=== PATIENT | male | born 1935 | race Caucasian/White ===

== ENCOUNTER 2017-06-29 20:07 | Inpatient (IN) | payer OTHER ==
[~2017-06-29] VITALS: Ht 185.4 cm; Wt 106.7 kg
[~2017-06-29 20:07] MED LIST: ATOR10TA82 PO; LISI-461 PO; MECL1TAB42 PO; METF500T PO; MULT-513 PO; OMEG10007 PO; TPRSR25 PO
[2017-06-29 20:51] LABS: BASO % 0.2 %; BASO ABS # 0.02 K/uL (0-0.2); EOS % 2.2 %; HEMATOCRIT 32.4 % (42-52); HEMOGLOBIN 9.8 g/dL (14.0-18.0); IG# 0.03 K/uL (0.00-0.02); LYMPH % 21.5 %; LYMPH ABS # 1.98 K/uL (1.2-3.4); MEAN CELL VOLUME 71.4 fL (80-100); MEAN CORPUSCULAR HEMOGLOBIN 21.6 pg (25-34); MEAN CORPUSCULAR HGB CONC 30.2 g/dl (32-36); MEAN PLATELET VOLUME 9.3 fL (7.4-10.4); MONO % 7.5 %; MONO ABS # 0.69 K/uL (0.11-0.59); NEUT % 68.3 %; NEUT ABS # 6.29 K/uL (1.4-6.5); PLATELET COUNT 317 K/uL (130-400); RED CELL DISTRIBUTION WIDTH SD 49.1 fL (36.4-46.3); WHITE BLOOD COUNT 9.21 K/uL (4.8-10.8)
[2017-06-29 21:13] LABS: ALBUMIN 3.2 gm/dl (3.4-5.0); CALCIUM 8.9 mg/dl (8.5-10.1); POTASSIUM 3.9 mmol/L (3.5-5.1)
[2017-06-29 21:16] LABS: TOTAL PROTEIN 7.2 gm/dl (6.4-8.2)
--- NOTE | 2017-06-29 21:18 | EMERGENCY ROOM VISIT NOTE ---
History Report prepared by Wally: Mauricio Crook Under the Supervision of: Dr. Guzman Tadeo M.D. First contact with patient: 20:14 Chief Complaint: BLEEDING Stated Complaint: PASSING BLOOD History of Present Illness The patient is a 82 year old male who presents to the Emergency Room with complaints of persistent rectal bleeding beginning today. He states that he has seen "bright red" bleeding, but his stool appears very dark. He also complains of generalized weakness and diarrhea. Underwear. The patient denies abdominal pain, chest pain, SOB, or dizziness. He is on baby aspirin but denies using any other blood thinning medication. He was admitted to the hospital last month for similar symptoms, and received blood transfusions. He was scheduled for outpatient EGD and colonoscopy but not till July 17. Source of History: patient Onset: Today Position: other (rectum) Quality: other (bleeding) Timing: other (persistent) Associated Symptoms: + diarrhea, + weakness (generalized), No chest pain, No SOB, No abdominal pain Note: The patient denies any dizziness. Review of Systems See HPI for pertinent positives & negatives. A total of 10 systems reviewed and were otherwise negative. Past Medical & Surgical Medical Problems: (1) DM (diabetes mellitus) (2) Hypercholesteremia Surgical Problems: (1) S/P hip replacement Family History Omitted secondary to age Social History Smoking Status: Never Smoker Alcohol Use: occasionally Marital Status: Housing Status: lives with family Occupation Status: retired Current/Historical Medications Scheduled Atorvastatin (Lipitor), 10 MG PO HS Fish Oil ([place]-3), 1,000 MG PO QAM Lisinopril (Lisinopril), 10 MG PO QAM Meclizine Hcl (Meclizine Hcl), 1 TAB PO TID Metformin Hcl (Glucophage), 500 MG PO BID Metoprolol Succinate (Metoprolol Succinate ER), 25 MG PO DAILY Multivitamins/Minerals (Mvi With Minerals), 1 TAB PO QAM Allergies Coded Allergies: Oxycodone (Verified Adverse Reaction, Intermediate, MAKES PT HALLUCINATES , 06/29/17) Hydrocodone (Verified Adverse Reaction, Unknown, MAKES PT HALLUCINATE, 06/05) Physical Exam Vital Signs Date Time Temp Pulse Resp B/P (MAP) Pulse Ox O2 Delivery O2 Flow Rate FiO2 06/29/17 20:11 36.3 110 20 144/70 100 Room Air Physical Exam Constitutional: Vital signs reviewed. Eyes: Pupils are equal round reactive to light. Conjunctiva are noninjected. ENT: Pharynx is clear without erythema or exudate. Mucous membranes are moist. Neck supple without meningeal signs. Respiratory: Clear to auscultation bilaterally. Breath sounds are equal bilaterally. Cardiovascular: Regular rate and rhythm. No rubs or gallops. GI: Soft, nondistended and nontender. Bowel sounds are present. Rectal: Guaiac positive, brown stool. No gross blood. Musculoskeletal: No peripheral edema. No lower extremity tenderness. Integumentary: No cyanosis. Neurological: The patient is awake and alert. No focal deficits. Psychiatric: Normal affect. Medical Decision & Procedures Laboratory Results 06/29/17 20:30 Red Blood Count 4.54, Mean Corpuscular Volume 71.4, Mean Corpuscular Hemoglobin 21.6, Mean Corpuscular Hemoglobin Concent 30.2, Mean Platelet Volume 9.3, Neutrophils (%) (Auto) 68.3, Lymphocytes (%) (Auto) 21.5, Monocytes (%) (Auto) 7.5, Eosinophils (%) (Auto) 2.2, Basophils (%) (Auto) 0.2, Neutrophils # (Auto) 6.29, Lymphocytes # (Auto) 1.98, Monocytes # (Auto) 0.69, Eosinophils # (Auto) 0.20, Basophils # (Auto) 0.02 06/29/17 20:30 Test 06/29/17 20:30 White Blood Count 9.21 K/uL (4.8-10.8) Red Blood Count 4.54 M/uL (4.7-6.1) Hemoglobin 9.8 g/dL (14.0-18.0) Hematocrit 32.4 % (42-52) Mean Corpuscular Volume 71.4 fL (80-100) Mean Corpuscular Hemoglobin 21.6 pg (25-34) Mean Corpuscular Hemoglobin Concent 30.2 g/dl (32-36) Platelet Count 317 K/uL (130-400) Mean Platelet Volume 9.3 fL (7.4-10.4) Neutrophils (%) (Auto) 68.3 % Lymphocytes (%) (Auto) 21.5 % Monocytes (%) (Auto) 7.5 % Eosinophils (%) (Auto) 2.2 % Basophils (%) (Auto) 0.2 % Neutrophils # (Auto) 6.29 K/uL (1.4-6.5) Lymphocytes # (Auto) 1.98 K/uL (1.2-3.4) Monocytes # (Auto) 0.69 K/uL (0.11-0.59) Eosinophils # (Auto) 0.20 K/uL (0-0.5) Basophils # (Auto) 0.02 K/uL (0-0.2) RDW Standard Deviation 49.1 fL (36.4-46.3) RDW Coefficient of Variation 19.0 % (11.5-14.5) Immature Granulocyte % (Auto) 0.3 % Immature Granulocyte # (Auto) 0.03 K/uL (0.00-0.02) Prothrombin Time 10.7 SECONDS (9.0-12.0) Prothromb Time International Ratio 1.0 (0.9-1.1) Activated Partial Thromboplast Time 25.0 SECONDS (21.0-31.0) Partial Thromboplastin Ratio 1.0 Anion Gap 8.0 mmol/L (3-11) Est Creatinine Clear Calc Drug Dose 72.6 ml/min Estimated GFR () 80.9 Estimated GFR (Non- 69.8 BUN/Creatinine Ratio 27.2 (10-20) Calcium Level 8.9 mg/dl (8.5-10.1) Direct Bilirubin 0.1 mg/dl (0-0.2) Alanine Aminotransferase (ALT/SGPT) 20 U/L (12-78) Albumin 3.2 gm/dl (3.4-5.0) Laboratory results as reviewed by me. ED Course 2018: The patient was evaluated in room B7. A complete history and physical exam was performed. 2104: I reevaluated the patient. He is resting comfortably. I recommended hospitalization due to the GI bleed and anemia. He verbalized agreement and understanding of the treatment plan. The patient will be evaluated for further management. Medical Decision This is an 82-year-old male presents with dizziness and rectal bleeding. Differential diagnosis includes GI bleed, AVM, diverticulosis, mass, anemia. I did perform a limited focused review of portions of the patient's old chart on the electronic medical record. The patient was admitted June 18 for anemia and dizziness. He had Hemoccult positive stool at this time. He received a transfusion and was sent for outpatient EGD and colonoscopy. Last hemoglobin was 9.6 on June 19. I did evaluate the patient as noted above. Rectal examination shows guaiac positive dark brown stool. No melena or gross blood. IV access was established. The patient was placed on a continuous monitoring engineer. I did order and review the patient's blood work as noted in the electronic medical record. He is anemic. I did discuss the test results with the patient. Given he is symptomatic and anemic and has a history of rectal bleeding requiring transfusion I did feel he needed to be hospitalized. I did discuss the case with the hospitalist and gearcase assembler. Medication Reconcilliation Current Medication List: was personally reviewed by me Blood Pressure Screening Patient's blood pressure: Elevated blood pressure Blood pressure disposition: Referred to PCP Consults Time Called: 2104 Consulting Physician: Dr. Christa Wright Hospitalist Returned Call: [address] Goodwin of [facility]. We discussed the patient and his results. The patient will be further evaluated by Rohit. Impression Primary Impression: GI bleed Additional Impression: Anemia Scribe Attestation The scribe's documentation has been prepared under my direct and personally reviewed by me in its entirety. I confirm that the note above accurately reflects all work, treatment, procedures, and medical decision making performed by me. Departure Information Dispostion Being Evaluated By Hospitalist Referrals Ena Lau M.D. (MEDICAL) (PCP) Patient Instructions My [facility] Problem Qualifiers Primary Impression: GI bleed GI bleed type/associated pathology: unspecified gastrointestinal hemorrhage type Qualified Codes: K92.2 - Gastrointestinal hemorrhage, unspecified Additional Impression: Anemia Anemia type: unspecified type Qualified Codes: D64.9 - Anemia, unspecified
--- NOTE | 2017-06-29 21:20 | History and Physical ---
History & Physical Date & Time of Service: Jun 29, 2017 at 21:20 Chief Complaint: Passing Blood Primary Care Physician: Ena Lau M.D. (MEDICAL) History of Present Illness Source: patient, spouse Patient is an 82 yr male with PMH of HTN, HLP, DM II, Prostate cancer s/ p radiation, mood disorder, chronic dizziness and other problems who was recently discharged from [facility] after being treated for Dizziness and PRBCs transfusion for anemia/GI bleeding presents with history of bright red per rectum which he noticed to day. Patient is a poor historian and most of the history is obtained from Patient's spouse and old records. Patient reports noticing bright red blood in his underwear today and also some dark colored stools and so came to ED for further evaluation. Also reports generalized weakness and has loose BM today. Reports his dizziness is better when compared to prior admission. He was scheduled for EGD/Colonoscopy on Jul 17 by . In ED patient had dark colored stool and is guaiac positive but no active bleeding. He is on Aspirin at home, denies any NSAIDs or Antibiotic use/Blood thinners. Also denies any chest pain, SOB, fever, chills, abdominal pain, nausea, vomiting, headache, cough, hematuria, dysuria. Past Medical/Surgical History Medical Problems: (1) DM (diabetes mellitus) Status: Chronic (2) Hypercholesteremia Status: Chronic Family History Omitted secondary to age Not significant Social History Smoking Status: Never Smoker Alcohol Use: socially Drug Use: none Marital Status: Housing status: lives alone Occupational Status: retired Immunizations History of Influenza Vaccine: No History of Tetanus Vaccine?: Unknown History of Pneumococcal: No History of Hepatitis B Vaccine: No Multi-Drug Resistant Organisms History of MDRO: No Allergies Coded Allergies: Oxycodone (Verified Adverse Reaction, Intermediate, MAKES PT HALLUCINATES , 06/29/17) Hydrocodone (Verified Adverse Reaction, Unknown, MAKES PT HALLUCINATE, 06/05) Home Medications Scheduled Aspirin (Aspirin Ec), 81 MG PO DAILY Atorvastatin (Lipitor), 10 MG PO HS Fish Oil ([place]-3), 1,000 MG PO QAM Lisinopril (Lisinopril), 10 MG PO QAM Meclizine Hcl (Meclizine Hcl), 1 TAB PO TID Metformin Hcl (Glucophage), 500 MG PO BID Metoprolol Succinate (Metoprolol Succinate ER), 25 MG PO DAILY Multivitamins/Minerals (Mvi With Minerals), 1 TAB PO QAM Review of Systems See HPI for pertinent positives & negatives. A total of 10 systems reviewed and were otherwise negative. Physical Exam Vital Signs Date Time Temp Pulse Resp B/P (MAP) Pulse Ox O2 Delivery O2 Flow Rate FiO2 06/29/17 20:11 36.3 110 20 144/70 100 Room Air General Appearance: WD/WN, no apparent distress Head: normocephalic, atraumatic Eyes: normal inspection, PERRL, EOMI, sclerae normal ENT: normal ENT inspection, + pertinent finding (hearing loss) Neck: supple, trachea midline Respiratory/Chest: chest non-tender, lungs clear, normal breath sounds, no respiratory distress, no accessory muscle use Cardiovascular: regular rate, rhythm, no murmur, + pertinent finding (1+ b/l edema) Abdomen/GI: normal bowel sounds, non tender, soft, + pertinent finding (Obese) Back: normal inspection Extremities/Musculoskelatal: normal inspection, + pedal edema Neurologic/Psych: sample color maker II-XII nml as tested, no motor/sensory deficits, alert, normal mood/affect, oriented x 3 Skin: normal color, warm/dry Diagnostics Laboratory Results Results Past 24 Hours Test 06/29/17 20:30 Range/Units White Blood Count 9.21 4.8-10.8 K/uL Red Blood Count 4.54 4.7-6.1 M/uL Hemoglobin 9.8 14.0-18.0 g/dL Hematocrit 32.4 42-52 % Mean Corpuscular Volume 71.4 80-100 fL Mean Corpuscular Hemoglobin 21.6 25-34 pg Mean Corpuscular Hemoglobin Concent 30.2 32-36 g/dl Platelet Count 317 130-400 K/uL Mean Platelet Volume 9.3 7.4-10.4 fL Neutrophils (%) (Auto) 68.3 % Lymphocytes (%) (Auto) 21.5 % Monocytes (%) (Auto) 7.5 % Eosinophils (%) (Auto) 2.2 % Basophils (%) (Auto) 0.2 % Neutrophils # (Auto) 6.29 1.4-6.5 K/uL Lymphocytes # (Auto) 1.98 1.2-3.4 K/uL Monocytes # (Auto) 0.69 0.11-0.59 K/uL Eosinophils # (Auto) 0.20 0-0.5 K/uL Basophils # (Auto) 0.02 0-0.2 K/uL RDW Standard Deviation 49.1 36.4-46.3 fL RDW Coefficient of Variation 19.0 11.5-14.5 % Immature Granulocyte % (Auto) 0.3 % Immature Granulocyte # (Auto) 0.03 0.00-0.02 K/uL Prothrombin Time 10.7 9.0-12.0 SECONDS Prothromb Time International Ratio 1.0 0.9-1.1 Activated Partial Thromboplast Time 25.0 21.0-31.0 SECONDS Partial Thromboplastin Ratio 1.0 Sodium Level 139 136-145 mmol/L Potassium Level 3.9 3.5-5.1 mmol/L Chloride Level 105 98-107 mmol/L Carbon Dioxide Level 27 21-32 mmol/L Anion Gap 8.0 3-11 mmol/L Blood Urea Nitrogen 27 7-18 mg/dl Creatinine 1.00 0.60-1.40 mg/dl Est Creatinine Clear Calc Drug Dose 72.6 ml/min Estimated GFR () 80.9 Estimated GFR (Non- 69.8 BUN/Creatinine Ratio 27.2 10-20 Random Glucose 161 70-99 mg/dl Calcium Level 8.9 8.5-10.1 mg/dl Total Bilirubin 0.3 0.2-1 mg/dl Direct Bilirubin 0.1 0-0.2 mg/dl Aspartate Amino Transf (AST/SGOT) 15 15-37 U/L Alanine Aminotransferase (ALT/SGPT) 20 12-78 U/L Alkaline Phosphatase 81 45-117 U/L Total Protein 7.2 6.4-8.2 gm/dl Albumin 3.2 3.4-5.0 gm/dl Impression Assessment and Plan Acute GI bleed: unclear source Admit in Tele Start on IV Protonix Hold Aspirin Avoid NSAIDs use Hb:9.8 (9.6 at time of discharge on last admission) Monitor H&H Transfuse PRBCs PRN GI consulted IV fluids NPO for now HTN: stable continue home meds DM II: Hold Metformin ISS, Acuu checks Last A1C:6.5 H/O Prostate cancer s/p radiation Mood disorder: stable Chronic Anemia:Likely multifactorial Monitor Hb 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
[2017-06-29] MEDS ORDERED: ONDANSETRON INJ 2 MG/ML 2 ML VIAL IV PRN (22:00)
[2017-06-29] MEDS ORDERED: ACETAMINOPHEN 325 MG TAB PO PRN (22:00)
[2017-06-29] MEDS ORDERED: ASPI81TA28 PO (22:01)
[2017-06-29] MEDS ORDERED: GLUCOSE 10 TABS/TUBE PO PRN (22:15)
[2017-06-29] MEDS ORDERED: GLUCOSE 40% GEL 15 GM TUBE PO PRN (22:15)
[2017-06-29] MEDS ORDERED: DEXTROSE 50% 50 ML SYR IV PRN (22:15)
[2017-06-29] MEDS ORDERED: GLUCAGON FOR INJ 1 MG VIAL SQ PRN (22:15)
--- NOTE | 2017-06-29 22:40 | NUR ---
A: Pt admitted for GI bleed. A+O X 4, wears glasses and hearing aides. VSS. SR on monitor, denies chest pain or SOB. 1 assist OOB, dizziness at times, fallen in past 3 months, will apply red socks, encouraged to use call bazan for assistance. SL in R wrist, WNL. Denies pain. Oriented to room and call bazan.
[2017-06-29] MEDS ORDERED: PANTOprazole INJ 40 MG in SYRINGE 0 ML IV ONE (22:45)
[2017-06-29] MEDS ORDERED: SODIUM CHLORIDE 0.9% 1000ML 1,000 ML IV SCH (22:45)
[2017-06-29 23:55] VITALS: BP 130/68; PULSE 76; TEMP 36.9; O2SAT 95
[2017-06-30] VITALS (8 sets, daily range): BP systolic 107–155; BP diastolic 69–82; PULSE 69–107; TEMP 36.3–36.9; O2SAT 94–100; Ht 185.4 cm; Wt 106.7 kg
--- NOTE | 2017-06-30 00:40 | NUR ---
A: Pt is A&OX4. VSS. SR on the monitor with periods of possible dropped beats or pauses. notified. Lung sounds are clear on R/A. Denies pain. NSS infusing at 80ml/hr. Hourly rounding maintained for safety. Will continue to monitor.
[2017-06-30] MEDS ORDERED: MAGNESIUM SULFATE 1GM / D5W 1 GM in PREMIXED IN D5W 100 ML IV STA (01:29)
--- NOTE | 2017-06-30 01:29 | NUR ---
A; EKG OBTAINED PER MD ORDER. EKG TRANSMITTED.
[2017-06-30] MEDS ORDERED: POTASSIUM CHLORIDE 10 MEQ TABCR PO STA (01:30)
[2017-06-30] MEDS ORDERED: SODIUM CHLORIDE 0.9% IV SCH ×2 (01:45)
[2017-06-30] MEDS ORDERED: POTASSIUM CHLR IV SCH ×2 (01:45)
[2017-06-30] MEDS ORDERED: WTR IV SCH ×2 (01:45)
[2017-06-30] MEDS: NSS + 20MEQ KCL 1000ML 1,000 ML IV SCH ×2 (02:07→17:08)
--- NOTE | 2017-06-30 04:00 | NUR ---
A: Pt is resting comfortably in bed. EKG done during the night. SR on the monitor. Possible pauses / dropped beats have decreased in frequency. 1g mag given and NSS + 20MEQ kcl infusing at 80ml/hr. VSS. Hourly rounding maintained for safety. Will continue to monitor.
[2017-06-30 04:51] LABS: HEMATOCRIT 27.9 % (42-52); HEMOGLOBIN 8.6 g/dL (14.0-18.0); MEAN CELL VOLUME 70.6 fL (80-100); MEAN CORPUSCULAR HEMOGLOBIN 21.8 pg (25-34); MEAN CORPUSCULAR HGB CONC 30.8 g/dl (32-36); MEAN PLATELET VOLUME 9.5 fL (7.4-10.4); PLATELET COUNT 270 K/uL (130-400); RED CELL DISTRIBUTION WIDTH CV 18.9 % (11.5-14.5); RED CELL DISTRIBUTION WIDTH SD 49.2 fL (36.4-46.3); WHITE BLOOD COUNT 7.36 K/uL (4.8-10.8)
[2017-06-30 05:17] LABS: CALCIUM 8.5 mg/dl (8.5-10.1); CREATININE 0.83 mg/dl (0.60-1.40); POTASSIUM 3.9 mmol/L (3.5-5.1)
[2017-06-30] MEDS: INSULIN ASPART 100 UNITS/ML 3 ML PEN SC SCH ×4 (06:30→21:42)
--- NOTE | 2017-06-30 08:00 | NUR ---
A/ID: Patient admitted with GI bleed. A&OX4. Denies pain, SOB, N/V. Skin intact. NSS+20Kcl at 80ml/hr infusing. No edema, positive pulses. Lungs are clear and diminished on room air. Abdomen is obese, nontender, soft. NSR with 1st degree, IVCD, PAC, SA and mobitz on the monitor. BSG 136. NPO except meds this morning for possible EGD. Minimal assist OOB. Have not visualized a bowel movement yet this morning. Pt is from home. Encouraged to ring for assistance. Hourly rounding. Will continue to monitor.
--- NOTE | 2017-06-30 08:19 | Gastrointestinal Consultation ---
Gastrointestinal Consultation Date of Consultation: Jun 30, 2017 Attending Physician: Aileen Consulting Physician: Cliff Reason for Consultation: GIB History of Present Illness Patient is a 82 year old male w/ history of HTN, dyslipidemia, prostate CA S/P radiation who presented through the ED last night for evaluation of rectal bleeding. Pt was seen and evaluated, chart reviewed. Of note, he was admitted for lightheadedness, dizziness and rectal bleeding early June, discharged w / plan for outpatient EGD/Colonoscopy in two weeks. He notes return of BRBPR about two days ago. He has had 2-3 semi-formed stools with BRB. No clots. No melena. No abdominal pain. No rectal pain. Denies fever, chills, CP, SOB, abdominal pain. In ED, VSS, afebrile without leukocytosis. Hb was 9.8, repeat this AM 8.6. BUN 27, creat 1. He is awake, alert, oriented, sitting up in bed. Past Medical/Surgical History Medical Problems: (1) Anemia Status: Acute (2) Anemia Status: Acute (3) Dizziness Status: Acute (4) GI bleed Status: Acute (5) GI bleed Status: Acute (6) Right leg DVT Status: Acute (7) Sprain of right knee Status: Acute Past Medical History: HTN, Hyperlipidemia, DM2, Prostate Cancer S/P radiation, DVT Past Surgical History: Bilat hip replacements Bilat shoulder replacements Urinary/prostate procedures. Colonoscopy Family History Omitted secondary to age Social History Smoking Status: Former Smoker Alcohol Use: occasionally Drug Use: none Marital Status: Housing Status: lives with family Occupation Status: retired Allergies Coded Allergies: Oxycodone (Verified Adverse Reaction, Intermediate, MAKES PT HALLUCINATES , 06/29/17) Hydrocodone (Verified Adverse Reaction, Unknown, MAKES PT HALLUCINATE, 06/05) Current Medications Home Meds and Scripts Medications Dose Route/Sig Max Daily Dose Days Date Category Aspirin Ec (Aspirin) 81 Mg Tab 81 Mg PO DAILY 06/29/17 Reported Meclizine Hcl Unknown Strength Tab 1 Tab PO TID 06/18/17 Reported Lipitor (Atorvastatin Calcium) 10 Mg Tab 10 Mg PO HS 06/18/17 Reported Metoprolol Succinate ER (Metoprolol Succinate) 25 Mg Tabcr 25 Mg PO DAILY 09/03/15 Reported Mvi With Minerals (Multivitamins/Minerals) Tab 1 Tab PO QAM 01/11/14 Reported [place]-3 (Fish Oil) 1 Ea Cap 1,000 Mg PO QAM 01/11/14 Reported Lisinopril 10 Mg Tab 10 Mg PO QAM 01/11/14 Reported Glucophage (Metformin Hcl) 500 Mg Tab 500 Mg PO BID 12/25/11 Reported Review of Systems Constitutional: No fever, No chills Respiratory: No cough, No shortness of breath Abdomen: + GI bleeding, No pain, No nausea, No vomiting, No diarrhea, No constipation Physical Exam Date Time Temp Pulse Resp B/P (MAP) Pulse Ox O2 Delivery O2 Flow Rate FiO2 06/30/17 07:15 36.9 69 18 107/69 (82) 96 06/30/17 04:04 36.8 83 20 122/76 (91) 94 Room Air 06/30/17 04:00 Room Air 06/30/17 00:00 36.8 88 18 154/74 100 Room Air 06/29/17 23:55 36.9 76 20 130/68 (88) 95 Room Air 06/29/17 22:21 82 20 121/67 99 Room Air 06/29/17 22:02 80 06/29/17 21:19 88 20 124/64 96 Room Air 06/29/17 20:11 36.3 110 20 144/70 100 Room Air General Appearance: no apparent distress Eyes: PERRL ENT: hearing grossly normal Neck: supple Respiratory/Chest: lungs clear, normal breath sounds Cardiovascular: regular rate, rhythm Abdomen: normal bowel sounds, non tender, soft, no organomegaly Neurologic/Psych: no motor/sensory deficits, alert, normal mood/affect, oriented x 3 Skin: normal color, no rash Laboratory Results Last 24 Hours Test 06/29/17 20:30 06/29/17 22:47 06/30/17 04:18 06/30/17 07:30 White Blood Count 9.21 K/uL 7.36 K/uL Red Blood Count 4.54 M/uL 3.95 M/uL Hemoglobin 9.8 g/dL 8.6 g/dL Hematocrit 32.4 % 27.9 % Mean Corpuscular Volume 71.4 fL 70.6 fL Mean Corpuscular Hemoglobin 21.6 pg 21.8 pg Mean Corpuscular Hemoglobin Concent 30.2 g/dl 30.8 g/dl Platelet Count 317 K/uL 270 K/uL Mean Platelet Volume 9.3 fL 9.5 fL Neutrophils (%) (Auto) 68.3 % Lymphocytes (%) (Auto) 21.5 % Monocytes (%) (Auto) 7.5 % Eosinophils (%) (Auto) 2.2 % Basophils (%) (Auto) 0.2 % Neutrophils # (Auto) 6.29 K/uL Lymphocytes # (Auto) 1.98 K/uL Monocytes # (Auto) 0.69 K/uL Eosinophils # (Auto) 0.20 K/uL Basophils # (Auto) 0.02 K/uL RDW Standard Deviation 49.1 fL 49.2 fL RDW Coefficient of Variation 19.0 % 18.9 % Immature Granulocyte % (Auto) 0.3 % Immature Granulocyte # (Auto) 0.03 K/uL Microcytosis PRESENT Tear Drop Cells 1+ Ovalocytes 1+ Acanthocytes 1+ Prothrombin Time 10.7 SECONDS Prothromb Time International Ratio 1.0 Activated Partial Thromboplast Time 25.0 SECONDS Partial Thromboplastin Ratio 1.0 Sodium Level 139 mmol/L 138 mmol/L Potassium Level 3.9 mmol/L 3.9 mmol/L Chloride Level 105 mmol/L 108 mmol/L Carbon Dioxide Level 27 mmol/L 25 mmol/L Anion Gap 8.0 mmol/L 5.0 mmol/L Blood Urea Nitrogen 27 mg/dl 27 mg/dl Creatinine 1.00 mg/dl 0.83 mg/dl Est Creatinine Clear Calc Drug Dose 72.6 ml/min 87.9 ml/min Estimated GFR () 80.9 95.0 Estimated GFR (Non- 69.8 81.9 BUN/Creatinine Ratio 27.2 32.8 Random Glucose 161 mg/dl 147 mg/dl Calcium Level 8.9 mg/dl 8.5 mg/dl Magnesium Level 1.8 mg/dl 1.9 mg/dl Total Bilirubin 0.3 mg/dl Direct Bilirubin 0.1 mg/dl Aspartate Amino Transf (AST/SGOT) 15 U/L Alanine Aminotransferase (ALT/SGPT) 20 U/L Alkaline Phosphatase 81 U/L Total Protein 7.2 gm/dl Albumin 3.2 gm/dl Bedside Glucose 185 mg/dl 136 mg/dl Impression Patient is a 82 year old male microcytic anemia, occult positive stool who was admitted 06/19/17, evaluated by GI w/ plan for outpatient EGD/Colonoscopy. Pt developed BRBPR three days ago, sought ED care and was admitted. Notes painless rectal bleeding, BRBPR, without clots. No abdominal pain. No melena. He has a history of prostate cancer w/ radiation. UGI bleed (less likely) vs LGI bleed ( hemorrhoidal, radiation proctitis). He will need an EGD, Colonoscopy. EKG this AM was abnormal, BBB. Were present on his last EKG. Plan - IV PPI - Trend H&H - Transfuse PRN - ?Cardiology for irregular EKG - Discussed with Dr. Doyle who will review EKG - NPO for EGD today - Colonoscopy tomorrow - Follow up stool studies Please call with any questions or concerns. I performed a history and physical examination of the patient, including specifically on physical exam - abdomen is soft. I have discussed the patient's management with Cheri. Please refer to the AIRCRAFT ARM[employer] MECHANIC's note for the documented findings and plan of care. Patient with anemia and reports rectal bleeding. Prior Hx of pelvic radiation for prostate Ca. 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 Will do EGD today and prep for colonoscopy tomorrow.
[2017-06-30] MEDS ORDERED: LISINOPRIL 10 MG TAB PO SCH (09:00)
[2017-06-30] MEDS ORDERED: PANTOprazole INJ 40 MG in SYRINGE 0 ML IV SCH ×2 (09:00→11:00)
[2017-06-30] MEDS ORDERED: METOPROLOL SUCC 25MG EXT REL TAB PO SCH (09:00)
--- NOTE | 2017-06-30 10:01 | Consultant Recommendations ---
Can Tester Recommendations Date of Service Jun 30, 2017. Can Tester Recommendations Full consult dictated. Addendum: spoke with , Carlene, by phone. Explained that I would place the patient at a moderate risk level for adverse ame-procedural cardiovascular event with risk of approximately <5%. She was further counseled that no further cardiac testing or intervention would further lower that risk. She states that she understands, she is accepting of that risk and wishes to proceed with EGD and colonoscopy. No need to delay from cardiac standpoint.
--- NOTE | 2017-06-30 10:19 | Clinical Documentation Query ---
CLINICAL DOCUMENTATION QUERY An 82 yr male with PMH of HTN, HLP, DM II, Prostate cancer s/ p radiation, mood disorder, chronic dizziness and other problems who was recently discharged from [facility] after being treated for Dizziness and PRBCs transfusion for anemia/GI bleeding presents with history of bright red per rectum which he noticed to day. In your clinical opinion is this patient being managed for: ( ) Acute blood-loss anemia ( ) Not Agree ( ) Other explanation of clinical findings (Please Explain) ( ) Unable to determine (Please Define) ( x) Need to Discuss The presumed diagnosis to date is anemia due to blood loss. However, today's upper endoscopy did not find upper GI bleed. Patient to get colonoscopy on 06/30/17 so will know more of the diagnosis in future The medical record reflects the following clinical findings, treatment, and risk factors. Clinical Indicators: Hgb 9.8 trending down to 8.6, rectal bleeding, dizziness Treatment: Serial H&Hs, type/cross PRBCs, Gastro consult Risk Factors: Acute GI bleed, age Please clarify and document your clinical opinion in the progress notes and discharge summary. Terms such as "probable", "suspected", "likely", "questionable", "possible", or "still to be ruled out" are acceptable. IF IN AGREEMENT, YOU MUST DOCUMENT ABOVE DIAGNOSTIC STATEMENT IN DAILY PROGRESS NOTES AND DISCHARGE SUMMARY. This document is not part of the patient's record. Thank You, Elizabeth Curiel RN [phone]
[2017-06-30] MEDS ORDERED: METOPROLOL SUCC 25MG EXT REL TAB PO ONE (10:30)
--- NOTE | 2017-06-30 10:48 | CARDIOLOGY CONSULTATION ---
DATE OF CONSULTATION: 06/30/2017 CONSULTATION REQUESTED BY: Dr. Doyle. REASON FOR CONSULTATION: Abnormal EKG. HISTORY OF PRESENT ILLNESS: Mr. Noyola is a very pleasant 82-year-old gentleman who presented to [facility] on 06/29/2017 with a complaint of dizziness and bright red blood per rectum. The patient was recently admitted to [facility] approximately 2 weeks ago for similar complaints and at that time, he was scheduled for an outpatient upper endoscopy and colonoscopy, but he presented to the Emergency Department with bright red blood per rectum. Currently, the patient states he feels well. He states that for the last several weeks, he has been having dizziness and loss of balance with orthostatic changes. He states that he leans over to wash his face and stands up, he will get dizzy or even if when he first stands up out of bed in the morning, he will get dizzy and weak and sometime, his legs will get weak under him and he will stagger, but he denies actually lose any consciousness. Otherwise, he denies any chest pain, shortness of breath, or palpitations. The patient is currently answering all questions appropriately. He does have a chart history of dementia. I attempted to call his at home number listed and phone call went to voice mail and a message was left. PAST SURGICAL HISTORY: 1. Prostate radiation. 2. Cataract surgery. 3. Hip replacement with subsequent revision. 4. Bilateral shoulder surgery. 5. Dental extractions. 6. Colonoscopy. MEDICAL ILLNESSES: 1. Diabetes. 2. History of right lower extremity DVT. 3. Chronic right bundle branch block. 4. Hypertension. 5. Dyslipidemia. 6. Prostate carcinoma. 7. Anemia. 8. Adjustment disorder with depressed mood. 9. Diastolic dysfunction with normal LV systolic function. FAMILY HISTORY: Noncontributory. SOCIAL HISTORY: Denies any cigarette use. Drinks rare alcohol. Denies any recreational drug use. He is and lives at home with his . She is the primary decision maker for him. REVIEW OF SYSTEMS: As per HPI. All other review of systems reviewed and negative at this time. ALLERGIES: 1. OXYCODONE. 2. HYDROCODONE. MEDICATIONS AN OUTPATIENT: 1. Aspirin 81 mg daily. 2. Lisinopril 5 mg daily. 3. Toprol-XL 12.5 mg daily. 4. Atorvastatin 20 mg daily. 5. Celexa daily. 6. Meclizine as needed. 7. Metformin b.i.d. PHYSICAL EXAMINATION: VITALS: Temperature 36.9, pulse 69, respiratory rate 12, and blood pressure 107/69. GENERAL: Awake, alert, and oriented x3, in no acute distress, out of bed in chair, and answering questions appropriately. HEENT: Normocephalic and atraumatic. Pupils equal, round, and reactive to light and accommodation. Extraocular muscles intact. Anicteric sclerae. Moist mucous membranes. NECK: No JVD and no bruit. CARDIOVASCULAR: Regular. Positive S4. Normal S1 and S2. No S3. No murmurs or rubs. PULMONARY: Clear to auscultation bilaterally. No rales, rhonchi, or wheezing. ABDOMEN: Bowel sounds x4. Soft. No rebound, guarding, or tenderness. No organomegaly. EXTREMITIES: No clubbing, cyanosis or edema. +2 pedal pulses bilaterally. SKIN: Warm and dry. TEST RESULTS: A 12-lead EKG performed on June 30 at 01:23 independently reviewed at this time, shows sinus rhythm at 81 beats per minute with first degree AV block and blocked premature atrial complexes, underlying right bundle branch block, and no signs of ischemia. Review of telemetry monitoring shows normal sinus rhythm with occasional blocked PACs, no significant ectopy or sustained arrhythmias. Followup EKG at 08:00 a.m. shows sinus rhythm with sinus arrhythmia. A 2D echocardiogram performed on 06/19/2017 was read as normal LV systolic function, EF 55%-60%, moderate aortic valve sclerosis without stenosis, mild basilar inferior wall hypokinesis, otherwise normal wall motion. Grade 1 diastolic dysfunction, mildly dilated right ventricle with normal systolic function by TAPSE. No significant valvular pathology. No change compared to previous study of December 2011. Stress test performed in December 2011 was read as positive exercise stress echocardiogram for ischemia. 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 IMPRESSION: 1. Periprocedural risk assessment. 2. Normal LV systolic function with grade 1 diastolic dysfunction. 3. Mildly positive stress test from 2011, apparently treated medically. 4. Hypertension. 5. Sinus arrhythmia and occasional blocked PACs. RECOMMENDATIONS: It was my pleasure to see Mr. Noyola in consultation today. Given the fact that he is asymptomatic from a cardiac standpoint, he appears to be suffered from orthostatic hypotension given his anemia and ongoing bleeding. The patient was counseled about placing him at a moderate risk for any adverse perioperative cardiovascular events. His risk would be approximately less than 5% and given the fact that he is medically stable on chronic beta ruth, he was counseled that no further cardiac testing or intervention would further lower that risk. He states he understands. He is accepting that risk and wished to proceed with GI upper endoscopy and colonoscopy. I did attempt to make contact with the patient's ; however, it went to voice mail, a message was left for her to return my phone call and I will relay this information to her as well. Otherwise, he should be continued on his metoprolol uninterrupted. It is okay to hold his aspirin at this time given the ongoing bleeding and the fact that he does not have any stents present in his coronary anatomy.
[2017-06-30] MEDS ORDERED: PROPOFOL IV EMULSION 10 MG/ML 20 ML VIAL IV ONE (11:20)
[2017-06-30] MEDS ORDERED: LIDOCAINE HCL 2% 2 ML VIAL (20MG/ML) ONE (11:20)
--- NOTE | 2017-06-30 11:28 | History & Physical Bridge Note ---
H&P Re-Evaluation Bridge Note: I have examined the patient, reviewed the History & Physical and in the interval since the performance of the History & Physical I have noted the following changes of clinical significance: No changes noted Stable for EGD
--- NOTE | 2017-06-30 11:40 | NUR ---
Discharge planning consult received. I met with the patient at bedside, he is alert and oriented. HE states that he lives in a double wide trailer with his . He currently has a walker and cane however doesn't use either. He has no history of home health services. Patient states that he is independent with adl's and drives. His assists with cleaning and cooking. No needs identified at this time, patient would benefit from pt/ot evals. Case management to follow.
[2017-06-30] MEDS ORDERED: SODIUM CHLORIDE 0.9% 500ML 500 ML IV ONE (11:45)
--- NOTE | 2017-06-30 11:54 | Gastroenterology Progress Note ---
Gastroenterology Progress Note Patient underwent EGD. Findings: Normal Esophagus, Stomach and Duodenum. Recommendations: Clear liquid diet. Prep for colonoscopy tomorrow.
--- NOTE | 2017-06-30 12:06 | Anesthesiology Progress Note ---
Anesthesia Post Op Note Date & Time Jun 30, 2017 at 12:06 Vital Signs Pain Intensity: 0 Vital Signs Past 12 Hours Date Time Temp Pulse Resp B/P (MAP) Pulse Ox O2 Delivery O2 Flow Rate FiO2 06/30/17 11:49 79 18 109/67 (81) 93 Room Air 06/30/17 11:14 36.8 84 18 132/75 (94) 94 Room Air 06/30/17 08:00 Room Air 06/30/17 07:15 36.9 69 18 107/69 (82) 96 06/30/17 04:04 36.8 83 20 122/76 (91) 94 Room Air 06/30/17 04:00 Room Air Notes Mental Status: alert / awake / arousable, participated in evaluation Pt Amnestic to Procedure: Yes Nausea / Vomiting: adequately controlled Pain: adequately controlled Airway Patency, RR, SpO2: stable & adequate BP & HR: stable & adequate Hydration State: stable & adequate Anesthetic Complications: no major complications apparent
--- NOTE | 2017-06-30 12:10 | GI REPORT ---
Procedure Date: 06/30/2017 11:34 AM Procedure: Upper GI endoscopy Indications: Acute post hemorrhagic anemia, Hematochezia Medicines: Monitored Anesthesia Care Complications: No immediate complications. Estimated Blood Loss: Estimated blood loss: none. Procedure: Pre-Anesthesia Assessment: - Prior to the procedure, a History and Physical was performed, and patient medications and allergies were reviewed. The patient is competent. The risks and benefits of the procedure and the sedation options and risks were discussed with the patient. All questions were answered and informed consent was obtained. Patient identification and proposed procedure were verified by the physician and the nurse in the procedure room. Mental Status Examination: normal. Airway Examination: normal oropharyngeal airway and neck mobility. Respiratory Examination: clear to auscultation. CV Examination: normal. ASA Grade Assessment: III - A patient with severe systemic disease. After reviewing the risks and benefits, the patient was deemed in satisfactory condition to undergo the procedure. The anesthesia plan was to use monitored anesthesia care (MAC). Immediately prior to administration of medications, the patient was re-assessed for adequacy to receive sedatives. The heart rate, respiratory rate, oxygen saturations, blood pressure, adequacy of pulmonary ventilation, and response to care were monitored throughout the procedure. The physical status of the patient was re-assessed after the procedure. After obtaining informed consent, the endoscope was passed under direct vision. Throughout the procedure, the patient's blood pressure, pulse, and oxygen saturations were monitored continuously. The scope was introduced through the mouth, and advanced to the second part of duodenum. The upper GI endoscopy was accomplished without difficulty. The patient tolerated the procedure well. Findings: The examined esophagus was normal. The entire examined stomach was normal. The duodenal bulb and 2nd part of the duodenum were normal. Impression: - Normal esophagus. - Normal stomach. - Normal duodenal bulb and 2nd part of the duodenum. - No specimens collected. Recommendation: - [facility] patient [facility]. - Clear liquid diet today. - Perform a colonoscopy tomorrow. Maddy Coronado MD 06/30/2017 12:10:23 PM This report has been signed electronically. Note Initiated On: 06/30/2017 11:34 AM I attest to the content of the Intraoperative Record and orders documented therein, exceptions below
[2017-06-30 12:49] LABS: HEMATOCRIT 29.5 % (42-52)
--- NOTE | 2017-06-30 13:30 | NUR ---
A: Resting comfortably. A&OX4. Denies pain, SOB, N/V. Patient had an EGD done this morning. Clear liquids until midnight tonight. Pt will be NPO for a colonoscopy tomorrow. Assessment complete, unchanged, see EMR. NSS+20Kcl infusing. Hourly rounding. Encouraged to ring for assistance. Will continue to monitor. is bedside.
--- NOTE | 2017-06-30 14:02 | NUR ---
Pastoral Care, consult received indicating yazdanism beliefs affecting care. Pt is Worship, belongs to the [facility]. Pt undergoing tests, hopes to go home soon, did not express any spiritual or yazdanism needs or concerns. I introduced our service, offered spiritual and emotional support, and assured him of my continuing availability and prayers on his behalf.
--- NOTE | 2017-06-30 16:15 | NUR ---
A: Patient is alert and oriented x4, lungs clear and slightly diminished on room air. Denies SOB or CP. SR with IVCD, PAC, PVC, and sinus arrhythmia on the monitor. Patient verbalizes BM today, states "I didn't see any blood in it". IV in right forearm infusin NS+20 meq KCl at 80 ml/hr. Clear liquid diet, will be NPO after midnight for colonoscopy tomorrow. Bowel prep to begin at 1700. Sitting in bed with at bedside. Encouraged to ring for assistance. Call bazan in reach, bed in lowest position, will continue to monitor.
[2017-06-30 16:36] LABS: HEMATOCRIT 27.5 % (42-52); HEMOGLOBIN 8.5 g/dL (14.0-18.0)
[2017-06-30] MEDS ORDERED: LAVAGE SOLUTION 4000ML PO SCH (17:00)
--- NOTE | 2017-06-30 17:30 | Progress Note ---
Progress Note Date of Service Jun 30, 2017. Progress Note Internal Medicine progress note 06/30/17 Subjective Patient seen and examined before and after upper endoscopy. Patient denies acute pain. No shortness of breath Possible blood loss anemia from GI bleed Workup to date with hemoglobin ranging from 9.8 to 8.5 s/p upper endoscopy on 06/30/17: Findings: Normal Esophagus, Stomach and Duodenum. GI recommends clear liquid diet and prep for colonoscopy tomorrow. HTN: stable continue home meds DM II: Hold Metformin ISS, Acuu checks Last A1C:6.5 History Prostate cancer with history of radiation treatments Mood disorder: stable Chronic dizziness: Likely orthostatic Meclizine PRN DVT Px: SCDs
--- NOTE | 2017-06-30 20:00 | NUR ---
A: Patient assessment remains unchanged. Patient denies SOB or CP. NSR with SA on monitor. Patient completed bowel prep for colonoscopy tomorrow without complications. No abdominal pain or nausea. Using bedside commode with x1 assist. IV in right forearm continuing to infuse NS+20 meq KCL @ 80 ml/hr. Clear liquid diet, to be NPO after midnight. Bed in lowest position, call bazan in reach, monitor on, will continue to monitor.
--- NOTE | 2017-07-01 | NUR ---
A NOTE: Npo mn. for upcoming Colonoscopy today. Loose, clear stools. Bowel prep given on prior shift. Iv fluids infusing. Vss. Normal sinus on monitor. 02 sat.maintained on Ra.
--- NOTE | 2017-07-01 04:00 | NUR ---
A note: Iv fluids continue. No recent bowel movements in past few hours. Previous stools have been clear with no solids evident. Vss. Normal sinus. Remains Npo. No s/s of active bleeding noted.
[2017-07-01 04:08] VITALS: BP 151/76; PULSE 68; TEMP 36.7; O2SAT 94
[2017-07-01] MEDS: NSS + 20MEQ KCL 1000ML 1,000 ML IV SCH (04:22)
[2017-07-01 05:32] LABS: BASO % 0.3 %; BASO ABS # 0.02 K/uL (0-0.2); EOS % 1.7 %; EOS ABS # 0.13 K/uL (0-0.5); HEMATOCRIT 28.3 % (42-52); HEMOGLOBIN 8.6 g/dL (14.0-18.0); IG# 0.03 K/uL (0.00-0.02); LYMPH ABS # 1.84 K/uL (1.2-3.4); MEAN CELL VOLUME 71.3 fL (80-100); MEAN CORPUSCULAR HEMOGLOBIN 21.7 pg (25-34); MEAN CORPUSCULAR HGB CONC 30.4 g/dl (32-36); MEAN PLATELET VOLUME 8.8 fL (7.4-10.4); MONO % 9.7 %; MONO ABS # 0.74 K/uL (0.11-0.59); NEUT % 63.9 %; PLATELET COUNT 272 K/uL (130-400); RED CELL DISTRIBUTION WIDTH SD 49.9 fL (36.4-46.3); WHITE BLOOD COUNT 7.66 K/uL (4.8-10.8)
[2017-07-01 06:11] LABS: ALBUMIN 2.8 gm/dl (3.4-5.0); CALCIUM 8.1 mg/dl (8.5-10.1); CREATININE 0.96 mg/dl (0.60-1.40); POTASSIUM 3.9 mmol/L (3.5-5.1); TOTAL PROTEIN 6.5 gm/dl (6.4-8.2)
[2017-07-01] MEDS: INSULIN ASPART 100 UNITS/ML 3 ML PEN SC SCH ×2 (06:30→11:00)
[2017-07-01 06:48] VITALS: BP 142/72; PULSE 69; TEMP 36.8; O2SAT 93
--- NOTE | 2017-07-01 08:00 | NUR ---
A/ID: Patient admitted with GI bleed. A&OX4. Confusion at times, reorients at times. Denies pain, SOB, N/V. Pt has diarrhea this morning, d/t colonoscopy prep for colonoscopy this afternoon. NSS+20Kcl at 80ml/hr infusing. BSG 142. Minimal assist with a walker OOB. No edema, positive pulses. NSR on the monitor. Lungs are clear on room air. Abdomen obese, soft, nontender. Pt is from home. Hourly rounding. Encouraged to ring for assistance. Will continue to monitor.
[2017-07-01] MEDS ORDERED: METOPROLOL SUCC 25MG EXT REL TAB PO SCH (09:00)
--- NOTE | 2017-07-01 09:22 | Progress Note ---
Progress Note Date of Service Jul 01, 2017. (Cheri Malhotra ., LULY) Progress Note Pt seen and evaluated, chart reviewed. No acute events overnight. Tolerated bowel prep, w/ clear liquid stools. Per pt no black/bloody stools. No abdominal pain. No fever, chills, CP, SOB. He is NPO for colonoscopy today. He is afebrile , hypertensive otherwise vitals signs WNL. No acute distress, heart RRR, lungs CTA, abd soft, non-distended, non-tender. There was some confusion by the pt as he thought his procedure was canceled. GI has plans for colonoscopy today. Please keep pt NPO for colonoscopy for evaluation of rectal bleeding and anemia. Please call with any acute changes. LULY Portillo (Cheri Malhotra ., LULY) I have seen and examined the patient prior to endoscopy today. (Chetna Valverde, DO)
--- NOTE | 2017-07-01 10:28 | Cardiology Follow-Up ---
Subjective Subjective Date of Service: Jul 01, 2017. Pt evaluation today including: conversation w/ patient, physical exam, chart review, lab review, review of studies, review of inpatient medication list Additional Details: Pt seen and examined, states that he's feeling well this morning. Somewhat more confused but denies cp, sob, palpitations, lightheadedness or dizziness. Tolerated EGD well. Tele reviewed: sinus rhythm with occasional PAC's. Problem List Medical Problems: (1) Anemia Status: Acute (2) Anemia Status: Acute (3) Dizziness Status: Acute (4) GI bleed Status: Acute (5) GI bleed Status: Acute (6) Right leg DVT Status: Acute (7) Sprain of right knee Status: Acute Review of Systems Constitutional: No fever, No chills Respiratory: No see HPI, No cough, No sputum, No wheezing, No shortness of breath, No dyspnea on exertion, No dyspnea at rest, No hemoptysis, No problem reported Cardiac: No see HPI, No chest pain, No orthopnea, No PND, No edema, No claudication, No palpitations, No problem reported Objective Vital Signs Last Vital Signs Documentation Date Time Temp Pulse Resp B/P (MAP) Pulse Ox O2 Delivery O2 Flow Rate FiO2 07/01/17 08:00 Room Air 07/01/17 06:48 36.8 69 18 142/72 (95) 93 Physical Exam: General Appearance: WD/WN, no apparent distress Eyes: bilateral eyes normal inspection, bilateral eyes PERRL, bilateral eyes EOMI ENT: normal ENT inspection, hearing grossly normal, pharynx normal Neck: supple, no adenopathy, thyroid normal, no JVD, no carotid bruits, trachea midline Respiratory/Chest: chest non-tender, lungs clear, normal breath sounds, no respiratory distress, no accessory muscle use Cardiovascular: regular rate, rhythm, no edema, no JVD, no murmur, + gallop/S4 Abdomen: normal bowel sounds, non tender, soft, no organomegaly, no pulsatile mass Extremities: normal inspection, no pedal edema, no calf tenderness 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 Preop cardiovascular risk assessment tolerated EGD well without complication for colonoscopy today, risk unchanged from original consult patient and both accepting of risk and wish to proceed as voiced on 2. CAD treated medically cont metoprolol uninterrupted restart aspirin once deemed feasible by GI
[2017-07-01] MEDS ORDERED: ENDOSCOPIC MARKER 5 ML SYR ONE (11:49)
[2017-07-01] MEDS ORDERED: OPTIRAY 320 IV PRN ×2 (12:15→12:30)
--- NOTE | 2017-07-01 12:15 | GI REPORT ---
Procedure Date: 07/01/2017 11:40 AM Procedure: Colonoscopy Indications: Hematochezia, Iron deficiency anemia Medicines: Propofol per Anesthesia Complications: No immediate complications. Estimated blood loss: Minimal. Estimated Blood Loss: Estimated blood loss was minimal. Procedure: Pre-Anesthesia Assessment: - Prior to the procedure, a History and Physical was performed, and patient medications, allergies and sensitivities were reviewed. The patient's tolerance of previous anesthesia was reviewed. - The risks and benefits of the procedure and the sedation options and risks were discussed with the patient. All questions were answered and informed consent was obtained. - Patient identification and proposed procedure were verified prior to the procedure by the physician and the nurse. The procedure was verified in the pre-procedure area in the procedure room. - Mental Status Examination: alert and oriented. Airway Examination: normal oropharyngeal airway and neck mobility. Respiratory Examination: clear to auscultation. CV Examination: normal. Abdominal Examination: bowel sounds present, abdomen soft and non-tender, no masses or organomegaly noted. - ASA Grade Assessment: III - A patient with severe systemic disease. After I obtained informed consent, the scope was passed under direct vision. Throughout the procedure, the patient's blood pressure, pulse, and oxygen saturations were monitored continuously. The scope was introduced through the anus with the intention of advancing to the cecum. The scope was advanced to the transverse colon before the procedure was aborted. Medications were given. The colonoscopy was performed without difficulty. The patient tolerated the procedure well. The quality of the bowel preparation was good. Findings: The perianal and digital rectal examinations were normal. Pertinent negatives include normal sphincter tone and no palpable rectal lesions. An area of significantly congested mucosa was found at 70 cm proximal to the anus. Biopsies were taken with a cold forceps for histology. Verification of patient identification for the specimen was done by the physician and nurse using the patient's name and date. Estimated blood loss was minimal. Area was tattooed with an injection of 3 mL of Anjelica ink. The exam was otherwise without abnormality. Impression: - A long segment of severely edematous, congested, friable mucosa starting at 70 cm proximal to the anus. Unable to advance scope beyond 75cm. Findings concerning for ischemic colitis vs malignancy. Biopsied. Tattooed. - Sigmoid diverticulosis. - The examination was otherwise normal. Recommendation: - Await pathology results. - Check CEA today. - Perform a CT scan (computed tomography) of abdomen with contrast and pelvis with contrast today. - Patient will need a repeat colonoscopy at some point to evaluate the remainder of the colon if this is ischemic colitis. If this is a malignancy, will need surgical evaluation. - Return patient to [facility] for ongoing care. - Advance diet as tolerated - advance as tolerated to resume previous diet. Chetna Valverde D.O. Chetna Valverde, 07/01/2017 12:14:46 PM This report has been signed electronically. Note Initiated On: 07/01/2017 11:40 AM I attest to the content of the Intraoperative Record and orders documented therein, exceptions below
--- NOTE | 2017-07-01 12:21 | Anesthesiology Progress Note ---
Anesthesia Post Op Note Date & Time Jul 01, 2017 at 12:21 Vital Signs Pain Intensity: 0 Vital Signs Past 12 Hours Date Time Temp Pulse Resp B/P (MAP) Pulse Ox O2 Delivery O2 Flow Rate FiO2 07/01/17 12:18 77 16 141/81 (101) 95 Room Air 07/01/17 12:02 71 12 115/70 (85) 98 Room Air 07/01/17 12:00 Room Air 07/01/17 11:24 36.4 73 18 144/87 (106) 97 Room Air 07/01/17 08:00 Room Air 07/01/17 06:48 36.8 69 18 142/72 (95) 93 Room Air 07/01/17 04:08 36.7 68 18 151/76 (101) 94 Room Air 07/01/17 04:00 Room Air Notes Mental Status: alert / awake / arousable, participated in evaluation Pt Amnestic to Procedure: Yes Nausea / Vomiting: adequately controlled Pain: adequately controlled Airway Patency, RR, SpO2: stable & adequate BP & HR: stable & adequate Hydration State: stable & adequate Anesthetic Complications: no major complications apparent
--- NOTE | 2017-07-01 13:00 | NUR ---
A: Patient returned from his colonoscopy. A&OX4 but get confused at times. Reorients easily. Assessment complete, unchanged, see EMR. Pt is drinking CT prep and will get a CT scan at 3PM. is at bedside. Hourly rounding. Encouraged to ring for assistance. Will continue to monitor.
--- NOTE | 2017-07-01 13:46 | NUR ---
Discharge planning. BOth pt/ot agree with discharge to home with family support. No additional needs identified at this time, case management to follow for changes.
[2017-07-01 15:46] VITALS: BP 155/83; PULSE 78; TEMP 36.4; O2SAT 97
--- NOTE | 2017-07-01 16:38 | DIAGNOSTIC IMAGING REPORT ---
ABDOMEN AND PELVIS CT WITH IV AND ORAL CONTRAST CT DOSE: 1102.42 mGycm HISTORY: Acute generalized abdominal pain with abnormal colonoscopy. Possible ischemic colitis. History of prostate cancer abnormal colonoscopy, ?ischemic colitis TECHNIQUE: Multiaxial CT images of the abdomen and pelvis were performed following the use of intravenous and oral contrast. A dose lowering technique was utilized adhering to the principles of ALARA. COMPARISON STUDY: CT pelvis 06/09/2014. FINDINGS: Study is mildly motion degraded. 5 mm subpleural solid nodule of the lateral basal segment right lower lobe seen on image 47 of series 3. Mild dependent bibasilar atelectasis. 2 mm nodule of the right lower lobe seen on image 104 series 3. No pneumatosis or pneumoperitoneum identified. The imaged inferior cardiac chambers are mildly enlarged with coronary arterial disease. Mitral annular calcifications. Liver, spleen, pancreas, gallbladder and adrenal glands are within normal limits. Mild nonspecific perinephric stranding is present bilaterally. No renal calculi, hydronephrosis or focal renal mass lesions identified. Ureters and urinary bladder are unremarkable. Brachytherapy seeds noted within the enlarged prostate. The pelvic structures are not well-seen secondary to streak artifact from bilateral hip arthroplasties. Moderate atherosclerosis of the aorta without aneurysm. There is prominent atherosclerosis involving the super mesenteric artery without definite thrombus identified. Mildly enlarged periportal lymph node measures 2.4 x 1.0 cm on image 148 series 3 with additional mildly enlarged periportal lymph node measuring 3.3 x 1.3. Small sliding-type hiatal hernia. No bowel obstruction. Mild collecting diverticulosis without diverticulitis. There is severe wall thickening involving a 13 cm long segment of the transverse colon and hepatic flexure with eccentric wall thickening greatest involving the mesenteric side. 5 mm lymph node is seen adjacent to the wall thickening, image 226 series 3. Mild associated surrounding inflammatory stranding. Soft tissues are unremarkable. Bones appear mildly demineralized. Multilevel degenerative changes of the spine. IMPRESSION: 1. Severe wall thickening involves a 13 cm long segment of the transverse colon and hepatic flexure with the mesenteric side of the bowel within this region demonstrating the greatest degree of wall thickening. Moderate associated inflammatory stranding with adjacent vascular congestion. Differential considerations would include an underlying mucosal mass lesion or focal colitis from infectious, inflammatory or ischemic etiology. Adjacent 5 mm lymph node may be reactive or metastatic. Correlate with colonoscopy findings. 2. Moderate atherosclerosis of the aorta and origin of the superior mesenteric artery without definite vessel occlusion identified. 3. Mild colonic diverticulosis without diverticulitis. 4. Brachytherapy seeds of the prostate. 5. Mild periportal adenopathy. 6. Additional findings as above. Electronically signed by: Bowen Donald M.D. 07/01/2017 4:36 PM Dictated Date/Time: 07/01/2017 4:23 PM
--- NOTE | 2017-07-01 17:53 | Progress Note ---
Internal Med Progress Note Date of Service: Jul 01, 2017. 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 The entire examined stomach was normal. The duodenal bulb and 2nd part of the duodenum were normal. Colonoscopy 07/01/17 - A long segment of severely edematous, congested, friable mucosa starting at 70 cm proximal to the anus. Unable to advance scope beyond 75cm. Findings concerning for ischemic colitis vs malignancy. Biopsied. Tattooed. - Sigmoid diverticulosis. - Patient will need a repeat colonoscopy at some point to evaluate the remainder of the colon if this is ischemic colitis. If this is a malignancy, will need surgical evaluation. CEA is negative CT abdomen 5 mm subpleural solid nodule of the lateral basal segment right lower lobe seen on image 47 of series 3. Mild dependent bibasilar atelectasis. 2 mm nodule of the right lower lobe seen on image 104 series 3. No pneumatosis or pneumoperitoneum identified. The imaged inferior cardiac chambers are mildly enlarged with coronary arterial disease. Mitral annular calcifications. Liver, spleen, pancreas, gallbladder and adrenal glands are within normal limits. Mild nonspecific perinephric stranding is present bilaterally. No renal calculi, hydronephrosis or focal renal mass lesions identified. Ureters and urinary bladder are unremarkable. Brachytherapy seeds noted within the enlarged prostate. The pelvic structures are not well-seen secondary to streak artifact from bilateral hip arthroplasties. Moderate atherosclerosis of the aorta without aneurysm. There is prominent atherosclerosis involving the super mesenteric artery without definite thrombus identified. Mildly enlarged periportal lymph node measures 2.4 x 1.0 cm on image 148 series 3 with additional mildly enlarged periportal lymph node measuring 3.3 x 1.3. Small sliding-type hiatal hernia. No bowel obstruction. Mild collecting diverticulosis without diverticulitis. There is severe wall thickening involving a 13 cm long segment of the transverse colon and hepatic flexure with eccentric wall thickening greatest involving the mesenteric side. 5 mm lymph node is seen adjacent to the wall thickening, image 226 series 3. Mild associated surrounding inflammatory stranding. Soft tissues are unremarkable. Bones appear mildly demineralized. Multilevel degenerative changes of the spine. IMPRESSION: 1. Severe wall thickening involves a 13 cm long segment of the transverse colon and hepatic flexure with the mesenteric side of the bowel within this region demonstrating the greatest degree of wall thickening. Moderate associated inflammatory stranding with adjacent vascular congestion. Differential considerations would include an underlying mucosal mass lesion or focal colitis from infectious, inflammatory or ischemic etiology. Adjacent 5 mm lymph node may be reactive or metastatic. Correlate with colonoscopy findings. 2. Moderate atherosclerosis of the aorta and origin of the superior mesenteric artery without definite vessel occlusion identified. 3. Mild colonic diverticulosis without diverticulitis. 4. Brachytherapy seeds of the prostate. 5. Mild periportal adenopathy. 6. Additional findings as above. Discharge to Home Follow up with 07/06/2017 1:00 PM Ena Lau MD [facility] Await Pathology results from Colonoscopy Instructions: Return to emergency room if seeing acute blood loss from rectum, severe abdominal pain, high fever, severe dizziness, loss of of consciousness Vital Signs: Date Time Temp Pulse Resp B/P (MAP) Pulse Ox O2 Delivery O2 Flow Rate FiO2 07/01/17 15:46 36.4 78 18 155/83 (107) 97 Room Air 07/01/17 12:32 66 16 143/80 (101) 97 Room Air 07/01/17 12:18 77 16 141/81 (101) 95 Room Air 07/01/17 12:02 71 12 115/70 (85) 98 Room Air 07/01/17 12:00 Room Air 07/01/17 11:24 36.4 73 18 144/87 (106) 97 Room Air 07/01/17 08:00 Room Air 07/01/17 06:48 36.8 69 18 142/72 (95) 93 Room Air 07/01/17 04:08 36.7 68 18 151/76 (101) 94 Room Air 07/01/17 04:00 Room Air 07/01/17 00:00 Room Air 06/30/17 23:23 36.5 70 18 149/79 (102) 98 Room Air 06/30/17 20:15 98 Room Air 06/30/17 19:47 36.3 107 20 155/82 (106) 98 Lab Results: Results Past 24 Hours Test 06/30/17 19:59 07/01/17 05:10 07/01/17 07:22 07/01/17 13:18 Range/Units Bedside Glucose 125 142 135 70-99 mg/dl White Blood Count 7.66 4.8-10.8 K/uL Red Blood Count 3.97 4.7-6.1 M/uL Hemoglobin 8.6 14.0-18.0 g/dL Hematocrit 28.3 42-52 % Mean Corpuscular Volume 71.3 80-100 fL Mean Corpuscular Hemoglobin 21.7 25-34 pg Mean Corpuscular Hemoglobin Concent 30.4 32-36 g/dl Platelet Count 272 130-400 K/uL Mean Platelet Volume 8.8 7.4-10.4 fL Neutrophils (%) (Auto) 63.9 % Lymphocytes (%) (Auto) 24.0 % Monocytes (%) (Auto) 9.7 % Eosinophils (%) (Auto) 1.7 % Basophils (%) (Auto) 0.3 % Neutrophils # (Auto) 4.90 1.4-6.5 K/uL Lymphocytes # (Auto) 1.84 1.2-3.4 K/uL Monocytes # (Auto) 0.74 0.11-0.59 K/uL Eosinophils # (Auto) 0.13 0-0.5 K/uL Basophils # (Auto) 0.02 0-0.2 K/uL RDW Standard Deviation 49.9 36.4-46.3 fL RDW Coefficient of Variation 19.0 11.5-14.5 % Immature Granulocyte % (Auto) 0.4 % Immature Granulocyte # (Auto) 0.03 0.00-0.02 K/uL Anisocytosis PRESENT Tear Drop Cells OCCASIONAL Ovalocytes 1+ Acanthocytes 1+ Schistocytes OCCASIONAL Sodium Level 139 136-145 mmol/L Potassium Level 3.9 3.5-5.1 mmol/L Chloride Level 109 98-107 mmol/L Carbon Dioxide Level 24 21-32 mmol/L Anion Gap 6.0 3-11 mmol/L Blood Urea Nitrogen 16 7-18 mg/dl Creatinine 0.96 0.60-1.40 mg/dl Est Creatinine Clear Calc Drug Dose 76.0 ml/min Estimated GFR () 85.0 Estimated GFR (Non- 73.3 BUN/Creatinine Ratio 16.9 10-20 Random Glucose 119 70-99 mg/dl Calcium Level 8.1 8.5-10.1 mg/dl Total Bilirubin 0.5 0.2-1 mg/dl Aspartate Amino Transf (AST/SGOT) 16 15-37 U/L Alanine Aminotransferase (ALT/SGPT) 18 12-78 U/L Alkaline Phosphatase 63 45-117 U/L Total Protein 6.5 6.4-8.2 gm/dl Albumin 2.8 3.4-5.0 gm/dl Globulin 3.7 2.5-4.0 gm/dl Albumin/Globulin Ratio 0.8 0.9-2 Test 07/01/17 13:55 07/01/17 16:50 Range/Units Carcinoembryonic Antigen 0.9 0-2.5 ng/ml Bedside Glucose 126 70-99 mg/dl
--- NOTE | 2017-07-01 18:36 | Discharge Instructions ---
Discharge Instructions Date of Service Jul 01, 2017. Admission Reason for Admission: Gi Bleed Discharge Discharge Diagnosis / Problem: GI bleed, Anemia colon thickening: colon mass vs colitis Discharge Goals Goal(s): Diagnostic testing Activity Recommendations Activity Limitations: per Instructions/Follow-up section Driving or Machine Use: no limitations . Instructions / Follow-Up Instructions / Follow-Up Anemia, Hemoglobin stable during hospital admission and no transfusions required Upper endoscopy 06/30/17 The examined esophagus was normal. The entire examined stomach was normal. The duodenal bulb and 2nd part of the duodenum were normal. Colonoscopy 07/01/17 - A long segment of severely edematous, congested, friable mucosa starting at 70 cm proximal to the anus. Unable to advance scope beyond 75cm. Findings concerning for ischemic colitis vs malignancy. Biopsied. Tattooed. - Sigmoid diverticulosis. - Patient will need a repeat colonoscopy at some point to evaluate the remainder of the colon if this is ischemic colitis. If this is a malignancy, will need surgical evaluation. CEA is negative CT abdomen 5 mm subpleural solid nodule of the lateral basal segment right lower lobe seen on image 47 of series 3. Mild dependent bibasilar atelectasis. 2 mm nodule of the right lower lobe seen on image 104 series 3. No pneumatosis or pneumoperitoneum identified. The imaged inferior cardiac chambers are mildly enlarged with coronary arterial disease. Mitral annular calcifications. Liver, spleen, pancreas, gallbladder and adrenal glands are within normal limits. Mild nonspecific perinephric stranding is present bilaterally. No renal calculi, hydronephrosis or focal renal mass lesions identified. Ureters and urinary bladder are unremarkable. Brachytherapy seeds noted within the enlarged prostate. The pelvic structures are not well-seen secondary to streak artifact from bilateral hip arthroplasties. Moderate atherosclerosis of the aorta without aneurysm. There is prominent atherosclerosis involving the super mesenteric artery without definite thrombus identified. Mildly enlarged periportal lymph node measures 2.4 x 1.0 cm on image 148 series 3 with additional mildly enlarged periportal lymph node measuring 3.3 x 1.3. Small sliding-type hiatal hernia. No bowel obstruction. Mild collecting diverticulosis without diverticulitis. There is severe wall thickening involving a 13 cm long segment of the transverse colon and hepatic flexure with eccentric wall thickening greatest involving the mesenteric side. 5 mm lymph node is seen adjacent to the wall thickening, image 226 series 3. Mild associated surrounding inflammatory stranding. Soft tissues are unremarkable. Bones appear mildly demineralized. Multilevel degenerative changes of the spine. IMPRESSION: 1. Severe wall thickening involves a 13 cm long segment of the transverse colon and hepatic flexure with the mesenteric side of the bowel within this region demonstrating the greatest degree of wall thickening. Moderate associated inflammatory stranding with adjacent vascular congestion. Differential considerations would include an underlying mucosal mass lesion or focal colitis from infectious, inflammatory or ischemic etiology. Adjacent 5 mm lymph node may be reactive or metastatic. Correlate with colonoscopy findings. 2. Moderate atherosclerosis of the aorta and origin of the superior mesenteric artery without definite vessel occlusion identified. 3. Mild colonic diverticulosis without diverticulitis. 4. Brachytherapy seeds of the prostate. 5. Mild periportal adenopathy. 6. Additional findings as above. Discharge to Home Follow up with 07/06/2017 1:00 PM Ena Lau MD [facility] Await Pathology results from Colonoscopy Instructions: Return to emergency room if seeing acute blood loss from rectum, severe abdominal pain, high fever, severe dizziness, loss of of consciousness Current Hospital Diet Patient's current hospital diet: Regular Diet Discharge Diet Recommended Diet: Regular Diet Procedures Procedures Performed: COLONOSCOPY, BX, TATOO Pending Studies Studies pending at discharge: no List of pending studies: awaiting colonoscopy results Laboratory Results 07/01/17 05:10 Red Blood Count 3.97, Mean Corpuscular Volume 71.3, Mean Corpuscular Hemoglobin 21.7, Mean Corpuscular Hemoglobin Concent 30.4, Mean Platelet Volume 8.8, Neutrophils (%) (Auto) 63.9, Lymphocytes (%) (Auto) 24.0, Monocytes (%) (Auto) 9.7, Eosinophils (%) (Auto) 1.7, Basophils (%) (Auto) 0.3, Neutrophils # (Auto) 4.90, Lymphocytes # (Auto) 1.84, Monocytes # (Auto) 0.74, Eosinophils # (Auto) 0.13, Basophils # (Auto) 0.02 07/01/17 05:10 Test 06/29/17 20:30 06/30/17 04:18 07/01/17 05:10 07/01/17 13:55 Microcytosis PRESENT Prothrombin Time 10.7 SECONDS (9.0-12.0) Prothromb Time International Ratio 1.0 (0.9-1.1) Activated Partial Thromboplast Time 25.0 SECONDS (21.0-31.0) Partial Thromboplastin Ratio 1.0 Direct Bilirubin 0.1 mg/dl (0-0.2) Magnesium Level 1.9 mg/dl (1.8-2.4) White Blood Count 7.66 K/uL (4.8-10.8) Red Blood Count 3.97 M/uL (4.7-6.1) Hemoglobin 8.6 g/dL (14.0-18.0) Hematocrit 28.3 % (42-52) Mean Corpuscular Volume 71.3 fL (80-100) Mean Corpuscular Hemoglobin 21.7 pg (25-34) Mean Corpuscular Hemoglobin Concent 30.4 g/dl (32-36) Platelet Count 272 K/uL (130-400) Mean Platelet Volume 8.8 fL (7.4-10.4) Neutrophils (%) (Auto) 63.9 % Lymphocytes (%) (Auto) 24.0 % Monocytes (%) (Auto) 9.7 % Eosinophils (%) (Auto) 1.7 % Basophils (%) (Auto) 0.3 % Neutrophils # (Auto) 4.90 K/uL (1.4-6.5) Lymphocytes # (Auto) 1.84 K/uL (1.2-3.4) Monocytes # (Auto) 0.74 K/uL (0.11-0.59) Eosinophils # (Auto) 0.13 K/uL (0-0.5) Basophils # (Auto) 0.02 K/uL (0-0.2) RDW Standard Deviation 49.9 fL (36.4-46.3) RDW Coefficient of Variation 19.0 % (11.5-14.5) Immature Granulocyte % (Auto) 0.4 % Immature Granulocyte # (Auto) 0.03 K/uL (0.00-0.02) Anisocytosis PRESENT Tear Drop Cells OCCASIONAL Ovalocytes 1+ Acanthocytes 1+ Schistocytes OCCASIONAL Anion Gap 6.0 mmol/L (3-11) Est Creatinine Clear Calc Drug Dose 76.0 ml/min Estimated GFR () 85.0 Estimated GFR (Non- 73.3 BUN/Creatinine Ratio 16.9 (10-20) Calcium Level 8.1 mg/dl (8.5-10.1) Total Bilirubin 0.5 mg/dl (0.2-1) Aspartate Amino Transf (AST/SGOT) 16 U/L (15-37) Alanine Aminotransferase (ALT/SGPT) 18 U/L (12-78) Alkaline Phosphatase 63 U/L (45-117) Total Protein 6.5 gm/dl (6.4-8.2) Albumin 2.8 gm/dl (3.4-5.0) Globulin 3.7 gm/dl (2.5-4.0) Albumin/Globulin Ratio 0.8 (0.9-2) Carcinoembryonic Antigen 0.9 ng/ml (0-2.5) Test 07/01/17 16:50 Bedside Glucose 126 mg/dl (70-99) Medical Emergencies . Who to Call and When: Medical Emergencies: If at any time you feel your situation is an emergency, please call 911 immediately. . Non-Emergent Contact Non-Emergency issues call your: Primary Care Provider . . "Provider Documentation" section prepared by Ronni Doyle. . Foreign Collection Clerk Recommendations Foreign Collection Clerk Recommendations: Full consult dictated. Addendum: spoke with , Carlene, by phone. Explained that I would place the patient at a moderate risk level for adverse ame-procedural cardiovascular event with risk of approximately <5%. She was further counseled that no further cardiac testing or intervention would further lower that risk. She states that she understands, she is accepting of that risk and wishes to proceed with EGD and colonoscopy. No need to delay from cardiac standpoint. VTE Core Measure Inpt VTE Proph given/why not?: SCD's
[2017-07-01 18:37] VITALS: BP 155/83; PULSE 78; TEMP 36.4; O2SAT 97
--- NOTE | 2017-07-01 18:38 | Discharge Summary ---
Discharge Summary Date of Service Jul 01, 2017. Discharge Summary Admission Date: Jun 29, 2017 at 22:02 Discharge Date: Jul 01, 2017 Discharge Disposition: Home Principal Diagnosis: GI bleed, anemia, colon thickening: colon mass vs colitis Pending Studies/Follow-Up: pathology results from colonoscopy Medication Reconciliation Continued Medications: Aspirin (Aspirin Ec) 81 Mg Tab 81 MG PO DAILY Atorvastatin (Lipitor) 10 Mg Tab 10 MG PO HS, TAB Fish Oil ([place]-3) 1 Ea Cap 1000 MG PO QAM, CAP Lisinopril (Lisinopril) 10 Mg Tab 10 MG PO QAM, #90 Meclizine Hcl (Meclizine Hcl) Unknown Strength Tab 1 TAB PO TID Metformin Hcl (Glucophage) 500 Mg Tab 500 MG PO BID, TAB Metoprolol Succinate (Metoprolol Succinate ER) 25 Mg Tabcr 25 MG PO DAILY Multivitamins/Minerals (Mvi With Minerals) Tab 1 TAB PO QAM, TAB Admission Information HPI (per Admitting provider): Patient is an 82 yr male with PMH of HTN, HLP, DM II, Prostate cancer s/ p radiation, mood disorder, chronic dizziness and other problems who was recently discharged from [facility] after being treated for Dizziness and PRBCs transfusion for anemia/GI bleeding presents with history of bright red per rectum which he noticed to day. Patient is a poor historian and most of the history is obtained from Patient's spouse and old records. Patient reports noticing bright red blood in his underwear today and also some dark colored stools and so came to ED for further evaluation. Also reports generalized weakness and has loose BM today. Reports his dizziness is better when compared to prior admission. He was scheduled for EGD/Colonoscopy on Jul 17 by . In ED patient had dark colored stool and is guaiac positive but no active bleeding. He is on Aspirin at home, denies any NSAIDs or Antibiotic use/Blood thinners. Also denies any chest pain, SOB, fever, chills, abdominal pain, nausea, vomiting, headache, cough, hematuria, dysuria. Physical Exam (per Admitting): General Appearance: WD/WN, no apparent distress Head: normocephalic, atraumatic Eyes: normal inspection, PERRL, EOMI, sclerae normal ENT: normal ENT inspection, + pertinent finding (hearing loss) Neck: supple, trachea midline Respiratory/Chest: chest non-tender, lungs clear, normal breath sounds, no respiratory distress, no accessory muscle use Cardiovascular: regular rate, rhythm, no murmur, + pertinent finding (1+ b/ l edema) Abdomen/GI: normal bowel sounds, non tender, soft, + pertinent finding ( Obese) Back: normal inspection Extremities/Musculoskelatal: normal inspection, + pedal edema 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 The entire examined stomach was normal. The duodenal bulb and 2nd part of the duodenum were normal. Colonoscopy 07/01/17 - A long segment of severely edematous, congested, friable mucosa starting at 70 cm proximal to the anus. Unable to advance scope beyond 75cm. Findings concerning for ischemic colitis vs malignancy. Biopsied. Tattooed. - Sigmoid diverticulosis. - Patient will need a repeat colonoscopy at some point to evaluate the remainder of the colon if this is ischemic colitis. If this is a malignancy, will need surgical evaluation. CEA is negative CT abdomen 5 mm subpleural solid nodule of the lateral basal segment right lower lobe seen on image 47 of series 3. Mild dependent bibasilar atelectasis. 2 mm nodule of the right lower lobe seen on image 104 series 3. No pneumatosis or pneumoperitoneum identified. The imaged inferior cardiac chambers are mildly enlarged with coronary arterial disease. Mitral annular calcifications. Liver, spleen, pancreas, gallbladder and adrenal glands are within normal limits. Mild nonspecific perinephric stranding is present bilaterally. No renal calculi, hydronephrosis or focal renal mass lesions identified. Ureters and urinary bladder are unremarkable. Brachytherapy seeds noted within the enlarged prostate. The pelvic structures are not well-seen secondary to streak artifact from bilateral hip arthroplasties. Moderate atherosclerosis of the aorta without aneurysm. There is prominent atherosclerosis involving the super mesenteric artery without definite thrombus identified. Mildly enlarged periportal lymph node measures 2.4 x 1.0 cm on image 148 series 3 with additional mildly enlarged periportal lymph node measuring 3.3 x 1.3. Small sliding-type hiatal hernia. No bowel obstruction. Mild collecting diverticulosis without diverticulitis. There is severe wall thickening involving a 13 cm long segment of the transverse colon and hepatic flexure with eccentric wall thickening greatest involving the mesenteric side. 5 mm lymph node is seen adjacent to the wall thickening, image 226 series 3. Mild associated surrounding inflammatory stranding. Soft tissues are unremarkable. Bones appear mildly demineralized. Multilevel degenerative changes of the spine. IMPRESSION: 1. Severe wall thickening involves a 13 cm long segment of the transverse colon and hepatic flexure with the mesenteric side of the bowel within this region demonstrating the greatest degree of wall thickening. Moderate associated inflammatory stranding with adjacent vascular congestion. Differential considerations would include an underlying mucosal mass lesion or focal colitis from infectious, inflammatory or ischemic etiology. Adjacent 5 mm lymph node may be reactive or metastatic. Correlate with colonoscopy findings. 2. Moderate atherosclerosis of the aorta and origin of the superior mesenteric artery without definite vessel occlusion identified. 3. Mild colonic diverticulosis without diverticulitis. 4. Brachytherapy seeds of the prostate. 5. Mild periportal adenopathy. 6. Additional findings as above. Discharge to Home Follow up with 07/06/2017 1:00 PM Ena Lau MD [facility] Await Pathology results from Colonoscopy Instructions: Return to emergency room if seeing acute blood loss from rectum, severe abdominal pain, high fever, severe dizziness, loss of of consciousness Total time spent on discharge = 60 minutes This includes examination of the patient, discharge planning, medication reconciliation, and communication with other providers. Discharge Instructions see above
--- NOTE | 2017-07-01 18:54 | NUR ---
A: Patient discharged. Patient refused to go over discharge instructions. Patient discharged home with .
[2017-07-08] MEDS ORDERED: MECL1TAB42 PO (14:07)
--- NOTE | 2017-07-19 12:39 | EDITING REQUIRED CODING QUERY ---
PATHOLOGY To promote full compliance with coding requirements relating to patient care, physician participation is requested in all cases of toaster element repairer uncertainty. Please assist us with the question(s) below: Please review the Pathology report and please document any relevant diagnosis(es) below: Diagnosis(es): The patient has a poorly differentiated carcinoma that appears to be an adenocarcinoma Thank you for your time, CRISTINA Alatorre, MED CARE MANAGER
[2017-08-03] MEDS ORDERED: OXYC-90 PO (13:24)
== END 2017-07-01 18:45 | disposition home or self-care (01) | DRG 374 ==
LOC: C.EDB 20:08 → C.MED 22:02 → CANRESERV 22:14 → ENRESERV 22:14
PROVIDERS: ADMIT Internal Medicine; ATTEND Hospitalist
PROC: 0DJ08ZZ Inspection of Upper Intestinal Tract, Via Natural or Artificial Opening Endoscopic (ICD-10-PCS; principal; 2017-06-30 11:11)
PROC: 0DBE8ZX Excision of Large Intestine, Via Natural or Artificial Opening Endoscopic, Diagnostic (ICD-10-PCS; 2017-07-01 11:18)
DX: C18.9 Malignant neoplasm of colon, unspecified (principal); K57.31 Diverticulosis of large intestine without perforation or abscess with bleeding; D62 Acute posthemorrhagic anemia; D50.9 Iron deficiency anemia, unspecified; I45.10 Unspecified right bundle-branch block; I49.1 Atrial premature depolarization; I11.9 Hypertensive heart disease without heart failure; I25.10 Atherosclerotic heart disease of native coronary artery without angina pectoris; E78.5 Hyperlipidemia, unspecified; E11.9 Type 2 diabetes mellitus without complications; R42 Dizziness and giddiness; F43.21 Adjustment disorder with depressed mood; F03.90 Unspecified dementia, unspecified severity, without behavioral disturbance, psychotic disturbance, mood disturbance, and anxiety; E66.9 Obesity, unspecified; Z68.31 Body mass index [BMI] 31.0-31.9, adult; Z96.643 Presence of artificial hip joint, bilateral; Z96.612 Presence of left artificial shoulder joint; Z96.611 Presence of right artificial shoulder joint; Z86.718 Personal history of other venous thrombosis and embolism; Z87.891 Personal history of nicotine dependence; Z79.82 Long term (current) use of aspirin; Z79.899 Other long term (current) drug therapy

== ENCOUNTER → 2017-07-08 | Outpatient (CLI) | payer OTHER ==
[~2017-07-08] MED LIST changes: +ASPI81TA28 PO; +CITA20TA9 PO; +ENOX40IN SQ; +LPT20 PO; +METF-384 PO; +ONDA8TAB62 SL; +OXYC-90 PO
[2017-07-08 13:52] VITALS: BP 125/75; PULSE 96; TEMP 36.5; O2SAT 99
--- NOTE | 2017-07-08 16:37 | Radiation Oncology Follow-Up ---
Radiation Oncology Follow-Up Date of Visit Jul 08, 2017. Radiation Completion Date 08/18/14 Diagnosis (1) Colon cancer Status: Acute Onset Date: 07/01/2017 Location: transverse colon Permanent Comment: Rectal bleeding and anemia Colonoscopy revealing a lesion at 70 cm biopsy positive for adenocarcinoma Colorectal surgical consultation scheduled Last Edited By: Elizabeth Cervantes on Jul 08, 2017 16:24 (2) Prostate carcinoma Status: Resolved Onset Date: 03/25/2012 Location: left lobe of the prostate Histology Subtype: adenocarcinoma Stage: ll Permanent Comment: Rising PSA Status post ultrasound-guided biopsy 03/25/2012 revealing adenocarcinoma Cris 3+3 pretreatment PSA 4.95 watchful waiting increase in PSA revealed a biopsy 04/14/2014 Wallace 3+3 increased number of biopsies status post completion of radiation therapy utilizing IMRT/IGRT completed 2014 received 7800 cGy Last Edited By: Elizabeth Cervantes on Feb 27, 2015 16:25 History of Present Illness Mr. Noyola is a 82-year-old male who has been followed with serial prostate- specific antigens. His most recent prostate-specific antigens included a 6.16 in January 2010. This prompted a biopsy ultimately performed on March 252011. A total of 20 biopsies were taken. Of these biopsies 1 was positive for an adenocarcinoma Cris grade of 3+3 involving 10% of the core length with no perineural or lymphovascular invasion seen. Case: [id number]. At that time the patient was 77 years old and clearly had a very low risk cancer. The decision was made to proceed with active surveillance. As part of that process repeat prostate-specific antigen was taken on 05/16/2013. This showed a decrease in his prostate-specific antigen to 4.95. On 11/21/2013 the prostate-specific antigen once again increased to 6.32. Because of this increase in prostatespecific antigen a second biopsy was performed on 04/14/2014. Again a total of 20 biopsies were taken this time four were positive. 3 of 3 biopsies from the left apex were positive for an adenocarcinoma Cris grade of 3+3 involving less than 5%, 5% and 10% respectively. One biopsy from the left anterior was positive for an adenocarcinoma Wallace grade of 3+3 involving 10% of the core sample. The remaining 16 biopsies were negative. There was no perineural invasion seen. Case: [id number]. The patient underwent a pelvic CT scan in 2009. We evaluated his prostate volume based on that scan at 70 g. At the time of his biopsy in 2011 his prostate volume was felt to be approximately 90 g. In 2013 his prostate volume was felt to be approximately 130 g. He underwent a bone scan on 2013 which showed degenerative changes but no changes consistent with metastatic disease. The patient presented today to discuss the role of radiation as treatment for his prostate cancer. Patient made a decision to undergo treatment with IMRT IGRT. That was completed July 2014 received 7800 cGy Interim History He has been doing well from urinary standpoint. His AUA score was 3.5. He completed expanded prostate cancer index composite for clinical practice and gave a score of one of 12 in urinary incontinence symptoms. He gave a score of 0 of 12 and urinary irritation symptoms. He gave a score of 0 of 12 and bowel symptoms. He gave a score of 12 of 12 and sexual symptoms. He gave a score of 3 of 12 and hormonal vitality symptoms. His total was 16 of 60. He had a recheck PSA July 06 that was 0.47. The PSA prior was 03/04/2016 and that was 0.386. He developed dizziness and presented to the emergency room on 06/18/2017. He had fallen on 4 separate occasions. Dizziness was made worse with movement. He was found to have a hemoglobin at 8.7. With hydration the spelled 8.0. He was transfused and felt improved. After further investigation was found that he was having rectal bleeding. He was referred to gastroenterology and had a colonoscopy. Colonoscopy was performed 07/01/2017. The mass was found at 70 cm. This was biopsied. 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 Specimen [id number]. He has steadily recuperated. He was discharged home. He has an appointment scheduled to see the colorectal surgeon at [facility]. Allergies Coded Allergies: Oxycodone (Verified Adverse Reaction, Intermediate, MAKES PT HALLUCINATES , 06/29/17) Hydrocodone (Verified Adverse Reaction, Unknown, MAKES PT HALLUCINATE, 06/05) Home Medications Scheduled Aspirin (Aspirin Ec), 81 MG PO DAILY Atorvastatin (Lipitor), 10 MG PO HS Fish Oil ([place]-3), 1,000 MG PO QAM Lisinopril (Lisinopril), 10 MG PO QAM Meclizine Hcl (Meclizine Hcl), 1 TAB PO BID Metformin Hcl (Glucophage), 500 MG PO BID Metoprolol Succinate (Metoprolol Succinate ER), 12.5 MG PO DAILY Multivitamins/Minerals (Mvi With Minerals), 1 TAB PO QAM Review of Systems Gastrointestinal: Symptoms: WNL, Rectal Bleeding GI Comments: 2 recent episodes of retacl bleeding - now better;No fiber supplements Oral: Symptoms: No Problems Respiratory: Symptoms: SOB With Exertion Other Respiratory: During hospitalization, but now is improved; Urinary: Symptoms: WNL Comments: 1-2 voids/night; Skin: Symptoms: No Problems Physical Exam Vital Signs Date Time Temp Pulse Resp B/P (MAP) Pulse Ox O2 Delivery O2 Flow Rate FiO2 07/08/17 13:52 36.5 96 16 125/75 99 Fatigue: Mild General Appearance: no apparent distress Eyes: normal inspection, EOMI ENT: normal ENT inspection, hearing grossly normal Neck: no adenopathy, thyroid normal Respiratory/Chest: lungs clear, no respiratory distress, no accessory muscle use Cardiovascular: regular rate, rhythm, no gallop, no murmur Abdomen: non tender, soft, no organomegaly Extremities: no pedal edema Neurologic/Psychiatric: no motor/sensory deficits, alert, normal mood/affect Skin: warm/dry, + pallor Pain Management Patient Reports Pain: No Pain Management Plan He denies pain therefore requires no pain management. Pathology Pathology Results: were reviewed Pathology Comments Discussed in the interim history Imaging Imaging Studies: were reviewed Imaging Comments CT of the abdomen and pelvis revealed thickening of the hepatic flexure/ transverse colon. Assessment & Plan Plan: We discussed his PSAs. There has been a slight increase. I've asked him to get a PSA again in 6 months. He has these done at his primary care physician 's office. A reminder was given to have this performed in December. In regards to the new diagnosis of colon cancer we discussed that this type of cancer usually does not require radiation therapy. It will depend on his final pathology findings. He will likely need to see a medical oncologist once again depending on the outcome of the pathology. An appointment was given for 1 year. He'll return if recommended by the surgeon or medical oncologist. He may call our office if he has any questions or concerns. Total Time In Follow-Up I spent 25 minutes speaking to the patient and performing examination. I spent 15 minutes reviewing information and completing this note. Copy To Ena Lau M.D. (MEDICAL); Orlando Schulte M.D.; Leonel De Paz MD Problem Qualifiers (1) Colon cancer: Colon location: transverse Qualified Codes: C18.4 - Malignant neoplasm of transverse colon
== END | disposition home or self-care (01) ==
LOC: C.ONC 13:35
PROVIDERS: ATTEND Physician Assistant Medical
DX: Z08 Encounter for follow-up examination after completed treatment for malignant neoplasm (principal); Z92.3 Personal history of irradiation; Z85.038 Personal history of other malignant neoplasm of large intestine; Z85.46 Personal history of malignant neoplasm of prostate

== ENCOUNTER 2017-07-31 15:20 | Emergency (ER) | payer OTHER ==
[~2017-07-31] VITALS: Ht 185.4 cm; Wt 107.0 kg
[~2017-07-31 15:20] MED LIST changes: -CITA20TA9 PO; -ENOX40IN SQ; -LPT20 PO; -METF-384 PO; -ONDA8TAB62 SL; -OXYC-90 PO
[2017-07-31 15:29] VITALS: TEMP 36.6; Ht 185.4 cm; Wt 107.0 kg
[2017-07-31] MEDS: ONDANSETRON INJ 2 MG/ML 2 ML VIAL IV STA ×2 (15:43→17:36)
[2017-07-31] MEDS ORDERED: OPTIRAY 320 IV PRN (16:00)
--- NOTE | 2017-07-31 16:03 | DIAGNOSTIC IMAGING REPORT ---
CHEST ONE VIEW PORTABLE HISTORY: Generalized abdominal pain. COMPARISON: Chest 06/18/2017. FINDINGS: No pleural effusions. No pneumothorax. No focal lung consolidations to suggest pneumonia. No evidence for pulmonary edema. The heart remains mildly enlarged. Low lung volumes. 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 IMPRESSION: No significant change compared to the prior study. No acute process. Electronically signed by: Axel Bautista M.D. 07/31/2017 4:02 PM Dictated Date/Time: 07/31/2017 4:01 PM
[2017-07-31 16:20] LABS: BASO % 0.1 %; BASO ABS # 0.01 K/uL (0-0.2); EOS % 2.3 %; EOS ABS # 0.34 K/uL (0-0.5); HEMATOCRIT 31.2 % (42-52); HEMOGLOBIN 9.2 g/dL (14.0-18.0); IG# 0.07 K/uL (0.00-0.02); LYMPH % 8.8 %; LYMPH ABS # 1.27 K/uL (1.2-3.4); MEAN CELL VOLUME 72.1 fL (80-100); MEAN CORPUSCULAR HEMOGLOBIN 21.2 pg (25-34); MEAN CORPUSCULAR HGB CONC 29.5 g/dl (32-36); MEAN PLATELET VOLUME 9.3 fL (7.4-10.4); MONO % 5.9 %; MONO ABS # 0.85 K/uL (0.11-0.59); NEUT % 82.4 %; NEUT ABS # 11.94 K/uL (1.4-6.5); PLATELET COUNT 407 K/uL (130-400); RED CELL DISTRIBUTION WIDTH CV 22.2 % (11.5-14.5); RED CELL DISTRIBUTION WIDTH SD 56.6 fL (36.4-46.3); WHITE BLOOD COUNT 14.48 K/uL (4.8-10.8)
[2017-07-31] MEDS ORDERED: CITA20TA9 PO (16:22)
[2017-07-31] MEDS ORDERED: METF-384 PO (16:23)
[2017-07-31 16:32] LABS: PTT PATIENT 24.3 SECONDS (21.0-31.0)
--- NOTE | 2017-07-31 16:40 | EMERGENCY ROOM VISIT NOTE ---
History Report prepared by Wally: Claudia Jacobo Under the Supervision of: Dr. Orlando Oconnor D.O. 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 The patient had a recent mechanical fall two days ago. Per , the patient was walking towards the porch when he tripped and fell face forward onto a brick ground. He hit his head and abdomen on the ground. He notes abdominal pain. He notes nausea and diarrhea. He denies taking any pain medication. He notes that movement worsens his pain. He currently rates his pain a 10/10 in severity. He denies any LOC, melena, or hematochezia. He has colon cancer. He recently had a colectomy July 22, 2017. He is not currently taking blood thinners. He is currently taking Lisinopril. 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 A total of 10 systems reviewed and were otherwise negative. Past Medical & Surgical Medical Problems: (1) DM (diabetes mellitus) (2) Hypercholesteremia (3) Prostate carcinoma Surgical Problems: (1) H/O colectomy (2) S/P hip replacement Family History Omitted secondary to age Social History Smoking Status: Never Smoker Smokeless Tobacco Use: No Alcohol Use: occasionally Drug Use: none Marital Status: Housing Status: lives with family Occupation Status: retired Current/Historical Medications Scheduled Aspirin (Aspirin Ec), 81 MG PO DAILY Atorvastatin (Lipitor), 10 MG PO HS Citalopram Hydrobromide (Celexa), 20 MG PO DAILY Fish Oil ([place]-3), 1,000 MG PO QAM Lisinopril (Lisinopril), 10 MG PO QAM Meclizine Hcl (Meclizine Hcl), 1 TAB PO BID Metformin Hcl (Glucophage), 1,000 MG PO BID Metoprolol Succinate (Metoprolol Succinate ER), 12.5 MG PO DAILY Multivitamins/Minerals (Mvi With Minerals), 1 TAB PO QAM Allergies Coded Allergies: Oxycodone (Verified Adverse Reaction, Intermediate, MAKES PT HALLUCINATES , 07/31/17) Hydrocodone (Verified Adverse Reaction, Unknown, MAKES PT HALLUCINATE, 07/06) Physical Exam Vital Signs Date Time Temp Pulse Resp B/P (MAP) Pulse Ox O2 Delivery O2 Flow Rate FiO2 07/31/17 18:57 92 20 145/82 95 Room Air 07/31/17 16:52 107 18 173/73 98 Room Air 07/31/17 15:29 36.6 99 16 135/73 97 Room Air Physical Exam CONSTITUTIONAL/VITAL SIGNS: Reviewed / noted above. GENERAL: Non-toxic in appearance. INTEGUMENTARY: Warm, dry, and [place]. HEAD: Normocephalic. Healing abrasion in glabella area. EYES: without scleral icterus or trauma. ENT/OROPHARYNX: clear and moist. LYMPHADENOPATHY/NECK: Is supple without lymphadenopathy or meningismus. RESPIRATORY: Lungs clear and equal. CARDIOVASCULAR: Regular rate and rhythm. GI/ABDOMEN: Soft and tenderness to palpation of RUQ. Midline surgical scar healing well without redness or tenderness. No organomegaly or pulsatile mass. No rebound or guarding. Normal bowel sounds. EXTREMITIES: Warm and well perfused. BACK: No CVA tenderness. NEUROLOGICAL: Intact without focal deficits. PSYCHIATRIC: normal affect. MUSCULOSKELETAL: Normally developed with good muscle tone. Medical Decision & Procedures ER Provider Diagnostic Interpretation: Radiology results as stated below per my review and radiologist interpretation: CHEST ONE VIEW PORTABLE HISTORY: Generalized abdominal pain. COMPARISON: Chest 06/18/2017. FINDINGS: No pleural effusions. No pneumothorax. No focal lung consolidations to suggest pneumonia. No evidence for pulmonary edema. The heart remains mildly enlarged. Low lung volumes. 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 IMPRESSION: No significant change compared to the prior study. No acute process. Electronically signed by: Axel Bautista M.D. 07/31/2017 4:02 PM Dictated Date/Time: 07/31/2017 4:01 PM GALLBLADDER-ABD LIMITED CLINICAL HISTORY: ABDOMINAL PAIN/GI pain. Nausea. TECHNIQUE: Ultrasound COMPARISON STUDY: None FINDINGS: Normal gallbladder. Colon wall 3 mm. Common bile duct 3 mm. There is uniform. Pancreas and right kidney are unremarkable. No evidence for hydronephrosis. IMPRESSION: No acute process. The above report was generated using voice recognition software. It may contain grammatical, syntax or spelling errors. Electronically signed by: Drew Davis M.D. 07/31/2017 4:51 PM Dictated Date/Time: 07/31/2017 4:49 PM ABDOMEN AND PELVIS CT WITH IV AND ORAL CONTRAST CT DOSE: 1479.47 mGy.cm HISTORY: Generalized abdominal pain. Fall. TECHNIQUE: Multiaxial CT images of the abdomen and pelvis were performed following the use of intravenous and oral contrast. A dose lowering technique was utilized adhering to the principles of ALARA. COMPARISON STUDY: Abdomen and pelvis CT 07/01/2017. FINDINGS: Bibasilar densities favor subsegmental atelectasis. 5 mm subpleural nodule within the right lower lobe is again noted. Bilateral total hip arthroplasties. No suspicious lytic or blastic osseous lesions. No hepatic or splenic masses. Mild thickening of the left adrenal gland, unchanged. The pancreas, right adrenal gland, and kidneys are unremarkable. Trace perihepatic fluid which may be postoperative. Normal gallbladder. Stable prominent periportal lymph nodes. Moderate calcified plaque within the normal caliber abdominal aorta. The deep pelvic structures including the bladder primarily obscured by the metallic artifact from the hip prostheses. Small amount of fluid within the pelvis. Prostate brachytherapy seeds are again noted. Colonic diverticulosis. Interval right hemicolectomy. There is also anastomosis within a mid small bowel loop. No dilated loops of bowel to suggest an obstruction. Nodular fat stranding and edema within the right side of the abdomen and omentum. This favors recent postoperative change. Small focus of gas within the anterior abdomen deep to the midline incision on image 198. This also favors postoperative change. No definite abscess identified at this time. Mild thickening within a short segment of a single small bowel loop seen along the right side of the abdomen on images 242 through 269. IMPRESSION: 1. Interval right hemicolectomy. Mild nodular fat stranding/edema within the right side of the abdomen, a small amount of ascites, and a small focus of intra-abdominal gas seen deep to the incision site. This which favors postoperative changes at this time. No definite abscess identified. One to [address] follow-up is recommended to ensure resolution of these findings. 2. There is a short segment of thickening involving a single small bowel loop along the right side the abdomen. This is consistent with a nonspecific enteritis and could also be due to the recent postoperative change. Electronically signed by: Axel Bautista M.D. 07/31/2017 6:56 PM Dictated Date/Time: 07/31/2017 6:[address] CT DOSE: 623.48 mGy.cm HISTORY: fall 2 days ago TECHNIQUE: Multiaxial CT images of the head were performed without the use of intravenous contrast. Automated exposure control was utilized for this study. A dose lowering technique was utilized adhering to the principles of ALARA. Comparison: Head CT 06/18/2017. Findings: The paranasal sinuses and mastoid air cells are clear. The calvarium and skull base are intact. There is no mass, hematoma, midline shift, acute infarct. White matter hypodensity is nonspecific but suggestive of microvascular ischemic change. The ventricles and sulci demonstrate mild age-related involutional changes. Impression: No significant change compared to the prior study. No acute intracranial abnormality. Electronically signed by: Axel Bautista M.D. 07/31/2017 6:58 PM Dictated Date/Time: 07/31/2017 6:56 PM Laboratory Results 07/31/17 16:08 Red Blood Count 4.33, Mean Corpuscular Volume 72.1, Mean Corpuscular Hemoglobin 21.2, Mean Corpuscular Hemoglobin Concent 29.5, Mean Platelet Volume 9.3, Neutrophils (%) (Auto) 82.4, Lymphocytes (%) (Auto) 8.8, Monocytes (%) (Auto) 5.9, Eosinophils (%) (Auto) 2.3, Basophils (%) (Auto) 0.1, Neutrophils # (Auto) 11.94, Lymphocytes # (Auto) 1.27, Monocytes # (Auto) 0.85, Eosinophils # (Auto) 0.34, Basophils # (Auto) 0.01 07/31/17 16:08 Test 07/31/17 16:08 07/31/17 16:49 White Blood Count 14.48 K/uL (4.8-10.8) Red Blood Count 4.33 M/uL (4.7-6.1) Hemoglobin 9.2 g/dL (14.0-18.0) Hematocrit 31.2 % (42-52) Mean Corpuscular Volume 72.1 fL (80-100) Mean Corpuscular Hemoglobin 21.2 pg (25-34) Mean Corpuscular Hemoglobin Concent 29.5 g/dl (32-36) Platelet Count 407 K/uL (130-400) Mean Platelet Volume 9.3 fL (7.4-10.4) Neutrophils (%) (Auto) 82.4 % Lymphocytes (%) (Auto) 8.8 % Monocytes (%) (Auto) 5.9 % Eosinophils (%) (Auto) 2.3 % Basophils (%) (Auto) 0.1 % Neutrophils # (Auto) 11.94 K/uL (1.4-6.5) Lymphocytes # (Auto) 1.27 K/uL (1.2-3.4) Monocytes # (Auto) 0.85 K/uL (0.11-0.59) Eosinophils # (Auto) 0.34 K/uL (0-0.5) Basophils # (Auto) 0.01 K/uL (0-0.2) RDW Standard Deviation 56.6 fL (36.4-46.3) RDW Coefficient of Variation 22.2 % (11.5-14.5) Immature Granulocyte % (Auto) 0.5 % Immature Granulocyte # (Auto) 0.07 K/uL (0.00-0.02) Hypochromasia PRESENT Anisocytosis PRESENT Microcytosis PRESENT Ovalocytes 1+ Acanthocytes 1+ Prothrombin Time 10.0 SECONDS (9.0-12.0) Prothromb Time International Ratio 1.0 (0.9-1.1) Activated Partial Thromboplast Time 24.3 SECONDS (21.0-31.0) Partial Thromboplastin Ratio 0.9 Anion Gap 7.0 mmol/L (3-11) Est Creatinine Clear Calc Drug Dose 79.4 ml/min Estimated GFR () 89.5 Estimated GFR (Non- 77.2 BUN/Creatinine Ratio 32.4 (10-20) Calcium Level 9.6 mg/dl (8.5-10.1) Total Bilirubin 0.5 mg/dl (0.2-1) Direct Bilirubin 0.1 mg/dl (0-0.2) Aspartate Amino Transf (AST/SGOT) 26 U/L (15-37) Alanine Aminotransferase (ALT/SGPT) 34 U/L (12-78) Alkaline Phosphatase 80 U/L (45-117) Total Protein 7.6 gm/dl (6.4-8.2) Albumin 3.5 gm/dl (3.4-5.0) Lipase 322 U/L (73-393) Urine Color DK YELLOW Urine Appearance CLEAR (CLEAR) Urine pH 6.0 (4.5-7.5) Urine Specific [place] 1.025 (1.000-1.030) Urine Protein NEG (NEG) Urine Glucose (UA) NEG (NEG) Urine Ketones TRACE (NEG) Urine Occult Blood NEG (NEG) Urine Nitrite NEG (NEG) Urine Bilirubin NEG (NEG) Urine Urobilinogen NEG (NEG) Urine Leukocyte Esterase NEG (NEG) Urine WBC (Auto) 1-5 /hpf (0-5) Urine RBC (Auto) 0-4 /hpf (0-4) Urine Hyaline Casts (Auto) 1-5 /lpf (0-5) Urine Epithelial Cells (Auto) 5-10 /lpf (0-5) Urine Bacteria (Auto) NEG (NEG) Laboratory results as stated above per my review. Medications Administered Medications (Trade) Dose Ordered Sig/Peggy Route Start Time Stop Time Status Last Admin Dose Admin Ondansetron HCl (Zofran Inj) 4 mg NOW STAT IV 07/31/17 15:43 07/31/17 15:45 DC 07/31/17 17:36 4 MG Morphine Sulfate (MoRPHine SULFATE INJ) 4 mg NOW STAT IV 07/31/17 17:04 07/31/17 17:07 DC 07/31/17 17:36 4 MG ECG Indication: abdominal pain Rate (beats per minute): 98 Rhythm: normal sinus Findings: RBBB, no acute ischemic change, no ectopy ED Course 1538: Previous medical records were reviewed. The patient was evaluated in room C4. A complete history and physical examination was performed. 1543: Ordered Zofran 4 mg IV 1704: Ordered Morphine Sulfate 4 mg IV 9: I reassessed the patient at this time. He is feeling better and resting comfortably. I discussed the results and treatment plan with the patient. I answered all pertaining questions that he had. He expressed understanding and verbalized agreement. The patient will be discharged home. Medical Decision Differential considered: pancreatitis, hepatitis, or acute cholecystitis, AAA, UTI, pyelonephritis, kidney stones, appendicitis, diverticulitis, shingles, bowel obstruction mesenteric ischemia, intussusception, hernia, testicular torsion, ovarian torsion, ruptured ovarian cyst, ectopic , . This is a 82-year-old male who presents to the ED with a chief complaint fall. The patient states that he fell 2 days ago. He was released from [place] after : Surgery earlier this week. The patient states that today he was feeling fine in the morning. This afternoon he developed some nausea and some right upper quadrant abdominal pain. His vital signs are normal. His physical exam revealed some tenderness in the right upper quadrant. Chest x-ray was negative for acute disease. Ultrasound the gallbladder was negative for abnormality. White blood cell count was 14.4. Hemoglobin is 9.2. BUN is 30 and glucose is 148. LFTs were normal. CT scan of the head was done and was negative for acute traumatic injury. Urine did not show infection. A CT scan of the abdomen and pelvis with oral and IV contrast revealed some nonspecific enteritis and otherwise expected postoperative changes. The patient was treated with IV Zofran. He was told the results of the test. He is felt to be stable for discharge and outpatient follow-up. He will return if his symptoms worsen over the next 24-[address] scan and evaluation. Medication Reconcilliation Current Medication List: was personally reviewed by me Blood Pressure Screening Patient's blood pressure: Elevated blood pressure Blood pressure disposition: Elevated BP felt to be situational Impression Primary Impression: RUQ abdominal pain Additional Impression: Nausea Scribe Attestation The scribe's documentation has been prepared under my direction and personally reviewed by me in its entirety. I confirm that the note above accurately reflects all work, treatment, procedures, and medical decision making performed by me. Departure Information Dispostion Home / Self-Care Referrals Ena Lau M.D. (MEDICAL) (PCP) Patient Instructions My [facility] Additional Instructions Return to the emergency department for reevaluation if your symptoms worsen over the next 24-48 hours. Follow-up with your doctor for recheck on Thursday or Thursday if symptoms persist. Problem Qualifiers
[2017-07-31 16:42] LABS: ALBUMIN 3.5 gm/dl (3.4-5.0); CALCIUM 9.6 mg/dl (8.5-10.1); CREATININE 0.92 mg/dl (0.60-1.40); POTASSIUM 4.3 mmol/L (3.5-5.1)
[2017-07-31 16:44] LABS: TOTAL PROTEIN 7.6 gm/dl (6.4-8.2)
--- NOTE | 2017-07-31 16:52 | DIAGNOSTIC IMAGING REPORT ---
GALLBLADDER-ABD LIMITED CLINICAL HISTORY: ABDOMINAL PAIN/GI pain. Nausea. TECHNIQUE: Ultrasound COMPARISON STUDY: None FINDINGS: Normal gallbladder. Colon wall 3 mm. Common bile duct 3 mm. There is uniform. Pancreas and right kidney are unremarkable. No evidence for hydronephrosis. IMPRESSION: No acute process. The above report was generated using voice recognition software. It may contain grammatical, syntax or spelling errors. Electronically signed by: Drew Davis M.D. 07/31/2017 4:51 PM Dictated Date/Time: 07/31/2017 4:49 PM
[2017-07-31] MEDS ORDERED: MoRPHine SULFATE 4 MG/ML 1 ML CARP\\VIAL IV STA (17:04)
--- NOTE | 2017-07-31 18:58 | DIAGNOSTIC IMAGING REPORT ---
ABDOMEN AND PELVIS CT WITH IV AND ORAL CONTRAST CT DOSE: 1479.47 mGy.cm HISTORY: Generalized abdominal pain. Fall. TECHNIQUE: Multiaxial CT images of the abdomen and pelvis were performed following the use of intravenous and oral contrast. A dose lowering technique was utilized adhering to the principles of ALARA. COMPARISON STUDY: Abdomen and pelvis CT 07/01/2017. FINDINGS: Bibasilar densities favor subsegmental atelectasis. 5 mm subpleural nodule within the right lower lobe is again noted. Bilateral total hip arthroplasties. No suspicious lytic or blastic osseous lesions. No hepatic or splenic masses. Mild thickening of the left adrenal gland, unchanged. The pancreas, right adrenal gland, and kidneys are unremarkable. Trace perihepatic fluid which may be postoperative. Normal gallbladder. Stable prominent periportal lymph nodes. Moderate calcified plaque within the normal caliber abdominal aorta. The deep pelvic structures including the bladder primarily obscured by the metallic artifact from the hip prostheses. Small amount of fluid within the pelvis. Prostate brachytherapy seeds are again noted. Colonic diverticulosis. Interval right hemicolectomy. There is also anastomosis within a mid small bowel loop. No dilated loops of bowel to suggest an obstruction. Nodular fat stranding and edema within the right side of the abdomen and omentum. This favors recent postoperative change. Small focus of gas within the anterior abdomen deep to the midline incision on image 198. This also favors postoperative change. No definite abscess identified at this time. Mild thickening within a short segment of a single small bowel loop seen along the right side of the abdomen on images 242 through 269. IMPRESSION: 1. Interval right hemicolectomy. Mild nodular fat stranding/edema within the right side of the abdomen, a small amount of ascites, and a small focus of intra-abdominal gas seen deep to the incision site. This which favors postoperative changes at this time. No definite abscess identified. One to [address] follow-up is recommended to ensure resolution of these findings. 2. There is a short segment of thickening involving a single small bowel loop along the right side the abdomen. This is consistent with a nonspecific enteritis and could also be due to the recent postoperative change. Electronically signed by: Axel Bautista M.D. 07/31/2017 6:56 PM Dictated Date/Time: 07/31/2017 6:45 PM
--- NOTE | 2017-07-31 19:00 | DIAGNOSTIC IMAGING REPORT ---
HEAD CT NONCONTRAST CT DOSE: 623.48 mGy.cm HISTORY: fall 2 days ago TECHNIQUE: Multiaxial CT images of the head were performed without the use of intravenous contrast. Automated exposure control was utilized for this study. A dose lowering technique was utilized adhering to the principles of ALARA. Comparison: Head CT 06/18/2017. Findings: The paranasal sinuses and mastoid air cells are clear. The calvarium and skull base are intact. There is no mass, hematoma, midline shift, acute infarct. White matter hypodensity is nonspecific but suggestive of microvascular ischemic change. The ventricles and sulci demonstrate mild age-related involutional changes. Impression: No significant change compared to the prior study. No acute intracranial abnormality. Electronically signed by: Axel Bautista M.D. 07/31/2017 6:58 PM Dictated Date/Time: 07/31/2017 6:56 PM
[2017-07-31 20:03] VITALS: BP 138/76; PULSE 90; O2SAT 97
== END 2017-07-31 20:05 | disposition home or self-care (01) ==
LOC: C.EDB 15:22 → C.EDC 20:05
DX: R10.11 Right upper quadrant pain (principal); R11.0 Nausea; I45.10 Unspecified right bundle-branch block; E11.9 Type 2 diabetes mellitus without complications; E78.00 Pure hypercholesterolemia, unspecified; Z85.46 Personal history of malignant neoplasm of prostate; Z90.49 Acquired absence of other specified parts of digestive tract; Z96.649 Presence of unspecified artificial hip joint; Z79.82 Long term (current) use of aspirin; Z79.84 Long term (current) use of oral hypoglycemic drugs; Z79.899 Other long term (current) drug therapy; Z88.5 Allergy status to narcotic agent

== ENCOUNTER 2017-08-03 11:45 | Emergency (ER) | payer OTHER ==
[~2017-08-03] VITALS: Ht 185.4 cm; Wt 102.8 kg
[~2017-08-03 11:45] MED LIST changes: +CITA20TA9 PO; +METF-384 PO; -METF500T PO
[2017-08-03 12:04] VITALS: TEMP 37.1; Ht 185.4 cm; Wt 102.8 kg
--- NOTE | 2017-08-03 12:27 | DIAGNOSTIC IMAGING REPORT ---
CHEST ONE VIEW PORTABLE CLINICAL HISTORY: AMS dyspnea COMPARISON STUDY: 07/31/2017 FINDINGS: Mild stable cardiomegaly. Tortuosity thoracic aorta considered stable. Lungs are considered clear. Diaphragms are smooth. Postoperative changes to the shoulders unchanged. IMPRESSION: Chronic and postoperative change. No acute process. The above report was generated using voice recognition software. It may contain grammatical, syntax or spelling errors. Electronically signed by: Drew Davis M.D. 08/03/2017 12:25 PM Dictated Date/Time: 08/03/2017 12:25 PM
--- NOTE | 2017-08-03 13:19 | DIAGNOSTIC IMAGING REPORT ---
HEAD WITHOUT CONTRAST (CT) CLINICAL HISTORY: 82 years-old Male with AMS. Acute altered mental status with confusion TECHNIQUE: Multiple axial CT images of the head were obtained without contrast. A dose lowering technique was utilized adhering to the principles of ALARA. CT DOSE: 614.27 mGy.cm COMPARISON: Head CT 07/31/2017. FINDINGS: No acute intracranial hemorrhage, midline shift, intracranial mass, hydrocephalus, territorial ischemia or abnormal extra-axial collection. Moderate atrophy with ex vacuo ventriculomegaly. Vascular calcifications are seen at the level of the skull base. Ill-defined areas of low attenuation are again seen within the subcortical, deep and periventricular white matter compatible with chronic microvascular ischemic changes. The calvarium is intact. The paranasal sinuses, mastoid air cells, and middle ear cavities are clear. IMPRESSION: No acute intracranial abnormality. The above report was generated using voice recognition software. It may contain grammatical, syntax or spelling errors. Electronically signed by: Bowen Donald M.D. 08/03/2017 1:18 PM Dictated Date/Time: 08/03/2017 1:15 PM
[2017-08-03] MEDS ORDERED: LPT20 PO (13:24)
[2017-08-03] MEDS ORDERED: ENOX40IN SQ (13:24)
[2017-08-03] MEDS ORDERED: ONDA8TAB62 SL (13:24)
[2017-08-03] MEDS ORDERED: OXYC1TAB3 PO (13:24)
[2017-08-03 13:33] LABS: BASO % 0.1 %; BASO ABS # 0.02 K/uL (0-0.2); EOS % 0.6 %; HEMATOCRIT 25.4 % (42-52); HEMOGLOBIN 7.7 g/dL (14.0-18.0); IG# 0.09 K/uL (0.00-0.02); LYMPH % 6.6 %; MEAN CORPUSCULAR HEMOGLOBIN 21.2 pg (25-34); MEAN CORPUSCULAR HGB CONC 30.3 g/dl (32-36); MEAN PLATELET VOLUME 9.6 fL (7.4-10.4); MONO % 8.1 %; MONO ABS # 1.46 K/uL (0.11-0.59); NEUT % 84.1 %; NEUT ABS # 15.26 K/uL (1.4-6.5); PLATELET COUNT 391 K/uL (130-400); RED CELL DISTRIBUTION WIDTH CV 21.7 % (11.5-14.5); WHITE BLOOD COUNT 18.13 K/uL (4.8-10.8)
[2017-08-03 13:48] LABS: PTT PATIENT 28.7 SECONDS (21.0-31.0)
[2017-08-03 13:52] LABS: ALBUMIN 2.5 gm/dl (3.4-5.0); ALT/SGPT 17 U/L (12-78); AST/SGOT 9 U/L (15-37); BLOOD UREA NITROGEN 43 mg/dl (7-18); CALCIUM 9.4 mg/dl (8.5-10.1); CARBON DIOXIDE 21 mmol/L (21-32); CREATININE 1.16 mg/dl (0.60-1.40); GLUCOSE 169 mg/dl (70-99); POTASSIUM 3.5 mmol/L (3.5-5.1); SODIUM 136 mmol/L (136-145)
[2017-08-03 13:57] LABS: ALKALINE PHOSPHATASE 99 U/L (45-117); TOTAL PROTEIN 6.8 gm/dl (6.4-8.2)
[2017-08-03] MEDS ORDERED: CEFTRIAXONE SOD INJ 1 GM ADDVIAL IV STA (14:04)
[2017-08-03] MEDS ORDERED: OPTIRAY 320 IV PRN (14:15)
--- NOTE | 2017-08-03 15:18 | DIAGNOSTIC IMAGING REPORT ---
ABDOMEN AND PELVIS CT WITH IV CONTRAST CT DOSE: 1466.20 mGy.cm HISTORY: elevated wbc, recent surg TECHNIQUE: Multiaxial CT images of the abdomen and pelvis were performed following the use of intravenous contrast. A dose lowering technique was utilized adhering to the principles of ALARA. COMPARISON STUDY: Abdomen and pelvis CT 07/31/2017. FINDINGS: Bibasilar densities favor subsegmental atelectasis. 5 mm subpleural nodule within the right lower lobe is again noted. Bilateral total hip arthroplasties. No suspicious lytic or blastic osseous lesions. No hepatic or splenic masses. Mild thickening of the left adrenal gland, unchanged. The pancreas, right adrenal gland, and kidneys are unremarkable. Stable prominent periportal lymph nodes. Moderate calcified plaque within the normal caliber abdominal aorta. The deep pelvic structures including the bladder primarily obscured by the metallic artifact from the hip prostheses. Small amount of fluid within the pelvis. Prostate brachytherapy seeds are again noted. Colonic diverticulosis. Interval right hemicolectomy. There is also anastomosis within a right lower quadrant small bowel loop. No dilated loops of bowel to suggest an obstruction. Small focus of gas within the anterior abdomen deep to the midline incision on image 198. This also favors postoperative change and remains unchanged. Interval development multiple foci of extraluminal gas seen along the right side the abdomen with multiple small fluid collections some of which demonstrate peripheral enhancement consistent with abscesses. Dominant abscess within the right side the abdomen measures 4.3 x 2.9 cm. There are multiple thickened loops of small bowel within the right side of the abdomen which may be reactive. One of the abscesses extends into the falciform ligament. An additional abscess also extends to the undersurface of the liver and partially surrounds the gallbladder. This results in mild gallbladder wall thickening. There is no extraluminal contrast to confirm an anastomotic leak. There is also asymmetric focal thickening seen within the outer wall of the gastric antrum which measures up to 1.7 cm in thickness.. There is also a new tiny linear hypodense focus seen within the right hepatic lobe inferiorly which could represent intrahepatic extension of the abscess. IMPRESSION: 1. Interval development of multiple foci of extraluminal gas within the right side the abdomen with multiple small abscesses as described above. This raises the possibility of anastomotic leak. However, there is no definite extraluminal contrast for confirmation. 2. Focal asymmetric thickening along the outer wall of the gastric antrum which could represent reactive change, an additional serosal abscess, or possibly contained microperforation. However, there is no gas at this location to confirm a microperforation. 3. Small linear hypodense focus within the right hepatic lobe inferiorly adjacent to one of the abscesses. This could represent intrahepatic extension of the abscess. 4. Surgical consultation is recommended. Electronically signed by: Axel Bautista M.D. 08/03/2017 3:17 PM Dictated Date/Time: 08/03/2017 2:51 PM
[2017-08-03] MEDS ORDERED: VANCOMYCIN INJ 2,000 MG in SODIUM CHLORIDE 0.9% 500ML 500 ML IV STA (15:24)
[2017-08-03] MEDS ORDERED: VANCOMYCIN CONSULT ACTIVE PRN (15:30)
[2017-08-03] MEDS ORDERED: SODIUM CHLORIDE 0.9% 1000ML 1,000 ML IV STA ×2 (15:38→18:19)
--- NOTE | 2017-08-03 17:42 | EMERGENCY ROOM VISIT NOTE ---
History Report prepared by Wally: Edna Rodriguez Under the Supervision of: Josy MinerO. First contact with patient: 12:10 Chief Complaint: CONFUSION Stated Complaint: AMS Nursing Triage Summary: Pt brought ALS from home, family concerned about pt having increased confusiong. Pt recently in hospital for bowel surgery, was taking pain medications until about a week ago. Pt arrives alert and oriented, follow commands, answers most questions appropriatly. Pt has no complaints. Per EMS family is coming in. History of Present Illness The patient is a 82 year old male who presents to the Emergency Room with complaints of persistent episodes of an altered mental status that began today. The patient states states that the patient has been experiencing episodes in which he is generally confused. The patient denies being confused, stating he feels fine and is unsure why he is in the hospital. He notes that he had 3 bowel movements today. The HPI is limited due to the patient's altered mental status but he declines all complaints. Pt denies headache, change in vision, fevers, chest pain, shortness of breath, nausea, vomiting, diarrhea, pain with urination, and melena. The patient was seen in the Emergency Department on 07/31 for right upper quadrant pain, noting his CT was negative. Source of History: patient History Limited By: AMS Onset: today Position: other (global) Quality: other (altered mental status) Timing: other (persistent) Associated Symptoms: No headache, No chest pain, No nausea, No vomiting, No melena, No diarrhea, No urinary symptoms Review of Systems See HPI for pertinent positives & negatives. A total of 10 systems reviewed and were otherwise negative. Past Medical & Surgical Medical Problems: (1) DM (diabetes mellitus) (2) Hypercholesteremia (3) Prostate carcinoma Surgical Problems: (1) H/O colectomy (2) S/P hip replacement Family History Omitted secondary to age Social History Smoking Status: Never Smoker Alcohol Use: occasionally Drug Use: none Marital Status: Housing Status: lives with family Occupation Status: retired Current/Historical Medications Scheduled Aspirin (Aspirin Ec), 81 MG PO DAILY Atorvastatin (Lipitor), 20 MG PO HS Citalopram Hydrobromide (Celexa), 20 MG PO DAILY Enoxaparin (Lovenox), 40 MG SQ QAM Fish Oil (Maxwell-3), 1,000 MG PO QAM Lisinopril (Lisinopril), 5 MG PO DAILY Meclizine Hcl (Meclizine Hcl), 25 MG PO BID Metformin Hcl (Glucophage), 1,000 MG PO BIDM Metoprolol Succinate (Metoprolol Succinate ER), 25 MG PO DAILY Multivitamins/Minerals (Mvi With Minerals), 1 TAB PO QAM Scheduled PRN Ondansetron Odt (Zofran Odt), 8 MG SL Q6H PRN for Nausea Oxycodone Ir (Roxicodone Ir), 5 MG PO Q6 PRN for Pain Allergies Coded Allergies: Meperidine (Unverified Allergy, Unknown, ., 08/03/17) Oxycodone (Verified Adverse Reaction, Intermediate, MAKES PT HALLUCINATES , 07/31/17) Hydrocodone (Verified Adverse Reaction, Unknown, MAKES PT HALLUCINATE, 07/06) Physical Exam Vital Signs Date Time Temp Pulse Resp B/P (MAP) Pulse Ox O2 Delivery O2 Flow Rate FiO2 08/03/17 19:50 104 22 128/74 96 Room Air 08/03/17 17:45 103 20 115/69 97 Room Air 08/03/17 15:55 88 20 106/50 96 Room Air 08/03/17 13:30 98 18 110/64 94 Room Air 08/03/17 12:21 82 08/03/17 12:04 37.1 20 118/53 96 Room Air Physical Exam GENERAL: Sitting up in bed, alert, well nourished, appeared confused, non-toxic EYE EXAM: normal conjunctiva. OROPHARYNX: no exudate, no erythema, lips, buccal mucosa, and tongue normal and mucous membranes are moist NECK: supple, no nuchal rigidity, no adenopathy, non-tender LUNGS: Clear to auscultation. Normal chest wall mechanics HEART: Tachycardic rate and irregular irregular rhythm. No murmurs, S1 normal and S2 normal ABDOMEN: Abdominal incision is clean, dry, and intact. Abdomen soft, non-tender , normo-active bowel sounds, no masses, no rebound or guarding. BACK: Back is symmetrical on inspection and there is no deformity, no midline tenderness, no CVA tenderness. SKIN: no rashes and no bruising UPPER EXTREMITIES: upper extremities are grossly normal. LOWER EXTREMITIES: No pitting edema. NEURO EXAM: Oriented to place but not year or date. Admits to seeing ants crawling on the wall and Bee's in the room. Cranial nerves II-XII grossly intact, normal speech, no gross weakness of arms, no gross weakness of legs. Medical Decision & Procedures ER Provider Diagnostic Interpretation: Radiology results as stated below per my review and the radiologist's interpretation: CHEST ONE VIEW PORTABLE CLINICAL HISTORY: AMS dyspnea COMPARISON STUDY: 07/31/2017 FINDINGS: Mild stable cardiomegaly. Tortuosity thoracic aorta considered stable. Lungs are considered clear. Diaphragms are smooth. Postoperative changes to the shoulders unchanged. IMPRESSION: Chronic and postoperative change. No acute process. The above report was generated using voice recognition software. It may contain grammatical, syntax or spelling errors. Electronically signed by: Drew Davis M.D. 08/03/2017 12:25 PM Dictated Date/Time: 08/03/2017 12:25 PM HEAD WITHOUT CONTRAST (CT) CLINICAL HISTORY: 82 years-old Male with AMS. Acute altered mental status with confusion TECHNIQUE: Multiple axial CT images of the head were obtained without contrast. A dose lowering technique was utilized adhering to the principles of ALARA. CT DOSE: 614.27 mGy.cm COMPARISON: Head CT 07/31/2017. FINDINGS: No acute intracranial hemorrhage, midline shift, intracranial mass, hydrocephalus, territorial ischemia or abnormal extra-axial collection. Moderate atrophy with ex vacuo ventriculomegaly. Vascular calcifications are seen at the level of the skull base. Ill-defined areas of low attenuation are again seen within the subcortical, deep and periventricular white matter compatible with chronic microvascular ischemic changes. The calvarium is intact. The paranasal sinuses, mastoid air cells, and middle ear cavities are clear. IMPRESSION: No acute intracranial abnormality. The above report was generated using voice recognition software. It may contain grammatical, syntax or spelling errors. Electronically signed by: Bowen Donald M.D. 08/03/2017 1:18 PM Dictated Date/Time: 08/03/2017 1:15 PM A[address]OMEN AND PELVIS CT WITH IV CONTRAST CT DOSE: 1466.20 mGy.cm HISTORY: elevated wbc, recent surg TECHNIQUE: Multiaxial CT images of the abdomen and pelvis were performed following the use of intravenous contrast. A dose lowering technique was utilized adhering to the principles of ALARA. COMPARISON STUDY: Abdomen and pelvis CT 07/31/2017. FINDINGS: Bibasilar densities favor subsegmental atelectasis. 5 mm subpleural nodule within the right lower lobe is again noted. Bilateral total hip arthroplasties. No suspicious lytic or blastic osseous lesions. No hepatic or splenic masses. Mild thickening of the left adrenal gland, unchanged. The pancreas, right adrenal gland, and kidneys are unremarkable. Stable prominent periportal lymph nodes. Moderate calcified plaque within the normal caliber abdominal aorta. The deep pelvic structures including the bladder primarily obscured by the metallic artifact from the hip prostheses. Small amount of fluid within the pelvis. Prostate brachytherapy seeds are again noted. Colonic diverticulosis. Interval right hemicolectomy. There is also anastomosis within a right lower quadrant small bowel loop. No dilated loops of bowel to suggest an obstruction. Small focus of gas within the anterior abdomen deep to the midline incision on image 198. This also favors postoperative change and remains unchanged. Interval development multiple foci of extraluminal gas seen along the right side the abdomen with multiple small fluid collections some of which demonstrate peripheral enhancement consistent with abscesses. Dominant abscess within the right side the abdomen measures 4.3 x 2.9 cm. There are multiple thickened loops of small bowel within the right side of the abdomen which may be reactive. One of the abscesses extends into the falciform ligament. An additional abscess also extends to the undersurface of the liver and partially surrounds the gallbladder. This results in mild gallbladder wall thickening. There is no extraluminal contrast to confirm an anastomotic leak. There is also asymmetric focal thickening seen within the outer wall of the gastric antrum which measures up to 1.7 cm in thickness.. There is also a new tiny linear hypodense focus seen within the right hepatic lobe inferiorly which could represent intrahepatic extension of the abscess. IMPRESSION: 1. Interval development of multiple foci of extraluminal gas within the right side the abdomen with multiple small abscesses as described above. This raises the possibility of anastomotic leak. However, there is no definite extraluminal contrast for confirmation. 2. Focal asymmetric thickening along the outer wall of the gastric antrum which could represent reactive change, an additional serosal abscess, or possibly contained microperforation. However, there is no gas at this location to confirm a microperforation. 3. Small linear hypodense focus within the right hepatic lobe inferiorly adjacent to one of the abscesses. This could represent intrahepatic extension of the abscess. 4. Surgical consultation is recommended. Electronically signed by: Axel Bautista M.D. 08/03/2017 3:17 PM Dictated Date/Time: 08/03/2017 2:51 PM Laboratory Results 08/03/17 13:00 Red Blood Count 3.63, Mean Corpuscular Volume 70.0, Mean Corpuscular Hemoglobin 21.2, Mean Corpuscular Hemoglobin Concent 30.3, Mean Platelet Volume 9.6, Neutrophils (%) (Auto) 84.1, Lymphocytes (%) (Auto) 6.6, Monocytes (%) (Auto) 8.1, Eosinophils (%) (Auto) 0.6, Basophils (%) (Auto) 0.1, Neutrophils # (Auto) 15.26, Lymphocytes # (Auto) 1.20, Monocytes # (Auto) 1.46, Eosinophils # (Auto) 0.10, Basophils # (Auto) 0.02 08/03/17 13:00 Test 08/03/17 13:00 08/03/17 14:10 White Blood Count 18.13 K/uL (4.8-10.8) Red Blood Count 3.63 M/uL (4.7-6.1) Hemoglobin 7.7 g/dL (14.0-18.0) Hematocrit 25.4 % (42-52) Mean Corpuscular Volume 70.0 fL (80-100) Mean Corpuscular Hemoglobin 21.2 pg (25-34) Mean Corpuscular Hemoglobin Concent 30.3 g/dl (32-36) Platelet Count 391 K/uL (130-400) Mean Platelet Volume 9.6 fL (7.4-10.4) Neutrophils (%) (Auto) 84.1 % Lymphocytes (%) (Auto) 6.6 % Monocytes (%) (Auto) 8.1 % Eosinophils (%) (Auto) 0.6 % Basophils (%) (Auto) 0.1 % Neutrophils # (Auto) 15.26 K/uL (1.4-6.5) Lymphocytes # (Auto) 1.20 K/uL (1.2-3.4) Monocytes # (Auto) 1.46 K/uL (0.11-0.59) Eosinophils # (Auto) 0.10 K/uL (0-0.5) Basophils # (Auto) 0.02 K/uL (0-0.2) RDW Standard Deviation 55.0 fL (36.4-46.3) RDW Coefficient of Variation 21.7 % (11.5-14.5) Immature Granulocyte % (Auto) 0.5 % Immature Granulocyte # (Auto) 0.09 K/uL (0.00-0.02) Polychromasia 1+ Hypochromasia PRESENT Poikilocytosis PRESENT Microcytosis PRESENT Ovalocytes 1+ Echinocytes 1+ Prothrombin Time 10.6 SECONDS (9.0-12.0) Prothromb Time International Ratio 1.0 (0.9-1.1) Activated Partial Thromboplast Time 28.7 SECONDS (21.0-31.0) Partial Thromboplastin Ratio 1.1 Anion Gap 12.0 mmol/L (3-11) Est Creatinine Clear Calc Drug Dose 61.8 ml/min Estimated GFR () 67.6 Estimated GFR (Non- 58.3 BUN/Creatinine Ratio 36.7 (10-20) Calcium Level 9.4 mg/dl (8.5-10.1) Total Bilirubin 0.7 mg/dl (0.2-1) Direct Bilirubin 0.2 mg/dl (0-0.2) Aspartate Amino Transf (AST/SGOT) 9 U/L (15-37) Alanine Aminotransferase (ALT/SGPT) 17 U/L (12-78) Alkaline Phosphatase 99 U/L (45-117) Troponin I < 0.015 ng/ml (0-0.045) Total Protein 6.8 gm/dl (6.4-8.2) Albumin 2.5 gm/dl (3.4-5.0) Urine Color DK YELLOW Urine Appearance CLEAR (CLEAR) Urine pH 5.0 (4.5-7.5) Urine Specific [place] 1.033 (1.000-1.030) Urine Protein 1+ (NEG) Urine Glucose (UA) NEG (NEG) Urine Ketones TRACE (NEG) Urine Occult Blood NEG (NEG) Urine Nitrite NEG (NEG) Urine Bilirubin NEG (NEG) Urine Urobilinogen NEG (NEG) Urine Leukocyte Esterase NEG (NEG) Urine WBC (Auto) 1-5 /hpf (0-5) Urine RBC (Auto) 5-10 /hpf (0-4) Urine Hyaline Casts (Auto) 10-30 /lpf (0-5) Urine Epithelial Cells (Auto) 10-20 /lpf (0-5) Urine Bacteria (Auto) NEG (NEG) Laboratory results per my review. Medications Administered Medications (Trade) Dose Ordered Sig/Peggy Route Start Time Stop Time Status Last Admin Dose Admin Ceftriaxone Sodium (Rocephin Inj) 1 gm NOW STAT IV 08/03/17 14:04 08/03/17 14:05 DC 08/03/17 15:04 1 GM Vancomycin HCl 2000 mg/Sodium Chloride 540 ml @ 200 mls/hr ONE STAT IV 08/03/17 15:24 08/03/17 18:05 DC 08/03/17 15:50 200 MLS/HR Sodium Chloride 1,000 ml @ 999 mls/hr Q1H1M STAT IV 08/03/17 15:38 08/03/17 16:38 DC 08/03/17 15:50 999 MLS/HR Sodium Chloride 1,000 ml @ 999 mls/hr Q1H1M STAT IV 08/03/17 18:19 08/03/17 19:19 DC 08/03/17 19:04 999 MLS/HR ECG Indication: altered mental status Rate (beats per minute): 100 Rhythm: atrial fibrillation (RVR) Findings: RBBB, other (non specific ST changes in lateral) ED Course ED COURSE: Vital signs were reviewed and showed he is tachycardic. The patients medical record was reviewed The above diagnostic studies were performed and reviewed. ED treatments and interventions as stated above. 1210: The patient was evaluated in room B4. A complete history and physical examination was performed. 1404: Ordered Rocephin Inj 1gm IV. 1411: I reevaluated the patient, who was resting comfortably. I updated the patient on test findings, he verbalized complete understanding. 1415: Ordered Ioversol 125ml IV. 1524: Ordered Vancomycin HCL 2000mg / Sodium Chloride 540 ml @ 200 mls/hr IV. 1525: I updated the patients family about test findings and possible treatment plans, they verbalized complete agreement and understanding. They agreed to transfer the patient to [facility]. 1538: Ordered Sodium Chloride 1000ml @ 999 mls/hr IV. 1539: I spoke and discussed the patients case with Dr.Buzas [facility], he agreed on transferring the patient to [facility]. 154: I updated the patient and his family on the treatment and transfer plan. They verbalized complete understanding and agreement. The patient will be transferred to [facility]. 1818: Ordered Sodium Chloride 1000 ml @ 999 mls/hr IV. 1909: I went to check on the patient, he is still waiting to be transferred. 1955: The patient will be leaving in an hour. 2001: Ordered Zosyn 4.5gm IV. Medical Decision Differential diagnoses includes but is not limited to toxic, metabolic, infectious, traumatic, cardiac, neurologic, hematologic, psychiatric and inflammatory etiologies. Patient is an 82-year-old male who presents to ER for altered mental status brought in by . Per report of his he has been confused since discharge but this has significantly worsened over the past 3 days. He was seen here 3 days ago and had a CT of the abdomen and pelvis which was unremarkable. CBC shows a leukocytosis of 18,000. Hemoglobin was 7.7 off of his baseline of 8. BMP all his LFTs and bilirubin was unremarkable. Troponin was normal. His does admit to some belly discomfort that he is having. CT shows possible perforation and multiple small abscesses. He was afebrile. He is not hypotensive. He was intermittently tachycardic but I believe this comes and goes with his agitation as he sees ants and bees flying around the room. Patient was given IV antibiotics which included Rocephin as I believed he likely had a UTI based on his age and recent negative CT 3 days ago but following the results of the CT he was given Zosyn and vancomycin. He was kept NPO. He was given 2L NSS. He remained stable while in the ER. He was accepted and transferred to [facility]. He is transferred via ALS for multiple abdominal abscesses status post surgery and septic. Medication Reconcilliation Current Medication List: was personally reviewed by me Blood Pressure Screening Patient's blood pressure: Normal blood pressure Consults Time Called: 1538 Consulting Physician: Dr. Aponte, [facility] Returned Call: 1538 I spoke and discussed the patients case with , [facility], he agreed on transferring the patient to [facility]. Impression Primary Impression: Sepsis Additional Impressions: Abdominal abscess Anemia Confusion Scribe Attestation The scribe's documentation has been prepared under my direction and personally reviewed by me in its entirety. I confirm that the note above accurately reflects all work, treatment, procedures, and medical decision making performed by me. Departure Information Dispostion Discharge/Transfer to [facility] Referrals Ena Lau M.D. (MEDICAL) (PCP) Forms HOME CARE DOCUMENTATION FORM, IMPORTANT VISIT INFORMATION, WORK / SCHOOL INSTRUCTIONS Patient Instructions My [facility] Problem Qualifiers Primary Impression: Sepsis Sepsis type: sepsis due to unspecified organism Qualified Codes: A41.9 - Sepsis, unspecified organism Additional Impressions: Anemia Anemia type: unspecified type Qualified Codes: D64.9 - Anemia, unspecified
[2017-08-03] MEDS ORDERED: PIPERACILLIN/TAZOBACTAM 4.5 GM/100ML D5W IV STA (20:02)
[2017-08-03 20:41] VITALS: BP 151/74; PULSE 102; O2SAT 93
== END 2017-08-03 21:12 | disposition short-term general hospital (02) ==
LOC: EDBD 11:45 → C.EDB 11:49
DX: A41.9 Sepsis, unspecified organism (principal); K65.1 Peritoneal abscess; D64.9 Anemia, unspecified; R41.0 Disorientation, unspecified; E11.9 Type 2 diabetes mellitus without complications; E78.5 Hyperlipidemia, unspecified; C61 Malignant neoplasm of prostate; I45.10 Unspecified right bundle-branch block; Z96.649 Presence of unspecified artificial hip joint; Z79.82 Long term (current) use of aspirin; Z79.84 Long term (current) use of oral hypoglycemic drugs; Z90.49 Acquired absence of other specified parts of digestive tract

== ENCOUNTER 2019-08-30 05:20 | Inpatient (IN) ==
[2019-08-30] MEDS ORDERED: ASPIRIN 81 MG CHEW PO STA (05:46)
[2019-08-30] MEDS ORDERED: LABETALOL HCL IV 5 MG/ML 20ML IV STA (05:46)
[2019-08-30 06:04] LABS: Basophils # (auto) 0.01 K/uL (0-0.2); Basophils % (auto) 0.2 %; Eosinophils # (auto) 0.14 K/uL (0-0.5); Eosinophils % (auto) 2.5 %; Hematocrit (blood only) 44.2 % (42-52); Hemoglobin 14.9 g/dL (14.0-18.0); Immature Granulocytes # (auto) 0.06 K/uL (0.00-0.02); Immature Granulocytes % (auto) 1.1 %; Lymphocytes # (auto) 1.73 K/uL (1.2-3.4); Lymphocytes % (auto) 30.5 %; Mean Corpuscular Hemoglobin 29.4 pg (25-34); Mean Corpuscular Hgb Conc 33.7 g/dL (32-36); Mean Corpuscular Volume 87.4 fL (80-100); Mean Platelet Volume 10.1 fL (7.4-10.4); Monocytes # (auto) 0.56 K/uL (0.11-0.59); Monocytes % (auto) 9.9 %; Neutrophils # (auto) 3.18 K/uL (1.4-6.5); Neutrophils % (auto) 55.8 %; Platelet Count 134 K/uL (130-400); RDW Coefficient of Variation 14.7 % (11.5-14.5); RDW Standard Deviation 46.9 fL (36.4-46.3); Red Blood Count 5.06 M/uL (4.7-6.1); White Blood Count 5.68 K/uL (4.8-10.8)
[2019-08-30 06:20] LABS: Albumin Level 3.8 gm/dl (3.4-5.0); BUN Creatinine Ratio 19.1 (10-20); Bilirubin Direct 0.1 mg/dl (0-0.2); Calcium 9.2 mg/dl (8.5-10.1); Creatinine Clr Calc Pharmacy 57.4 ml/min; Est GFR (African American) 59.2; Est GFR (Non-African American) 51.1; Potassium 3.9 mmol/L (3.5-5.1)
[2019-08-30 06:25] LABS: Bilirubin,Total 0.7 mg/dl (0.2-1); Total Protein 7.6 gm/dl (6.4-8.2); Troponin I 0.029 ng/ml (0-0.045)
--- NOTE | 2019-08-30 06:30 | XRay Report ---
XR chest 1V portable CLINICAL HISTORY: Atypical chest pain COMPARISON STUDY: August 03, 2017 FINDINGS: The heart is enlarged. There is stable aortic tortuosity/ectasia. There is no lobar consoli dation. There is no failure. There are no pleural effusions. There are linear opacities at both lung bases consistent with atelectasis. There are postsurgical changes of bilateral shoulder arthroplastie s[ IMPRESSION: No active disease in the chest. ACT 112: Negative or not required by law. Electronically signed by: Yung Roberto M.D. 08/30/2019 6:28 AM
--- NOTE | 2019-08-30 07:12 | Emergency Department Note ---
Entered by Milo Kelly acting as a scribe for ED Provider Note Name: Terrence Noyola Age: 84 Arrives Via: Walk in Informant: Patient CC: Chest pain HPI: The patient is an 84 year old male who presents to the emergency department with complaints of resolved chest pain beginning this morning. The patient states that he developed chest pain after drinking a cup of coffee. He notes that his pain lasted for under an hour and resolved on its own. He denies any SOB, LOC, vomiting, heart palpitations, abdominal pain, diarrhea, urinary symptoms, headache, and neck pain. He reports that he has a history of diabetes, colon cancer, and he had a slight heart attack in 2018. He denies any family history of heart attacks. The patient states that he took a baby aspirin at home. ROS: See above HPI for pertinent positives & negatives. A total of 10 systems reviewed and were otherwise negative. Past Medical History: Diabetes, colon cancer, ND, dementia, DVT, prostate cancer, hypertension Past Surgical History: Prostatectomy, right shoulder replacement, hip replacement Family History: None Social History: , lives with , drinks alcohol, does not smoke cigarettes or use drugs Home Medications: Please see medication list Allergies: Hydrocodone, meperidine, oxycodone Physical: Vitals: BP 168/129, Pulse 77, Resp 20, Temp 97.7 F, O2 Sat 96 Exam: GENERAL: Patient is elderly appearing and in no acute distress. Hard of hearing. EYES: No scleral icterus, unremarkable pupils. ENT: Mucous membranes moist, no nasal congestion. NECK: No masses appreciated, no meningismus, trachea is midline. RESPIRATORY: No dyspnea. Clear to auscultation and equal bilaterally. No wheeze, no rhonchi. CARDIOVASCULAR: Regular rate and rhythm. No murmurs, rubs, gallops appreciated. GASTROINTESTINAL: Abdomen soft, non-tender, no peritonitis. Bowel sounds positive. Epigastric firm mass at superior aspect of old ventral surgical scar, nontender, nonfluctuant. BACK: No midline tenderness, no CVA tenderness EXTREMITIES: Normal motion all extremities, no cyanosis, no edema. NEUROLOGIC: Alert and oriented, no acute motor or sensory deficits, no focal weakness, cranial nerves grossly intact. SKIN: No rash, no jaundice, no diaphoresis. ED Course: Prior Medical Record, Triage/Nursing Notes, Medications, Allergies reviewed by Me [id number]: The patient was evaluated in room B6. A complete history and physical exam was performed. 0700: [facility] for [facility]. Vital Signs: reviewed and remarkable for HTN Labs: Reviewed and remarkable for hyperglycemia Interventions: saline lock, asa 162mg PO, Labetalol 10mg IV Imaging: CHEST X-RAY: X ray results are stated below per my interpretation: Chest: 1 view: No infiltrate, no effusion, enlarged heart, enlarged aorta, similar to previous EKG: Per My Interpretation: Indication Chest Pain: NSR 60 bpm, qtc 478. Bifascicular Block. No Ectopy. No Ischemia. Compared to EKG 08/03/17, similar morphology though previous appears afib. [facility] Blood pressure: Elevated - Will be monitored by hospitalist. Disposition: Hospitalization Differential: Cardiac Ischemia (STEMI, NSTEMI, Unstable Angina, etc), Aortic Dissection, Arrhythmia, Pulmonary Embolism, Pneumonia, Pneumothorax, MSK, Infectious, Pericarditis/Myocarditis, Esophageal Rupture, Gastrointestinal, amongst other pathologies entertained. Medical Decision Makin yr old male with DMII, HTN, and previous diagnosis of "heart attack" though no stenting arrives with sudden onset left upper chest pain resolved within the hour. No pain on arrival and given further asa here. EKG without ischemia. Labs unremarkable other than hyperglycemia. BP quite elevated and given IV labetalol. Patient pain free throughout. Symptoms do not seem consistent with PE nor dissection. Reflux possible but seems less likely given no history of having symptoms like this before and regularly drinks coffee without issue. Given description of pain I am very much concerned for ACS and will require rule out. With risk factors and recent symptoms hospitalist consulted. Impression: Left-sided chest pain Hyperglycemia Hypertension Eduardo Caldwell MD The scribe's documentation has been prepared under my direction and personally reviewed by me in its entirety. I confirm that the note above accurately reflects all work, treatment, procedures, and medical decision making performed by me. Impression & Plan Left-sided chest pain, Hyperglycemia, Hypertension Past Med/Surg History Medical History (Updated 08/30/19 @ 13:46 by Esteban Becker DO) CAD (coronary artery disease) Dementia Depression Diabetes mellitus, type 2 Diabetic neuropathy Hearing deficit History of colon cancer 2018--sx/oral chemo History of deep vein thrombosis (DVT) of lower extremity right leg---no blood thinners History of prostate cancer 2013--sx/radiation Hyperlipidemia Hypertension Myocardial Infarction hx of NSTEMI in setting of sepsis July [address] segment elevation myocardial manage medically, occurring in the setting of acute sepsis secondary abdominal abscess following colon resection for colon cancer. Sleep apnea cpap Surgical History (Updated 08/30/19 @ 09:06 by Jonelle Palafox PA-C) H/O colectomy (Resolved) History of bilateral cataract extraction History of colon resection 2017 @ [facility] [place] d/t cancer History of left shoulder replacement History of open reduction and internal fixation (ORIF) procedure right ankle--no hardware History of prostate biopsy malignant History of prostatectomy d/t cancer History of revision of total replacement of right hip joint History of right shoulder replacement History of tooth extraction all teeth History of total left hip replacement History of total right hip replacement S/P cataract surgery (Inactive) S/P hip replacement Social History (Updated 08/30/19 @ 09:00 by Jonelle Palafox PA-C) Preferred Language: Norwegian Communication Ability: Effective [employer] Required: No Beliefs That Will Affect Care: None Current Living Situation: Spouse Other Information That Helps Us Care for You: No Feels Safe at Home: Yes Safety Concerns: Feels Safe At This Time Smoking Status: Former smoker Tobacco Type: smokeless tobacco ; Number of Years Since Quit: 3 ; Second Hand Exposure: No ; Hx Alcohol Use: Yes Alcohol type: beer Alcohol Intake Frequency: Weekly Alcohol Intake Frequency Comment: few times per week Hx Substance Use: No Results & Data Vital Signs Vital Signs - 24 hr 08/30/19 05:27 08/30/19 06:17 08/30/19 06:51 Temperature 36.5 C Temperature Source Oral Pulse Rate 77 Pulse Rate [Apical] 53 L 57 L Pulse Rate [Right Finger] Pulse Rhythm [Apical] Regular Pulse Strength [Apical] Respiratory Rate 20 20 20 Respiratory Effort / Characteristics Non-Labored Non-Labored Spontaneous Non-Labored Spontaneous Respiratory Depth Normal Normal Normal Respiratory Pattern Regular Blood Pressure 168/129 H Blood Pressure [Right Arm] 156/76 H 154/104 H Blood Pressure Mean 142 Blood Pressure Mean [Right Arm] 102 120 Blood Pressure Position [Right Arm] Lying Lying Pulse Oximetry 96 93 94 Oxygen Delivery Method Room Air Room Air Room Air Sepsis Recent Fever Within 48 Hours No Sepsis Action Taken by Nursing No Action Required 08/30/19 07:30 08/30/19 08:07 08/30/19 08:21 Temperature Temperature Source Pulse Rate 69 Pulse Rate [Apical] 52 L 53 L Pulse Rate [Right Finger] Pulse Rhythm [Apical] Regular Regular Pulse Strength [Apical] Normal Normal Respiratory Rate 16 18 18 Respiratory Effort / Characteristics Non-Labored Spontaneous Non-Labored Spontaneous Respiratory Depth Normal Normal Respiratory Pattern Regular Regular Blood Pressure 146/99 H Blood Pressure [Right Arm] 163/90 H 171/80 H Blood Pressure Mean Blood Pressure Mean [Right Arm] 114 110 Blood Pressure Position [Right Arm] Lying Lying Pulse Oximetry 96 100 98 Oxygen Delivery Method Room Air Room Air Room Air Sepsis Recent Fever Within 48 Hours Sepsis Action Taken by Nursing 08/30/19 08:56 08/30/19 10:53 08/30/19 10:54 Temperature 36.3 C L 36.3 C L Temperature Source Oral Oral Pulse Rate 59 L Pulse Rate [Apical] 56 L Pulse Rate [Right Finger] 70 Pulse Rhythm [Apical] Regular Pulse Strength [Apical] Normal Respiratory Rate 20 18 Respiratory Effort / Characteristics Non-Labored Spontaneous Respiratory Depth Normal Respiratory Pattern Regular Blood Pressure Blood Pressure [Right Arm] 154/79 H 161/80 H Blood Pressure Mean Blood Pressure Mean [Right Arm] 104 107 Blood Pressure Position [Right Arm] Sitting Lying Pulse Oximetry 93 96 Oxygen Delivery Method Room Air Room Air Sepsis Recent Fever Within 48 Hours Sepsis Action Taken by Assisted Medications Current Medication List: was personally reviewed by me Laboratory Data Attestation: I reviewed the patient's lab results. Result diagrams: 08/30/19 13:53 08/30/19 05:45 Lab Results 08/30/19 08/30/19 08/30/19 Range/Units 05:45 05:45 05:45 WBC 5.68 (4.8-10.8) K/uL RBC 5.06 (4.7-6.1) M/uL Hgb 14.9 (14.0-18.0) g/dL Hct 44.2 (42-52) % MCV 87.4 (80-100) fL MCH 29.4 (25-34) pg MCHC 33.7 (32-36) g/dL RDW Std Deviation 46.9 H (36.4-46.3) fL RDW Coeff of Mini 14.7 H (11.5-14.5) % Plt Count 134 (130-400) K/uL MPV 10.1 (7.4-10.4) fL Immature Gran % (Auto) 1.1 % Neut % (Auto) 55.8 % Lymph % (Auto) 30.5 % [place] % (Auto) 9.9 % Eos % (Auto) 2.5 % Baso % (Auto) 0.2 % Immature Gran # (Auto) 0.06 H (0.00-0.02) K/uL Neut # (Auto) 3.18 (1.4-6.5) K/uL Lymph # (Auto) 1.73 (1.2-3.4) K/uL [place] # (Auto) 0.56 (0.11-0.59) K/uL Eos # (Auto) 0.14 (0-0.5) K/uL Baso # (Auto) 0.01 (0-0.2) K/uL Sodium 141 (136-145) mmol/L Potassium 3.9 (3.5-5.1) mmol/L Chloride 107 (98-107) mmol/L Carbon Dioxide 27 (21-32) mmol/L Anion Gap 7.0 (3-11) BUN 25 H (7-18) mg/dl Creatinine 1.28 (0.6-1.4) mg/dl Est Cr Clr Drug Dosing 57.4 ml/min Est GFR ( Amer) 59.2 Est GFR (Non-Af Amer) 51.1 BUN/Creatinine Ratio 19.1 (10-20) Glucose 243 H (70-99) mg/dl POC Glucose (70-99) mg/dl Calcium 9.2 (8.5-10.1) mg/dl Total Bilirubin 0.7 (0.2-1) mg/dl Direct Bilirubin 0.1 (0-0.2) mg/dl AST 22 (15-37) U/L ALT 37 (12-78) U/L Alkaline Phosphatase 108 (45-117) U/L Troponin I 0.029 (0-0.045) ng/ml Total Protein 7.6 (6.4-8.2) gm/dl Albumin 3.8 (3.4-5.0) gm/dl Lipase 249 (73-393) U/L TSH 1.520 (0.300-4.500) uIu/ml 08/30/19 08/30/19 08/30/19 Range/Units 09:30 11:43 11:47 WBC (4.8-10.8) K/uL RBC (4.7-6.1) M/uL Hgb (14.0-18.0) g/dL Hct (42-52) % MCV (80-100) fL MCH (25-34) pg MCHC (32-36) g/dL RDW Std Deviation (36.4-46.3) fL RDW Coeff of Mini (11.5-14.5) % Plt Count (130-400) K/uL MPV (7.4-10.4) fL Immature Gran % (Auto) % Neut % (Auto) % Lymph % (Auto) % [place] % (Auto) % Eos % (Auto) % Baso % (Auto) % Immature Gran # (Auto) (0.00-0.02) K/uL Neut # (Auto) (1.4-6.5) K/uL Lymph # (Auto) (1.2-3.4) K/uL [place] # (Auto) (0.11-0.59) K/uL Eos # (Auto) (0-0.5) K/uL Baso # (Auto) (0-0.2) K/uL Sodium (136-145) mmol/L Potassium (3.5-5.1) mmol/L Chloride (98-107) mmol/L Carbon Dioxide (21-32) mmol/L Anion Gap (3-11) BUN (7-18) mg/dl Creatinine (0.6-1.4) mg/dl Est Cr Clr Drug Dosing ml/min Est GFR ( Amer) Est GFR (Non-Af Amer) BUN/Creatinine Ratio (10-20) Glucose (70-99) mg/dl POC Glucose 167 H 156 H (70-99) mg/dl Calcium (8.5-10.1) mg/dl Total Bilirubin (0.2-1) mg/dl Direct Bilirubin (0-0.2) mg/dl AST (15-37) U/L ALT (12-78) U/L Alkaline Phosphatase (45-117) U/L Troponin I 1.890 H* (0-0.045) ng/ml Total Protein (6.4-8.2) gm/dl Albumin (3.4-5.0) gm/dl Lipase (73-393) U/L TSH (0.300-4.500) uIu/ml Administered Medications Aspirin ([facility]rin Ectab) [facility] [place] Stop: 09/29/19 08:59 Last Admin: 08/30/19 10:27 Dose: 81 mg Documented by: [id number] Atorvastatin Calcium (Lipitor) 20 mg PO [facility] Stop: 09/29/19 20:59 Last Admin: 08/30/19 21:34 Dose: 20 mg Documented by: [id number] Citalopram Hydrobromide (Celexa) 20 mg PO [facility] Stop: 09/29/19 08:59 Last Admin: 08/30/19 10:28 Dose: 20 mg Documented by: [id number] Donepezil HCl (Aricept) 5 mg PO [facility] Stop: 09/29/19 20:59 Last Admin: 08/30/19 21:35 Dose: 5 mg Documented by: [id number] Fish Oil ([place]-3 (Purified Fish Oil)) 1 gm [facility] [place] Stop: 09/29/19 08:59 Last Admin: 08/30/19 10:28 Dose: 1 gm Documented by: [id number] Gabapentin (Neurontin) 100 mg PO BID [facility] Stop: 09/29/19 08:59 Last Admin: 08/30/19 21:34 Dose: 100 mg Documented by: [id number] Admin: 08/30/19 10:27 Dose: 100 mg Documented by: [id number] Heparin Sodium/Dextrose (Heparin Sodium/Dextrose) 25,000 units in 500 mls @ 34 mls/hr IV .[id number] [facility]; Protocol Stop: 09/29/19 13:14 Last Titration: 08/30/19 21:57 Dose: 1,700 units/hr, 34 mls/hr Documented by: [id number] Cosigned by: [id number] Titration: 08/30/19 14:51 Dose: 1,700 units/hr, 34 mls/hr Documented by: [id number] Cosigned by: [id number] Admin: 08/30/19 14:10 Dose: 1,700 units/hr, 34 mls/hr Documented by: [id number] Cosigned by: [id number] Insulin Aspart (Novolog Flexpen) 0 units SC Q6 [facility] Stop: 09/29/19 11:59 Last Admin: 08/30/19 17:29 Dose: 6 units Documented by: [id number] Cosigned by: [id number] Admin: 08/30/19 12:21 Dose: 1 units Documented by: [id number] Cosigned by: [id number] Insulin Glargine (Lantus Solostar Pen) 0 - 10 units SC BID [facility]; Protocol Stop: 09/29/19 08:59 Last Admin: 08/30/19 21:35 Dose: 10 units Documented by: [id number] Cosigned by: [id number] Admin: 08/30/19 10:45 Dose: 5 units Documented by: [id number] Cosigned by: [id number] Lisinopril (Zestril) 2.5 mg PO QAM [facility] Stop: 09/29/19 08:59 Last Admin: 08/30/19 10:28 Dose: 2.5 mg Documented by: [id number] Metoprolol Succinate (Toprol Xl) 25 mg PO HS [facility] Stop: 09/29/19 20:59 Last Admin: 08/30/19 21:34 Dose: 25 mg Documented by: [id number] Multivitamins/Minerals (Multivitamin W/ Minerals Tab) [facility] [place] Stop: 09/29/19 08:59 Last Admin: 08/30/19 10:28 Dose: 1 tab Documented by: [id number] Discontinued Medications Aspirin (Aspirin Chew) 162 mg PO NOW STA Stop: 08/30/19 05:47 Last Admin: 08/30/19 05:54 Dose: 162 mg Documented by: [id number] Heparin Sodium/Dextrose () 1 ea IV Q15M [facility]; Protocol Stop: 08/30/19 13:50 Last Admin: 08/30/19 14:48 Dose: Not Given Documented by: [id number] Admin: 08/30/19 14:05 Dose: Not Given Documented by: [id number] Sodium Chloride (Nss 1000ml) 1,000 mls @ 80 mls/hr IV .[id number] [facility] Stop: 08/30/19 21:15 Last Infusion: 08/30/19 22:00 Dose: 0 mls/hr Documented by: [id number] Admin: 08/30/19 09:39 Dose: 80 mls/hr Documented by: [id number] Heparin Sodium (Porcine) 8,000 (units/ Syringe) 8 mls @ 10 mls/min IV NOW ONE Stop: 08/30/19 13:41 Last Admin: 08/30/19 14:10 Dose: 10 mls/min Documented by: [id number] Cosigned by: [id number] Labetalol HCl (Normodyne) 10 mg IV NOW STA Stop: 08/30/19 05:47 Last Admin: 08/30/19 05:54 Dose: 10 mg Documented by: [id number] Cosigned by: [id number] Discharge Plan Visit Data *Final* Discharge Date/Time: 08/30/19 08:21 Chief Complaint: Chest Pain Stated Complaint: CHEST PAIN ED Provider: Eduardo Caldwell Discharge Problem: Left-sided chest pain, Hyperglycemia, Hypertension Patient Disposition: Admitted As Inpatient Discharge Instructions Interventions: ED Discharge Assessment Last Done: 08/30/19 08:21 Discharge Problem: Hypertension Qualifiers: Hypertension type: unspecified Qualified Code(s): I10 - Essential (primary) hypertension The scribe's documentation has been prepared under my direction and personally reviewed by me in its entirety. I confirm that the note above accurately reflects all work, treatment, procedures, and medical decision making performed by me.
[2019-08-30] MEDS ORDERED: SODIUM CHLORIDE 0.9% 1000ML 1,000 ML IV SCH (08:46)
--- NOTE | 2019-08-30 08:51 | History & Physical Report ---
Date of Service August 30, 2019 Assessment & Plan (1) Left-sided chest pain: This is an 84-year-old male who has significant PMH of CAD, HTN, HLD, T2DM, diabetic neuropathy, chronic RBBB, diastolic CHF, history of PAF, history of RLE DVT, MARKO on CPAP, history of prostate cancer status post radiation, history of invasive adenocarcinoma colon cancer status post partial colectomy, dementia who presents to [facility] secondary to chest pain that started at 4 AM. Given hx of T2DM, HTN, HLD, CAD and age pt at risk for cardiac event. Hx sounds more convincing of GI related esophageal spasms vs reflux; however must rule out ACS, trop WNL but detectable. admit to telemetry consult cardiology keep NPO for now in event stress test warranted vs other cardiac intervention cycle troponin and repeat ECG IVF 80cc/hr NS x 1 L (baseline cr 1.1, cr today 1.28) obtain echocardiogram lipid panel in a.m. (2) Hypertension: pt with HTN urgency on arrival received 10mg IV labetolol, BP now 146/99 prior BP readings in [facility] appear well controlled on metoprolol and low dose lisinopril HTN possibly in setting of pain and setting vs acs monitor closely (3) CAD (coronary artery disease): hx of NSTEMI managed medically 07/2017 2/2 to acute sepsis abn stress echo 12/26/11 with baseline small inferior infarct with ame infarct ischemia last echo 03/19/2018 revealed preserved EF 55 to 59%, mild aortic valvular s clerosis, grade 1 diastolic dysfunction, aortic root enlargement, mild basal inferior wall hypokinesis Continue ASA, statin, metoprolol, lisinopril cardiology consulted (4) DM (diabetes mellitus): A1C 7.7 on 08/16/2019 On metformin and Jardiance as outpatient Hyperglycemic on arrival likely secondary to ingestion of cake SIDE LASTER STAPLE Hold outpatient regimen Place on Lantus/NovoLog per protocol (5) Hyperlipidemia: continue statin (6) Sleep apnea: CPAP at HS (7) Diabetic neuropathy: continue gabapentin (8) DVT prophylaxis: SCD/TEDS Disposition: admit to tele, if work up negative possible discharge later today Follow up: PCP Dr. Saldana upon discharge along with appropriate cardiology follow up Pt was seen and examined in collaboration with Dr. Pat, please see addendum History of Present Illness Chief Complaint: Chest pain starting at 4 AM. Primary Care Provider: Victoria Saldana DO This is an 84-year-old male who has significant PMH of CAD, HTN, HLD, T2DM, diabetic neuropathy, chronic RBBB, diastolic CHF, history of PAF, history of RLE DVT, MARKO on CPAP, history of prostate cancer status post radiation, history of invasive adenocarcinoma colon cancer status post partial colectomy, dementia who presents to [facility] secondary to chest pain that started at 4 AM. is at bedside. Patient was sitting up drinking coffee and eating a piece of cake at approximately 3 AM. Approximately 30 minutes to 1 hour later he developed left- sided chest discomfort, 6/10, described as dull ache, nonradiating, never had in past, nothing made worse, improved with ASA, had associated belching but denies diaphoresis, shortness breath, palpitations, nausea or vomiting. + associated belching per . He denies any recent illness, fever, chills, sweats, lightheadedness, dizziness, shortness breath at rest, cough, hemoptysis, nausea, vomiting, abdominal pain, change in bowel or urinary habits. He reports having, "mild heart attack," in past when in hospital for colon cancer surgery. At that time he denied having any chest pain. He denies any prior history of indigestion or heartburn. He states he does not check his blood pressure regularly at home but does check his blood sugars. Blood sugars mostly in the 170s. He does elicit that yesterday when he went to [place] for a meeting he had a transient 5-minute episode of blurred vision which resolved without any other associated symptoms. He did not take any of his morning medications. Per his he is fairly inactive especially given winter months. He denies any associated chest pain or shortness of breath with exertion; however his exertion is minimal. He lives in double wide trailer and will get up from recliner to walk about house but otherwise no physical activity. In ED patient was significantly hypertensive upon arrival. Initial BP was 168/129. He was otherwise hemodynamically stable. Initial troponin was detectable at 0.029 but WNL. EKG revealed chronic right BBB and bifascicular block. No acute ischemic changes noted. CBC was relatively unremarkable. He did have mild elevation BUN 25 creatinine 1.28 and glucose 243. He was asymptomatic on arrival and did not receive nitro. Did receive 162mg ASA and 10mg IV labetalol. Allergies Allergy/AdvReac Type Severity Reaction Status Date / Time hydrocodone Allergy Intermediate MAKES PT Verified 08/30/19 05:39 HALLUCINATE meperidine Allergy Intermediate psych Verified 08/30/19 05:39 complications oxycodone Allergy Intermediate MAKES PT Verified 08/30/19 05:39 HALLUCINATES Home Medications Home Medications Medication Instructions Recorded Confirmed Type Jardiance 25 mg PO QAM 07/25/19 08/30/19 History aspirin 81 mg PO QAM 07/25/19 08/30/19 History atorvastatin 20 mg PO HS 07/25/19 08/30/19 History citalopram 20 mg PO QAM 07/25/19 08/30/19 History clotrimazole 1 applic TOPICAL BID PRN 07/25/19 08/30/19 History donepezil 5 mg PO HS 07/25/19 08/30/19 History gabapentin 100 mg PO BID 07/25/19 08/30/19 History lisinopril 2.5 mg PO QAM 07/25/19 08/30/19 History meclizine 25 mg PO DAILY PRN 07/25/19 08/30/19 History metformin 500 mg PO BIDM 07/25/19 08/30/19 History metoprolol succinate 25 mg PO HS 07/25/19 08/30/19 History multivitamin with minerals 1 tab PO QAM 07/25/19 08/30/19 History omega 9-hdx-alm-fish oil [Fish Oil] 1 cap PO QAM 07/25/19 08/30/19 History ondansetron HCl [Zofran] 8 mg PO BID PRN 07/25/19 08/30/19 History Past Med/Surg History Medical History (Updated 08/30/19 @ 09:06 by Jonelle Palafox PA-C) CAD (coronary artery disease) Dementia Depression Diabetes mellitus, type 2 Diabetic neuropathy Hearing deficit History of colon cancer 2017--sx/oral chemo History of deep vein thrombosis (DVT) of lower extremity right leg---no blood thinners History of prostate cancer 2013--sx/radiation Hyperlipidemia Hypertension Myocardial Infarction hx of NSTEMI in setting of sepsis July [address] segment elevation myocardial manage medically, occurring in the setting of acute sepsis secondary abdominal abscess following colon resection for colon cancer. Sleep apnea cpap Surgical History (Updated 08/30/19 @ 09:06 by Jonelle Palafox PA-C) H/O colectomy (Resolved) History of bilateral cataract extraction [place] [facility] [place] History of left shoulder replacement History of open reduction and internal fixation (ORIF) procedure right ankle--no hardware History of prostate biopsy malignant History of prostatectomy d/t cancer History of revision of total replacement of right hip joint History of right shoulder replacement History of tooth extraction all teeth History of total left hip replacement History of total right hip replacement S/P cataract surgery (Inactive) S/P hip replacement Social History (Updated 08/30/19 @ 09:00 by Jonelle Palafox PA-C) Preferred Language: Yakut Communication Ability: Effective 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 Beliefs That Will Affect Care: None Current Living Situation: Spouse Other Information That Helps Us Care for You: No Feels Safe at Home: Yes Safety Concerns: Feels Safe At This Time Smoking Status: Former smoker Tobacco Type: smokeless tobacco ; Number of Years Since Quit: 3 ; Second Hand Exposure: No ; Hx Alcohol Use: Yes Alcohol type: beer Alcohol Intake Frequency: Weekly Alcohol Intake Frequency Comment: few times per week Hx Substance Use: No Review of Systems Review of Systems: All systems reviewed & are unremarkable except as noted in HPI & below Physical Exam Physical Exam: Constitutional: WD/WN, elderly, M, vitals as above, NAD, sitting up in bed, pleasant, conversing easily Head: Normocephalic, Atraumatic Eyes: PERRL, conjunctivae normal, anicteric sclerae ENMT: external ear and nose normal, oropharynx normal Neck: trachea midline, no thyromegaly normal visual inspection Respiratory: normal respiratory effort, lungs clear to auscultation, no wheeze, rales, rhonchi. Normal insp/exp effort, no accessory muscle use Cardiovascular: RRR, no murmur,b/l venous stasis changes R> L, trace b/l pre tibial edema Vessels: no JVD or carotid bruit Chest: normal inspection of chest Abdomen: normal bowel sounds, soft, nontender, no hepatosplenomegaly Musculoskeletal: no cyanosis or clubbing, extremities motor strength 5/5 Skin: no rashes, warm and dry normal turgor Neurologic: PERRL, EOMI, accommodation nl, no face palsy, no dysarthria CN's II-XI intact bilaterally and moves all extremities Psychiatric: A+Ox3, euthymic affect Lymphatic: no cervical or axillary lymphadenopathy : deferred Results & Data Vital Signs (Past 12 Hours) Vital Signs Temp Pulse Pulse Resp BP BP Pulse Ox 08/30/19 08:21 69 18 146/99 H 98 08/30/19 08:07 53 L 18 171/80 H 100 08/30/19 07:30 52 L 16 163/90 H 96 08/30/19 06:51 57 L 20 154/104 H 94 08/30/19 06:17 53 L 20 156/76 H 93 08/30/19 05:27 36.5 C 77 20 168/129 H 96 Laboratory Results Short CBC 08/30/19 08/30/19 Range/Units 05:45 05:45 WBC 5.68 (4.8-10.8) K/uL Hgb 14.9 (14.0-18.0) g/dL Hct 44.2 (42-52) % Plt Count 134 (130-400) K/uL Creatinine 1.28 (0.6-1.4) mg/dl Est Cr Clr Drug Dosing 57.4 ml/min Troponin I 0.029 (0-0.045) ng/ml BMP 08/30/19 05:45 Sodium 141 Potassium 3.9 Chloride 107 Carbon Dioxide 27 BUN 25 H Creatinine 1.28 Glucose 243 H Calcium 9.2 Cardiac Enzymes 08/30/19 Range/Units 05:45 Troponin I 0.029 (0-0.045) ng/ml Liver Function 08/30/19 Range/Units 05:45 Total Bilirubin 0.7 (0.2-1) mg/dl Direct Bilirubin 0.1 (0-0.2) mg/dl AST 22 (15-37) U/L ALT 37 (12-78) U/L Alkaline Phosphatase 108 (45-117) U/L Albumin 3.8 (3.4-5.0) gm/dl Diagnostic Findings CXR: FINDINGS: The heart is enlarged. There is stable aortic tortuosity/ectasia. There is no lobar consolidation. There is no failure. There are no pleural effusions. There are linear opacities at both lung bases consistent with atelectasis. There are postsurgical changes of bilateral shoulder arthroplasties[ IMPRESSION: No active disease in the chest. Medications Administered Discontinued Medications Aspirin (Aspirin Chew) 162 mg PO NOW STA Stop: 08/30/19 05:47 Last Admin: 08/30/19 05:54 Dose: 162 mg Documented by: [id number] Labetalol HCl (Normodyne) 10 mg IV NOW STA Stop: 08/30/19 05:47 Last Admin: 08/30/19 05:54 Dose: 10 mg Documented by: [id number] Cosigned by: [id number] ECG Rate (beats per minute): 60 Rhythm: sinus with SA Findings: + LAFB, + RBBB and + prolonged QT (QTC 478ms) Code Status & VTE Plan Code Status Full Code VTE Prophylaxis Plan VTE Prophylaxis will be ordered: Yes Supervising Physician Co-Signing Physician Notes I saw this patient with the physician school health assistant, I participated in the history, physical, review of systems, and physical exam. I reviewed the medications with the patient and the physician school health assistant and helped reconcile the medications. I helped take a detailed family and social history as well. I formulated the a ssessment and plan personally with the physician school health assistant and went over it with the patient. ROS-No Headache, No Visual Changes, No Nausea, No Vomiting, No Fever, No Chills, No Neck Pain or Stiffness, No Chest Pain, No Palpitations, No SOB, No V[place]SQUE[place], No Cough, No Sputum, No Wheezing, No Abdominal Pain, No Diarrhea, No Hematemesis, No Hemoptysis, No Unexpected Weight Loss, No Flank pain, No Melena, No Hematochezia, No Frequency, No Urgency, No Burning, No Hematuria, No Rashes, No Diaphoresis. Appetite is Normal, Feels gret now Physical Exam Gen-AAO x 3, NAD, Afebrile, Obese Head-NCAT, EOMI, PERRLA, Anicteric Sclera, No Posterior Pharyngeal Erythema Neck-Supple, No JVD, No Thyromegaly, No Masses, No LAD, No Bruits Lungs-Clear to Auscultation Bilaterally, No Rales, No Rhonchi, No Wheezing, No Crepitus Chest-No S4, +S1, +S2, No S3, No Murmurs, No Rubs, No Gallops, No Ectopy Abdomen-Soft, Bowel Sounds Present, Non Tender, Non Distended, No Hepatomegaly, No Splenomegaly, No Palpable Masses, No Rebound, No Rigidity, No Guarding Musculoskeletal-Full Range of Motion Bilaterally, No CVAT Extremities-No Cyanosis, No Clubbing, No Edema Nuero-Cranial Nerves II-XII grossly intact, Motor WNL, DTRs WNL, Strength WNL, Non Focal Psych-Normal Mood (1) Hypertension Hypertension type: unspecified Qualified Code(s): I10 - Essential (primary) hypertension
[2019-08-30] MEDS ORDERED: GLUCOSE 10 TABS/TUBE PO PRN (08:52)
[2019-08-30] MEDS ORDERED: MAGNESIUM HYDROXIDE SUSP 30 ML UDC PO PRN (08:52)
[2019-08-30] MEDS ORDERED: ACETAMINOPHEN 325 MG TAB PO PRN (08:52)
[2019-08-30] MEDS ORDERED: ALUMINUM/MAGNESIUM SUSP 30 ML UDC PO PRN (08:52)
[2019-08-30] MEDS ORDERED: GLUCAGON FOR INJ 1 MG VIAL SQ PRN (08:52)
[2019-08-30] MEDS ORDERED: DEXTROSE 50% 50 ML SYRINGE IV PRN (08:52)
[2019-08-30] MEDS ORDERED: ONDANSETRON INJ 2 MG/ML 2 ML VIAL IV PRN (08:52)
[2019-08-30] MEDS ORDERED: POLYETHYLENE (MIRALAX) 17 GM PACK PO PRN (08:52)
[2019-08-30] MEDS ORDERED: NITROGLYCERIN SL 0.4 MG/TAB TAB SL PRN (08:52)
[2019-08-30] MEDS ORDERED: CARBOHYDRATES FOR HYPOGLYCEMIA PO PRN (08:52)
[2019-08-30] MEDS ORDERED: GLUCOSE 40% GEL 15 GM TUBE PO PRN (08:52)
[2019-08-30 10:07] LABS: Thyroid Stimulating Hormone 1.52 uIu/ml (0.300-4.500)
[2019-08-30] MEDS: GABAPENTIN 100 MG CAP PO SCH ×2 (10:27→21:34)
[2019-08-30] MEDS: ASPIRIN 81 MG ECTAB PO SCH (10:27)
[2019-08-30] MEDS: CEROVITE ADV FORMULA TAB PO SCH (10:28)
[2019-08-30] MEDS: OMEGA-3 (PURIFIED FISH OIL) 1 GM CAP PO SCH (10:28)
[2019-08-30] MEDS: CITALOPRAM 20 MG TAB PO SCH (10:28)
[2019-08-30] MEDS: INSULIN GLARGINE SOLOSTAR 100 UNITS/ML 3 ML PEN SC SCH ×2 (10:45→21:35)
[2019-08-30] MEDS: INSULIN ASPART 100 UNITS/ML 3 ML PEN SC SCH ×2 (12:21→17:29)
--- NOTE | 2019-08-30 13:22 | Cardiology Consultation ---
Date of Consultation August 30, 2019 Assessment & Plan (1) NSTEMI (non-ST elevated myocardial infarction): Patient with findings of non-ST segment elevation myocardial infarction with having had transient chest discomfort early this morning, and his second troponin is not elevated at 1.89 NG per mL. He is currently pain-free, and hemodynamics are stable. Echocardiogram revealed chronic basal inferior wall motion abnormality with preserved LVEF. Borderline to mild aortic valve steno sis is suggested on echo however he does not have a significant murmur. At present I recommend medication therapy with continued aspirin, atorvastatin, lisinopril. Unfractioned heparin to be initiated. Continue cautious treatment with home dose of metoprolol succinate 25 mg at bedtime given baseline bradycardia bifascicular block. My initial impression is that the patient has done well with medication management for years with a mildly abnormal stress test in February,. He does have a history of dementia and sundowning, but his mental status is intact present. Make him n.p.o. after midnight, will determine best strategy in regards to medication therapy for his ischemic heart disease cardiac catheterization as his hospitalization develops. History of Present Illness Attending Physician: Ronni Pat DO History of Present Illness Terrence Noyola is an 84 year old male seen in cardiology consultation per the request of Lisette Palafox PA-C and Dr Pat of the [facility] service for the evaluation of chest pain, and elevated troponin I. The patient's primary chip bin operator is Dr Lyons of our practice. He had most recently been seen by Yfn Vicente PA-C in 02/2019 at which time stable cardiac signs and symptoms were reported. Patient states that at 3 AM he woke up and had some hot coffee. He then noted intermittent left-sided chest discomfort that waxed and waned for about the next hour until his spouse convinced him to come to the emergency department. Initial troponin was detectable, but not out of the range of normal at 0.029 NG per mL at 5:45 AM. His second level at 11:47 AM however trended up to 1.89 NG per mL. During my assessment of the patient, he was completely free of any anginal symptoms. He was enjoying his lunchtime meal. Heparin had just been ordered by the admitting team, but is yet to be started as his repeat blood work is currently pending. Telemetry reveals stable sinus bradycardia in the 50 bpm range with occasional PVCs. Outpatient Cardiology Problem List: 1.Presumed coronary artery disease, ischemic cardiomyopathy. Ejection fraction 45%, interval improvement to 55% per echo 02/2018. 2.Abnormal exercise stress testing on December 26, 2011 at [facility]. 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 -Nuclear stress testing February,, inferior wall infarct with moderate superimposed ischemia. 3.July [address] segment elevation myocardial manage medically, occurring in the setting of acute sepsis secondary abdominal abscess following colon resection for colon cancer. 4.History of asymptomatic paroxysmal atrial fibrillation and supraventricular tachycardia with anticoagulation not recommended due to anemia, past GI bleeding/colon cancer, and recurrent falls. 5.Type 2 diabetes mellitus 6.Hypertension 7.Dyslipidemia 8.Chronic right bundle branch block 9.Diastolic dysfunction 10.Prostate cancer 11.Colon cancer 12.History of DVT treated with a course of anticoagulation in July 2015 13.Iron deficiency anemia 14.Chart history of depression 15.Chart history of [place] syndrome Allergies Allergy/AdvReac Type Severity Reaction Status Date / Time hydrocodone Allergy Intermediate MAKES PT Verified 08/30/19 05:39 HALLUCINATE meperidine Allergy Intermediate psych Verified 08/30/19 05:39 complications oxycodone Allergy Intermediate MAKES PT Verified 08/30/19 05:39 HALLUCINATES Home Medications Home Medications Medication Instructions Recorded Confirmed Type Jardiance 25 mg PO QAM 07/25/19 08/30/19 History aspirin 81 mg PO QAM 07/25/19 08/30/19 History atorvastatin 20 mg PO HS 07/25/19 08/30/19 History citalopram 20 mg PO QAM 07/25/19 08/30/19 History clotrimazole 1 applic TOPICAL BID PRN 07/25/19 08/30/19 History donepezil 5 mg PO HS 07/25/19 08/30/19 History gabapentin 100 mg PO BID 07/25/19 08/30/19 History lisinopril 2.5 mg PO QAM 07/25/19 08/30/19 History meclizine 25 mg PO DAILY PRN 07/25/19 08/30/19 History metformin 500 mg PO BIDM 07/25/19 08/30/19 History metoprolol succinate 25 mg PO HS 07/25/19 08/30/19 History multivitamin with minerals 1 tab PO QAM 07/25/19 08/30/19 History omega 7-kuu-gku-fish oil [Fish Oil] 1 cap PO QAM 07/25/19 08/30/19 History ondansetron HCl [Zofran] 8 mg PO BID PRN 07/25/19 08/30/19 History Patient History Medical History (Updated 08/30/19 @ 13:46 by Esteban Becker DO) CAD (coronary artery disease) Dementia Depression Diabetes mellitus, type 2 Diabetic neuropathy Hearing deficit History of colon cancer 2017--sx/oral chemo History of deep vein thrombosis (DVT) of lower extremity right leg---no blood thinners History of prostate cancer 2013--sx/radiation Hyperlipidemia Hypertension Myocardial Infarction hx of NSTEMI in setting of sepsis July [address] segment elevation myocardial manage medically, occurring in the setting of acute sepsis secondary abdominal abscess following colon resection for colon cancer. Sleep apnea cpap Surgical History (Updated 08/30/19 @ 09:06 by Jonelle Palafox PA-C) H/O colectomy (Resolved) History of bilateral cataract extraction History of colon resection 2017 @ [facility] [place] d/t cancer History of left shoulder replacement History of open reduction and internal fixation (ORIF) procedure right ankle--no hardware History of prostate biopsy malignant History of prostatectomy d/t cancer History of revision of total replacement of right hip joint History of right shoulder replacement History of tooth extraction all teeth History of total left hip replacement History of total right hip replacement S/P cataract surgery (Inactive) S/P hip replacement Social History (Updated 08/30/19 @ 09:00 by Jonelle Palafox PA-C) Preferred Language: German Communication Ability: Effective Assembler Dry Cell And Battery Required: No Beliefs That Will Affect Care: None Current Living Situation: Spouse Other Information That Helps Us Care for You: No Feels Safe at Home: Yes Safety Concerns: Feels Safe At This Time Smoking Status: Former smoker Tobacco Type: smokeless tobacco ; Number of Years Since Quit: 3 ; Second Hand Exposure: No ; Hx Alcohol Use: Yes Alcohol type: beer Alcohol Intake Frequency: Weekly Alcohol Intake Frequency Comment: few times per week Hx Substance Use: No Results & Data ([facility]) Vital Signs (Past 12 Hours) Vital Signs Temp Pulse Pulse Pulse Resp BP BP 08/30/19 10:54 36.3 C L 70 18 161/80 H 08/30/19 10:53 59 L 08/30/19 08:56 36.3 C L 56 L 20 154/79 H 08/30/19 08:21 69 18 146/99 H 08/30/19 08:07 53 L 18 171/80 H 08/30/19 07:30 52 L 16 163/90 H 08/30/19 06:51 57 L 20 154/104 H 08/30/19 06:17 53 L 20 156/76 H 08/30/19 05:27 36.5 C 77 20 168/129 H Pulse Ox 08/30/19 10:54 96 08/30/19 10:53 08/30/19 08:56 93 08/30/19 08:21 98 08/30/19 08:07 100 08/30/19 07:30 96 08/30/19 06:51 94 08/30/19 06:17 93 08/30/19 05:27 96 Diagnostic Findings EKG performed 08/30/2019 at 5:36 AM revealed sinus rhythm with sinus arrhythmia at 60 bpm, right bundle branch block, left anterior fascicular block (bifascicular block pattern) with resultant repolarization changes. QRS duration 144 ms. Compared to the prior tracing dated 08/03/2017 sinus rhythm has replaced atrial fibrillation and the rate had decreased by 41 bpm. Prior EKG performed as outpatient at [facility] on 03/14/2019: Sinus bradycardia 50 bpm with first-degree AV block, right bundle branch block. The most recent EKG now reveals bifascicular block. Preoperative pharmacologic nuclear stress test performed 03/19/2018: Pharmacologic nuclear stress test reveals inferior infarction limited to the basal and mid segments of the inferior wall with a moderate degree of superimposed ischemia. Gated SPECT imaging reveals mild inferior wall hypokinesis. The left ventricular ejection fraction was calculated to be 68%.
[2019-08-30] MEDS ORDERED: HEPARIN IV BOLUS 8,000 UNITS in SYRINGE 0 ML IV ONE (13:40)
[2019-08-30] MEDS: HEPARIN SODIUM/DEXTROSE 25,000 UNITS/500 ML BAG IV SCH (14:10)
[2019-08-30 14:20] LABS: Basophils # (auto) 0.02 K/uL (0-0.2); Basophils % (auto) 0.4 %; Eosinophils # (auto) 0.09 K/uL (0-0.5); Eosinophils % (auto) 1.7 %; Hematocrit (blood only) 44.7 % (42-52); Hemoglobin 14.8 g/dL (14.0-18.0); Immature Granulocytes # (auto) 0.04 K/uL (0.00-0.02); Immature Granulocytes % (auto) 0.7 %; Lymphocytes # (auto) 1.85 K/uL (1.2-3.4); Lymphocytes % (auto) 34.1 %; Mean Corpuscular Hemoglobin 29.3 pg (25-34); Mean Corpuscular Volume 88.5 fL (80-100); Mean Platelet Volume 10.4 fL (7.4-10.4); Monocytes # (auto) 0.45 K/uL (0.11-0.59); Monocytes % (auto) 8.3 %; Neutrophils # (auto) 2.97 K/uL (1.4-6.5); Neutrophils % (auto) 54.8 %; Platelet Count 126 K/uL (130-400); RDW Coefficient of Variation 14.6 % (11.5-14.5); RDW Standard Deviation 46.8 fL (36.4-46.3); Red Blood Count 5.05 M/uL (4.7-6.1); White Blood Count 5.42 K/uL (4.8-10.8)
[2019-08-30 14:21] LABS: Prothrombin Time 10.3 Seconds (9.0-12.0)
[2019-08-30 14:28] LABS: Mean Corpuscular Hgb Conc 33.1 g/dL (32-36)
--- NOTE | 2019-08-30 14:54 | Electrocardiogram Report ---
Test Reason : Blood Pressure : / mmHG Vent. Rate : 060 BPM Atrial Rate : 060 BPM P-R Int : 152 ms QRS Dur : 144 ms QT Int : 478 ms P-R-T Axes : 012 -54 053 degrees QTc Int : 478 ms Sinus rhythm with marked sinus arrhythmia Right bundle branch block Left anterior fascicular block Bifascicular block Abnormal ECG When compared with ECG of 03-AUG-2017 11:53, Sinus rhythm has replaced Atrial fibrillation Vent. rate has decreased BY 41 BPM Confirmed by Ty Flores ([id number]) on 08/30/2019 2:53:47 PM Referred By: REFERRED SELF Confirmed By:Ty Flores
[2019-08-30 21:17] LABS: Partial Thromboplastin Ratio 2.2
[2019-08-30] MEDS: METOPROLOL SUCC 25MG EXT REL TAB PO SCH (21:34)
[2019-08-30] MEDS: ATORVASTATIN 20 MG TAB PO SCH (21:34)
[2019-08-30] MEDS: DONEPEZIL HCL 5 MG TAB PO SCH (21:35)
[2019-08-30 21:41] LABS: Partial Thromboplastin Time 59.7 Seconds (21.0-31.0)
[2019-08-31] MEDS: INSULIN ASPART 100 UNITS/ML 3 ML PEN SC SCH ×5 (00:21→20:16)
[2019-08-31] MEDS: HEPARIN SODIUM/DEXTROSE 25,000 UNITS/500 ML BAG IV SCH ×2 (04:48→19:17)
[2019-08-31 06:26] LABS: Partial Thromboplastin Ratio 2.3
[2019-08-31 06:42] LABS: Partial Thromboplastin Time 63.2 Seconds (21.0-31.0)
[2019-08-31 06:49] LABS: BUN Creatinine Ratio 21.4 (10-20); Calcium 8.7 mg/dl (8.5-10.1); Creatinine Clr Calc Pharmacy 72.1 ml/min; Est GFR (African American) 77.9; Est GFR (Non-African American) 67.2; Potassium 3.7 mmol/L (3.5-5.1)
[2019-08-31] MEDS: OMEGA-3 (PURIFIED FISH OIL) 1 GM CAP PO SCH (08:06)
[2019-08-31] MEDS: GABAPENTIN 100 MG CAP PO SCH ×2 (08:06→20:16)
[2019-08-31] MEDS: CITALOPRAM 20 MG TAB PO SCH (08:06)
[2019-08-31] MEDS: ASPIRIN 81 MG ECTAB PO SCH (08:06)
[2019-08-31] MEDS: CEROVITE ADV FORMULA TAB PO SCH (08:07)
[2019-08-31] MEDS: INSULIN GLARGINE SOLOSTAR 100 UNITS/ML 3 ML PEN SC SCH ×2 (08:08→20:14)
--- NOTE | 2019-08-31 08:21 | Hospitalist Progress Note ---
Date of Service August 31, 2019 Assessment & Plan (1) NSTEMI (non-ST elevated myocardial infarction): This is an 84-year-old male who has significant PMH of CAD, HTN, HLD, T2DM, diabetic neuropathy, chronic RBBB, diastolic CHF, history of PAF, history of RLE DVT, MARKO on CPAP, history of prostate cancer status post radiation, history of invasive adenocarcinoma colon cancer status post partial colectomy, dementia who presents to [facility] ED secondary to chest pain that started at 4 AM on day of admission. Risk factors: T2DM, HTN, HLD, CAD Initial troponin 0.029 peaked at 1.89, now 1.160 continue IV Heparin cardiology on board - appreciate their input await decision for medical managem ent vs. cardiac cath Chol panel 131, LDL 68, HDL 33, Trig 151 A1C 7.7 on 08/16/19 continue ASA, atorvastatin, metoprolol, lisinopril (2) Hypertension: pt with HTN urgency on arrival BP currently elevated 162/91 prior BP readings in [facility] appear well controlled continue metoprolol and lisinopril (3) CAD (coronary artery disease): hx of NSTEMI managed medically 07/2017 2/2 to acute sepsis abn stress echo 12/26/11 with baseline small inferior infarct with ame infarct ischemia last echo 03/19/2018 revealed preserved EF 55 to 59%, mild aortic valvular sclerosis, grade 1 diastolic dysfunction, aortic root enlargement, mild basal inferior wall hypokinesis Continue ASA, statin, metoprolol, lisinopril cardiology on board (4) DM (diabetes mellitus): A1C 7.7 on 08/16/2019 On metformin and Jardiance as outpatient hold outpt regimen continue lantus/novolog per protocol (5) Hyperlipidemia: continue statin (6) Sleep apnea: CPAP at encouraged pt to have bring in his own CPAP (7) Diabetic neuropathy: continue gabapentin (8) DVT prophylaxis: IV heparin Dis[facility]: [facility] currently NPO, awaiting cardiology recommendations for further management Follow up: PCP Dr. Saldana upon discharge along with appropriate cardiology follow up Pt was seen and examined in collaboration with , please see addendum Admission and Anticipated Discharge Date Admission Date: August 30, 2019 Supervising Physician Co-Signing Physician Notes Pt was seen and examined. agreed with Jonelle BERNARD exam, assessment and Plan. 84-year-old male who has significant PMH of CAD, HTN, HLD, T2DM, diabetic neuropathy, chronic RBBB, diastolic CHF, history of PAF, history of RLE DVT, MARKO on CPAP, history of prostate cancer status post radiation, history of invasive adenocarcinoma colon cancer status post partial colectomy, dementia who presents to the ED with chest pain. Troponin peaked to 1.89. EKG showed no ischemic ch anges. Continue heparin drip for now. Cardiology on board and discussed with patient about medical management vs cardiac cath. Continue ASA, Statin and Metoprolol for now. Will monitor closely in Telemetry. MD Jarocho Subjective Patient seen and examined in room 239-2. Follow up NSTEMI. He is currently lying in bed. States he did not sleep well last night. Did not tolerate CPAP, "I should have brought my own." Denies any further incidents of chest pain since admission. Denies fever, chills, sweats lightheadedness, dizziness, chest pain, shortness breath, palpitations nausea, vomiting, diarrhea. He had bowel movement yesterday. Currently n.p.o. Review of Systems Review of Systems: All systems reviewed & are unremarkable except as noted in HPI & below Physical Exam Physical Exam: Gen: WD/WN, M, lying in bed, NAD, A&O x3 HEENT: Normocephalic, atraumatic, conjunctivae moist, sclerae anicteric, mucous membranes moist. Lung: Clear to Auscultation bilaterally, no wheezes/rales/rhonchi Heart: Regular rate, regular rhythm, no murmurs, rubs, or gallops Abdomen: Soft, NT, ND +BS x 4 Extremities: trace lower extremity edema Skin: Warm, no rash, negative turgor. Results & Data ([facility]) Vital Signs (Past 12 Hours) Vital Signs Temp Pulse Pulse Resp BP Pulse Ox 08/31/19 07:22 45 L 08/31/19 03:54 36.3 C L 53 L 19 159/80 H 93 08/31/19 00:14 36.4 C L 59 L 19 153/81 H 94 08/30/19 22:15 56 L 18 95 Laboratory Results Short CBC 08/30/19 Range/Units 13:53 WBC 5.42 (4.8-10.8) K/uL Hgb 14.8 (14.0-18.0) g/dL Hct 44.7 (42-52) % Plt Count 126 L (130-400) K/uL BMP 08/31/19 05:42 Sodium 141 Potassium 3.7 Chloride 109 H Carbon Dioxide 24 BUN 22 H Creatinine 1.02 Glucose 142 H Calcium 8.7 Cardiac Enzymes 08/30/19 08/30/19 08/31/19 Range/Units 11:47 13:53 05:42 Troponin I 1.890 H* 1.780 H* 1.160 H* (0-0.045) ng/ml Medications Administered Aspirin (Ecotrin Ectab) 81 mg PO [facility] Stop: 09/29/19 08:59 Last Admin: 08/30/19 10:27 Dose: 81 mg Documented by: [id number] Atorvastatin Calcium (Lipitor) 20 mg PO [facility] Stop: 09/29/19 20:59 Last Admin: 08/30/19 21:34 Dose: 20 mg Documented by: [id number] Citalopram Hydrobromide (Celexa) 20 mg PO [facility] Stop: 09/29/19 08:59 Last Admin: 08/30/19 10:28 Dose: 20 mg Documented by: [id number] Donepezil HCl (Aricept) 5 mg PO [facility] Stop: 09/29/19 20:59 Last Admin: 08/30/19 21:35 Dose: 5 mg Documented by: [id number] Fish Oil (Boaz-3 (Purified Fish Oil)) 1 gm PO [facility] Stop: 09/29/19 08:59 Last Admin: 08/30/19 10:28 Dose: 1 gm Documented by: [id number] Gabapentin (Neurontin) 100 mg PO BID [facility] Stop: 09/29/19 08:59 Last Admin: 08/30/19 21:34 Dose: 100 mg Documented by: [id number] Admin: 08/30/19 10:27 Dose: 100 mg Documented by: [id number] Heparin Sodium/Dextrose (Heparin Sodium/Dextrose) 25,000 units in 500 mls @ 34 mls/hr IV .[id number] [facility]; Protocol Stop: 09/29/19 13:14 Last Titration: 08/31/19 07:15 Dose: 1,700 units/hr, 34 mls/hr Documented by: [id number] Cosigned by: [id number] Titration: 08/31/19 06:44 Dose: 1,700 units/hr, 34 mls/hr Documented by: [id number] Cosigned by: [id number] Admin: 08/31/19 04:48 Dose: 1,700 units/hr, 34 mls/hr Documented by: [id number] Cosigned by: [id number] Titration: 08/31/19 04:48 Dose: 1,700 units/hr, 34 mls/hr Documented by: [id number] Cosigned by: [id number] Titration: 08/30/19 23:22 Dose: 1,700 units/hr, 34 mls/hr Documented by: [id number] Cosigned by: [id number] Titration: 08/30/19 21:57 Dose: 1,700 units/hr, 34 mls/hr Documented by: [id number] Cosigned by: [id number] Titration: 08/30/19 14:51 Dose: 1,700 units/hr, 34 mls/hr Documented by: [id number] Cosigned by: [id number] Admin: 08/30/19 14:10 Dose: 1,700 units/hr, 34 mls/hr Documented by: [id number] Cosigned by: [id number] Insulin Aspart (Novolog Flexpen) 0 units SC Q6 [facility] Stop: 09/29/19 11:59 Last Admin: 08/31/19 05:58 Dose: 1 units Documented by: [id number] Cosigned by: [id number] Admin: 08/31/19 00:21 Dose: Not Given Documented by: [id number] Cosigned by: [id number] Admin: 08/30/19 17:29 Dose: 6 units Documented by: [id number] Cosigned by: [id number] Admin: 08/30/19 12:21 Dose: 1 units Documented by: [id number] Cosigned by: [id number] Insulin Glargine (Lantus Solostar Pen) 0 - 10 units SC BID [facility]; Protocol Stop: 09/29/19 08:59 Last Admin: 08/30/19 21:35 Dose: 10 units Documented by: [id number] Cosigned by: [id number] Admin: 08/30/19 10:45 Dose: 5 units Documented by: [id number] Cosigned by: [id number] Lisinopril (Zestril) 2.5 mg PO QAM [facility] Stop: 09/29/19 08:59 Last Admin: 08/30/19 10:28 Dose: 2.5 mg Documented by: [id number] Metoprolol Succinate (Toprol Xl) 25 mg PO HS [facility] Stop: 09/29/19 20:59 Last Admin: 08/30/19 21:34 Dose: 25 mg Documented by: [id number] Multivitamins/Minerals (Multivitamin W/ Minerals Tab) 1 tab PO QAM [facility] Stop: 09/29/19 08:59 Last Admin: 08/30/19 10:28 Dose: 1 tab Documented by: [id number] Discontinued Medications Aspirin (Aspirin Chew) 162 mg PO NOW STA Stop: 08/30/19 05:47 Last Admin: 08/30/19 05:54 Dose: 162 mg Documented by: [id number] Heparin Sodium/Dextrose () 1 ea IV Q15M [facility]; Protocol Stop: 08/30/19 13:50 Last Admin: 08/30/19 14:48 Dose: Not Given Documented by: [id number] Admin: 08/30/19 14:05 Dose: Not Given Documented by: [id number] Sodium Chloride (Nss 1000ml) 1,000 mls @ 80 mls/hr IV .[id number] [facility] Stop: 08/30/19 21:15 Last Infusion: 08/30/19 22:00 Dose: 0 mls/hr Documented by: [id number] Admin: 08/30/19 09:39 Dose: 80 mls/hr Documented by: [id number] Heparin Sodium (Porcine) 8,000 (units/ Syringe) 8 mls @ 10 mls/min IV NOW ONE Stop: 08/30/19 13:41 Last Admin: 08/30/19 14:10 Dose: 10 mls/min Documented by: [id number] Cosigned by: [id number] Labetalol HCl (Normodyne) 10 mg IV NOW STA Stop: 08/30/19 05:47 Last Admin: 08/30/19 05:54 Dose: 10 mg Documented by: [id number] Cosigned by: [id number] ECG Rate (beats per minute): 58 Rhythm: sinus bradycardia and sinus with SA Findings: + RBBB and + T-wave inversion (V3) Comparison ECG Date: from (08/30/19) Change: the following changes noted (1) Hypertension Hypertension type: unspecified Qualified Code(s): I10 - Essential (primary) hypertension
[2019-08-31] MEDS ORDERED: POTASSIUM CHLORIDE 20 MEQ TABCR PO STA (08:22)
--- NOTE | 2019-08-31 11:06 | Cardiology Progress Note ---
Date of Service August 31, 2019 Assessment & Plan (1) NSTEMI (non-ST elevated myocardial infarction): EKG this a.m. reveals sinus rhythm at 58 bpm with right bundle branch block, T wave inversion noted in lead III T wave flattening in II and aVF. Troponin I levels 0.029, 1.89, 1.78, 1.16 NG per mL most recently this morning at 5:42 AM. Patient has history of RCA territory disease as noted on nuclear stress test in 2018 at which time he had a basal inferior scar with moderate ame-infarct ischemia. Suggest that he may have a complete total occlusion in this territory and this could very well be his culprit based on EKG and echocardiogram this admission. I discussed cardiac catheterization versus medication therapy with the patient. We agreed to proceed with medication therapy to include 48 hours of heparin, I would reserve cardiac catheterization for breakthrough symptoms. Continue aspirin, low-dose metoprolol (with caution given history of bifascicular block) lisinopril, atorvastatin. Blood pressures above goal, will add isosorbide mononitrate, will also consider up titrating lisinopril if necessary for blood pressure. Patient's spouse is due for elective foot surgery tomorrow, . He has a history of dementia, also his mental status seems to be remaining intact at present. Subjective Patient seen and examined. No chest discomfort. Telemetry reveals sinus rhythm in the upper 40 to 50 bpm range. Review of Systems Review of Systems: All systems reviewed & are unremarkable except as noted in HPI & below Physical Exam Physical Exam: Temp Pulse Resp BP Pulse Ox 36.2 C L 45 L 18 162/91 H 95 08/31/19 07:14 08/31/19 07:22 08/31/19 07:14 08/31/19 07:14 08/31/19 07:14 Constitutional: WD/WN, vitals as above Respiratory: normal respiratory effort, lungs clear to auscultation Cardiovascular: RRR, no murmur, no edema Neurologic: PERRL, EOMI, accommodation nl, no face palsy, no dysarthria Results & Data Vital Signs (Past 12 Hours) Vital Signs Temp Pulse Pulse Resp BP BP Pulse Ox 08/31/19 07:22 45 L 08/31/19 07:14 36.2 C L 53 L 18 162/91 H 95 08/31/19 03:54 36.3 C L 53 L 19 159/80 H 93 08/31/19 00:14 36.4 C L 59 L 19 153/81 H 94
[2019-08-31] MEDS ORDERED: Nursing to Pharmacy Communication ONE (11:21)
[2019-08-31] MEDS: CLOPIDOGREL BISULFATE 75 MG TAB PO SCH (12:00)
[2019-08-31] MEDS: ISOSORBIDE MONO EXTENDED REL 30 MG TABCR PO SCH (12:00)
--- NOTE | 2019-08-31 12:02 | Electrocardiogram Report ---
Test Reason : Blood Pressure : / mmHG Vent. Rate : 058 BPM Atrial Rate : 058 BPM P-R Int : 172 ms QRS Dur : 148 ms QT Int : 516 ms P-R-T Axes : 073 -48 -17 degrees QTc Int : 506 ms Poor data quality, interpretation may be adversely affected Sinus bradycardia with sinus arrhythmia Left axis deviation Right bundle branch block Abnormal ECG When compared with ECG of 30-AUG-2019 05:36, T wave inversion now evident in Inferior leads Nonspecific T wave abnormality no longer evident in Anterior leads Confirmed by Ty Flores ([id number]) on 08/31/2019 12:01:34 PM Referred By: REFERRED SELF Confirmed By:Ty Flores
--- NOTE | 2019-08-31 16:11 | Electrocardiogram Report ---
Test Reason : Blood Pressure : / mmHG Vent. Rate : 056 BPM Atrial Rate : 058 BPM P-R Int : 206 ms QRS Dur : 138 ms QT Int : 498 ms P-R-T Axes : 069 -62 -18 degrees QTc Int : 480 ms Poor data quality, interpretation may be adversely affected Sinus bradycardia with sinus arrhythmia Left axis deviation Right bundle branch block Abnormal ECG When compared with ECG of 31-AUG-2019 06:33, No significant change was found Confirmed by Ty Flores ([id number]) on 08/31/2019 4:11:03 PM Referred By: REFERRED SELF Confirmed By:Ty Flores
[2019-08-31] MEDS: ATORVASTATIN 20 MG TAB PO SCH (20:14)
[2019-08-31] MEDS: METOPROLOL SUCC 25MG EXT REL TAB PO SCH (20:15)
[2019-08-31] MEDS: DONEPEZIL HCL 5 MG TAB PO SCH (20:15)
[2019-09-01] MEDS ORDERED: METOPROLOL TARTRATE 25 MG TAB PO ONE (06:00)
[2019-09-01 06:08] LABS: Basophils # (auto) 0.02 K/uL (0-0.2); Basophils % (auto) 0.3 %; Eosinophils # (auto) 0.16 K/uL (0-0.5); Eosinophils % (auto) 2.4 %; Hematocrit (blood only) 40.5 % (42-52); Hemoglobin 13.8 g/dL (14.0-18.0); Immature Granulocytes # (auto) 0.05 K/uL (0.00-0.02); Immature Granulocytes % (auto) 0.8 %; Lymphocytes # (auto) 2.37 K/uL (1.2-3.4); Lymphocytes % (auto) 36.1 %; Mean Corpuscular Hemoglobin 29.5 pg (25-34); Mean Corpuscular Hgb Conc 34.1 g/dL (32-36); Mean Corpuscular Volume 86.5 fL (80-100); Mean Platelet Volume 10.3 fL (7.4-10.4); Monocytes # (auto) 0.74 K/uL (0.11-0.59); Monocytes % (auto) 11.3 %; Neutrophils # (auto) 3.22 K/uL (1.4-6.5); Neutrophils % (auto) 49.1 %; Platelet Count 120 K/uL (130-400); RDW Coefficient of Variation 14.6 % (11.5-14.5); RDW Standard Deviation 46.3 fL (36.4-46.3); Red Blood Count 4.68 M/uL (4.7-6.1); White Blood Count 6.56 K/uL (4.8-10.8)
[2019-09-01 06:35] LABS: Partial Thromboplastin Ratio 2.5
[2019-09-01 06:38] LABS: BUN Creatinine Ratio 21.1 (10-20); Calcium 9.1 mg/dl (8.5-10.1); Creatinine Clr Calc Pharmacy 69.4 ml/min; Est GFR (African American) 74.3; Est GFR (Non-African American) 64.1; Magnesium 2.1 mg/dl (1.8-2.4); Potassium 4.2 mmol/L (3.5-5.1)
[2019-09-01] MEDS: INSULIN ASPART 100 UNITS/ML 3 ML PEN SC SCH ×4 (07:50→21:07)
[2019-09-01] MEDS: ASPIRIN 81 MG ECTAB PO SCH (07:53)
[2019-09-01] MEDS: CITALOPRAM 20 MG TAB PO SCH (07:53)
[2019-09-01] MEDS: CEROVITE ADV FORMULA TAB PO SCH (07:54)
[2019-09-01] MEDS: ISOSORBIDE MONO EXTENDED REL 30 MG TABCR PO SCH (07:54)
[2019-09-01] MEDS: GABAPENTIN 100 MG CAP PO SCH ×2 (07:55→21:06)
[2019-09-01] MEDS: OMEGA-3 (PURIFIED FISH OIL) 1 GM CAP PO SCH (07:55)
[2019-09-01] MEDS: CLOPIDOGREL BISULFATE 75 MG TAB PO SCH (07:55)
[2019-09-01] MEDS: INSULIN GLARGINE SOLOSTAR 100 UNITS/ML 3 ML PEN SC SCH ×2 (07:56→21:08)
--- NOTE | 2019-09-01 09:17 | Hospitalist Progress Note ---
Date of Service September 01, 2019 Assessment & Plan (1) NSTEMI (non-ST elevated myocardial infarction): This is an 84-year-old male who has significant PMH of CAD, HTN, HLD, T2DM, diabetic neuropathy, chronic RBBB, diastolic CHF, history of PAF, history of RLE DVT, MARKO on CPAP, history of prostate cancer status post radiation, history of invasive adenocarcinoma colon cancer status post partial colectomy, dementia who presents to [facility] secondary to chest pain that started at 4 AM on day of admission. Risk factors: T2DM, HTN, HLD, CAD Initial troponin 0.029 peaked at 1.89, now 1.160 cardiology on board - appreciate their input Chol panel 131, LDL 68, HDL 33, Trig 151 A1C 7.7 on 08/16/19 continue IV Heparin continue ASA, atorvastatin, metoprolol, lisinopril Plavix 75 mg and Imdur 30 mg daily were added to regimen. Patient's BP improving 135/66 Echo 08/30/2019: EF 35 to 60%, mild aortic valve stenosis, mild basal inferior wall hypokinesis, otherwise normal wall motion. Compared to prior echo 06/19/2017 LV wall motion unchanged Patient opted for medical management of NSTEMI and echocardiogram suggest he may have a complete total occlusion in his basal inferior area which could be culprit based on EKG and echocardiogram findings - per cardiology Pt to undergo cardiac cath tomorrow a.m 08/21 to concern for RCA disease territory concern for conduction abnormality (2) Paroxysmal atrial fibrillation: @ 0500 pt converted to rate controlled atrial flutter, asymptomatic hx of atrial tachycardia in past per [facility] Continue IV heparin [id number] (age, HTN, CAD, T2DM) cardiology on board - appreciate their input K & Mag WNL, TSH 1.5 on admission (3) Hypertension: pt with HTN urgency on arrival BP currently elevated 135/66 prior BP readings in [facility] appear well controlled continue metoprolol, lisinopril, and Imdur 30 mg added 08/31/2019 (4) CAD (coronary artery disease): hx of NSTEMI managed medically 07/2017 2/2 to acute sepsis abn stress echo 12/26/11 with baseline small inferior infarct with ame infarct ischemia last echo 03/19/2018 revealed preserved EF 55 to 59%, mild aortic valvular sclerosis, grade 1 diastolic dysfunction, aortic root enlargement, mild basal inferior wall hypokinesis Continue ASA, statin, metoprolol, lisinopril, Plavix & Imdur added cardiology on board (5) DM (diabetes mellitus): A1C 7.7 on 08/16/2019 On metformin and Jardiance as outpatient hold outpt regimen continue lantus/novolog per protocol BSG 139, 120, 121 (6) Hyperlipidemia: continue statin (7) Sleep apnea: CPAP at HS encouraged pt to have bring in his own CPAP (8) Diabetic neuropathy: continue gabapentin (9) DVT prophylaxis: IV heparin Disposition: pt admitted to [facility], now with new onset atrial flutter, discharge date unknown Follow up: PCP Dr. Saldana upon discharge along with appropriate cardiology follow up Pt was seen and examined in collaboration with , please see addendum Admission and Anticipated Discharge Date Admission Date: August 30, 2019 Supervising Physician Co-Signing Physician Notes Pt was seen and examined. agreed with Jonelle BERNARD exam, assessment and Plan. 84-year-old male who has significant PMH of CAD, HTN, HLD, T2DM, diabetic neuropathy, chronic RBBB, diastolic CHF, history of PAF, history of RLE DVT, MARKO on CPAP, history of prostate cancer status post radiation, history of invasive adenocarcinoma colon cancer status post partial colectomy, dementia who presents to the ED with chest pain. Troponin peaked to 1.89. EKG showed no ischemic changes. Continue heparin drip for now. He went to atrial flutter last night with rate control. Cardiology on board and plan for cardiac cath tomorrow. Continue ASA, Statin and Metoprolol for now. Will make NPO after midnight. Will monitor closely in Telemetry. MD Jarocho Subjective Patient seen and examined in room 239-2. Follow up NSTEMI and now conversion into atrial flutter. He is currently sitting up at bedside eating breakfast. "I feel great, I will feel even better when I could go home." He denies any fever, chills, sweats, lightheadedness, dizziness, chest pain, shortness breath, palpitations, nausea, vomiting, abdominal pain. He is ambulating to and from the bathroom with assistance. "Why can't I go on my own." States is having surgery today. Patient converted to rate controlled atrial flutter at approximately 0500. Upon my evaluation he continues to maintain atrial flutter with rates 60s and 70s. He is currently asymptomatic and denies prior history of atrial fibrillation or atrial flutter. He remains on IV heparin. Review of Systems Review of Systems: All systems reviewed & are unremarkable except as noted in HPI & below Physical Exam Physical Exam: Gen: WD/WN, M, lying in bed, NAD, A&O x3 HEENT: Normocephalic, atraumatic, conjunctivae moist, sclerae anicteric, mucous membranes moist. Lung: Clear to Auscultation bilaterally, no wheezes/rales/rhonchi Heart: Rate controlled irregular rhythm, regular rhythm, no murmurs, rubs, or gallops Abdomen: Soft, NT, ND +BS x 4 Extremities: No lower extremity edema, +1 pedal pulse b/l equal Skin: Warm, no rash, negative turgor. Results & Data ([facility]) Vital Signs (Past 12 Hours) Vital Signs Temp Pulse Resp BP BP Pulse Ox 09/01/19 07:03 36.3 C L 61 19 168/88 H 95 09/01/19 05:23 75 151/81 H 95 09/01/19 04:13 36.3 C L 54 L 20 168/77 H 95 08/31/19 23:57 36.7 C 54 L 22 137/63 94 Laboratory Results Short CBC 08/30/19 08/30/19 08/30/19 Range/Units 05:45 09:30 11:43 WBC (4.8-10.8) K/uL Hgb (14.0-18.0) g/dL Hct (42-52) % Plt Count (130-400) K/uL Potassium 3.9 (3.5-5.1) mmol/L Glucose 243 H (70-99) mg/dl POC Glucose 167 H 156 H (70-99) mg/dl 08/30/19 08/30/19 08/31/19 Range/Units 16:17 20:15 00:17 WBC (4.8-10.8) K/uL Hgb (14.0-18.0) g/dL Hct (42-52) % Plt Count (130-400) K/uL Potassium (3.5-5.1) mmol/L Glucose (70-99) mg/dl POC Glucose 188 H 183 H 128 H (70-99) mg/dl 08/31/19 08/31/19 08/31/19 Range/Units 05:42 05:55 11:27 WBC (4.8-10.8) K/uL Hgb (14.0-18.0) g/dL Hct (42-52) % Plt Count (130-400) K/uL Potassium 3.7 (3.5-5.1) mmol/L Glucose 142 H (70-99) mg/dl POC Glucose 167 H 208 H (70-99) mg/dl 08/31/19 08/31/19 09/01/19 Range/Units 16:51 20:08 05:33 WBC 6.56 (4.8-10.8) K/uL Hgb 13.8 L (14.0-18.0) g/dL Hct 40.5 L (42-52) % Plt Count 120 L (130-400) K/uL Potassium (3.5-5.1) mmol/L Glucose (70-99) mg/dl POC Glucose 121 H 120 H (70-99) mg/dl 09/01/19 09/01/19 Range/Units 05:33 07:25 WBC (4.8-10.8) K/uL Hgb (14.0-18.0) g/dL Hct (42-52) % Plt Count (130-400) K/uL Potassium 4.2 (3.5-5.1) mmol/L Glucose 139 H (70-99) mg/dl POC Glucose 139 H (70-99) mg/dl BMP 09/01/19 05:33 Sodium 140 Potassium 4.2 Chloride 108 H Carbon Dioxide 27 BUN 22 H Creatinine 1.06 Glucose 139 H Calcium 9.1 Medications Administered Aspirin (Ecotrin Ectab) 81 mg PO [facility] Stop: 09/29/19 08:59 Last Admin: 09/01/19 07:53 Dose: 81 mg Documented by: [id number] Admin: 08/31/19 08:06 Dose: 81 mg Documented by: [id number] Admin: 08/30/19 10:27 Dose: 81 mg Documented by: [id number] Atorvastatin Calcium (Lipitor) 20 mg PO [facility] Stop: 09/29/19 20:59 Last Admin: 08/31/19 20:14 Dose: 20 mg Documented by: [id number] Admin: 08/30/19 21:34 Dose: 20 mg Documented by: [id number] [facility]) [facility] Stop: 09/29/19 08:59 Last Admin: 09/01/19 07:53 Dose: 20 mg Documented by: [id number] Admin: 08/31/19 08:06 Dose: 20 mg Documented by: [id number] Admin: 08/30/19 10:28 Dose: 20 mg Documented by: [id number] Clopidogrel Bisulfate (Plavix) 75 mg PO [facility] Stop: 09/30/19 11:14 Last Admin: 09/01/19 07:55 Dose: 75 mg Documented by: [id number] Admin: 08/31/19 12:00 Dose: 75 mg Documented by: [id number] Donepezil HCl (Aricept) 5 mg PO [facility] Stop: 09/29/19 20:59 Last Admin: 08/31/19 20:15 Dose: 5 mg Documented by: [id number] Admin: 08/30/19 21:35 Dose: 5 mg Documented by: [id number] Fish Oil ([place]-3 (Purified Fish Oil)) 1 gm PO [facility] Stop: 09/29/19 08:59 Last Admin: 09/01/19 07:55 Dose: 1 gm Documented by: [id number] Admin: 08/31/19 08:06 Dose: 1 gm Documented by: [id number] Admin: 08/30/19 10:28 Dose: 1 gm Documented by: [id number] Gabapentin (Neurontin) 100 mg PO BID [facility] Stop: 09/29/19 08:59 Last Admin: 09/01/19 07:55 Dose: 100 mg Documented by: [id number] Admin: 08/31/19 20:16 Dose: 100 mg Documented by: [id number] Admin: 08/31/19 08:06 Dose: 100 mg Documented by: [id number] Admin: 08/30/19 21:34 Dose: 100 mg Documented by: [id number] Admin: 08/30/19 10:27 Dose: 100 mg Documented by: [id number] Heparin Sodium/Dextrose (Heparin Sodium/Dextrose) 25,000 units in 500 mls @ 32 mls/hr IV .[id number] [facility]; Protocol Stop: 09/29/19 13:14 Last Titration: 09/01/19 07:11 Dose: 1,600 units/hr, 32 mls/hr Documented by: [id number] Cosigned by: [id number] Titration: 09/01/19 01:13 Dose: 1,700 units/hr, 34 mls/hr Documented by: [id number] Cosigned by: [id number] Admin: 08/31/19 19:17 Dose: 1,700 units/hr, 34 mls/hr Documented by: [id number] Cosigned by: [id number] Titration: 08/31/19 19:17 Dose: 1,700 units/hr, 34 mls/hr Documented by: [id number] Cosigned by: [id number] Titration: 08/31/19 07:15 Dose: 1,700 units/hr, 34 mls/hr Documented by: [id number] Cosigned by: [id number] Titration: 08/31/19 06:44 Dose: 1,700 units/hr, 34 mls/hr Documented by: [id number] Cosigned by: [id number] Admin: 08/31/19 04:48 Dose: 1,700 units/hr, 34 mls/hr Documented by: [id number] Cosigned by: [id number] Titration: 08/31/19 04:48 Dose: 1,700 units/hr, 34 mls/hr Documented by: [id number] Cosigned by: [id number] Titration: 08/30/19 23:22 Dose: 1,700 units/hr, 34 mls/hr Documented by: [id number] Cosigned by: [id number] Titration: 08/30/19 21:57 Dose: 1,700 units/hr, 34 mls/hr Documented by: [id number] Cosigned by: [id number] Titration: 08/30/19 14:51 Dose: 1,700 units/hr, 34 mls/hr Documented by: [id number] Cosigned by: [id number] Admin: 08/30/19 14:10 Dose: 1,700 units/hr, 34 mls/hr Documented by: [id number] Cosigned by: [id number] Insulin Aspart (Novolog Flexpen) 0 units SC ACHS [facility] Stop: 09/30/19 11:29 Last Admin: 09/01/19 07:50 Dose: 2 units Documented by: [id number] Cosigned by: [id number] Admin: 08/31/19 20:16 Dose: Not Given Documented by: [id number] Cosigned by: [id number] Admin: 08/31/19 16:59 Dose: 5 units Documented by: [id number] Cosigned by: [id number] Admin: 08/31/19 12:01 Dose: 4 units Documented by: [id number] Cosigned by: [id number] Insulin Glargine (Lantus Solostar Pen) 0 - 10 units SC BID [facility]; Protocol Stop: 09/29/19 08:59 Last Admin: 09/01/19 07:56 Dose: 5 units Documented by: [id number] Cosigned by: [id number] Admin: 08/31/19 20:14 Dose: 5 units Documented by: [id number] Cosigned by: [id number] Admin: 08/31/19 08:08 Dose: 5 units Documented by: [id number] Cosigned by: [id number] Admin: 08/30/19 21:35 Dose: 10 units Documented by: [id number] Cosigned by: [id number] Admin: 08/30/19 10:45 Dose: 5 units Documented by: [id number] Cosigned by: [id number] Isosorbide Mononitrate (Imdur Extended Rel) [facility] Stop: 09/30/19 10:59 Last Admin: 09/01/19 07:54 Dose: 30 mg Documented by: [id number] Admin: 08/31/19 12:00 Dose: 30 mg Documented by: [id number] Lisinopril (Zestril) [facility] Stop: 09/29/19 08:59 Last Admin: 09/01/19 07:56 Dose: 2.5 mg Documented by: [id number] Admin: 08/31/19 08:06 Dose: 2.5 mg Documented by: [id number] Admin: 08/30/19 10:28 Dose: 2.5 mg Documented by: [id number] Metoprolol Succinate (Toprol Xl) 25 mg PO HS [facility] Stop: 09/29/19 20:59 Last Admin: 08/31/19 20:15 Dose: Not Given Documented by: [id number] Admin: 08/30/19 21:34 Dose: 25 mg Documented by: [id number] Multivitamins/Minerals (Multivitamin W/ Minerals Tab) [facility] Stop: 09/29/19 08:59 Last Admin: 09/01/19 07:54 Dose: 1 tab Documented by: [id number] Admin: 08/31/19 08:07 Dose: 1 tab Documented by: [id number] Admin: 08/30/19 10:28 Dose: 1 tab Documented by: [id number] Discontinued Medications Aspirin (Aspirin Chew) 162 mg PO NOW STA Stop: 08/30/19 05:47 Last Admin: 08/30/19 05:54 Dose: 162 mg Documented by: [id number] Heparin Sodium/Dextrose () 1 ea IV Q15M [facility]; Protocol Stop: 08/30/19 13:50 Last Admin: 08/30/19 14:48 Dose: Not Given Documented by: [id number] Admin: 08/30/19 14:05 Dose: Not Given Documented by: [id number] Sodium Chloride (Nss 1000ml) 1,000 mls @ 80 mls/hr IV [id number] [facility] Stop: 08/30/19 21:15 Last Infusion: 08/30/19 22:00 Dose: 0 mls/hr Documented by: [id number] Admin: 08/30/19 09:39 Dose: 80 mls/hr Documented by: [id number] Heparin Sodium (Porcine) 8,000 (units/ Syringe) 8 mls @ 10 mls/min IV NOW ONE Stop: 08/30/19 13:41 Last Admin: 08/30/19 14:10 Dose: 10 mls/min Documented by: [id number] Cosigned by: [id number] Insulin Aspart (Novolog Flexpen) 0 units SC Q6 [facility] Stop: 09/29/19 11:59 Last Admin: 08/31/19 05:58 Dose: 1 units Documented by: [id number] Cosigned by: [id number] Admin: 08/31/19 00:21 Dose: Not Given Documented by: [id number] Cosigned by: [id number] Admin: 08/30/19 17:29 Dose: 6 units Documented by: [id number] Cosigned by: [id number] Admin: 08/30/19 12:21 Dose: 1 units Documented by: [id number] Cosigned by: [id number] Labetalol HCl (Normodyne) 10 mg IV NOW STA Stop: 08/30/19 05:47 Last Admin: 08/30/19 05:54 Dose: 10 mg Documented by: [id number] Cosigned by: [id number] Metoprolol Tartrate (Lopressor) 12.5 mg PO ONE ONE Stop: 09/01/19 06:01 Last Admin: 09/01/19 05:45 Dose: Not Given Documented by: [id number] Potassium Chloride (Klor-Con M20) 40 meq PO NOW STA Stop: 08/31/19 08:23 Last Admin: 08/31/19 08:53 Dose: 40 meq Documented by: [id number] ECG Rate (beats per minute): 56 Rhythm: atrial flutter Findings: + RBBB (1) Hypertension Hypertension type: unspecified Qualified Code(s): I10 - Essential (primary) hypertension
[2019-09-01] MEDS: HEPARIN SODIUM/DEXTROSE 25,000 UNITS/500 ML BAG IV SCH (11:08)
--- NOTE | 2019-09-01 11:38 | Cardiology Progress Note ---
Date of Service September 01, 2019 Assessment & Plan (1) NSTEMI (non-ST elevated myocardial infarction): (2) Paroxysmal atrial fibrillation: (3) Sinus node dysfunction: (4) RBBB: (5) LAFB (left anterior fascicular block): (6) Mobitz type 1 second degree AV block: I had a long discussion with the patient regarding the pathophysiology of coronary artery disease and presentation with NSTEMI. Telemetry findings of paroxysmal atrial fibrillation, atrial tachycardia, sinus node dysfunction, and second-degree AV block Mobitz type I reviewed. Outpatient records document prior episodes of atrial fibrillation. Long-term anticoagulation avoided in the past due to significant fall risk and prior history of anemia. Patient currently tolerating aspirin, Plavix, and heparin. Baseline echocardiographic wall motion analysis suggests RCA territory infarction. Prior nuclear stress testing performed in 2018 suggestive of moderate ame-infarct ischemia involving the RCA territory. I have concerns that acute infarction/chronic RCA disease may be contributing to conduction abnormality/paroxysmal dysrhythmia. Risk versus benefit of further evaluation with cardiac catheterization discussed with patient at length. He is agreeable. We will proceed with cardiac catheterization with coronary angiography in a.m. 09/02/2019. I attempted to contact patient's to discuss plan of care. She is undergoing medical procedure today and was unavailable. I left a message with my contact information. Subjective Patient seen and examined at the bedside. Resting comfortably in chair. Denies recurrent chest discomfort since admission. Telemetry demonstrates episode of paroxysmal atrial fibrillation in the early a.m. without associated symptoms. Brief salvos of atrial tachycardia noted. Occasional second-degree AV block Mobitz type I (Wenckebach) in addition to sinus node dysfunction recorded. Patient adamantly denies any lightheadedness, dizziness, syncope, or near syncope. Per review of outpatient records, metoprolol reduced in the past to 12.5 mg daily due to marked sinus bradycardia and underlying conduction disease. No signs/symptoms of GI/ blood loss. Review of Systems Review of Systems: All systems reviewed & are unremarkable except as noted in HPI & below Physical Exam Constitutional: well developed and well nourished; no acute distress Respiratory: normal respiratory effort; no respiratory distress, no labored breathing, no retractions and does not use accessory muscles Auscultation: no crackles, no rales, no rhonchi and no wheezes Cardiovascular: Rate/Rhythm: + abnormal rhythm Heart Sounds: normal S1, normal S2 and + murmur (1/6 low pitched mid peaking systolic ejection murmur heard best at the right second intercostal space.) Vessels: femoral pulses present and radial pulses present; no JVD Extremities: + edema (Trace to mild bilateral pedal and ankle edema.) Gastrointestinal (Abdomen): Inspection/Auscultation: abdomen normal to inspection and normal bowel sounds; abdomen not distended Percussion/Palpation: abdomen soft; abdomen nontender, no guarding and abdomen not rigid Musculoskeletal: no cyanosis or clubbing, extremities motor strength 5/5 Skin: no rashes, warm and dry Neurologic: moves all extremities; no focal motor deficits Psychiatric: A+Ox3, euthymic affect Results & Data Vital Signs (Past 12 Hours) Vital Signs Temp Pulse Resp BP BP Pulse Ox 09/01/19 11:10 36.6 C 74 18 128/76 92 09/01/19 10:08 135/66 09/01/19 07:03 36.3 C L 61 19 168/88 H 95 09/01/19 05:23 75 151/81 H 95 09/01/19 04:13 36.3 C L 54 L 20 168/77 H 95 08/31/19 23:57 36.7 C 54 L 22 137/63 94
[2019-09-01 13:41] LABS: Partial Thromboplastin Time 54.4 Seconds (21.0-31.0)
--- NOTE | 2019-09-01 14:22 | Electrocardiogram Report ---
Test Reason : Blood Pressure : / mmHG Vent. Rate : 056 BPM Atrial Rate : 300 BPM P-R Int : 000 ms QRS Dur : 154 ms QT Int : 496 ms P-R-T Axes : 000 -58 000 degrees QTc Int : 478 ms Atrial fibrillation with slow ventricular response Left axis deviation Right bundle branch block Abnormal ECG When compared with ECG of 31-AUG-2019 12:33, Atrial fibrillation has replaced Sinus rhythm Confirmed by Ty Flores ([id number]) on 09/01/2019 2:22:10 PM Referred By: REFERRED SELF Confirmed By:Ty Flores
--- NOTE | 2019-09-01 14:24 | Electrocardiogram Report ---
Test Reason : Blood Pressure : / mmHG Vent. Rate : 066 BPM Atrial Rate : 000 BPM P-R Int : 000 ms QRS Dur : 144 ms QT Int : 494 ms P-R-T Axes : 000 -61 011 degrees QTc Int : 517 ms Atrial fibrillation Left axis deviation Right bundle branch block Abnormal ECG When compared with ECG of 01-SEP-2019 05:12, (unconfirmed) T wave inversion now evident in Anterior leads Confirmed by Ty Flores ([id number]) on 09/01/2019 2:23:28 PM Referred By: REFERRED SELF Confirmed By:Ty Flores
--- NOTE | 2019-09-01 15:59 | Communication Note ---
Date of Service: September 01, 2019 Dr Linder had attempted to reach pt's spouse by phone to update her this am. She called back and I updated her regarding changes in patient's heart rhythm and tentative plan to proceed with cardiac catheterization tomorrow. She had foot surgery today, but she states that she was counseled that she would be able to drive tomorrow, and she plans to be at the hospital in time for the procedure in am.
[2019-09-01] MEDS: DONEPEZIL HCL 5 MG TAB PO SCH (21:05)
[2019-09-01] MEDS: ATORVASTATIN 20 MG TAB PO SCH (21:06)
[2019-09-01] MEDS: METOPROLOL SUCC 25MG EXT REL TAB PO SCH (21:06)
[2019-09-02] MEDS: HEPARIN SODIUM/DEXTROSE 25,000 UNITS/500 ML BAG IV SCH (02:52)
[2019-09-02 04:43] LABS: Partial Thromboplastin Time 53.6 Seconds (21.0-31.0)
[2019-09-02] MEDS: CLOPIDOGREL BISULFATE 75 MG TAB PO SCH (08:24)
[2019-09-02] MEDS: CITALOPRAM 20 MG TAB PO SCH (08:24)
[2019-09-02] MEDS: ASPIRIN 81 MG ECTAB PO SCH (08:24)
[2019-09-02] MEDS: GABAPENTIN 100 MG CAP PO SCH ×2 (08:24→21:12)
[2019-09-02] MEDS: OMEGA-3 (PURIFIED FISH OIL) 1 GM CAP PO SCH (08:24)
[2019-09-02] MEDS: ISOSORBIDE MONO EXTENDED REL 30 MG TABCR PO SCH (08:24)
[2019-09-02] MEDS: CEROVITE ADV FORMULA TAB PO SCH (08:24)
[2019-09-02] MEDS: INSULIN ASPART 100 UNITS/ML 3 ML PEN SC SCH ×4 (08:25→21:11)
[2019-09-02] MEDS: INSULIN GLARGINE SOLOSTAR 100 UNITS/ML 3 ML PEN SC SCH ×2 (08:27→21:10)
--- NOTE | 2019-09-02 09:11 | Cardiology Progress Note ---
Date of Service September 02, 2019 Assessment & Plan (1) NSTEMI (non-ST elevated myocardial infarction): (2) Paroxysmal atrial fibrillation: (3) Sinus node dysfunction: (4) RBBB: (5) LAFB (left anterior fascicular block): (6) Mobitz type 1 second degree AV block: Intravenous heparin placed on hold. Risk, benefits, alternatives to cardiac catheterization discussed with both the patient and his . They are agreeable to proceed with diagnostic procedure and potential percutaneous intervention if indicated. Further recommendations pending result of coronary angiography and left heart catheterization. Subjective Patient seen and examined at the bedside. No significant pauses or bradycardia overnight. Toprol-XL reduced to 12.5 mg daily (outpatient dose). is present at bedside. Patient denies chest pain or shortness of breath. No signs/symptoms of GI/ blood loss. No recurrent atrial fibrillation. Review of Systems Review of Systems: All systems reviewed & are unremarkable except as noted in HPI & below Physical Exam Constitutional: well developed and well nourished; no acute distress Respiratory: normal respiratory effort; no respiratory distress, no labored breathing, no retractions and does not use accessory muscles Auscultation: no crackles, no rales, no rhonchi and no wheezes Cardiovascular: Rate/Rhythm: + abnormal rhythm Heart Sounds: normal S1, normal S2 and + murmur (1/6 low pitched mid peaking systolic ejection murmur heard best at the right second intercostal space.) Vessels: femoral pulses present and radial pulses present; no JVD Extremities: + edema (Trace bilateral pedal and ankle edema. +RLE statis changes) Gastrointestinal (Abdomen): Inspection/Auscultation: abdomen normal to inspection and normal bowel sounds; abdomen not distended Percussion/Palpation: abdomen soft; abdomen nontender, no guarding and abdomen not rigid Musculoskeletal: no cyanosis or clubbing, extremities motor strength 5/5 Skin: no rashes, warm and dry Neurologic: moves all extremities; no focal motor deficits Psychiatric: A+Ox3, euthymic affect Results & Data Vital Signs (Past 12 Hours) Vital Signs Temp Pulse Pulse Resp BP BP Pulse Ox 09/02/19 07:09 36.8 C 57 L 20 163/91 H 95 09/02/19 03:55 36.4 C L 50 L 18 139/75 96 09/01/19 23:53 36.7 C 58 L 18 150/65 H 92 09/01/19 23:14 73
[2019-09-02] MEDS ORDERED: NiCARDipine HCL INJ 2.5 MG/ML 10 ML AMP ONE (12:22)
[2019-09-02] MEDS ORDERED: fentaNYL citrate 100 MCG/2 ML VIAL ONE (12:22)
[2019-09-02] MEDS ORDERED: HEPARIN (PORCINE) 1000 UNIT/ML 10 ML (CATH LAB USE ONLY) ONE ×2 (12:22→14:12)
[2019-09-02] MEDS ORDERED: MIDAZOLAM HCL 1 MG/ML 2ML VIAL ONE (12:22)
[2019-09-02] MEDS ORDERED: NITROGLYCERIN/D5W 100MCG/ML 20ML SYR ONE (12:23)
[2019-09-02] MEDS ORDERED: CLOPIDOGREL BISULFATE 300 MG TAB ONE (14:46)
--- NOTE | 2019-09-02 14:49 | Post Anesthesia Assessment ---
Date of Service September 02, 2019 Post Sedation Assessment Vital Signs Temp Pulse Pulse Resp BP BP Pulse Ox 09/02/19 11:09 97.7 F 57 L 19 173/83 H 94 09/02/19 08:00 48 L 09/02/19 07:09 98.2 F 57 L 20 163/91 H 95 09/02/19 03:55 97.5 F L 50 L 18 139/75 96 09/01/19 23:53 98.1 F 58 L 18 150/65 H 92 09/01/19 23:14 73 09/01/19 19:46 97.7 F 66 19 125/77 91 09/01/19 15:12 97.5 F L 61 20 134/72 94 Recovery Score Activity: Moves 4 extremities Respiration: Deep Breath/Cough Circulation: +/-20% PreAnes Value Consciousness: Fully Awake Oxygen Saturation: O2 needed for >90% Discharge Sedation Level of Care: Fast Track Phase II Post Sedation Plan On clinical assessment, the patient appears to have tolerated the sedation without complications. Patient is recovering as anticipated. Patient will continue to be monitored by nursing and may be discharged when sedation discharge criteria are met per below protocol. Upon Completions of procedure up to 15 minutes continue every 5 minute vital signs and the P.A.R. score; then discharge to a Phase I or Fast Track to Phase II per the following guidelines: * Discharge Patient to appropriate Phase II area if PAR is 8 or greater or return to pre- procedure baseline. The post - procedure orders will be as directed. * If PAR score is less than 8 or not return to pre-procedure baseline then patient will follow Phase I monitoring till PAR is reached for Phase II. The Phase I may be done in procedure room or may call to secure a Phase I area. * If naloxone or flumazenil are used for reversal, hold in Phase I for continued monitoring from when last reversal dose was given for a minimum of 60 minutes or longer pending the nurse and/or physician discretion of patient condition before discharge to Phase II. Please call the Sedation Physician to re-evaluate and complete post-note for discharge to Phase II area. Do NOT discharge from procedure sedation or Phase 1 until post- sedation eval uation note is complete by procedure /sedation MD Sedation Discharge Instructions to be given to the patient at discharge to home.
--- NOTE | 2019-09-02 14:49 | Pre Anesthesia Assessment ---
Date of Service September 02, 2019 Pre Sedation Assessment Vital Signs Temp Pulse Pulse Resp BP BP Pulse Ox 09/02/19 11:09 97.7 F 57 L 19 173/83 H 94 09/02/19 08:00 48 L 09/02/19 07:09 98.2 F 57 L 20 163/91 H 95 09/02/19 03:55 97.5 F L 50 L 18 139/75 96 09/01/19 23:53 98.1 F 58 L 18 150/65 H 92 09/01/19 23:14 73 09/01/19 19:46 97.7 F 66 19 125/77 91 09/01/19 15:12 97.5 F L 61 20 134/72 94 Cardiovascular RRR, no murmur, no edema Respiratory normal respiratory effort, lungs clear to auscultation Pre-Sedation Airway Assessment Smoking Status: Former smoker Hx Sleep Apnea: Yes Hx Difficult Intubation: No Short, Thick Neck: No Oral Cavity: + Dentures Mallampati Class: III ASA: ASA3 NPO Status Date of Last Intake of Fluids: 09/02/19 Time of Last Intake of Fluids: 08:00 Last Oral Intake of Fluids Comment: sips with pills Date of Last Intake of Solid Food: 09/01/19 Time of Last Intake of Solid Foods: 20:00 Procedure Planning Contraindications for Sedation: none Current Medications Reviewed: Yes Notes The planned sedation has been discussed with the patient. Informed Consent was obtained. I have identified the patient, determined the appropriateness of sedation and have assessed the patient immediately prior to the procedure. All medicine(s) and interventions are by my order.
--- NOTE | 2019-09-02 14:57 | Cardiac Catheterization ---
ACC Data: Deburring Technician Cardiac Status Clinical evaluation leading to the procedure CAD Presenation: Non STEMI Anginal Classification: CCS IV Heart Failure: No Cardiogenic Shock within 24 Hours: No Cardiac Arrest within 24 Hours: No Imaging Studies Past 6 Months: Yes Stress Studies Past 6 Months: No Diagnostic Physicians Name: Sukhdev De La O MD Status: Elective Closure Device Percutaneous Entry Location: Radial Closure Device: Radial Band Recommendations: PCI without planned CABG PCI Indication: PCI for high risk Non-KAL Lesion Segment Name: proximal OM2 Culprit Artery: Yes Stenosis Prior to Rx (%): 95 Chronic Total Occlusion: No IVUS: No FFR: No Pre-Procedure ADONIS Flow: 2 Previously Treated Lesion: No Lesion Complexity: Non-High/Non-C Lesion Length (mm): 15 Thrombus Present: Yes Bifurcation Lesion: Yes Guidewire Across Lesion: Stenosis Post-Procedure (%): 0 Post-Procedure ADONIS Flow: 3 Devices(s) Deployed: Yes Yes Lesion #2 Segment Name: mid RCA Culprit Artery: No Stenosis Prior to Rx (%): 99 Chronic Total Occlusion: Yes IVUS: No FFR: No Pre-Procedure ADONIS Flow: 1 Previously Treated Lesion: No Lesion Complexity: High/C Lesion Length (mm): 33 Thrombus Present: No Bifurcation Lesion: No Guidewire Across Lesion: Yes Stenosis Post-Procedure (%): 0 Post-Procedure ADONIS Flow: 3 Devices(s) Deployed: Yes Intraprocedure Events Significant Disection: No Perforation: No Cardiac Cath Procedure Full Procedure Date September 02, 2019 Pre-Procedure Diagnosis Pre-Procedure Diagnosis: Non STEMI AUC Score AUC Score: 8 Post-Procedure Diagnosis Post-Procedure Diagnosis: Severe CAD, Successful PCI and Normal Intracardiac Pressures Procedure(s) Performed Procedure(s) Performed: Coronary Angiography, Left Heart Cath and Drug Eluting Stent Grain Merchandiser Sukhdev De La O MD Lunch Truck Driver(s) Alla Estimated Blood Loss Estimated Blood Loss: 15 Medication(s) Medication(s): Clopidogrel, Fentanyl, Heparin, Lidocaine 1%, Nicardipine, Nitroglycerin and Versed Summary of Findings Indication: High risk NSTEMI, AV block Access: 6 Fr slender right radial artery Catheters: [place], JL4, EBU 3.75 guide, AR-1 guide Findings: LM -large-caliber vessel, luminal irregularities LAD -moderate caliber vessel, 60% proximal to mid stenosis. 40 to 50% distal stenosis prior to wrapping around apex. Large caliber first diagonal with 40% ostial stenosis. Circumflex -large caliber vessel, acute 95% mid segment stenosis extending into proximal OM 2. Small distal circumflex provides collaterals to right PLB. RCA -dominant, large caliber vessel, subtotal mid RCA occlusion with ADONIS I distal flow. LVEDP - 15 -- PCI of OM2 -- Antithrombotic therapy: Heparin, Clopidogrel Procedure: Left main cannulated with EBU 3.75 guide Core Java Engineer 50 wire passed across lesion into distal OM 2 Mid circumflex/proximal OM 2 lesion predilated with 2.5 compliant balloon With the aid of a telescope support catheter dilated lesion stented with 3.0 x 18 mm gasper drug-eluting Stent post-dilated with stent balloon Post procedure ADONIS 3 flow, stent well expanded with minimal residual stenosis and no apparent cardiac complications. PCI of subtotal RCA occlusion RCA cannulated with AR-1 guide Telescope support catheter placed to mid RCA Mid RCA subtotal occlusion crossed with Long whisper wire with support of 2.0 [id number] balloon Distal intraluminal position confirmed via injection through OTW balloon Whisper wire exchanged for mailman wire Mid RCA dilated with 2.0 compliant balloon and 3.0 NC balloon Mid RCA stented with 3.5 x 38 mm Gasper drug-eluting stent Stent postdilated with 3.5 NC balloon Post procedure ADONIS 3 flow, stent well expanded with minimal residual stenosis and no apparent cardiac complications. Arterial Closure: TR band Summary: 1. Severe multivessel coronary artery disease -95+% proximal OM 2 Mid RCA subtotal occlusion with ADONIS I distal flow and [id number] collaterals 60% proximal LAD stenosis at bifurcation with large first diagonal with 40% ostial stenosis 2. Normal intracardiac filling pressure 3. Successful PCI of mid circumflex into proximal OM 2 with single drug-eluting stent (3.0 x 18 mm [place]). 4. Successful PCI of mid RCA subtotal occlusion with single drug-eluting stent (3.5 x 38 mm [place]). Recommendations: To PCU for continued monitoring Reloaded with clopidogrel 300 mg in slabber light Continue dual-antiplatelet therapy for at least 1 year Continue statin, and ASCVD risk factor modification Consult cardiac Rehab Can consider FFR +/- PCI of proximal LAD/diagonal bifurcation if additional symptoms. Hemodynamics Rest Ao:: 130/67/93 Final Ao: 188/100/135 LV: 155/15 Recommendations Recommendations: PCI without planned CABG Specimens Specimens: None Radiation Exposure (mGy) 7034 Contrast (mls) 175 Fluids (cc crystalloids) Fluids (cc crystalloids): 200 Drains Drains: none Anesthesia moderate Procedural Complication(s) None Disposition PCU I attest to the content of the Intraoperative Record and any orders documented therein. Any exceptions are noted below. [facility] Card Cath Procedure Codes Cardiac Catheterization Procedure 1: Cardiovascular Cath Procedures: 14960 Coronaries and LHC (+/-LV) Moderate Sedation Procedure 1: Sedation/Anesthesia: 23505 Mod Sedation by the same physician;Init15 Min Child Age 5 & Up Procedure 2: Sedation/Anesthesia: 91773 Mod Sedation by the same physician; Ea [id number] Minutes Stenting Procedure 1: Cardiovascular Stent Procedures: 95705 Perc transluminal revascularization of chronic total occlusion, Procedure 2: Cardiovascular Stent Procedures: 63100 Ea addl branch of a major coronary artery PG Care Time/CCT Total # of Minutes Spent Total Time Spent with Patient: Total time spent is greater than 50% in coordination of care (as documented) at patient's floor/unit and/or counseling patient:
--- NOTE | 2019-09-02 15:41 | Post Operative Brief Note ---
Cardiology Brief Post Op Date of Surgery September 02, 2019 Pre & Post Diagnosis Operation Date: 09/02/19 08:00 <No data on this case meets the specified criteria> Procedure -- Pharmacy Sales Representative Sukhdev De La O MD Data Reporting Analyst Alla Estimated Blood Loss 15 Findings See Below LAD, 1st diagonal bifurcation - 70-80% Large OM2 95+% (likely acute culprit) Subtotal mid RCA occlusion with ADONIS 1 flow and left to right collaterals. Successful PCI of OM2 with single JACOB (3.0 x 18 [place]). Successful PCI of mid RCA with single JACOB (3.5 x 38 Tone). Anesthesia Type RN Sedation Complications none Disposition Disposition: PCU
[2019-09-02] MEDS ORDERED: SODIUM CHLORIDE 0.9% 1000ML 1,000 ML IV SCH (15:45)
--- NOTE | 2019-09-02 16:55 | Hospitalist Progress Note ---
Date of Service September 02, 2019 Assessment & Plan (1) NSTEMI (non-ST elevated myocardial infarction): Present on admission with chest pain Initial troponin 0.029 peaked at 1.89, then trending down to 1.160 EKG on admssion showed no ischemic changes Chol panel 131, LDL 68, HDL 33, Trig 151 Was starting on heparin drip S/P cardiac cath done today with successful stent placement of OM2 with single JACOB and mid RCA with single JACOB Continue dual-antiplatelet therapy for at least with ASA and plavix Continue atorvastatin, metoprolol, lisinopril Echo on 08/30/2019 showed EF 35 to 60%, mild aortic valve stenosis, mild basal inferior wall hypokinesis, otherwise normal wall motion. (2) Paroxysmal atrial fibrillation: Rate controlled with metoprolol hx of atrial tachycardia in past per EPIC IV heparin discontinued [id number] 5 (age, HTN, CAD, T2DM) cardiology on board Continue monitor in tele (3) Hypertension: BP has been fluctuated Will increase lisinopril to 5 mg continue metoprolol and Imdur 30 mg Continue monitor BP (4) CAD (coronary artery disease): Hx of NSTEMI managed medically 07/2017 22 to acute sepsis S/P cardiac cath with successful stents placement Continue ASA, statin, metoprolol, lisinopril, Plavix & Imdur Continue monitor (5) DM (diabetes mellitus): A1C 7.7 on 08/16/2019 On metformin and Jardiance as outpatient hold outpt regimen continue lantus/novolog per protocol Continue monitor BS (6) Hyperlipidemia: continue statin (7) Sleep apnea: CPAP at HS (8) Diabetic neuropathy: continue gabapentin (9) DVT prophylaxis: IV heparin D/C today after cardiac cath Consider to add on subq anticoagulant if stays in the hospital for another 24hrs Disposition Continue monitor in tele Plan to discharge home tomorrow Admission and Anticipated Discharge Date Admission Date: August 30, 2019 Subjective Pt was seen and examined Lying in bed with no distress with at bedside Pt had cardiac cath done today with successful stent placement he said that he feels fine Denies any chest pain, palpitation, dizziness and SOB Physical Exam Physical Exam: General- No acute distress Head- atraumatic Eyes- PERRL, EOMI, ENT- oropharynx clear Neck- supple, no JVD Lungs- clear to auscultation Heart- regular rhythm Abdomen- normal bowel sounds, soft, nontender Extremities- no calf tenderness, No hematoma in right wrist area, +edema Neuro- alert, oriented x 3; PERRL, EOMI; no facial palsy; no dysarthria Skin- warm & dry Results & Data ([facility]) Vital Signs (Past 12 Hours) Vital Signs Temp Pulse Pulse Pulse Resp BP Pulse Ox 09/02/19 15:05 64 18 172/97 H 100 09/02/19 14:50 53 L 16 180/95 H 100 09/02/19 11:09 36.5 C 57 L 19 173/83 H 94 09/02/19 08:00 48 L 09/02/19 07:09 36.8 C 57 L 20 163/91 H 95 (1) Hypertension Hypertension type: unspecified Qualified Code(s): I10 - Essential (primary) hypertension
[2019-09-02] MEDS: DONEPEZIL HCL 5 MG TAB PO SCH (21:11)
[2019-09-02] MEDS: METOPROLOL SUCC 25MG EXT REL TAB PO SCH (21:13)
[2019-09-02] MEDS: ATORVASTATIN 20 MG TAB PO SCH (21:13)
[2019-09-03 07:36] LABS: Basophils # (auto) 0.01 K/uL (0-0.2); Basophils % (auto) 0.2 %; Eosinophils # (auto) 0.14 K/uL (0-0.5); Eosinophils % (auto) 2.6 %; Hematocrit (blood only) 41.2 % (42-52); Hemoglobin 13.7 g/dL (14.0-18.0); Immature Granulocytes # (auto) 0.03 K/uL (0.00-0.02); Immature Granulocytes % (auto) 0.6 %; Lymphocytes # (auto) 1.37 K/uL (1.2-3.4); Lymphocytes % (auto) 25.8 %; Mean Corpuscular Hemoglobin 29.5 pg (25-34); Mean Corpuscular Hgb Conc 33.3 g/dL (32-36); Mean Corpuscular Volume 88.8 fL (80-100); Mean Platelet Volume 10.3 fL (7.4-10.4); Monocytes # (auto) 0.63 K/uL (0.11-0.59); Monocytes % (auto) 11.9 %; Neutrophils # (auto) 3.13 K/uL (1.4-6.5); Neutrophils % (auto) 58.9 %; Platelet Count 114 K/uL (130-400); RDW Coefficient of Variation 14.8 % (11.5-14.5); RDW Standard Deviation 47.6 fL (36.4-46.3); Red Blood Count 4.64 M/uL (4.7-6.1); White Blood Count 5.31 K/uL (4.8-10.8)
[2019-09-03 08:05] LABS: BUN Creatinine Ratio 21.5 (10-20); Calcium 8.5 mg/dl (8.5-10.1); Creatinine Clr Calc Pharmacy 72.6 ml/min; Est GFR (African American) 79.7; Est GFR (Non-African American) 68.8
[2019-09-03] MEDS: CLOPIDOGREL BISULFATE 75 MG TAB PO SCH (08:39)
[2019-09-03] MEDS: OMEGA-3 (PURIFIED FISH OIL) 1 GM CAP PO SCH (08:40)
[2019-09-03] MEDS: GABAPENTIN 100 MG CAP PO SCH (08:40)
[2019-09-03] MEDS: CEROVITE ADV FORMULA TAB PO SCH (08:40)
[2019-09-03] MEDS: ISOSORBIDE MONO EXTENDED REL 30 MG TABCR PO SCH (08:41)
[2019-09-03] MEDS: CITALOPRAM 20 MG TAB PO SCH (08:41)
[2019-09-03] MEDS: ASPIRIN 81 MG ECTAB PO SCH (08:41)
[2019-09-03] MEDS: INSULIN GLARGINE SOLOSTAR 100 UNITS/ML 3 ML PEN SC SCH (08:43)
[2019-09-03] MEDS: INSULIN ASPART 100 UNITS/ML 3 ML PEN SC SCH ×2 (08:45→12:21)
[2019-09-03] MEDS ORDERED: lisinopriL 5 MG TAB PO SCH (09:00)
--- NOTE | 2019-09-03 09:48 | Cardiology Progress Note ---
Date of Service September 03, 2019 Assessment & Plan (1) NSTEMI (non-ST elevated myocardial infarction): (2) Paroxysmal atrial fibrillation: (3) Sinus node dysfunction: (4) RBBB: (5) LAFB (left anterior fascicular block): (6) Mobitz type 1 second degree AV block: Complex 84-year-old patient admitted with NSTEMI status post cardiac catheterization 09/02/2019 demonstrating severe multivessel coronary disease. Successful drug-eluting stent implantation to the right coronary artery and o btuse marginal branch vessel performed without complication. Residual 60% proximal LAD stenosis noted. Patient has recovered well without recurrent angina. Recommend continuing dual antiplatelet therapy uninterrupted for minimum of 6 months post drug-eluting stent implantation. Patient is not a candidate for long-term anticoagulation due to fall risk as previously documented. Increase atorvastatin to 40 mg daily. Agree with titration of lisinopril to 5 mg daily. Continue isosorbide monohydrate 30 mg daily. Discontinue Toprol-XL secondary to intermittent bradycardia and underlying conduction disease including first-degree AV block, right bundle branch block, left anterior fascicular block and occasional second-degree AV block Mobitz type I. Electrophysiology consultation recommended to consider pacemaker implantation. Patient is anxious for discharge. Will arrange consultation in the outpatient setting as patient remains asymptomatic. Recommend outpatient cardiology follow-up in 2 weeks. No further inpatient cardiology testing or intervention at this time. Subjective Patient seen and examined the bedside. Left heart catheterization with coronary angiography performed yesterday demonstrating multivessel coronary disease. Report summary listed below. Cardiac catheterization report summary: 1. Severe multivessel coronary artery disease -95+% proximal OM 2 Mid RCA subtotal occlusion with ADONIS I distal flow and [id number] collaterals 60% proximal LAD stenosis at bifurcation with large first diagonal with 40% ostial stenosis 2. Normal intracardiac filling pressure 3. Successful PCI of mid circumflex into proximal OM 2 with single drug-eluting stent (3.0 x 18 mm Tone). 4. Successful PCI of mid RCA subtotal occlusion with single drug-eluting stent (3.5 x 38 mm Tone). Patient offers no complaints today. Telemetry demonstrates sinus rhythm with first-degree AV block, occasional Mobitz type I second-degree AV block. No evidence of recurrent atrial fibrillation. No significant pauses or symptomatic bradycardia recorded. Patient denies lightheadedness, dizziness, syncope, or near syncope. Tolerating current medications. No signs/symptoms of GI/ blood loss. Offers no other concerns/complaints at this time. Review of Systems Review of Systems: All systems reviewed & are unremarkable except as noted in HPI & below Physical Exam Constitutional: well developed and well nourished; no acute distress Respiratory: normal respiratory effort; no respiratory distress, no labored breathing, no retractions and does not use accessory muscles Auscultation: no crackles, no rales, no rhonchi and no wheezes Cardiovascular: Rate/Rhythm: + abnormal rhythm Heart Sounds: normal S1, normal S2 and + murmur (1/6 low pitched mid peaking systolic ejection murmur he tushar best at the right second intercostal space.) Vessels: femoral pulses present and radial pulses present (Right anterior wrist without significant ecchymosis. Right radial pulse 3/4.); no JVD Extremities: + edema (Trace bilateral pedal and ankle edema. +RLE statis changes) Gastrointestinal (Abdomen): Inspection/Auscultation: abdomen normal to inspection and normal bowel sounds; abdomen not distended Percussion/Palpation: abdomen soft; abdomen nontender, no guarding and abdomen not rigid Musculoskeletal: no cyanosis or clubbing, extremities motor strength 5/5 Skin: no rashes, warm and dry Neurologic: moves all extremities; no focal motor deficits Psychiatric: A+Ox3, euthymic affect Results & Data Vital Signs (Past 12 Hours) Vital Signs Temp Pulse Pulse Pulse Resp BP Pulse Ox 09/03/19 07:56 36.9 C 63 18 168/89 H 99 09/03/19 04:07 36.6 C 58 L 20 156/84 H 96 09/03/19 03:05 46 L 16 95 09/03/19 00:08 36.6 C 59 L 19 145/88 H 96 09/03/19 00:00 56 L 09/02/19 21:45 57 L 18 96
--- NOTE | 2019-09-03 12:09 | Hospitalist Progress Note ---
Date of Service September 03, 2019 Assessment & Plan (1) NSTEMI (non-ST elevated myocardial infarction): Present on admission with chest pain Initial troponin 0.029 peaked at 1.89, then trending down to 1.160 EKG on admssion showed no ischemic changes Chol panel 131, LDL 68, HDL 33, Trig 151 Was starting on heparin drip S/P cardiac cath done on 09/02/19 with successful stent placement of OM2 with single JACOB and mid RCA with single JACOB Continue dual-antiplatelet therapy for at least with ASA and plavix Continue atorvastatin, Lisinopril increased to 5mg Echo on 08/30/2019 showed EF 35 to 60%, mild aortic valve stenosis, mild basal inferior wall hypokinesis, otherwise normal wall motion. Case discussed with cardiology Dr. Hartman recommended to discontinue Toprol-XL secondary to intermittent bradycardia and underlying conduction disease including first-degree AV block, right bundle branch block, left anterior fascicular block and occasional second-degree AV block Mobitz type I. Pt will need outpatient Electrophysiology consultation to eval for pacemaker implantation. Ok from cardiology standpoint to discharge home today Follow up with cardiology in 2 weeks (2) Paroxysmal atrial fibrillation: Rate controlled with metoprolol hx of atrial tachycardia in past per EPIC IV heparin discontinued Not a candidate for long-term anticoagulation due to fall risk as previously documented. [id number] 5 (age, HTN, CAD, T2DM) cardiology on board Metoprolol discontinued due to bradycardia and second degree AV block Mobitz type 1 Stable from cardiology standpoint (3) Hypertension: BP improved Continue lisinopril to 5 mg continue Imdur 30 mg Metoprolol discontinued Continue monitor BP (4) CAD (coronary artery disease): Hx of NSTEMI managed medically 07/2017 2/2 to acute sepsis S/P cardiac cath with successful stents placement Continue ASA, statin, lisinopril, Plavix & Imdur Continue monitor (5) DM (diabetes mellitus): A1C 7.7 on 08/16/2019 On metformin and Jardiance as outpatient hold outpt regimen continue lantus/novolog per protocol Continue monitor BS (6) Hyperlipidemia: continue statin (7) Sleep apnea: CPAP at HS (8) Diabetic neuropathy: continue gabapentin (9) DVT prophylaxis: IV heparin D/C today after cardiac cath Consider to add on subq anticoagulant if stays in the hospital for another 24hrs Disposition Plan to discharge home today Follow up with cardiology in 2 weeks Follow up with Dr. Saldana on 09/09@ 12:45 PM Admission and Anticipated Discharge Date Admission Date: August 30, 2019 Subjective Pt was seen and examined Sitting in chair with no distress Pt said that he feels fine Denies any chest pain, palpitation, dizziness and SOB Physical Exam Physical Exam: General- No acute distress Head- atraumatic Eyes- PERRL, EOMI, ENT- oropharynx clear Neck- supple, no JVD Lungs- clear to auscultation Heart- regular rhythm Abdomen- normal bowel sounds, soft, nontender Extremities- no calf tenderness, No hematoma in right wrist area, +edema Neuro- alert, oriented x 3; PERRL, EOMI; no facial palsy; no dysarthria Skin- warm & dry Results & Data ([facility]) Vital Signs (Past 12 Hours) Vital Signs Temp Pulse Pulse Pulse Pulse Resp BP 09/03/19 11:33 36.4 C L 84 19 139/74 09/03/19 07:56 36.9 C 63 18 168/89 H 09/03/19 04:07 36.6 C 58 L 20 156/84 H 09/03/19 03:05 46 L 16 09/03/19 00:08 36.6 C 59 L 19 145/88 H Pulse Ox 09/03/19 11:33 96 09/03/19 07:56 99 09/03/19 04:07 96 09/03/19 03:05 95 09/03/19 00:08 96 (1) Hypertension Hypertension type: unspecified Qualified Code(s): I10 - Essential (primary) hypertension
--- NOTE | 2019-09-03 19:42 | Electrocardiogram Report ---
Test Reason : Blood Pressure : / mmHG Vent. Rate : 050 BPM Atrial Rate : 050 BPM P-R Int : 234 ms QRS Dur : 146 ms QT Int : 520 ms P-R-T Axes : 074 -52 005 degrees QTc Int : 474 ms Sinus bradycardia with 1st degree A-V block Left anterior fascicular block Right bundle branch block Trifascicular block Abnormal ECG When compared with ECG of 01-SEP-2019 06:30, Sinus rhythm has replaced Atrial fibrillation T wave inversion no longer evident in Anterior leads Confirmed by Jay Barron ([id number]) on 09/03/2019 7:41:59 PM Referred By: REFERRED SELF Confirmed By:Jay Barron
[2019-09-03] MEDS ORDERED: ATORVASTATIN 40 MG TAB PO SCH (21:00)
--- NOTE | 2019-09-04 17:13 | Discharge Summary ---
Date of Service September 03, 2019 Admission HPI Per Admitting Provider This is an 84-year-old male who has significant PMH of CAD, HTN, HLD, T2DM, diabetic neuropathy, chronic RBBB, diastolic CHF, history of PAF, history of RLE DVT, MARKO on CPAP, history of prostate cancer status post radiation, history of invasive adenocarcinoma colon cancer status post partial colectomy, dementia who presents to [facility] ED secondary to chest pain that started at 4 AM. is at bedside. Patient was sitting up drinking coffee and eating a piece of cake at approximately 3 AM. Approximately 30 minutes to 1 hour later he developed left- sided chest discomfort, 6/10, described as dull ache, nonradiating, never had in past, nothing made worse, improved with ASA, had associated belching but denies diaphoresis, shortness breath, palpitations, nausea or vomiting. + associated belching per . He denies any recent illness, fever, chills, sweats, lightheadedness, dizziness, shortness breath at rest, cough, hemoptysis, nausea, vomiting, abdominal pain, change in bowel or urinary habits. He reports having, "mild heart attack," in past when in hospital for colon cancer surgery. At that time he denied having any chest pain. He denies any prior history of indigestion or heartburn. He states he does not check his blood pressure regularly at home but does check his blood sugars. Blood sugars mostly in the 170s. He does elicit that yesterday when he went to [place] for a meeting he had a transient 5-minute episode of blurred vision which resolved without any other associated symptoms. He did not take any of his morning medications. Per his he is fairly inactive especially given winter months. He denies any associated chest pain or shortness of breath with exertion; however his exertion is minimal. He lives in double wide trailer and will get up from recliner to walk about house but otherwise no physical activity. In ED patient was significantly hypertensive upon arrival. Initial BP was 168/129. He was otherwise hemodynamically stable. Initial troponin was detectable at 0.029 but WNL. EKG revealed chronic right BBB and bifascicular block. No acute ischemic changes noted. CBC was relatively unremarkable. He did have mild elevation BUN 25 creatinine 1.28 and glucose 243. He was asymptomatic on arrival and did not receive nitro. Did receive 162mg ASA and 10mg IV labetalol. Admission Exam Per Admitting Provider Constitutional: WD/WN, elderly, M, vitals as above, NAD, sitting up in bed, pleasant, conversing easily Head: Normocephalic, Atraumatic Eyes: PERRL, conjunctivae normal, anicteric sclerae ENMT: external ear and nose normal, oropharynx normal Neck: trachea midline, no thyromegaly normal visual inspection Respiratory: normal respiratory effort, lungs clear to auscultation, no wheeze, rales, rhonchi. Normal insp/exp effort, no accessory muscle use Cardiovascular: RRR, no murmur,b/l venous stasis changes R> L, trace b/l pre tibial edema Vessels: no JVD or carotid bruit Chest: normal inspection of chest Abdomen: normal bowel sounds, soft, nontender, no hepatosplenomegaly Musculoskeletal: no cyanosis or clubbing, extremities motor strength 5/5 Skin: no rashes, warm and dry normal turgor Neurologic: PERRL, EOMI, accommodation nl, no face palsy, no dysarthria CN's II-XI intact bilaterally and moves all extremities Psychiatric: A+Ox3, euthymic affect Lymphatic: no cervical or axillary lymphadenopathy : deferred Principal Diagnosis NSTEMI (non-ST elevated myocardial infarction) Paroxysmal atrial fibrillation Hypertension CAD (coronary artery disease) DM (diabetes mellitus) Hyperlipidemia Sleep apnea Diabetic neuropathy Discharge Exam General- No acute distress Head- atraumatic Eyes- PERRL, EOMI, ENT- oropharynx clear Neck- supple, no JVD Lungs- clear to auscultation Heart- regular rhythm Abdomen- normal bowel sounds, soft, nontender Extremities- no calf tenderness, No hematoma in right wrist area, +edema Neuro- alert, oriented x 3; PERRL, EOMI; no facial palsy; no dysarthria Skin- warm & dry Discharge Data Allergies Allergy/AdvReac Type Severity Reaction Status Date / Time hydrocodone Allergy Intermediate MAKES PT Verified 08/30/19 05:39 HALLUCINATE meperidine Allergy Intermediate psych Verified 08/30/19 05:39 complications oxycodone Allergy Intermediate MAKES PT Verified 08/30/19 05:39 HALLUCINATES Consultations 08/30/19 07:35 ED Decision to Admit Stat 08/30/19 08:33 Consult Cardiology Routine 09/02/19 11:17 Consult Cardiac Catheterization Routine XR chest 1V portable CLINICAL HISTORY: Atypical chest pain COMPARISON STUDY: August 03, 2017 FINDINGS: The heart is enlarged. There is stable aortic tortuosity/ectasia. There is no lobar consolidation. There is no failure. There are no pleural effusions. There are linear opacities at both lung bases consistent with atelectasis. There are postsurgical changes of bilateral shoulder arthroplasties[ IMPRESSION: No active disease in the chest. ACT 112: Negative or not required by law. Electronically signed by: Yung Roberto M.D. 08/30/2019 6:28 AM Dictated: 08/30/19626 Transcribed: 08/30/19626 ACC Data: Box Turner Cardiac Status Clinical evaluation leading to the procedure CAD Presenation: Non STEMI Anginal Classification: CCS IV Heart Failure: No Cardiogenic Shock within 24 Hours: No Cardiac Arrest within 24 Hours: No Imaging Studies Past 6 Months: Yes Stress Studies Past 6 Months: No Diagnostic Physicians Name: Sukhdev De La O MD Status: Elective Closure Device Percutaneous Entry Location: Radial Closure Device: Radial Band Recommendations: PCI without planned CABG PCI Indication: PCI for high risk Non-KAL Lesion Segment Name: proximal OM2 Culprit Artery: Yes Stenosis Prior to Rx (%): 95 Chronic Total Occlusion: No IVUS: No FFR: No Pre-Procedure ADONIS Flow: 2 Previously Treated Lesion: No Lesion Complexity: Non-High/Non-C Lesion Length (mm): 15 Thrombus Present: Yes Bifurcation Lesion: Yes Guidewire Across Lesion: Stenosis Post-Procedure (%): 0 Post-Procedure ADONIS Flow: 3 Devices(s) Deployed: Yes Yes Lesion #2 Segment Name: mid RCA Culprit Artery: No Stenosis Prior to Rx (%): 99 Chronic Total Occlusion: Yes IVUS: No FFR: No Pre-Procedure ADONIS Flow: 1 Previously Treated Lesion: No Lesion Complexity: High/C Lesion Length (mm): 33 Thrombus Present: No Bifurcation Lesion: No Guidewire Across Lesion: Yes Stenosis Post-Procedure (%): 0 Post-Procedure ADONIS Flow: 3 Devices(s) Deployed: Yes Intraprocedure Events Significant Disection: No Perforation: No Cardiac Cath Procedure Full Procedure Date September 02, 2019 Pre-Procedure Diagnosis Pre-Procedure Diagnosis: Non STEMI AUC Score AUC Score: 8 Post-Procedure Diagnosis Post-Procedure Diagnosis: Severe CAD, Successful PCI and Normal Intracardiac Pressures Procedure(s) Performed Procedure(s) Performed: Coronary Angiography, Left Heart Cath and Drug Eluting Stent Shoe Laster Sukhdev De La O MD Capital Markets Specialist(s) Alla Estimated Blood Loss Estimated Blood Loss: 15 Medication(s) Medication(s): Clopidogrel, Fentanyl, Heparin, Lidocaine 1%, Nicardipine, Nitroglycerin and Versed Summary of Findings Indication: High risk NSTEMI, AV block Access: 6 Fr slender right radial artery Catheters: [place], JL4, EBU 3.75 guide, AR-1 guide Findings: LM -large-caliber vessel, luminal irregularities LAD -moderate caliber vessel, 60% proximal to mid stenosis. 40 to 50% distal stenosis prior to wrapping around apex. Large caliber first diagonal with 40% ostial stenosis. Circumflex -large caliber vessel, acute 95% mid segment stenosis extending into proximal OM 2. Small distal circumflex provides collaterals to right PLB. RCA -dominant, large caliber vessel, subtotal mid RCA occlusion with ADONIS I distal flow. LVEDP - 15 -- PCI of OM2 -- Antithrombotic therapy: Heparin, Clopidogrel Procedure: Left main cannulated with EBU 3.75 guide Package Liner 50 wire passed across lesion into distal OM 2 Mid circumflex/proximal OM 2 lesion predilated with 2.5 compliant balloon With the aid of a telescope support catheter dilated lesion stented with 3.0 x 18 mm gasper drug-eluting Stent post-dilated with stent balloon Post procedure ADONIS 3 flow, stent well expanded with minimal residual stenosis and no apparent cardiac complications. PCI of subtotal RCA occlusion RCA cannulated with AR-1 guide Telescope support catheter placed to mid RCA Mid RCA subtotal occlusion crossed with Long whisper wire with support of 2.0 [id number] balloon Distal intraluminal position confirmed via injection through OTW balloon Whisper wire exchanged for mailman wire Mid RCA dilated with 2.0 compliant balloon and 3.0 NC balloon Mid RCA stented with 3.5 x 38 mm [place] drug-eluting stent Stent postdilated with 3.5 NC balloon Post procedure ADONIS 3 flow, stent well expanded with minimal residual stenosis and no apparent cardiac complications. Arterial Closure: TR band Summary: 1. Severe multivessel coronary artery disease -95+% proximal OM 2 Mid RCA subtotal occlusion with ADONIS I distal flow and [id number] collaterals 60% proximal LAD stenosis at bifurcation with large first diagonal with 40% ostial stenosis 2. Normal intracardiac filling pressure 3. Successful PCI of mid circumflex into proximal OM 2 with single drug-eluting stent (3.0 x 18 mm Gasper). 4. Successful PCI of mid RCA subtotal occlusion with single drug-eluting stent (3.5 x 38 mm Gasper). 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 Hemodynamics Rest Ao:: 130/67/93 Final Ao: 188/100/135 LV: 155/15 Recommendations Recommendations: PCI without planned CABG Specimens Specimens: None Radiation Exposure (mGy) 7034 Contrast (mls) 175 Fluids (cc crystalloids) Fluids (cc crystalloids): 200 Drains Drains: none Anesthesia moderate Procedural Complication(s) None Disposition PCU I attest to the content of the Intraoperative Record and any orders documented therein. Any exceptions are noted below. Procedures Performed Operation Date: 09/02/19 08:00 Actual Procedures s Cineradiography w/Routine Exam - Berto De La O MD p Drug Eluting Stent SGl Vessel - Berto De La O MD s Drug Eluting Stent each ADDTL Vessel - Berto De La O MD s Cath, Left with Cors and Vent - Berto De La O MD Ordered Studies 09/02/19 11:57 CL Cath Imgs for PACS use only Routine Hospital Course (1) NSTEMI (non-ST elevated myocardial infarction): Present on admission with chest pain Initial troponin 0.029 peaked at 1.89, then trending down to 1.160 EKG on admssion showed no ischemic changes Chol panel 131, LDL 68, HDL 33, Trig 151 Was starting on heparin drip S/P cardiac cath done on 09/02/19 with successful stent placement of OM2 with s jonatan JACOB and mid RCA with single JACOB Continue dual-antiplatelet therapy for at least with ASA and plavix Continue atorvastatin, Lisinopril increased to 5mg Echo on 08/30/2019 showed EF 35 to 60%, mild aortic valve stenosis, mild basal inferior wall hypokinesis, otherwise normal wall motion. Case discussed with cardiology Dr. Hartman recommended to discontinue Toprol-XL secondary to intermittent bradycardia and underlying conduction disease including first-degree AV block, right bundle branch block, left anterior fascicular block and occasional second-degree AV block Mobitz type I. Pt will need outpatient Electrophysiology consultation to eval for pacemaker implantation. Ok from cardiology standpoint to discharge home today Follow up with cardiology in 2 weeks (2) Paroxysmal atrial fibrillation: Rate controlled with metoprolol hx of atrial tachycardia in past per EPIC IV heparin discontinued Not a candidate for long-term anticoagulation due to fall risk as previously documented. [id number] 5 (age, HTN, CAD, T2DM) cardiology on board Metoprolol discontinued due to bradycardia and second degree AV block Mobitz type 1 Stable from cardiology standpoint (3) Hypertension: BP improved Continue lisinopril to 5 mg continue Imdur 30 mg Metoprolol discontinued Continue monitor BP (4) CAD (coronary artery disease): Hx of NSTEMI managed medically 07/2017 to acute sepsis S/P cardiac cath with successful stents placement Continue ASA, statin, lisinopril, Plavix & Imdur Continue monitor (5) DM (diabetes mellitus): A1C 7.7 on 08/16/2019 On metformin and Jardiance as outpatient hold outpt regimen continue lantus/novolog per protocol Continue monitor BS (6) Hyperlipidemia: continue statin (7) Sleep apnea: CPAP at HS (8) Diabetic neuropathy: continue gabapentin (9) DVT prophylaxis: IV heparin D/C today after cardiac cath Consider to add on subq anticoagulant if stays in the hospital for another 24hrs Disposition Plan to discharge home today Follow up with cardiology in 2 weeks Follow up with Dr. Saldana on 09/09@ 12:45 PM Total Time Total Time Spent Total Time Spent (In Minutes): 35 minutes Total Time Includes: Examination of the Patient, Discharge Planning, Medication Reconciliation, Communication With Other Providers and Other Discharge Plan Discharge Items Patient Disposition: Home - Self-Care Reason For Visit: NSTEMI Discharge Diagnosis: NSTEMI (non-ST elevated myocardial infarction) Paroxysmal atrial fibrillation Hypertension CAD (coronary artery disease) DM (diabetes mellitus) Hyperlipidemia Sleep apnea Diabetic neuropathy Activity: Resume your previous activity Non-emergency contact: Primary Care Provider and Shoe Laster Call non-emergency contact if: you have any medication questions and your temp erature is above 101 Follow-up/Referrals: Victoria Saldana DO [Primary Care Provider] - 09/09/19 12:45 pm Drew Bhandari [Physician Capital Markets Specialist] - 09/08/19 11:00 am Diet: Heart Healthy Addtl Attending Provider Instructions: Follow up with your primary care provider Dr. Saldana on 09/09 @ 12:45 PM Follow up with your cardiology in 2 weeks ( Please call to schedule for the appointment) Outpatient Electrophysiology consultation to evaluate for pacemaker implantation (cardiology will arrange it for you) Monitor your blood pressure Fall precaution Continue dual antiplatelet therapy (Aspirin and plavix) uninterrupted for minimum of 6 months post drug-eluting stent implantation. Ok to resume metformin tomorrow night (due to contrast from the cardiac cath) Continue to use your Cpap at night Medications: Metoprolol discontinued Lisinopril increased to 5 mg daily Atorvastatin increased to 40mg daily New medication: Plavix 75mg daily Isosorbide mononitrate 30mg daily Keep the area for the cardiac cath clean and dry to avoid any infection Do not use creams, lotions or ointment on the wound site Do not take a bath, tub soak, go in a Jacuzzi, or swim in a pool or cabrera for one week after the procedure. Do not participate in strenuous activities for 3 days after the procedure. Gradually increase your activities until you reach your normal activity level within two days after the procedure. Avoid heavy lifting (more than 10 pounds) and pushing or pulling heavy objects for the first 5 days after the procedure. Pending Studies at Discharge: No Stand-Alone Forms: [employer], Smoking Cessation Medications and DC Order Prescriptions: New atorvastatin 40 mg Tablet 40 mg PO HS 30 Days Qty: 30 RF: 0 isosorbide mononitrate 30 mg Tablet Extended Release 24 Hr 30 mg PO QAM 30 Days Qty: 30 RF: 0 clopidogrel 75 mg Tablet 75 mg PO QAM 30 Days Qty: 30 RF: 0 lisinopril [Zestril] 5 mg Tablet 5 mg PO QAM 30 Days Qty: 30 RF: 0 Continued metformin 500 mg Tablet 500 mg PO BIDM RF: 0 donepezil 5 mg Tablet 5 mg PO HS RF: 0 ondansetron HCl [Zofran] 8 mg Tablet 8 mg PO BID PRN (Reason: Nausea) RF: 0 aspirin 81 mg Tablet,Delayed Release (Dr/Ec) 81 mg PO QAM RF: 0 citalopram 20 mg Tablet 20 mg PO QAM RF: 0 meclizine 25 mg Tablet 25 mg PO DAILY PRN (Reason: Dizziness) RF: 0 gabapentin 100 mg Capsule 100 mg PO BID RF: 0 multivitamin with minerals Tablet 1 tab PO QAM RF: 0 clotrimazole 1 % Cream 1 applic TOPICAL BID PRN (Reason: Rash) RF: 0 omega [id number] oil [Fish Oil] 1,000 mg (120 mg-180 mg) Capsule 1 cap PO QAM RF: 0 Jardiance 25 mg Tablet 25 mg PO QAM RF: 0 Discontinued atorvastatin 20 mg Tablet 20 mg PO HS RF: 0 metoprolol succinate 25 mg Tablet Extended Release 24 Hr 25 mg PO HS RF: 0 lisinopril 2.5 mg Tablet 2.5 mg PO QAM RF: 0 Discharge Orders: Discharge Order (Routine); Ordered 09/03/19 Ordered By: García Avendaño Admission Data Admit Date/Time: 08/30/19 12:59 Attending Provider: García Avendaño Admit Provider: Ronni Pat Primary Care Provider: Victoria Saldana Other Providers: Ronni Pat ; Esteban Becker ; Guzman Linder Other Interventions: Discharge Summary Assessment (RN) Last Done: 09/03/19 13:07 DC Date/Time DO NOT enter until pt leaves facility: 09/03/19 14:00
== END 2019-09-03 14:00 | disposition home or self-care (01) | DRG 247 ==
LOC: ED 05:20 → 2S 05:20 → SUATTDRO 12:59

== ENCOUNTER 2019-09-13 06:41 | Observation (INO) ==
[2019-09-13] MEDS ORDERED: BUPIVACAINE 0.5 % 5 MG/1 ML PF 10ML VIAL ONE (07:01)
[2019-09-13] MEDS ORDERED: BACITRACIN INJ 50,000 UNIT VIAL ONE (07:01)
[2019-09-13] MEDS ORDERED: LIDOCAINE HCL 1% 20 ML VIAL ONE (07:01)
[2019-09-13] MEDS ORDERED: MIDAZOLAM HCL 5 MG/ML 1 ML VIAL ONE (07:17)
[2019-09-13] MEDS ORDERED: CEFAZOLIN 250 MG/ML 1 GM VIAL ONE (07:17)
[2019-09-13] MEDS ORDERED: fentaNYL citrate 100 MCG/2 ML VIAL ONE (07:17)
--- NOTE | 2019-09-13 07:56 | History & Physical Bridge Note ---
Date of Service September 13, 2019 History & Physical Bridge Note I have examined the patient, reviewed the History & Physical and in the interval since the performance of the History & Physical I have noted the following changes of clinical significance: no changes noted
--- NOTE | 2019-09-13 07:56 | Pre Anesthesia Assessment ---
Date of Service September 13, 2019 Pre Sedation Assessment Vital Signs Temp Pulse Resp BP Pulse Ox 09/13/19 06:58 37 C 62 22 166/90 H 97 Cardiovascular + bradycardic Respiratory normal respiratory effort, lungs clear to auscultation Pre-Sedation Airway Assessment Smoking Status: Former smoker Hx Sleep Apnea: No Hx Difficult Intubation: No Short, Thick Neck: Yes Thyromental Distance: < 3.5 Finger Breadths Oral Cavity: + Dentures Mallampati Class: II ASA: ASA3 NPO Status Date of Last Intake of Fluids: 09/12/19 Time of Last Intake of Fluids: 19:00 Date of Last Intake of Solid Food: 09/12/19 Time of Last Intake of Solid Foods: 19:00 Procedure Planning Contraindications for Sedation: none Current Medications Reviewed: Yes Notes The planned sedation has been discussed with the patient. Informed Consent was obtained. I have identified the patient, determined the appropriateness of sedation and have assessed the patient immediately prior to the procedure. All medicine(s) and interventions are by my order.
[2019-09-13] MEDS ORDERED: ACETAMINOPHEN 325 MG TAB PO PRN (09:38)
[2019-09-13] MEDS ORDERED: OXYCODONE/ACETAMINOPHEN 5mg/325mg TAB PO PRN (09:38)
--- NOTE | 2019-09-13 09:40 | Post Anesthesia Assessment ---
Date of Service September 13, 2019 Post Sedation Assessment Vital Signs Temp Pulse Resp BP Pulse Ox 09/13/19 06:58 37 C 62 22 166/90 H 97 Recovery Score Activity: Moves 4 extremities Respiration: Deep Breath/Cough Circulation: +/-20% PreAnes Value Consciousness: Fully Awake Oxygen Saturation: > 92% On Room Air Discharge Sedation Level of Care: Fast Track Phase II Post Sedation Plan On clinical assessment, the patient appears to have tolerated the sedation without complications. Patient is recovering as anticipated. Patient will continue to be monitored by nursing and may be discharged when sedation discharge criteria are met per below protocol. Upon Completions of procedure up to 15 minutes continue every 5 minute vital signs and the P.A.R. score; then discharge to a Phase I or Fast Track to Phase II per the following guidelines: * Discharge Patient to appropriate Phase II area if PAR is 8 or greater or return to pre- procedure baseline. The post - procedure orders will be as directed. * If PAR score is less than 8 or not return to pre-procedure baseline then patient will follow Phase I monitoring till PAR is reached for Phase II. The Phase I may be done in procedure room or may call to secure a Phase I area. * If naloxone or flumazenil are used for reversal, hold in Phase I for continued monitoring from when last reversal dose was given for a minimum of 60 minutes or longer pending the nurse and/or physician discretion of patient condition before discharge to Phase II. Please call the Sedation Physician to re-evaluate and complete post-note for discharge to Phase II area. Do NOT discharge from procedure sedation or Phase 1 until post- sedation evaluation note is complete by procedure /sedation MD Sedation Discharge Instructions to be given to the patient at discharge to home.
--- NOTE | 2019-09-13 09:40 | Operative Report ---
Post Operative Report Pre & Post Diagnosis sss Operation Date: 09/13/19 08:00 <No data on this case meets the specified criteria> I identified the patient and participated in the time-out.: Yes Procedure Operation Date: 09/13/19 08:00 Actual Procedures p Pacer with A/V Leads (Dual)(Left) - Vivienne Villalobos DO s Venogram, Unilateral - Vivienne Villalobos DO Surgeon Vivienne Villalobos, Pediatric Assistant none Estimated Blood Loss 20 Findings Consistent with Post-Op Diagnosis Specimens none Description of Procedure see official report I attest to the content of the Intraoperative Record and any orders documented therein. Any exceptions are noted below.
--- NOTE | 2019-09-13 10:30 | Operative Report ---
DATE OF OPERATION: 09/13/2019 PREOPERATIVE DIAGNOSIS: Sick sinus syndrome. POSTOPERATIVE DIAGNOSIS: Sick sinus syndrome. PROCEDURE: Dual chamber rate responsive permanent pacemaker under fluoroscopic guidance along with peripheral venogram. SURGEON: Vivienne Villalobos DO. GRINDING ROOM SUPERVISOR: None. ANESTHESIA: Monitored conscious sedation administered under my supervision by Vi Ruiz. Start time 8:24, end time 9:31. Total of 3 mg of Versed and 75 mcg of fentanyl. INTRAVENOUS FLUIDS: 34 mL. IV CONTRAST: 10 mL BLOOD LOSS: 20 mL URINE OUTPUT: Not applicable. SPECIMENS: None. FINDINGS: See below. DRAINS: None. INDICATIONS: This is an 84-year-old gentleman with past medical history for sick sinus syndrome, sinus bradycardia, right bundle branch block, first degree AV block, coronary artery disease status post PCI to the mid circumflex and mid RCA in 08/2019, paroxysmal atrial tachycardia, hypertension, hyperlipidemia, diabetes, history of colon cancer, status post partial colectomy and iron deficiency anemia. Due to his sick sinus syndrome and his CAD and they were holding his beta ruth, he was recommended a dual chamber pacemaker. CONSENT: Consent was obtained prior to the patient going into the electrophysiology lab. The patient was informed of the risks, benefits and alternative procedure. Risks include but not limited to sudden cardiac , cardiac arrhythmias, cerebrovascular accident, myocardial infarction, injury to the blood vessels, chamber of the heart, lung, bleeding, and infection. The patient understood these risks and agreed to the procedure as planned. Informed consent was obtained. DESCRIPTION OF THE PROCEDURE: The patient was brought into the electrophysiology lab in a fasting state. He was connected to continuous bus driver/monitor. Timeout was performed to ensure patient identity and procedure correctly. The patient received prophylactic antibiotics prior to incision. He was prepped and draped over the left infraclavicular space in normal surgical standard fashion. Monitored conscious sedation was given throughout the procedure for patient's comfort level. Mcbee precautions were maintained throughout the procedure. 20 mL of lidocaine, bupivacaine mixture were given within the left pectoral groove. Incision was made in left deltopectoral groove. Blunt dissection was performed down to identify the cephalic vein, but none could be identified, so peripheral venogram using 10 mL of contrast diluted in 10 mL of saline followed by 20 mL flush was performed. Axillary venous access was obtained through a needlestick without any problems. Guidewire was inserted without any resistance. An 8-Israeli sheath was inserted with guidewire without any resistance. Dilator was removed and a second guidewire was inserted through the 8-Israeli sheath to allow for retained venous access. Sheath was removed, flushed reinserted over the dilator, then reinserted over the guidewire. Guidewire and dilator removed. The right ventricular lead was then advanced into right ventricle and positioned into right ventricular apex under fluoroscopic guidance. There was adequate pacing and sensing thresholds and no diaphragmatic stimulation with high output pacing. The 8-Israeli sheath was peeled away and lead was fixated to pectoralis muscle using 0 silk suture. A second 8-Israeli sheath was inserted over the retained guidewire without any resistance. Guidewire and dilator removed. The right atrial lead was advanced into right atrium and positioned interatrial appendage initially with a preformed J blue curve but this dislodged, so then I used the larger gnuyen J form curve, this did dislodge a second time. Finally, at the third time it stayed and there was adequate pacing and sensing thresholds and no diaphragmatic stimulation with high output pacing. The 8-Israeli sheath was peeled away and lead was fixated to pectoralis muscle using 0 silk suture. A pacemaker pocket was created using blunt dissection over the pectoralis muscle within the pectoral fascia. Pocket was flushed with copious amounts of bacitracin saline wash and inspected for hemostasis. Pulse generator was then attached to the leads, making sure that the pins were in appropriate position, passed set screw and set screws were all tightened. Pulse generator was then placed in the pocket, making sure that the leads were lying flat beneath the device and an stay stitch was used to secure the device to pectoralis muscle using 0 silk suture. The incision was then closed in 3-layer fashion with 2-0 Vicryl interrupted suture followed by a 3-0 Vicryl interrupted suture followed by a 4-0 Monocryl running stitch and Dermabond was applied followed by a Brandon and micropore dressing. EQUIPMENT: 1. Pulse generator is a Medtronic Rasta XT DR WILLIAM Terry [id number], serial number [id number]. 2. Right atrial lead Medtronic 5076-52 cm, serial number [id number]. 3. Right ventricular lead, Medtronic 5076-58 cm, serial number [id number]. INTRAOPERATIVE TESTIN. Right atrial lead: P waves 1.5 millivolts, impedance 67 ohms, threshold 1.1 volt at 0.5 milliseconds. 2. Right ventricular lead: R-wave 6.9 millivolts, impedance 1115 ohms, threshold 0.6 volts at 0.5 milliseconds. FINAL MEASUREMENTS THROUGH THE DEVICE: 1. Right atrial lead: P waves 1.9 millivolts, impedance 570 ohms, threshold 0.75 volts at 0.5 milliseconds. 2. Right ventricular lead: R-wave 6.1 millivolts, impedance 798 ohms, threshold 0.5 volts at 0.5 milliseconds. FINAL PARAMETERS: MVP-R 60/120. Right atrial amplitude 3.5 volts, pulse width 0.4 milliseconds, sensitivity 0.3 millivolts. Right ventricular amplitude 3.5 volts, pulse width 0.4 milliseconds, sensitivity 0.9 millivolts. IMPRESSION: Successful implantation of a dual chamber rate responsive permanent pacemaker under fluoroscopic guidance along with peripheral venogram secondary to sick sinus syndrome. PLAN: Monitor patient overnight, 12-lead ECG, chest x-ray. He is not allowed to lift left elbow or left shoulder for 1 month. He cannot lift more than 10 pounds with the left arm for 2 weeks. He is to keep the dressing on and dry until his wound check next week. We will restart him back on his beta ruth, Toprol 25 mg daily, and he will continue to follow with general cardiology and our device clinic at [facility]. I attest to the content of the Intraoperative Record and any orders documented therein. Any exception s are noted below.
[2019-09-13] MEDS: METOPROLOL SUCC 25MG EXT REL TAB PO SCH (12:03)
--- NOTE | 2019-09-13 15:02 | Electrocardiogram Report ---
Test Reason : Blood Pressure : / mmHG Vent. Rate : 060 BPM Atrial Rate : 060 BPM P-R Int : 278 ms QRS Dur : 146 ms QT Int : 488 ms P-R-T Axes : -87 -55 -10 degrees QTc Int : 488 ms Atrial-paced rhythm with prolonged AV conduction Left axis deviation Right bundle branch block Abnormal ECG When compared with ECG of 03-SEP-2019 06:49, Electronic atrial pacemaker has replaced Sinus rhythm Inverted T waves have replaced nonspecific T wave abnormality in Inferior leads T wave inversion now evident in Anterior leads Confirmed by Sukhdev Armenta ([id number]) on 09/13/2019 3:02:37 PM Referred By: Vivienne Villalobos Confirmed By:Nnamdi Armenta
--- NOTE | 2019-09-14 06:28 | XRay Report ---
XR chest 2V PA/lateral HISTORY: 84 years-old Male post ppm status post placement of a left subclavian pacer COMPARISON: Chest radiograph 08/30/2019 TECHNIQUE: PA and lateral views of the chest FINDINGS: Limited lateral view secondary to left upper extremity positioning. Status post placement of a left s ubclavian pacer with leads overlying the expected locations of the left atrium and left ventricle. No postprocedural pneumothorax identified. Cardiac silhouette is enlarged. Calcified plaque of the thor acic aortic arch. Mild eventration of the right hemidiaphragm. Mild hyperinflation. No overt pulmonar y edema, airspace consolidation or pleural effusion. Degenerative changes of the spine. Bilateral mikki ulder arthroplasties. IMPRESSION: Status post placement of a left subclavian pacer. No postprocedural pneumothorax. ACT 112: Negative or not required by law. The above report was generated using voice recognition software. It may contain grammatical, syntax o r spelling errors. Electronically signed by: Bowen Donald M.D. 09/14/2019 6:27 AM
[2019-09-14] MEDS: METOPROLOL SUCC 25MG EXT REL TAB PO SCH (10:23)
--- NOTE | 2019-09-14 16:20 | Discharge Summary ---
Date of Service September 14, 2019 Admission HPI Per Admitting Provider +fatigue and SOB Pt admitted for elective ppm due to SSS Admission Exam Per Admitting Provider aaox3, NAD NC/AT, EOMI Supple No JVD Nrl S1/S2, No murmur CTA b/l no w/r/r soft nt/nd no LE edema b/l skin intact no focal deficits Principal Diagnosis sss s/p ppm Discharge Exam aaox3, NAD NC/AT, EOMI Supple No JVD Nrl S1/S2, No murmur CTA b/l no w/r/r soft nt/nd no LE edema b/l skin intact no focal deficits left pectoral incision intact, no hematoma mild ecchymosis Discharge Data Allergies Allergy/AdvReac Type Severity Reaction Status Date / Time hydrocodone Allergy Intermediate MAKES PT Verified 08/30/19 05:39 HALLUCINATE meperidine Allergy Intermediate psych Verified 08/30/19 05:39 complications oxycodone Allergy Intermediate MAKES PT Verified 08/30/19 05:39 HALLUCINATES Procedures Performed Operation Date: 09/13/19 08:00 Actual Procedures p Pacer with A/V Leads (Dual)(Left) - Vivienne Villalobos DO s Venogram, Unilateral - Vivienne Villalobos DO Ordered Studies Pacemaker Interrogation: Normal function and testing ECG: SR CXR: no PTX leads in position 09/13/19 06:42 CL Cath Imgs for PACS use only Routine Hospital Course (1) SSS (sick sinus syndrome): Total Time Total Time Spent Total Time Spent (In Minutes): 35 Total Time Includes: Examination of the Patient, Discharge Planning, Medication Reconciliation and Other Discharge Plan Discharge Items Patient Disposition: Home - Self-Care Reason For Visit: SSS Discharge Diagnosis: SSS s/p dual chamber ppm Condition on Discharge: Good Activity: As commented below Activity Comment: do not raise your left elbow over your left shoulder for 1 month Lifting: No more than 10 pounds Lifting Comment: do not lift more than 10 pounds with the left arm for 2 weeks Bathing: Keep incision dry Bathing Comment: keep dressing on & dry until wound check next week Sexual Activity: After two weeks Driving/Machine Use: Resume 1 day after discharge Non-emergency contact: [place] Machine Operator Call non-emergency contact if: you have any medication questions Follow-up/Referrals: Victoria Saldana DO [Primary Care Provider] - 09/16/19 1:00 pm Diet: Heart Healthy Addtl Attending Provider Instructions: Device and wound check at [facility] on 09/22/2019 at 10:15am Please look at your device area every day for the next month-if you notice any concerns especially swelling or redness call Dr. Villalobos's office immediately Pending Studies at Discharge: No Stand-Alone Forms: My [facility], Smoking Cessation Medications and DC Order Prescriptions: New metoprolol succinate 25 mg Tablet Extended Release 24 Hr 25 mg PO QAM 30 Days Qty: 30 RF: 0 Continued metformin 500 mg Tablet 500 mg PO BIDM RF: 0 donepezil 5 mg Tablet 5 mg PO HS RF: 0 aspirin 81 mg Tablet,Delayed Release (Dr/Ec) 81 mg PO QAM RF: 0 citalopram 20 mg Tablet 20 mg PO QAM RF: 0 meclizine 25 mg Tablet 25 mg PO DAILY PRN (Reason: Dizziness) RF: 0 gabapentin 100 mg Capsule 100 mg PO BID RF: 0 multivitamin with minerals Tablet 1 tab PO QAM RF: 0 clotrimazole 1 % Cream 1 applic TOPICAL BID PRN (Reason: Rash) RF: 0 omega 2-bxm-chz-fish oil [Fish Oil] 1,000 mg (120 mg-180 mg) Capsule 1 cap PO QAM RF: 0 Jardiance 25 mg Tablet 25 mg PO QAM RF: 0 atorvastatin 40 mg Tablet 40 mg PO HS 30 Days Qty: 30 RF: 0 isosorbide mononitrate 30 mg Tablet Extended Release 24 Hr 30 mg PO QAM 30 Days Qty: 30 RF: 0 clopidogrel 75 mg Tablet 75 mg PO QAM 30 Days Qty: 30 RF: 0 lisinopril [Zestril] 5 mg Tablet 5 mg PO QAM 30 Days Qty: 30 RF: 0 Discharge Orders: Discharge Order (Routine); Ordered 09/14/19 Ordered By: Vivienne Villalobos Admission Data Admit Date/Time: 09/13/19 08:12 Attending Provider: Vivienne Villalobos Admit Provider: Vivienne Villalobos Primary Care Provider: Victoria Saldana Other Interventions: Discharge Summary Assessment (RN) Last Done: 09/14/19 10:15 DC Date/Time DO NOT enter until pt leaves facility: 09/14/19 11:31
== END 2019-09-14 11:31 | disposition home or self-care (01) ==
LOC: EP 06:41 → 1E 06:41

== ENCOUNTER 2022-01-16 11:37 | Inpatient (IN) ==
--- NOTE | 2022-01-16 11:45 | Emergency Department Note ---
Impression & Plan Fall, Acute knee pain, Ambulatory dysfunction, Dementia, Acute dehydration ED Provider Note NAME: JOAQUIN MARISCAL AGE: 86 SEX: M : 1935 ARRIVES VIA: Ambulance INFORMANT: Patient, ED PROVIDER(S): Franki Palacios MD Chief Complaint: HPI: Patient presents from home due to concern for fall. The patient states that he did not fall but that he was on a riding tractor. The history per nursing is at the patient may have had a fall but unsure clear as to the true etiology. The patient denies any head neck chest back abdominal or upper extremity pain. The patient does have some right knee pain and had noticed some swelling which he stated began last night. The patient does take aspirin and Plavix but no blood thinning anticoagulant medications. Patient Nuys any fevers or chills. The patient does have a known history of dementia but reportedly per EMS when they spoke with the she related that he was more confused than normal. Patient Nuys any head or neck pain. Patient denies any numbness or tingling. History may be somewhat limited given the patient's history of dementia. When the did arrive to the end of the work-up she did relate that he had a ground-level fall that was unwitnessed and the patient was having difficulty with walking since last evening and that she thought that maybe he had twisted his knee. ROS: See HPI for pertinent positives and negatives. A total of 10 systems were reviewed and otherwise negative. Past medical history: See below Surgical history: See below Social history: See below Physical Exam: GENERAL: NAD, wearing glasses, wearing a mask, non-toxic. EYE EXAM: Normal conjunctiva. PERRL, no anisocoria and EOM's grossly intact w/o pain. OROPHARYNX: Moist mucus membranes. Grossly normal dentition. NECK: Supple, no nuchal rigidity, no adenopathy, non-tender. No signs of meningismus. Chest: No reproducible chest wall pain LUNGS: Clear to auscultation. Normal chest wall mechanics. HEART: NSR, no MRG. ABDOMEN: Abdomen soft, non-tender, normo-active bowel sounds, no masses, no rebound or guarding. BACK: No CVA TTP. SKIN: No rashes and no bruising. UPPER EXTREMITIES: Upper extremities are grossly normal. No TTP or obvious deformity. Healed incisional scar left shoulder LOWER EXTREMITIES: Moderate swelling to the right knee, normal sensation per patient. No distal TTP and the patient is sensate moves the ankles and toes without issue. NEURO EXAM: A&O x3, cranial nerves II-XII grossly intact, normal speech, moves all 4 extremities on command w/o issue. Good finger to nose, no drift, no sensory deficits. Differential diagnoses: Infection, dehydration, metabolic abnormality, hypo/hyperglycemia, electrolyte disturbance, anemia, hypoxia, cardiac sources, intracerebral event, toxicologic, neurologic, as well as other pathologies. Course: Patient was seen and evaluated the bedside. Full history physical exam was performed. EKG interpreted by V paced rhythm, rate of 65, normal QRS, left axis deviation. Imaging Studies: See Below Cardiac monitoring: An order was placed for continuous cardiac monitoring. The monitor shows a rate of 67 with paced rhythm. Procedures: Joint Aspiration performed by Dr. Palacios Joint Asp./Inject. 1: Time Out Performed: Yes Side of body: Right Joint Aspirated: Knee Ultrasound was utilized preprocedure Skin Prep: Chlorhexidine Local Anesthetic: lidocaine 1% Amount of anesthesia used (mL): 7 Needle Size Used: 18G Total fluid obtained (mL): 1 Patient Tolerated Procedure: well Complications: none MDM: Patient presents due to concern for weakness and fall. The patient did have right knee swelling. Blood work is obtained along with CT of the head urinalysis and right knee x-ray. No obvious fracture seen on the x-ray. CT that is negative. Blood work is fairly unremarkable. Patient had a white count of 11.9 with normal H&H and platelet count. Kidney function with some prerenal azotemia and does have ketones in the urine. Bilirubin 1.5 the patient has no right upper quadrant pain. Urinalysis does not show evidence of blood or infection. I did attempt an arthrocentesis of the right knee which only got a small amount of fluid. On reassessment the patient the patient was unable to stand up very well or walk on his own even with assistance. Given this concern I did speak with case management. The patient reportedly does have hospice. Further discussion between case management and hospice service and . I did order a CT angiography of the right lower extremity as the patient did have a slightly colder right lower extremity compared to his left but the patient was otherwise sensate did not have significant pain. Was also obtained given the concern for possibly traumatic fall although the patient did not have obvious evidence of dislocation. Patient CT angiography did show that he had some high- grade stenoses but had flow in the distal extremity. I did speak with Ruthie Shen PA-C and the patient was admitted to the medicine service by Dr. Orozco. Past Med/Surg History Medical History CAD (coronary artery disease) Dementia Depression Diabetes mellitus, type 2 Diabetic neuropathy Hearing deficit History of colon cancer 2017--sx/oral chemo History of deep vein thrombosis (DVT) of lower extremity right leg---no blood thinners History of prostate cancer 2013--sx/radiation Hyperlipidemia Hypertension Myocardial Infarction hx of NSTEMI in setting of sepsis July [address] segment elevation myocardial manage medically, occurring in the setting of acute sepsis secondary abdominal abscess following colon resection for colon cancer. Sleep apnea cpap Surgical History H/O colectomy History of bilateral cataract extraction [place] of [place] [facility] [place] History of left shoulder replacement History of open reduction and internal fixation (ORIF) procedure right ankle--no hardware History of prostate biopsy malignant History of prostatectomy d/t cancer History of revision of total replacement of right hip joint History of right shoulder replacement History of tooth extraction all teeth History of total left hip replacement History of total right hip replacement S/P cataract surgery S/P hip replacement Family History Denies family history of Heart disease Social History Smoking Status: Never smoker Number of Years Since Quit: 3; Second Hand Exposure: No; Hx Alcohol Use: Yes Alcohol type: beer Alcohol Intake Frequency Comment: few times per week Hx Substance Use: No Preferred Language: Croatian Communication Ability: Effective Grocery Clerk Required: No Beliefs That Will Affect Care: None Current Living Situation: Spouse Feels Safe at Home: Yes Assistive Devices: Cane, Denture - Upper, Denture - Lower, Glasses and Hearing Aid - Bilateral Allergies Allergies Allergy/AdvReac Type Severity Reaction Status Date / Time hydrocodone AdvReac Intermediate MAKES PT Verified 01/16/22 14:58 HALLUCINATE meperidine AdvReac Intermediate psych Verified 01/16/22 14:58 complications oxycodone AdvReac Intermediate MAKES PT Verified 01/16/22 14:58 HALLUCINATES Home Meds Home Medications Medication Instructions Recorded Confirmed aspirin 81 mg tablet,delayed 81 mg PO QAM 07/25/19 01/16/22 release citalopram 20 mg tablet 20 mg PO QAM 07/25/19 01/16/22 empagliflozin 25 mg tablet 25 mg PO QAM 07/25/19 01/16/22 (Jardiance) gabapentin 100 mg capsule 100 mg PO BID 07/25/19 01/16/22 meclizine 25 mg tablet 25 mg PO DAILY PRN 07/25/19 01/16/22 metformin 500 mg tablet 500 mg PO BIDM 07/25/19 01/16/22 multivitamin with minerals 1 tab PO QAM 07/25/19 01/16/22 omega 3-tiy-ufa-fish oil 1,000 mg 1 cap PO QAM 07/25/19 01/16/22 (120 mg-180 mg) capsule (Fish Oil) atorvastatin 40 mg tablet 40 mg PO QPM 07/23/21 01/16/22 clopidogrel 75 mg tablet 75 mg PO DAILY 07/23/21 01/16/22 donepezil 10 mg tablet 10 mg PO HS 07/23/21 01/16/22 isosorbide mononitrate 30 mg 30 mg PO DAILY 07/23/21 01/16/22 tablet,extended release 24 hr metoprolol succinate 50 mg 50 mg PO DAILY 07/23/21 01/16/22 tablet,extended release 24 hr biotin 10 mg tablet 10 mg PO DAILY 01/16/22 01/16/22 Results & Data (ED) Vital Signs Vital Signs - 24 hr 01/16/22 11:41 01/16/22 11:54 01/16/22 13:10 Temperature 36.8 C Temperature Source Oral Pulse Rate 63 Pulse Rate [Apical] 62 Pulse Rhythm [Apical] Pulse Strength Normal Respiratory Rate 18 18 Respiratory Effort / Characteristics Non-Labored Spontaneous Non-Labored Spontaneous Respiratory Depth Normal Normal Respiratory Pattern Regular Regular Blood Pressure 156/104 H Blood Pressure [Right Arm] 142/89 H Blood Pressure Mean 121 Blood Pressure Mean [Right Arm] 106 Blood Pressure Position Sitting Blood Pressure Position [Right Arm] Lying Pulse Oximetry 96 93 94 Oxygen Delivery Method Room Air Room Air Room Air Sepsis Recent Fever Within 48 Hours No Sepsis New/Unexplained Change in Mental Status N/A Sepsis Action Taken by Nursing No Action Required 01/16/22 15:00 Temperature Temperature Source Pulse Rate Pulse Rate [Apical] 67 Pulse Rhythm [Apical] Regular Pulse Strength Respiratory Rate 18 Respiratory Effort / Characteristics Non-Labored Spontaneous Respiratory Depth Normal Respiratory Pattern Regular Blood Pressure Blood Pressure [Right Arm] 163/77 H Blood Pressure Mean Blood Pressure Mean [Right Arm] 105 Blood Pressure Position Blood Pressure Position [Right Arm] Sitting Pulse Oximetry 93 Oxygen Delivery Method Room Air Sepsis Recent Fever Within 48 Hours Sepsis New/Unexplained Change in Mental Status Sepsis Action Taken by Assisted Medications Current Medication List: was personally reviewed by me Laboratory Data Attestation: I reviewed the patient's lab results. Result diagrams: 01/16/22 11:11 01/16/22 11:11 Lab Results 01/16/22 01/16/22 01/16/22 Range/Units 11:11 11:11 11:11 WBC 11.97 H (4.8-10.8) K/uL RBC 5.25 (4.7-6.1) M/uL Hgb 15.7 (14.0-18.0) g/dL Hct 47.2 (42-52) % MCV 89.9 (80-100) fL MCH 29.9 (25-34) pg MCHC 33.3 (32-36) g/dL RDW Std Deviation 50.4 H (36.4-46.3) fL RDW Coeff of Mini 15.3 H (11.5-14.5) % Plt Count 200 (130-400) K/uL MPV 11.2 H (7.4-10.4) fL Immature Gran % (Auto) 0.4 % Neut % (Auto) 69.4 % Lymph % (Auto) 18.3 % [place] % (Auto) 11.5 % Eos % (Auto) 0.3 % Baso % (Auto) 0.1 % Neut # (Auto) 8.30 H (1.4-6.5) K/uL Lymph # (Auto) 2.19 (1.2-3.4) K/uL [place] # (Auto) 1.38 H (0.11-0.59) K/uL Eos # (Auto) 0.04 (0-0.5) K/uL Baso # (Auto) 0.01 (0-0.2) K/uL Immature Gran # (Auto) 0.05 H (0.00-0.02) K/uL Sodium 141 (136-145) mmol/L Potassium 4.2 (3.5-5.1) mmol/L Chloride 104 (98-107) mmol/L Carbon Dioxide 24 (21-32) mmol/L Anion Gap 13 H (3-11) BUN 27 H (6-23) mg/dl Creatinine 1.07 (0.6-1.4) mg/dl Est Cr Clr Drug Dosing 64.6 ml/min Est GFR ( Amer) 72.5 ml/min Est GFR (Non-Af Amer) 62.5 ml/min BUN/Creatinine Ratio 25.2 H (10-20) Glucose 184 H (70-99(Fasting)) mg/dl Calcium 9.9 (8.5-10.1) mg/dl Magnesium 2.1 (1.7-2.4) mg/dl Total Bilirubin 1.5 H (0.2-1.0) mg/dl AST 19 (13-39) U/L ALT 22 (7-52) U/L Alkaline Phosphatase 86 (34-104) U/L Troponin I High Sens 11.2 (0-20) pg/ml Total Protein 7.9 (6.0-8.3) gm/dl Albumin 4.6 (3.4-5.0) gm/dl Globulin 3.3 (2.5-4.0) gm/dl Albumin/Globulin Ratio 1.4 (0.9-2) TSH 1.773 (0.300-4.500) uIu/ml Urine Color Urine Appearance (Clear) Urine pH (4.5-7.5) Ur Specific [place] (1.000-1.030) Urine Protein (Negative) Urine Glucose (UA) (Negative) Urine Ketones (Negative) Urine Blood (Negative) Urine Nitrite (Negative) Urine Bilirubin (Negative) Urine Urobilinogen (Negative) Ur Leukocyte Esterase (Negative) Urine WBC (Auto) (0-5) /hpf Urine RBC (Auto) (0-4) /hpf U Hyaline Cast (Auto) (0-5) /lpf U Epithel Cells (Auto) (0-5) /lpf Urine Bacteria (Auto) (Negative) 01/16/22 Range/Units 11:55 WBC (4.8-10.8) K/uL RBC (4.7-6.1) M/uL Hgb (14.0-18.0) g/dL Hct (42-52) % MCV (80-100) fL MCH (25-34) pg MCHC (32-36) g/dL RDW Std Deviation (36.4-46.3) fL RDW Coeff of Mini (11.5-14.5) % Plt Count (130-400) K/uL MPV (7.4-10.4) fL Immature Gran % (Auto) % Neut % (Auto) % Lymph % (Auto) % [place] % (Auto) % Eos % (Auto) % Baso % (Auto) % Neut # (Auto) (1.4-6.5) K/uL Lymph # (Auto) (1.2-3.4) K/uL [place] # (Auto) (0.11-0.59) K/uL Eos # (Auto) (0-0.5) K/uL Baso # (Auto) (0-0.2) K/uL Immature Gran # (Auto) (0.00-0.02) K/uL Sodium (136-145) mmol/L Potassium (3.5-5.1) mmol/L Chloride (98-107) mmol/L Carbon Dioxide (21-32) mmol/L Anion Gap (3-11) BUN (6-23) mg/dl Creatinine (0.6-1.4) mg/dl Est Cr Clr Drug Dosing ml/min Est GFR ( Amer) ml/min Est GFR (Non-Af Amer) ml/min BUN/Creatinine Ratio (10-20) Glucose (70-99(Fasting)) mg/dl Calcium (8.5-10.1) mg/dl Magnesium (1.7-2.4) mg/dl Total Bilirubin (0.2-1.0) mg/dl AST (13-39) U/L ALT (7-52) U/L Alkaline Phosphatase (34-104) U/L Troponin I High Sens (0-20) pg/ml Total Protein (6.0-8.3) gm/dl Albumin (3.4-5.0) gm/dl Globulin (2.5-4.0) gm/dl Albumin/Globulin Ratio (0.9-2) TSH (0.300-4.500) uIu/ml Urine Color Yellow Urine Appearance Clear (Clear) Urine pH 5.5 (4.5-7.5) Ur Specific [place] 1.044 H (1.000-1.030) Urine Protein 1+ H (Negative) Urine Glucose (UA) 3+ H (Negative) Urine Ketones 1+ H (Negative) Urine Blood Negative (Negative) Urine Nitrite Negative (Negative) Urine Bilirubin Negative (Negative) Urine Urobilinogen Negative (Negative) Ur Leukocyte Esterase Negative (Negative) Urine WBC (Auto) 0 (0-5) /hpf Urine RBC (Auto) 0-4 (0-4) /hpf U Hyaline Cast (Auto) 0 (0-5) /lpf U Epithel Cells (Auto) 0-5 (0-5) /lpf Urine Bacteria (Auto) Negative (Negative) Administered Medications Discontinued Medications Acetaminophen (Acetaminophen 500 Mg Tab) 1,000 mg PO NOW STA Stop: 01/16/22 11:55 Last Admin: 01/16/22 12:20 Dose: 1,000 mg Documented by: [id number] Ioversol (Optiray 320 125ml) 119 ml IV ONCE ONE Stop: 01/16/22 16:11 Last Admin: 01/16/22 16:10 Dose: 119 ml Documented by: [id number] Lidocaine/Epinephrine (Lidocaine 1%/Epinephrine 1:100,000 50 Ml Vial) 50 ml INFIL NOW ONE Stop: 01/16/22 12:51 Last Admin: 01/16/22 13:16 Dose: 50 ml Documented by: [id number] Imaging Data Radiologist's Impression: Chest X-Ray 01/16/22 11:54 XR chest 1V portable CLINICAL HISTORY: weakness COMPARISON STUDY: Chest radiograph July 23, 2021. FINDINGS: Bilateral shoulder arthroplasties and a dual lead left subclavian pacemaker are incidentally noted. Cardiomegaly is unchanged. No evidence for pulmonary edema. No pneumothorax or pleural effusion. Appearance of the chest is unchanged. IMPRESSION: No acute cardiopulmonary findings. No change in appearance of the chest. ACT 112: Negative or not required by law. Electronically signed by: David Rivera M.D. 01/16/2022 12:[address] 01/16/22 11:54 CT head/brain wo con CLINICAL HISTORY: confusion Technique: Contiguous axial CT images of the head were acquired from the base of the skull to the vertex without intravenous contrast administration. Images were viewed in brain, subdural and bone windows. Automated dose lowering techniques and/or adjustment according to patient size were utilized for this exam. Comparison: Comparison is made to CT scan 07/23/2021 Findings: Areas of decreased attenuation are present in the periventricular and subcortical white matter bilaterally consistent with small vessel ischemic disease. Generalized cerebral atrophy with commensurate enlargement of the ventricles, sulci, and cisterns is also present. There is no acute intracranial hemorrhage or evidence of acute territorial infarction. No shift of the midline structures, mass effect, or extra-axial abnormalities are shown. Atherosclerotic calcifications are present in the intracranial segments of the internal carotid arteries. Encephalomalacia is noted most prominently in the b ilateral temporal lobes. Imaged portions of the paranasal sinuses and mastoid air cells are clear. The orbits appear normal. There are no acute fractures of the calvaria or scalp swelling. Impression: No acute intracranial hemorrhage, no evidence of acute territorial infarction or other acute intracranial disease process. ACT 112: Negative or not required by law. Electronically signed by: J Carlos Sutton M.D. 01/16/2022 1:10 PM Knee X-Ray 01/16/22 11:54 XR knee RT 3V HISTORY: 86 years-old Male swelling, ?fall acute pain and swelling of the right knee status post fall COMPARISON: Knee radiographs 01/11/2018 TECHNIQUE: 3 views of the right knee FINDINGS: Small to moderate joint effusion. Chondrocalcinosis. Mild lateral with moderate medial and patellofemoral compartment osteoarthritis. Arterial calcifications. No acute fracture, dislocation or opaque foreign body. IMPRESSION: 1. Small to moderate joint effusion without acute fracture or dislocation. 2. Chondrocalcinosis with tricompartmental osteoarthritis. ACT 112: Negative or not required by law. The above report was generated using voice recognition software. It may contain grammatical, syntax or spelling errors. Electronically signed by: Brenden Donald M.D. 01/16/2022 12:24 PM Lower Extremity CTA 01/16/22 14:46 CT angio LE RT w inc wo if don HISTORY: 86 years-old Male knee swelling acute pain and swelling of the right lower extremity COMPARISON: Right knee radiographs of same day TECHNIQUE: CTA of the right lower extremity was obtained following the intravenous ministration of 119 mL Optiray 320. 3-D coronal and sagittal MIPS were obtained from the axial data set and were submitted for review. All measurements were obtained according to NASCET criteria. A dose lowering technique was used consistent with the principals of BRODY. FINDINGS: There is a moderate sized joint fusion of the knee. Likely degenerative related synovial calcifications are noted in addition to tricompartmental osteoarthritis which is mild within the lateral compartment and moderate within the medial and patellofemoral compartments. No acute fracture, dislocation, osseous erosion or destructive bone lesion. There is additional osteoarthritis noted within the right foot and ankle. Complex 1.7 x 2.2 x 7.1 cm Navas's cyst. Moderate atrophy of the lower extremity musculature. Tendons and ligaments are not well evaluated by CT technique. No soft tissue mass lesions or discrete fluid collections are identified. No significant inflammatory changes. Atherosclerotic plaque is noted throughout the bilateral lower legs. No high- grade stenosis of the distal superficial femoral or popliteal arteries. Multifocal high-grade stenoses are noted within the anterior and posterior tibial arteries with three-vessel flow noted at the level of the ankle. The peroneal artery is patent. Incidental note is made of multifocal stenoses of the left lower extremity arterial structures. No aneurysm or dissection identified. IMPRESSION: 1. Atherosclerotic vascular disease with multifocal high-grade stenoses of the anterior and posterior tibial arteries. 2. Tricompartmental osteoarthritis of the right knee with moderate sized joint effusion. 3. No acute fracture identified. 4. Complex Navas's cyst containing internal debris versus hemorrhage. ACT 112: Negative or not required by law. The above report was generated using voice recognition software. It may contain grammatical, syntax or spelling errors. Electronically signed by: Brenden Donald M.D. 01/16/2022 4:29 PM Discharge Plan Visit Data Chief Complaint: Weakness Stated Complaint: WEAKNESS, CONFUSION, R KNEE PAIN ED Provider: Franki Palacios Discharge Problem: Fall, Acute knee pain, Ambulatory dysfunction, Dementia, Acute dehydration Forms Stand Alone Forms: [facility] [employer] Prescriptions Prescriptions: No Action metformin 500 mg Tablet 500 mg PO BIDM RF: 0 aspirin 81 mg Tablet,Delayed Release (Dr/Ec) 81 mg PO QAM RF: 0 citalopram 20 mg Tablet 20 mg PO QAM RF: 0 meclizine 25 mg Tablet 25 mg PO DAILY PRN (Reason: Dizziness) RF: 0 gabapentin 100 mg Capsule 100 mg PO BID RF: 0 multivitamin with minerals Tablet 1 tab PO QAM RF: 0 omega 2-tyh-pfc-fish oil [Fish Oil] 1,000 mg (120 mg-180 mg) Capsule 1 cap PO QAM RF: 0 Jardiance 25 mg Tablet 25 mg PO QAM RF: 0 metoprolol succinate 50 mg tablet extended release 24 hr 50 mg PO DAILY RF: 0 donepezil 10 mg tablet 10 mg PO HS RF: 0 atorvastatin 40 mg tablet 40 mg PO QPM RF: 0 isosorbide mononitrate 30 mg tablet extended release 24 hr 30 mg PO DAILY RF: 0 clopidogrel 75 mg tablet 75 mg PO DAILY RF: 0 biotin 10 mg Tablet 10 mg PO DAILY RF: 0 Referrals Referrals: Victoria Saldana DO [Primary Care Provider] - Discharge Problem: Fall Qualifiers: Encounter type: initial encounter Qualified Code(s): W19.XXXA - Unspecified fall, initial encounter Acute knee pain Qualifiers: Laterality: right Qualified Code(s): M25.561 - Pain in right knee Dementia Qualifiers: Dementia type: unspecified type Dementia behavioral disturbance: without behavioral disturbance Qualified Code(s): F03.90 - Unspecified dementia without behavioral disturbance
[2022-01-16] MEDS ORDERED: ACETAMINOPHEN 500 MG TAB PO STA (11:54)
[2022-01-16 12:12] LABS: Basophils # (auto) 0.01 K/uL (0-0.2); Basophils % (auto) 0.1 %; Eosinophils # (auto) 0.04 K/uL (0-0.5); Eosinophils % (auto) 0.3 %; Hematocrit (blood only) 47.2 % (42-52); Hemoglobin 15.7 g/dL (14.0-18.0); Immature Granulocytes # (auto) 0.05 K/uL (0.00-0.02); Immature Granulocytes % (auto) 0.4 %; Lymphocytes # (auto) 2.19 K/uL (1.2-3.4); Lymphocytes % (auto) 18.3 %; Mean Corpuscular Hemoglobin 29.9 pg (25-34); Mean Corpuscular Hgb Conc 33.3 g/dL (32-36); Mean Corpuscular Volume 89.9 fL (80-100); Mean Platelet Volume 11.2 fL (7.4-10.4); Monocytes # (auto) 1.38 K/uL (0.11-0.59); Monocytes % (auto) 11.5 %; Neutrophils % (auto) 69.4 %; Platelet Count 200 K/uL (130-400); RDW Coefficient of Variation 15.3 % (11.5-14.5); RDW Standard Deviation 50.4 fL (36.4-46.3); Red Blood Count 5.25 M/uL (4.7-6.1); White Blood Count 11.97 K/uL (4.8-10.8)
--- NOTE | 2022-01-16 12:26 | XRay Report ---
XR knee RT 3V HISTORY: 86 years-old Male swelling, ?fall acute pain and swelling of the right knee status post fal l COMPARISON: Knee radiographs 01/11/2018 TECHNIQUE: 3 views of the right knee FINDINGS: Small to moderate joint effusion. Chondrocalcinosis. Mild lateral with moderate medial and patellofem oral compartment osteoarthritis. Arterial calcifications. No acute fracture, dislocation or opaque fo reign body. IMPRESSION: 1. Small to moderate joint effusion without acute fracture or dislocation. 2. Chondrocalcinosis with tricompartmental osteoarthritis. ACT 112: Negative or not required by law. The above report was generated using voice recognition software. It may contain grammatical, syntax o r spelling errors. Electronically signed by: Brenden Donald M.D. 01/16/2022 12:24 PM
[2022-01-16 12:28] LABS: Albumin Globulin Ratio 1.4 (0.9-2); Albumin Level 4.6 gm/dl (3.4-5.0); BUN Creatinine Ratio 25.2 (10-20); Bilirubin,Total 1.5 mg/dl (0.2-1.0); Calcium 9.9 mg/dl (8.5-10.1); Creatinine Clr Calc Pharmacy 64.6 ml/min; Est GFR (African American) 72.5 ml/min; Est GFR (Non-African American) 62.5 ml/min; Globulin 3.3 gm/dl (2.5-4.0); Magnesium 2.1 mg/dl (1.7-2.4); Potassium 4.2 mmol/L (3.5-5.1); Total Protein 7.9 gm/dl (6.0-8.3)
--- NOTE | 2022-01-16 12:28 | XRay Report ---
XR chest 1V portable CLINICAL HISTORY: weakness COMPARISON STUDY: Chest radiograph July 23, 2021. FINDINGS: Bilateral shoulder arthroplasties and a dual lead left subclavian pacemaker are incidentall y noted. Cardiomegaly is unchanged. No evidence for pulmonary edema. No pneumothorax or pleural effus ion. Appearance of the chest is unchanged. IMPRESSION: No acute cardiopulmonary findings. No change in appearance of the chest. ACT 112: Negative or not required by law. Electronically signed by: David Rivera M.D. 01/16/2022 12:27 PM
[2022-01-16 12:29] LABS: Appearance Urine Clear (Clear); Bacteria Urine Automated Negative (Negative); Bilirubin Urine Negative (Negative); Blood Urine Negative (Negative); Cast Urine Automated 0 /lpf (0-5); Color Urine Yellow; Epithelial Cell Urine Auto 0-5 /lpf (0-5); Glucose Urine UA 3+ (Negative); Ketones Urine 1+ (Negative); Leukocyte Esterase Urine Negative (Negative); Nitrite Urine Negative (Negative); Protein Urine 1+ (Negative); RBC Urine Automated 0-4 /hpf (0-4); Specific Gravity Urine 1.044 (1.000-1.030); Urobilinogen Urine Negative (Negative); WBC Urine Automated 0 /hpf (0-5); pH Urine 5.5 (4.5-7.5)
[2022-01-16 12:33] LABS: Troponin I High Sensitivity 11.2 pg/ml (0-20)
[2022-01-16] MEDS ORDERED: LIDOCAINE 1%/EPINEPHRINE 1:100,000 50 ML VIAL INFIL ONE (12:50)
--- NOTE | 2022-01-16 13:01 | Electrocardiogram Report ---
Test Reason : Blood Pressure : / mmHG Vent. Rate : 065 BPM Atrial Rate : 066 BPM P-R Int : 000 ms QRS Dur : 094 ms QT Int : 414 ms P-R-T Axes : 000 -69 084 degrees QTc Int : 430 ms Poor data quality, interpretation may be adversely affected Ventricular-paced rhythm with occasional AV dual-paced complexes and with frequent Premature ventricu lar complexes Abnormal ECG When compared with ECG of 13-SEP-2019 11:27, Electronic ventricular pacemaker has replaced Electronic atrial pacemaker Confirmed by Sukh Villegas ([id number]) on 01/16/2022 1:01:18 PM Referred By: REFERRED SELF Confirmed By:Sukh Villegas
--- NOTE | 2022-01-16 13:12 | CT Scan Report ---
CT head/brain wo con CLINICAL HISTORY: confusion Technique: Contiguous axial CT images of the head were acquired from the base of the skull to the cameron hemal without intravenous contrast administration. Images were viewed in brain, subdural and [facility] . Automated dose lowering techniques and/or adjustment according to patient size were utilized for this exam. Comparison: Comparison is made to CT scan 07/23/2021 Findings: Areas of decreased attenuation are present in the periventricular and subcortical white matter bilate rally consistent with small vessel ischemic disease. Generalized cerebral atrophy with commensurate e nlargement of the ventricles, sulci, and cisterns is also present. There is no acute intracranial hem orrhage or evidence of acute territorial infarction. No shift of the midline structures, mass effect, or extra-axial abnormalities are shown. Atherosclerotic calcifications are present in the intracran ial segments of the internal carotid arteries. Encephalomalacia is noted most prominently in the bila teral temporal lobes. Imaged portions of the paranasal sinuses and mastoid air cells are clear. The orbits appear normal. There are no acute fractures of the calvaria or scalp swelling. Impression: No acute intracranial hemorrhage, no evidence of acute territorial infarction or other acute intracra nial disease process. ACT 112: Negative or not required by law. Electronically signed by: J Carlos Sutton M.D. 01/16/2022 1:10 PM
[2022-01-16] MEDS ORDERED: OPTIRAY 320 125ml IV ONE (16:10)
--- NOTE | 2022-01-16 16:28 | History & Physical Report ---
Date of Service January 16, 2022 Assessment & Plan (1) Frequent falls: Plan: -Admit to [facility] for observation -PT/OT consults for rehab vs possible placement -Disorientation and increased weakness does not appear to be infectious at this point, WBC 11.97, electrolytes are within normal ranges, afebrile, negative CT of the head, chest x-ray and UA. Right knee was swollen status post fall so ER proceeded to perform percutaneous tap and a small amount of fluid was sent to the lab for culture. -The patient was last seen by Rohit at home on 01/03/2022 where he had been doing well, mentioned in the note that he is on hospice care due to worsening dementia? But otherwise seems stable. At that point there was no further [facility] provider visits scheduled. - Fall precautions - Hx of alzheimers and vascular dementia on asa and plavix daily - denies LOC or hitting head with falls prior to this admission (2) CAD (coronary artery disease): (3) Hypertension: (4) Hyperlipidemia: (5) RBBB: (6) Paroxysmal atrial fibrillation: Plan: -Has previously followed with Dr. 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 -Continue on home asa 81 mg daily, plavix, Imdur 30 mg daily, metoprolol succinate 50 mg (7) DM (diabetes mellitus): Plan: - ISS with accuchecks earlines, holding metformin (8) Colon cancer: (9) Prostate carcinoma: Plan: - Hx of cancers as above, stable, in remission DVT ppx: cont asa, plavix Code: Full code Dispo: from home, likely to remain in the hospital x 1-2 days History of Present Illness Chief Complaint: Weakness Primary Care Provider: Victoria Saldana, DO This is an 86-year-old male with PMHx of HTN, HLD, RBBB, diastolic dysfunction, paroxysmal atrial fibrillation, history of prostate cancer, history of colon adenocarcinoma status post partial colectomy, adjustment disorder with depressed mood, mixed Alzheimers and vascular dementia, DM type II, diabetic neuropathy who presents to the hospital with acute onset of weakness and falls at home yesterday. His is present with him at baseline and states she is unable to care for him at home. He has previously been on hospice for his heart, however at this time she would like to revoke hospice to be able to participate in rehab and placement into a facility of her as she feels that she cannot care for him alone at home. Allergies Allergy/AdvReac Type Severity Reaction Status Date / Time hydrocodone AdvReac Intermediate MAKES PT Verified 01/16/22 14:58 HALLUCINATE meperidine AdvReac Intermediate psych Verified 01/16/22 14:58 complications oxycodone AdvReac Intermediate MAKES PT Verified 01/16/22 14:58 HALLUCINATES Home Medications Medication Instructions Recorded Confirmed Type aspirin 81 mg tablet,delayed 81 mg PO QAM 07/25/19 01/16/22 History release citalopram 20 mg tablet 20 mg PO QAM 07/25/19 01/16/22 History empagliflozin 25 mg tablet 25 mg PO QAM 07/25/19 01/16/22 History (Jardiance) gabapentin 100 mg capsule 100 mg PO BID 07/25/19 01/16/22 History meclizine 25 mg tablet 25 mg PO DAILY PRN 07/25/19 01/16/22 History metformin 500 mg tablet 500 mg PO BIDM 07/25/19 01/16/22 History multivitamin with minerals 1 tab PO QAM 07/25/19 01/16/22 History omega 4-gha-khh-fish oil 1,000 mg 1 cap PO QAM 07/25/19 01/16/22 History (120 mg-180 mg) capsule (Fish Oil) atorvastatin 40 mg tablet 40 mg PO QPM 07/23/21 01/16/22 History clopidogrel 75 mg tablet 75 mg PO DAILY 07/23/21 01/16/22 History donepezil 10 mg tablet 10 mg PO HS 07/23/21 01/16/22 History isosorbide mononitrate 30 mg 30 mg PO DAILY 07/23/21 01/16/22 History tablet,extended release 24 hr metoprolol succinate 50 mg 50 mg PO DAILY 07/23/21 01/16/22 History tablet,extended release 24 hr biotin 10 mg tablet 10 mg PO DAILY 01/16/22 01/16/22 History Past Med/Surg History Medical History CAD (coronary artery disease) Dementia Depression Diabetes mellitus, type 2 Diabetic neuropathy Hearing deficit History of colon cancer 2018--sx/oral chemo History of deep vein thrombosis (DVT) of lower extremity right leg---no blood thinners History of prostate cancer 2013--sx/radiation Hyperlipidemia Hypertension Myocardial Infarction hx of NSTEMI in setting of sepsis July [address] segment elevation myocardial manage medically, occurring in the setting of acute sepsis secondary abdominal abscess following colon resection for colon cancer. Sleep apnea cpap Surgical History H/O colectomy History of bilateral cataract extraction History [place] [facility] [place] History of left shoulder replacement History of open reduction and internal fixation (ORIF) procedure right ankle--no hardware History of prostate biopsy malignant History of prostatectomy d/t cancer History of revision of total replacement of right hip joint History of right shoulder replacement History of tooth extraction all teeth History of total left hip replacement History of total right hip replacement S/P cataract surgery S/P hip replacement Family History Denies family history of Heart disease Social History Smoking Status: Never smoker Number of Years Since Quit: 3; Second Hand Exposure: No; Hx Alcohol Use: Yes Alcohol type: beer Alcohol Intake Frequency Comment: few times per week Hx Substance Use: No Preferred Language: Wolof Communication Ability: Effective Ivory Carver Required: No Beliefs That Will Affect Care: None Current Living Situation: Spouse Feels Safe at Home: Yes Assistive Devices: Cane, Denture - Upper, Denture - Lower, Glasses and Hearing Aid - Bilateral Results & Data [facility] Vital Signs (Past 12 Hours) Vital Signs Temp Pulse Pulse Resp BP BP Pulse Ox 01/16/22 15:00 67 18 163/77 H 93 01/16/22 13:10 62 18 142/89 H 94 01/16/22 11:54 93 01/16/22 11:41 36.8 C 63 18 156/104 H 96 Supervising Physician Co-Signing Physician Notes Date of Service: January 16, 2022 History and physical exam performed by me. History provided by was at bedside. Patient had fallen at home and hit his right knee associated with right knee pain and swelling. not able to take care of him at home anymore due to that and would like placement for rehab. Physical exam notable for elderly man alert and oriented to person only, confused, follows simple commands. Right knee swelling and tenderness with limited range of movement due to tenderness. Labs only notable for WBC of 11,000. AGAP 13 CT head did not show any acute abnormalities Left knee x-ray noted small to moderate joint effusion without acute fracture or dislocation. Fall Ambulatory dysfunction Inability to care at home will like to revoke hospice for now so that patient can be placed as she c annot take care of him now with his fall and ambulatory dysfunction. Will like to maintain DNR Pain control PT/OT eval CM c/s Continue home meds Agree with other plans as detailed by Karis Shen PA-C (1) Hypertension Hypertension type: unspecified Qualified Code(s): I10 - Essential (primary) hypertension
--- NOTE | 2022-01-16 16:30 | CT Scan Report ---
CT angio LE RT w inc wo if don HISTORY: 86 years-old Male knee swelling acute pain and swelling of the right lower extremity COMPARISON: Right knee radiographs of same day TECHNIQUE: CTA of the right lower extremity was obtained following the intravenous ministration of 11 9 mL Optiray 320. 3-D coronal and sagittal MIPS were obtained from the axial data set and were submit mike for review. All measurements were obtained according to NASCET criteria. A dose lowering techniqu e was used consistent with the principals of BRODY. FINDINGS: There is a moderate sized joint fusion of the knee. Likely degenerative related synovial calcificatio ns are noted in addition to tricompartmental osteoarthritis which is mild within the lateral compartm ent and moderate within the medial and patellofemoral compartments. No acute fracture, dislocation, o sseous erosion or destructive bone lesion. There is additional osteoarthritis noted within the right foot and ankle. Complex 1.7 x 2.2 x 7.1 cm Navas's cyst. Moderate atrophy of the lower extremity musc ulature. Tendons and ligaments are not well evaluated by CT technique. No soft tissue mass lesions or discrete fluid collections are identified. No significant inflammatory changes. Atherosclerotic plaque is noted throughout the bilateral lower legs. No high-grade stenosis of the di stal superficial femoral or popliteal arteries. Multifocal high-grade stenoses are noted within the a nterior and posterior tibial arteries with three-vessel flow noted at the level of the ankle. The per cano artery is patent. Incidental note is made of multifocal stenoses of the left lower extremity ar terial structures. No aneurysm or dissection identified. IMPRESSION: 1. Atherosclerotic vascular disease with multifocal high-grade stenoses of the anterior and posterior tibial arteries. 2. Tricompartmental osteoarthritis of the right knee with moderate sized joint effusion. 3. No acute fracture identified. 4. Complex Navas's cyst containing internal debris versus hemorrhage. ACT 112: Negative or not required by law. The above report was generated using voice recognition software. It may contain grammatical, syntax o r spelling errors. Electronically signed by: Brenden Donald M.D. 01/16/2022 4:29 PM
--- NOTE | 2022-01-16 16:59 | Communication Note ---
Date of Service: January 16, 2022 History and physical exam performed by me. History provided by was at bedside. Patient had fallen at home and hit his right knee associated with right knee pain and swelling. not able to take care of him at home anymore due to that and would like placement for rehab. Physical exam notable for elderly man alert and oriented to person only, co nfused, follows simple commands. Right knee swelling and tenderness with limited range of movement due to tenderness. Labs only notable for WBC of 11,000. AGAP 13 CT head did not show any acute abnormalities Left knee x-ray noted small to moderate joint effusion without acute fracture or dislocation. Fall Ambulatory dysfunction Inability to care at home will like to revoke hospice for now so that patient can be placed as she cannot take care of him now with his fall and ambulatory dysfunction. Will like to maintain DNR Pain control PT/OT eval CM c/s Continue home meds Agree with other plans as detailed by Karis Shen PA-C
[2022-01-16] MEDS ORDERED: hydrALAZINE HCL 20 MG/ML VIAL IV PRN (18:13)
[2022-01-16] MEDS ORDERED: ACETAMINOPHEN 325 MG TAB PO PRN (21:09)
[2022-01-16] MEDS ORDERED: ONDANSETRON INJ 2 MG/ML 2 ML VIAL IV PRN (21:09)
[2022-01-16] MEDS ORDERED: GLUCOSE 40% GEL 15 GM TUBE PO PRN (21:09)
[2022-01-16] MEDS ORDERED: GLUCAGON FOR INJ 1 MG VIAL SQ PRN (21:09)
[2022-01-16] MEDS ORDERED: DEXTROSE 50% 50 ML SYRINGE IV PRN (21:09)
[2022-01-16] MEDS ORDERED: CARBOHYDRATES FOR HYPOGLYCEMIA PO PRN (21:09)
[2022-01-16] MEDS ORDERED: GLUCOSE 10 TAB/TUBE PO PRN (21:09)
[2022-01-16] MEDS: DONEPEZIL HCL 10 MG TAB PO SCH (22:12)
[2022-01-16] MEDS: ATORVASTATIN 40 MG TAB PO SCH (22:12)
[2022-01-16] MEDS: INSULIN ASPART PER UNIT SC SCH (22:13)
[2022-01-16] MEDS: GABAPENTIN 100 MG CAP PO SCH (22:13)
[2022-01-17] MEDS: ASPIRIN 81 MG ECTAB PO SCH (07:58)
[2022-01-17] MEDS: CLOPIDOGREL BISULFATE 75 MG TAB PO SCH (07:58)
[2022-01-17] MEDS: ISOSORBIDE MONO EXTENDED REL 30 MG TABCR PO SCH (07:58)
[2022-01-17] MEDS: GABAPENTIN 100 MG CAP PO SCH ×2 (07:58→20:32)
[2022-01-17] MEDS: CITALOPRAM 20 MG TAB PO SCH (07:58)
[2022-01-17] MEDS: METOPROLOL SUCC 50MG EXT REL TAB PO SCH (07:58)
[2022-01-17 08:28] LABS: Hematocrit (blood only) 44.5 % (42-52); Hemoglobin 14.9 g/dL (14.0-18.0); Mean Corpuscular Hemoglobin 29.6 pg (25-34); Mean Corpuscular Hgb Conc 33.5 g/dL (32-36); Mean Corpuscular Volume 88.3 fL (80-100); Mean Platelet Volume 11.1 fL (7.4-10.4); Platelet Count 165 K/uL (130-400); RDW Coefficient of Variation 15.5 % (11.5-14.5); RDW Standard Deviation 49.6 fL (36.4-46.3); Red Blood Count 5.04 M/uL (4.7-6.1); White Blood Count 10.54 K/uL (4.8-10.8)
[2022-01-17 08:32] LABS: Albumin Globulin Ratio 1.3 (0.9-2); Albumin Level 3.9 gm/dl (3.4-5.0); Calcium 9.3 mg/dl (8.5-10.1); Creatinine Clr Calc Pharmacy 79.5 ml/min; Est GFR (African American) 90.6 ml/min; Est GFR (Non-African American) 78.1 ml/min; Globulin 3.1 gm/dl (2.5-4.0); Potassium 3.9 mmol/L (3.5-5.1)
[2022-01-17] MEDS: INSULIN ASPART PER UNIT SC SCH ×4 (09:27→20:33)
--- NOTE | 2022-01-17 16:43 | Hospitalist Progress Note ---
Date of Service January 17, 2022 Assessment & Plan (1) Frequent falls: Plan: Recurrent falls at home including recent event which has damaged right knee. There is underlying right knee osteoarthritis. Joint aspiration of synovial fluid yesterday reveals negative gram stain with evidence of inflammation. 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 Continue with rest ice and scheduled Tylenol. NSAIDs cannot be given as he is on aspirin and Plavix. PT/OT ordered. Placement indicated as cannot take care of him at home anymore. (2) CAD (coronary artery disease): Plan: Chronic stable, continue medical management per home regimen. (3) Hypertension: Plan: Chronic, controlled. Heart healthy diet. Continue home medications. (4) Paroxysmal atrial fibrillation: Plan: -Has previously followed with Dr. 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 ISS with accuchmontrell hilton, holding metformin (6) Colon cancer: Plan: In remission, per oncology. (7) Prostate carcinoma: Plan: In remission, per oncology. (8) Obesity: (9) Dementia: Plan: Chronic, questionable vascular dementia versus Alzheimer's disease per records. Continues on Plavix and aspirin. Unable to stay at home with current resources. Looking for placement with this hospital stay. (10) DVT prophylaxis: Plan: Lovenox DNR/DNI Disposition-pending placement options Sonali Kaiser DO [facility] Hospitalist Admission and Anticipated Discharge Date Admission Date: January 16, 2022 Subjective 86-year-old man admitted after a fall and traumatic knee injury on the right. Synovial fluid was tapped and appears negative for infection. Right knee still warm and swollen with limited flexion patient reports minimal pain. Afebrile. Otherwise no issues today including no chest pain shortness of breath. Patient is disoriented to place and time Review of Systems Review of Systems: All systems reviewed and negative except as indicated above. Physical Exam Physical Exam: CONSTITUTIONAL: obese, vitals as above, generally well-appear ing, NAD EYES: normal conjunctivae, no scleral icterus ENT: external ear and nose normal, MMM NECK: trachea midline, RESPIRATORY: clear to auscultation bilaterally, no crackles, rales or wheezes, normal respiratory effort CARDIOVASCULAR: regular rate and rhythm, S1 and 2 heard without murmurs, gallops or rubs, no JVD, no peripheral edema, CHEST: inspection of chest was normal GASTROINTESTINAL: soft, nontender, ND, no guarding MUSCULOSKELETAL: 5/5 throughout, limited ROM of right leg at knee, R knee is swollen and warm to touch when compared to left. Head is normocephalic and atra umatic, neck supple, normal palpation of chest wall without tenderness SKIN: warm and dry, NEUROLOGIC: CN 2-12 grossly intact, no sensory deficit, normal cognition, normal speech, no tremor PSYCHIATRIC: alert cooperative and oriented to person only. Results & Data Results & Data ([facility]) Vital Signs (Past 12 Hours) Vital Signs Temp Pulse Resp BP BP Pulse Ox 01/17/22 15:28 36.9 C 71 18 125/69 91 01/17/22 07:30 36.5 C 68 16 118/77 96 Laboratory Results Short CBC 01/17/22 Range/Units 07:43 WBC 10.54 (4.8-10.8) K/uL Hgb 14.9 (14.0-18.0) g/dL Hct 44.5 (42-52) % Plt Count 165 (130-400) K/uL BMP 01/17/22 07:43 Sodium 142 Potassium 3.9 Chloride 108 H Carbon Dioxide 20 L BUN 27 H Creatinine 0.87 Glucose 137 H Calcium 9.3 Liver Function 01/17/22 Range/Units 07:43 Total Bilirubin 2.0 H (0.2-1.0) mg/dl AST 13 (13-39) U/L ALT 16 (7-52) U/L Alkaline Phosphatase 68 (34-104) U/L Albumin 3.9 (3.4-5.0) gm/dl Medications Administered Current Inpatient Medications Acetaminophen (Acetaminophen 500 Mg Tab) 1,000 mg PO Q8H LELO Stop: 02/16/22 16:29 Aspirin (Aspirin 81 Mg Ectab) 81 mg PO QAM LELO Stop: 02/16/22 08:59 Last Admin: 01/17/22 07:58 Dose: 81 mg Documented by: Atorvastatin Calcium (Atorvastatin 40 Mg Tab) 40 mg PO QPM LELO Stop: 02/15/22 21:08 Last Admin: 01/16/22 22:12 Dose: 40 mg Documented by: Citalopram Hydrobromide (Citalopram 20 Mg Tab) 20 mg PO QAM [facility] Stop: 02/16/22 08:59 Last Admin: 01/17/22 07:58 Dose: 20 mg Documented by: Clopidogrel Bisulfate (Clopidogrel Bisulfate 75 Mg Tab) 75 mg PO DAILY LELO Stop: 02/16/22 08:59 Last Admin: 01/17/22 07:58 Dose: 75 mg Documented by: Dextrose (Dextrose 50% 50 Ml Syringe) 25 - 50 ml IV UD PRN; Protocol PRN Reason: Hypoglycemia Protocol Stop: 02/15/22 21:08 Donepezil HCl (Donepezil Hcl 10 Mg Tab) 10 mg PO HS [facility] Stop: 02/15/22 21:08 Last Admin: 01/16/22 22:12 Dose: 10 mg Documented by: Gabapentin (Gabapentin 100 Mg Cap) 100 mg PO BID LELO Stop: 02/15/22 21:08 Last Admin: 01/17/22 07:58 Dose: 100 mg Documented by: Glucagon (Glucagon For Inj 1 Mg Vial) 1 mg SQ UD PRN; Protocol PRN Reason: Hypoglycemia Protocol Stop: 02/15/22 21:08 Glucose (Glucose 10 Tabs/Tube) 4 - 8 tabs PO UD PRN; Protocol PRN Reason: Hypoglycemia Protocol Stop: 02/15/22 21:08 Glucose (Glucose 40% Gel 15 Gm Tube) 15 - 30 gm PO UD PRN; Protocol PRN Reason: Hypoglycemia Protocol Stop: 02/15/22 21:08 Hydralazine HCl (Hydralazine Hcl 20 Mg/Ml Vial) 5 mg IV Q6H PRN PRN Reason: hypertension Stop: 02/15/22 18:14 Insulin Aspart (Insulin Aspart Per Unit) 0 units SC ACHS [facility] Stop: 02/15/22 21:08 Last Admin: 01/17/22 13:00 Dose: 4 units Documented by: Isosorbide Mononitrate (Isosorbide Martin Extended Rel 30 Mg Tabcr) 30 mg PO DAILY [facility] Stop: 02/16/22 08:59 Last Admin: 01/17/22 07:58 Dose: 30 mg Documented by: Metoprolol Succinate (Metoprolol Succ 50mg Ext Rel Tab) 50 mg PO DAILY [facility] Stop: 02/16/22 08:59 Last Admin: 01/17/22 07:58 Dose: 50 mg Documented by: Miscellaneous (Carbohydrates For Hypoglycemia ) 15 - 30 gm PO UD PRN PRN Reason: Hypoglycemia Protocol Stop: 02/15/22 21:08 Ondansetron HCl (Ondansetron Inj 2 Mg/Ml 2 Ml Vial) 4 mg IV Q4H PRN PRN Reason: Nausea And Vomiting Stop: 02/15/22 21:08 (1) Hypertension Hypertension type: unspecified Qualified Code(s): I10 - Essential (primary) hypertension (2) Dementia Dementia behavioral disturbance: without behavioral disturbance Dementia type: unspecified type Qualified Code(s): F03.90 - Unspecified dementia without behavioral disturbance
[2022-01-17] MEDS: ACETAMINOPHEN 500 MG TAB PO SCH (17:14)
[2022-01-17] MEDS: DONEPEZIL HCL 10 MG TAB PO SCH (20:32)
[2022-01-17] MEDS: ATORVASTATIN 40 MG TAB PO SCH (20:32)
[2022-01-18] MEDS: ACETAMINOPHEN 500 MG TAB PO SCH ×4 (01:55→23:48)
[2022-01-18] MEDS: ENOXAPARIN INJ 40 MG/0.4 ML SYR SQ SCH (08:33)
[2022-01-18] MEDS: METOPROLOL SUCC 50MG EXT REL TAB PO SCH (08:33)
[2022-01-18] MEDS: CITALOPRAM 20 MG TAB PO SCH (08:33)
[2022-01-18] MEDS: GABAPENTIN 100 MG CAP PO SCH ×2 (08:33→20:53)
[2022-01-18] MEDS: ISOSORBIDE MONO EXTENDED REL 30 MG TABCR PO SCH (08:33)
[2022-01-18] MEDS: CLOPIDOGREL BISULFATE 75 MG TAB PO SCH (08:33)
[2022-01-18] MEDS: ASPIRIN 81 MG ECTAB PO SCH (08:33)
[2022-01-18] MEDS: INSULIN ASPART PER UNIT SC SCH ×4 (08:34→20:54)
--- NOTE | 2022-01-18 13:25 | Hospitalist Progress Note ---
Date of Service January 18, 2022 Assessment & Plan (1) Frequent falls: Plan: Recurrent falls at home including recent event which has damaged right knee. There is underlying right knee osteoarthritis. Joint aspiration of synovial fluid yesterday reveals negative gram stain with evidence of inflammation. 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 Continue with rest ice and scheduled Tylenol. NSAIDs cannot be given as he is on aspirin and Plavix. PT/OT ordered. Placement indicated as cannot take care of him at home anymore. (2) Traumatic arthritis of left knee: Plan: plan as above. (3) CAD (coronary artery disease): Plan: Chronic stable, continue medical management per home regimen. (4) Hypertension: Plan: Chronic, controlled. Heart healthy diet. Continue home medications. (5) Paroxysmal atrial fibrillation: Plan: -Has previously followed with Dr. 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 ISS with ujwan hilton, holding metformin (7) Colon cancer: Plan: In remission, per oncology. (8) Prostate carcinoma: Plan: In remission, per oncology. (9) Obesity: (10) Dementia: Plan: Chronic, questionable vascular dementia versus Alzheimer's disease per records. Continues on Plavix and aspirin. Unable to stay at home with current resources. Looking for placement with this hospital stay. (11) DVT prophylaxis: Plan: Lovenox DNR/DNI Disposition-pending placement options [facility] and Anticipated Discharge Date Admission Date: January 17, 2022 Subjective 86-year-old man admitted after a fall and traumatic knee injury on the right. Synovial fluid was tapped and appears negative for infection. Afebrile. Otherwise no issues today including no chest pain shortness of breath. Denies L knee pain which looks improved. Reports getting OOB to chair on his own volition. Review of Systems Review of Systems: All systems reviewed and negative except as indicated above. Physical Exam Physical Exam: CONSTITUTIONAL: obese, vitals as above, generally well- appearing, NAD EYES: normal conjunctivae, no scleral icterus ENT: external ear and nose normal, MMM NECK: trachea midline, RESPIRATORY: clear to auscultation bilaterally, no crackles, rales or wheezes, normal respiratory effort CARDIOVASCULAR: regular rate and rhythm, S1 and 2 heard without murmurs, ga llops or rubs, no JVD, no peripheral edema, CHEST: inspection of chest was normal GASTROINTESTINAL: soft, nontender, ND, no guarding MUSCULOSKELETAL: 5/5 throughout, limited ROM of right leg at knee, R knee is less swollen and less warm to touch when compared to yesterday. Head is normocephalic and atraumatic, neck supple, normal palpation of chest wall without tenderness SKIN: warm and dry, NEUROLOGIC: CN 2-12 grossly intact, no sensory deficit, normal cognition, normal speech, no tremor PSYCHIATRIC: alert cooperative and oriented to person only. Results & Data Results & Data ([facility]) Vital Signs (Past 12 Hours) Vital Signs Temp Pulse Resp BP Pulse Ox 01/18/22 07:30 36.4 C L 73 18 131/70 94 Medications Administered Current Inpatient Medications Acetaminophen (Acetaminophen 500 Mg Tab) 1,000 mg PO Q8H [facility]O Stop: 02/16/22 16:29 Last Admin: 01/18/22 08:38 Dose: 1,000 mg Documented by: Aspirin (Aspirin 81 Mg Ectab) 81 mg PO QAM [facility] Stop: 02/16/22 08:59 Last Admin: 01/18/22 08:33 Dose: 81 mg Documented by: Atorvastatin Calcium (Atorvastatin 40 Mg Tab) 40 mg PO QPM [facility] Stop: 02/15/22 21:08 Last Admin: 01/17/22 20:32 Dose: 40 mg Documented by: Citalopram Hydrobromide (Citalopram 20 Mg Tab) 20 mg PO QAM [facility] Stop: 02/16/22 08:59 Last Admin: 01/18/22 08:33 Dose: 20 mg Documented by: Clopidogrel Bisulfate (Clopidogrel Bisulfate 75 Mg Tab) 75 mg PO DAILY LELO Stop: 02/16/22 08:59 Last Admin: 01/18/22 08:33 Dose: 75 mg Documented by: Dextrose (Dextrose 50% 50 Ml Syringe) 25 - 50 ml IV UD PRN; Protocol PRN Reason: Hypoglycemia Protocol Stop: 02/15/22 21:08 Donepezil HCl (Donepezil Hcl 10 Mg Tab) 10 mg PO HS [facility]O Stop: 02/15/22 21:08 Last Admin: 01/17/22 20:32 Dose: 10 mg Documented by: Enoxaparin Sodium (Enoxaparin Inj 40 Mg/0.4 Ml Syr) 40 mg SQ QAM [facility] Stop: 02/17/22 08:59 Last Admin: 01/18/22 08:33 Dose: 40 mg Documented by: Gabapentin (Gabapentin 100 Mg Cap) 100 mg PO BID LELO Stop: 02/15/22 21:08 Last Admin: 01/18/22 08:33 Dose: 100 mg Documented by: Glucagon (Glucagon For Inj 1 Mg Vial) 1 mg SQ UD PRN; Protocol PRN Reason: Hypoglycemia Protocol Stop: 02/15/22 21:08 Glucose (Glucose 10 Tabs/Tube) 4 - 8 tabs PO UD PRN; Protocol PRN Reason: Hypoglycemia Protocol Stop: 02/15/22 21:08 Glucose (Glucose 40% Gel 15 Gm Tube) 15 - 30 gm PO UD PRN; Protocol PRN Reason: Hypoglycemia Protocol Stop: 02/15/22 21:08 Hydralazine HCl (Hydralazine Hcl 20 Mg/Ml Vial) 5 mg IV Q6H PRN PRN Reason: hypertension Stop: 02/15/22 18:14 Insulin Aspart (Insulin Aspart Per Unit) 0 units SC ACHS [facility] Stop: 02/15/22 21:08 Last Admin: 01/18/22 12:59 Dose: 4 units Documented by: Isosorbide Mononitrate (Isosorbide [place] Extended Rel 30 Mg Tabcr) 30 mg PO DAILY LELO Stop: 02/16/22 08:59 Last Admin: 01/18/22 08:33 Dose: 30 mg Documented by: Metoprolol Succinate (Metoprolol Succ 50mg Ext Rel Tab) 50 mg PO DAILY LELO Stop: 02/16/22 08:59 Last Admin: 01/18/22 08:33 Dose: 50 mg Documented by: Miscellaneous (Carbohydrates For Hypoglycemia ) 15 - 30 gm PO UD PRN PRN Reason: Hypoglycemia Protocol Stop: 02/15/22 21:08 Ondansetron HCl (Ondansetron Inj 2 Mg/Ml 2 Ml Vial) 4 mg IV Q4H PRN PRN Reason: Nausea And Vomiting Stop: 02/15/22 21:08 (1) Dementia Dementia behavioral disturbance: without behavioral disturbance Dementia type: unspecified type Qualified Code(s): F03.90 - Unspecified dementia without behavioral disturbance (2) Hypertension Hypertension type: unspecified Qualified Code(s): I10 - Essential (primary) hypertension
[2022-01-18] MEDS: DONEPEZIL HCL 10 MG TAB PO SCH (20:53)
[2022-01-18] MEDS: ATORVASTATIN 40 MG TAB PO SCH (20:53)
[2022-01-19] MEDS: CITALOPRAM 20 MG TAB PO SCH (08:24)
[2022-01-19] MEDS: GABAPENTIN 100 MG CAP PO SCH ×2 (08:24→21:12)
[2022-01-19] MEDS: METOPROLOL SUCC 50MG EXT REL TAB PO SCH (08:24)
[2022-01-19] MEDS: ISOSORBIDE MONO EXTENDED REL 30 MG TABCR PO SCH (08:25)
[2022-01-19] MEDS: ENOXAPARIN INJ 40 MG/0.4 ML SYR SQ SCH (08:25)
[2022-01-19] MEDS: ASPIRIN 81 MG ECTAB PO SCH (08:25)
[2022-01-19] MEDS: CLOPIDOGREL BISULFATE 75 MG TAB PO SCH (08:25)
[2022-01-19] MEDS: INSULIN ASPART PER UNIT SC SCH ×4 (08:29→21:40)
[2022-01-19] MEDS: ACETAMINOPHEN 500 MG TAB PO SCH ×3 (08:33→23:41)
--- NOTE | 2022-01-19 13:25 | Hospitalist Progress Note ---
Date of Service January 19, 2022 Assessment & Plan (1) Frequent falls: Plan: Recurrent falls at home including recent event which has damaged right knee. There is underlying right knee osteoarthritis. Joint aspiration of synovial fluid yesterday reveals negative gram stain with evidence of inflammation. 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 Continue with rest ice and scheduled Tylenol. NSAIDs cannot be given as he is on aspirin and Plavix. PT/OT ordered. Placement indicated as cannot take care of him at home anymore. (2) Traumatic arthritis of left knee: Plan: plan as above. (3) CAD (coronary artery disease): Plan: Chronic stable, continue medical management per home regimen. (4) Hypertension: Plan: Chronic, controlled. Heart healthy diet. Continue home medications. (5) Paroxysmal atrial fibrillation: Plan: -Has previously followed with Dr. 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 ISS with juwan hilton, holding metformin (7) Colon cancer: Plan: In remission, per oncology. (8) Prostate carcinoma: Plan: In remission, per oncology. (9) Obesity: (10) Dementia: Plan: Chronic, questionable vascular dementia versus Alzheimer's disease per records. Continues on Plavix and aspirin. Unable to stay at home with current resources. Looking for placement with this hospital stay. (11) DVT prophylaxis: Plan: Lovenox DNR/DNI Disposition-pending placement options Sonali Kaiser DO [facility]ist Admission and Anticipated Discharge Date Admission Date: January 17, 2022 Subjective 86-year-old man admitted after a fall and traumatic knee injury on the right. Synovial fluid was tapped and appears negative for infection. Afebrile. Otherwise no issues today including no chest pain shortness of breath. Some pain with flexing the knee but otherwise he is doing well. Frustrated because he feels trapped in bed. Review of Systems Review of Systems: All systems reviewed and negative except as indicated above. Physical Exam Physical Exam: CONSTITUTIONAL: obese, vitals as above, generally well- appearing, NAD EYES: normal conjunctivae, no scleral icterus ENT: external ear and nose normal, MMM NECK: trachea midline, RESPIRATORY: clear to auscultation bilaterally, no crackles, rales or wheezes, normal respiratory effort CARDIOVASCULAR: regular rate and rhythm, S1 and 2 heard without murmurs, gallops or rubs, no JVD, no peripheral edema, CHEST: inspection of chest was normal GASTROINTESTINAL: soft, nontender, ND, no guarding MUSCULOSKELETAL: 5/5 throughout, increased ROM WRT flexion of the right knee, R knee is less swollen and less warm to touch when compared to yesterday. Head is normocephalic and atraumatic, neck supple, normal palpation of chest wall without tenderness SKIN: warm and dry, NEUROLOGIC: CN 2-12 grossly intact, no sensory deficit, normal cognition, normal speech, no tremor PSYCHIATRIC: alert cooperative and oriented to person only. Results & Data Results & Data ([facility]) Vital Signs (Past 12 Hours) Vital Signs Temp Pulse Resp BP Pulse Ox 01/19/22 07:08 36.4 C L 70 20 124/79 95 Medications Administered Current Inpatient Medications Acetaminophen (Acetaminophen 500 Mg Tab) 1,000 mg PO Q8H L[facility]O Stop: 02/16/22 16:29 Last Admin: 01/19/22 08:33 Dose: 1,000 mg Documented by: Aspirin (Aspirin 81 Mg Ectab) 81 mg PO QAM [facility] Stop: 02/16/22 08:59 Last Admin: 01/19/22 08:25 Dose: 81 mg Documented by: Atorvastatin Calcium (Atorvastatin 40 Mg Tab) 40 mg PO QPM [facility]O Stop: 02/15/22 21:08 Last Admin: 01/18/22 20:53 Dose: 40 mg Documented by: Citalopram Hydrobromide (Citalopram 20 Mg Tab) 20 mg PO QAM [facility]O Stop: 02/16/22 08:59 Last Admin: 01/19/22 08:24 Dose: 20 mg Documented by: Clopidogrel Bisulfate (Clopidogrel Bisulfate 75 Mg Tab) 75 mg PO DAILY L[facility]O Stop: 02/16/22 08:59 Last Admin: 01/19/22 08:25 Dose: 75 mg Documented by: Dextrose (Dextrose 50% 50 Ml Syringe) 25 - 50 ml IV UD PRN; Protocol PRN Reason: Hypoglycemia Protocol Stop: 02/15/22 21:08 Donepezil HCl (Donepezil Hcl 10 Mg Tab) 10 mg PO HS [facility] Stop: 02/15/22 21:08 Last Admin: 01/18/22 20:53 Dose: 10 mg Documented by: Enoxaparin Sodium (Enoxaparin Inj 40 Mg/0.4 Ml Syr) 40 mg SQ QAM [facility] Stop: 02/17/22 08:59 Last Admin: 01/19/22 08:25 Dose: 40 mg Documented by: Gabapentin (Gabapentin 100 Mg Cap) 100 mg PO BID [facility]O Stop: 02/15/22 21:08 Last Admin: 01/19/22 08:24 Dose: 100 mg Documented by: Glucagon (Glucagon For Inj 1 Mg Vial) 1 mg SQ UD PRN; Protocol PRN Reason: Hypoglycemia Protocol Stop: 02/15/22 21:08 Glucose (Glucose 10 Tabs/Tube) 4 - 8 tabs PO UD PRN; Protocol PRN Reason: Hypoglycemia Protocol Stop: 02/15/22 21:08 Glucose (Glucose 40% Gel 15 Gm Tube) 15 - 30 gm PO UD PRN; Protocol PRN Reason: Hypoglycemia Protocol Stop: 02/15/22 21:08 Hydralazine HCl (Hydralazine Hcl 20 Mg/Ml Vial) 5 mg IV Q6H PRN PRN Reason: hypertension Stop: 02/15/22 18:14 Insulin Aspart (Insulin Aspart Per Unit) 0 units SC ACHS [facility] Stop: 02/15/22 21:08 Last Admin: 01/19/22 13:10 Dose: 5 units Documented by: Isosorbide Mononitrate (Isosorbide [place] Extended Rel 30 Mg Tabcr) 30 mg PO DAILY [facility] Stop: 02/16/22 08:59 Last Admin: 01/19/22 08:25 Dose: 30 mg Documented by: Metoprolol Succinate (Metoprolol Succ 50mg Ext Rel Tab) 50 mg PO DAILY [facility]O Stop: 02/16/22 08:59 Last Admin: 01/19/22 08:24 Dose: 50 mg Documented by: Miscellaneous (Carbohydrates For Hypoglycemia ) 15 - 30 gm PO UD PRN PRN Reason: Hypoglycemia Protocol Stop: 02/15/22 21:08 Ondansetron HCl (Ondansetron Inj 2 Mg/Ml 2 Ml Vial) 4 mg IV Q4H PRN PRN Reason: Nausea And Vomiting Stop: 02/15/22 21:08 (1) Dementia Dementia behavioral disturbance: without behavioral disturbance Dementia type: unspecified type Qualified Code(s): F03.90 - Unspecified dementia without behavioral disturbance (2) Hypertension Hypertension type: unspecified Qualified Code(s): I10 - Essential (primary) hypertension
[2022-01-19] MEDS: DONEPEZIL HCL 10 MG TAB PO SCH (21:12)
[2022-01-19] MEDS: ATORVASTATIN 40 MG TAB PO SCH (21:12)
[2022-01-20] MEDS: METOPROLOL SUCC 50MG EXT REL TAB PO SCH (08:44)
[2022-01-20] MEDS: CLOPIDOGREL BISULFATE 75 MG TAB PO SCH (08:44)
[2022-01-20] MEDS: GABAPENTIN 100 MG CAP PO SCH ×2 (08:44→20:50)
[2022-01-20] MEDS: ASPIRIN 81 MG ECTAB PO SCH (08:45)
[2022-01-20] MEDS: CITALOPRAM 20 MG TAB PO SCH (08:45)
[2022-01-20] MEDS: ISOSORBIDE MONO EXTENDED REL 30 MG TABCR PO SCH (08:45)
[2022-01-20] MEDS: INSULIN ASPART PER UNIT SC SCH ×4 (08:45→21:00)
[2022-01-20] MEDS: ENOXAPARIN INJ 40 MG/0.4 ML SYR SQ SCH (08:54)
[2022-01-20] MEDS: ACETAMINOPHEN 500 MG TAB PO SCH ×2 (08:58→18:06)
[2022-01-20] MEDS ORDERED: MAGNESIUM HYDROXIDE SUSP 30 ML UDC PO ONE (12:43)
--- NOTE | 2022-01-20 14:21 | Hospitalist Progress Note ---
Date of Service January 20, 2022 Assessment & Plan (1) Frequent falls: Plan: Recurrent falls at home including recent event which has damaged right knee. There is underlying right knee osteoarthritis. Joint aspiration of synovial fluid yesterday 01/18 revealed negative gram stain with evidence of inflammation. 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 Continue with rest ice and scheduled Tylenol. NSAIDs cannot be given as he is on aspirin and Plavix. PT/OT ordered. Placement indicated as cannot take care of him at home anymore. Will try local Diclofenac Constipation Will try milk of magnesia today Advised more ambulation (2) Traumatic arthritis of left knee: Plan: plan as above. (3) CAD (coronary artery disease): Plan: Chronic stable, continue medical management per home regimen. (4) Hypertension: Plan: Chronic, controlled. Heart healthy diet. Continue home medications. (5) Paroxysmal atrial fibrillation: Plan: -Has previously followed with Dr. 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 ISS with accuchecks achs, holding metformin (7) Colon cancer: Plan: In remission, per oncology. (8) Prostate carcinoma: Plan: In remission, per oncology. (9) Obesity: (10) Dementia: Plan: Chronic, questionable vascular dementia versus Alzheimer's disease per records. Continues on Plavix and aspirin. Unable to stay at home with current resources. Looking for placement with this hospital stay. (11) DVT prophylaxis: Plan: Lovenox DNR/DNI Disposition-pending placement options Admission and Anticipated Discharge Date Admission Date: January 17, 2022 Subjective 01/20/2022 Patient was seen and examined in medical floor He complains to have constipation without any abdominal distention, nausea and or vomiting His right knee pain is much improved Review of Systems Review of Systems: All systems reviewed and are unremarkable except as noted below Gastrointestinal: Constipation Musculoskeletal: Mild to moderate right knee pain with swelling Physical Exam Physical Exam: Lying in bed comfortably Constitutional: well developed, well nourished and + obese; not ill appearing Eyes: PERRL, conjunctivae normal, anicteric sclerae ENMT: external ear and nose normal, oropharynx normal Neck: trachea midline, no thyromegaly Respiratory: no respiratory distress Auscultation: lungs clear to auscultation bilaterally Cardiovascular: Rate/Rhythm: regular rate and regular rhythm; not tachycardic Heart Sounds: normal S1 and normal S2; no murmur Extremities: + edema (Trace edema bilaterally) Gastrointestinal (Abdomen): Inspection/Auscultation: normal bowel sounds; abdomen not distended Percussion/Palpation: abdomen soft; abdomen nontender Musculoskeletal: Knee: + knee abnormal to inspection (Right knee is swollen with minimal amount of joint fluid on clinical examin) and + limited ROM of knee (But no significant pain) Neurologic: normal touch/pain/proprioception and moves all extremities Psychiatric: A+Ox3, euthymic affect Lymphatic: no cervical or axillary lymphadenopathy Results & Data Results & Data ([facility]) Vital Signs (Past 12 Hours) Vital Signs Temp Pulse Resp BP Pulse Ox 01/20/22 07:37 36.5 C 62 16 158/82 H 95 Medications Administered Current Inpatient Medications Acetaminophen (Acetaminophen 500 Mg Tab) 1,000 mg PO Q8H [facility] Stop: 02/16/22 16:29 Last Admin: 01/20/22 08:58 Dose: 1,000 mg Documented by: Aspirin (Aspirin 81 Mg Ectab) 81 mg PO QAM [facility] Stop: 02/16/22 08:59 Last Admin: 01/20/22 08:45 Dose: 81 mg Documented by: Atorvastatin Calcium (Atorvastatin 40 Mg Tab) 40 mg PO QPM [facility]O Stop: 02/15/22 21:08 Last Admin: 01/19/22 21:12 Dose: 40 mg Documented by: Citalopram Hydrobromide (Citalopram 20 Mg Tab) 20 mg PO QAM [facility] Stop: 02/16/22 08:59 Last Admin: 01/20/22 08:45 Dose: 20 mg Documented by: Clopidogrel Bisulfate (Clopidogrel Bisulfate 75 Mg Tab) 75 mg PO DAILY [facility]O Stop: 02/16/22 08:59 Last Admin: 01/20/22 08:44 Dose: 75 mg Documented by: Dextrose (Dextrose 50% 50 Ml Syringe) 25 - 50 ml IV UD PRN; Protocol PRN Reason: Hypoglycemia Protocol Stop: 02/15/22 21:08 Donepezil HCl (Donepezil Hcl 10 Mg Tab) 10 mg PO HS [facility]O Stop: 02/15/22 21:08 Last Admin: 01/19/22 21:12 Dose: 10 mg Documented by: Enoxaparin Sodium (Enoxaparin Inj 40 Mg/0.4 Ml Syr) 40 mg SQ QAM [facility] Stop: 02/17/22 08:59 Last Admin: 01/20/22 08:54 Dose: 40 mg Documented by: Gabapentin (Gabapentin 100 Mg Cap) 100 mg PO BID [facility]O Stop: 02/15/22 21:08 Last Admin: 01/20/22 08:44 Dose: 100 mg Documented by: Glucagon (Glucagon For Inj 1 Mg Vial) 1 mg SQ UD PRN; Protocol PRN Reason: Hypoglycemia Protocol Stop: 02/15/22 21:08 Glucose (Glucose 10 Tabs/Tube) 4 - 8 tabs PO UD PRN; Protocol PRN Reason: Hypoglycemia Protocol Stop: 02/15/22 21:08 Glucose (Glucose 40% Gel 15 Gm Tube) 15 - 30 gm PO UD PRN; Protocol PRN Reason: Hypoglycemia Protocol Stop: 02/15/22 21:08 Hydralazine HCl (Hydralazine Hcl 20 Mg/Ml Vial) 5 mg IV Q6H PRN PRN Reason: hypertension Stop: 02/15/22 18:14 Insulin Aspart (Insulin Aspart Per Unit) 0 units SC ACHS [facility] Stop: 02/15/22 21:08 Last Admin: 01/20/22 12:35 Dose: 5 units Documented by: Isosorbide Mononitrate (Isosorbide [place] Extended Rel 30 Mg Tabcr) 30 mg PO DAILY [facility]O Stop: 02/16/22 08:59 Last Admin: 01/20/22 08:45 Dose: 30 mg Documented by: Metoprolol Succinate (Metoprolol Succ 50mg Ext Rel Tab) 50 mg PO DAILY [facility]O Stop: 02/16/22 08:59 Last Admin: 01/20/22 08:44 Dose: 50 mg Documented by: Miscellaneous (Carbohydrates For Hypoglycemia ) 15 - 30 gm PO UD PRN PRN Reason: Hypoglycemia Protocol Stop: 02/15/22 21:08 Ondansetron HCl (Ondansetron Inj 2 Mg/Ml 2 Ml Vial) 4 mg IV Q4H PRN PRN Reason: Nausea And Vomiting Stop: 02/15/22 21:08 (1) Hypertension Hypertension type: unspecified Qualified Code(s): I10 - Essential (primary) hypertension (2) Dementia Dementia behavioral disturbance: without behavioral disturbance Dementia type: unspecified type Qualified Code(s): F03.90 - Unspecified dementia without behavioral disturbance
[2022-01-20] MEDS: DONEPEZIL HCL 10 MG TAB PO SCH (20:50)
[2022-01-20] MEDS: ATORVASTATIN 40 MG TAB PO SCH (20:50)
[2022-01-21] MEDS: ACETAMINOPHEN 500 MG TAB PO SCH ×3 (01:13→17:17)
[2022-01-21] MEDS: INSULIN ASPART PER UNIT SC SCH ×4 (08:46→20:52)
[2022-01-21] MEDS: ISOSORBIDE MONO EXTENDED REL 30 MG TABCR PO SCH (08:47)
[2022-01-21] MEDS: METOPROLOL SUCC 50MG EXT REL TAB PO SCH (08:47)
[2022-01-21] MEDS: CLOPIDOGREL BISULFATE 75 MG TAB PO SCH (08:47)
[2022-01-21] MEDS: GABAPENTIN 100 MG CAP PO SCH ×2 (08:47→20:03)
[2022-01-21] MEDS: ASPIRIN 81 MG ECTAB PO SCH (08:47)
[2022-01-21] MEDS: ENOXAPARIN INJ 40 MG/0.4 ML SYR SQ SCH (08:47)
[2022-01-21] MEDS: CITALOPRAM 20 MG TAB PO SCH (08:47)
--- NOTE | 2022-01-21 17:01 | Hospitalist Progress Note ---
Date of Service January 21, 2022 Assessment & Plan (1) Frequent falls: Plan: Recurrent falls at home including recent event which has damaged right knee. There is underlying right knee osteoarthritis. Joint aspiration of synovial fluid yesterday 01/18 revealed negative gram stain with evidence of inflammation. 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 Continue with rest ice and scheduled Tylenol. NSAIDs cannot be given as he is on aspirin and Plavix. PT/OT ordered. Placement indicated as cannot take care of him at home anymore. Will try local Diclofenac Has been getting PT and OT-recommended rehab He was accepted in [facility] but cannot be transferred due to COVID outbreak at the facility We will continue with PT and OT and see if he can go home Constipation Will try milk of magnesia today Advised more ambulation (2) Traumatic arthritis of left knee: Plan: plan as above. Left knee has improved a lot and no pain with movement (3) CAD (coronary artery disease): Plan: Chronic stable, continue medical management per home regimen. (4) Hypertension: Plan: Chronic, controlled. Heart healthy diet. Continue home medications. (5) Paroxysmal atrial fibrillation: Plan: -Has previously followed with Dr. 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 ISS with accuchecks achs, holding metformin (7) Colon cancer: Plan: In remission, per oncology. (8) Prostate carcinoma: Plan: In remission, per oncology. (9) Obesity: (10) Dementia: Plan: Chronic, questionable vascular dementia versus Alzheimer's disease per records. Continues on Plavix and aspirin. Unable to stay at home with current resources. Looking for placement with this hospital stay. (11) DVT prophylaxis: Plan: Lovenox DNR/DNI Disposition-pending placement options Admission and Anticipated Discharge Date Admission Date: January 17, 2022 Subjective 01/20/2022 Patient was seen and examined in medical floor He complains to have constipation without any abdominal distention, nausea and or vomiting His right knee pain is much improved 01/21/2022 The patient was seen and examined in medical floor He has been feeling much better but he still has pain in the right knee Has been waiting to go to rehab for short-term Cannot be transferred due to COVID outbreak at the facility Review of Systems Review of Systems: All systems reviewed and are unremarkable except as noted below Gastrointestinal: Constipation Musculoskeletal: Mild to moderate right knee pain with swelling Physical Exam Physical Exam: Lying in bed comfortably Constitutional: well developed, well nourished and + obese; not ill appearing Eyes: PERRL, conjunctivae normal, anicteric sclerae ENMT: external ear and nose normal, oropharynx normal Neck: trachea midline, no thyromegaly Respiratory: no respiratory distress Auscultation: lungs clear to auscultation bilaterally Cardiovascular: Rate/Rhythm: regular rate and regular rhythm; not tachycardic Heart Sounds: normal S1 and normal S2; no murmur Extremities: + edema (Trace edema bilaterally) Gastrointestinal (Abdomen): Inspection/Auscultation: normal bowel sounds; abdomen not distended Percussion/Palpation: abdomen soft; abdomen nontender Musculoskeletal: Knee: + knee abnormal to inspection (Right knee is swollen with minimal amount of joint fluid on clinical examin) and + limited ROM of knee (But no significant pain) Neurologic: normal touch/pain/proprioception and moves all extremities Psychiatric: A+Ox3, euthymic affect Lymphatic: no cervical or axillary lymphadenopathy Results & Data Results & Data ([facility]) Vital Signs (Past 12 Hours) Vital Signs Temp Pulse Resp BP Pulse Ox 01/21/22 14:32 36.5 C 80 16 158/67 H 98 01/21/22 07:43 36.6 C 67 16 167/91 H 95 Medications Administered Current Inpatient Medications Acetaminophen (Acetaminophen 500 Mg Tab) 1,000 mg PO Q8H [facility] Stop: 02/16/22 16:29 Last Admin: 01/21/22 08:47 Dose: 1,000 mg Documented by: Aspirin (Aspirin 81 Mg Ectab) 81 mg PO QAM [facility] Stop: 02/16/22 08:59 Last Admin: 01/21/22 08:47 Dose: 81 mg Documented by: Atorvastatin Calcium (Atorvastatin 40 Mg Tab) 40 mg PO QPM [facility] Stop: 02/15/22 21:08 Last Admin: 01/20/22 20:50 Dose: 40 mg Documented by: Citalopram Hydrobromide (Citalopram 20 Mg Tab) 20 mg PO QAM [facility] Stop: 02/16/22 08:59 Last Admin: 01/21/22 08:47 Dose: 20 mg Documented by: Clopidogrel Bisulfate (Clopidogrel Bisulfate 75 Mg Tab) 75 mg PO DAILY [facility] Stop: 02/16/22 08:59 Last Admin: 01/21/22 08:47 Dose: 75 mg Documented by: Dextrose (Dextrose 50% 50 Ml Syringe) 25 - 50 ml IV UD PRN; Protocol PRN Reason: Hypoglycemia Protocol Stop: 02/15/22 21:08 Donepezil HCl (Donepezil Hcl 10 Mg Tab) 10 mg PO HS [facility] Stop: 02/15/22 21:08 Last Admin: 01/20/22 20:50 Dose: 10 mg Documented by: Enoxaparin Sodium (Enoxaparin Inj 40 Mg/0.4 Ml Syr) 40 mg SQ QAM [facility] Stop: 02/17/22 08:59 Last Admin: 01/21/22 08:47 Dose: 40 mg Documented by: Gabapentin (Gabapentin 100 Mg Cap) 100 mg PO BID [facility] Stop: 02/15/22 21:08 Last Admin: 01/21/22 08:47 Dose: 100 mg Documented by: Glucagon (Glucagon For Inj 1 Mg Vial) 1 mg SQ UD PRN; Protocol PRN Reason: Hypoglycemia Protocol Stop: 02/15/22 21:08 Glucose (Glucose 10 Tabs/Tube) 4 - 8 tabs PO UD PRN; Protocol PRN Reason: Hypoglycemia Protocol Stop: 02/15/22 21:08 Glucose (Glucose 40% Gel 15 Gm Tube) 15 - 30 gm PO UD PRN; Protocol PRN Reason: Hypoglycemia Protocol Stop: 02/15/22 21:08 Hydralazine HCl (Hydralazine Hcl 20 Mg/Ml Vial) 5 mg IV Q6H PRN PRN Reason: hypertension Stop: 02/15/22 18:14 Insulin Aspart (Insulin Aspart Per Unit) 0 units SC ACHS [facility] Stop: 02/15/22 21:08 Last Admin: 01/21/22 12:52 Dose: 5 units Documented by: Isosorbide Mononitrate (Isosorbide Beadle Extended Rel 30 Mg Tabcr) 30 mg PO DAILY [facility] Stop: 02/16/22 08:59 Last Admin: 01/21/22 08:47 Dose: 30 mg Documented by: Metoprolol Succinate (Metoprolol Succ 50mg Ext Rel Tab) 50 mg PO DAILY [facility] Stop: 02/16/22 08:59 Last Admin: 01/21/22 08:47 Dose: 50 mg Documented by: Miscellaneous (Carbohydrates For Hypoglycemia ) 15 - 30 gm PO UD PRN PRN Reason: Hypoglycemia Protocol Stop: 02/15/22 21:08 Ondansetron HCl (Ondansetron Inj 2 Mg/Ml 2 Ml Vial) 4 mg IV Q4H PRN PRN Reason: Nausea And Vomiting Stop: 02/15/22 21:08 (1) Hypertension Hypertension type: unspecified Qualified Code(s): I10 - Essential (primary) hypertension (2) Dementia Dementia behavioral disturbance: without behavioral disturbance Dementia type: unspecified type Qualified Code(s): F03.90 - Unspecified dementia without behavioral disturbance
[2022-01-21] MEDS: ATORVASTATIN 40 MG TAB PO SCH (20:03)
[2022-01-21] MEDS: DONEPEZIL HCL 10 MG TAB PO SCH (20:03)
[2022-01-22] MEDS: ACETAMINOPHEN 500 MG TAB PO SCH ×4 (01:25→23:49)
[2022-01-22] MEDS: ENOXAPARIN INJ 40 MG/0.4 ML SYR SQ SCH (08:09)
[2022-01-22] MEDS: GABAPENTIN 100 MG CAP PO SCH ×2 (08:09→20:01)
[2022-01-22] MEDS: ASPIRIN 81 MG ECTAB PO SCH (08:09)
[2022-01-22] MEDS: CLOPIDOGREL BISULFATE 75 MG TAB PO SCH (08:09)
[2022-01-22] MEDS: CITALOPRAM 20 MG TAB PO SCH (08:09)
[2022-01-22] MEDS: ISOSORBIDE MONO EXTENDED REL 30 MG TABCR PO SCH (08:10)
[2022-01-22] MEDS: METOPROLOL SUCC 50MG EXT REL TAB PO SCH (08:10)
[2022-01-22] MEDS: INSULIN ASPART PER UNIT SC SCH ×4 (08:48→21:09)
--- NOTE | 2022-01-22 16:51 | Hospitalist Progress Note ---
Date of Service January 22, 2022 Assessment & Plan (1) Frequent falls: Plan: Recurrent falls at home including recent event which has damaged right knee. There is underlying right knee osteoarthritis. Joint aspiration of synovial fluid yesterday 01/18 revealed negative gram stain with evidence of inflammation. 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 Continue with rest ice and scheduled Tylenol. NSAIDs cannot be given as he is on aspirin and Plavix. PT/OT ordered. Placement indicated as cannot take care of him at home anymore. Will try local Diclofenac Has been getting PT and OT-recommended rehab He was accepted in [facility] but cannot be transferred due to COVID outbreak at the facility Awaiting placement Constipation Will try milk of magnesia today Advised more ambulation (2) Traumatic arthritis of right knee: Plan: Right knee has improved a lot and minimal pain and restricted movement of the right knee The patient wants to have an Ortho evaluation (3) CAD (coronary artery disease): Plan: Chronic stable, continue medical management per home regimen. (4) Hypertension: Plan: Chronic, controlled. Heart healthy diet. Continue home medications. (5) Paroxysmal atrial fibrillation: Plan: -Has previously followed with Dr. 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 ISS with accuchecks achs, holding metformin (7) Colon cancer: Plan: In remission, per oncology. (8) Prostate carcinoma: Plan: In remission, per oncology. (9) Obesity: (10) Dementia: Plan: Chronic, questionable vascular dementia versus Alzheimer's disease per records. Continues on Plavix and aspirin. Unable to stay at home with current resources. Looking for placement with this hospital stay. (11) DVT prophylaxis: Plan: Lovenox DNR/DNI Disposition-pending placement options Admission and Anticipated Discharge Date Admission Date: January 17, 2022 Subjective 01/20/2022 Patient was seen and examined in medical floor He complains to have constipation without any abdominal distention, nausea and or vomiting His right knee pain is much improved 01/21/2022 The patient was seen and examined in medical floor He has been feeling much better but he still has pain in the right knee Has been waiting to go to rehab for short-term Cannot be transferred due to COVID outbreak at the facility 01/22/2022 The patient was seen and examined in medical floor His right knee pain is a little better but he still has swelling He wants to have an Ortho evaluation for ongoing knee pain Denies any other significant symptoms Review of Systems Review of Systems: All systems reviewed and are unremarkable except as noted below Gastrointestinal: Constipation Musculoskeletal: Mild to moderate right knee pain with swelling Physical Exam Physical Exam: Sitting on a chair without any acute distress Constitutional: well developed, well nourished and + obese; not ill appearing Eyes: PERRL, conjunctivae normal, anicteric sclerae ENMT: external ear and nose normal, oropharynx normal Neck: trachea midline, no thyromegaly Respiratory: no respiratory distress Auscultation: lungs clear to auscultation bilaterally Cardiovascular: Rate/Rhythm: regular rate and regular rhythm; not tachycardic Heart Sounds: normal S1 and normal S2; no murmur Extremities: + edema (Trace edema bilaterally) Gastrointestinal (Abdomen): Inspection/Auscultation: normal bowel sounds; abdomen not distended Percussion/Palpation: abdomen soft; abdomen nontender Musculoskeletal: Knee: + knee abnormal to inspection (Right knee is swollen with minimal amount of joint fluid on clinical examin) and + limited ROM of knee (But no significant pain) Neurologic: normal touch/pain/proprioception and moves all extremities Psychiatric: A+Ox3, euthymic affect Lymphatic: no cervical or axillary lymphadenopathy Results & Data Results & Data ([facility]) Vital Signs (Past 12 Hours) Vital Signs Temp Pulse Resp BP Pulse Ox 01/22/22 15:59 36.6 C 78 16 133/80 96 01/22/22 08:00 36.6 C 60 16 183/87 H 96 Medications Administered Current Inpatient Medications Acetaminophen (Acetaminophen 500 Mg Tab) 1,000 mg PO Q8H [facility] Stop: 02/16/22 16:29 Last Admin: 01/22/22 08:09 Dose: 1,000 mg Documented by: Aspirin (Aspirin 81 Mg Ectab) 81 mg PO QAM [facility] Stop: 02/16/22 08:59 Last Admin: 01/22/22 08:09 Dose: 81 mg Documented by: Atorvastatin Calcium (Atorvastatin 40 Mg Tab) 40 mg PO QPM [facility] Stop: 02/15/22 21:08 Last Admin: 01/21/22 20:03 Dose: 40 mg Documented by: Citalopram Hydrobromide (Citalopram 20 Mg Tab) 20 mg PO QAM [facility] Stop: 02/16/22 08:59 Last Admin: 01/22/22 08:09 Dose: 20 mg Documented by: Clopidogrel Bisulfate (Clopidogrel Bisulfate 75 Mg Tab) 75 mg PO DAILY [facility] Stop: 02/16/22 08:59 Last Admin: 01/22/22 08:09 Dose: 75 mg Documented by: Dextrose (Dextrose 50% 50 Ml Syringe) 25 - 50 ml IV UD PRN; Protocol PRN Reason: Hypoglycemia Protocol Stop: 02/15/22 21:08 Donepezil HCl (Donepezil Hcl 10 Mg Tab) 10 mg PO HS [facility] Stop: 02/15/22 21:08 Last Admin: 01/21/22 20:03 Dose: 10 mg Documented by: Enoxaparin Sodium (Enoxaparin Inj 40 Mg/0.4 Ml Syr) 40 mg SQ QAM [facility] Stop: 02/17/22 08:59 Last Admin: 01/22/22 08:09 Dose: 40 mg Documented by: Gabapentin (Gabapentin 100 Mg Cap) 100 mg PO BID [facility] Stop: 02/15/22 21:08 Last Admin: 01/22/22 08:09 Dose: 100 mg Documented by: Glucagon (Glucagon For Inj 1 Mg Vial) 1 mg SQ UD PRN; Protocol PRN Reason: Hypoglycemia Protocol Stop: 02/15/22 21:08 Glucose (Glucose 10 Tabs/Tube) 4 - 8 tabs PO UD PRN; Protocol PRN Reason: Hypoglycemia Protocol Stop: 02/15/22 21:08 Glucose (Glucose 40% Gel 15 Gm Tube) 15 - 30 gm PO UD PRN; Protocol PRN Reason: Hypoglycemia Protocol Stop: 02/15/22 21:08 Hydralazine HCl (Hydralazine Hcl 20 Mg/Ml Vial) 5 mg IV Q6H PRN PRN Reason: hypertension Stop: 02/15/22 18:14 Insulin Aspart (Insulin Aspart Per Unit) 0 units SC ACHS [facility] Stop: 02/15/22 21:08 Last Admin: 01/22/22 12:53 Dose: 4 units Documented by: Isosorbide Mononitrate (Isosorbide Morrow Extended Rel 30 Mg Tabcr) 30 mg PO DAILY [facility] Stop: 02/16/22 08:59 Last Admin: 01/22/22 08:10 Dose: 30 mg Documented by: Metoprolol Succinate (Metoprolol Succ 50mg Ext Rel Tab) 50 mg PO DAILY [facility] Stop: 02/16/22 08:59 Last Admin: 01/22/22 08:10 Dose: 50 mg Documented by: Miscellaneous (Carbohydrates For Hypoglycemia ) 15 - 30 gm PO UD PRN PRN Reason: Hypoglycemia Protocol Stop: 02/15/22 21:08 Ondansetron HCl (Ondansetron Inj 2 Mg/Ml 2 Ml Vial) 4 mg IV Q4H PRN PRN Reason: Nausea And Vomiting Stop: 02/15/22 21:08 (1) Hypertension Hypertension type: unspecified Qualified Code(s): I10 - Essential (primary) hypertension (2) Dementia Dementia behavioral disturbance: without behavioral disturbance Dementia type: unspecified type Qualified Code(s): F03.90 - Unspecified dementia without behavioral disturbance
--- NOTE | 2022-01-22 17:58 | Orthopedic Consultation ---
Date of Consultation January 22, 2022 Assessment & Plan (1) Traumatic arthritis of right knee: Moderate to severe osteoarthritis of his right knee. X-rays reviewed. Patient with a small to moderate effusion on x-ray. No fractures noted. No obvious signs of infection at this time. Patient would benefit from a total knee replacement however he states that his primary care physician has stated that he should not have that big of a surgery secondary to his heart. He does not appear to have limited range of motion at this time even with his mild effusion. With the minimal amount of pain he is having, I am hard pressed to recommend a steroid injection at this time. Patient currently on Plavix and aspirin regularly and is currently on enoxaparin. NSAIDs have been not recommended due to these medications. Consider use of diclofenac gel. PT/OT protocols weightbearing as tolerated. Patient can switch between heat and ice to the right knee. Patient can follow-up in our office the future if he has worsening pain and possibly undergo steroid injection if needed. Patient on questioning said that he believes he is getting a gel shot or viscosupplementation type shot at the [facility]. These will have to be given in an outpatient setting and at at least 6-month interval between injections. History of Present Illness Reason for Consultation: Right knee pain Attending Physician: Adrian Ordoñez MD History of Present Illness Patient is an 86-year-old male with PMHx of HTN, HLD, RBBB, diastolic dysfunction, paroxysmal atrial fibrillation, history of prostate cancer, history of colon adenocarcinoma status post partial colectomy, adjustment disorder with depressed mood, mixed Alzheimers and vascular dementia, DM type II, diabetic neuropathy who presents to the hospital with acute onset of weakness and falls at home. Patient was admitted on 01/16/2022 and has been overall getting better during his stay. He had continued to complain of some knee pain and was having difficulty ambulating. Patient did fall onto his right knee prior to being admitted. There was an attempted aspiration by the ER physician of which she had gotten 1 mL of fluid which appeared to be arthritic in nature. No gross purulence. No evidence of infection. Patient has been afebrile during his stay. Currently he is sitting in his chair at the bedside. He is awake and alert. His thought processes are sometimes jumbled and he does go back and forth on different subjects. Currently he states his knee is feeling much better today. Does state that he feels somewhat weak and trying to move around and feels that it is difficult for the nurses to help him secondary to his size. He states he is able to bear weight on the knee but he is unable to ambulate long distances secondary to tiring out quickly. We have been asked to see him for his right knee pain. Allergies Allergy/AdvReac Type Severity Reaction Status Date / Time hydrocodone AdvReac Intermediate MAKES PT Verified 01/16/22 14:58 HALLUCINATE meperidine AdvReac Intermediate psych Verified 01/16/22 14:58 complications oxycodone AdvReac Intermediate MAKES PT Verified 01/16/22 14:58 HALLUCINATES Home Medications Medication Instructions Recorded Confirmed Type aspirin 81 mg tablet,delayed 81 mg PO QAM 07/25/19 01/16/22 History release citalopram 20 mg tablet 20 mg PO QAM 07/25/19 01/16/22 History empagliflozin 25 mg tablet 25 mg PO QAM 07/25/19 01/16/22 History (Jardiance) gabapentin 100 mg capsule 100 mg PO BID 07/25/19 01/16/22 History meclizine 25 mg tablet 25 mg PO DAILY PRN 07/25/19 01/16/22 History metformin 500 mg tablet 500 mg PO BIDM 07/25/19 01/16/22 History multivitamin with minerals 1 tab PO QAM 07/25/19 01/16/22 History omega 0-vqb-gsy-fish oil 1,000 mg 1 cap PO QAM 07/25/19 01/16/22 History (120 mg-180 mg) capsule (Fish Oil) atorvastatin 40 mg tablet 40 mg PO QPM 07/23/21 01/16/22 History clopidogrel 75 mg tablet 75 mg PO DAILY 07/23/21 01/16/22 History donepezil 10 mg tablet 10 mg PO HS 07/23/21 01/16/22 History isosorbide mononitrate 30 mg 30 mg PO DAILY 07/23/21 01/16/22 History tablet,extended release 24 hr metoprolol succinate 50 mg 50 mg PO DAILY 07/23/21 01/16/22 History tablet,extended release 24 hr biotin 10 mg tablet 10 mg PO DAILY 01/16/22 01/16/22 History Patient History Medical History CAD (coronary artery disease) Dementia Depression Diabetes mellitus, type 2 Diabetic neuropathy Hearing deficit History of colon cancer 2017--sx/oral chemo History of deep vein thrombosis (DVT) of lower extremity right leg---no blood thinners History of prostate cancer 2013--sx/radiation Hyperlipidemia Hypertension Myocardial Infarction hx of NSTEMI in setting of sepsis July [address] segment elevation myocardial manage medically, occurring in the setting of acute sepsis secondary abdominal abscess following colon resection for colon cancer. Sleep apnea cpap Surgical History H/O colectomy History of bilateral cataract extraction History of colon resection 2017 @ [facility] [place] d/t cancer History of left shoulder replacement History of open reduction and internal fixation (ORIF) procedure right ankle--no hardware History of prostate biopsy malignant History of prostatectomy d/t cancer History of revision of total replacement of right hip joint History of right shoulder replacement History of tooth extraction all teeth History of total left hip replacement History of total right hip replacement S/P cataract surgery S/P hip replacement Family History Denies family history of Heart disease Social History Smoking Status: Never smoker Number of Years Since Quit: 3; Second Hand Exposure: No; Hx Alcohol Use: No Hx Substance Use: No Preferred Language: Israeli Communication Ability: Impaired City Auditor Required: No Beliefs That Will Affect Care: None Current Living Situation: Spouse Feels Safe at Home: Yes Assistive Devices: Cane and Walker Physical Exam Physical Exam: Patient is an 86-year-old white male who is in no acute distress. Pleasant cooperative. He is alert and oriented to person and place. On examination of his right knee, he has noted swelling of the right knee compared to the left. The effusion is not tense. He has no pain on palpation over the knee at this time. He states that at times during range of motion he does have pain on either the medial and/or lateral sides. He is able to take the knee through active range of motion. He can almost fully extend the knee at this time and has flexion to approximately 100 degrees while sitting in his chair. He has no overt crepitus during this time. The knee feels essentially stable. There is no overt erythema or heat to the right knee compared to the left. Again he has minimal pain in the right knee with range of motion at this time. Results & Data ([facility]) Vital Signs (Past 12 Hours) Vital Signs Temp Pulse Resp BP Pulse Ox 01/22/22 15:59 36.6 C 78 16 133/80 96 01/22/22 08:00 36.6 C 60 16 183/87 H 96 Diagnostic Findings Patient:JOAQUIN MARISCAL Admit Date:01/16/22 MR#:[id number] Address1:[address] [place] [address] Acct ID:[id number] Address2: Date:1935 [facility] Zip:[place] [address] Age:86 Location:ED Sex:M Room/Bed: Att Phy: Diagnosis:WEAKNESS, CONFUSION, R KNEE PAIN Janeen Phy:Victroia Saldana DO Service Date:01/16/22 Fam Phy: Interpreting Phy:Brenden DonaldAdmit Phy: Ordering Phy:Franki Paalcios MD cc: ~ XR knee RT 3V HISTORY: 86 years-old Male swelling, ?fall acute pain and swelling of the right knee status post fall COMPARISON: Knee radiographs 01/11/2018 TECHNIQUE: 3 views of the right knee FINDINGS: Small to moderate joint effusion. Chondrocalcinosis. Mild lateral with moderate medial and patellofemoral compartment osteoarthritis. Arterial calcifications. No acute fracture, dislocation or opaque foreign body. IMPRESSION: 1. Small to moderate joint effusion without acute fracture or dislocation. 2. Chondrocalcinosis with tricompartmental osteoarthritis.
[2022-01-22] MEDS: ATORVASTATIN 40 MG TAB PO SCH (20:00)
[2022-01-22] MEDS: DONEPEZIL HCL 10 MG TAB PO SCH (20:00)
[2022-01-23] MEDS: INSULIN ASPART PER UNIT SC SCH ×2 (09:32→13:02)
[2022-01-23] MEDS: ACETAMINOPHEN 500 MG TAB PO SCH (09:40)
[2022-01-23] MEDS: ASPIRIN 81 MG ECTAB PO SCH (09:41)
[2022-01-23] MEDS: CITALOPRAM 20 MG TAB PO SCH (09:41)
[2022-01-23] MEDS: METOPROLOL SUCC 50MG EXT REL TAB PO SCH (09:42)
[2022-01-23] MEDS: GABAPENTIN 100 MG CAP PO SCH (09:42)
[2022-01-23] MEDS: ISOSORBIDE MONO EXTENDED REL 30 MG TABCR PO SCH (09:43)
[2022-01-23] MEDS: CLOPIDOGREL BISULFATE 75 MG TAB PO SCH (09:43)
[2022-01-23] MEDS: ENOXAPARIN INJ 40 MG/0.4 ML SYR SQ SCH (09:44)
[2022-01-23] MEDS ORDERED: COVID-19 VACC, TRIS(PFIZER)/PF 30 MCG/0.3 ML VIAL IM ONE (14:39)
--- NOTE | 2022-01-23 14:39 | Hospitalist Progress Note ---
Date of Service January 23, 2022 Assessment & Plan (1) Frequent falls: Plan: Recurrent falls at home including recent event which has damaged right knee. There is underlying right knee osteoarthritis. Joint aspiration of synovial fluid yesterday 01/18 revealed negative gram stain with evidence of inflammation. 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 Continue with rest ice and scheduled Tylenol. NSAIDs cannot be given as he is on aspirin and Plavix. PT/OT ordered. Placement indicated as cannot take care of him at home anymore. Will try local D[place] Has been getting PT and OT-recommended rehab [facility] be transferred due to COVID outbreak at the facility Has been accepted to [facility] and he will be discharged at around 4 PM today Constipation Will try milk of magnesia today Advised more ambulation (2) Traumatic arthritis of right knee: Plan: Right knee has improved a lot and minimal pain and restricted movement of the right knee The patient wants to have an Ortho evaluation Appreciate Ortho input and recommendation No further intervention at this time-we will have outpatient evaluation for possible injection down the line (3) CAD (coronary artery disease): Plan: Chronic stable, continue medical management per home regimen. (4) Hypertension: Plan: Chronic, controlled. Heart healthy diet. Continue home medications. (5) Paroxysmal atrial fibrillation: Plan: -Has previously followed with Dr. 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 ISS with accuchecks achs, holding metformin (7) Colon cancer: Plan: In remission, per oncology. (8) Prostate carcinoma: Plan: In remission, per oncology. (9) Obesity: (10) Dementia: Plan: Chronic, questionable vascular dementia versus Alzheimer's disease per records. Continues on Plavix and aspirin. Unable to stay at home with current resources. Looking for placement with this hospital stay. (11) DVT prophylaxis: Plan: Lovenox DNR/DNI Disposition-pending placement options Plan: Will be discharged to [facility] this afternoon Admission and Anticipated Discharge Date Admission Date: January 17, 2022 Subjective 01/20/2022 Patient was seen and examined in medical floor He complains to have constipation without any abdominal distention, nausea and or vomiting His right knee pain is much improved 01/21/2022 The patient was seen and examined in medical floor He has been feeling much better but he still has pain in the right knee Has been waiting to go to rehab for short-term Cannot be transferred due to COVID outbreak at the facility 01/22/2022 The patient was seen and examined in medical floor His right knee pain is a little better but he still has swelling He wants to have an Ortho evaluation for ongoing knee pain Denies any other significant symptoms 01/23/2022 The patient was seen and examined in medical floor His right knee pain is much better Was seen by orthopedic surgeon Denies any other symptoms Review of Systems Review of Systems: All systems reviewed and are unremarkable except as noted below Gastrointestinal: Constipation Musculoskeletal: Mild to moderate right knee pain with swelling Physical Exam Physical Exam: Sitting on a chair without any acute distress Constitutional: well developed, well nourished and + obese; not ill appearing Eyes: PERRL, conjunctivae normal, anicteric sclerae ENMT: external ear and nose normal, oropharynx normal Neck: trachea midline, no thyromegaly Respiratory: no respiratory distress Auscultation: lungs clear to auscultation bilaterally Cardiovascular: Rate/Rhythm: regular rate and regular rhythm; not tachycardic Heart Sounds: normal S1 and normal S2; no murmur Extremities: + edema (Trace edema bilaterally) Gastrointestinal (Abdomen): Inspection/Auscultation: normal bowel sounds; abdomen not distended Percussion/Palpation: abdomen soft; abdomen nontender Musculoskeletal: Knee: + knee abnormal to inspection (Right knee is swollen with minimal amount of joint fluid on clinical examin) and + limited ROM of knee (But no significant pain) Neurologic: normal touch/pain/proprioception and moves all extremities Psychiatric: A+Ox3, euthymic affect Lymphatic: no cervical or axillary lymphadenopathy Results & Data Results & Data ([facility]) Vital Signs (Past 12 Hours) Vital Signs Temp Pulse Resp BP Pulse Ox 01/23/22 06:03 36.6 C 70 20 159/90 H 95 Medications Administered Current Inpatient Medications Acetaminophen (Acetaminophen 500 Mg Tab) 1,000 mg PO Q8H LELO Stop: 02/16/22 16:29 Last Admin: 01/23/22 09:40 Dose: 1,000 mg Documented by: Aspirin (Aspirin 81 Mg Ectab) 81 mg PO QAM LELO Stop: 02/16/22 08:59 Last Admin: 01/23/22 09:41 Dose: 81 mg Documented by: Atorvastatin Calcium (Atorvastatin 40 Mg Tab) 40 mg PO QPM LELO Stop: 02/15/22 21:08 Last Admin: 01/22/22 20:00 Dose: 40 mg Documented by: COVID-19 Vaccine mRNA LNP-S (PFR) (PF) (Covid-19 Vacc, Ilan(Pfizer)/Pf 30 Mcg/0.3 Ml Vial) 0.3 ml IM .ONCE ONE Stop: 01/23/22 14:40 Citalopram Hydrobromide (Citalopram 20 Mg Tab) 20 mg PO QAM [facility] Stop: 02/16/22 08:59 Last Admin: 01/23/22 09:41 Dose: 20 mg Documented by: Clopidogrel Bisulfate (Clopidogrel Bisulfate 75 Mg Tab) 75 mg PO DAILY LELO Stop: 02/16/22 08:59 Last Admin: 01/23/22 09:43 Dose: 75 mg Documented by: Dextrose (Dextrose 50% 50 Ml Syringe) 25 - 50 ml IV UD PRN; Protocol PRN Reason: Hypoglycemia Protocol Stop: 02/15/22 21:08 Donepezil HCl (Donepezil Hcl 10 Mg Tab) 10 mg PO HS LELO Stop: 02/15/22 21:08 Last Admin: 01/22/22 20:00 Dose: 10 mg Documented by: Enoxaparin Sodium (Enoxaparin Inj 40 Mg/0.4 Ml Syr) 40 mg SQ QAM LELO Stop: 02/17/22 08:59 Last Admin: 01/23/22 09:44 Dose: 40 mg Documented by: Gabapentin (Gabapentin 100 Mg Cap) 100 mg PO BID LELO Stop: 02/15/22 21:08 Last Admin: 01/23/22 09:42 Dose: 100 mg Documented by: Glucagon (Glucagon For Inj 1 Mg Vial) 1 mg SQ UD PRN; Protocol PRN Reason: Hypoglycemia Protocol Stop: 02/15/22 21:08 Glucose (Glucose 10 Tabs/Tube) 4 - 8 tabs PO UD PRN; Protocol PRN Reason: Hypoglycemia Protocol Stop: 02/15/22 21:08 Glucose (Glucose 40% Gel 15 Gm Tube) 15 - 30 gm PO UD PRN; Protocol PRN Reason: Hypoglycemia Protocol Stop: 02/15/22 21:08 Hydralazine HCl (Hydralazine Hcl 20 Mg/Ml Vial) 5 mg IV Q6H PRN PRN Reason: hypertension Stop: 02/15/22 18:14 Insulin Aspart (Insulin Aspart Per Unit) 0 units SC ACHS [facility] Stop: 02/15/22 21:08 Last Admin: 01/23/22 13:02 Dose: 5 units Documented by: Isosorbide Mononitrate (Isosorbide [place] Extended Rel 30 Mg Tabcr) 30 mg PO DAILY [facility] Stop: 02/16/22 08:59 Last Admin: 01/23/22 09:43 Dose: 30 mg Documented by: Metoprolol Succinate (Metoprolol Succ 50mg Ext Rel Tab) 50 mg PO DAILY [facility] Stop: 02/16/22 08:59 Last Admin: 01/23/22 09:42 Dose: 50 mg Documented by: Miscellaneous (Carbohydrates For Hypoglycemia ) 15 - 30 gm PO UD PRN PRN Reason: Hypoglycemia Protocol Stop: 02/15/22 21:08 Ondansetron HCl (Ondansetron Inj 2 Mg/Ml 2 Ml Vial) 4 mg IV Q4H PRN PRN Reason: Nausea And Vomiting Stop: 02/15/22 21:08 (1) Hypertension Hypertension type: unspecified Qualified Code(s): I10 - Essential (primary) hypertension (2) Dementia Dementia behavioral disturbance: without behavioral disturbance Dementia type: unspecified type Qualified Code(s): F03.90 - Unspecified dementia without behavioral disturbance
--- NOTE | 2022-01-24 07:42 | Discharge Summary ---
Date of Service January 23, 2022 Admission HPI Per Admitting Provider This is an 86-year-old male with PMHx of HTN, HLD, RBBB, diastolic dysfunction, paroxysmal atrial fibrillation, history of prostate cancer, history of colon adenocarcinoma status post partial colectomy, adjustment disorder with depressed mood, mixed Alzheimers and vascular dementia, DM type II, diabetic neuropathy who presents to the hospital with acute onset of weakness and falls at home yesterday. His is present with him at baseline and states she is unable to care for him at home. He has previously been on hospice for his heart, however at this time she would like to revoke hospice to be able to participate in rehab and placement into a facility of her as she feels that she cannot care for him alone at home. Admission Exam Per Admitting Provider Physical exam notable for elderly man alert and oriented to person only, confused, follows simple commands. Right knee swelling and tenderness with limited range of movement due to tenderness. Principal Diagnosis Frequent falls, ambulatory dysfunction, traumatic right knee arthritis, paroxysmal atrial fibrillation, hypertension, type 2 diabetes Discharge Exam Sitting on a chair without any acute distress Constitutional well developed, well nourished and + obese; not ill appearing Eyes PERRL, conjunctivae normal, anicteric sclerae ENMT external ear and nose normal, oropharynx normal Neck trachea midline, no thyromegaly Respiratory no respiratory distress Auscultation: lungs clear to auscultation bilaterally Cardiovascular Rate/Rhythm: regular rate and regular rhythm; not tachycardic Heart Sounds: normal S1 and normal S2; no murmur Extremities: + edema (Trace edema bilaterally) Gastrointestinal (Abdomen) Inspection/Auscultation: normal bowel sounds; abdomen not distended Percussion/Palpation: abdomen soft; abdomen nontender Musculoskeletal Knee: + knee abnormal to inspection (Right knee is swollen with minimal amount of joint fluid on clinical examin) and + limited ROM of knee (But no significant pain) Neurologic normal touch/pain/proprioception and moves all extremities Psychiatric A+Ox3, euthymic affect Lymphatic no cervical or axillary lymphadenopathy Discharge Data Allergies Allergy/AdvReac Type Severity Reaction Status Date / Time hydrocodone AdvReac Intermediate MAKES PT Verified 01/16/22 14:58 HALLUCINATE meperidine AdvReac Intermediate psych Verified 01/16/22 14:58 complications oxycodone AdvReac Intermediate MAKES PT Verified 01/16/22 14:58 HALLUCINATES Consultations 01/16/22 16:39 ED Decision to Admit Stat 01/22/22 15:51 Consult Orthopedic Surgery Routine Ordered Studies 01/16/22 11:54 CT head/brain wo con Stat 01/16/22 12:54 US point of care ultrasound Urgent 01/16/22 14:46 CT angio LE RT w inc wo if don Stat Hospital Course (1) Frequent falls: Recurrent falls at home including recent event which has damaged right knee. There is underlying right knee osteoarthritis. Joint aspiration of synovial fluid yesterday 01/18 revealed negative gram stain with evidence of inflammation. 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 Continue with rest ice and scheduled Tylenol. NSAIDs cannot be given as he is on aspirin and Plavix. PT/OT ordered. Placement indicated as cannot take care of him at home anymore. Will try local [facility] Has been getting PT and OT-recommended rehab He was accepted in [facility] but cannot be transferred due to COVID outbreak at the facility Has been accepted [facility] and he will be discharged at around 4 PM today Constipation Will try milk of magnesia today Advised more ambulation (2) Traumatic arthritis of right knee: Right knee has improved a lot and minimal pain and restricted movement of the right knee The patient wants to have an Ortho evaluation Appreciate Ortho input and recommendation No further intervention at this time-we will have outpatient evaluation for possible injection down the line (3) CAD (coronary artery disease): Chronic stable, continue medical management per home regimen. (4) Hypertension: Chronic, controlled. Heart healthy diet. Continue home medications. (5) Paroxysmal atrial fibrillation: -Has previously followed with Dr. 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 ISS with accuchecks achs, holding metformin (7) Colon cancer: In remission, per oncology. (8) Prostate carcinoma: In remission, per oncology. (9) Obesity: (10) Dementia: Chronic, questionable vascular dementia versus Alzheimer's disease per records. Continues on Plavix and aspirin. Unable to stay at home with current resources. Looking for placement with this hospital stay. (11) DVT prophylaxis: Lovenox DNR/DNI Disposition-pending placement options Will be discharged to [facility] this afternoon Total Time Total Time Spent Total Time Spent (In Minutes): 35 minutes Discharge Plan Discharge Items Patient Disposition: Transfer Custodial Fac Reason For Visit: AMBULATORY DYSFUNCTION Discharge Diagnosis: Frequent falls, ambulatory dysfunction, traumatic right knee arthritis, paroxysmal atrial fibrillation, hypertension, type 2 diabetes Condition on Discharge: Good Activity: Resume your previous activity Non-emergency contact: Primary Care Provider Call non-emergency contact if: you have any medication questions and your symptoms worsen Follow-up/Referrals: Victoria Saldana, [Primary Care Provider] - (Please make an appointment within 7 days following discharge from the facility) Diet: Heart Healthy Addtl Attending Provider Instructions: Please take precautions to avoid fall Try Tylenol for control of pain and avoid ibuprofen, Advil and other NSAID's Please keep appointments with your healthcare providers Pending Studies at Discharge: No Stand-Alone Forms: My [facility] Skilled Items Patient informed of condition?: Yes DNR: Yes Discharge Level of Care: Skilled Communicable Disease: No Discharge Prognosis: Stable Lines: None Urinary Catheter: No Medications and DC Order Prescriptions: New diclofenac sodium 1 % gel 4 g topical TID Qty: 100 RF: 0 Continued metformin 500 mg Tablet 500 mg PO BIDM RF: 0 aspirin 81 mg Tablet,Delayed Release (Dr/Ec) 81 mg PO QAM RF: 0 citalopram 20 mg Tablet 20 mg PO QAM RF: 0 meclizine 25 mg Tablet 25 mg PO DAILY PRN (Reason: Dizziness) RF: 0 gabapentin 100 mg Capsule 100 mg PO BID RF: 0 multivitamin with minerals Tablet 1 tab PO QAM RF: 0 omega 1-nly-nrz-fish oil [Fish Oil] 1,000 mg (120 mg-180 mg) Capsule 1 cap PO QAM RF: 0 Jardiance 25 mg Tablet 25 mg PO QAM RF: 0 metoprolol succinate 50 mg tablet extended release 24 hr 50 mg PO DAILY RF: 0 donepezil 10 mg tablet 10 mg PO HS RF: 0 atorvastatin 40 mg tablet 40 mg PO QPM RF: 0 isosorbide mononitrate 30 mg tablet extended release 24 hr 30 mg PO DAILY RF: 0 clopidogrel 75 mg tablet 75 mg PO DAILY RF: 0 biotin 10 mg Tablet 10 mg PO DAILY RF: 0 Discharge Orders: Discharge Order (Routine); Ordered 01/23/22 Ordered By: Adrian Ordoñez Admission Data Admit Date/Time: 01/17/22 15:47 Attending Provider: Adrian Ordoñez Admit Provider: Belinda Orozco I. Primary Care Provider: Victoria Saldana Other Providers: Belinda Orozco I. ; [facility] ; Sonali Kaiser ; [facility] Barlow [facility] [place] ; Casey Flynn ; Errol Hill ; Nino Viramontes ; Eliana Daniel ; Guzman Deleon ; Keyana Taylor ; Theo Lane ; Sukhdev Costello ; Drew Bernard ; Julio Crowe ; Berto Mars ; Jair Hill ; Anil Ware ; Lars Dalton ; Keyana Estrada ; Prabhu Pham ; Zeenat Campos ; Jayy Singh ; Skyla Andujar ; Brenden Robb Other Interventions: Discharge Summary Assessment (RN) Last Done: 01/23/22 15:47
== END 2022-01-23 16:03 | DRG 554 ==
LOC: ED 11:37 → 3N 11:37 → SUATTDRO 17:01 → 3N 21:02 → SUATTDRO 01-17 15:47

== ENCOUNTER 2022-04-25 19:41 | Inpatient (IN) ==
[2022-04-25] MEDS ORDERED: SODIUM CHLORIDE 0.9% 1000ML 1,000 ML IV SCH (20:30)
--- NOTE | 2022-04-25 21:05 | CT Scan Report ---
CT OF THE HEAD WITHOUT CONTRAST CLINICAL HISTORY: ams COMPARISON STUDY: No previous studies for comparison. CT DOSE: 614.27 mGy.cm TECHNIQUE: Helical axial images of the head were obtained without IV contrast. Automated exposure con trol was utilized for the study. A dose lowering technique was utilized adhering to the principles o f ALARA. FINDINGS: No acute intracranial hemorrhage, midline shift or mass effect is present. The ventricular system is unremarkable. The basal cisterns are patent. No extra-axial collections are present. There are no findings to suggest acute dural sinus thrombosis or acute territorial infarct. No significant calvarial abnormalities are present. Visualized portions of the sinuses and mastoid air cells are shaun ar. IMPRESSION: No acute intracranial findings. ACT 112: Negative or not required by law. Electronically signed by: David Rivera M.D. 04/25/2022 9:04 PM
[2022-04-25 21:18] LABS: Troponin I High Sensitivity 11.7 pg/ml (0-20)
[2022-04-25 21:19] LABS: Albumin Globulin Ratio 2.1 (0.9-2); Albumin Level 4.2 gm/dl (3.4-5.0); BUN Creatinine Ratio 18.5 (10-20); Bilirubin,Total 0.6 mg/dl (0.2-1.0); Calcium 8.7 mg/dl (8.5-10.1); Creatinine Clr Calc Pharmacy 61.5 ml/min; Est GFR (African American) 71.1 ml/min; Est GFR (Non-African American) 61.4 ml/min; Total Protein 6.2 gm/dl (6.0-8.3)
--- NOTE | 2022-04-25 21:20 | Emergency Department Note ---
History of Present Illness General Chief complaint: Confusion Stated complaint: confusion Time Seen by Provider: 04/25/22 20:12 Source: patient and family Mode of arrival: ambulatory Limitations: altered mental status History of Present Illness Provider complaint: Increased confusion, cough Onset (ago): day(s) 1 This is an 87-year-old male presents with at bedside due to concern for co ugh and increasing confusion. states she first noticed that he had a slight cough yesterday evening. She states today he slept and which is unusual for him and when he woke he did not want to eat or drink. She states she then noticed into this evening that he was saying things that did not make sense. She states he has not had any fevers and chills. They deny any known sick contacts. He denies any current chest pain, headaches, or abdominal pain. Home Medications Medication Instructions Recorded Confirmed Type aspirin 81 mg tablet,delayed 81 mg PO QAM 07/25/19 04/26/22 History release citalopram 20 mg tablet 20 mg PO QAM 07/25/19 04/26/22 History empagliflozin 25 mg tablet 25 mg PO QAM 07/25/19 04/26/22 History (Jardiance) gabapentin 100 mg capsule 100 mg PO BID 07/25/19 04/26/22 History meclizine 25 mg tablet 25 mg PO DAILY PRN Dizziness 07/25/19 04/26/22 History metformin 500 mg tablet 500 mg PO BIDM 07/25/19 04/26/22 History multivitamin with minerals 1 tab PO QA 07/25/19 04/26/22 History omega [id number]-fish oil 1,000 mg 1 cap PO M 07/25/19 04/26/22 History (120 mg-180 mg) capsule (Fish Oil) atorvastatin 40 mg tablet 40 mg PO QPM 07/23/21 04/26/22 History clopidogrel 75 mg tablet 75 mg PO DAILY 07/23/21 04/26/22 History donepezil 10 mg tablet 10 mg PO HS 07/23/21 04/26/22 History isosorbide mononitrate 30 mg 30 mg PO DAILY 07/23/21 04/26/22 History tablet,extended release 24 hr metoprolol succinate 50 mg 50 mg PO DAILY 07/23/21 04/26/22 History tablet,extended release 24 hr loperamide 2 mg tablet 2 mg PO DAILY 04/26/22 04/26/22 History melatonin 1 mg tablet 3 mg PO HS 04/26/22 04/26/22 History Allergies Allergy/AdvReac Type Severity Reaction Status Date / Time hydrocodone AdvReac Intermediate MAKES PT Verified 04/26/22 01:38 HALLUCINATE meperidine AdvReac Intermediate psych Verified 04/26/22 01:38 complications oxycodone AdvReac Intermediate MAKES PT Verified 04/26/22 01:38 HALLUCINATES Past Med/Surg History Medical History CAD (coronary artery disease) Dementia Depression Diabetes mellitus, type 2 Diabetic neuropathy Hearing deficit History of colon cancer 2017--sx/oral chemo History of deep vein thrombosis (DVT) of lower extremity right leg---no blood thinners History of prostate cancer 2013--sx/radiation Hyperlipidemia Hypertension Myocardial Infarction hx of NSTEMI in setting of sepsis July [address] segment elevation myocardial manage medically, occurring in the setting of acute sepsis secondary abdominal abscess following colon resection for colon cancer. Sleep apnea cpap Surgical History H/O colectomy History of bilateral cataract extraction History [place] [facility] [place] History of left shoulder replacement History of open reduction and internal fixation (ORIF) procedure right ankle--no hardware History of prostate biopsy malignant History of prostatectomy d/t cancer History of revision of total replacement of right hip joint History of right shoulder replacement History of tooth extraction all teeth History of total left hip replacement History of total right hip replacement S/P cataract surgery S/P hip replacement Family History Denies family history of Heart disease Social History Smoking Status: Never smoker Number of Years Since Quit: 3; Second Hand Exposure: No; Do You Dip or Chew Tobacco: No; Tobacco Cessation Education Requested by Patient: No Hx Alcohol Use: No Hx Substance Use: No Preferred Language: Irish Communication Ability: Effective [employer] Vice President Required: No Beliefs That Will Affect Care: None Current Living Situation: Spouse Other Information That Helps Us Care for You: No Feels Safe at Home: Yes Safety Concerns: Feels Safe At This Time Assistive Devices: Cane and Walker Review of Systems A total of 10 systems reviewed and were otherwise negative All systems reviewed & are unremarkable except as noted in HPI & below Physical Exam Vital Signs Vital Signs - 24 hr 04/25/22 19:32 04/25/22 19:43 Temperature 37.6 C H Temperature Source Oral Pulse Rate 86 Respiratory Rate 20 Respiratory Effort / Characteristics Non-Labored Respiratory Depth Normal Blood Pressure 135/80 Blood Pressure Mean 98 Pulse Oximetry 94 94 Oxygen Delivery Method Room Air Room Air Sepsis Recent Fever Within 48 Hours Yes Sepsis New/Unexplained Change in Mental Status Yes Sepsis Action Taken by Nursing No Action Required GENERAL: alert, well appearing, well nourished, no distress, non-toxic EYE EXAM: normal conjunctiva, PERRL and EOM's grossly intact OROPHARYNX: no exudate, no erythema, lips, buccal mucosa, and tongue normal and mucous membranes are moist NECK: supple, no nuchal rigidity, no adenopathy, non-tender LUNGS: Clear to auscultation. Normal chest wall mechanics, no w/r/r HEART: no murmurs, S1 normal and S2 normal ABDOMEN: abdomen soft, non-tender, normo-active bowel sounds, no masses, no rebound or guarding. BACK: Back is symmetrical on inspection and there is no deformity, no midline tenderness, no CVA tenderness. SKIN: no rashes and no bruising UPPER EXTREMITIES: upper extremities are grossly normal. FROM, nml pulses b/l. LOWER EXTREMITIES: No pitting edema. FROM, nml pulses b/l. NEURO EXAM: Normal sensorium, cranial nerves II-XII grossly intact, normal speech, no gross weakness of arms, no gross weakness of legs. Gross sensation intact. Course Administered Medications Aspirin (Aspirin 81 Mg Ectab) 81 mg PO QAM [facility] Stop: 05/26/22 08:59 Last Admin: 04/28/22 09:14 Dose: 81 mg Documented By: [id number] Admin: 04/27/22 09:50 Dose: 81 mg Documented By: Admin: 04/26/22 10:04 Dose: 81 mg Documented By: RRR Atorvastatin Calcium (Atorvastatin 40 Mg Tab) 40 mg PO QPM [facility] Stop: 05/26/22 20:59 Last Admin: 04/27/22 22:14 Dose: 40 mg Documented By: Admin: 04/26/22 23:17 Dose: 40 mg Documented By: KRYSTLE Citalopram Hydrobromide (Citalopram 20 Mg Tab) 20 mg PO QAM [facility] Stop: 05/26/22 08:59 Last Admin: 04/28/22 09:13 Dose: 20 mg Documented By: [id number] Admin: 04/27/22 09:50 Dose: 20 mg Documented By: Admin: 04/26/22 10:04 Dose: 20 mg Documented By: RRR Clopidogrel Bisulfate (Clopidogrel Bisulfate 75 Mg Tab) 75 mg PO DAILY [facility] Stop: 05/26/22 08:59 Last Admin: 04/28/22 09:13 Dose: 75 mg Documented By: [id number] Admin: 04/27/22 09:50 Dose: 75 mg Documented By: Admin: 04/26/22 10:04 Dose: 75 mg Documented By: KANDACE Donepezil HCl (Donepezil Hcl 10 Mg Tab) 10 mg PO HS LELO Stop: 05/26/22 20:59 Last Admin: 04/27/22 22:14 Dose: 10 mg Documented By: [email or web address] Admin: 04/26/22 23:17 Dose: 10 mg Documented By: KRYSTLE Doxycycline Hyclate (Doxycycline Hyclate 100 Mg Cap) 100 mg PO BID [facility] Stop: 05/03/22 20:59 Last Admin: 04/28/22 09:12 Dose: 100 mg Documented By: [id number] Admin: 04/27/22 22:15 Dose: 100 mg Documented By: Admin: 04/27/22 09:50 Dose: 100 mg Documented By: Admin: 04/26/22 23:17 Dose: 100 mg Documented By: KRYSTLE Enoxaparin Sodium (Enoxaparin Inj 40 Mg/0.4 Ml Syr) 40 mg SQ QAM L[facility] Stop: 05/27/22 08:59 Last Admin: 04/28/22 09:14 Dose: 40 mg Documented By: [id number] Admin: 04/27/22 12:36 Dose: 40 mg Documented By: KANDACE Gabapentin (Gabapentin 100 Mg Cap) 100 mg PO BID L[facility] Stop: 05/26/22 08:59 Last Admin: 04/28/22 09:12 Dose: 100 mg Documented By: [id number] Admin: 04/27/22 22:14 Dose: 100 mg Documented By: Admin: 04/27/22 09:50 Dose: 100 mg Documented By: Admin: 04/26/22 23:17 Dose: 100 mg Documented By: Admin: 04/26/22 10:04 Dose: 100 mg Documented By: KANDACE Insulin Aspart (Insulin Aspart Per Unit) 0 units SC ACHS [facility] Stop: 05/26/22 04:53 Last Admin: 04/28/22 09:16 Dose: 4 units Documented By: [id number] Co-signed By: ZELDA Admin: 04/27/22 22:15 Dose: Not Given Documented By: Admin: 04/27/22 18:14 Dose: 3 units Documented By: KANDACE Co-signed By: [id number] Admin: 04/27/22 12:35 Dose: 3 units Documented By: KANDACE Co-signed By: [id number] Admin: 04/27/22 10:49 Dose: Not Given Documented By: Admin: 04/26/22 23:27 Dose: 3 units Documented By: KRYSTLE Co-signed By: [email or web address] Admin: 04/26/22 18:19 Dose: 4 units Documented By: KANDACE Co-signed By: [id number] Admin: 04/26/22 13:08 Dose: 1 units Documented By: KANDACE Co-signed By: [id number] Admin: 04/26/22 05:13 Dose: 2 units Documented By: GENOVEVA Co-signed By: YUE Insulin Glargine (Lantus Per Unit Charge) 5 units SQ DAILY [facility] Stop: 05/26/22 04:53 Last Admin: 04/28/22 09:17 Dose: 5 units Documented By: [id number] Co-signed By: ZELDA Admin: 04/27/22 11:23 Dose: 5 units Documented By: KANDACE Co-signed By: ZELDA Admin: 04/26/22 05:13 Dose: 5 units Documented By: DM Co-signed By: YUE Isosorbide Mononitrate (Isosorbide [place] Extended Rel 30 Mg Tabcr) 30 mg PO DAILY LELO Stop: 05/26/22 08:59 Last Admin: 04/28/22 09:13 Dose: 30 mg Documented By: [id number] Admin: 04/27/22 09:50 Dose: 30 mg Documented By: Admin: 04/26/22 10:04 Dose: 30 mg Documented By: KANDACE Melatonin (Melatonin 3 Mg Tab) 3 mg PO HS LELO Stop: 05/26/22 20:59 Last Admin: 04/27/22 22:14 Dose: 3 mg Documented By: Admin: 04/26/22 23:16 Dose: 3 mg Documented By: KRYSTLE Metoprolol Succinate (Metoprolol Succ 50mg Ext Rel Tab) 50 mg PO DAILY LELO Stop: 05/26/22 08:59 Last Admin: 04/28/22 09:13 Dose: 50 mg Documented By: [id number] Admin: 04/27/22 09:50 Dose: 50 mg Documented By: Admin: 04/26/22 10:04 Dose: 50 mg Documented By: KANDACE Multivitamins/Minerals (Cerovite Adv Formula Tab) 1 tab PO QAM LELO Stop: 05/26/22 08:59 Last Admin: 04/28/22 09:14 Dose: 1 tab Documented By: [id number] Admin: 04/27/22 09:50 Dose: 1 tab Documented By: Admin: 04/26/22 10:04 Dose: 1 tab Documented By: KANDACE Discontinued Medications Acetaminophen (Acetaminophen 325 Mg Tab) 650 mg PO NOW STA Stop: 04/26/22 00:35 Last Admin: 04/26/22 01:35 Dose: Not Given Documented By: DANIELLE Albuterol (Albut/Ipratrop 3mg/0.5mg Neb 3 Ml Vial) 3 ml NEB NOW STA; Protocol Stop: 04/26/22 02:46 Last Admin: 04/26/22 03:03 Dose: 3 ml Documented By: SONIA Furosemide (Furosemide Inj 20 Mg/2 Ml Vial) 20 mg IV ONE ONE Stop: 04/26/22 00:37 Last Admin: 04/26/22 01:30 Dose: 20 mg Documented By: DANIELLE Sodium Chloride (Nss 1000ml) 1,000 mls @ 250 mls/hr IV .Q4H LELO Stop: 05/25/22 20:29 Last Infusion: 04/26/22 00:50 Dose: 0 mls/hr Documented By: Admin: 04/25/22 20:27 Dose: 250 mls/hr Documented By: DANIELLE Albumin Human (Albumin 25% 100 Ml) 25 gm in 100 mls @ 50 mls/hr IV ONE ONE Stop: 04/26/22 02:35 Last Infusion: 04/26/22 03:43 Dose: 0 mls/hr Documented By: Admin: 04/26/22 01:30 Dose: 50 mls/hr Documented By: DANIELLE Doxycycline Hyclate 100 mg/ (Dextrose) 110 mls @ 50 mls/hr IV NOW STA Stop: 04/26/22 03:37 Last Infusion: 04/26/22 03:51 Dose: 0 mls/hr Documented By: Admin: 04/26/22 01:41 Dose: 50 mls/hr Documented By: DANIELLE Ipratropium [place] (Ipratropium [place] Neb Soln 0.02% 2.5 Ml Vial) 0.5 mg INH QIDR [facility] Stop: 05/26/22 06:59 Last Admin: 04/26/22 19:29 Dose: 0.5 mg Documented By: Admin: 04/26/22 14:53 Dose: Not Given Documented By: Admin: 04/26/22 11:01 Dose: 0.5 mg Documented By: Admin: 04/26/22 07:19 Dose: 0.5 mg Documented By: ADAMS Levalbuterol HCl (Levalbuterol 1.25mg/0.5ml Neb) 1.25 mg INH QIDR LELO Stop: 05/26/22 06:59 Last Admin: 04/26/22 19:29 Dose: 1.25 mg Documented By: Admin: 04/26/22 14:53 Dose: Not Given Documented By: Admin: 04/26/22 11:01 Dose: 1.25 mg Documented By: Admin: 04/26/22 07:19 Dose: 1.25 mg Documented By: ADAMS Medical Decision Making Differential Diagnosis Differential diagnoses includes but is not limited to toxic, metabolic, infectious, traumatic, cardiac, neurologic, hematologic, psychiatric and inflammatory etiologies. Medical Records Attestation: I reviewed the patient's medical records. Home Medications Current Medication List: was personally reviewed by me Laboratory Data Attestation: I reviewed the patient's lab results. Result diagrams: 04/27/22 07:16 04/28/22 07:35 Lab Results 04/25/22 04/25/22 04/25/22 Range/Units 19:54 19:54 19:54 WBC Cancelled RBC Cancelled Hgb Cancelled Hct Cancelled MCV Cancelled MCH Cancelled MCHC Cancelled RDW Std Deviation Cancelled RDW Coeff of Mini Cancelled Plt Count Cancelled MPV Cancelled Immature Gran % (Auto) Cancelled Neut % (Auto) Cancelled Lymph % (Auto) Cancelled [place] % (Auto) Cancelled Eos % (Auto) Cancelled Baso % (Auto) Cancelled Neut # (Auto) Cancelled Lymph # (Auto) Cancelled [place] # (Auto) Cancelled Eos # (Auto) Cancelled Baso # (Auto) Cancelled Immature Gran # (Auto) Cancelled Absolute Nucleated RBC Cancelled Nucleated RBC % (auto) Cancelled Neutrophils % (Manual) Cancelled Band Neutrophils % Cancelled Lymphocytes % (Manual) Cancelled Prolymphocyte % Cancelled Reactive Lymphs % (Man) Cancelled Monocytes % (Manual) Cancelled Eosinophils % (Manual) Cancelled Basophils % (Manual) Cancelled Metamyelocytes % (Man) Cancelled Myelocytes % (Man) Cancelled Promyelocytes % (Man) Cancelled Blast Cells % (Manual) Cancelled Plasma Cell % (Manual) Cancelled Other Cells % Cancelled Nucleated RBC % Cancelled Neutrophils # (Manual) Cancelled Band Neutrophils # Cancelled Total Absolute Neuts Cancelled Lymphocytes # (Manual) Cancelled Prolymphocyte # Cancelled Reactive Lymphs # Cancelled Total Abs Lymphocytes Cancelled Monocytes # (Manual) Cancelled Eosinophils # (Manual) Cancelled Basophils # (Manual) Cancelled Metamyelocytes # (Man) Cancelled Myelocytes # (Manual) Cancelled Promyelocytes # (Man) Cancelled Blast Cells # (Man) Cancelled Plasma Cell # (Manual) Cancelled Other Cells # Cancelled Nucleated RBCs # (Man) Cancelled Hypersegmented Neuts Cancelled Hyposegmented Neuts Cancelled Hypogranular Neuts Cancelled Large Granular Lymphs Cancelled # Lrg Granular Lymphs Cancelled Hairy Cells Cancelled Smudge Cells Cancelled Toxic Granulation Cancelled Toxic Vacuolation Cancelled Dohle Bodies Cancelled Nazanin Rods Cancelled Platelet Estimate Cancelled Hypogranular Platelets Cancelled Clumped Platelets Cancelled Giant Platelets Cancelled Platelet Satelliting Cancelled RBC Morphology Cancelled Polychromasia Cancelled Hypochromasia Cancelled Poikilocytosis Cancelled Basophilic Stippling Cancelled Anisocytosis Cancelled Microcytosis Cancelled Macrocytosis Cancelled Spherocytes Cancelled Pappenheimer Bodies Cancelled Sickle Cells Cancelled Target Cells Cancelled Tear Drop Cells Cancelled Ovalocytes Cancelled Stomatocytes Cancelled Bills-[place] Bodies Cancelled Echinocytes Cancelled Acanthocytes (Spur) Cancelled Rouleaux Cancelled RBC Agglutinates Cancelled Schistocytes Cancelled Sezary Cell Cancelled ABG pH (7.35-7.45) ABG pCO2 (35-46) mmHg ABG pO2 (80-95) mmHg ABG HCO3 (19-24) mmol/L ABG O2 Saturation (90-95) % ABG Base Excess (-9-1.8) mEq/L Harish Test (Pos) Oxygen Given Sodium 141 (136-145) mmol/L Potassium 4.0 (3.5-5.1) mmol/L Chloride 108 H (98-107) mmol/L Carbon Dioxide 22 (21-32) mmol/L Anion Gap 11 (3-11) BUN 20 (6-23) mg/dl Creatinine 1.08 (0.6-1.4) mg/dl Est Cr Clr Drug Dosing 61.5 ml/min Est GFR ( Amer) 71.1 ml/min Est GFR (Non-Af Amer) 61.4 ml/min BUN/Creatinine Ratio 18.5 (10-20) Glucose 235 H (70-99(Fasting)) mg/dl Lactate (0.4-2.0) mmol/L Calcium 8.7 (8.5-10.1) mg/dl Magnesium 2.0 (1.7-2.4) mg/dl Total Bilirubin 0.6 (0.2-1.0) mg/dl AST 19 (13-39) U/L ALT 18 (7-52) U/L Alkaline Phosphatase 75 (34-104) U/L Troponin I High Sens 11.7 (0-20) pg/ml B-Natriuretic Peptide (0-100) pg/ml Total Protein 6.2 (6.0-8.3) gm/dl Albumin 4.2 (3.4-5.0) gm/dl Globulin 2.0 L (2.5-4.0) gm/dl Albumin/Globulin Ratio 2.1 H (0.9-2) Lipase 29 (11-82) U/L Procalcitonin (0-0.5) ng/ml TSH 1.618 (0.300-4.500) uIu/ml Urine Color Urine Appearance (Clear) Urine pH (4.5-7.5) Ur Specific [place] (1.000-1.030) Urine Protein (Negative) Urine Glucose (UA) (Negative) Urine Ketones (Negative) Urine Blood (Negative) Urine Nitrite (Negative) Urine Bilirubin (Negative) Urine Urobilinogen (Negative) Ur Leukocyte Esterase (Negative) SARS-CoV-2 (PCR) (Negative) Influenza Type A (PCR) (Neg) Influenza Type B (PCR) (Neg) RSV (RT-PCR) (Neg) Blood Parasites ID Cancelled 04/25/22 04/25/22 04/25/22 Range/Units 19:54 21:15 21:18 WBC 8.13 RBC 5.18 Hgb 15.1 Hct 45.6 MCV 88.0 MCH 29.2 MCHC 33.1 RDW Std Deviation 47.8 H RDW Coeff of Mini 14.9 H Plt Count 165 MPV 11.3 Immature Gran % (Auto) 0.7 Neut % (Auto) 69.2 Lymph % (Auto) 18.3 [place] % (Auto) 10.8 Eos % (Auto) 0.5 Baso % (Auto) 0.5 Neut # (Auto) 5.62 Lymph # (Auto) 1.49 [place] # (Auto) 0.88 H Eos # (Auto) 0.04 Baso # (Auto) 0.04 Immature Gran # (Auto) 0.06 H Absolute Nucleated RBC Nucleated RBC % (auto) Neutrophils % (Manual) Band Neutrophils % Lymphocytes % (Manual) Prolymphocyte % Reactive Lymphs % (Man) Monocytes % (Manual) Eosinophils % (Manual) Basophils % (Manual) Metamyelocytes % (Man) Myelocytes % (Man) Promyelocytes % (Man) Blast Cells % (Manual) Plasma Cell % (Manual) Other Cells % Nucleated RBC % Neutrophils # (Manual) Band Neutrophils # Total Absolute Neuts Lymphocytes # (Manual) Prolymphocyte # Reactive Lymphs # Total Abs Lymphocytes Monocytes # (Manual) Eosinophils # (Manual) Basophils # (Manual) Metamyelocytes # (Man) Myelocytes # (Manual) Promyelocytes # (Man) Blast Cells # (Man) Plasma Cell # (Manual) Other Cells # Nucleated RBCs # (Man) Hypersegmented Neuts Hyposegmented Neuts Hypogranular Neuts Large Granular Lymphs # Lrg Granular Lymphs Hairy Cells Smudge Cells Toxic Granulation Toxic Vacuolation Dohle Bodies Nazanin Rods Platelet Estimate Hypogranular Platelets Clumped Platelets Giant Platelets Platelet Satelliting RBC Morphology Polychromasia Hypochromasia Poikilocytosis Basophilic Stippling Anisocytosis Microcytosis Macrocytosis Spherocytes Pappenheimer Bodies Sickle Cells Target Cells Tear Drop Cells Ovalocytes Stomatocytes Bills-[place] Bodies Echinocytes Acanthocytes (Spur) Rouleaux RBC Agglutinates Schistocytes Sezary Cell ABG pH (7.35-7.45) ABG pCO2 (35-46) mmHg ABG pO2 (80-95) mmHg ABG HCO3 (19-24) mmol/L ABG O2 Saturation (90-95) % ABG Base Excess (-9-1.8) mEq/L Harish Test (Pos) Oxygen Given Sodium (136-145) mmol/L Potassium (3.5-5.1) mmol/L Chloride (98-107) mmol/L Carbon Dioxide (21-32) mmol/L Anion Gap (3-11) BUN (6-23) mg/dl Creatinine (0.6-1.4) mg/dl Est Cr Clr Drug Dosing ml/min Est GFR ( Amer) ml/min Est GFR (Non-Af Amer) ml/min BUN/Creatinine Ratio (10-20) Glucose (70-99(Fasting)) mg/dl Lactate (0.4-2.0) mmol/L Calcium (8.5-10.1) mg/dl Magnesium (1.7-2.4) mg/dl Total Bilirubin (0.2-1.0) mg/dl AST (13-39) U/L ALT (7-52) U/L Alkaline Phosphatase (34-104) U/L Troponin I High Sens (0-20) pg/ml B-Natriuretic Peptide (0-100) pg/ml Total Protein (6.0-8.3) gm/dl Albumin (3.4-5.0) gm/dl Globulin (2.5-4.0) gm/dl Albumin/Globulin Ratio (0.9-2) Lipase (11-82) U/L Procalcitonin (0-0.5) ng/ml TSH (0.300-4.500) uIu/ml Urine Color Yellow Urine Appearance Clear (Clear) Urine pH 5.5 (4.5-7.5) Ur Specific [place] 1.044 H (1.000-1.030) Urine Protein Negative (Negative) Urine Glucose (UA) 3+ H (Negative) Urine Ketones Negative (Negative) Urine Blood Negative (Negative) Urine Nitrite Negative (Negative) Urine Bilirubin Negative (Negative) Urine Urobilinogen Negative (Negative) Ur Leukocyte Esterase Negative (Negative) SARS-CoV-2 (PCR) NEGATIVE (Negative) Influenza Type A (PCR) Negative (Neg) Influenza Type B (PCR) Negative (Neg) RSV (RT-PCR) Negative (Neg) Blood Parasites ID 04/25/22 04/26/22 04/26/22 Range/Units 23:11 00:58 00:58 WBC RBC Hgb Hct MCV MCH MCHC RDW Std Deviation RDW Coeff of Mini Plt Count MPV Immature Gran % (Auto) Neut % (Auto) Lymph % (Auto) [place] % (Auto) Eos % (Auto) Baso % (Auto) Neut # (Auto) Lymph # (Auto) [place] # (Auto) Eos # (Auto) Baso # (Auto) Immature Gran # (Auto) Absolute Nucleated RBC Nucleated RBC % (auto) Neutrophils % (Manual) Band Neutrophils % Lymphocytes % (Manual) Prolymphocyte % Reactive Lymphs % (Man) Monocytes % (Manual) Eosinophils % (Manual) Basophils % (Manual) Metamyelocytes % (Man) Myelocytes % (Man) Promyelocytes % (Man) Blast Cells % (Manual) Plasma Cell % (Manual) Other Cells % Nucleated RBC % Neutrophils # (Manual) Band Neutrophils # Total Absolute Neuts Lymphocytes # (Manual) Prolymphocyte # Reactive Lymphs # Total Abs Lymphocytes Monocytes # (Manual) Eosinophils # (Manual) Basophils # (Manual) Metamyelocytes # (Man) Myelocytes # (Manual) Promyelocytes # (Man) Blast Cells # (Man) Plasma Cell # (Manual) Other Cells # Nucleated RBCs # (Man) Hypersegmented Neuts Hyposegmented Neuts Hypogranular Neuts Large Granular Lymphs # Lrg Granular Lymphs Hairy Cells Smudge Cells Toxic Granulation Toxic Vacuolation Dohle Bodies Nazanin Rods Platelet Estimate Hypogranular Platelets Clumped Platelets Giant Platelets Platelet Satelliting RBC Morphology Polychromasia Hypochromasia Poikilocytosis Basophilic Stippling Anisocytosis Microcytosis Macrocytosis Spherocytes Pappenheimer Bodies Sickle Cells Target Cells Tear Drop Cells Ovalocytes Stomatocytes Bills-[place] Bodies Echinocytes Acanthocytes (Spur) Rouleaux RBC Agglutinates Schistocytes Sezary Cell ABG pH (7.35-7.45) ABG pCO2 (35-46) mmHg ABG pO2 (80-95) mmHg ABG HCO3 (19-24) mmol/L ABG O2 Saturation (90-95) % ABG Base Excess (-9-1.8) mEq/L Harish Test (Pos) Oxygen Given Sodium (136-145) mmol/L Potassium (3.5-5.1) mmol/L Chloride (98-107) mmol/L Carbon Dioxide (21-32) mmol/L Anion Gap (3-11) BUN (6-23) mg/dl Creatinine (0.6-1.4) mg/dl Est Cr Clr Drug Dosing ml/min Est GFR ( Amer) ml/min Est GFR (Non-Af Amer) ml/min BUN/Creatinine Ratio (10-20) Glucose (70-99(Fasting)) mg/dl Lactate 1.2 (0.4-2.0) mmol/L Calcium (8.5-10.1) mg/dl Magnesium (1.7-2.4) mg/dl Total Bilirubin (0.2-1.0) mg/dl AST (13-39) U/L ALT (7-52) U/L Alkaline Phosphatase (34-104) U/L Troponin I High Sens (0-20) pg/ml B-Natriuretic Peptide 357 H (0-100) pg/ml Total Protein (6.0-8.3) gm/dl Albumin (3.4-5.0) gm/dl Globulin (2.5-4.0) gm/dl Albumin/Globulin Ratio (0.9-2) Lipase (11-82) U/L Procalcitonin < 0.05 (0-0.5) ng/ml TSH (0.300-4.500) uIu/ml Urine Color Urine Appearance (Clear) Urine pH (4.5-7.5) Ur Specific [place] (1.000-1.030) Urine Protein (Negative) Urine Glucose (UA) (Negative) Urine Ketones (Negative) Urine Blood (Negative) Urine Nitrite (Negative) Urine Bilirubin (Negative) Urine Urobilinogen (Negative) Ur Leukocyte Esterase (Negative) SARS-CoV-2 (PCR) (Negative) Influenza Type A (PCR) (Neg) Influenza Type B (PCR) (Neg) RSV (RT-PCR) (Neg) Blood Parasites ID 04/26/22 Range/Units 00:58 WBC RBC Hgb Hct MCV MCH MCHC RDW Std Deviation RDW Coeff of Mini Plt Count MPV Immature Gran % (Auto) Neut % (Auto) Lymph % (Auto) [place] % (Auto) Eos % (Auto) Baso % (Auto) Neut # (Auto) Lymph # (Auto) [place] # (Auto) Eos # (Auto) Baso # (Auto) Immature Gran # (Auto) Absolute Nucleated RBC Nucleated RBC % (auto) Neutrophils % (Manual) Band Neutrophils % Lymphocytes % (Manual) Prolymphocyte % Reactive Lymphs % (Man) Monocytes % (Manual) Eosinophils % (Manual) Basophils % (Manual) Metamyelocytes % (Man) Myelocytes % (Man) Promyelocytes % (Man) Blast Cells % (Manual) Plasma Cell % (Manual) Other Cells % Nucleated RBC % Neutrophils # (Manual) Band Neutrophils # Total Absolute Neuts Lymphocytes # (Manual) Prolymphocyte # Reactive Lymphs # Total Abs Lymphocytes Monocytes # (Manual) Eosinophils # (Manual) Basophils # (Manual) Metamyelocytes # (Man) Myelocytes # (Manual) Promyelocytes # (Man) Blast Cells # (Man) Plasma Cell # (Manual) Other Cells # Nucleated RBCs # (Man) Hypersegmented Neuts Hyposegmented Neuts Hypogranular Neuts Large Granular Lymphs # Lrg Granular Lymphs Hairy Cells Smudge Cells Toxic Granulation Toxic Vacuolation Dohle Bodies Nazanin Rods Platelet Estimate Hypogranular Platelets Clumped Platelets Giant Platelets Platelet Satelliting RBC Morphology Polychromasia Hypochromasia Poikilocytosis Basophilic Stippling Anisocytosis Microcytosis Macrocytosis Spherocytes Pappenheimer Bodies Sickle Cells Target Cells Tear Drop Cells Ovalocytes Stomatocytes Bills-[place] Bodies Echinocytes Acanthocytes (Spur) Rouleaux RBC Agglutinates [facility] Cell ABG pH 7.48 H (7.35-7.45) ABG pCO2 31 L (35-46) mmHg ABG pO2 74 L (80-95) mmHg ABG HCO3 23 (19-24) mmol/L ABG O2 Saturation 95.7 H (90-95) % ABG Base Excess 0.4 (-9-1.8) mEq/L Harish Test POS (Pos) Oxygen Given ROOM AIR Sodium (136-145) mmol/L Potassium (3.5-5.1) mmol/L Chloride (98-107) mmol/L Carbon Dioxide (21-32) mmol/L Anion Gap (3-11) BUN (6-23) mg/dl Creatinine (0.6-1.4) mg/dl Est Cr Clr Drug Dosing ml/min Est GFR ( Amer) ml/min Est GFR (Non-Af Amer) ml/min BUN/Creatinine Ratio (10-20) Glucose (70-99(Fasting)) mg/dl Lactate (0.4-2.0) mmol/L Calcium (8.5-10.1) mg/dl Magnesium (1.7-2.4) mg/dl Total Bilirubin (0.2-1.0) mg/dl AST (13-39) U/L ALT (7-52) U/L Alkaline Phosphatase (34-104) U/L Troponin I High Sens (0-20) pg/ml B-Natriuretic Peptide (0-100) pg/ml Total Protein (6.0-8.3) gm/dl Albumin (3.4-5.0) gm/dl Globulin (2.5-4.0) gm/dl Albumin/Globulin Ratio (0.9-2) Lipase (11-82) U/L Procalcitonin (0-0.5) ng/ml TSH (0.300-4.500) uIu/ml Urine Color Urine Appearance (Clear) Urine pH (4.5-7.5) Ur Specific [place] (1.000-1.030) Urine Protein (Negative) Urine Glucose (UA) (Negative) Urine Ketones (Negative) Urine Blood (Negative) Urine Nitrite (Negative) Urine Bilirubin (Negative) Urine Urobilinogen (Negative) Ur Leukocyte Esterase (Negative) SARS-CoV-2 (PCR) (Negative) Influenza Type A (PCR) (Neg) Influenza Type B (PCR) (Neg) RSV (RT-PCR) (Neg) Blood Parasites ID Imaging Data Radiologist's Impression: Head CT 04/25/22 20:22 CT OF THE HEAD WITHOUT CONTRAST CLINICAL HISTORY: ams COMPARISON STUDY: No previous studies for comparison. CT DOSE: 614.27 mGy.cm TECHNIQUE: Helical axial images of the head were obtained without IV contrast. Automated exposure control was utilized for the study. A dose lowering techni que was utilized adhering to the principles of ALARA. FINDINGS: No acute intracranial hemorrhage, midline shift or mass effect is present. The ventricular system is unremarkable. The basal cisterns are patent. No extra-axial collections are present. There are no findings to suggest acute dural sinus thrombosis or acute territorial infarct. No significant calvarial abnormalities are present. Visualized portions of the sinuses and mastoid air cells are clear. IMPRESSION: No acute intracranial findings. ACT 112: Negative or not required by law. Electronically signed by: David Rivera M.D. 04/25/2022 9:04 PM MDM Narrative An order was placed for continuous cardiac monitoring. The monitor shows a rate of _70_ with _normal sinus_ rhythm. THis is an 87 yo male who presents with his due to concern for confusion. VS stable. Patient with mild cough but no complaints on pain or SOB. Labs sent and reassuring. CT head reassuring. BNP elevated and CXR suggestive of evolving failure. While patient does have a hx of sundowning per his , she states his level of confusion is markedly worse even accounting for time of day. UA negative and nasal swab negative. Other labs reassuring. We discussed all results and given confusion, discussed the case with hospitalist team for additional evaluation. Impression & Plan AMS (altered mental status), Cough, Elevated brain natriuretic peptide (BNP) level Discharge Plan Visit Data Chief Complaint: Confusion Stated Complaint: confusion ED Provider: Vanessa Mustafa Discharge Problem: AMS (altered mental status), Cough, Elevated brain natriuretic peptide (BNP) level Patient Disposition: Admitted As Inpatient Discharge Instructions Interventions: ED Discharge Assessment Last Done: 04/26/22 04:09
[2022-04-25 21:37] LABS: Basophils # (auto) 0.04 K/uL (0-0.2); Basophils % (auto) 0.5 %; Eosinophils # (auto) 0.04 K/uL (0-0.50); Eosinophils % (auto) 0.5 %; Hematocrit (blood only) 45.6 % (40.1-51.0); Hemoglobin 15.1 g/dl (14.0-18.0); Immature Granulocytes # (auto) 0.06 K/uL (0.00-0.02); Immature Granulocytes % (auto) 0.7 %; Lymphocytes # (auto) 1.49 K/uL (1.2-3.4); Lymphocytes % (auto) 18.3 %; Mean Corpuscular Hemoglobin 29.2 pg (25.0-34.0); Mean Corpuscular Hgb Conc 33.1 g/dL (32.0-36.0); Mean Platelet Volume 11.3 fL (9.4-12.4); Monocytes # (auto) 0.88 K/uL (0.24-0.82); Monocytes % (auto) 10.8 %; Neutrophils # (auto) 5.62 K/uL (1.4-6.5); Neutrophils % (auto) 69.2 %; Platelet Count 165 K/uL (130-400); RDW Coefficient of Variation 14.9 % (11.5-14.5); RDW Standard Deviation 47.8 fL (36.4-46.3); Red Blood Count 5.18 M/uL (4.63-6.08); White Blood Count 8.13 K/ul (4.8-10.8)
[2022-04-25 22:14] LABS: Influenza A virus by PCR Negative (Neg); Influenza B virus by PCR Negative (Neg); RSV by PCR Negative (Neg); SARS CoV2 RNA(COVID-19) InHosp NEGATIVE (Negative)
--- NOTE | 2022-04-25 22:37 | XRay Report ---
XR chest 1V portable HISTORY: 87 years-old Male cough acute cough COMPARISON: Chest radiograph 01/17/2000 TECHNIQUE: AP view of the chest FINDINGS: Cardiac silhouette is enlarged. Left subclavian pacer. Pulmonary vascular congestion. No pneumothorax , large pleural effusion or lobar airspace consolidation. Mild bibasilar atelectasis/scarring. Bilate ral shoulder arthroplasties. IMPRESSION: 1. Cardiomegaly with pulmonary vascular congestion. 2. Mild bibasilar atelectasis. ACT 112: Negative or not required by law. The above report was generated using voice recognition software. It may contain grammatical, syntax o r spelling errors. Electronically signed by: Brenden Donald M.D. 04/25/2022 10:35 PM
[2022-04-25 23:09] LABS: Appearance Urine Clear (Clear); Bilirubin Urine Negative (Negative); Blood Urine Negative (Negative); Color Urine Yellow; Glucose Urine UA 3+ (Negative); Ketones Urine Negative (Negative); Leukocyte Esterase Urine Negative (Negative); Nitrite Urine Negative (Negative); Protein Urine Negative (Negative); Specific Gravity Urine 1.044 (1.000-1.030); Urobilinogen Urine Negative (Negative); pH Urine 5.5 (4.5-7.5)
[2022-04-26] MEDS ORDERED: ACETAMINOPHEN 325 MG TAB PO STA (00:34)
[2022-04-26] MEDS ORDERED: ALBUMIN 25% 100 mL 25 GM/100 ML VIAL IV ONE (00:36)
[2022-04-26] MEDS ORDERED: FUROSEMIDE INJ 20 MG/2 ML VIAL IV ONE (00:36)
[2022-04-26 01:10] LABS: Base Excess ABG 0.4 mEq/L (-9-1.8); HCO3 ABG 23 mmol/L (19-24); Oxygen Saturation ABG 95.7 % (90-95); PCO2 ABG 31 mmHg (35-46); PO2 ABG 74 mmHg (80-95); pH ABG 7.48 (7.35-7.45)
[2022-04-26] MEDS ORDERED: DOXYCYCLINE HYCLATE 100 MG in DEXTROSE 5% 100 ML IV STA (01:26)
[2022-04-26 02:03] LABS: Allen Test POS (Pos)
[2022-04-26] MEDS ORDERED: ALBUT/IPRATROP 3MG/0.5MG NEB 3 ML VIAL NEB STA (02:45)
--- NOTE | 2022-04-26 02:45 | History & Physical Report ---
Date of Service April 26, 2022 Assessment & Plan (1) Encephalopathy: Plan: History dementia secondary to complicated bronchitis No overt sepsis for now chronic diastolic heart failure (EF 64%, TTE 2020), equivocal volume status given congestion on CXR mild aortic stenosis CAD status post CABG SSS status post PPM/hx PAF as per records hypertension, BP stable hyperlipidemia, on statin Rx colon cancer status post surgery/incomplete chemotherapy, in remission prostate cancer status post radiation, currently in remission DM2 on oral medications, suboptimal control as of recent hemoglobin A1c of 8.3 last March 2022 past history DVT Medical telemetry Doxycycline, nebs RTC Basal bolus insulin, ISS BG goal 1 10-1 40, carb count coverage PT OT eval DVT prophylaxis. Lovenox subcu Full code as per , Ms. Carlene Noyola. She requests updates from providers through [phone]. Text document was generated using [employer] voice recognition software. It may contain grammatical or spelling errors. Kindly contact undersigned for clarification of any documentation item in question. History of Present Illness Chief Complaint: Cough as per patient Confusion as per Primary Care Provider: Victoria Saldana, History obtained from patient, family, and records. Patient is a fair historian. Medical history significant for chronic diastolic heart failure (EF 64%, TTE 2020), mild aortic stenosis, CAD sp CABG, SSS status post PPM, PAF, hypertension, hyperlipidemia, colon cancer status post surgery/incomplete chemotherapy, prostate cancer status post radiation, DM2 on oral medications, past history DVT, dementia. Last confinement January 2022 for recurrent falls. Patient noted to have junky cough symptoms the last 2 days. Not sure about sick contacts. Patient completed COVID-19 vaccination. Poor appetite. Patient more confused than usual as per . Patient denies chest pain, shortness of breath, abdominal pain. Patient brought to the ER for evaluation. Medical History as above Surgical History : Partial colectomy, cataract surgeries, hip surgeries, right shoulder surgery Family History : Hypertension Personal/Social history : Non-smoker, occasional EtOH intake, retired [employer] employee Allergies Allergy/AdvReac Type Severity Reaction Status Date / Time hydrocodone AdvReac Intermediate MAKES PT Verified 04/26/22 01:38 HALLUCINATE meperidine AdvReac Intermediate psych Verified 04/26/22 01:38 complications oxycodone AdvReac Intermediate MAKES PT Verified 04/26/22 01:38 HALLUCINATES Home Medications Medication Instructions Recorded Confirmed Type aspirin 81 mg tablet,delayed 81 mg PO QAM 07/25/19 04/26/22 History release citalopram 20 mg tablet 20 mg PO QAM 07/25/19 04/26/22 History empagliflozin 25 mg tablet 25 mg PO QAM 07/25/19 04/26/22 History (Jardiance) gabapentin 100 mg capsule 100 mg PO BID 07/25/19 04/26/22 History meclizine 25 mg tablet 25 mg PO DAILY PRN Dizziness 07/25/19 04/26/22 History metformin 500 mg tablet 500 mg PO BIDM 07/25/19 04/26/22 History multivitamin with minerals 1 tab PO QAM 07/25/19 04/26/22 History omega 3-tim-srb-fish oil 1,000 mg 1 cap PO QAM 07/25/19 04/26/22 History (120 mg-180 mg) capsule (Fish Oil) atorvastatin 40 mg tablet 40 mg PO QPM 07/23/21 04/26/22 History clopidogrel 75 mg tablet 75 mg PO DAILY 07/23/21 04/26/22 History donepezil 10 mg tablet 10 mg PO HS 07/23/21 04/26/22 History isosorbide mononitrate 30 mg 30 mg PO DAILY 07/23/21 04/26/22 History tablet,extended release 24 hr metoprolol succinate 50 mg 50 mg PO DAILY 07/23/21 04/26/22 History tablet,extended release 24 hr loperamide 2 mg tablet 2 mg PO DAILY 04/26/22 04/26/22 History melatonin 1 mg tablet 3 mg PO HS 04/26/22 04/26/22 History Past Med/Surg History Medical History CAD (coronary artery disease) Dementia Depression Diabetes mellitus, type 2 Diabetic neuropathy Hearing deficit History of colon cancer 2017--sx/oral chemo History of deep vein thrombosis (DVT) of lower extremity right leg---no blood thinners History of prostate cancer 2013--sx/radiation Hyperlipidemia Hypertension Myocardial Infarction hx of NSTEMI in setting of sepsis July [address] segment elevation myocardial manage medically, occurring in the setting of acute sepsis secondary abdominal abscess following colon resection for colon cancer. Sleep apnea cpap Surgical History H/O colectomy History of bilateral cataract extraction History of colon resection 2018 @ [facility] [place] d/t cancer History of left shoulder replacement History of open reduction and internal fixation (ORIF) procedure right ankle--no hardware History of prostate biopsy malignant History of prostatectomy d/t cancer History of revision of total replacement of right hip joint History of right shoulder replacement History of tooth extraction all teeth History of total left hip replacement History of total right hip replacement S/P cataract surgery S/P hip replacement Family History Denies family history of Heart disease Social History Smoking Status: Never smoker Number of Years Since Quit: 3; Second Hand Exposure: No; Do You Dip or Chew Tobacco: No; Tobacco Cessation Education Requested by Patient: No Hx Alcohol Use: No Hx Substance Use: No Preferred Language: Moldovan Communication Ability: Effective Art Conservator Required: No Beliefs That Will Affect Care: None Current Living Situation: Spouse Other Information That Helps Us Care for You: No Feels Safe at Home: Yes Safety Concerns: Feels Safe At This Time Assistive Devices: Cane and Walker Review of Systems Review of Systems: Could not be reliably obtained secondary to disorientation Physical Exam Physical Exam: GENERAL: Slightly uncomfortable, pleasant, oriented to place no respiratory distress SKIN: Normal color, warm HEENT: Alopecia, [place] palpebral conjunctivae, no ptosis, dry buccal mucosa NECK : Supple, no tenderness CHEST : Decreased breath sounds, expiratory wheezes, no tenderness HEART : RRR, no obvious murmurs ABDOMEN: Some distention, nontender EXTREMITIES : Minimal LE swelling, no LE tenderness, no other conspicuous deformities noted NEUROLOGIC : Coherent, oriented to place, no facial asymmetry, gait and stance not assessed Results & Data Results & Data ([facility]) Vital Signs (Past 12 Hours) Vital Signs Temp Pulse Resp BP Pulse Ox O2 Del Method 04/26/22 00:00 36.8 C 04/25/22 23:30 91 04/25/22 23:00 96 04/25/22 22:30 96 04/25/22 22:20 132/84 04/25/22 22:18 80 L 04/25/22 22:00 94 04/25/22 21:30 98 04/25/22 21:00 96 04/25/22 20:30 60 20 94 04/25/22 20:04 64 16 95 04/25/22 19:43 94 Room Air 04/25/22 19:32 37.6 C H 86 20 135/80 94 Room Air Laboratory Results Laboratory Results WBC 8.13 K/ul (4.8-10.8) 04/25/22 21:15 RBC 5.18 M/uL (4.63-6.08) 04/25/22 21:15 Hgb 15.1 g/dl (14.0-18.0) 04/25/22 21:15 Hct 45.6 % (40.1-51.0) 04/25/22 21:15 MCV 88.0 fL (80.0-100.0) 04/25/22 21:15 MCH 29.2 pg (25.0-34.0) 04/25/22 21:15 MCHC 33.1 g/dL (32.0-36.0) 04/25/22 21:15 RDW Std Deviation 47.8 fL (36.4-46.3) H 04/25/22 21:15 RDW Coeff of Mini 14.9 % (11.5-14.5) H 04/25/22 21:15 Plt Count 165 K/uL (130-400) 04/25/22 21:15 MPV 11.3 fL (9.4-12.4) 04/25/22 21:15 Immature Gran % (Auto) 0.7 % 04/25/22 21:15 Neut % (Auto) 69.2 % 04/25/22 21:15 Lymph % (Auto) 18.3 % 04/25/22 21:15 [place] % (Auto) 10.8 % 04/25/22 21:15 Eos % (Auto) 0.5 % 04/25/22 21:15 Baso % (Auto) 0.5 % 04/25/22 21:15 Neut # (Auto) 5.62 K/uL (1.4-6.5) 04/25/22 21:15 Lymph # (Auto) 1.49 K/uL (1.2-3.4) 04/25/22 21:15 [place] # (Auto) 0.88 K/uL (0.24-0.82) H 04/25/22 21:15 Eos # (Auto) 0.04 K/uL (0-0.50) 04/25/22 21:15 Baso # (Auto) 0.04 K/uL (0-0.2) 04/25/22 21:15 Immature Gran # (Auto) 0.06 K/uL (0.00-0.02) H 04/25/22 21:15 Absolute Nucleated RBC Cancelled 04/25/22 19:54 Nucleated RBC % (auto) Cancelled 04/25/22 19:54 Neutrophils % (Manual) Cancelled 04/25/22 19:54 Band Neutrophils % Cancelled 04/25/22 19:54 Lymphocytes % (Manual) Cancelled 04/25/22 19:54 Prolymphocyte % Cancelled 04/25/22 19:54 Reactive Lymphs % (Man) Cancelled 04/25/22 19:54 Monocytes % (Manual) Cancelled 04/25/22 19:54 Eosinophils % (Manual) Cancelled 04/25/22 19:54 Basophils % (Manual) Cancelled 04/25/22 19:54 Metamyelocytes % (Man) Cancelled 04/25/22 19:54 Myelocytes % (Man) Cancelled 04/25/22 19:54 Promyelocytes % (Man) Cancelled 04/25/22 19:54 Blast Cells % (Manual) Cancelled 04/25/22 19:54 Plasma Cell % (Manual) Cancelled 04/25/22 19:54 Other Cells % Cancelled 04/25/22 19:54 Nucleated RBC % Cancelled 04/25/22 19:54 Neutrophils # (Manual) Cancelled 04/25/22 19:54 Band Neutrophils # Cancelled 04/25/22 19:54 Total Absolute Neuts Cancelled 04/25/22 19:54 Lymphocytes # (Manual) Cancelled 04/25/22 19:54 Prolymphocyte # Cancelled 04/25/22 19:54 Reactive Lymphs # Cancelled 04/25/22 19:54 Total Abs Lymphocytes Cancelled 04/25/22 19:54 Monocytes # (Manual) Cancelled 04/25/22 19:54 Eosinophils # (Manual) Cancelled 04/25/22 19:54 Basophils # (Manual) Cancelled 04/25/22 19:54 Metamyelocytes # (Man) Cancelled 04/25/22 19:54 Myelocytes # (Manual) Cancelled 04/25/22 19:54 Promyelocytes # (Man) Cancelled 04/25/22 19:54 Blast Cells # (Man) Cancelled 04/25/22 19:54 Plasma Cell # (Manual) Cancelled 04/25/22 19:54 Other Cells # Cancelled 04/25/22 19:54 Nucleated RBCs # (Man) Cancelled 04/25/22 19:54 Hypersegmented Neuts Cancelled 04/25/22 19:54 Hyposegmented Neuts Cancelled 04/25/22 19:54 Hypogranular Neuts Cancelled 04/25/22 19:54 Large Granular Lymphs Cancelled 04/25/22 19:54 # Lrg Granular Lymphs Cancelled 04/25/22 19:54 Hairy Cells Cancelled 04/25/22 19:54 Smudge Cells Cancelled 04/25/22 19:54 Toxic Granulation Cancelled 04/25/22 19:54 Toxic Vacuolation Cancelled 04/25/22 19:54 Dohle Bodies Cancelled 04/25/22 19:54 Nazanin Rods Cancelled 04/25/22 19:54 Platelet Estimate Cancelled 04/25/22 19:54 Hypogranular Platelets Cancelled 04/25/22 19:54 Clumped Platelets Cancelled 04/25/22 19:54 Giant Platelets Cancelled 04/25/22 19:54 Platelet Satelliting Cancelled 04/25/22 19:54 RBC Morphology Cancelled 04/25/22 19:54 Polychromasia Cancelled 04/25/22 19:54 Hypochromasia Cancelled 04/25/22 19:54 Poikilocytosis Cancelled 04/25/22 19:54 Basophilic Stippling Cancelled 04/25/22 19:54 Anisocytosis Cancelled 04/25/22 19:54 Microcytosis Cancelled 04/25/22 19:54 Macrocytosis Cancelled 04/25/22 19:54 Spherocytes Cancelled 04/25/22 19:54 Pappenheimer Bodies Cancelled 04/25/22 19:54 Sickle Cells Cancelled 04/25/22 19:54 Target Cells Cancelled 04/25/22 19:54 Tear Drop Cells Cancelled 04/25/22 19:54 Ovalocytes Cancelled 04/25/22 19:54 Stomatocytes Cancelled 04/25/22 19:54 [place] Bodies Cancelled 04/25/22 19:54 Echinocytes Cancelled 04/25/22 19:54 Acanthocytes (Spur) Cancelled 04/25/22 19:54 Rouleaux Cancelled 04/25/22 19:54 RBC Agglutinates Cancelled 04/25/22 19:54 Schistocytes Cancelled 04/25/22 19:54 Sezary Cell Cancelled 04/25/22 19:54 ABG pH 7.48 (7.35-7.45) H 04/26/22 00:58 ABG pCO2 31 mmHg (35-46) L 04/26/22 00:58 ABG pO2 74 mmHg (80-95) L 04/26/22 00:58 ABG HCO3 23 mmol/L (19-24) 04/26/22 00:58 ABG O2 Saturation 95.7 % (90-95) H 04/26/22 00:58 ABG Base Excess 0.4 mEq/L (-9-1.8) 04/26/22 00:58 Harish Test POS (Pos) 04/26/22 00:58 Oxygen Given ROOM AIR 04/26/22 00:58 Sodium 141 mmol/L (136-145) 04/25/22 19:54 Potassium 4.0 mmol/L (3.5-5.1) 04/25/22 19:54 Chloride 108 mmol/L (98-107) H 04/25/22 19:54 Carbon Dioxide 22 mmol/L (21-32) 04/25/22 19:54 Anion Gap 11 (3-11) 04/25/22 19:54 BUN 20 mg/dl (6-23) 04/25/22 19:54 Creatinine 1.08 mg/dl (0.6-1.4) 04/25/22 19:54 Est Cr Clr Drug Dosing 61.5 ml/min 04/25/22 19:54 Est GFR ( Amer) 71.1 ml/min 04/25/22 19:54 Est GFR (Non-Af Amer) 61.4 ml/min 04/25/22 19:54 BUN/Creatinine Ratio 18.5 (10-20) 04/25/22 19:54 Glucose 235 mg/dl (70-99(Fasting)) H 04/25/22 19:54 Lactate 1.2 mmol/L (0.4-2.0) 04/26/22 00:58 Calcium 8.7 mg/dl (8.5-10.1) 04/25/22 19:54 Magnesium 2.0 mg/dl (1.7-2.4) 04/25/22 19:54 Total Bilirubin 0.6 mg/dl (0.2-1.0) 04/25/22 19:54 AST 19 U/L (13-39) 04/25/22 19:54 ALT 18 U/L (7-52) 04/25/22 19:54 Alkaline Phosphatase 75 U/L (34-104) 04/25/22 19:54 Troponin I High Sens 11.7 pg/ml (0-20) 04/25/22 19:54 B-Natriuretic Peptide 357 pg/ml (0-100) H 04/25/22 23:11 Total Protein 6.2 gm/dl (6.0-8.3) 04/25/22 19:54 Albumin 4.2 gm/dl (3.4-5.0) 04/25/22 19:54 Globulin 2.0 gm/dl (2.5-4.0) L 04/25/22 19:54 Albumin/Globulin Ratio 2.1 (0.9-2) H 04/25/22 19:54 Lipase 29 U/L (11-82) 04/25/22 19:54 Procalcitonin < 0.05 ng/ml (0-0.5) 04/26/22 00:58 TSH 1.618 uIu/ml (0.300-4.500) 04/25/22 19:54 Urine Color Yellow 04/25/22 19:54 Urine Appearance Clear (Clear) 04/25/22 19:54 Urine pH 5.5 (4.5-7.5) 04/25/22 19:54 Ur Specific [place] 1.044 (1.000-1.030) H 04/25/22 19:54 Urine Protein Negative (Negative) 04/25/22 19:54 Urine Glucose (UA) 3+ (Negative) H 04/25/22 19:54 Urine Ketones Negative (Negative) 04/25/22 19:54 Urine Blood Negative (Negative) 04/25/22 19:54 Urine Nitrite Negative (Negative) 04/25/22 19:54 Urine Bilirubin Negative (Negative) 04/25/22 19:54 Urine Urobilinogen Negative (Negative) 04/25/22 19:54 Ur Leukocyte Esterase Negative (Negative) 04/25/22 19:54 SARS-CoV-2 (PCR) NEGATIVE (Negative) 04/25/22 21:18 Influenza Type A (PCR) Negative (Neg) 04/25/22 21:18 Influenza Type B (PCR) Negative (Neg) 04/25/22 21:18 RSV (RT-PCR) Negative (Neg) 04/25/22 21:18 Blood Parasites ID Cancelled 04/25/22 19:54 Impressions Chest X-Ray 04/25/22 20:22 XR chest 1V portable HISTORY: 87 years-old Male cough acute cough COMPARISON: Chest radiograph 01/17/2000 TECHNIQUE: AP view of the chest FINDINGS: Cardiac silhouette is enlarged. Left subclavian pacer. Pulmonary vascular congestion. No pneumothorax, large pleural effusion or lobar airspace consolidation. Mild bibasilar atelectasis/scarring. Bilateral shoulder arthroplasties. IMPRESSION: 1. Cardiomegaly with pulmonary vascular congestion. 2. Mild bibasilar atelectasis. ACT 112: Negative or not required by law. The above report was generated using voice recognition software. It may contain grammatical, syntax or spelling errors. Electronically signed by: Brenden Donald M.D. 04/25/2022 10:[address] 04/25/22 20:22 CT OF THE HEAD WITHOUT CONTRAST CLINICAL HISTORY: ams COMPARISON STUDY: No previous studies for comparison. CT DOSE: 614.27 mGy.cm TECHNIQUE: Helical axial images of the head were obtained without IV contrast. Automated exposure control was utilized for the study. A dose lowering technique was utilized adhering to the principles of ALARA. FINDINGS: No acute intracranial hemorrhage, midline shift or mass effect is present. The ventricular system is unremarkable. The basal cisterns are patent. No extra-axial collections are present. There are no findings to suggest acute dural sinus thrombosis or acute territorial infarct. No significant calvarial abnormalities are present. Visualized portions of the sinuses and mastoid air cells are clear. IMPRESSION: No acute intracranial findings. ACT 112: Negative or not required by law. Electronically signed by: David Rivera M.D. 04/25/2022 9:04 PM Diagnostic Findings EKG as per my interpretation : Rate 70, NSR, LAD, LAFB, RBBB, T wave abnormalities inferior leads
[2022-04-26] MEDS ORDERED: GLUCOSE 40% GEL 15 GM TUBE PO PRN (04:54)
[2022-04-26] MEDS ORDERED: PROMETHAZINE HCL 12.5 MG in SODIUM CHLORIDE 0.9% 50 ML IV PRN (04:54)
[2022-04-26] MEDS ORDERED: GLUCAGON FOR INJ 1 MG VIAL SQ PRN (04:54)
[2022-04-26] MEDS ORDERED: DEXTROSE 50% 50 ML SYRINGE IV PRN (04:54)
[2022-04-26] MEDS ORDERED: CARBOHYDRATES FOR HYPOGLYCEMIA PO PRN (04:54)
[2022-04-26] MEDS ORDERED: ACETAMINOPHEN 325 MG TAB PO PRN (04:54)
[2022-04-26] MEDS ORDERED: GLUCOSE 10 TAB/TUBE PO PRN (04:54)
[2022-04-26] MEDS ORDERED: INFLUENZA VACCINE HIGH DOSE PF 65+ 0.7 ML SYR IM ONE (05:05)
[2022-04-26] MEDS: INSULIN ASPART PER UNIT SC SCH ×4 (05:13→23:27)
[2022-04-26] MEDS: LANTUS PER UNIT CHARGE SQ SCH (05:13)
[2022-04-26 06:02] LABS: Basophils # (auto) 0.02 K/uL (0-0.2); Basophils % (auto) 0.3 %; Eosinophils # (auto) 0.05 K/uL (0-0.50); Eosinophils % (auto) 0.7 %; Hematocrit (blood only) 40.5 % (40.1-51.0); Hemoglobin 13.6 g/dl (14.0-18.0); Immature Granulocytes # (auto) 0.05 K/uL (0.00-0.02); Immature Granulocytes % (auto) 0.7 %; Lymphocytes # (auto) 1.54 K/uL (1.2-3.4); Lymphocytes % (auto) 20.5 %; Mean Corpuscular Hemoglobin 29.6 pg (25.0-34.0); Mean Corpuscular Hgb Conc 33.6 g/dL (32.0-36.0); Mean Platelet Volume 10.7 fL (9.4-12.4); Monocytes # (auto) 0.86 K/uL (0.24-0.82); Monocytes % (auto) 11.4 %; Neutrophils # (auto) 5.01 K/uL (1.4-6.5); Neutrophils % (auto) 66.4 %; Platelet Count 148 K/uL (130-400); RDW Coefficient of Variation 14.7 % (11.5-14.5); RDW Standard Deviation 47.3 fL (36.4-46.3); White Blood Count 7.53 K/ul (4.8-10.8)
[2022-04-26 06:33] LABS: BUN Creatinine Ratio 17.8 (10-20); Calcium 9.1 mg/dl (8.5-10.1); Creatinine Clr Calc Pharmacy 63.4 ml/min; Est GFR (African American) 77.2 ml/min; Est GFR (Non-African American) 66.6 ml/min; Potassium 3.8 mmol/L (3.5-5.1)
[2022-04-26] MEDS: LEVALBUTEROL 1.25MG/0.5ML NEB INH SCH ×4 (07:19→19:29)
[2022-04-26] MEDS: IPRATROPIUM BROMIDE NEB SOLN 0.02% 2.5 ML VIAL INH SCH ×4 (07:19→19:29)
[2022-04-26] MEDS ORDERED: XOPENEX/ATROVENT 1.25mg/0.5MG NEB COMBO NEB SCH (09:00)
[2022-04-26] MEDS: CITALOPRAM 20 MG TAB PO SCH (10:04)
[2022-04-26] MEDS: GABAPENTIN 100 MG CAP PO SCH ×2 (10:04→23:17)
[2022-04-26] MEDS: CLOPIDOGREL BISULFATE 75 MG TAB PO SCH (10:04)
[2022-04-26] MEDS: CEROVITE ADV FORMULA TAB PO SCH (10:04)
[2022-04-26] MEDS: METOPROLOL SUCC 50MG EXT REL TAB PO SCH (10:04)
[2022-04-26] MEDS: ASPIRIN 81 MG ECTAB PO SCH (10:04)
[2022-04-26] MEDS: ISOSORBIDE MONO EXTENDED REL 30 MG TABCR PO SCH (10:04)
--- NOTE | 2022-04-26 15:42 | Hospitalist Progress Note ---
Date of Service April 26, 2022 Assessment & Plan (1) Encephalopathy: Plan: Suspected acute metabolic encephalopathy H/O Dementia --CT head:No acute intracranial findings --UA: Not suggestive of UTI Blood cultures pending Ammonia level pending Reorient frequently to minimize delirium Acute Bronchitis No overt sepsis COVID, influenza, RSV screen negative CXR:Cardiomegaly with pulmonary vascular congestion. Mild bibasilar atelectasis. Normal procalcitonin Continue doxycycline Chronic diastolic heart failure EF 64%, TTE 2020 Monitor volume status Diuretics if needed CAD S/P CABG Mild aortic stenosis SSS S/P PPM H/O P.Afib Continue aspirin, Plavix, Lipitor, metoprolol Also on Isosorbide Hypertension Hyperlipidemia Continue home medications Colon cancer S/P Surgery, chemotherapy In remission H/O Prostate cancer S/P Radiation In remission DM II HbA1C:8.3 Mar 2022 Hold p.o. medications Continue insulin per protocol Monitor BGs Dementia Vascular Vs Alzheimer's dementia as per records Continue Aricept DVT Px: Lovenox SQ Code Status Full code Disposition PT OT prior to discharge Admission and Anticipated Discharge Date Admission Date: April 26, 2022 Subjective Patient is seen and examined at bedside Oriented x3 during my encounter States having mild cough but no expectoration Intermittently confused per RN Denies any chest pain, dyspnea, dizziness, nausea, abdominal pain Saturating well on room air Review of Systems Review of Systems: All systems reviewed & are unremarkable except as noted in Subjective Physical Exam Physical Exam: Physical Exam: Vitals signs as noted above General Appearance:Moderately built and nourished, no apparent distress Head: normocephalic, Atraumatic Eyes: normal inspection, EOMI Neck: supple, Trachea midline Respiratory/Chest: Decreased breath sounds, CTA, No accessory muscle use Cardiovascular: S1, S2, No murmur Abdomen/GI:Soft, Non tender, Bowel sounds present Extremities/Musculoskeletal:normal inspection, Trace edema Neurologic/Psych:AAO, grossly no focal neurological deficits Skin: normal color, warm Results & Data Results & Data ([facility]) Vital Signs (Past 12 Hours) Vital Signs Temp Pulse Pulse Pulse Resp BP BP 04/26/22 15:02 60 04/26/22 13:26 36.7 C 76 20 153/79 H 04/26/22 11:01 62 18 04/26/22 08:41 36.6 C 89 20 136/74 04/26/22 07:21 60 18 04/26/22 06:56 60 04/26/22 04:54 60 04/26/22 05:00 04/26/22 04:54 36.7 C 68 18 147/72 H 04/26/22 04:09 37 C 65 20 116/74 Pulse Ox O2 Del Method 04/26/22 15:02 04/26/22 13:26 96 Room Air 04/26/22 11:01 95 Room Air 04/26/22 08:41 97 Room Air 04/26/22 07:21 94 Room Air 04/26/22 06:56 04/26/22 04:54 04/26/22 05:00 Room Air 04/26/22 04:54 92 Room Air 04/26/22 04:09 94 Room Air Laboratory Results Short CBC 04/25/22 04/25/22 04/26/22 Range/Units 19:54 21:15 05:34 WBC Cancelled 8.13 7.53 Hgb Cancelled 15.1 13.6 L Hct Cancelled 45.6 40.5 Plt Count Cancelled 165 148 BMP 04/25/22 04/26/22 19:54 05:34 Sodium 141 141 Potassium 4.0 3.8 Chloride 108 H 107 Carbon Dioxide 22 24 BUN 20 18 Creatinine 1.08 1.01 Glucose 235 H 176 H Calcium 8.7 9.1 Liver Function 04/25/22 Range/Units 19:54 Total Bilirubin 0.6 (0.2-1.0) mg/dl AST 19 (13-39) U/L ALT 18 (7-52) U/L Alkaline Phosphatase 75 (34-104) U/L Albumin 4.2 (3.4-5.0) gm/dl Urine 04/25/22 Range/Units 19:54 Urine Color Yellow Urine Appearance Clear (Clear) Urine pH 5.5 (4.5-7.5) Ur Specific [place] 1.044 H (1.000-1.030) Urine Protein Negative (Negative) Urine Glucose (UA) 3+ H (Negative)
--- NOTE | 2022-04-26 16:25 | Electrocardiogram Report ---
Test Reason : Blood Pressure : / mmHG Vent. Rate : 072 BPM Atrial Rate : 072 BPM P-R Int : 156 ms QRS Dur : 130 ms QT Int : 470 ms P-R-T Axes : 000 -63 014 degrees QTc Int : 514 ms Atrial flutter with variable A-V block Left axis deviation Right bundle branch block Abnormal ECG When compared with ECG of 16-JAN-2022 11:45, Atrial flutter has replaced Electronic ventricular pacemaker Confirmed by Ty Flores ([id number]) on 04/26/2022 4:24:35 PM Referred By: REFERRED SELF Confirmed By:Ty Flores
[2022-04-26] MEDS ORDERED: XOPENEX/ATROVENT 1.25mg/0.5MG NEB COMBO NEB PRN (21:01)
[2022-04-26] MEDS ORDERED: IPRATROPIUM BROMIDE NEB SOLN 0.02% 2.5 ML VIAL INH SCH (21:15)
[2022-04-26] MEDS ORDERED: LEVALBUTEROL 1.25MG/0.5ML NEB INH PRN (21:15)
[2022-04-26] MEDS ORDERED: IPRATROPIUM BROMIDE NEB SOLN 0.02% 2.5 ML VIAL INH PRN (21:30)
[2022-04-26] MEDS: MELATONIN 3 MG TAB PO SCH (23:16)
[2022-04-26] MEDS: ATORVASTATIN 40 MG TAB PO SCH (23:17)
[2022-04-26] MEDS: DOXYCYCLINE HYCLATE 100 MG CAP PO SCH (23:17)
[2022-04-26] MEDS: DONEPEZIL HCL 10 MG TAB PO SCH (23:17)
[2022-04-27 07:52] LABS: Hematocrit (blood only) 42.6 % (40.1-51.0); Mean Corpuscular Hemoglobin 29.4 pg (25.0-34.0); Mean Corpuscular Hgb Conc 32.9 g/dL (32.0-36.0); Mean Corpuscular Volume 89.3 fL (80.0-100.0); Mean Platelet Volume 10.5 fL (9.4-12.4); Platelet Count 140 K/uL (130-400); RDW Coefficient of Variation 14.9 % (11.5-14.5); RDW Standard Deviation 49.4 fL (36.4-46.3); Red Blood Count 4.77 M/uL (4.63-6.08); White Blood Count 5.61 K/ul (4.8-10.8)
[2022-04-27 08:06] LABS: BUN Creatinine Ratio 23.3 (10-20); Calcium 9.5 mg/dl (8.5-10.1); Creatinine Clr Calc Pharmacy 62.1 ml/min; Est GFR (African American) 75.3 ml/min; Potassium 3.7 mmol/L (3.5-5.1)
[2022-04-27] MEDS: DOXYCYCLINE HYCLATE 100 MG CAP PO SCH ×2 (09:50→22:15)
[2022-04-27] MEDS: CITALOPRAM 20 MG TAB PO SCH (09:50)
[2022-04-27] MEDS: METOPROLOL SUCC 50MG EXT REL TAB PO SCH (09:50)
[2022-04-27] MEDS: ASPIRIN 81 MG ECTAB PO SCH (09:50)
[2022-04-27] MEDS: CEROVITE ADV FORMULA TAB PO SCH (09:50)
[2022-04-27] MEDS: GABAPENTIN 100 MG CAP PO SCH ×2 (09:50→22:14)
[2022-04-27] MEDS: CLOPIDOGREL BISULFATE 75 MG TAB PO SCH (09:50)
[2022-04-27] MEDS: ISOSORBIDE MONO EXTENDED REL 30 MG TABCR PO SCH (09:50)
[2022-04-27] MEDS: INSULIN ASPART PER UNIT SC SCH ×4 (10:49→22:15)
[2022-04-27] MEDS: LANTUS PER UNIT CHARGE SQ SCH (11:23)
[2022-04-27] MEDS: ENOXAPARIN INJ 40 MG/0.4 ML SYR SQ SCH (12:36)
--- NOTE | 2022-04-27 15:24 | Hospitalist Progress Note ---
Date of Service April 27, 2022 Assessment & Plan (1) Encephalopathy: Plan: Suspected acute metabolic encephalopathy H/O Dementia --CT head:No acute intracranial findings --UA: Not suggestive of UTI Blood cultures no growth to date Ammonia level Normal Reorient frequently to minimize delirium PT OT plan to discharge Acute Bronchitis No overt sepsis COVID, influenza, RSV screen negative CXR:Cardiomegaly with pulmonary vascular congestion. Mild bibasilar atelectasis. Normal procalcitonin Continue doxycycline Chronic diastolic heart failure EF 64%, TTE 2020 Monitor volume status Diuretics if needed CAD S/P CABG Mild aortic stenosis SSS S/P PPM H/O P.Afib Continue aspirin, Plavix, Lipitor, metoprolol Also on Isosorbide Hypertension Hyperlipidemia Continue home medications Colon cancer S/P Surgery, chemotherapy In remission H/O Prostate cancer S/P Radiation In remission DM II HbA1C:8.3 Mar 2022 Hold p.o. medications Continue insulin per protocol Monitor BGs Dementia Vascular Vs Alzheimer's dementia as per records Continue Aricept DVT Px: Lovenox SQ Code Status Full code Disposition PT OT prior to discharge Admission and Anticipated Discharge Date Admission Date: April 26, 2022 Subjective Patient is seen and examined at bedside Less cough today Discussed with patient's at bedside Ongoing confusion since past couple of years Denies any chest pain, dyspnea, dizziness, nausea, abdominal pain Review of Systems Review of Systems: All systems reviewed & are unremarkable except as noted in Subjective Physical Exam Physical Exam: Physical Exam: Vitals signs as noted above General Appearance:Moderately built and nourished, no apparent distress Head: normocephalic, Atraumatic Eyes: normal inspection, EOMI Neck: supple, Trachea midline Respiratory/Chest: Decreased breath sounds, CTA, No accessory muscle use Cardiovascular: S1, S2, No murmur Abdomen/GI:Soft, Non tender, Bowel sounds present Extremities/Musculoskeletal:normal inspection, Trace edema Neurologic/Psych:AAO, grossly no focal neurological deficits Skin: normal color, warm Results & Data Results & Data ([facility]) Vital Signs (Past 12 Hours) Vital Signs Temp Pulse Pulse Resp BP BP Pulse Ox 04/27/22 08:00 04/27/22 12:04 36.7 C 61 20 105/66 94 04/27/22 07:58 36.3 C L 67 20 160/82 H 95 04/27/22 07:54 71 O2 Del Method 04/27/22 08:00 Room Air 04/27/22 12:04 Room Air 04/27/22 07:58 Room Air 04/27/22 07:54 Laboratory Results Short CBC 04/27/22 Range/Units 07:16 WBC 5.61 (4.8-10.8) K/ul Hgb 14.0 (14.0-18.0) g/dl Hct 42.6 (40.1-51.0) % Plt Count 140 (130-400) K/uL BMP 04/27/22 07:16 Sodium 136 Potassium 3.7 Chloride 104 Carbon Dioxide 25 BUN 24 H Creatinine 1.03 Glucose 147 H Calcium 9.5
[2022-04-27 17:18] LABS: Anion Gap 10.2 (3-11)
[2022-04-27] MEDS: ATORVASTATIN 40 MG TAB PO SCH (22:14)
[2022-04-27] MEDS: DONEPEZIL HCL 10 MG TAB PO SCH (22:14)
[2022-04-27] MEDS: MELATONIN 3 MG TAB PO SCH (22:14)
[2022-04-28 08:32] LABS: BUN Creatinine Ratio 33.7 (10-20); Creatinine Clr Calc Pharmacy 67.4 ml/min; Est GFR (African American) 83.1 ml/min; Est GFR (Non-African American) 71.7 ml/min; Potassium 3.8 mmol/L (3.5-5.1)
[2022-04-28] MEDS: DOXYCYCLINE HYCLATE 100 MG CAP PO SCH ×2 (09:12→20:10)
[2022-04-28] MEDS: GABAPENTIN 100 MG CAP PO SCH ×2 (09:12→20:10)
[2022-04-28] MEDS: ISOSORBIDE MONO EXTENDED REL 30 MG TABCR PO SCH (09:13)
[2022-04-28] MEDS: CLOPIDOGREL BISULFATE 75 MG TAB PO SCH (09:13)
[2022-04-28] MEDS: CITALOPRAM 20 MG TAB PO SCH (09:13)
[2022-04-28] MEDS: METOPROLOL SUCC 50MG EXT REL TAB PO SCH (09:13)
[2022-04-28] MEDS: CEROVITE ADV FORMULA TAB PO SCH (09:14)
[2022-04-28] MEDS: ASPIRIN 81 MG ECTAB PO SCH (09:14)
[2022-04-28] MEDS: ENOXAPARIN INJ 40 MG/0.4 ML SYR SQ SCH (09:14)
[2022-04-28] MEDS: INSULIN ASPART PER UNIT SC SCH ×4 (09:16→20:10)
[2022-04-28] MEDS: LANTUS PER UNIT CHARGE SQ SCH (09:17)
--- NOTE | 2022-04-28 17:03 | Hospitalist Progress Note ---
Date of Service April 28, 2022 Assessment & Plan (1) Encephalopathy: Plan: Suspected acute metabolic encephalopathy H/O Dementia --CT head:No acute intracranial findings --UA: Not suggestive of UTI Blood cultures no growth to date Ammonia level Normal Reorient frequently to minimize delirium Continue PT OT SNF placement as able Acute Bronchitis No overt sepsis COVID, influenza, RSV screen negative CXR:Cardiomegaly with pulmonary vascular congestion. Mild bibasilar atelectasis. Normal procalcitonin Continue doxycycline Chronic diastolic heart failure EF 64%, TTE 2020 Monitor volume status Diuretics if needed CAD S/P CABG Mild aortic stenosis SSS S/P PPM H/O P.Afib Continue aspirin, Plavix, Lipitor, metoprolol Also on Isosorbide Hypertension Hyperlipidemia Continue home medications Colon cancer S/P Surgery, chemotherapy In remission H/O Prostate cancer S/P Radiation In remission DM II HbA1C:8.3 Mar 2022 Hold p.o. medications Continue insulin per protocol Monitor BGs Dementia Vascular Vs Alzheimer's dementia as per records Continue Aricept DVT Px: Lovenox SQ Code Status Full code Disposition SNF when accepted Admission and Anticipated Discharge Date Admission Date: April 26, 2022 Subjective Patient is seen and examined at bedside States feeling well No new complaints cough improved Denies any chest pain, dyspnea, dizziness, nausea, abdominal pain Review of Systems Review of Systems: All systems reviewed & are unremarkable except as noted in Subjective Physical Exam Physical Exam: Physical Exam: Vitals signs as noted above General Appearance:Moderately built and nourished, no apparent distress Head: normocephalic, Atraumatic Eyes: normal inspection, EOMI Neck: supple, Trachea midline Respiratory/Chest: Decreased breath sounds, CTA, No accessory muscle use Cardiovascular: S1, S2, No murmur Abdomen/GI:Soft, Non tender, Bowel sounds present Extremities/Musculoskeletal:normal inspection, Trace edema Neurologic/Psych:AAO, grossly no focal neurological deficits Skin: normal color, warm Results & Data Results & Data ([facility]) Vital Signs (Past 12 Hours) Vital Signs Temp Pulse Pulse Resp BP Pulse Ox O2 Del Method 04/28/22 15:34 36.9 C 65 20 118/70 94 Room Air 04/28/22 08:00 63 04/28/22 15:00 66 04/28/22 11:28 36.6 C 72 18 147/76 H 93 Room Air 04/28/22 09:48 Room Air 04/28/22 07:28 36.5 C 67 18 174/96 H 100 Room Air Laboratory Results [facility] 04/27/22 04/28/22 07:16 07:35 Sodium 144 143 Potassium 3.8 Chloride 107 Carbon Dioxide 26 BUN 32 H Creatinine 0.95 Glucose 116 H Calcium 9.0
[2022-04-28] MEDS: MELATONIN 3 MG TAB PO SCH (20:10)
[2022-04-28] MEDS: ATORVASTATIN 40 MG TAB PO SCH (20:10)
[2022-04-28] MEDS: DONEPEZIL HCL 10 MG TAB PO SCH (20:10)
[2022-04-29] MEDS: CLOPIDOGREL BISULFATE 75 MG TAB PO SCH (08:09)
[2022-04-29] MEDS: CEROVITE ADV FORMULA TAB PO SCH (08:09)
[2022-04-29] MEDS: ISOSORBIDE MONO EXTENDED REL 30 MG TABCR PO SCH (08:09)
[2022-04-29] MEDS: DOXYCYCLINE HYCLATE 100 MG CAP PO SCH ×2 (08:10→20:59)
[2022-04-29] MEDS: CITALOPRAM 20 MG TAB PO SCH (08:10)
[2022-04-29] MEDS: GABAPENTIN 100 MG CAP PO SCH ×2 (08:10→21:04)
[2022-04-29] MEDS: ASPIRIN 81 MG ECTAB PO SCH (08:10)
[2022-04-29] MEDS: METOPROLOL SUCC 50MG EXT REL TAB PO SCH (08:10)
[2022-04-29] MEDS: ENOXAPARIN INJ 40 MG/0.4 ML SYR SQ SCH (08:11)
[2022-04-29] MEDS: LANTUS PER UNIT CHARGE SQ SCH (08:28)
[2022-04-29] MEDS: INSULIN ASPART PER UNIT SC SCH ×4 (08:28→21:00)
[2022-04-29] MEDS: LOSARTAN POTASSIUM 25 MG TAB PO SCH (09:47)
--- NOTE | 2022-04-29 17:32 | Hospitalist Progress Note ---
Date of Service April 29, 2022 Assessment & Plan (1) Encephalopathy: Plan: Suspected acute metabolic encephalopathy H/O Dementia --CT head:No acute intracranial findings --UA: Not suggestive of UTI Blood cultures no growth to date Ammonia level Normal Reorient frequently to minimize delirium Continue PT OT Waiting for rehab placement Acute Bronchitis No overt sepsis COVID, influenza, RSV screen negative CXR:Cardiomegaly with pulmonary vascular congestion. Mild bibasilar atelectasis. Normal procalcitonin Continue doxycycline to complete the course Chronic diastolic heart failure EF 64%, TTE 2020 Monitor volume status Diuretics if needed CAD S/P CABG Mild aortic stenosis SSS S/P PPM H/O P.Afib Continue aspirin, Plavix, Lipitor, metoprolol Also on Isosorbide Hypertension Hyperlipidemia Continue home medications Colon cancer S/P Surgery, chemotherapy In remission H/O Prostate cancer S/P Radiation In remission DM II HbA1C:8.3 Mar 2022 Hold p.o. medications Continue insulin per protocol Monitor BGs Dementia Vascular Vs Alzheimer's dementia as per records Continue Aricept DVT Px: Lovenox SQ Code Status Full code Disposition SNF when accepted Admission and Anticipated Discharge Date Admission Date: April 26, 2022 Subjective Patient is seen and examined at bedside Doing well Sitting in chair during my encounter Waiting for rehab placement Denies any chest pain, dyspnea, dizziness, nausea, abdominal pain Minimal intermittent cough Offers no other complaints Review of Systems Review of Systems: All systems reviewed & are unremarkable except as noted in Subjective Physical Exam Physical Exam: Physical Exam: Vitals signs as noted above General Appearance:Moderately built and nourished, no apparent distress Head: normocephalic, Atraumatic Eyes: normal inspection, EOMI Neck: supple, Trachea midline Respiratory/Chest: Decreased breath sounds, CTA, No accessory muscle use Cardiovascular: S1, S2, No murmur Abdomen/GI:Soft, Non tender, Bowel sounds present Extremities/Musculoskeletal:normal inspection, Trace edema Neurologic/Psych:AAO, grossly no focal neurological deficits Skin: normal color, warm Results & Data Results & Data ([facility]) Vital Signs (Past 12 Hours) Vital Signs Temp Pulse Pulse Resp BP Pulse Ox O2 Del Method 04/29/22 15:16 36.4 C L 70 18 132/75 97 Room Air 04/29/22 11:30 36.3 C L 62 18 117/77 97 Room Air 04/29/22 09:30 Room Air 04/29/22 08:04 36.3 C L 60 19 179/96 H 96 Room Air 04/29/22 06:57 62 04/29/22 06:34 60
[2022-04-29] MEDS: ATORVASTATIN 40 MG TAB PO SCH (20:59)
[2022-04-29] MEDS: DONEPEZIL HCL 10 MG TAB PO SCH (20:59)
[2022-04-29] MEDS: MELATONIN 3 MG TAB PO SCH (21:03)
[2022-04-30 06:54] LABS: BUN Creatinine Ratio 31.4 (10-20); Calcium 9.2 mg/dl (8.5-10.1); Creatinine Clr Calc Pharmacy 62.7 ml/min; Est GFR (African American) 73.6 ml/min; Est GFR (Non-African American) 63.5 ml/min; Potassium 3.9 mmol/L (3.5-5.1)
[2022-04-30] MEDS: DOXYCYCLINE HYCLATE 100 MG CAP PO SCH (08:23)
[2022-04-30] MEDS: METOPROLOL SUCC 50MG EXT REL TAB PO SCH (08:23)
[2022-04-30] MEDS: ASPIRIN 81 MG ECTAB PO SCH (08:24)
[2022-04-30] MEDS: CLOPIDOGREL BISULFATE 75 MG TAB PO SCH (08:24)
[2022-04-30] MEDS: CITALOPRAM 20 MG TAB PO SCH (08:24)
[2022-04-30] MEDS: LOSARTAN POTASSIUM 25 MG TAB PO SCH (08:24)
[2022-04-30] MEDS: CEROVITE ADV FORMULA TAB PO SCH (08:24)
[2022-04-30] MEDS: ISOSORBIDE MONO EXTENDED REL 30 MG TABCR PO SCH (08:24)
[2022-04-30] MEDS: GABAPENTIN 100 MG CAP PO SCH (08:25)
[2022-04-30] MEDS: ENOXAPARIN INJ 40 MG/0.4 ML SYR SQ SCH (08:25)
[2022-04-30] MEDS: INSULIN ASPART PER UNIT SC SCH ×2 (08:27→12:15)
[2022-04-30] MEDS: LANTUS PER UNIT CHARGE SQ SCH (08:28)
--- NOTE | 2022-04-30 12:32 | Hospitalist Progress Note ---
Date of Service April 30, 2022 Assessment & Plan (1) Encephalopathy: Plan: Suspected acute metabolic encephalopathy H/O Dementia --CT head:No acute intracranial findings --UA: Not suggestive of UTI Blood cultures no growth to date Ammonia level Normal Reorient frequently to minimize delirium Continue PT OT:Recommends Rehab Patient/Family prefers to be discharged home with Home Health Acute Bronchitis No overt sepsis COVID, influenza, RSV screen negative CXR:Cardiomegaly with pulmonary vascular congestion. Mild bibasilar atelectasis. Normal procalcitonin Continue doxycycline to complete the course Chronic diastolic heart failure EF 64%, TTE 2020 Monitor volume status Diuretics if needed CAD S/P CABG Mild aortic stenosis SSS S/P PPM H/O P.Afib Continue aspirin, Plavix, Lipitor, metoprolol Also on Isosorbide Hypertension Hyperlipidemia Continue home medications Colon cancer S/P Surgery, chemotherapy In remission H/O Prostate cancer S/P Radiation In remission DM II HbA1C:8.3 Mar 2022 Hold p.o. medications Continue insulin per protocol Monitor BGs Dementia Vascular Vs Alzheimer's dementia as per records Continue Aricept DVT Px: Lovenox SQ Code Status Full code Disposition Home with Home Health Admission and Anticipated Discharge Date Admission Date: April 26, 2022 Subjective Patient is seen and examined at bedside No new complaints Discussed with patient's family over the phone Had PT earlier today Denies any chest pain, dyspnea, dizziness, nausea, abdominal pain Less cough today Review of Systems Review of Systems: All systems reviewed & are unremarkable except as noted in Subjective Physical Exam Physical Exam: Physical Exam: Vitals signs as noted above General Appearance:Moderately built and nourished, no apparent distress Head: normocephalic, Atraumatic Eyes: normal inspection, EOMI Neck: supple, Trachea midline Respiratory/Chest: Decreased breath sounds, CTA, No accessory muscle use Cardiovascular: S1, S2, No murmur Abdomen/GI:Soft, Non tender, Bowel sounds present Extremities/Musculoskeletal:normal inspection, Trace edema Neurologic/Psych:AAO, grossly no focal neurological deficits Skin: normal color, warm Results & Data Results & Data ([facility]) Vital Signs (Past 12 Hours) Vital Signs Temp Pulse Pulse Resp BP BP Pulse Ox 04/30/22 11:17 36.7 C 64 20 123/74 96 04/30/22 06:09 60 04/30/22 08:07 36.4 C L 62 20 153/89 H 97 04/30/22 03:23 36.4 C L 61 18 127/79 96 O2 Del Method 04/30/22 11:17 Room Air 04/30/22 06:09 04/30/22 08:07 Room Air 04/30/22 03:23 Room Air Laboratory Results [facility] 04/30/22 06:00 Sodium 141 Potassium 3.9 Chloride 107 Carbon Dioxide 25 BUN 33 H Creatinine 1.05 Glucose 136 H Calcium 9.2
--- NOTE | 2022-04-30 12:56 | Discharge Summary ---
Date of Service April 30, 2022 Admission HPI Per Admitting Provider History obtained from patient, family, and records. Patient is a fair historian. Medical history significant for chronic diastolic heart failure (EF 64%, TTE 2020), mild aortic stenosis, CAD sp CABG, SSS status post PPM, PAF, hypertension, hyperlipidemia, colon cancer status post surgery/incomplete chemotherapy, prostate cancer status post radiation, DM2 on oral medications, past history DVT, dementia. Last confinement January 2022 for recurrent falls. Patient noted to have junky cough symptoms the last 2 days. Not sure about sick contacts. Patient completed COVID-19 vaccination. Poor appetite. Patient more confused than usual as per . Patient denies chest pain, shortness of breath, abdominal pain. Patient brought to the ER for evaluation. Medical History as above Surgical History : Partial colectomy, cataract surgeries, hip surgeries, right shoulder surgery Family History : Hypertension Personal/Social history : Non-smoker, occasional EtOH intake, retired [employer] employee Admission Exam Per Admitting Provider Physical Exam Physical Exam: GENERAL: Slightly uncomfortable, pleasant, oriented to place no respiratory distress SKIN: Normal color, warm HEENT: Alopecia, [place] palpebral conjunctivae, no ptosis, dry buccal mucosa NECK : Supple, no tenderness CHEST : Decreased breath sounds, expiratory wheezes, no tenderness HEART : RRR, no obvious murmurs ABDOMEN: Some distention, nontender EXTREMITIES : Minimal LE swelling, no LE tenderness, no other conspicuous deformities noted NEUROLOGIC : Coherent, oriented to place, no facial asymmetry, gait and stance not assessed Principal Diagnosis Acute metabolic encephalopathy Acute Bronchitis Hypertension Discharge Data Allergies Allergy/AdvReac Type Severity Reaction Status Date / Time hydrocodone AdvReac Intermediate MAKES PT Verified 04/26/22 01:38 HALLUCINATE meperidine AdvReac Intermediate psych Verified 04/26/22 01:38 complications oxycodone AdvReac Intermediate MAKES PT Verified 04/26/22 01:38 HALLUCINATES Consultations 04/26/22 00:33 ED Decision to Admit Stat Ordered Studies 04/25/22 20:22 CT head/brain wo con Stat Laboratory Results WBC 5.61 K/ul (4.8-10.8) 04/27/22 07:16 RBC 4.77 M/uL (4.63-6.08) 04/27/22 07:16 Hgb 14.0 g/dl (14.0-18.0) 04/27/22 07:16 Hct 42.6 % (40.1-51.0) 04/27/22 07:16 MCV 89.3 fL (80.0-100.0) 04/27/22 07:16 MCH 29.4 pg (25.0-34.0) 04/27/22 07:16 MCHC 32.9 g/dL (32.0-36.0) 04/27/22 07:16 RDW Std Deviation 49.4 fL (36.4-46.3) H 04/27/22 07:16 RDW Coeff of Mini 14.9 % (11.5-14.5) H 04/27/22 07:16 Plt Count 140 K/uL (130-400) 04/27/22 07:16 MPV 10.5 fL (9.4-12.4) 04/27/22 07:16 Immature Gran % (Auto) 0.7 % 04/26/22 05:34 Neut % (Auto) 66.4 % 04/26/22 05:34 Lymph % (Auto) 20.5 % 04/26/22 05:34 [place] % (Auto) 11.4 % 04/26/22 05:34 Eos % (Auto) 0.7 % 04/26/22 05:34 Baso % (Auto) 0.3 % 04/26/22 05:34 Neut # (Auto) 5.01 K/uL (1.4-6.5) 04/26/22 05:34 Lymph # (Auto) 1.54 K/uL (1.2-3.4) 04/26/22 05:34 Adair # (Auto) 0.86 K/uL (0.24-0.82) H 04/26/22 05:34 Eos # (Auto) 0.05 K/uL (0-0.50) 04/26/22 05:34 Baso # (Auto) 0.02 K/uL (0-0.2) 04/26/22 05:34 Immature Gran # (Auto) 0.05 K/uL (0.00-0.02) H 04/26/22 05:34 Absolute Nucleated RBC Cancelled 04/25/22 19:54 Nucleated RBC % (auto) Cancelled 04/25/22 19:54 Neutrophils % (Manual) Cancelled 04/25/22 19:54 Band Neutrophils % Cancelled 04/25/22 19:54 Lymphocytes % (Manual) Cancelled 04/25/22 19:54 Prolymphocyte % Cancelled 04/25/22 19:54 Reactive Lymphs % (Man) Cancelled 04/25/22 19:54 Monocytes % (Manual) Cancelled 04/25/22 19:54 Eosinophils % (Manual) Cancelled 04/25/22 19:54 Basophils % (Manual) Cancelled 04/25/22 19:54 Metamyelocytes % (Man) Cancelled 04/25/22 19:54 Myelocytes % (Man) Cancelled 04/25/22 19:54 Promyelocytes % (Man) Cancelled 04/25/22 19:54 Blast Cells % (Manual) Cancelled 04/25/22 19:54 Plasma Cell % (Manual) Cancelled 04/25/22 19:54 Other Cells % Cancelled 04/25/22 19:54 Nucleated RBC % Cancelled 04/25/22 19:54 Neutrophils # (Manual) Cancelled 04/25/22 19:54 Band Neutrophils # Cancelled 04/25/22 19:54 Total Absolute Neuts Cancelled 04/25/22 19:54 Lymphocytes # (Manual) Cancelled 04/25/22 19:54 Prolymphocyte # Cancelled 04/25/22 19:54 Reactive Lymphs # Cancelled 04/25/22 19:54 Total Abs Lymphocytes Cancelled 04/25/22 19:54 Monocytes # (Manual) Cancelled 04/25/22 19:54 Eosinophils # (Manual) Cancelled 04/25/22 19:54 Basophils # (Manual) Cancelled 04/25/22 19:54 Metamyelocytes # (Man) Cancelled 04/25/22 19:54 Myelocytes # (Manual) Cancelled 04/25/22 19:54 Promyelocytes # (Man) Cancelled 04/25/22 19:54 Blast Cells # (Man) Cancelled 04/25/22 19:54 Plasma Cell # (Manual) Cancelled 04/25/22 19:54 Other Cells # Cancelled 04/25/22 19:54 Nucleated RBCs # (Man) Cancelled 04/25/22 19:54 Hypersegmented Neuts Cancelled 04/25/22 19:54 Hyposegmented Neuts Cancelled 04/25/22 19:54 Hypogranular Neuts Cancelled 04/25/22 19:54 Large Granular Lymphs Cancelled 04/25/22 19:54 # Lrg Granular Lymphs Cancelled 04/25/22 19:54 Hairy Cells Cancelled 04/25/22 19:54 Smudge Cells Cancelled 04/25/22 19:54 Toxic Granulation Cancelled 04/25/22 19:54 Toxic Vacuolation Cancelled 04/25/22 19:54 Dohle Bodies Cancelled 04/25/22 19:54 Nazanin Rods Cancelled 04/25/22 19:54 Platelet Estimate Cancelled 04/25/22 19:54 Hypogranular Platelets Cancelled 04/25/22 19:54 Clumped Platelets Cancelled 04/25/22 19:54 Giant Platelets Cancelled 04/25/22 19:54 Platelet Satelliting Cancelled 04/25/22 19:54 RBC Morphology Cancelled 04/25/22 19:54 Polychromasia Cancelled 04/25/22 19:54 Hypochromasia Cancelled 04/25/22 19:54 Poikilocytosis Cancelled 04/25/22 19:54 Basophilic Stippling Cancelled 04/25/22 19:54 Anisocytosis Cancelled 04/25/22 19:54 Microcytosis Cancelled 04/25/22 19:54 Macrocytosis Cancelled 04/25/22 19:54 Spherocytes Cancelled 04/25/22 19:54 Pappenheimer Bodies Cancelled 04/25/22 19:54 Sickle Cells Cancelled 04/25/22 19:54 Target Cells Cancelled 04/25/22 19:54 Tear Drop Cells Cancelled 04/25/22 19:54 Ovalocytes Cancelled 04/25/22 19:54 Stomatocytes Cancelled 04/25/22 19:54 Bills-Reform Bodies Cancelled 04/25/22 19:54 Echinocytes Cancelled 04/25/22 19:54 Acanthocytes (Spur) Cancelled 04/25/22 19:54 Rouleaux Cancelled 04/25/22 19:54 RBC Agglutinates Cancelled 04/25/22 19:54 Schistocytes Cancelled 04/25/22 19:54 Sezary Cell Cancelled 04/25/22 19:54 ABG pH 7.48 (7.35-7.45) H 04/26/22 00:58 ABG pCO2 31 mmHg (35-46) L 04/26/22 00:58 ABG pO2 74 mmHg (80-95) L 04/26/22 00:58 ABG HCO3 23 mmol/L (19-24) 04/26/22 00:58 ABG O2 Saturation 95.7 % (90-95) H 04/26/22 00:58 ABG Base Excess 0.4 mEq/L (-9-1.8) 04/26/22 00:58 Harish Test POS (Pos) 04/26/22 00:58 Oxygen Given ROOM AIR 04/26/22 00:58 Sodium 141 mmol/L (136-145) 04/30/22 06:00 Potassium 3.9 mmol/L (3.5-5.1) 04/30/22 06:00 Chloride 107 mmol/L (98-107) 04/30/22 06:00 Carbon Dioxide 25 mmol/L (21-32) 04/30/22 06:00 Anion Gap 9 (3-11) 04/30/22 06:00 BUN 33 mg/dl (6-23) H 04/30/22 06:00 Creatinine 1.05 mg/dl (0.6-1.4) 04/30/22 06:00 Est Cr Clr Drug Dosing 62.7 ml/min 04/30/22 06:00 Est GFR ( Amer) 73.6 ml/min 04/30/22 06:00 Est GFR (Non-Af Amer) 63.5 ml/min 04/30/22 06:00 BUN/Creatinine Ratio 31.4 (10-20) H 04/30/22 06:00 Glucose 136 mg/dl (70-99(Fasting)) H 04/30/22 06:00 POC Glucose 158 mg/dl (70-99) H 04/30/22 11:27 Lactate 1.2 mmol/L (0.4-2.0) 04/26/22 00:58 Calcium 9.2 mg/dl (8.5-10.1) 04/30/22 06:00 Magnesium 2.0 mg/dl (1.7-2.4) 04/25/22 19:54 Total Bilirubin 0.6 mg/dl (0.2-1.0) 04/25/22 19:54 AST 19 U/L (13-39) 04/25/22 19:54 ALT 18 U/L (7-52) 04/25/22 19:54 Alkaline Phosphatase 75 U/L (34-104) 04/25/22 19:54 Ammonia 22.0 umol/L (18-72) 04/27/22 07:16 Troponin I High Sens 11.7 pg/ml (0-20) 04/25/22 19:54 B-Natriuretic Peptide 357 pg/ml (0-100) H 04/25/22 23:11 Total Protein 6.2 gm/dl (6.0-8.3) 04/25/22 19:54 Albumin 4.2 gm/dl (3.4-5.0) 04/25/22 19:54 Globulin 2.0 gm/dl (2.5-4.0) L 04/25/22 19:54 Albumin/Globulin Ratio 2.1 (0.9-2) H 04/25/22 19:54 Lipase 29 U/L (11-82) 04/25/22 19:54 Procalcitonin < 0.05 ng/ml (0-0.5) 04/26/22 00:58 TSH 1.618 uIu/ml (0.300-4.500) 04/25/22 19:54 Urine Color Yellow 04/25/22 19:54 Urine Appearance Clear (Clear) 04/25/22 19:54 Urine pH 5.5 (4.5-7.5) 04/25/22 19:54 Ur Specific Leroy 1.044 (1.000-1.030) H 04/25/22 19:54 Urine Protein Negative (Negative) 04/25/22 19:54 Urine Glucose (UA) 3+ (Negative) H 04/25/22 19:54 Urine Ketones Negative (Negative) 04/25/22 19:54 Urine Blood Negative (Negative) 04/25/22 19:54 Urine Nitrite Negative (Negative) 04/25/22 19:54 Urine Bilirubin Negative (Negative) 04/25/22 19:54 Urine Urobilinogen Negative (Negative) 04/25/22 19:54 Ur Leukocyte Esterase Negative (Negative) 04/25/22 19:54 SARS-CoV-2 (PCR) NEGATIVE (Negative) 04/25/22 21:18 Influenza Type A (PCR) Negative (Neg) 04/25/22 21:18 Influenza Type B (PCR) Negative (Neg) 04/25/22 21:18 RSV (RT-PCR) Negative (Neg) 04/25/22 21:18 Blood Parasites ID Cancelled 04/25/22 19:54 Impressions Chest X-Ray 04/25/22 20:22 XR chest 1V portable HISTORY: 87 years-old Male cough acute cough COMPARISON: Chest radiograph 01/17/2000 TECHNIQUE: AP view of the chest FINDINGS: Cardiac silhouette is enlarged. Left subclavian pacer. Pulmonary vascular congestion. No pneumothorax, large pleural effusion or lobar airspace consolidation. Mild bibasilar atelectasis/scarring. Bilateral shoulder arthroplasties. IMPRESSION: 1. Cardiomegaly with pulmonary vascular congestion. 2. Mild bibasilar atelectasis. ACT 112: Negative or not required by law. The above report was generated using voice recognition software. It may contain grammatical, syntax or spelling errors. Electronically signed by: Brenden Donald M.D. 04/25/2022 10:[address] 04/25/22 20:22 CT OF THE HEAD WITHOUT CONTRAST CLINICAL HISTORY: ams COMPARISON STUDY: No previous studies for comparison. CT DOSE: 614.27 mGy.cm TECHNIQUE: Helical axial images of the head were obtained without IV contrast. Automated exposure control was utilized for the study. A dose lowering technique was utilized adhering to the principles of ALARA. FINDINGS: No acute intracranial hemorrhage, midline shift or mass effect is present. The ventricular system is unremarkable. The basal cisterns are patent. No extra-axial collections are present. There are no findings to suggest acute dural sinus thrombosis or acute territorial infarct. No significant calvarial abnormalities are present. Visualized portions of the sinuses and mastoid air cells are clear. IMPRESSION: No acute intracranial findings. ACT 112: Negative or not required by law. Electronically signed by: David Rivera M.D. 04/25/2022 9:04 PM Hospital Course (1) Encephalopathy: Suspected acute metabolic encephalopathy H/O Dementia --CT head:No acute intracranial findings --UA: Not suggestive of UTI Blood cultures no growth to date Ammonia level Normal Reorient frequently to minimize delirium Continue PT OT:Recommends Rehab Patient/Family prefers to be discharged home with Home Health Acute Bronchitis No overt sepsis COVID, influenza, RSV screen negative CXR:Cardiomegaly with pulmonary vascular congestion. Mild bibasilar atelectasis. Normal procalcitonin Continue doxycycline to complete the course Chronic diastolic heart failure EF 64%, TTE 2020 Monitor volume status Diuretics if needed CAD S/P CABG Mild aortic stenosis SSS S/P PPM H/O P.Afib Continue aspirin, Plavix, Lipitor, metoprolol Also on Isosorbide Hypertension Hyperlipidemia Continue home medications BP elevated Started on losartan 12.5 mg daily Colon cancer S/P Surgery, chemotherapy In remission H/O Prostate cancer S/P Radiation In remission DM II HbA1C:8.3 Mar 2022 Hold p.o. medications Continue insulin per protocol Monitor BGs Dementia Vascular Vs Alzheimer's dementia as per records Continue Aricept DVT Px: Lovenox SQ Code Status Full code Disposition Home with Home Health Total Time Total Time Spent Total Time Spent (In Minutes): 46 minutes Discharge Plan Discharge Items Patient Disposition: Home - Home Health Services Reason For Visit: ENCEPHALOPATHY Discharge Diagnosis: Acute metabolic encephalopathy Acute Bronchitis Hypertension Activity: Per Instructions section Exercise/Sports: Gradually increase as tolerated Non-emergency contact: Primary Care Provider Call non-emergency contact if: you have any medication questions, your symptoms worsen and your pain is concerning for you Follow-up/Referrals: Victoria Saldana, [Primary Care Provider] - Diet: Carb Consistent or DM2 Addtl Attending Provider Instructions: Follow-up with your primary care physician Dr. Saldana on 05/05/22 at 11:00 AM as scheduled -- Final blood cultures are pending at the time of discharge. Follow-up with your physician for results --Complete antibiotic course Doxycycline as prescribed. -- Starting losartan 12.5 mg daily for better blood pressure control. Discussed with the physician for further adjustment of medications as needed. Seek immediate medical attention if your symptoms reoccur or worsen Please take all medications as instructed on discharge list below. Please call if you have any questions or problems. You can reach a [facility] hospitalist on duty at [facility] 24 hours a day by calling [phone] Pending Studies at Discharge: No Studies:: Final blood Cultures Stand-Alone Forms: My [facility], Smoking Cessation Medications and DC Order Prescriptions: New doxycycline hyclate 100 mg Capsule 100 mg PO BID Qty: 6 0RF losartan 25 mg Tablet 12.5 mg PO QAM Qty: 30 0RF Continued metformin 500 mg Tablet 500 mg PO BIDM aspirin 81 mg Tablet,Delayed Release (Dr/Ec) 81 mg PO QAM citalopram 20 mg Tablet 20 mg PO QAM meclizine 25 mg Tablet 25 mg PO DAILY PRN (Reason: Dizziness) gabapentin 100 mg Capsule 100 mg PO BID multivitamin with minerals Tablet 1 tab PO QAM omega 8-yog-sec-fish oil [Fish Oil] 1,000 mg (120 mg-180 mg) Capsule 1 cap PO QAM Jardiance 25 mg Tablet 25 mg PO QAM metoprolol succinate 50 mg tablet extended release 24 hr 50 mg PO DAILY donepezil 10 mg tablet 10 mg PO HS atorvastatin 40 mg tablet 40 mg PO QPM isosorbide mononitrate 30 mg tablet extended release 24 hr 30 mg PO DAILY clopidogrel 75 mg tablet 75 mg PO DAILY loperamide 2 mg Tablet 2 mg PO DAILY melatonin 1 mg Tablet 3 mg PO HS Discharge Orders: Discharge Order (Routine); Ordered 04/30/22 Ordered By: Rick Doss Admission Data Admit Date/Time: 04/26/22 02:50 Attending Provider: Rick Doss Admit Provider: Desmond Cool Primary Care Provider: Victoria Saldana Other Providers: Desmond Cool ; [place],[facility] ; [facility] ; [facility] ; [facility]
== END 2022-04-30 13:37 | disposition home health service (06) | DRG 71 ==
LOC: ED 19:41 → 2N 04-26 02:50
DX: Z91.81 History of falling; E78.5 Hyperlipidemia, unspecified; Z95.1 Presence of aortocoronary bypass graft; Z95.0 Presence of cardiac pacemaker; I48.0 Paroxysmal atrial fibrillation; Z79.02 Long term (current) use of antithrombotics/antiplatelets; G30.9 Alzheimer's disease, unspecified; Z86.718 Personal history of other venous thrombosis and embolism; Z88.5 Allergy status to narcotic agent; Z85.038 Personal history of other malignant neoplasm of large intestine; Z85.46 Personal history of malignant neoplasm of prostate; F02.80 Dementia in other diseases classified elsewhere, unspecified severity, without behavioral disturbance, psychotic disturbance, mood disturbance, and anxiety; I11.0 Hypertensive heart disease with heart failure; I35.0 Nonrheumatic aortic (valve) stenosis; I50.32 Chronic diastolic (congestive) heart failure; I25.10 Atherosclerotic heart disease of native coronary artery without angina pectoris; Z86.79 Personal history of other diseases of the circulatory system; Z20.822 Contact with and (suspected) exposure to COVID-19; Z79.84 Long term (current) use of oral hypoglycemic drugs; J20.9 Acute bronchitis, unspecified; Z90.79 Acquired absence of other genital organ(s); I25.2 Old myocardial infarction; Z92.3 Personal history of irradiation; E11.9 Type 2 diabetes mellitus without complications; F01.50 Vascular dementia, unspecified severity, without behavioral disturbance, psychotic disturbance, mood disturbance, and anxiety; G93.41 Metabolic encephalopathy; Z79.899 Other long term (current) drug therapy; Z92.21 Personal history of antineoplastic chemotherapy; Z79.82 Long term (current) use of aspirin

== ENCOUNTER 2023-05-15 20:01 | Inpatient (IN) ==
[2023-05-15] MEDS ORDERED: cefTRIAXone SODIUM 2,000 MG/50 ML BAG IV STA (20:35)
--- NOTE | 2023-05-15 20:40 | Emergency Department Note ---
Impression & Plan Weakness, Fall ED Provider Note NAME: JOAQUIN MARISCAL AGE: 88 SEX: M : 1935 ARRIVES VIA: Ambulance INFORMANT: Patient ED PROVIDER(S): Stevenson Casiano DO CHIEF COMPLAINT: AMS HPI: Patient is an 88-year-old male who presents to the ER following a fall earlier today. Patient was evaluated and taken home by . Patient since going home has been unable to get up and move around. He has been significantly more confused and consequently called for EMS and brought him back in. Per EMS there was no falls. He denies any headache or change in vision. No chest pain but admits to cough and congestion. No runny nose or sore throat. No fevers. Majority of history is obtained from EMS as patient is confused. ADDITIONAL HISTORY OBTAINED: Per HPI Chronic Medical/Social Conditions Affecting Care: Per HPI PAST MEDICAL HISTORY:See Below PAST SURGICAL HISTORY:See Below FAMILY HISTORY:See Below SOCIAL HISTORY:See Below HOME MEDICATIONS:See Below ALLERGIES:See Below VITALS:See Below PHYSICAL EXAMINATION: GENERAL: Sitting up in bed, alert, well appearing, well nourished, no distress, non-toxic HEAD: NC/AT EYE EXAM: normal conjunctiva. PERRL and EOM's grossly intact. OROPHARYNX: no exudate, no erythema, lips, buccal mucosa, and tongue normal and mucous membranes are moist NECK: supple, no nuchal rigidity, no adenopathy, non-tender LUNGS: Clear to auscultation. Normal chest wall mechanics HEART: no murmurs, S1 normal and S2 normal ABDOMEN: abdomen soft, non-tender, normo-active bowel sounds, no masses, no rebound or guarding. BACK: Back is symmetrical on inspection and there is no deformity, no midline tenderness, no CVA tenderness. SKIN: Abrasion on the right lateral woodadr UPPER EXTREMITIES: upper extremities are grossly normal. LOWER EXTREMITIES: No pitting edema. NEURO EXAM: Awake not oriented to year, cranial nerves II-XII intact, normal speech, no weakness of arms, no weakness of legs. No drift. Finger to nose intact. Gross sensation intact. MEDICAL DECISION MAKING: Patient is 88-year-old male brought back in by EMS as he was just discharged following a fall. He is too weak to get up and get around. IV was established blood work was obtained. Labs show no significant leukocytosis or anemia. BMP with chloride of 108. LFTs bilirubin was unremarkable. Pro-Ray was negative. UA was clean. He was covered with Rocephin as he initially was thought to have a possible infection. Chest x-ray was clean. Patient was updated bedside discussed case with the hospitalist for further evaluation. External Records Reviewed: None Consults/Care Managements Discussions: Per MDM Triage Nursing notes reviewed. Limited review of prior medical records performed Vital Signs: reviewed and remarkable for HTN Differential diagnosis: Differential diagnoses includes but is not limited to toxic, metabolic, infectious, traumatic, cardiac, neurologic, hematologic, psychiatric and inflam matory etiologies. ER treatment provided: See below Diagnostics interpreted by me include EKG and cardiac monitoring as listed below: -Cardiac Monitoring: An order was placed for continuous cardiac monitoring. The monitor shows a rate of 70 with sinus rhythm. -ECG: Afib rate of 69 LAD RBBB QTc 462 -Laboratory studies:Interpreted by me as stated above in MDM and shown below. Imaging studies: Xrays: As interpreted by me: Portable AP upright 1 view of the chest shows no focal infiltrate CTs show: none Procedures:none Critical Care: None Past Med/Surg History Medical History CAD (coronary artery disease) Dementia Depression Diabetes mellitus, type 2 Diabetic neuropathy Hearing deficit History of colon cancer 2017--sx/oral chemo History of deep vein thrombosis (DVT) of lower extremity right leg---no blood thinners History of prostate cancer 2013--sx/radiation Hyperlipidemia Hypertension Myocardial Infarction hx of NSTEMI in setting of sepsis July [address] segment elevation myocardial manage medically, occurring in the setting of acute sepsis secondary abdominal abscess following colon resection for colon cancer. Sleep apnea cpap Surgical History H/O colectomy History of bilateral cataract extraction History of colon resection 2017 @ [facility] [place] d/t cancer History of left shoulder replacement History of open reduction and internal fixation (ORIF) procedure right ankle--no hardware History of prostate biopsy malignant History of prostatectomy d/t cancer History of revision of total replacement of right hip joint History of right shoulder replacement History of tooth extraction all teeth History of total left hip replacement History of total right hip replacement S/P cataract surgery S/P hip replacement Family History Denies family history of Heart disease Social History Smoking Status: Unknown if ever smoked Second Hand Exposure: No; Do You Dip or Chew Tobacco: No; Hx Alcohol Use: No Hx Substance Use: No Preferred Language: Indonesian Communication Ability: Effective Control Panel Builder Required: No Beliefs That Will Affect Care: None marital status: Current Living Situation: Spouse Feels Safe at Home: Yes Assistive Devices: Walker Allergies Allergies Allergy/AdvReac Type Severity Reaction Status Date / Time hydrocodone AdvReac Intermediate MAKES PT Verified 05/15/23 22:52 HALLUCINATE meperidine AdvReac Intermediate psych Verified 05/15/23 22:52 complications oxycodone AdvReac Intermediate MAKES PT Verified 05/15/23 22:52 HALLUCINATES Home Meds Home Medications Medication Instructions Recorded Confirmed aspirin 81 mg tablet,delayed 81 mg PO DAILY 05/15/23 05/15/23 release atorvastatin 40 mg tablet 40 mg PO HS 05/15/23 05/15/23 biotin 5 mg tablet 5 mg PO QAM 05/15/23 05/15/23 citalopram 20 mg tablet 20 mg PO QAM 05/15/23 05/15/23 clopidogrel 75 mg tablet 75 mg PO DAILY 05/15/23 05/15/23 diclofenac sodium 1 % topical gel 1 ea topical BID 05/15/23 05/15/23 donepezil 10 mg tablet 10 mg PO DAILY 05/15/23 05/15/23 empagliflozin 25 mg tablet 25 mg PO DAILY 05/15/23 05/15/23 gabapentin 100 mg capsule 100 mg PO BID 05/15/23 05/15/23 isosorbide mononitrate 30 mg 30 mg PO DAILY 05/15/23 05/15/23 tablet,extended release 24 hr loperamide 2 mg capsule 2 mg PO DIRECTED 05/15/23 05/15/23 meclizine 25 mg tablet 25 mg PO DAILY PRN dizzyness 05/15/23 05/15/23 melatonin 10 mg tablet 10 mg PO HS 05/15/23 05/15/23 metformin 500 mg tablet,extended 500 mg PO BID 05/15/23 05/15/23 release 24 hr metoprolol succinate 50 mg 50 mg PO QAM 05/15/23 05/15/23 tablet,extended release 24 hr multivitamin 1 tab PO DAILY 05/15/23 05/15/23 omega-3 fatty acids 1,000 mg 1,000 mg PO DAILY 05/15/23 05/15/23 capsule semaglutide 7 mg tablet (Rybelsus) 7 mg PO QAM 05/15/23 05/15/23 Results & Data (ED) Vital Signs Vital Signs - 24 hr 05/15/23 20:11 05/15/23 20:31 05/15/23 23:00 Temperature 37.3 C Temperature Source Oral Pulse Rate 70 65 Pulse Rate [Finger] 65 Respiratory Rate 22 22 Blood Pressure 157/69 H Blood Pressure [Right Arm] 174/91 H Blood Pressure Mean 98 Blood Pressure Mean [Right Arm] 118 Pulse Oximetry 99 96 Oxygen Delivery Method Room Air Room Air Sepsis Recent Fever Within 48 Hours Yes Sepsis New/Unexplained Change in Mental Status Yes Sepsis Action Taken by Nursing MD Previously Notified 05/16/23 01:00 Temperature Temperature Source Pulse Rate Pulse Rate [Finger] 88 Respiratory Rate 18 Blood Pressure Blood Pressure [Right Arm] 149/83 H Blood Pressure Mean Blood Pressure Mean [Right Arm] 105 Pulse Oximetry 92 Oxygen Delivery Method Room Air Sepsis Recent Fever Within 48 Hours Sepsis New/Unexplained Change in Mental Status Sepsis Action Taken by Nursing Laboratory Data 05/15/23 20:44 05/15/23 20:44 Lab Results 05/15/23 05/15/23 05/15/23 Range/Units 20:26 20:44 20:44 WBC 8.68 (4.8-10.8) K/ul RBC 4.96 (4.70-6.10) M/uL Hgb 14.6 (14.0-18.0) g/dl Hct 44.7 (42.0-52.0) % MCV 90.1 (80.0-100.0) fL MCH 29.4 (25.0-34.0) pg MCHC 32.7 (32.0-36.0) g/dL RDW Std Deviation 48.9 H (36.4-46.3) fL RDW Coeff of Mini 15.1 H (11.5-14.5) % Plt Count 151 (130-400) K/uL MPV 10.5 (9.4-12.4) fL Immature Gran % (Auto) 1.0 % Neut % (Auto) 78.1 % Lymph % (Auto) 10.0 % Durham % (Auto) 10.3 % Eos % (Auto) 0.3 % Baso % (Auto) 0.3 % Neut # (Auto) 6.77 H (1.40-6.50) K/uL Lymph # (Auto) 0.87 L (1.20-3.40) K/uL Durham # (Auto) 0.89 H (0.11-0.59) K/uL Eos # (Auto) 0.03 (0.00-0.50) K/uL Baso # (Auto) 0.03 (0.00-0.20) K/uL Immature Gran # (Auto) 0.09 (0.01-0.20) K/uL Sodium 141 (136-145) mmol/L Potassium 4.1 (3.5-5.1) mmol/L Chloride 108 H (98-107) mmol/L Carbon Dioxide 24 (21-32) mmol/L Anion Gap 9 (3-11) BUN 19 (6-23) mg/dl Creatinine 0.97 (0.6-1.4) mg/dl Est Cr Clr Drug Dosing 65.1 ml/min Est GFR ( Amer) 80.5 ml/min Est GFR (Non-Af Amer) 69.4 ml/min BUN/Creatinine Ratio 19.6 (10-20) Glucose 173 H (70-99(Fasting)) mg/dl POC Glucose 163 H (70-99) mg/dl Lactate (0.4-2.0) mmol/L Calcium 9.5 (8.6-10.3) mg/dl Magnesium 2.1 (1.7-2.4) mg/dl Total Bilirubin 0.6 (0.2-1.0) mg/dl Direct Bilirubin 0.1 (0-0.2) mg/dl AST 18 (13-39) U/L ALT 21 (7-52) U/L Alkaline Phosphatase 98 (34-104) U/L Total Protein 7.1 (6.0-8.3) gm/dl Albumin 4.2 (3.4-5.0) gm/dl Procalcitonin (0-0.5) ng/ml Urine Color Urine Appearance (Clear) Urine pH (4.5-7.5) Ur Specific Calder (1.000-1.030) Urine Protein (Negative) Urine Glucose (UA) (Negative) Urine Ketones (Negative) Urine Blood (Negative) Urine Nitrite (Negative) Urine Bilirubin (Negative) Urine Urobilinogen (Negative) Ur Leukocyte Esterase (Negative) Urine WBC (Auto) (0-5) /hpf Urine RBC (Auto) (0-4) /hpf U Hyaline Cast (Auto) (0-5) /lpf U Epithel Cells (Auto) (0-5) /lpf Urine Bacteria (Auto) (Negative) 05/15/23 05/15/23 05/15/23 Range/Units 20:44 20:44 21:20 WBC (4.8-10.8) K/ul RBC (4.70-6.10) M/uL Hgb (14.0-18.0) g/dl Hct (42.0-52.0) % MCV (80.0-100.0) fL MCH (25.0-34.0) pg MCHC (32.0-36.0) g/dL RDW Std Deviation (36.4-46.3) fL RDW Coeff of Mini (11.5-14.5) % Plt Count (130-400) K/uL MPV (9.4-12.4) fL Immature Gran % (Auto) % Neut % (Auto) % Lymph % (Auto) % Durham % (Auto) % Eos % (Auto) % Baso % (Auto) % Neut # (Auto) (1.40-6.50) K/uL Lymph # (Auto) (1.20-3.40) K/uL Durham # (Auto) (0.11-0.59) K/uL Eos # (Auto) (0.00-0.50) K/uL Baso # (Auto) (0.00-0.20) K/uL Immature Gran # (Auto) (0.01-0.20) K/uL Sodium (136-145) mmol/L Potassium (3.5-5.1) mmol/L Chloride (98-107) mmol/L Carbon Dioxide (21-32) mmol/L Anion Gap (3-11) BUN (6-23) mg/dl Creatinine (0.6-1.4) mg/dl Est Cr Clr Drug Dosing ml/min Est GFR ( Amer) ml/min Est GFR (Non-Af Amer) ml/min BUN/Creatinine Ratio (10-20) Glucose (70-99(Fasting)) mg/dl POC Glucose (70-99) mg/dl Lactate 2.4 H* (0.4-2.0) mmol/L Calcium (8.6-10.3) mg/dl Magnesium (1.7-2.4) mg/dl Total Bilirubin (0.2-1.0) mg/dl Direct Bilirubin (0-0.2) mg/dl AST (13-39) U/L ALT (7-52) U/L Alkaline Phosphatase (34-104) U/L Total Protein (6.0-8.3) gm/dl Albumin (3.4-5.0) gm/dl Procalcitonin < 0.05 (0-0.5) ng/ml Urine Color Yellow Urine Appearance Clear (Clear) Urine pH 7.5 (4.5-7.5) Ur Specific Calder 1.036 H (1.000-1.030) Urine Protein 1+ H (Negative) Urine Glucose (UA) 3+ H (Negative) Urine Ketones Trace H (Negative) Urine Blood Negative (Negative) Urine Nitrite Negative (Negative) Urine Bilirubin Negative (Negative) Urine Urobilinogen Negative (Negative) Ur Leukocyte Esterase Negative (Negative) Urine WBC (Auto) 0 (0-5) /hpf Urine RBC (Auto) 0-4 (0-4) /hpf U Hyaline Cast (Auto) 0 (0-5) /lpf U Epithel Cells (Auto) 0-5 (0-5) /lpf Urine Bacteria (Auto) Negative (Negative) 05/15/23 Range/Units 22:47 WBC (4.8-10.8) K/ul RBC (4.70-6.10) M/uL Hgb (14.0-18.0) g/dl Hct (42.0-52.0) % MCV (80.0-100.0) fL MCH (25.0-34.0) pg MCHC (32.0-36.0) g/dL RDW Std Deviation (36.4-46.3) fL RDW Coeff of Mini (11.5-14.5) % Plt Count (130-400) K/uL MPV (9.4-12.4) fL Immature Gran % (Auto) % Neut % (Auto) % Lymph % (Auto) % Durham % (Auto) % Eos % (Auto) % Baso % (Auto) % Neut # (Auto) (1.40-6.50) K/uL Lymph # (Auto) (1.20-3.40) K/uL Durham # (Auto) (0.11-0.59) K/uL Eos # (Auto) (0.00-0.50) K/uL Baso # (Auto) (0.00-0.20) K/uL Immature Gran # (Auto) (0.01-0.20) K/uL Sodium (136-145) mmol/L Potassium (3.5-5.1) mmol/L Chloride (98-107) mmol/L Carbon Dioxide (21-32) mmol/L Anion Gap (3-11) BUN (6-23) mg/dl Creatinine (0.6-1.4) mg/dl Est Cr Clr Drug Dosing ml/min Est GFR ( Amer) ml/min Est GFR (Non-Af Amer) ml/min BUN/Creatinine Ratio (10-20) Glucose (70-99(Fasting)) mg/dl POC Glucose (70-99) mg/dl Lactate 2.0 (0.4-2.0) mmol/L Calcium (8.6-10.3) mg/dl Magnesium (1.7-2.4) mg/dl Total Bilirubin (0.2-1.0) mg/dl Direct Bilirubin (0-0.2) mg/dl AST (13-39) U/L ALT (7-52) U/L Alkaline Phosphatase (34-104) U/L Total Protein (6.0-8.3) gm/dl Albumin (3.4-5.0) gm/dl Procalcitonin (0-0.5) ng/ml Urine Color Urine Appearance (Clear) Urine pH (4.5-7.5) Ur Specific Calder (1.000-1.030) Urine Protein (Negative) Urine Glucose (UA) (Negative) Urine Ketones (Negative) Urine Blood (Negative) Urine Nitrite (Negative) Urine Bilirubin (Negative) Urine Urobilinogen (Negative) Ur Leukocyte Esterase (Negative) Urine WBC (Auto) (0-5) /hpf Urine RBC (Auto) (0-4) /hpf U Hyaline Cast (Auto) (0-5) /lpf U Epithel Cells (Auto) (0-5) /lpf Urine Bacteria (Auto) (Negative) Administered Medications Discontinued Medications Ceftriaxone Sodium (Rocephin) 2,000 mg in 50 mls @ 100 mls/hr IV NOW STA Stop: 05/15/23 21:04 Last Infusion: 05/15/23 22:06 Dose: 0 mls/hr Documented By: Admin: 05/15/23 21:19 Dose: 100 mls/hr Documented By: BASIM Imaging Data Radiologist's Impression: Chest X-Ray 05/15/23 20:35 XR chest 1V portable HISTORY: 88 years-old Male Sepsis acute sepsis COMPARISON: 04/25/2022 TECHNIQUE: AP view of the chest FINDINGS: Cardiac silhouette is enlarged. Left subclavian pacer. Pulmonary vascular congestion. No pneumothorax, large pleural effusion or lobar airspace consolidation. Mild bibasilar atelectasis/scarring. Bilateral shoulder arthroplasties. IMPRESSION: 1. Cardiomegaly with pulmonary vascular congestion. 2. Mild bibasilar atelectasis. ACT 112: Negative or not required by law. The above report was generated using voice recognition software. It may contain grammatical, syntax or spelling errors. Electronically signed by: Brenden Donald M.D. 05/15/2023 9:29 PM Discharge Plan Visit Data Chief Complaint: Weakness ED Provider: Stevenson Casiano Discharge Problem: Weakness, Fall Forms Stand Alone Forms: My [facility] Prescriptions Prescriptions: No Action multivitamin Tablet 1 tab PO DAILY atorvastatin 40 mg tablet 40 mg PO HS omega-3 fatty acids [Fish Oil Concentrate] 1,000 mg Capsule 1,000 mg PO DAILY loperamide 2 mg Capsule 2 mg PO DIRECTED metoprolol succinate 50 mg tablet extended release 24 hr 50 mg PO QAM donepezil 10 mg tablet 10 mg PO DAILY Rx Instructions: Take with largest meal of day isosorbide mononitrate 30 mg tablet extended release 24 hr 30 mg PO DAILY clopidogrel 75 mg tablet 75 mg PO DAILY aspirin [Aspir-Low] 81 mg Tablet,Delayed Release (Dr/Ec) 81 mg PO DAILY citalopram 20 mg tablet 20 mg PO QAM meclizine 25 mg Tablet 25 mg PO DAILY PRN (Reason: dizzyness) gabapentin 100 mg capsule 100 mg PO BID metformin 500 mg tablet extended release 24 hr 500 mg PO BID biotin 5 mg Tablet 5 mg PO QAM diclofenac sodium 1 % gel 1 ea TOPICAL BID Rx Instructions: Apply to right knee melatonin 10 mg Tablet 10 mg PO HS empagliflozin 25 mg Tablet 25 mg PO DAILY Rybelsus 7 mg tablet 7 mg PO QAM Referrals Referrals: Victoria Saldana DO [Primary Care Provider] -
[2023-05-15 21:09] LABS: Basophils # (auto) 0.03 K/uL (0.00-0.20); Basophils % (auto) 0.3 %; Eosinophils # (auto) 0.03 K/uL (0.00-0.50); Eosinophils % (auto) 0.3 %; Hematocrit (blood only) 44.7 % (42.0-52.0); Hemoglobin 14.6 g/dl (14.0-18.0); Immature Granulocytes # (auto) 0.09 K/uL (0.01-0.20); Lymphocytes # (auto) 0.87 K/uL (1.20-3.40); Mean Corpuscular Hemoglobin 29.4 pg (25.0-34.0); Mean Corpuscular Hgb Conc 32.7 g/dL (32.0-36.0); Mean Corpuscular Volume 90.1 fL (80.0-100.0); Mean Platelet Volume 10.5 fL (9.4-12.4); Monocytes # (auto) 0.89 K/uL (0.11-0.59); Monocytes % (auto) 10.3 %; Neutrophils # (auto) 6.77 K/uL (1.40-6.50); Neutrophils % (auto) 78.1 %; Platelet Count 151 K/uL (130-400); RDW Coefficient of Variation 15.1 % (11.5-14.5); RDW Standard Deviation 48.9 fL (36.4-46.3); Red Blood Count 4.96 M/uL (4.70-6.10); White Blood Count 8.68 K/ul (4.8-10.8)
--- NOTE | 2023-05-15 21:30 | XRay Report ---
XR chest 1V portable HISTORY: 88 years-old Male Sepsis acute sepsis COMPARISON: 04/25/2022 TECHNIQUE: AP view of the chest FINDINGS: Cardiac silhouette is enlarged. Left subclavian pacer. Pulmonary vascular congestion. No pneumothorax , large pleural effusion or lobar airspace consolidation. Mild bibasilar atelectasis/scarring. Bilate ral shoulder arthroplasties. IMPRESSION: 1. Cardiomegaly with pulmonary vascular congestion. 2. Mild bibasilar atelectasis. ACT 112: Negative or not required by law. The above report was generated using voice recognition software. It may contain grammatical, syntax o r spelling errors. Electronically signed by: Brenden Donald M.D. 05/15/2023 9:29 PM
[2023-05-15 21:43] LABS: Albumin Level 4.2 gm/dl (3.4-5.0); BUN Creatinine Ratio 19.6 (10-20); Bilirubin Direct 0.1 mg/dl (0-0.2); Bilirubin,Total 0.6 mg/dl (0.2-1.0); Calcium 9.5 mg/dl (8.6-10.3); Creatinine Clr Calc Pharmacy 65.1 ml/min; Est GFR (African American) 80.5 ml/min; Est GFR (Non-African American) 69.4 ml/min; Magnesium 2.1 mg/dl (1.7-2.4); Potassium 4.1 mmol/L (3.5-5.1); Total Protein 7.1 gm/dl (6.0-8.3)
[2023-05-15 23:15] LABS: Appearance Urine Clear (Clear); Bacteria Urine Automated Negative (Negative); Bilirubin Urine Negative (Negative); Blood Urine Negative (Negative); Cast Urine Automated 0 /lpf (0-5); Color Urine Yellow; Epithelial Cell Urine Auto 0-5 /lpf (0-5); Glucose Urine UA 3+ (Negative); Ketones Urine Trace (Negative); Leukocyte Esterase Urine Negative (Negative); Nitrite Urine Negative (Negative); RBC Urine Automated 0-4 /hpf (0-4); Specific Gravity Urine 1.036 (1.000-1.030); Urobilinogen Urine Negative (Negative); WBC Urine Automated 0 /hpf (0-5); pH Urine 7.5 (4.5-7.5)
[2023-05-15 23:23] LABS: Protein Urine 1+ (Negative)
--- NOTE | 2023-05-16 02:12 | History & Physical Report ---
Date of Service May 16, 2023 Assessment & Plan (1) Fall: Plan: 88-year-old male with past med significant for type 2 diabetes, hyperlipidemia, nontoxic multinodular goiter, paroxysmal atrial tachycardia, history of CAD, history of paroxysmal atrial fibrillation, sinus node dysfunction, hypertension, right bundle branch block, diastolic dysfunction, dilatation of aorta, mixed Alzheimer's and vascular dementia, chronic kidney disease stage III, osteoarthritis, iron deficiency anemia due to chronic blood loss, depression, history of prostate cancer, history of colon cancer s/p partial colectomy, history of sundown syndrome, history of frequent falls who lives at home with his ambulates with a walker was brought in the morning with a fall at home with a cut in the back of his head and imaging studies were okay and was discharged back home but as per after going home he could not get out from the car and was not able to climbs steps into the home when she called back EMS and was brought in here. Fall Weakness Ambulatory dysfunction PT OT Monitor in the hospital Type 2 diabetes Hold home p.o. medications Insulin sliding scale Follow the blood sugars and HbA1c levels Mixed Alzheimer's and vascular dementia Monitor for delirium History of CAD On aspirin and Plavix and statin and Imdur and beta-ruth History of hypertension On Imdur, beta-ruth We will monitor History of paroxysmal atrial fibrillation On beta-ruth and aspirin Anticoagulation not recommended due to anemia and, possible GI bleeding and colon cancer and recurrent falls History of sinus node dysfunction s/p dual-chamber Medtronic pacemaker History of colon cancer S/p partial colectomy History of prostate cancer. History of iron deficiency anemia We will follow labs History of depression On citalopram DVT prophylaxis SCDs for now Heparin subcu if prolonged stay Disposition MedSurg CODE STATUS full code if there is chance of recovery as per my discussion with the History of Present Illness Chief Complaint: Fall, weakness and ambulatory dysfunction Primary Care Provider: Victoria Saldana DO 88-year-old male with past med significant for type 2 diabetes, hyperlipidemia, nontoxic multinodular goiter, paroxysmal atrial tachycardia, history of CAD, history of paroxysmal atrial fibrillation, sinus node dysfunction, hypertension, right bundle branch block, diastolic dysfunction, dilatation of aorta, mixed Alzheimer's and vascular dementia, chronic kidney disease stage III, osteoa rthritis, iron deficiency anemia due to chronic blood loss, depression, history of prostate cancer, history of colon cancer s/p partial colectomy, history of sundown syndrome, history of frequent falls who lives at home with his ambulates with a walker was brought in the morning with a fall at home with a cut in the back of his head and imaging studies were okay and was discharged back home but as per after going home he could not get out from the car and was not able to climbs steps into the home when she called back EMS and was brought in here. As per no recent fevers. No nausea vomiting. No diarrhea or constipation. No complaints of chest pain or abdominal pain. He is regular diet. As per his he gets confused on and off. Currently patient is totally confused and could not get any history from the patient. Past medical history. As mentioned above Past surgical history. Colonoscopy. Dental surgery. EGD. Laparoscopic partial right colectomy. Radiation treatment. Cataract surgery. Right total hip revision surgery. Right shoulder surgery. Bilateral total hip replacements. Social history. . No smoking. Alcohol once in a while. No drug use. Family history. No significant family history in records. Allergies Allergy/AdvReac Type Severity Reaction Status Date / Time hydrocodone AdvReac Intermediate MAKES PT Verified 05/15/23 22:52 HALLUCINATE meperidine AdvReac Intermediate psych Verified 05/15/23 22:52 complications oxycodone AdvReac Intermediate MAKES PT Verified 05/15/23 22:52 HALLUCINATES Home Medications Medication Instructions Recorded Confirmed Type aspirin 81 mg tablet,delayed 81 mg PO DAILY 05/15/23 05/15/23 History release atorvastatin 40 mg tablet 40 mg PO HS 05/15/23 05/15/23 History biotin 5 mg tablet 5 mg PO QAM 05/15/23 05/15/23 History citalopram 20 mg tablet 20 mg PO QAM 05/15/23 05/15/23 History clopidogrel 75 mg tablet 75 mg PO DAILY 05/15/23 05/15/23 History diclofenac sodium 1 % topical gel 1 ea topical BID 05/15/23 05/15/23 History donepezil 10 mg tablet 10 mg PO DAILY 05/15/23 05/15/23 History empagliflozin 25 mg tablet 25 mg PO DAILY 05/15/23 05/15/23 History gabapentin 100 mg capsule 100 mg PO BID 05/15/23 05/15/23 History isosorbide mononitrate 30 mg 30 mg PO DAILY 05/15/23 05/15/23 History tablet,extended release 24 hr loperamide 2 mg capsule 2 mg PO DIRECTED 05/15/23 05/15/23 History meclizine 25 mg tablet 25 mg PO DAILY PRN dizzyness 05/15/23 05/15/23 History melatonin 10 mg tablet 10 mg PO HS 05/15/23 05/15/23 History metformin 500 mg tablet,extended 500 mg PO BID 05/15/23 05/15/23 History release 24 hr metoprolol succinate 50 mg 50 mg PO QAM 05/15/23 05/15/23 History tablet,extended release 24 hr multivitamin 1 tab PO DAILY 05/15/23 05/15/23 History omega-3 fatty acids 1,000 mg 1,000 mg PO DAILY 05/15/23 05/15/23 History capsule semaglutide 7 mg tablet (Rybelsus) 7 mg PO QAM 05/15/23 05/15/23 History Past Med/Surg History Medical History CAD (coronary artery disease) Dementia Depression Diabetes mellitus, type 2 Diabetic neuropathy Hearing deficit History of colon cancer 2017--sx/oral chemo History of deep vein thrombosis (DVT) of lower extremity right leg---no blood thinners History of prostate cancer 2013--sx/radiation Hyperlipidemia Hypertension Myocardial Infarction hx of NSTEMI in setting of sepsis July [address] segment elevation myocardial manage medically, occurring in the setting of acute sepsis secondary abdominal abscess following colon resection for colon cancer. Sleep apnea cpap Surgical History H/O colectomy History of bilateral cataract extraction [place] [facility] [place] History of left shoulder replacement History of open reduction and internal fixation (ORIF) procedure right ankle--no hardware History of prostate biopsy malignant History of prostatectomy d/t cancer History of revision of total replacement of right hip joint History of right shoulder replacement History of tooth extraction all teeth History of total left hip replacement History of total right hip replacement S/P cataract surgery S/P hip replacement Family History Denies family history of Heart disease Social History Smoking Status: Unknown if ever smoked Second Hand Exposure: No; Do You Dip or Chew Tobacco: No; Hx Alcohol Use: No Hx Substance Use: No Preferred Language: Bulgarian Communication Ability: Effective Environmental Journalist Required: No Beliefs That Will Affect Care: None marital status: Current Living Situation: Spouse Feels Safe at Home: Yes Assistive Devices: Walker Review of Systems Review of Systems: Unobtainable due to cognitive status Physical Exam Physical Exam: General- confused. Not in distress Head- atraumatic Eyes- PERRL. ENT- oropharynx clear Neck- supple, no JVD. Lungs- clear to auscultation . No wheezing or crackles. Heart- regular rhythm; no murmur, no gallop. Abdomen- normal bowel sounds, soft, nontender, no distension. Extremities- no pretibial edema, no erythema seen. Neuro- alert, awake, confused. ; PERRL, no facial palsy; no dysarthria; moves extremities. not obeying commands. Skin- warm & dry Results & Data Results & Data Vital Signs (Past 12 Hours) Vital Signs Temp Pulse Pulse Resp BP BP Pulse Ox 05/16/23 01:00 88 18 149/83 H 92 05/15/23 23:00 65 22 174/91 H 96 05/15/23 20:31 65 05/15/23 20:11 37.3 C 70 22 157/69 H 99 O2 Del Method 05/16/23 01:00 Room Air 05/15/23 23:00 Room Air 05/15/23 20:31 05/15/23 20:11 Room Air Diagnostic Findings Laboratory Results WBC 8.68 K/ul (4.8-10.8) 05/15/23 20:44 RBC 4.96 M/uL (4.70-6.10) 05/15/23 20:44 Hgb 14.6 g/dl (14.0-18.0) 05/15/23 20:44 Hct 44.7 % (42.0-52.0) 05/15/23 20:44 MCV 90.1 fL (80.0-100.0) 05/15/23 20:44 MCH 29.4 pg (25.0-34.0) 05/15/23 20:44 MCHC 32.7 g/dL (32.0-36.0) 05/15/23 20:44 RDW Std Deviation 48.9 fL (36.4-46.3) H 05/15/23 20:44 RDW Coeff of Mini 15.1 % (11.5-14.5) H 05/15/23 20:44 Plt Count 151 K/uL (130-400) 05/15/23 20:44 MPV 10.5 fL (9.4-12.4) 05/15/23 20:44 Immature Gran % (Auto) 1.0 % 05/15/23 20:44 Neut % (Auto) 78.1 % 05/15/23 20:44 Lymph % (Auto) 10.0 % 05/15/23 20:44 [place] % (Auto) 10.3 % 05/15/23 20:44 Eos % (Auto) 0.3 % 05/15/23 20:44 Baso % (Auto) 0.3 % 05/15/23 20:44 Neut # (Auto) 6.77 K/uL (1.40-6.50) H 05/15/23 20:44 Lymph # (Auto) 0.87 K/uL (1.20-3.40) L 05/15/23 20:44 Garland # (Auto) 0.89 K/uL (0.11-0.59) H 05/15/23 20:44 Eos # (Auto) 0.03 K/uL (0.00-0.50) 05/15/23 20:44 Baso # (Auto) 0.03 K/uL (0.00-0.20) 05/15/23 20:44 Immature Gran # (Auto) 0.09 K/uL (0.01-0.20) 05/15/23 20:44 Sodium 141 mmol/L (136-145) 05/15/23 20:44 Potassium 4.1 mmol/L (3.5-5.1) 05/15/23 20:44 Chloride 108 mmol/L (98-107) H 05/15/23 20:44 Carbon Dioxide 24 mmol/L (21-32) 05/15/23 20:44 Anion Gap 9 (3-11) 05/15/23 20:44 BUN 19 mg/dl (6-23) 05/15/23 20:44 Creatinine 0.97 mg/dl (0.6-1.4) 05/15/23 20:44 Est Cr Clr Drug Dosing 65.1 ml/min 05/15/23 20:44 Est GFR ( Amer) 80.5 ml/min 05/15/23 20:44 Est GFR (Non-Af Amer) 69.4 ml/min 05/15/23 20:44 BUN/Creatinine Ratio 19.6 (10-20) 05/15/23 20:44 Glucose 173 mg/dl (70-99(Fasting)) H 05/15/23 20:44 POC Glucose 163 mg/dl (70-99) H 05/15/23 20:26 Lactate 2.0 mmol/L (0.4-2.0) 05/15/23 22:47 Calcium 9.5 mg/dl (8.6-10.3) 05/15/23 20:44 Magnesium 2.1 mg/dl (1.7-2.4) 05/15/23 20:44 Total Bilirubin 0.6 mg/dl (0.2-1.0) 05/15/23 20:44 Direct Bilirubin 0.1 mg/dl (0-0.2) 05/15/23 20:44 AST 18 U/L (13-39) 05/15/23 20:44 ALT 21 U/L (7-52) 05/15/23 20:44 Alkaline Phosphatase 98 U/L (34-104) 05/15/23 20:44 Total Protein 7.1 gm/dl (6.0-8.3) 05/15/23 20:44 Albumin 4.2 gm/dl (3.4-5.0) 05/15/23 20:44 Procalcitonin < 0.05 ng/ml (0-0.5) 05/15/23 20:44 Urine Color Yellow 05/15/23 21:20 Urine Appearance Clear (Clear) 05/15/23 21:20 Urine pH 7.5 (4.5-7.5) 05/15/23 21:20 Ur Specific Dexter 1.036 (1.000-1.030) H 05/15/23 21:20 Urine Protein 1+ (Negative) H 05/15/23 21:20 Urine Glucose (UA) 3+ (Negative) H 05/15/23 21:20 Urine Ketones Trace (Negative) H 05/15/23 21:20 Urine Blood Negative (Negative) 05/15/23 21:20 Urine Nitrite Negative (Negative) 05/15/23 21:20 Urine Bilirubin Negative (Negative) 05/15/23 21:20 Urine Urobilinogen Negative (Negative) 05/15/23 21:20 Ur Leukocyte Esterase Negative (Negative) 05/15/23 21:20 Urine WBC (Auto) 0 /hpf (0-5) 05/15/23 21:20 Urine RBC (Auto) 0-4 /hpf (0-4) 05/15/23 21:20 U Hyaline Cast (Auto) 0 /lpf (0-5) 05/15/23 21:20 U Epithel Cells (Auto) 0-5 /lpf (0-5) 05/15/23 21:20 Urine Bacteria (Auto) Negative (Negative) 05/15/23 21:20 Impressions Chest X-Ray 05/15/23 20:35 XR chest 1V portable HISTORY: 88 years-old Male Sepsis acute sepsis COMPARISON: 04/25/2022 TECHNIQUE: AP view of the chest FINDINGS: Cardiac silhouette is enlarged. Left subclavian pacer. Pulmonary vascular congestion. No pneumothorax, large pleural effusion or lobar airspace consolidation. Mild bibasilar atelectasis/scarring. Bilateral shoulder ar throplasties. IMPRESSION: 1. Cardiomegaly with pulmonary vascular congestion. 2. Mild bibasilar atelectasis. ACT 112: Negative or not required by law. The above report was generated using voice recognition software. It may contain grammatical, syntax or spelling errors. Electronically signed by: Brenden Donald M.D. 05/15/2023 9:29 PM ECG Additional Comments: A-fib with occasional ventricular paced complexes rate of 69. Left axis deviation. Right bundle branch block. Code Status & VTE Plan VTE Prophylaxis Plan VTE Prophylaxis will be ordered: Yes
[2023-05-16] MEDS ORDERED: GLUCOSE 10 TAB/TUBE PO PRN (05:01)
[2023-05-16] MEDS ORDERED: ACETAMINOPHEN 325 MG TAB PO PRN (05:01)
[2023-05-16] MEDS ORDERED: DEXTROSE 50% 50 ML SYRINGE IV PRN (05:01)
[2023-05-16] MEDS ORDERED: SODIUM CHLORIDE 0.9% 1,000 ML IV SCH (05:01)
[2023-05-16] MEDS ORDERED: POLYETHYLENE (MIRALAX) 17 GM PACK PO PRN (05:01)
[2023-05-16] MEDS ORDERED: MECLIZINE HCL 25 MG TAB PO PRN (05:01)
[2023-05-16] MEDS ORDERED: GLUCAGON FOR INJ 1 MG VIAL SQ PRN (05:01)
[2023-05-16] MEDS ORDERED: CARBOHYDRATES FOR HYPOGLYCEMIA PO PRN (05:01)
[2023-05-16] MEDS ORDERED: GLUCOSE 40% GEL 15 GM TUBE PO PRN (05:01)
[2023-05-16 07:30] LABS: Basophils # (auto) 0.02 K/uL (0.00-0.20); Basophils % (auto) 0.2 %; Eosinophils # (auto) 0.01 K/uL (0.00-0.50); Eosinophils % (auto) 0.1 %; Hematocrit (blood only) 44.8 % (42.0-52.0); Hemoglobin 14.6 g/dl (14.0-18.0); Immature Granulocytes # (auto) 0.11 K/uL (0.01-0.20); Immature Granulocytes % (auto) 1.3 %; Lymphocytes # (auto) 1.23 K/uL (1.20-3.40); Lymphocytes % (auto) 14.9 %; Mean Corpuscular Hemoglobin 29.4 pg (25.0-34.0); Mean Corpuscular Hgb Conc 32.6 g/dL (32.0-36.0); Mean Corpuscular Volume 90.1 fL (80.0-100.0); Mean Platelet Volume 10.4 fL (9.4-12.4); Monocytes # (auto) 1.15 K/uL (0.11-0.59); Monocytes % (auto) 13.9 %; Neutrophils # (auto) 5.73 K/uL (1.40-6.50); Neutrophils % (auto) 69.6 %; Platelet Count 142 K/uL (130-400); RDW Coefficient of Variation 15.2 % (11.5-14.5); Red Blood Count 4.97 M/uL (4.70-6.10); White Blood Count 8.25 K/ul (4.8-10.8)
[2023-05-16 07:35] LABS: Calcium 9.1 mg/dl (8.6-10.3); Creatinine Clr Calc Pharmacy 63.1 ml/min; Est GFR (African American) 77.5 ml/min; Est GFR (Non-African American) 66.9 ml/min; Magnesium 2.1 mg/dl (1.7-2.4); Potassium 4.2 mmol/L (3.5-5.1)
--- NOTE | 2023-05-16 07:46 | Electrocardiogram Report ---
Test Reason : Blood Pressure : / mmHG Vent. Rate : 069 BPM Atrial Rate : 000 BPM P-R Int : 000 ms QRS Dur : 138 ms QT Int : 432 ms P-R-T Axes : 000 -63 -38 degrees QTc Int : 462 ms Atrial fibrillation with occasional ventricular-paced complexes Left axis deviation Right bundle branch block T wave abnormality, consider inferolateral ischemia Abnormal ECG When compared with ECG of 25-APR-2022 19:47, Electronic ventricular pacemaker has replaced Atrial flutter Confirmed by Skuhdev Armenta ([id number]) on 05/16/2023 7:45:58 AM Referred By: REFERRED SELF Confirmed By:Nnamdi Armenta
[2023-05-16 07:57] LABS: Estimated Average Glucose 200 mg/dl; Hemoglobin A1C 8.6 % (4.5-5.6)
[2023-05-16] MEDS ORDERED: NON-FORMULARY MEDICATION (Biotin 5 mg Tablet) PO SCH (09:00)
[2023-05-16] MEDS: ASPIRIN 81 MG ECTAB PO SCH (09:23)
[2023-05-16] MEDS: DICLOFENAC SOD 1% GEL 100 GM TUBE EXT SCH ×2 (09:24→19:49)
[2023-05-16] MEDS: CLOPIDOGREL BISULFATE 75 MG TAB PO SCH (09:24)
[2023-05-16] MEDS: CITALOPRAM 20 MG TAB PO SCH (09:24)
[2023-05-16] MEDS: METOPROLOL SUCC 50MG EXT REL TAB PO SCH (09:25)
[2023-05-16] MEDS: DONEPEZIL HCL 10 MG TAB PO SCH (09:25)
[2023-05-16] MEDS: ISOSORBIDE MONO EXTENDED REL 30 MG TABCR PO SCH (09:25)
[2023-05-16] MEDS: MULTIVITAMIN TAB PO SCH (09:25)
[2023-05-16] MEDS: GABAPENTIN 100 MG CAP PO SCH ×2 (09:25→19:48)
[2023-05-16] MEDS: INSULIN ASPART PER UNIT CHARGE SC SCH ×4 (10:14→20:58)
--- NOTE | 2023-05-16 12:40 | Communication Note ---
Date of Service: May 16, 2023 Patient seen and examined at bedside. He is lying on the bed comfortably; not in distress. Admitted for fall and ambulatory dysfunction Infectious work-up negative so far PT OT assessment pending
[2023-05-16 13:12] LABS: A calco-baum cmplx NotReported Not Detected (NotDetected); Bact fragilis Not Reported Not Detected (NotDetected); C auris Not Reported Not Detected (NotDetected); Calbicans Not Reported Not Detected (NotDetected); Candida glabrata Not Reported Not Detected (NotDetected); Candida krusei Not Reported Not Detected (NotDetected); Cneoformans/gatti Not Reported Not Detected (NotDetected); Cparapsilosis Not Reported Not Detected (NotDetected); E cloacae compx Not Reported Not Detected (NotDetected); Efaecalis Not Reported Not Detected (NotDetected); Efaecium Not Reported Not Detected (NotDetected); Enterobacterales Not Reported Not Detected (NotDetected); Escherichia coli Not Reported Not Detected (NotDetected); H influenzae Not Reported Not Detected (NotDetected); K aerogenes Not Reported Not Detected (NotDetected); Koxytoca Not Reported Not Detected (NotDetected); Kpneumoniae grp Not Reported Not Detected (NotDetected); Lmonocyt Not Reported Not Detected (NotDetected); N meningitidis Not Reported Not Detected (NotDetected); P aeruginosa Not Reported Not Detected (NotDetected); Proteus spp Not Reported Not Detected (NotDetected); Salmonella spp Not Reported Not Detected (NotDetected); Smarcescens Not Reported Not Detected (NotDetected); Staph lugdunensis Not Reported Not Detected (NotDetected); Staph spp. Not Reported DETECTED (NotDetected); Staphaureus Not Reported DETECTED (NotDetected); Staphepi Not Reported Not Detected (NotDetected); Staphylococcus spp. DETECTED (NotDetected); Stenmaltophilia Not Reported Not Detected (NotDetected); Strep agal(GrpB) Not Reported Not Detected (NotDetected); Strep pneum Not Reported Not Detected (NotDetected); Strep pyog (GrpA) Not Reported Not Detected (NotDetected); Strep spp Not Reported Not Detected (NotDetected)
[2023-05-16 13:17] LABS: mecAC+MREJ Resistant Gene MRSA DETECTED (NotDetected)
[2023-05-16] MEDS ORDERED: VANCOMYCIN CONSULT ACTIVE PRN (13:19)
[2023-05-16] MEDS ORDERED: VANCOMYCIN HCL 2,500 MG in SODIUM CHLORIDE 0.9% 500 ML IV ONE (13:30)
--- NOTE | 2023-05-16 13:38 | Communication Note ---
Date of Service: May 16, 2023 BioFire positive for MRSA Patient reevaluated again; his spouse at bedside. She reports that he sustained a fall a week ago as well. Appears to have bruise over the dorsal aspect of right hand. Ordered vancomycin. Transthoracic echocardiogram ordered; patient has history of pacemaker. Transfer to telemetry Updated at bedside. Answered questions/ queries. I also offered to update any other family members; she declined at this time.
--- NOTE | 2023-05-16 14:57 | Pharmacy Report ---
Pharmacy PK ABX Note - Date of Service May 16, 2023 - Assessment and Plan Assessment * 88 year old M receiving vancomycin for treatment of MRSA bacteremia. * Pertinent microbiologic data includes: 1 of 2 blood cultures from 05/15 growing GPC (BCID2 = MRSA) * PMH: diabetes, CKD III, b/l hip and shoulder replacements, pacemaker * SCr at/near baseline Plan Vancomycin * Loading dose: 2500 mg IV x 1 * Maintenance dose: 1750 mg IV every 24 hours * Picked slightly more aggressive regimen 2nd indication * Regimen is predicted to achieve target AUC/HARISH of 400-600 mg/L.hr * Random level ordered for: 10 AM Pharmacy will continue to follow and will adjust dose/frequency as necessary. Thank you. Pharmacy has transitioned to AUC monitoring for vancomycin. AUC/HARISH is the preferred PK/PD target and is associated with decreased risk of nephrotoxicity compared to traditional trough targets.
[2023-05-16] MEDS: ATORVASTATIN 40 MG TAB PO SCH (19:48)
[2023-05-16] MEDS: MELATONIN 3 MG TAB PO SCH (20:58)
[2023-05-17] MEDS ORDERED: VANCOMYCIN HCL 1,750 MG in SODIUM CHLORIDE 0.9% 500 ML IV ONE
[2023-05-17 06:31] LABS: BUN Creatinine Ratio 29.7 (10-20); Calcium 8.3 mg/dl (8.6-10.3); Creatinine Clr Calc Pharmacy 68.8 ml/min; Est GFR (African American) 86.9 ml/min; Potassium 4.2 mmol/L (3.5-5.1)
[2023-05-17 06:52] LABS: Acanthocytes 1+; Basophils # (auto) 0.04 K/uL (0.00-0.20); Basophils % (auto) 0.5 %; Eosinophils # (auto) 0.02 K/uL (0.00-0.50); Eosinophils % (auto) 0.3 %; Hematocrit (blood only) 42.5 % (42.0-52.0); Hemoglobin 13.5 g/dl (14.0-18.0); Immature Granulocytes # (auto) 0.06 K/uL (0.01-0.20); Immature Granulocytes % (auto) 0.8 %; Lymphocytes # (auto) 1.68 K/uL (1.20-3.40); Lymphocytes % (auto) 21.5 %; Mean Corpuscular Hemoglobin 29.4 pg (25.0-34.0); Mean Corpuscular Hgb Conc 31.8 g/dL (32.0-36.0); Mean Corpuscular Volume 92.6 fL (80.0-100.0); Mean Platelet Volume 10.9 fL (9.4-12.4); Monocytes # (auto) 1.23 K/uL (0.11-0.59); Monocytes % (auto) 15.7 %; Neutrophils # (auto) 4.78 K/uL (1.40-6.50); Neutrophils % (auto) 61.2 %; Ovalocytes 1+; Platelet Count 121 K/uL (130-400); Polychromasia 1+; RDW Coefficient of Variation 15.4 % (11.5-14.5); RDW Standard Deviation 52.2 fL (36.4-46.3); Red Blood Count 4.59 M/uL (4.70-6.10); White Blood Count 7.81 K/ul (4.8-10.8)
[2023-05-17] MEDS: INSULIN ASPART PER UNIT CHARGE SC SCH ×4 (08:33→21:05)
[2023-05-17] MEDS: DICLOFENAC SOD 1% GEL 100 GM TUBE EXT SCH ×2 (08:34→20:52)
[2023-05-17] MEDS: ISOSORBIDE MONO EXTENDED REL 30 MG TABCR PO SCH (08:35)
[2023-05-17] MEDS: ASPIRIN 81 MG ECTAB PO SCH (08:35)
[2023-05-17] MEDS: DONEPEZIL HCL 10 MG TAB PO SCH (08:35)
[2023-05-17] MEDS: MULTIVITAMIN TAB PO SCH (08:35)
[2023-05-17] MEDS: CLOPIDOGREL BISULFATE 75 MG TAB PO SCH (08:35)
[2023-05-17] MEDS: GABAPENTIN 100 MG CAP PO SCH ×2 (08:35→20:51)
[2023-05-17] MEDS: METOPROLOL SUCC 50MG EXT REL TAB PO SCH (08:35)
[2023-05-17] MEDS: CITALOPRAM 20 MG TAB PO SCH (08:36)
--- NOTE | 2023-05-17 13:12 | Hospitalist Progress Note ---
Date of Service May 17, 2023 Assessment & Plan (1) Fall: Plan: 88-year-old male with past med significant for type 2 diabetes, hyperlipidemia, nontoxic multinodular goiter, paroxysmal atrial tachycardia, history of CAD, history of paroxysmal atrial fibrillation, sinus node dysfunction, hypertension, right bundle branch block, diastolic dysfunction, dilatation of aorta, mixed Alzheimer's and vascular dementia, chronic kidney disease stage III, osteoarthritis, iron deficiency anemia due to chronic blood loss, depression, history of prostate cancer, history of colon cancer s/p partial colectomy, history of sundown syndrome, history of frequent falls who lives at home with his ambulates with a walker was brought in the morning with a fall at home with a cut in the back of his head and imaging studies were okay and was discharged back home but as per after going home he could not get out from the car and was not able to climbs steps into the home when she called back EMS and was brought in here. MRSA bacteremia Fall Weakness Ambulatory dysfunction Patient with multiple falls prior to admission. Had a fall a week prior to admission where he injured his right hand. Blood culture 1 of 4 growing Staphylococcus; PCR positive for MRSA Has history of pacemaker. Transthoracic echocardiogram done; no evidence of vegetation. Started on vancomycin. Trough goal of 15-20. Suspect that his bacteremia started from bruises that he suffered from the falls. More specifically from the wound on his right hand Repeat blood culture tomorrow a.m. Infectious disease consulted Wound care consult PT OT alicia Type 2 diabetes Hold home p.o. medications Insulin sliding scale Mixed Alzheimer's and vascular dementia Monitor for delirium History of CAD On aspirin and Plavix and statin and Imdur and beta-ruth History of hypertension On Imdur, beta-ruth We will monitor History of paroxysmal atrial fibrillation On beta-ruth and aspirin Anticoagulation not recommended due to anemia and, possible GI bleeding and colon cancer and recurrent falls History of sinus node dysfunction s/p dual-chamber Medtronic pacemaker History of colon cancer S/p partial colectomy History of prostate cancer. History of depression On citalopram DVT prophylaxis Heparin Disposition telemetry CODE STATUS full code if there is chance of recovery Time spent evaluating patient, direct bedside care, chart review, placing orders, interpretation of diagnostic studies, discussion with consultants, patient, and family members, as well as other required patient management activities is 60 minutes Please note the above document was generated using voice recognition software. It may contain grammatical, syntax or spelling errors. Any formal questions or concerns about the content, text or information contained within the body of this dictation should be directly addressed to the provider for clarification Admission and Anticipated Discharge Date Admission Date: May 16, 2023 Subjective Seen and examined at bedside. He reports that he is feeling better compared to yesterday. Worked with OT; not able to get out of bed Review of Systems Review of Systems: All systems reviewed & are unremarkable except as noted in Subjective Physical Exam Physical Exam: Constitutional: Alert, oriented to self and person Respiratory: Bilateral vesicular breath sound. Cardiovascular: RRR, no murmur, no edema Vessels: no JVD or carotid bruit Chest: normal inspection of chest Abdomen: normal bowel sounds, soft, nontender, no hepatosplenomegaly Musculoskeletal: Bruise present over dorsal aspect of right hand along with multiple bruises in bilateral lower extremity. Skin: no rashes, warm and dry normal turgor Neurologic: PERRL, EOMI, accommodation nl, no face palsy, no dysarthria CN's II- XI intact bilaterally and moves all extremities Psychiatric: Alert, oriented to self and person Results & Data Results & Data Vital Signs (Past 12 Hours) Vital Signs Temp Pulse Pulse Resp BP Pulse Ox O2 Del Method 05/17/23 12:15 36.5 C 60 18 117/74 94 Room Air 05/17/23 07:45 36.5 C 60 19 129/75 93 Room Air 05/17/23 03:25 36.4 C L 67 18 125/73 97 BiPAP 05/17/23 02:34 60 23 95 FiO2 05/17/23 12:15 05/17/23 07:45 05/17/23 03:25 05/17/23 02:34 30 Laboratory Results Laboratory Results WBC 7.81 K/ul (4.8-10.8) 05/17/23 05:32 RBC 4.59 M/uL (4.70-6.10) L 05/17/23 05:32 Hgb 13.5 g/dl (14.0-18.0) L 05/17/23 05:32 Hct 42.5 % (42.0-52.0) 05/17/23 05:32 MCV 92.6 fL (80.0-100.0) 05/17/23 05:32 MCH 29.4 pg (25.0-34.0) 05/17/23 05:32 MCHC 31.8 g/dL (32.0-36.0) L 05/17/23 05:32 RDW Std Deviation 52.2 fL (36.4-46.3) H 05/17/23 05:32 RDW Coeff of Mini 15.4 % (11.5-14.5) H 05/17/23 05:32 Plt Count 121 K/uL (130-400) L 05/17/23 05:32 MPV 10.9 fL (9.4-12.4) 05/17/23 05:32 Immature Gran % (Auto) 0.8 % 05/17/23 05:32 Neut % (Auto) 61.2 % 05/17/23 05:32 Lymph % (Auto) 21.5 % 05/17/23 05:32 [place]ulloch % (Auto) 15.7 % 05/17/23 05:32 Eos % (Auto) 0.3 % 05/17/23 05:32 Baso % (Auto) 0.5 % 05/17/23 05:32 Neut # (Auto) 4.78 K/uL (1.40-6.50) 05/17/23 05:32 Lymph # (Auto) 1.68 K/uL (1.20-3.40) 05/17/23 05:32 [place]ulloch # (Auto) 1.23 K/uL (0.11-0.59) H 05/17/23 05:32 Eos # (Auto) 0.02 K/uL (0.00-0.50) 05/17/23 05:32 Baso # (Auto) 0.04 K/uL (0.00-0.20) 05/17/23 05:32 Immature Gran # (Auto) 0.06 K/uL (0.01-0.20) 05/17/23 05:32 Polychromasia 1+ 05/17/23 05:32 Ovalocytes 1+ 05/17/23 05:32 Acanthocytes (Spur) 1+ 05/17/23 05:32 Sodium 141 mmol/L (136-145) 05/17/23 05:32 Potassium 4.2 mmol/L (3.5-5.1) 05/17/23 05:32 Chloride 110 mmol/L (98-107) H 05/17/23 05:32 Carbon Dioxide 20 mmol/L (21-32) L 05/17/23 05:32 Anion Gap 11 (3-11) 05/17/23 05:32 BUN 27 mg/dl (6-23) H 05/17/23 05:32 Creatinine 0.91 mg/dl (0.6-1.4) 05/17/23 05:32 Est Cr Clr Drug Dosing 68.8 ml/min 05/17/23 05:32 Est GFR ( Amer) 86.9 ml/min 05/17/23 05:32 Est GFR (Non-Af Amer) 75.0 ml/min 05/17/23 05:32 BUN/Creatinine Ratio 29.7 (10-20) H 05/17/23 05:32 Glucose 99 mg/dl (70-99(Fasting)) 05/17/23 05:32 POC Glucose 173 mg/dl (70-99) H 05/17/23 11:28 Estimat Average Glucose 200 mg/dl 05/16/23 06:53 Hemoglobin A1c 8.6 % (4.5-5.6) H 05/16/23 06:53 Lactate 2.0 mmol/L (0.4-2.0) 05/15/23 22:47 Calcium 8.3 mg/dl (8.6-10.3) L 05/17/23 05:32 Magnesium 2.1 mg/dl (1.7-2.4) 05/16/23 06:53 Total Bilirubin 0.6 mg/dl (0.2-1.0) 05/15/23 20:44 Direct Bilirubin 0.1 mg/dl (0-0.2) 05/15/23 20:44 AST 18 U/L (13-39) 05/15/23 20:44 ALT 21 U/L (7-52) 05/15/23 20:44 Alkaline Phosphatase 98 U/L (34-104) 05/15/23 20:44 Total Protein 7.1 gm/dl (6.0-8.3) 05/15/23 20:44 Albumin 4.2 gm/dl (3.4-5.0) 05/15/23 20:44 Procalcitonin < 0.05 ng/ml (0-0.5) 05/15/23 20:44 Urine Color Yellow 05/15/23 21:20 Urine Appearance Clear (Clear) 05/15/23 21:20 Urine pH 7.5 (4.5-7.5) 05/15/23 21:20 Ur Specific Treichlers 1.036 (1.000-1.030) H 05/15/23 21:20 Urine Protein 1+ (Negative) H 05/15/23 21:20 Urine Glucose (UA) 3+ (Negative) H 05/15/23 21:20 Urine Ketones Trace (Negative) H 05/15/23 21:20 Urine Blood Negative (Negative) 05/15/23 21:20 Urine Nitrite Negative (Negative) 05/15/23 21:20 Urine Bilirubin Negative (Negative) 05/15/23 21:20 Urine Urobilinogen Negative (Negative) 05/15/23 21:20 Ur Leukocyte Esterase Negative (Negative) 05/15/23 21:20 Urine WBC (Auto) 0 /hpf (0-5) 05/15/23 21:20 Urine RBC (Auto) 0-4 /hpf (0-4) 05/15/23 21:20 U Hyaline Cast (Auto) 0 /lpf (0-5) 05/15/23 21:20 U Epithel Cells (Auto) 0-5 /lpf (0-5) 05/15/23 21:20 Urine Bacteria (Auto) Negative (Negative) 05/15/23 21:20 Staphylococcus sp PCR DETECTED (NotDetected) A 05/15/23 20:29 Staph aureus (PCR) DETECTED (NotDetected) A 05/15/23 20:29 mecA/C & MREJ Resist Gene MRSA DETECTED (NotDetected) A* 05/15/23 20:29 Bld Cult ID Panel PCR See PCR Comment (NotDetected) 05/15/23 20:29 Impressions Chest X-Ray 05/15/23 20:35 XR chest 1V portable HISTORY: 88 years-old Male Sepsis acute sepsis COMPARISON: 04/25/2022 TECHNIQUE: AP view of the chest FINDINGS: Cardiac silhouette is enlarged. Left subclavian pacer. Pulmonary vascular congestion. No pneumothorax, large pleural effusion or lobar airspace consolidation. Mild bibasilar atelectasis/scarring. Bilateral shoulder arthroplasties. IMPRESSION: 1. Cardiomegaly with pulmonary vascular congestion. 2. Mild bibasilar atelectasis. ACT 112: Negative or not required by law. The above report was generated using voice recognition software. It may contain grammatical, syntax or spelling errors. Electronically signed by: Brenden Donald M.D. 05/15/2023 9:29 PM
[2023-05-17] MEDS: HEPARIN SOD 5,000 UNIT/0.5 ML VIAL SQ SCH ×2 (13:34→21:06)
[2023-05-17] MEDS: MELATONIN 3 MG TAB PO SCH (20:51)
[2023-05-17] MEDS: ATORVASTATIN 40 MG TAB PO SCH (20:52)
[2023-05-17] MEDS: VANCOMYCIN HCL 1,750 MG in SODIUM CHLORIDE 0.9% 500 ML IV SCH (21:11)
[2023-05-17] MEDS ORDERED: VANCOMYCIN HCL 1,750 MG in SODIUM CHLORIDE 0.9% 500 ML IV SCH (22:00)
[2023-05-18] MEDS: HEPARIN SOD 5,000 UNIT/0.5 ML VIAL SQ SCH ×3 (05:08→21:26)
[2023-05-18 07:38] LABS: Basophils # (auto) 0.01 K/uL (0.00-0.20); Basophils % (auto) 0.2 %; Eosinophils # (auto) 0.06 K/uL (0.00-0.50); Eosinophils % (auto) 1.2 %; Hematocrit (blood only) 41.7 % (42.0-52.0); Hemoglobin 13.4 g/dl (14.0-18.0); Immature Granulocytes # (auto) 0.04 K/uL (0.01-0.20); Immature Granulocytes % (auto) 0.8 %; Lymphocytes # (auto) 1.54 K/uL (1.20-3.40); Mean Corpuscular Hemoglobin 29.3 pg (25.0-34.0); Mean Corpuscular Hgb Conc 32.1 g/dL (32.0-36.0); Mean Corpuscular Volume 91.2 fL (80.0-100.0); Mean Platelet Volume 10.3 fL (9.4-12.4); Monocytes # (auto) 0.63 K/uL (0.11-0.59); Monocytes % (auto) 12.3 %; Neutrophils # (auto) 2.86 K/uL (1.40-6.50); Neutrophils % (auto) 55.5 %; Platelet Count 128 K/uL (130-400); RDW Coefficient of Variation 15.3 % (11.5-14.5); RDW Standard Deviation 50.8 fL (36.4-46.3); Red Blood Count 4.57 M/uL (4.70-6.10); White Blood Count 5.14 K/ul (4.8-10.8)
[2023-05-18 07:53] LABS: Albumin Globulin Ratio 1.4 (0.9-2); Albumin Level 3.7 gm/dl (3.4-5.0); BUN Creatinine Ratio 36.3 (10-20); Bilirubin,Total 0.7 mg/dl (0.2-1.0); Calcium 8.4 mg/dl (8.6-10.3); Creatinine Clr Calc Pharmacy 61.3 ml/min; Est GFR (African American) 75.7 ml/min; Est GFR (Non-African American) 65.3 ml/min; Globulin 2.7 gm/dl (2.5-4.0); Potassium 3.7 mmol/L (3.5-5.1); Total Protein 6.4 gm/dl (6.0-8.3)
[2023-05-18] MEDS ORDERED: PHARMACY GLYCEMIC MGMT CONSULT PRN (08:02)
[2023-05-18] MEDS: INSULIN ASPART PER UNIT CHARGE SC SCH ×4 (08:25→21:06)
[2023-05-18] MEDS: DICLOFENAC SOD 1% GEL 100 GM TUBE EXT SCH ×2 (08:37→20:22)
[2023-05-18] MEDS: MULTIVITAMIN TAB PO SCH (08:39)
[2023-05-18] MEDS: CLOPIDOGREL BISULFATE 75 MG TAB PO SCH (08:39)
[2023-05-18] MEDS: GABAPENTIN 100 MG CAP PO SCH ×2 (08:39→20:22)
[2023-05-18] MEDS: DONEPEZIL HCL 10 MG TAB PO SCH (08:39)
[2023-05-18] MEDS: CITALOPRAM 20 MG TAB PO SCH (08:39)
[2023-05-18] MEDS: ISOSORBIDE MONO EXTENDED REL 30 MG TABCR PO SCH (08:39)
[2023-05-18] MEDS: ASPIRIN 81 MG ECTAB PO SCH (08:39)
[2023-05-18] MEDS: METOPROLOL SUCC 50MG EXT REL TAB PO SCH (08:39)
--- NOTE | 2023-05-18 09:58 | Pharmacy Report ---
Pharmacy PK ABX Note - Date of Service May 18, 2023 - Assessment and Plan Assessment * 88 year old M receiving vancomycin for treatment of MRSA bacteremia. * Pertinent microbiologic data includes: 1 of 2 blood cultures from 05/15 growing MRSA (BCID2 = MRSA), repeat BCs 05/18 * PMH: diabetes, CKD III, b/l hip and shoulder replacements, pacemaker * SCr at baseline Plan Vancomycin * Current regimen: 1750 mg IV every 24 hours * Random level obtained 05/18/23 resulted as 15.3 mcg/mL. This is predicted to achieve target AUC/HARISH of 400-600 mg/L.hr * Predicted AUC at steady state: 462 mg/L.hr * Continue 1750 mg IV every 24 hours * Will repeat level in the next 48-72 hours if therapy is continued and/or change in patient clinical status Pharmacy will continue to follow and will adjust dose/frequency as necessary. Thank you. Pharmacy has transitioned to AUC monitoring for vancomycin. AUC/HARISH is the preferred PK/PD target and is associated with decreased risk of nephrotoxicity compared to traditional trough targets.
--- NOTE | 2023-05-18 10:04 | Pharmacy Report ---
Pharmacy Glycemic Short Note 2 - Date of Service May 18, 2023 - Glycemic Short BSG Results (Last 24 hours): 05/17/23 05/17/23 05/17/23 11:28 15:27 20:54 Glucose POC Glucose 173 H 160 H 162 H 05/18/23 05/18/23 05/18/23 07:12 07:34 07:35 Glucose 100 H POC Glucose 420 H* 248 H 05/18/23 07:36 Glucose POC Glucose 349 H* 05/18/23 11:13 POC Glucose 157 H OUTPATIENT ANTIDIABETIC REGIMEN: * Semaglutide 7 mg PO QAM * Metformin 500mg PO BID * Empagloflozin 25mg PO QAM * A1c 8.6% 05/16/23 ASSESSMENT: * 88 year old male receiving IV Vancomycin for MRSA Bacteremia, was euglycemic yesterday and this morning had multiple high blood sugars on POC, yet venipuncture was 100mg/dl 30 min prior without eating in between. * Patient is fighting infection and A1c 8.6% on oral medications only at home. * Patient received a total of 9 units NovoLog insulin yesterday, blood sugars [phone]/dl. * I am hesitant to start basal insulin at this time, nursing to treat AM blood sugar based on lowest result, 248mg/dl to prevent error/hypoglycemia. * Will tighten CR at this time as blood sugars seem to rise with meals. * Add basal if BSGs continue to be elevated today/tomorrow fasting. * Blood sugar prior to lunch at goal down to 157mg/dl. PLAN FOR INPATIENT GLYCEMIC CONTROL: * Hold outpatient oral diabetes medications * Basal insulin * None at this time, consider adding tomorrow morning if fasting BSG still elevated * Bolus insulin * NovoLog per scale ACHS or Q6hrs while NPO * Goal Range: Low 120 mg/dL - High 150 mg/dL * Correction Factor: 30 mg/dL/unit * tighten: Nutritional / Prandial insulin per carb ratio of 1 unit per 8 grams CHO consumed
--- NOTE | 2023-05-18 12:55 | Hospitalist Progress Note ---
Date of Service May 18, 2023 Assessment & Plan (1) Fall: Plan: 88-year-old male with past med significant for type 2 diabetes, hyperlipidemia, nontoxic multinodular goiter, paroxysmal atrial tachycardia, history of CAD, history of paroxysmal atrial fibrillation, sinus node dysfunction, hypertension, right bundle branch block, diastolic dysfunction, dilatation of aorta, mixed Alzheimer's and vascular dementia, chronic kidney disease stage III, osteoarthritis, iron deficiency anemia due to chronic blood loss, depression, history of prostate cancer, history of colon cancer s/p partial colectomy, history of sundown syndrome, history of frequent falls who lives at home with his ambulates with a walker was brought in the morning with a fall at home with a cut in the back of his head and imaging studies were okay and was discharged back home but as per after going home he could not get out from the car and was not able to climbs steps into the home when she called back EMS and was brought in here. MRSA bacteremia Fall Weakness Ambulatory dysfunction Patient with multiple falls prior to admission. Had a fall a week prior to admission where he injured his right hand. Blood culture 1 of 4 grew MRSA Has history of pacemaker. Transthoracic echocardiogram done; no evidence of vegetation. Started on vancomycin. Continue for now. MICU noted to be 2; patient will likely benefit from daptomycin. Baseline CK obtained; not elevated. We will follow-up on infectious disease recommendation regarding the dosing of daptomycin. Suspect that his bacteremia started from bruises that he suffered from the falls. More specifically from the wound on his right hand Follow-up blood culture pending Continue wound care Type 2 diabetes Hold home p.o. medications Insulin sliding scale Mixed Alzheimer's and vascular dementia Monitor for delirium History of CAD On aspirin and Plavix and statin and Imdur and beta-ruth. Statin needs to be on hold if patient is placed on daptomycin. History of hypertension On Imdur, beta-ruth We will monitor History of paroxysmal atrial fibrillation On beta-ruth and aspirin Anticoagulation not recommended due to anemia and, possible GI bleeding and colon cancer and recurrent falls History of sinus node dysfunction s/p dual-chamber [employer] pacemaker History of colon cancer S/p partial colectomy History of prostate cancer. History of depression On citalopram DVT prophylaxis Heparin Disposition telemetry CODE STATUS full code if there is chance of recovery Time spent evaluating patient, direct bedside care, chart review, placing orders, interpretation of diagnostic studies, discussion with consultants, patient, and family members, as well as other required patient management activities is 60 minutes Please note the above document was generated using voice recognition software. It may contain grammatical, syntax or spelling errors. Any formal questions or concerns about the content, text or information contained within the body of this dictation should be directly addressed to the provider for clarification Admission and Anticipated Discharge Date Admission Date: May 16, 2023 Subjective Patient seen and examined at bedside. He reports that he is feeling much better compared to yesterday. He has been afebrile; hemodynamically stable Review of Systems Review of Systems: All systems reviewed & are unremarkable except as noted in Subjective Physical Exam Physical Exam: Constitutional: Alert, oriented to self and person Respiratory: Bilateral vesicular breath sound. Cardiovascular: RRR, no murmur, no edema Vessels: no JVD or carotid bruit Chest: normal inspection of chest Abdomen: normal bowel sounds, soft, nontender, no hepatosplenomegaly Musculoskeletal: Bruise present over dorsal aspect of right hand along with multiple bruises in bilateral lower extremity. Skin: no rashes, warm and dry normal turgor Neurologic: PERRL, EOMI, accommodation nl, no face palsy, no dysarthria CN's II- XI intact bilaterally and moves all extremities Psychiatric: Alert, oriented to self and person Results & Data Results & Data Vital Signs (Past 12 Hours) Vital Signs Temp Pulse Pulse Resp BP Pulse Ox O2 Del Method 05/18/23 07:35 66 22 97 05/18/23 06:53 36.4 C L 66 18 167/95 H 95 BiPAP 05/18/23 01:27 60 20 98 FiO2 05/18/23 07:35 25 05/18/23 06:53 05/18/23 01:27 25 Laboratory Results Laboratory Results WBC 5.14 K/ul (4.8-10.8) 05/18/23 07:12 RBC 4.57 M/uL (4.70-6.10) L 05/18/23 07:12 Hgb 13.4 g/dl (14.0-18.0) L 05/18/23 07:12 Hct 41.7 % (42.0-52.0) L 05/18/23 07:12 MCV 91.2 fL (80.0-100.0) 05/18/23 07:12 MCH 29.3 pg (25.0-34.0) 05/18/23 07:12 MCHC 32.1 g/dL (32.0-36.0) 05/18/23 07:12 RDW Std Deviation 50.8 fL (36.4-46.3) H 05/18/23 07:12 RDW Coeff of Mini 15.3 % (11.5-14.5) H 05/18/23 07:12 Plt Count 128 K/uL (130-400) L 05/18/23 07:12 MPV 10.3 fL (9.4-12.4) 05/18/23 07:12 Immature Gran % (Auto) 0.8 % 05/18/23 07:12 Neut % (Auto) 55.5 % 05/18/23 07:12 Lymph % (Auto) 30.0 % 05/18/23 07:12 Bonner % (Auto) 12.3 % 05/18/23 07:12 Eos % (Auto) 1.2 % 05/18/23 07:12 Baso % (Auto) 0.2 % 05/18/23 07:12 Neut # (Auto) 2.86 K/uL (1.40-6.50) 05/18/23 07:12 Lymph # (Auto) 1.54 K/uL (1.20-3.40) 05/18/23 07:12 Bonner # (Auto) 0.63 K/uL (0.11-0.59) H 05/18/23 07:12 Eos # (Auto) 0.06 K/uL (0.00-0.50) 05/18/23 07:12 Baso # (Auto) 0.01 K/uL (0.00-0.20) 05/18/23 07:12 Immature Gran # (Auto) 0.04 K/uL (0.01-0.20) 05/18/23 07:12 Polychromasia 1+ 05/17/23 05:32 Ovalocytes 1+ 05/17/23 05:32 Acanthocytes (Spur) 1+ 05/17/23 05:32 Sodium 139 mmol/L (136-145) 05/18/23 07:12 Potassium 3.7 mmol/L (3.5-5.1) 05/18/23 07:12 Chloride 109 mmol/L (98-107) H 05/18/23 07:12 Carbon Dioxide 22 mmol/L (21-32) 05/18/23 07:12 Anion Gap 8 (3-11) 05/18/23 07:12 BUN 37 mg/dl (6-23) H 05/18/23 07:12 Creatinine 1.02 mg/dl (0.6-1.4) 05/18/23 07:12 Est Cr Clr Drug Dosing 61.3 ml/min 05/18/23 07:12 Est GFR ( Amer) 75.7 ml/min 05/18/23 07:12 Est GFR (Non-Af Amer) 65.3 ml/min 05/18/23 07:12 BUN/Creatinine Ratio 36.3 (10-20) H 05/18/23 07:12 Glucose 100 mg/dl (70-99(Fasting)) H 05/18/23 07:12 POC Glucose 157 mg/dl (70-99) H 05/18/23 11:13 Estimat Average Glucose 200 mg/dl 05/16/23 06:53 Hemoglobin A1c 8.6 % (4.5-5.6) H 05/16/23 06:53 Lactate 2.0 mmol/L (0.4-2.0) 05/15/23 22:47 Calcium 8.4 mg/dl (8.6-10.3) L 05/18/23 07:12 Magnesium 2.1 mg/dl (1.7-2.4) 05/16/23 06:53 Total Bilirubin 0.7 mg/dl (0.2-1.0) 05/18/23 07:12 Direct Bilirubin 0.1 mg/dl (0-0.2) 05/15/23 20:44 AST 24 U/L (13-39) 05/18/23 07:12 ALT 20 U/L (7-52) 05/18/23 07:12 Alkaline Phosphatase 65 U/L (34-104) 05/18/23 07:12 Total Creatine Kinase 71 U/L (30-223) 05/18/23 07:12 Total Protein 6.4 gm/dl (6.0-8.3) 05/18/23 07:12 Albumin 3.7 gm/dl (3.4-5.0) 05/18/23 07:12 Globulin 2.7 gm/dl (2.5-4.0) 05/18/23 07:12 Albumin/Globulin Ratio 1.4 (0.9-2) 05/18/23 07:12 Procalcitonin < 0.05 ng/ml (0-0.5) 05/15/23 20:44 Urine Color Yellow 05/15/23 21:20 Urine Appearance Clear (Clear) 05/15/23 21:20 Urine pH 7.5 (4.5-7.5) 05/15/23 21:20 Ur Specific [place] 1.036 (1.000-1.030) H 05/15/23 21:20 Urine Protein 1+ (Negative) H 05/15/23 21:20 Urine Glucose (UA) 3+ (Negative) H 05/15/23 21:20 Urine Ketones Trace (Negative) H 05/15/23 21:20 Urine Blood Negative (Negative) 05/15/23 21:20 Urine Nitrite Negative (Negative) 05/15/23 21:20 Urine Bilirubin Negative (Negative) 05/15/23 21:20 Urine Urobilinogen Negative (Negative) 05/15/23 21:20 Ur Leukocyte Esterase Negative (Negative) 05/15/23 21:20 Urine WBC (Auto) 0 /hpf (0-5) 05/15/23 21:20 Urine RBC (Auto) 0-4 /hpf (0-4) 05/15/23 21:20 U Hyaline Cast (Auto) 0 /lpf (0-5) 05/15/23 21:20 U Epithel Cells (Auto) 0-5 /lpf (0-5) 05/15/23 21:20 Urine Bacteria (Auto) Negative (Negative) 05/15/23 21:20 Random Vancomycin 15.3 mcg/ml (10-20) 05/18/23 07:12 Staphylococcus sp PCR DETECTED (NotDetected) A 05/15/23 20:29 Staph aureus (PCR) DETECTED (NotDetected) A 05/15/23 20:29 mecA/C & MREJ Resist Gene MRSA DETECTED (NotDetected) A* 05/15/23 20:29 Bld Cult ID Panel PCR See PCR Comment (NotDetected) 05/15/23 20:29 Impressions Chest X-Ray 05/15/23 20:35 XR chest 1V portable HISTORY: 88 years-old Male Sepsis acute sepsis COMPARISON: 04/25/2022 TECHNIQUE: AP view of the chest FINDINGS: Cardiac silhouette is enlarged. Left subclavian pacer. Pulmonary vascular congestion. No pneumothorax, large pleural effusion or lobar airspace consolidation. Mild bibasilar atelectasis/scarring. Bilateral shoulder arthroplasties. IMPRESSION: 1. Cardiomegaly with pulmonary vascular congestion. 2. Mild bibasilar atelectasis. ACT 112: Negative or not required by law. The above report was generated using voice recognition software. It may contain grammatical, syntax or spelling errors. Electronically signed by: Brenden Donald M.D. 05/15/2023 9:29 PM
--- NOTE | 2023-05-18 17:45 | Infectious Disease Consult ---
Date of Service May 18, 2023 Telehealth Information I performed this visit using a real-time telehealth connection between my location and the patients location ([facility]). After connecting through interactive tele-video, patient was identified by name and date of and/or wristband check.Patient (or authorized healthcare sales representative consultant) was informed that this was a telemedicine visit and it was being conducted confidentially over secure lines. My office door was closed and no one else was present in the room with me.Patient (or authorized healthcare sales representative consultant) provided consent to proceed with the visit, expressed an understanding of privacy and security of the telemedicine visit, and gave permission to have a hospital sales representative consultant in the room in order to assist with the visit and to conduct portions of the visit, as needed. I informed the patient (or authorized healthcare sales representative consultant) that I reviewed their record and presented the opportunity for them to ask any questions regarding the visit today. The patient agreed to participate. Assessment & Plan (1) Bacteremia due to methicillin resistant Staphylococcus aureus: Plan: Low grade bacteremia likely from wound on right hand from trauma after fall. No signs of sepsis. Underlying PPM is a concern in this setting. A TTE cannot see the leads. If they are infected, device removal would be recommended to prevent recurrence of infection. If patient is not a candidate for device removal, then a BILLY may not be worth pursuing. If repeat cultures from today are still positive however, I would suggest pushing forward with this evaluation. If not, then we can assume underlying infection and treat accordingly with 6 weeks of IV vancomycin (HARISH 2 noted, but this may not be fully accurate). Daptomycin would be an alternative at 800-1000mg IV daily. Await further information in order to finalize abx plans. History of Present Illness History of Present Illness Mr. Noyola is an 88yo male with a h/o dementia, DM, CAD and prior PPM placement. He was admitted to [facility] on 05/16/23 after suffering a fall at home. EMS was called and brought him to the ED. He has had some increasing instability at home and had fallen a week prior with an injury to his right hand. Upon admission to [facility] he was confused and had cultures drawn. Blood cultures did subsequently turn positive for MRSA. He was started on IV vancomycin. Today he reports feeling better, but cannot clearly articualte how or why he was hospitalized. His is at the bedside and helps provide further history. No fevers, chills or sweats. No diarrhea or N/V. No rash. Allergies Allergy/AdvReac Type Severity Reaction Status Date / Time hydrocodone AdvReac Intermediate MAKES PT Verified 05/15/23 22:52 HALLUCINATE meperidine AdvReac Intermediate psych Verified 05/15/23 22:52 complications oxycodone AdvReac Intermediate MAKES PT Verified 05/15/23 22:52 HALLUCINATES Home Medications Medication Instructions Recorded Confirmed Type aspirin 81 mg tablet,delayed 81 mg PO DAILY 05/15/23 05/15/23 History release atorvastatin 40 mg tablet 40 mg PO HS 05/15/23 05/15/23 History biotin 5 mg tablet 5 mg PO QAM 05/15/23 05/15/23 History citalopram 20 mg tablet 20 mg PO QAM 05/15/23 05/15/23 History clopidogrel 75 mg tablet 75 mg PO DAILY 05/15/23 05/15/23 History diclofenac sodium 1 % topical gel 1 ea topical BID 05/15/23 05/15/23 History donepezil 10 mg tablet 10 mg PO DAILY 05/15/23 05/15/23 History empagliflozin 25 mg tablet 25 mg PO DAILY 05/15/23 05/15/23 History gabapentin 100 mg capsule 100 mg PO BID 05/15/23 05/15/23 History isosorbide mononitrate 30 mg 30 mg PO DAILY 05/15/23 05/15/23 History tablet,extended release 24 hr loperamide 2 mg capsule 2 mg PO DIRECTED 05/15/23 05/15/23 History meclizine 25 mg tablet 25 mg PO DAILY PRN dizzyness 05/15/23 05/15/23 History melatonin 10 mg tablet 10 mg PO HS 05/15/23 05/15/23 History metformin 500 mg tablet,extended 500 mg PO BID 05/15/23 05/15/23 History release 24 hr metoprolol succinate 50 mg 50 mg PO QAM 05/15/23 05/15/23 History tablet,extended release 24 hr multivitamin 1 tab PO DAILY 05/15/23 05/15/23 History omega-3 fatty acids 1,000 mg 1,000 mg PO DAILY 05/15/23 05/15/23 History capsule semaglutide 7 mg tablet (Rybelsus) 7 mg PO QAM 05/15/23 05/15/23 History Patient History Medical History CAD (coronary artery disease) Dementia Depression Diabetes mellitus, type 2 Diabetic neuropathy Hearing deficit History of colon cancer 2017--sx/oral chemo History of deep vein thrombosis (DVT) of lower extremity right leg---no blood thinners History of prostate cancer 2013--sx/radiation Hyperlipidemia Hypertension Myocardial Infarction hx of NSTEMI in setting of sepsis July [address] segment elevation myocardial manage medically, occurring in the setting of acute sepsis secondary abdominal abscess following colon resection for colon cancer. Sleep apnea cpap Surgical History H/O colectomy History of bilateral cataract extraction History of colon resection 2017 @ [facility] [place] d/t cancer History of left shoulder replacement History of open reduction and internal fixation (ORIF) procedure right ankle--no hardware History of prostate biopsy malignant History of prostatectomy d/t cancer History of revision of total replacement of right hip joint History of right shoulder replacement History of tooth extraction all teeth History of total left hip replacement History of total right hip replacement S/P cataract surgery S/P hip replacement Family History Denies family history of Heart disease Social History Smoking Status: Unknown if ever smoked Second Hand Exposure: No; Do You Dip or Chew Tobacco: No; Hx Alcohol Use: No Hx Substance Use: No Preferred Language: Upper Sorbian Communication Ability: Effective Watch Mechanic Required: No Beliefs That Will Affect Care: None marital status: Current Living Situation: Spouse Feels Safe at Home: Yes Assistive Devices: Walker Review of Systems Gen - No fevers, chills or night sweats HEENT- No RAY, sore throat Lungs- No SOB CB -No chest pain GI- No abdominal pain, N/V or diarrhea - No dysuria MSK-- injury to right hand as per HPI Skin- No rash Physical Exam Gen- NAD, cooperative with exam HEENT- NC AT Neck- ROM intact Lungs- Respiratory rate WNL MSK- Ecchymosis and skin tearing right dorsum of hand Skin- No rash Ext- No LE edema Results & Data Vital Signs (Past 12 Hours) Vital Signs Temp Pulse Pulse Resp BP Pulse Ox O2 Del Method 05/18/23 15:01 37.4 C 72 18 150/67 H 99 BiPAP 05/18/23 07:35 66 22 97 05/18/23 06:53 36.4 C L 66 18 167/95 H 95 BiPAP FiO2 05/18/23 15:01 05/18/23 07:35 25 05/18/23 06:53 Laboratory Results WBC 8.68 ->5.14 Hgb 13.4 Platelets 128 Na 139 Creatinine 1.02 BUN 37 LFTs WNL Diagnostic Findings TTE from 05/16/23 reviewed by me: no obviosu vegetation Blood cultures 05/15/23 with 1 of 4 blood cultures MRSA (vanco HARISH 2, dapto HARISH 1) Blood cultures 05/18/23 pending CXR from 05/15/23 reviewed by me: cardiomegaly, some pulmonary edema
[2023-05-18] MEDS: ATORVASTATIN 40 MG TAB PO SCH (20:22)
[2023-05-18] MEDS: MELATONIN 3 MG TAB PO SCH (20:40)
[2023-05-18] MEDS: VANCOMYCIN HCL 1,750 MG in SODIUM CHLORIDE 0.9% 500 ML IV SCH (21:26)
[2023-05-19] MEDS: HEPARIN SOD 5,000 UNIT/0.5 ML VIAL SQ SCH ×3 (05:07→20:36)
[2023-05-19 07:08] LABS: Basophils # (auto) 0.01 K/uL (0.00-0.20); Basophils % (auto) 0.2 %; Eosinophils # (auto) 0.11 K/uL (0.00-0.50); Eosinophils % (auto) 2.3 %; Hematocrit (blood only) 39.4 % (42.0-52.0); Hemoglobin 12.9 g/dl (14.0-18.0); Immature Granulocytes # (auto) 0.04 K/uL (0.01-0.20); Immature Granulocytes % (auto) 0.8 %; Lymphocytes % (auto) 29.5 %; Mean Corpuscular Hemoglobin 29.6 pg (25.0-34.0); Mean Corpuscular Hgb Conc 32.7 g/dL (32.0-36.0); Mean Corpuscular Volume 90.4 fL (80.0-100.0); Mean Platelet Volume 10.9 fL (9.4-12.4); Monocytes # (auto) 0.49 K/uL (0.11-0.59); Monocytes % (auto) 10.3 %; Neutrophils % (auto) 56.9 %; Platelet Count 129 K/uL (130-400); RDW Standard Deviation 49.7 fL (36.4-46.3); Red Blood Count 4.36 M/uL (4.70-6.10); White Blood Count 4.75 K/ul (4.8-10.8)
[2023-05-19 07:32] LABS: Albumin Globulin Ratio 1.3 (0.9-2); Albumin Level 3.6 gm/dl (3.4-5.0); BUN Creatinine Ratio 35.8 (10-20); Bilirubin,Total 0.8 mg/dl (0.2-1.0); Calcium 8.4 mg/dl (8.6-10.3); Creatinine Clr Calc Pharmacy 65.8 ml/min; Est GFR (African American) 82.5 ml/min; Est GFR (Non-African American) 71.2 ml/min; Globulin 2.7 gm/dl (2.5-4.0); Potassium 3.9 mmol/L (3.5-5.1); Total Protein 6.3 gm/dl (6.0-8.3)
[2023-05-19] MEDS: INSULIN ASPART PER UNIT CHARGE SC SCH ×4 (08:36→20:29)
[2023-05-19] MEDS: VANCOMYCIN HCL 1,250 MG in SODIUM CHLORIDE 0.9% 250 ML IV SCH ×2 (09:52→20:41)
[2023-05-19] MEDS: CITALOPRAM 20 MG TAB PO SCH (09:54)
[2023-05-19] MEDS: ASPIRIN 81 MG ECTAB PO SCH (09:54)
[2023-05-19] MEDS: CLOPIDOGREL BISULFATE 75 MG TAB PO SCH (09:54)
[2023-05-19] MEDS: DICLOFENAC SOD 1% GEL 100 GM TUBE EXT SCH ×2 (09:54→20:34)
[2023-05-19] MEDS: DONEPEZIL HCL 10 MG TAB PO SCH (09:55)
[2023-05-19] MEDS: GABAPENTIN 100 MG CAP PO SCH ×2 (09:55→20:33)
[2023-05-19] MEDS: METOPROLOL SUCC 50MG EXT REL TAB PO SCH (09:55)
[2023-05-19] MEDS: ISOSORBIDE MONO EXTENDED REL 30 MG TABCR PO SCH (09:55)
[2023-05-19] MEDS: MULTIVITAMIN TAB PO SCH (09:56)
--- NOTE | 2023-05-19 11:42 | Pharmacy Report ---
Pharmacy Glycemic Short Note 2 - Date of Service May 19, 2023 - Glycemic Short BSG Results (Last 24 hours): 05/18/23 05/18/23 05/18/23 16:27 16:28 16:59 Glucose 145 H POC Glucose 377 H* 528 H* 05/18/23 05/19/23 05/19/23 20:04 06:17 07:24 Glucose 126 H POC Glucose 140 H 112 H 05/19/23 11:22 Glucose POC Glucose 158 H OUTPATIENT ANTIDIABETIC REGIMEN: * Semaglutide 7 mg PO QAM * Metformin 500mg PO BID * Empagloflozin 25mg PO QAM * A1c 8.6% 05/16/23 ASSESSMENT: 05/19/23 * BSG at dinnertime yesterday was 377-528 mg/dL but serum glucose was 145 mg/dL. RN did not cover elevated BSG, only carbohydrates. The meter being used was removed from service for inspection. * BSG at bedtime was 140 mg/dL. * Today's BSGs are 112-158 mg/dL. * Continue Novolog. Hold Lantus as fasting within goal range. BACKGROUND * 88 year old male receiving IV Vancomycin for MRSA Bacteremia, was euglycemic yesterday and this morning had multiple high blood sugars on POC, yet venipuncture was 100mg/dl 30 min prior without eating in between. * Patient is fighting infection and A1c 8.6% on oral medications only at home. * Patient received a total of 9 units NovoLog insulin yesterday, blood sugars 73-874-548-162mg/dl. * I am hesitant to start basal insulin at this time, nursing to treat AM blood sugar based on lowest result, 248mg/dl to prevent error/hypoglycemia. * Will tighten CR at this time as blood sugars seem to rise with meals. * Add basal if BSGs continue to be elevated today/tomorrow fasting. * Blood sugar prior to lunch at goal down to 157mg/dl. PLAN FOR INPATIENT GLYCEMIC CONTROL: * Hold outpatient oral diabetes medications * Basal insulin * None * Bolus insulin * NovoLog per scale ACHS or Q6hrs while NPO * Goal Range: Low 120 mg/dL - High 150 mg/dL * Correction Factor: 30 mg/dL/unit * tighten: Nutritional / Prandial insulin per carb ratio of 1 unit per 8 grams CHO consumed
--- NOTE | 2023-05-19 12:50 | Hospitalist Progress Note ---
Date of Service May 19, 2023 Assessment & Plan (1) Fall: Plan: 88-year-old male with past med significant for type 2 diabetes, hyperlipidemia, nontoxic multinodular goiter, paroxysmal atrial tachycardia, history of CAD, history of paroxysmal atrial fibrillation, sinus node dysfunction, hypertension, right bundle branch block, diastolic dysfunction, dilatation of aorta, mixed Alzheimer's and vascular dementia, chronic kidney disease stage III, osteoarthritis, iron deficiency anemia due to chronic blood loss, depression, history of prostate cancer, history of colon cancer s/p partial colectomy, history of sundown syndrome, history of frequent falls who lives at home with his ambulates with a walker was brought in the morning with a fall at home with a cut in the back of his head and imaging studies were okay and was discharged back home but as per after going home he could not get out from the car and was not able to climbs steps into the home when she called back EMS and was brought in here. MRSA bacteremia Fall Weakness Ambulatory dysfunction Patient with multiple falls prior to admission. Had a fall a week prior to admission where he injured his right hand. Blood culture 1 of 4 grew MRSA Has history of pacemaker. Repeat blood cultureno growth in 24 hours Transthoracic echocardiogram done; no evidence of vegetation. Appreciate infectious disease recommendation. As per recommendation, will continue vancomycin for now. Await 48 hours of negative blood culture before placing a PICC line. Currently, patient's blood culture is negative for 24 hours. If patient's repeat blood culture turns out positive; will need further discussion with cardiology regarding BILLY. It will also require considering daptomycin as an alternative since HARISH for vancomycin is 2. Type 2 diabetes Hold home p.o. medications Insulin sliding scale Mixed Alzheimer's and vascular dementia Monitor for delirium History of CAD On aspirin and Plavix and statin and Imdur and beta-ruth. Statin needs to be on hold if patient is placed on daptomycin. History of hypertension On Imdur, beta-ruth We will monitor History of paroxysmal atrial fibrillation On beta-ruth and aspirin Anticoagulation not recommended due to anemia and, possible GI bleeding and colon cancer and recurrent falls History of sinus node dysfunction s/p dual-chamber Medtronic pacemaker History of colon cancer S/p partial colectomy History of prostate cancer. History of depression On citalopram DVT prophylaxis Heparin Disposition telemetry CODE STATUS full code if there is chance of recovery Dispopatient will need rehab due to ambulatory dysfunction and need for IV antibiotics. Awaiting blood cultures to be negative for at least 48 hours before placing the PICC line. Time spent evaluating patient, direct bedside care, chart review, placing orders, interpretation of diagnostic studies, discussion with consultants, patient, and family members, as well as other required patient management activities is 60 minutes Please note the above document was generated using voice recognition software. It may contain grammatical, syntax or spelling errors. Any formal questions or concerns about the content, text or information contained within the body of this dictation should be directly addressed to the provider for clarification Admission and Anticipated Discharge Date Admission Date: May 16, 2023 Subjective Patient seen and examined at bedside. He is lying on the bed comfortably; not in distress. He denies fever, chills, chest pain or shortness of breath. Afebrile and hemodynamically stable Review of Systems Review of Systems: All systems reviewed & are unremarkable except as noted in Subjective Physical Exam Physical Exam: Constitutional: Alert, oriented to self and person Respiratory: Bilateral vesicular breath sound. Cardiovascular: RRR, no murmur, no edema Vessels: no JVD or carotid bruit Chest: normal inspection of chest Abdomen: normal bowel sounds, soft, nontender, no hepatosplenomegaly Musculoskeletal: Bruise present over dorsal aspect of right hand along with multiple bruises in bilateral lower extremity. Skin: no rashes, warm and dry normal turgor Neurologic: PERRL, EOMI, accommodation nl, no face palsy, no dysarthria CN's II- XI intact bilaterally and moves all extremities Psychiatric: Alert, oriented to self and person Results & Data Results & Data Vital Signs (Past 12 Hours) Vital Signs Temp Pulse Pulse Resp BP Pulse Ox O2 Del Method 05/19/23 11:39 36.6 C 59 L 18 163/84 H 96 Room Air 05/19/23 09:59 69 139/74 05/19/23 07:48 36.5 C 58 L 20 148/88 H 96 Room Air 05/19/23 07:15 60 05/19/23 02:43 36.7 C 63 18 159/86 H 97 CPAP 05/19/23 02:19 61 18 96 05/19/23 01:55 61 05/19/23 01:16 CPAP FiO2 05/19/23 11:39 05/19/23 09:59 05/19/23 07:48 05/19/23 07:15 05/19/23 02:43 05/19/23 02:19 21 05/19/23 01:55 05/19/23 01:16 Laboratory Results Laboratory Results WBC 4.75 K/ul (4.8-10.8) L 05/19/23 06:17 RBC 4.36 M/uL (4.70-6.10) L 05/19/23 06:17 Hgb 12.9 g/dl (14.0-18.0) L 05/19/23 06:17 Hct 39.4 % (42.0-52.0) L 05/19/23 06:17 MCV 90.4 fL (80.0-100.0) 05/19/23 06:17 MCH 29.6 pg (25.0-34.0) 05/19/23 06:17 MCHC 32.7 g/dL (32.0-36.0) 05/19/23 06:17 RDW Std Deviation 49.7 fL (36.4-46.3) H 05/19/23 06:17 RDW Coeff of Mini 15.0 % (11.5-14.5) H 05/19/23 06:17 Plt Count 129 K/uL (130-400) L 05/19/23 06:17 MPV 10.9 fL (9.4-12.4) 05/19/23 06:17 Immature Gran % (Auto) 0.8 % 05/19/23 06:17 Neut % (Auto) 56.9 % 05/19/23 06:17 Lymph % (Auto) 29.5 % 05/19/23 06:17 [place] % (Auto) 10.3 % 05/19/23 06:17 Eos % (Auto) 2.3 % 05/19/23 06:17 Baso % (Auto) 0.2 % 05/19/23 06:17 Neut # (Auto) 2.70 K/uL (1.40-6.50) 05/19/23 06:17 Lymph # (Auto) 1.40 K/uL (1.20-3.40) 05/19/23 06:17 [place] # (Auto) 0.49 K/uL (0.11-0.59) 05/19/23 06:17 Eos # (Auto) 0.11 K/uL (0.00-0.50) 05/19/23 06:17 Baso # (Auto) 0.01 K/uL (0.00-0.20) 05/19/23 06:17 Immature Gran # (Auto) 0.04 K/uL (0.01-0.20) 05/19/23 06:17 Polychromasia 1+ 05/17/23 05:32 Ovalocytes 1+ 05/17/23 05:32 Acanthocytes (Spur) 1+ 05/17/23 05:32 Sodium 139 mmol/L (136-145) 05/19/23 06:17 Potassium 3.9 mmol/L (3.5-5.1) 05/19/23 06:17 Chloride 110 mmol/L (98-107) H 05/19/23 06:17 Carbon Dioxide 24 mmol/L (21-32) 05/19/23 06:17 Anion Gap 5 (3-11) 05/19/23 06:17 BUN 34 mg/dl (6-23) H 05/19/23 06:17 Creatinine 0.95 mg/dl (0.6-1.4) 05/19/23 06:17 Est Cr Clr Drug Dosing 65.8 ml/min 05/19/23 06:17 Est GFR ( Amer) 82.5 ml/min 05/19/23 06:17 Est GFR (Non-Af Amer) 71.2 ml/min 05/19/23 06:17 BUN/Creatinine Ratio 35.8 (10-20) H 05/19/23 06:17 Glucose 126 mg/dl (70-99(Fasting)) H 05/19/23 06:17 POC Glucose 158 mg/dl (70-99) H 05/19/23 11:22 Estimat Average Glucose 200 mg/dl 05/16/23 06:53 Hemoglobin A1c 8.6 % (4.5-5.6) H 05/16/23 06:53 Lactate 2.0 mmol/L (0.4-2.0) 05/15/23 22:47 Calcium 8.4 mg/dl (8.6-10.3) L 05/19/23 06:17 Magnesium 2.1 mg/dl (1.7-2.4) 05/16/23 06:53 Total Bilirubin 0.8 mg/dl (0.2-1.0) 05/19/23 06:17 Direct Bilirubin 0.1 mg/dl (0-0.2) 05/15/23 20:44 AST 37 U/L (13-39) 05/19/23 06:17 ALT 28 U/L (7-52) 05/19/23 06:17 Alkaline Phosphatase 70 U/L (34-104) 05/19/23 06:17 Total Creatine Kinase 71 U/L (30-223) 05/18/23 07:12 Total Protein 6.3 gm/dl (6.0-8.3) 05/19/23 06:17 Albumin 3.6 gm/dl (3.4-5.0) 05/19/23 06:17 Globulin 2.7 gm/dl (2.5-4.0) 05/19/23 06:17 Albumin/Globulin Ratio 1.3 (0.9-2) 05/19/23 06:17 Procalcitonin < 0.05 ng/ml (0-0.5) 05/15/23 20:44 Urine Color Yellow 05/15/23 21:20 Urine Appearance Clear (Clear) 05/15/23 21:20 Urine pH 7.5 (4.5-7.5) 05/15/23 21:20 Ur Specific [place] 1.036 (1.000-1.030) H 05/15/23 21:20 Urine Protein 1+ (Negative) H 05/15/23 21:20 Urine Glucose (UA) 3+ (Negative) H 05/15/23 21:20 Urine Ketones Trace (Negative) H 05/15/23 21:20 Urine Blood Negative (Negative) 05/15/23 21:20 Urine Nitrite Negative (Negative) 05/15/23 21:20 Urine Bilirubin Negative (Negative) 05/15/23 21:20 Urine Urobilinogen Negative (Negative) 05/15/23 21:20 Ur Leukocyte Esterase Negative (Negative) 05/15/23 21:20 Urine WBC (Auto) 0 /hpf (0-5) 05/15/23 21:20 Urine RBC (Auto) 0-4 /hpf (0-4) 05/15/23 21:20 U Hyaline Cast (Auto) 0 /lpf (0-5) 05/15/23 21:20 U Epithel Cells (Auto) 0-5 /lpf (0-5) 05/15/23 21:20 Urine Bacteria (Auto) Negative (Negative) 05/15/23 21:20 Random Vancomycin 15.3 mcg/ml (10-20) 05/18/23 07:12 Staphylococcus sp PCR DETECTED (NotDetected) A 05/15/23 20:29 Staph aureus (PCR) DETECTED (NotDetected) A 05/15/23 20:29 mecA/C & MREJ Resist Gene MRSA DETECTED (NotDetected) A* 05/15/23 20:29 Bld Cult ID Panel PCR See PCR Comment (NotDetected) 05/15/23 20:29 Impressions Chest X-Ray 05/15/23 20:35 XR chest 1V portable HISTORY: 88 years-old Male Sepsis acute sepsis COMPARISON: 04/25/2022 TECHNIQUE: AP view of the chest FINDINGS: Cardiac silhouette is enlarged. Left subclavian pacer. Pulmonary vascular co ngestion. No pneumothorax, large pleural effusion or lobar airspace consolidation. Mild bibasilar atelectasis/scarring. Bilateral shoulder arthroplasties. IMPRESSION: 1. Cardiomegaly with pulmonary vascular congestion. 2. Mild bibasilar atelectasis. ACT 112: Negative or not required by law. The above report was generated using voice recognition software. It may contain grammatical, syntax or spelling errors. Electronically signed by: Brenden Donald M.D. 05/15/2023 9:29 PM
[2023-05-19] MEDS: MELATONIN 3 MG TAB PO SCH (20:31)
[2023-05-19] MEDS: ATORVASTATIN 40 MG TAB PO SCH (20:33)
[2023-05-20] MEDS: HEPARIN SOD 5,000 UNIT/0.5 ML VIAL SQ SCH ×3 (05:05→20:46)
[2023-05-20 06:23] LABS: Basophils # (auto) 0.02 K/uL (0.00-0.20); Basophils % (auto) 0.4 %; Eosinophils # (auto) 0.12 K/uL (0.00-0.50); Eosinophils % (auto) 2.4 %; Hematocrit (blood only) 42.1 % (42.0-52.0); Hemoglobin 13.7 g/dl (14.0-18.0); Immature Granulocytes # (auto) 0.05 K/uL (0.01-0.20); Lymphocytes % (auto) 36.3 %; Mean Corpuscular Hemoglobin 29.1 pg (25.0-34.0); Mean Corpuscular Hgb Conc 32.5 g/dL (32.0-36.0); Mean Corpuscular Volume 89.4 fL (80.0-100.0); Monocytes # (auto) 0.58 K/uL (0.11-0.59); Monocytes % (auto) 11.7 %; Neutrophils # (auto) 2.39 K/uL (1.40-6.50); Neutrophils % (auto) 48.2 %; Platelet Count 149 K/uL (130-400); RDW Coefficient of Variation 14.9 % (11.5-14.5); RDW Standard Deviation 48.4 fL (36.4-46.3); Red Blood Count 4.71 M/uL (4.70-6.10); White Blood Count 4.96 K/ul (4.8-10.8)
[2023-05-20 06:45] LABS: Albumin Globulin Ratio 1.3 (0.9-2); Albumin Level 3.7 gm/dl (3.4-5.0); Bilirubin,Total 0.9 mg/dl (0.2-1.0); Calcium 8.9 mg/dl (8.6-10.3); Creatinine Clr Calc Pharmacy 71.1 ml/min; Est GFR (African American) 88.9 ml/min; Est GFR (Non-African American) 76.7 ml/min; Globulin 2.9 gm/dl (2.5-4.0); Potassium 3.7 mmol/L (3.5-5.1); Total Protein 6.6 gm/dl (6.0-8.3)
--- NOTE | 2023-05-20 07:43 | Pharmacy Report ---
Pharmacy PK ABX Note - Date of Service May 20, 2023 - Assessment and Plan Assessment * 88 year old M receiving vancomycin for treatment of MRSA bacteremia. * Pertinent microbiologic data includes: 1 of 2 blood cultures from 05/15 growing MRSA with vanc HARISH of 2 (turbidity test pending), repeat BCs 05/18 currently NGTD * PMH: diabetes, CKD III, b/l hip and shoulder replacements, pacemaker * SCr at baseline Plan Vancomycin * Current regimen: 1250 mg IV every 12 hours * Random level obtained 05/20/23 resulted as 16.9 mcg/mL. This is predicted to achieve target AUC/HARISH of 478 mg/L.hr * Due to nature of bacteremia (MRSA), will target higher AUC of 550-600 * Increase to 1500 mg IV every 12 hours * Will repeat level in the next 48-72 hours if therapy is continued and/or change in patient clinical status Pharmacy will continue to follow and will adjust dose/frequency as necessary. Thank you. Pharmacy has transitioned to AUC monitoring for vancomycin. AUC/HARISH is the preferred PK/PD target and is associated with decreased risk of nephrotoxicity compared to traditional trough targets.
[2023-05-20] MEDS: ASPIRIN 81 MG ECTAB PO SCH (07:56)
[2023-05-20] MEDS: METOPROLOL SUCC 50MG EXT REL TAB PO SCH (07:56)
[2023-05-20] MEDS: ISOSORBIDE MONO EXTENDED REL 30 MG TABCR PO SCH (07:56)
[2023-05-20] MEDS: GABAPENTIN 100 MG CAP PO SCH ×2 (07:56→20:43)
[2023-05-20] MEDS: CLOPIDOGREL BISULFATE 75 MG TAB PO SCH (07:56)
[2023-05-20] MEDS: DONEPEZIL HCL 10 MG TAB PO SCH (07:56)
[2023-05-20] MEDS: CITALOPRAM 20 MG TAB PO SCH (07:56)
[2023-05-20] MEDS: MULTIVITAMIN TAB PO SCH (07:56)
[2023-05-20] MEDS: DICLOFENAC SOD 1% GEL 100 GM TUBE EXT SCH ×2 (07:57→20:45)
[2023-05-20] MEDS: INSULIN ASPART PER UNIT CHARGE SC SCH ×4 (08:03→20:38)
[2023-05-20] MEDS: VANCOMYCIN HCL 1,500 MG in SODIUM CHLORIDE 0.9% 500 ML IV SCH ×2 (08:58→20:50)
--- NOTE | 2023-05-20 09:22 | Hospitalist Progress Note ---
Date of Service May 20, 2023 Assessment & Plan (1) Fall: Plan: 88-year-old male with past medical history significant for type 2 diabetes, hyperlipidemia, nontoxic multinodular goiter, paroxysmal atrial tachycardia, history of CAD, history of paroxysmal atrial fibrillation, sinus node dysfunction, hypertension, right bundle branch block, diastolic dysfunction, dilatation of aorta, mixed Alzheimer's and vascular dementia, chronic kidney disease stage III, osteoarthritis, iron deficiency anemia due to chronic blood loss, depression, history of prostate cancer, history of colon cancer s/p partial colectomy who was admitted with MRSA bacteremia. MRSA bacteremia Fall Weakness Ambulatory dysfunction Patient with multiple falls prior to admission. Had a fall a week prior to admission where he injured his right hand. Blood culture 1 of 4 grew MRSA Has a history of pacemaker placement. Repeat blood culture 05/18no growth after 48 hours Transthoracic echocardiogram done; no evidence of vegetation. ID consult, appreciate recs -At this time, continue with IV Vancomycin until 06/28 for 6 weeks of treatment -Check CBC w/ diff, BMP, and vanco trough weekly while on abx therapy -F/u w/ ID outpatient clinic w/in 3-5 weeks PICC line ordered- pt consent not yet obtained as follow up call to to obtain consent goes unanswered. Type 2 diabetes Hold home p.o. medications Insulin sliding scale Mixed Alzheimer's and vascular dementia Monitor for delirium History of CAD On aspirin and Plavix and statin and Imdur and beta-ruth. Statin needs to be on hold if patient is placed on daptomycin. History of hypertension On Imdur, beta-ruth We will monitor History of paroxysmal atrial fibrillation On beta-ruth and aspirin Anticoagulation not recommended due to anemia and, possible GI bleeding and colon cancer and recurrent falls History of sinus node dysfunction s/p dual-chamber Medtronic pacemaker Stable History of colon cancer S/p partial colectomy History of depression On citalopram DVT prophylaxis: Heparin CODE STATUS full code if there is chance of recovery Dispopatient will need rehab due to ambulatory dysfunction and need for IV antibiotics. Admission and Anticipated Discharge Date Admission Date: May 16, 2023 Subjective Pt seen in the AM, family at bedside. states that she is not able to care for him at home and will likely need placed. Pt denied any acute concerns, was able to introduce provider to everyone present in the room. Review of Systems Review of Systems: All systems reviewed & are unremarkable except as noted in Subjective Physical Exam Physical Exam: General: Alert. No acute distress Skin: No noted rashes or bruises Psych: Appropriate mood and affect Neuro: difficulty with movements HEENT: NC/AT CV: RRR, Normal s1, s2. Resp: Breath sounds clear bilaterally, no increased effort of breathing. Abdomen: Soft, nontender, nondistended. Extremities: Some edema in lower extremities bilaterally. Results & Data Results & Data Vital Signs (Past 12 Hours) Vital Signs Temp Pulse Pulse Resp BP Pulse Ox O2 Del Method 05/20/23 04:00 36.6 C 60 22 168/95 H 96 Room Air 05/20/23 02:31 61 05/19/23 23:10 37.1 C 65 19 141/80 H 95 CPAP 05/19/23 23:17 CPAP 05/19/23 21:55 60 21 96 FiO2 05/20/23 04:00 05/20/23 02:31 05/19/23 23:10 05/19/23 23:17 05/19/23 21:55 21
--- NOTE | 2023-05-20 10:41 | Infectious Disease Progress Nt ---
Date of Service May 20, 2023 Telehealth Information Done via chart review only Assessment & Plan (1) Bacteremia due to methicillin resistant Staphylococcus aureus: Plan: Blood cx (05/15): MRSA (1 of 4: S to clinda, dapto, rif, tetra, bact, vanco) Assessment: MRSA bacteremia (TTE negative, BILLY not pursued given low burden bacteremia) Recent fall w/ wound on dorsum of R hand PPM in place Hx of CAD and DM Recommendations: - Continune vancomycin iv to maintain AUC 400-600 or vanco trough 15-20 - Complete total 6 weeks from negative blood cultures (05/18/23), ending on 06/28/23. - Check CBC w/ diff, BMP, and vanco trough weekly while on abx therapy - F/u w/ ID outpatient clinic w/in 3-5 weeks - ID signing off Results & Data Vital Signs (Past 12 Hours) Vital Signs Temp Pulse Pulse Resp BP Pulse Ox O2 Del Method 05/20/23 04:00 36.6 C 60 22 168/95 H 96 Room Air 05/20/23 02:31 61 05/19/23 23:10 37.1 C 65 19 141/80 H 95 CPAP 05/19/23 23:17 CPAP
--- NOTE | 2023-05-20 12:12 | Pharmacy Report ---
Pharmacy Glycemic Short Note 2 - Date of Service May 20, 2023 - Glycemic Short BSG Results (Last 24 hours): 05/19/23 05/19/23 05/20/23 16:08 20:14 05:54 Glucose 149 H POC Glucose 178 H 223 H 05/20/23 05/20/23 07:34 11:32 Glucose POC Glucose 154 H 237 H OUTPATIENT ANTIDIABETIC REGIMEN: * Semaglutide 7 mg PO QAM * Metformin 500mg PO BID * Empagloflozin 25mg PO QAM * A1c 8.6% 05/16/23 ASSESSMENT: 05/20/23 * Patient's BSGs yesterday were [phone] mg/dL. * Today's BSGs are 154-237 mg/dL. * Since fasting is rising, will start Lantus today. * Tighten CR since BSGs trended upwards. 05/19/23 * BSG at dinnertime yesterday was 377-528 mg/dL but serum glucose was 145 mg/dL. RN did not cover elevated BSG, only carbohydrates. The meter being used was removed from service for inspection. * BSG at bedtime was 140 mg/dL. * Today's BSGs are 112-158 mg/dL. * Continue Novolog. Hold Lantus as fasting within goal range. BACKGROUND * 88 year old male receiving IV Vancomycin for MRSA Bacteremia, was euglycemic yesterday and this morning had multiple high blood sugars on POC, yet venipuncture was 100mg/dl 30 min prior without eating in between. * Patient is fighting infection and A1c 8.6% on oral medications only at home. * Patient received a total of 9 units NovoLog insulin yesterday, blood sugars [phone]/dl. * I am hesitant to start basal insulin at this time, nursing to treat AM blood sugar based on lowest result, 248mg/dl to prevent error/hypoglycemia. * Will tighten CR at this time as blood sugars seem to rise with meals. * Add basal if BSGs continue to be elevated today/tomorrow fasting. * Blood sugar prior to lunch at goal down to 157mg/dl. PLAN FOR INPATIENT GLYCEMIC CONTROL: * Hold outpatient oral diabetes medications * Basal insulin * Lantus 20 units SQ x1 * Bolus insulin * NovoLog per scale ACHS or Q6hrs while NPO * Goal Range: Low 120 mg/dL - High 150 mg/dL * Correction Factor: 25 mg/dL/unit * tighten: Nutritional / Prandial insulin per carb ratio of 1 unit per 6 grams CHO consumed
[2023-05-20] MEDS ORDERED: LANTUS PER UNIT CHARGE SC ONE (12:30)
[2023-05-20] MEDS: MELATONIN 3 MG TAB PO SCH (20:42)
[2023-05-20] MEDS: ATORVASTATIN 40 MG TAB PO SCH (20:44)
[2023-05-21 06:10] LABS: Basophils # (auto) 0.03 K/uL (0.00-0.20); Basophils % (auto) 0.6 %; Eosinophils # (auto) 0.13 K/uL (0.00-0.50); Eosinophils % (auto) 2.5 %; Hematocrit (blood only) 42.5 % (42.0-52.0); Hemoglobin 13.9 g/dl (14.0-18.0); Immature Granulocytes # (auto) 0.09 K/uL (0.01-0.20); Immature Granulocytes % (auto) 1.7 %; Lymphocytes % (auto) 32.6 %; Mean Corpuscular Hemoglobin 29.4 pg (25.0-34.0); Mean Corpuscular Hgb Conc 32.7 g/dL (32.0-36.0); Mean Corpuscular Volume 89.9 fL (80.0-100.0); Mean Platelet Volume 9.9 fL (9.4-12.4); Monocytes # (auto) 0.51 K/uL (0.11-0.59); Monocytes % (auto) 9.8 %; Neutrophils # (auto) 2.75 K/uL (1.40-6.50); Neutrophils % (auto) 52.8 %; Platelet Count 144 K/uL (130-400); RDW Coefficient of Variation 14.8 % (11.5-14.5); RDW Standard Deviation 48.6 fL (36.4-46.3); Red Blood Count 4.73 M/uL (4.70-6.10); White Blood Count 5.21 K/ul (4.8-10.8)
[2023-05-21] MEDS: HEPARIN SOD 5,000 UNIT/0.5 ML VIAL SQ SCH ×3 (06:16→20:37)
[2023-05-21 06:32] LABS: Albumin Globulin Ratio 1.2 (0.9-2); Albumin Level 3.6 gm/dl (3.4-5.0); BUN Creatinine Ratio 25.6 (10-20); Bilirubin,Total 0.7 mg/dl (0.2-1.0); Calcium 8.8 mg/dl (8.6-10.3); Creatinine Clr Calc Pharmacy 76.8 ml/min; Est GFR (African American) 91.5 ml/min; Globulin 2.9 gm/dl (2.5-4.0); Phosphorus 2.9 mg/dl (2.5-4.9); Potassium 3.6 mmol/L (3.5-5.1); Total Protein 6.5 gm/dl (6.0-8.3)
[2023-05-21] MEDS: MULTIVITAMIN TAB PO SCH (09:18)
[2023-05-21] MEDS: VANCOMYCIN HCL 1,250 MG in SODIUM CHLORIDE 0.9% 250 ML IV SCH ×2 (09:18→20:47)
[2023-05-21] MEDS: ISOSORBIDE MONO EXTENDED REL 30 MG TABCR PO SCH (09:19)
[2023-05-21] MEDS: CLOPIDOGREL BISULFATE 75 MG TAB PO SCH (09:19)
[2023-05-21] MEDS: ASPIRIN 81 MG ECTAB PO SCH (09:19)
[2023-05-21] MEDS: METOPROLOL SUCC 50MG EXT REL TAB PO SCH (09:19)
[2023-05-21] MEDS: GABAPENTIN 100 MG CAP PO SCH ×2 (09:19→20:40)
[2023-05-21] MEDS: CITALOPRAM 20 MG TAB PO SCH (09:19)
[2023-05-21] MEDS: DICLOFENAC SOD 1% GEL 100 GM TUBE EXT SCH ×2 (09:20→20:37)
[2023-05-21] MEDS: DONEPEZIL HCL 10 MG TAB PO SCH (09:20)
[2023-05-21] MEDS: INSULIN ASPART PER UNIT CHARGE SC SCH ×4 (09:26→20:27)
[2023-05-21] MEDS: LANTUS PER UNIT CHARGE SC SCH (09:27)
--- NOTE | 2023-05-21 15:45 | Hospitalist Progress Note ---
Date of Service May 21, 2023 Assessment & Plan (1) Fall: Plan: 88-year-old male with past medical history significant for type 2 diabetes, hyperlipidemia, nontoxic multinodular goiter, paroxysmal atrial tachycardia, history of CAD, history of paroxysmal atrial fibrillation, sinus node dysfunction, hypertension, right bundle branch block, diastolic dysfunction, dilatation of aorta, mixed Alzheimer's and vascular dementia, chronic kidney disease stage III, osteoarthritis, iron deficiency anemia due to chronic blood loss, depression, history of prostate cancer, history of colon cancer s/p partial colectomy who was admitted with MRSA bacteremia. MRSA bacteremia Fall Weakness Ambulatory dysfunction Patient with multiple falls prior to admission. Had a fall a week prior to admission where he injured his right hand. Blood culture 1 of 4 grew MRSA Has a history of pacemaker placement. Repeat blood culture 05/18no growth after 48 hours Transthoracic echocardiogram done; no evidence of vegetation. ID consult, appreciate recs -At this time, continue with IV Vancomycin until 06/28 for 6 weeks of treatment -Check CBC w/ diff, BMP, and vanco trough weekly while on abx therapy -F/u w/ ID outpatient clinic w/in 3-5 weeks PICC line - pt consent not yet obtained as follow up call to to obtain consent goes unanswered. Per on 05/21, will be by on 05/22 to sign consent. Pt awaiting placement at rehab, [facility] auth pending. Type 2 diabetes Hold home p.o. medications Insulin sliding scale Mixed Alzheimer's and vascular dementia Monitor for delirium History of CAD On aspirin and Plavix and statin and Imdur and beta-ruth. Statin needs to be on hold if patient is placed on daptomycin. History of hypertension On Imdur, beta-ruth We will monitor History of paroxysmal atrial fibrillation On beta-ruth and aspirin Anticoagulation not recommended due to anemia and, possible GI bleeding and colon cancer and recurrent falls History of sinus node dysfunction s/p dual-chamber Medtronic pacemaker Stable History of colon cancer S/p partial colectomy History of depression On citalopram DVT prophylaxis: Heparin CODE STATUS full code if there is chance of recovery Dispopatient will need rehab due to ambulatory dysfunction and need for IV antibiotics, [facility] auth pending. Admission and Anticipated Discharge Date Admission Date: May 16, 2023 Subjective Pt seen in the AM, family not at bedside. Laying in bed, denied acute concerns. AAOx1, states he is retired so lost track of everything else once that happened. Spoke to on phone later in the day, states that she will be by the next day in the AM and can sign any required consent then. Per CM, would like pt to be OOB every day and would like him to get rehab. Review of Systems Review of Systems: All systems reviewed & are unremarkable except as noted in Subjective Physical Exam Physical Exam: General: Alert. No acute distress Skin: No noted rashes or bruises Psych: Appropriate mood and affect Neuro: difficulty with movements HEENT: NC/AT CV: RRR, Normal s1, s2. Resp: Breath sounds clear bilaterally, no increased effort of breathing. Abdomen: Soft, nontender, nondistended. Extremities: Some edema in lower extremities bilaterally. Results & Data Results & Data Vital Signs (Past 12 Hours) Vital Signs Temp Pulse Resp BP Pulse Ox O2 Del Method 05/21/23 11:00 36.5 C 74 19 159/88 H 98 Room Air 05/21/23 07:35 36.5 C 88 20 169/74 H 97 Room Air 05/21/23 04:17 182/111 H
[2023-05-21] MEDS: MELATONIN 3 MG TAB PO SCH (20:38)
[2023-05-21] MEDS: ATORVASTATIN 40 MG TAB PO SCH (20:39)
[2023-05-22] MEDS: HEPARIN SOD 5,000 UNIT/0.5 ML VIAL SQ SCH ×3 (06:02→21:31)
[2023-05-22 06:19] LABS: Basophils # (auto) 0.05 K/uL (0.00-0.20); Basophils % (auto) 0.7 %; Eosinophils # (auto) 0.17 K/uL (0.00-0.50); Eosinophils % (auto) 2.5 %; Hematocrit (blood only) 40.9 % (42.0-52.0); Hemoglobin 13.6 g/dl (14.0-18.0); Immature Granulocytes # (auto) 0.16 K/uL (0.01-0.20); Immature Granulocytes % (auto) 2.4 %; Lymphocytes % (auto) 29.7 %; Mean Corpuscular Hemoglobin 29.5 pg (25.0-34.0); Mean Corpuscular Hgb Conc 33.3 g/dL (32.0-36.0); Mean Corpuscular Volume 88.7 fL (80.0-100.0); Mean Platelet Volume 10.4 fL (9.4-12.4); Monocytes # (auto) 0.57 K/uL (0.11-0.59); Monocytes % (auto) 8.5 %; Neutrophils # (auto) 3.78 K/uL (1.40-6.50); Neutrophils % (auto) 56.2 %; Platelet Count 156 K/uL (130-400); RDW Standard Deviation 48.1 fL (36.4-46.3); Red Blood Count 4.61 M/uL (4.70-6.10); White Blood Count 6.73 K/ul (4.8-10.8)
[2023-05-22 06:35] LABS: Albumin Globulin Ratio 1.3 (0.9-2); Albumin Level 3.8 gm/dl (3.4-5.0); Bilirubin,Total 0.8 mg/dl (0.2-1.0); Calcium 9.1 mg/dl (8.6-10.3); Creatinine Clr Calc Pharmacy 69.6 ml/min; Est GFR (African American) 88.5 ml/min; Est GFR (Non-African American) 76.3 ml/min; Phosphorus 3.2 mg/dl (2.5-4.9); Potassium 3.8 mmol/L (3.5-5.1); Total Protein 6.8 gm/dl (6.0-8.3)
[2023-05-22] MEDS: LANTUS PER UNIT CHARGE SC SCH (08:14)
[2023-05-22] MEDS: INSULIN ASPART PER UNIT CHARGE SC SCH ×4 (08:14→21:29)
[2023-05-22] MEDS: GABAPENTIN 100 MG CAP PO SCH ×2 (08:16→19:42)
[2023-05-22] MEDS: MULTIVITAMIN TAB PO SCH (08:16)
[2023-05-22] MEDS: METOPROLOL SUCC 50MG EXT REL TAB PO SCH (08:16)
[2023-05-22] MEDS: CITALOPRAM 20 MG TAB PO SCH (08:16)
[2023-05-22] MEDS: DICLOFENAC SOD 1% GEL 100 GM TUBE EXT SCH ×2 (08:16→19:41)
[2023-05-22] MEDS: DONEPEZIL HCL 10 MG TAB PO SCH (08:16)
[2023-05-22] MEDS: ISOSORBIDE MONO EXTENDED REL 30 MG TABCR PO SCH (08:16)
[2023-05-22] MEDS: CLOPIDOGREL BISULFATE 75 MG TAB PO SCH (08:16)
[2023-05-22] MEDS: ASPIRIN 81 MG ECTAB PO SCH (08:16)
--- NOTE | 2023-05-22 08:22 | Pharmacy Report ---
Pharmacy PK ABX Note - Date of Service May 22, 2023 - Assessment and Plan Assessment * 88 year old M receiving vancomycin for treatment of MRSA bacteremia. * Pertinent microbiologic data includes: 1 of 2 blood cultures from 05/15 growing MRSA with vanc HARISH of 1 via turbidity test, repeat BCs 05/18 currently NGTD * PMH: diabetes, CKD III, b/l hip and shoulder replacements, pacemaker * SCr at baseline Plan Vancomycin * Current regimen: 1250 mg IV every 12 hours * Random level obtained 05/22/23 resulted as 17.4 mcg/mL. This is predicted to achieve target AUC/HARISH of 574 mg/L.hr * Due to nature of bacteremia (MRSA), will target higher AUC of 550-600 * Continue regimen * Will repeat level in the next 48-72 hours if therapy is continued and/or change in patient clinical status Pharmacy will continue to follow and will adjust dose/frequency as necessary. Thank you. Pharmacy has transitioned to AUC monitoring for vancomycin. AUC/HARISH is the preferred PK/PD target and is associated with decreased risk of nephrotoxicity compared to traditional trough targets.
[2023-05-22] MEDS: VANCOMYCIN HCL 1,250 MG in SODIUM CHLORIDE 0.9% 250 ML IV SCH ×2 (08:51→19:56)
--- NOTE | 2023-05-22 12:37 | Pharmacy Report ---
Pharmacy Glycemic Short Note 2 - Date of Service May 22, 2023 - Glycemic Short BSG Results (Last 24 hours): 05/21/23 05/21/23 05/22/23 16:57 19:57 05:58 Glucose 129 H POC Glucose 90 131 H 05/22/23 05/22/23 07:35 11:24 Glucose POC Glucose 112 H 222 H OUTPATIENT ANTIDIABETIC REGIMEN: * Semaglutide 7 mg PO QAM * Metformin 500mg PO BID * Empagloflozin 25mg PO QAM * A1c 8.6% 05/16/23 ASSESSMENT: 05/22/23 * BSGs yesterday were [phone] mg/dL. Patient received 49 units of insulin (20 units of basal and 29 units of bolus). * Fasting today is 112 mg/dL- continue 20 units daily. * Tightened CR yesterday will continue today as lunch BSG trended upwards. 05/20/23 * Patient's BSGs yesterday were [phone] mg/dL. * Today's BSGs are 154-237 mg/dL. * Since fasting is rising, will start Lantus today. * Tighten CR since BSGs trended upwards. 05/19/23 * BSG at dinnertime yesterday was 377-528 mg/dL but serum glucose was 145 mg/dL. RN did not cover elevated BSG, only carbohydrates. The meter being used was removed from service for inspection. * BSG at bedtime was 140 mg/dL. * Today's BSGs are 112-158 mg/dL. * Continue Novolog. Hold Lantus as fasting within goal range. BACKGROUND * 88 year old male receiving IV Vancomycin for MRSA Bacteremia, was euglycemic yesterday and this morning had multiple high blood sugars on POC, yet venipuncture was 100mg/dl 30 min prior without eating in between. * Patient is fighting infection and A1c 8.6% on oral medications only at home. * Patient received a total of 9 units NovoLog insulin yesterday, blood sugars [phone]/dl. * I am hesitant to start basal insulin at this time, nursing to treat AM blood sugar based on lowest result, 248mg/dl to prevent error/hypoglycemia. * Will tighten CR at this time as blood sugars seem to rise with meals. * Add basal if BSGs continue to be elevated today/tomorrow fasting. * Blood sugar prior to lunch at goal down to 157mg/dl. PLAN FOR INPATIENT GLYCEMIC CONTROL: * Hold outpatient oral diabetes medications * Basal insulin * Lantus 20 units SQ daily * Bolus insulin * NovoLog per scale ACHS or Q6hrs while NPO * Goal Range: Low 110 mg/dL - High 140 mg/dL * Correction Factor: 25 mg/dL/unit * tighten: Nutritional / Prandial insulin per carb ratio of 1 unit per 5 grams CHO consumed
--- NOTE | 2023-05-22 14:41 | XRay Report ---
XR chest 1V portable HISTORY: 88 years-old Male Right PICC line placement status post placement of a right-sided PICC COMPARISON: 05/15/2023 TECHNIQUE: AP view of the chest FINDINGS: Cardiac silhouette is enlarged. A right-sided PICC is present with distal tip in the expected locatio n of the upper to mid SVC. No pneumothorax, or large pleural effusion. Pulmonary vascular congestion with interstitial coarsening again noted. Mild bibasilar densities favor atelectasis. Bilateral shoul mirna arthroplasties. IMPRESSION: 1. Status post placement of a right-sided PICC with distal tip expected location of the upper to mid SVC. 2. No postprocedural pneumothorax identified. ACT 112: Negative or not required by law. The above report was generated using voice recognition software. It may contain grammatical, syntax o r spelling errors. Electronically signed by: Brenden Donald M.D. 05/22/2023 2:39 PM
--- NOTE | 2023-05-22 18:36 | Hospitalist Progress Note ---
Date of Service May 22, 2023 Assessment & Plan (1) Fall: Plan: 88-year-old male with past medical history significant for type 2 diabetes, hyperlipidemia, nontoxic multinodular goiter, paroxysmal atrial tachycardia, history of CAD, history of paroxysmal atrial fibrillation, sinus node dysfunction, hypertension, right bundle branch block, diastolic dysfunction, dilatation of aorta, mixed Alzheimer's and vascular dementia, chronic kidney disease stage III, osteoarthritis, iron deficiency anemia due to chronic blood loss, depression, history of prostate cancer, history of colon cancer s/p partial colectomy who was admitted with MRSA bacteremia. MRSA bacteremia Fall Weakness Ambulatory dysfunction Patient with multiple falls prior to admission. Had a fall a week prior to admission where he injured his right hand. Blood culture 1 of 4 grew MRSA Has a history of pacemaker placement. Repeat blood culture 05/18no growth after 48 hours Transthoracic echocardiogram done; no evidence of vegetation. ID consult, appreciate recs -At this time, continue with IV Vancomycin until 06/28 for 6 weeks of treatment -Check CBC w/ diff, BMP, and vanco trough weekly while on abx therapy -F/u w/ ID outpatient clinic w/in 3-5 weeks PICC line - pt consent obtained from on 05/22 Type 2 diabetes Hold home p.o. medications Insulin sliding scale Mixed Alzheimer's and vascular dementia Monitor for delirium History of CAD On aspirin and Plavix and statin and Imdur and beta-ruth. Statin needs to be on hold if patient is placed on daptomycin. History of hypertension On Imdur, beta-ruth We will monitor History of paroxysmal atrial fibrillation On beta-ruth and aspirin Anticoagulation not recommended due to anemia and, possible GI bleeding and colon cancer and recurrent falls History of sinus node dysfunction s/p dual-chamber Medtronic pacemaker Stable History of colon cancer S/p partial colectomy History of depression On citalopram DVT prophylaxis: Heparin CODE STATUS full code if there is chance of recovery Dispopatient will need rehab due to ambulatory dysfunction and need for IV antibiotics, [facility] auth pending. Admission and Anticipated Discharge Date Admission Date: May 16, 2023 Subjective Pt seen in the AM, sitting in chair at bedside, sleeping in his hospital bed. AAOx2. PICC line consent completed with . Pt denies acute concerns at this time Review of Systems Review of Systems: All systems reviewed & are unremarkable except as noted in Subjective Physical Exam Physical Exam: General: Alert. No acute distress Skin: No noted rashes or bruises Psych: Appropriate mood and affect Neuro: difficulty with movements HEENT: NC/AT CV: RRR, Normal s1, s2. Resp: Breath sounds clear bilaterally, no increased effort of breathing. Abdomen: Soft, nontender, nondistended. Extremities: Some edema in lower extremities bilaterally. Results & Data Results & Data Vital Signs (Past 12 Hours) Vital Signs Temp Pulse Pulse Resp BP Pulse Ox O2 Del Method 05/22/23 16:06 60 05/22/23 15:35 36.6 C 60 18 133/70 96 Room Air 05/22/23 11:30 36.5 C 60 18 145/67 H 95 Room Air 05/22/23 09:21 173/87 H 05/22/23 08:04 36.5 C 66 16 188/99 H 95 Room Air 05/22/23 07:45 Room Air 05/22/23 07:45 59 L
[2023-05-22] MEDS: ATORVASTATIN 40 MG TAB PO SCH (19:40)
[2023-05-22] MEDS: MELATONIN 3 MG TAB PO SCH (19:43)
[2023-05-23] MEDS: HEPARIN SOD 5,000 UNIT/0.5 ML VIAL SQ SCH ×3 (06:35→21:39)
[2023-05-23 07:49] LABS: Basophils # (auto) 0.04 K/uL (0.00-0.20); Basophils % (auto) 0.7 %; Eosinophils # (auto) 0.14 K/uL (0.00-0.50); Eosinophils % (auto) 2.3 %; Hematocrit (blood only) 41.5 % (42.0-52.0); Hemoglobin 13.6 g/dl (14.0-18.0); Immature Granulocytes # (auto) 0.26 K/uL (0.01-0.20); Immature Granulocytes % (auto) 4.3 %; Lymphocytes # (auto) 1.55 K/uL (1.20-3.40); Lymphocytes % (auto) 25.5 %; Mean Corpuscular Hemoglobin 29.3 pg (25.0-34.0); Mean Corpuscular Hgb Conc 32.8 g/dL (32.0-36.0); Mean Corpuscular Volume 89.4 fL (80.0-100.0); Mean Platelet Volume 10.1 fL (9.4-12.4); Monocytes % (auto) 8.2 %; Neutrophils # (auto) 3.59 K/uL (1.40-6.50); Platelet Count 167 K/uL (130-400); RDW Coefficient of Variation 14.9 % (11.5-14.5); RDW Standard Deviation 48.3 fL (36.4-46.3); Red Blood Count 4.64 M/uL (4.70-6.10); White Blood Count 6.08 K/ul (4.8-10.8)
[2023-05-23] MEDS: CLOPIDOGREL BISULFATE 75 MG TAB PO SCH (07:49)
[2023-05-23] MEDS: ASPIRIN 81 MG ECTAB PO SCH (07:49)
[2023-05-23] MEDS: CITALOPRAM 20 MG TAB PO SCH (07:49)
[2023-05-23] MEDS: DONEPEZIL HCL 10 MG TAB PO SCH (07:50)
[2023-05-23] MEDS: GABAPENTIN 100 MG CAP PO SCH ×2 (07:50→19:49)
[2023-05-23] MEDS: DICLOFENAC SOD 1% GEL 100 GM TUBE EXT SCH ×2 (07:50→19:50)
[2023-05-23] MEDS: METOPROLOL SUCC 50MG EXT REL TAB PO SCH (07:51)
[2023-05-23] MEDS: ISOSORBIDE MONO EXTENDED REL 30 MG TABCR PO SCH (07:51)
[2023-05-23] MEDS: MULTIVITAMIN TAB PO SCH (07:51)
[2023-05-23] MEDS: LANTUS PER UNIT CHARGE SC SCH (08:30)
[2023-05-23] MEDS: INSULIN ASPART PER UNIT CHARGE SC SCH ×4 (08:30→21:31)
[2023-05-23 08:33] LABS: Albumin Globulin Ratio 1.3 (0.9-2); Albumin Level 3.5 gm/dl (3.4-5.0); Bilirubin,Total 0.7 mg/dl (0.2-1.0); Calcium 8.9 mg/dl (8.6-10.3); Creatinine Clr Calc Pharmacy 69.2 ml/min; Est GFR (African American) 86.9 ml/min; Globulin 2.7 gm/dl (2.5-4.0); Magnesium 1.9 mg/dl (1.7-2.4); Phosphorus 2.8 mg/dl (2.5-4.9); Potassium 3.8 mmol/L (3.5-5.1); Total Protein 6.2 gm/dl (6.0-8.3)
--- NOTE | 2023-05-23 09:01 | Hospitalist Progress Note ---
Date of Service May 23, 2023 Assessment & Plan (1) Fall: Plan: 88-year-old male with past medical history significant for type 2 diabetes, hyperlipidemia, nontoxic multinodular goiter, paroxysmal atrial tachycardia, history of CAD, history of paroxysmal atrial fibrillation, sinus node dysfunction, hypertension, right bundle branch block, diastolic dysfunction, dilatation of aorta, mixed Alzheimer's and vascular dementia, chronic kidney disease stage III, osteoarthritis, iron deficiency anemia due to chronic blood loss, depression, history of prostate cancer, history of colon cancer s/p partial colectomy who was admitted with MRSA bacteremia. MRSA bacteremia Fall Weakness Ambulatory dysfunction Patient with multiple falls prior to admission. Had a fall a week prior to admission where he injured his right hand. Blood culture 1 of 4 grew MRSA Has a history of pacemaker placement. Repeat blood culture 05/18no growth after 48 hours Transthoracic echocardiogram done; no evidence of vegetation. ID consult, appreciate recs -At this time, continue with IV Vancomycin until 06/28 for 6 weeks of treatment -Check CBC w/ diff, BMP, and vanco trough weekly while on abx therapy -F/u w/ ID outpatient clinic w/in 3-5 weeks PICC line - pt consent obtained from on 05/22 Type 2 diabetes Hold home p.o. medications Insulin sliding scale Mixed Alzheimer's and vascular dementia Monitor for delirium History of CAD On aspirin and Plavix and statin and Imdur and beta-ruth. Statin needs to be on hold if patient is placed on daptomycin. History of hypertension On Imdur, beta-ruth We will monitor History of paroxysmal atrial fibrillation On beta-ruth and aspirin Anticoagulation not recommended due to anemia and, possible GI bleeding and colon cancer and recurrent falls History of sinus node dysfunction s/p dual-chamber Medtronic pacemaker Stable History of colon cancer S/p partial colectomy History of depression On citalopram Diet: HH/DMII DVT prophylaxis: Heparin CODE STATUS full code if there is chance of recovery [facility]Currently [facility] Admission and Anticipated Discharge Date Admission Date: May 16, 2023 Subjective Pt seen in the AM, laying in the bed. AAOx2. Pt denies acute concerns at this time Review of Systems Review of Systems: All systems reviewed & are unremarkable except as noted in Subjective Physical Exam Physical Exam: General: Alert. No acute distress Skin: No noted rashes or bruises Psych: Appropriate mood and affect Neuro: difficulty with movements HEENT: NC/AT CV: RRR, Normal s1, s2. Resp: Breath sounds clear bilaterally, no increased effort of breathing. Abdomen: Soft, nontender, nondistended. Extremities: Some edema in lower extremities bilaterally. Results & Data Results & Data Vital Signs (Past 12 Hours) Vital Signs Temp Pulse Pulse Resp BP Pulse Ox O2 Del Method 05/23/23 07:39 Room Air, BiPAP 05/23/23 07:27 36.6 C 66 16 150/84 H 96 Room Air 05/23/23 07:16 60 05/23/23 03:50 36.3 C L 60 20 128/80 95 Room Air 05/23/23 03:03 62 18 97 05/23/23 00:02 60 05/22/23 23:49 36.4 C L 60 22 136/75 97 BiPAP 05/22/23 23:00 61 22 95 FiO2 05/23/23 07:39 05/23/23 07:27 05/23/23 07:16 05/23/23 03:50 05/23/23 03:03 21 05/23/23 00:02 05/22/23 23:49 21 05/22/23 23:00 21
[2023-05-23] MEDS: VANCOMYCIN HCL 1,250 MG in SODIUM CHLORIDE 0.9% 250 ML IV SCH ×2 (09:18→20:05)
[2023-05-23] MEDS ORDERED: LANTUS PER UNIT CHARGE SC ONE (13:00)
[2023-05-23] MEDS ORDERED: OLANZapine 10 MG/2.1 ML SDV IM STA (19:44)
[2023-05-23] MEDS ORDERED: OLANZapine 10 MG/2.1 ML SDV IM PRN (19:44)
[2023-05-23] MEDS: MELATONIN 3 MG TAB PO SCH (19:49)
[2023-05-23] MEDS: ATORVASTATIN 40 MG TAB PO SCH (19:50)
[2023-05-23 20:16] LABS: Appearance Urine Clear (Clear); Bilirubin Urine Negative (Negative); Blood Urine Negative (Negative); Color Urine Yellow; Glucose Urine UA Negative (Negative); Ketones Urine Negative (Negative); Leukocyte Esterase Urine Negative (Negative); Nitrite Urine Negative (Negative); Protein Urine Negative (Negative); Specific Gravity Urine 1.011 (1.000-1.030); Urobilinogen Urine Negative (Negative)
[2023-05-24] MEDS: HEPARIN SOD 5,000 UNIT/0.5 ML VIAL SQ SCH ×3 (05:02→21:04)
[2023-05-24 07:08] LABS: Basophils # (auto) 0.04 K/uL (0.00-0.20); Basophils % (auto) 0.7 %; Eosinophils # (auto) 0.12 K/uL (0.00-0.50); Hematocrit (blood only) 41.8 % (42.0-52.0); Hemoglobin 13.8 g/dl (14.0-18.0); Immature Granulocytes # (auto) 0.23 K/uL (0.01-0.20); Immature Granulocytes % (auto) 3.9 %; Lymphocytes # (auto) 1.61 K/uL (1.20-3.40); Lymphocytes % (auto) 27.1 %; Mean Corpuscular Hemoglobin 29.4 pg (25.0-34.0); Mean Corpuscular Volume 89.1 fL (80.0-100.0); Mean Platelet Volume 10.2 fL (9.4-12.4); Monocytes # (auto) 0.53 K/uL (0.11-0.59); Monocytes % (auto) 8.9 %; Neutrophils # (auto) 3.41 K/uL (1.40-6.50); Neutrophils % (auto) 57.4 %; Platelet Count 190 K/uL (130-400); RDW Coefficient of Variation 15.4 % (11.5-14.5); RDW Standard Deviation 49.9 fL (36.4-46.3); Red Blood Count 4.69 M/uL (4.70-6.10); White Blood Count 5.94 K/ul (4.8-10.8)
[2023-05-24 07:30] LABS: BUN Creatinine Ratio 24.7 (10-20); Creatinine Clr Calc Pharmacy 71.9 ml/min; Est GFR (African American) 88.5 ml/min; Est GFR (Non-African American) 76.3 ml/min; Phosphorus 3.8 mg/dl (2.5-4.9); Potassium 3.8 mmol/L (3.5-5.1)
[2023-05-24] MEDS: CLOPIDOGREL BISULFATE 75 MG TAB PO SCH (08:35)
[2023-05-24] MEDS: DONEPEZIL HCL 10 MG TAB PO SCH (08:35)
[2023-05-24] MEDS: CITALOPRAM 20 MG TAB PO SCH (08:35)
[2023-05-24] MEDS: GABAPENTIN 100 MG CAP PO SCH ×2 (08:35→20:04)
[2023-05-24] MEDS: MULTIVITAMIN TAB PO SCH (08:35)
[2023-05-24] MEDS: DICLOFENAC SOD 1% GEL 100 GM TUBE EXT SCH ×2 (08:35→20:04)
[2023-05-24] MEDS: ASPIRIN 81 MG ECTAB PO SCH (08:35)
[2023-05-24] MEDS: ISOSORBIDE MONO EXTENDED REL 30 MG TABCR PO SCH (08:35)
[2023-05-24] MEDS: METOPROLOL SUCC 50MG EXT REL TAB PO SCH (08:35)
[2023-05-24] MEDS: INSULIN ASPART PER UNIT CHARGE SC SCH ×4 (08:42→20:36)
[2023-05-24] MEDS: VANCOMYCIN HCL 1,250 MG in SODIUM CHLORIDE 0.9% 250 ML IV SCH ×2 (08:47→20:03)
[2023-05-24] MEDS ORDERED: LANTUS PER UNIT CHARGE SC SCH (09:00)
--- NOTE | 2023-05-24 11:54 | Hospitalist Progress Note ---
Date of Service May 24, 2023 Assessment & Plan (1) Fall: Plan: 88-year-old male with past medical history significant for type 2 diabetes, hyperlipidemia, nontoxic multinodular goiter, paroxysmal atrial tachycardia, history of CAD, history of paroxysmal atrial fibrillation, sinus node dysfunction, hypertension, right bundle branch block, diastolic dysfunction, dilatation of aorta, mixed Alzheimer's and vascular dementia, chronic kidney disease stage III, osteoarthritis, iron deficiency anemia due to chronic blood loss, depression, history of prostate cancer, history of colon cancer s/p partial colectomy who was admitted with MRSA bacteremia. MRSA bacteremia Fall Weakness Ambulatory dysfunction Patient with multiple falls prior to admission. Had a fall a week prior to admission where he injured his right hand. Blood culture 1 of 4 grew MRSA Has a history of pacemaker placement. Repeat blood culture 05/18no growth after 48 hours Transthoracic echocardiogram done; no evidence of vegetation. ID consult, appreciate recs -At this time, continue with IV Vancomycin until 06/28 for 6 weeks of treatment -Check CBC w/ diff, BMP, and vanco trough weekly while on abx therapy -F/u w/ ID outpatient clinic w/in 3-5 weeks PICC line - pt consent obtained from on 05/22 Type 2 diabetes Hold home p.o. medications Insulin sliding scale Mixed Alzheimer's and vascular dementia Monitor for delirium History of CAD On aspirin and Plavix and statin and Imdur and beta-ruth. Statin needs to be on hold if patient is placed on daptomycin. History of hypertension On Imdur, beta-ruth We will monitor History of paroxysmal atrial fibrillation On beta-ruth and aspirin Anticoagulation not recommended due to anemia and, possible GI bleeding and colon cancer and recurrent falls History of sinus node dysfunction s/p dual-chamber Medtronic pacemaker Stable History of colon cancer S/p partial colectomy History of depression On citalopram Diet: HH/DMII DVT prophylaxis: Heparin CODE STATUS full code if there is chance of recovery [facility]poCurrently [facility]. Admission and Anticipated Discharge Date Admission Date: May 16, 2023 Subjective Pt seen in the AM, sitting in chair beside bed AAOx2. Pt denies acute concerns at this time Review of Systems Review of Systems: All systems reviewed & are unremarkable except as noted in Subjective Physical Exam Physical Exam: General: Alert. No acute distress Skin: No noted rashes or bruises Psych: Appropriate mood and affect Neuro: difficulty with movements HEENT: NC/AT CV: RRR, Normal s1, s2. Resp: Breath sounds decreased bilaterally, no increased effort of breathing. Abdomen: Soft, nontender, nondistended. Extremities: Some edema in lower extremities bilaterally. Results & Data Results & Data Vital Signs (Past 12 Hours) Vital Signs Temp Pulse Pulse Resp BP Pulse Ox O2 Del Method 05/24/23 08:00 BiPAP 05/24/23 07:28 36.8 C 60 17 146/90 H 93 BiPAP 05/24/23 07:07 60 05/24/23 03:30 36.5 C 62 18 136/87 94 Room Air 05/24/23 01:14 EST 67 18 96 FiO2 05/24/23 08:00 05/24/23 07:28 05/24/23 07:07 05/24/23 03:30 05/24/23 01:14 EST 21
[2023-05-24] MEDS: ATORVASTATIN 40 MG TAB PO SCH (20:04)
[2023-05-24] MEDS: MELATONIN 3 MG TAB PO SCH (20:04)
[2023-05-25] MEDS: HEPARIN SOD 5,000 UNIT/0.5 ML VIAL SQ SCH (05:00)
[2023-05-25] MEDS ORDERED: VANCOMYCIN LEVEL ONE (08:00)
[2023-05-25 08:05] LABS: Basophils # (auto) 0.03 K/uL (0.00-0.20); Basophils % (auto) 0.5 %; Eosinophils # (auto) 0.12 K/uL (0.00-0.50); Eosinophils % (auto) 2.1 %; Hemoglobin 12.9 g/dl (14.0-18.0); Immature Granulocytes # (auto) 0.18 K/uL (0.01-0.20); Immature Granulocytes % (auto) 3.1 %; Lymphocytes # (auto) 1.45 K/uL (1.20-3.40); Mean Corpuscular Hemoglobin 29.1 pg (25.0-34.0); Mean Corpuscular Hgb Conc 32.3 g/dL (32.0-36.0); Mean Corpuscular Volume 90.3 fL (80.0-100.0); Mean Platelet Volume 9.9 fL (9.4-12.4); Monocytes # (auto) 0.55 K/uL (0.11-0.59); Monocytes % (auto) 9.5 %; Neutrophils # (auto) 3.47 K/uL (1.40-6.50); Neutrophils % (auto) 59.8 %; Platelet Count 167 K/uL (130-400); RDW Coefficient of Variation 15.2 % (11.5-14.5); RDW Standard Deviation 50.2 fL (36.4-46.3); Red Blood Count 4.43 M/uL (4.70-6.10)
[2023-05-25] MEDS: ISOSORBIDE MONO EXTENDED REL 30 MG TABCR PO SCH (08:18)
[2023-05-25] MEDS: GABAPENTIN 100 MG CAP PO SCH (08:18)
[2023-05-25] MEDS: CITALOPRAM 20 MG TAB PO SCH (08:18)
[2023-05-25] MEDS: DONEPEZIL HCL 10 MG TAB PO SCH (08:18)
[2023-05-25] MEDS: ASPIRIN 81 MG ECTAB PO SCH (08:18)
[2023-05-25] MEDS: DICLOFENAC SOD 1% GEL 100 GM TUBE EXT SCH (08:18)
[2023-05-25] MEDS: MULTIVITAMIN TAB PO SCH (08:18)
[2023-05-25] MEDS: METOPROLOL SUCC 50MG EXT REL TAB PO SCH (08:18)
[2023-05-25] MEDS: CLOPIDOGREL BISULFATE 75 MG TAB PO SCH (08:18)
[2023-05-25] MEDS: INSULIN ASPART PER UNIT CHARGE SC SCH ×2 (08:25→12:16)
[2023-05-25] MEDS: VANCOMYCIN HCL 1,250 MG in SODIUM CHLORIDE 0.9% 250 ML IV SCH (08:26)
[2023-05-25 08:39] LABS: BUN Creatinine Ratio 30.3 (10-20); Calcium 8.9 mg/dl (8.6-10.3); Creatinine Clr Calc Pharmacy 71.9 ml/min; Est GFR (African American) 88.5 ml/min; Est GFR (Non-African American) 76.3 ml/min; Magnesium 1.9 mg/dl (1.7-2.4); Phosphorus 3.5 mg/dl (2.5-4.9); Potassium 3.9 mmol/L (3.5-5.1)
[2023-05-25] MEDS ORDERED: LANTUS PER UNIT CHARGE SC SCH (09:00)
--- NOTE | 2023-05-25 12:27 | Pharmacy Report ---
Pharmacy PK ABX Note - Date of Service May 25, 2023 - Assessment and Plan Assessment 05/25: * Reviewed vancomycin level, predicting level slightly above goal AUC/HARISH. Repeat blood cultures 05/18 NG x5 days. ID consulted, recommends continue IV vancomycin x 6weeks with a goal for AUC/HARIHS 400-600 05/22: * 88 year old M receiving vancomycin for treatment of MRSA bacteremia. * Pertinent microbiologic data includes: 1 of 2 blood cultures from 05/15 growing MRSA with vanc HARISH of 1 via turbidity test, repeat BCs 05/18 currently NGTD * PMH: diabetes, CKD III, b/l hip and shoulder replacements, pacemaker * SCr at baseline Plan Vancomycin * Current regimen: 1250 mg IV every 12 hours * Random level obtained 05/22/23 resulted as 19. mcg/mL. This is predicted to achieve target AUC/HARISH of 612 mg/L.hr, slightly above goal range with an estimated nephrotoxicity of 16% * Due to nature of bacteremia (MRSA), will target higher AUC of 500-600 * Decrease vancomycin to 1000 mg IV every 12 hours. This is predicted to achieve target AUC/HARISH of 515 mg/L.hr with a 12% risk of nephrotoxicity. * Next trough 05/27/23 @0800 Pharmacy will continue to follow and will adjust dose/frequency as necessary. Thank you. Pharmacy has transitioned to AUC monitoring for vancomycin. AUC/HARISH is the preferred PK/PD target and is associated with decreased risk of nephrotoxicity compared to traditional trough targets.
--- NOTE | 2023-05-25 13:35 | Hospitalist Progress Note ---
Date of Service May 25, 2023 Assessment & Plan (1) Fall: Plan: 88-year-old male with past medical history significant for type 2 diabetes, hyperlipidemia, nontoxic multinodular goiter, paroxysmal atrial tachycardia, history of CAD, history of paroxysmal atrial fibrillation, sinus node dysfunction, hypertension, right bundle branch block, diastolic dysfunction, dilatation of aorta, mixed Alzheimer's and vascular dementia, chronic kidney disease stage III, osteoarthritis, iron deficiency anemia due to chronic blood loss, depression, history of prostate cancer, history of colon cancer s/p partial colectomy who was admitted with MRSA bacteremia. MRSA bacteremia Fall Weakness Ambulatory dysfunction Patient with multiple falls prior to admission. Had a fall a week prior to admission where he injured his right hand. Blood culture 1 of 4 grew MRSA Has a history of pacemaker placement. Repeat blood culture 05/18no growth after 48 hours Transthoracic echocardiogram done; no evidence of vegetation. ID consult, appreciate recs -At this time, continue with IV Vancomycin until 06/28 for 6 weeks of treatment -Check CBC w/ diff, BMP, and vanco trough weekly while on abx therapy -F/u w/ ID outpatient clinic w/in 3-5 weeks PICC line - pt consent obtained from on 05/22 Remains stable without any fever and or chills and no other signs of ongoing infection Will be discharged this afternoon with the recommendation as above Type 2 diabetes Hold home p.o. medications Insulin sliding scale Blood sugar remains controlled Mixed Alzheimer's and vascular dementia Monitor for delirium No acute confusion History of CAD On aspirin and Plavix and statin and Imdur and beta-ruth. Statin needs to be on hold if patient is placed on daptomycin. Denies any cardiac symptoms History of hypertension On Imdur, beta-ruth We will monitor History of paroxysmal atrial fibrillation On beta-ruth and aspirin Anticoagulation not recommended due to anemia and, possible GI bleeding and colon cancer and recurrent falls History of sinus node dysfunction s/p dual-chamber Medtronic pacemaker Stable History of colon cancer S/p partial colectomy History of depression On citalopram Diet: HH/DMII DVT prophylaxis: Heparin CODE STATUS full code if there is chance of recovery DispoCurrently awaiting [facility] at [facility]. Can be discharged to [facility] today Admission and Anticipated Discharge Date Admission Date: May 16, 2023 Subjective 05/25/2023 The patient was seen and examined in telemetry unit He has been feeling much better and denies any significant symptoms He is medically stable to be transferred Review of Systems Constitutional: All systems reviewed and are unremarkable except as noted below Physical Exam Physical Exam: Sitting on a chair without any acute distress Constitutional: well developed, well nourished and + obese; not ill appearing Eyes: PERRL, conjunctivae normal, anicteric sclerae ENMT: external ear and nose normal, oropharynx normal Neck: trachea midline, no thyromegaly Respiratory: no respiratory distress Auscultation: lungs clear to auscultation bilaterally Cardiovascular: Rate/Rhythm: regular rate and regular rhythm; not tachycardic Heart Sounds: normal S1, normal S2 and + murmur Extremities: + edema (Trace to 1+ edema bilaterally) Gastrointestinal (Abdomen): Inspection/Auscultation: normal bowel sounds; abdomen not distended Percussion/Palpation: abdomen soft; abdomen nontender Musculoskeletal: Has osteoarthritic changes in the joints but no acute arthritis in any Neurologic: normal touch/pain/proprioception and moves all extremities; no focal motor deficits Psychiatric: A+Ox3, euthymic affect Lymphatic: no cervical or axillary lymphadenopathy Results & Data Results & Data Vital Signs (Past 12 Hours) Vital Signs Temp Pulse Pulse Resp BP Pulse Ox O2 Del Method 05/25/23 11:12 36.5 C 64 20 155/87 H 94 Room Air 05/25/23 07:40 36.6 C 64 19 175/92 H 94 Room Air 05/25/23 06:47 60 05/25/23 03:02 36.6 C 60 16 166/84 H 93 Room Air Laboratory Results Short CBC 05/25/23 Range/Units 07:44 WBC 5.80 (4.8-10.8) K/ul Hgb 12.9 L (14.0-18.0) g/dl Hct 40.0 L (42.0-52.0) % Plt Count 167 (130-400) K/uL BMP 05/25/23 07:44 Sodium 142 Potassium 3.9 Chloride 110 H Carbon Dioxide 28 BUN 27 H Creatinine 0.89 Glucose 120 H Calcium 8.9 Medications Administered Current Inpatient Medications Acetaminophen (Acetaminophen 325 Mg Tab) 650 mg PO Q4H PRN PRN Reason: pain/fever Stop: 06/15/23 05:00 Last Admin: 05/19/23 20:30 Dose: 650 mg Aspirin (Aspirin 81 Mg Ectab) 81 mg PO DAILY [facility] Stop: 06/15/23 08:59 Last Admin: 05/25/23 08:18 Dose: 81 mg Atorvastatin Calcium (Atorvastatin 40 Mg Tab) 40 mg PO HS [facility] Stop: 06/15/23 20:59 Last Admin: 05/24/23 20:04 Dose: 40 mg Citalopram Hydrobromide (Citalopram 20 Mg Tab) 20 mg PO QAM [facility] Stop: 06/15/23 08:59 Last Admin: 05/25/23 08:18 Dose: 20 mg Clopidogrel Bisulfate (Clopidogrel Bisulfate 75 Mg Tab) 75 mg PO DAILY [facility] Stop: 06/15/23 08:59 Last Admin: 05/25/23 08:18 Dose: 75 mg Dextrose (Dextrose 50% 50 Ml Syringe) 25 - 50 ml IV UD PRN; Protocol PRN Reason: Hypoglycemia Protocol Stop: 06/15/23 05:00 Diclofenac Sodium (Diclofenac Sod 1% Gel 100 Gm Tube) 1 gm EXT BID [facility]O; Protocol Stop: 06/15/23 08:59 Last Admin: 05/25/23 08:18 Dose: 1 gm Donepezil HCl (Donepezil Hcl 10 Mg Tab) 10 mg PO DAILY [facility] Stop: 06/15/23 08:59 Last Admin: 05/25/23 08:18 Dose: 10 mg Gabapentin (Gabapentin 100 Mg Cap) 100 mg PO BID [facility] Stop: 06/15/23 08:59 Last Admin: 05/25/23 08:18 Dose: 100 mg Glucagon (Glucagon For Inj 1 Mg Vial) 1 mg SQ UD PRN; Protocol PRN Reason: Hypoglycemia Protocol Stop: 06/15/23 05:00 Glucose (Glucose 10 Tab/Tube) 4 - 8 tab PO UD PRN; Protocol PRN Reason: Hypoglycemia Treatment Stop: 06/15/23 05:00 Glucose (Glucose 40% Gel 15 Gm Tube) 15 - 30 gm PO UD PRN; Protocol PRN Reason: Hypoglycemia Protocol Stop: 06/15/23 05:00 Heparin Sodium (Beef Lung) (Heparin 10 Unit/Ml 5 Ml Flush) 5 ml FLUSH PRN PRN PRN Reason: Flush Stop: 06/22/23 09:07 Heparin Sodium (Porcine) (Heparin Sod 5,000 Unit/0.5 Ml Vial) 5,000 units SQ Q8 [facility] Stop: 06/16/23 13:59 Last Admin: 05/25/23 05:00 Dose: 5,000 units Vancomycin HCl 1,000 mg/ (Sodium Chloride) 270 mls @ 200 mls/hr IV Q12H [facility] Stop: 06/28/23 20:59 Insulin Aspart (Insulin Aspart Per Unit Charge) 0 units SC ACHS [facility] Stop: 06/15/23 07:29 Last Admin: 05/25/23 12:16 Dose: 15 units Insulin Glargine (Lantus Per Unit Charge) 22 units SC QAM [facility] Stop: 06/24/23 08:59 Last Admin: 05/25/23 08:25 Dose: 22 units Isosorbide Mononitrate (Isosorbide [facility] Extended Rel 30 Mg Tabcr) 30 mg PO DAILY [facility] Stop: 06/15/23 08:59 Last Admin: 05/25/23 08:18 Dose: 30 mg Melatonin (Melatonin 3 Mg Tab) 9 mg PO HS [facility] Stop: 06/15/23 20:59 Last Admin: 05/24/23 20:04 Dose: 9 mg Metoprolol Succinate (Metoprolol Succ 50mg Ext Rel Tab) 50 mg PO QAM [facility] Stop: 06/15/23 08:59 Last Admin: 05/25/23 08:18 Dose: 50 mg Miscellaneous (Carbohydrates For Hypoglycemia ) 15 - 30 gm PO UD PRN PRN Reason: Hypoglycemia Protocol Stop: 06/15/23 05:00 Miscellaneous Information (Vancomycin Consult Active) 1 each N/A UD PRN PRN Reason: Consult Stop: 06/15/23 13:18 Miscellaneous Information (Pharmacy Glycemic Mgmt Consult) 1 each N/A UD PRN; Protocol PRN Reason: Consult Stop: 06/17/23 08:01 Multivitamins (Multivitamin Tab) 1 tab PO DAILY [facility] Stop: 06/15/23 08:59 Last Admin: 05/25/23 08:18 Dose: 1 tab Olanzapine (Olanzapine 10 Mg/2.1 Ml Sdv) 2.5 mg IM Q4H PRN PRN Reason: Agitation Stop: 06/22/23 19:43 Polyethylene Glycol (Polyethylene (Miralax) 17 Gm Pack) 17 gm PO DAILY PRN PRN Reason: Constipation Stop: 06/15/23 05:00
--- NOTE | 2023-05-25 13:58 | Pharmacy Report ---
Pharmacy Glycemic Short Note 2 - Date of Service May 25, 2023 - Glycemic Short BSG Results (Last 24 hours): 05/24/23 05/24/23 05/25/23 16:31 20:24 07:44 Glucose 120 H POC Glucose 232 H 183 H 05/25/23 05/25/23 07:45 11:11 Glucose POC Glucose 95 177 H OUTPATIENT ANTIDIABETIC REGIMEN: * Semaglutide 7 mg PO QAM * Metformin 500mg PO BID * Empagloflozin 25mg PO QAM * A1c 8.6% 05/16/23 ASSESSMENT: 05/25/23 * Terrence received 62 units of insulin yesterday of which 25 units were basal * Fasting BSG this AM slightly below goal, decrease basal insulin by 10% * Mealtime BSGs tend to increase throughout the day, will tighten carbohydrate coverage slightly 05/22/23 * BSGs yesterday were [phone] mg/dL. Patient received 49 units of insulin (20 units of basal and 29 units of bolus). * Fasting today is 112 mg/dL- continue 20 units daily. * Tightened CR yesterday will continue today as lunch BSG trended upwards. 05/20/23 * Patient's BSGs yesterday were [phone] mg/dL. * Today's BSGs are 154-237 mg/dL. * Since fasting is rising, will start Lantus today. * Tighten CR since BSGs trended upwards. 05/19/23 * BSG at dinnertime yesterday was 377-528 mg/dL but serum glucose was 145 mg/dL. RN did not cover elevated BSG, only carbohydrates. The meter being used was removed from service for inspection. * BSG at bedtime was 140 mg/dL. * Today's BSGs are 112-158 mg/dL. * Continue Novolog. Hold Lantus as fasting within goal range. BACKGROUND * 88 year old male receiving IV Vancomycin for MRSA Bacteremia, was euglycemic yesterday and this morning had multiple high blood sugars on POC, yet venipuncture was 100mg/dl 30 min prior without eating in between. * Patient is fighting infection and A1c 8.6% on oral medications only at home. * Patient received a total of 9 units NovoLog insulin yesterday, blood sugars [phone]/dl. * I am hesitant to start basal insulin at this time, nursing to treat AM blood sugar based on lowest result, 248mg/dl to prevent error/hypoglycemia. * Will tighten CR at this time as blood sugars seem to rise with meals. * Add basal if BSGs continue to be elevated today/tomorrow fasting. * Blood sugar prior to lunch at goal down to 157mg/dl. PLAN FOR INPATIENT GLYCEMIC CONTROL: * Hold outpatient oral diabetes medications * Basal insulin * Lantus 22 units SQ daily * Bolus insulin * NovoLog per scale ACHS or Q6hrs while NPO * Goal Range: Low 110 mg/dL - High 140 mg/dL * Correction Factor: 20 mg/dL/unit * tighten: Nutritional / Prandial insulin per carb ratio of 1 unit per 4 grams CHO consumed
[2023-05-25] MEDS ORDERED: VANCOMYCIN HCL 1,000 MG in SODIUM CHLORIDE 0.9% 250 ML IV SCH (21:00)
--- NOTE | 2023-05-26 08:14 | Discharge Summary ---
Date of Service May 25, 2023 Admission HPI Per Admitting Provider 88-year-old male with past med significant for type 2 diabetes, hyperlipidemia, nontoxic multinodular goiter, paroxysmal atrial tachycardia, history of CAD, history of paroxysmal atrial fibrillation, sinus node dysfunction, hypertension, right bundle branch block, diastolic dysfunction, dilatation of aorta, mixed Alzheimer's and vascular dementia, chronic kidney disease stage III, osteoarthritis, iron deficiency anemia due to chronic blood loss, depression, history of prostate cancer, history of colon cancer s/p partial colectomy, history of sundown syndrome, history of frequent falls who lives at home with hi s ambulates with a walker was brought in the morning with a fall at home with a cut in the back of his head and imaging studies were okay and was discharged back home but as per after going home he could not get out from the car and was not able to climbs steps into the home when she called back EMS and was brought in here. As per no recent fevers. No nausea vomiting. No diarrhea or constipation. No complaints of chest pain or abdominal pain. He is regular diet. As per his he gets confused on and off. Currently patient is totally confused and could not get any history from the patient. Past medical history. As mentioned above Past surgical history. Colonoscopy. Dental surgery. EGD. Laparoscopic partial right colectomy. Radiation treatment. Cataract surgery. Right total hip revision surgery. Right shoulder surgery. Bilateral total hip replacements. Social history. . No smoking. Alcohol once in a while. No drug use. Family history. No significant family history in records. Admission Exam Per Admitting Provider Physical Exam: General- confused. Not in distress Head- atraumatic Eyes- PERRL. ENT- oropharynx clear Neck- supple, no JVD. Lungs- clear to auscultation . No wheezing or crackles. Heart- regular rhythm; no murmur, no gallop. Abdomen- normal bowel sounds, soft, nontender, no distension. Extremities- no pretibial edema, no erythema seen. Neuro- alert, awake, confused. ; PERRL, no facial palsy; no dysarthria; moves extremities. not obeying commands. Skin- warm & dry Principal Diagnosis Ambulatory dysfunction with fall, MRSA bacteremia, type 2 diabetes, mixed Alzheimer's dementia, hypertension, paroxysmal atrial fibrillation on no anticoagulation Discharge Exam Sitting on a chair without any acute distress Constitutional well developed, well nourished and + obese; not ill appearing Eyes PERRL, conjunctivae normal, anicteric sclerae ENMT external ear and nose normal, oropharynx normal Neck trachea midline, no thyromegaly Respiratory no respiratory distress Auscultation: lungs clear to auscultation bilaterally Cardiovascular Rate/Rhythm: regular rate and regular rhythm; not tachycardic Heart Sounds: normal S1, normal S2 and + murmur Extremities: + edema (Trace to 1+ edema bilaterally) Gastrointestinal (Abdomen) Inspection/Auscultation: normal bowel sounds; abdomen not distended Percussion/Palpation: abdomen soft; abdomen nontender Neurologic normal touch/pain/proprioception and moves all extremities; no focal motor deficits Psychiatric A+Ox3, euthymic affect Lymphatic no cervical or axillary lymphadenopathy Discharge Data Allergies Allergy/AdvReac Type Severity Reaction Status Date / Time hydrocodone AdvReac Intermediate MAKES PT Verified 05/15/23 22:52 HALLUCINATE meperidine AdvReac Intermediate psych Verified 05/15/23 22:52 complications oxycodone AdvReac Intermediate MAKES PT Verified 05/15/23 22:52 HALLUCINATES Consultations 05/15/23 22:14 ED Decision to Admit Stat 05/16/23 13:22 Consult Infectious Diseases Routine Hospital Course (1) Fall: 88-year-old male with past medical history significant for type 2 diabetes, hyperlipidemia, nontoxic multinodular goiter, paroxysmal atrial tachycardia, history of CAD, history of paroxysmal atrial fibrillation, sinus node dysfunction, hypertension, right bundle branch block, diastolic dysfunction, dilatation of aorta, mixed Alzheimer's and vascular dementia, chronic kidney disease stage III, osteoarthritis, iron deficiency anemia due to chronic blood loss, depression, history of prostate cancer, history of colon cancer s/p partial colectomy who was admitted with MRSA bacteremia. MRSA bacteremia Fall Weakness Ambulatory dysfunction Patient with multiple falls prior to admission. Had a fall a week prior to admission where he injured his right hand. Blood culture 1 of 4 grew MRSA Has a history of pacemaker placement. Repeat blood culture 05/18no growth after 48 hours Transthoracic echocardiogram done; no evidence of vegetation. ID consult, appreciate recs -At this time, continue with IV Vancomycin until 06/28 for 6 weeks of treatment -Check CBC w/ diff, BMP, and vanco trough weekly while on abx therapy -F/u w/ ID outpatient clinic w/in 3-5 weeks PICC line - pt consent obtained from on 05/22 Remains stable without any fever and or chills and no other signs of ongoing infection Will be discharged this afternoon with the recommendation as above Type 2 diabetes Hold home p.o. medications Insulin sliding scale Blood sugar remains controlled Mixed Alzheimer's and vascular dementia Monitor for delirium No acute confusion History of CAD On aspirin and Plavix and statin and Imdur and beta-ruth. Statin needs to be on hold if patient is placed on daptomycin. Denies any cardiac symptoms History of hypertension On Imdur, beta-ruth We will monitor History of paroxysmal atrial fibrillation On beta-ruth and aspirin Anticoagulation not recommended due to anemia and, possible GI bleeding and colon cancer and recurrent falls History of sinus node dysfunction s/p dual-chamber [employer] pacemaker Stable History of colon cancer S/p partial colectomy History of depression On citalopram Diet: HH/DMII DVT prophylaxis: Heparin CODE STATUS full code if there is chance of recovery [facility] be [facility] today Total Time Total Time Spent Total Time Spent (In Minutes): 40 minutes Discharge Plan Discharge Items Patient Disposition: Transfer Jail Fac Reason For Visit: FALL, AMBULATORY DYSFUNCTION, WEAKNESS Discharge Diagnosis: Ambulatory dysfunction with fall, MRSA bacteremia, type 2 diabetes, mixed Alzheimer's dementia, hypertension, paroxysmal atrial fibrillation on no anticoagulation Condition on Discharge: Fair Activity: As commented below Activity Comment: Needs help with ADLs Non-emergency contact: Primary Care Provider Call non-emergency contact if: you have any medication questions and your symptoms worsen Follow-up/Referrals: Victoria Saldana DO [Primary Care Provider] - Suha Khoury MD [Physician] - (Date & Time 06/30/2023 11:00 AM Provider Suha Khoury MD Department Infectious Disease [facility] ) Diet: Carb Consistent or DM2 Addtl Attending Provider Instructions: Please take precautions to avoid falls Use the course of antibiotic as advised: -At this time, continue with IV Vancomycin until 06/28 for 6 weeks of treatment -Check CBC w/ diff, BMP, and vanco trough weekly while on abx therapy -F/u w/ ID outpatient clinic w/in 3-5 weeks Please take your medications and keep appointments with your healthcare provider Pending Studies at Discharge: No Stand-Alone Forms: [facility] Skilled Items Patient informed of condition?: Yes DNR: No Discharge Level of Care: Skilled Communicable Disease: No Discharge Prognosis: Stable Lines: PICC Urinary Catheter: Yes Medications and DC Order Prescriptions: New vancomycin in 0.9 % sodium chl 1 gram/200 mL piggyback 1 g IV Q12H Rx Instructions: Continue until 06/28/2023 vancomycin 1,000 mg recon soln 1,000 mg IV Q12H Qty: 10 0RF Rx Instructions: Continue until 06/28/2023 Continued multivitamin Tablet 1 tab PO DAILY atorvastatin 40 mg tablet 40 mg PO HS omega-3 fatty acids 1,000 mg Capsule 1,000 mg PO DAILY loperamide 2 mg Capsule 2 mg PO DIRECTED metoprolol succinate 50 mg tablet extended release 24 hr 50 mg PO QAM donepezil 10 mg tablet 10 mg PO DAILY Rx Instructions: Take with largest meal of day isosorbide mononitrate 30 mg tablet extended release 24 hr 30 mg PO DAILY clopidogrel 75 mg tablet 75 mg PO DAILY aspirin 81 mg Tablet,Delayed Release (Dr/Ec) 81 mg PO DAILY citalopram 20 mg tablet 20 mg PO QAM meclizine 25 mg Tablet 25 mg PO DAILY PRN (Reason: dizzyness) gabapentin 100 mg capsule 100 mg PO BID metformin 500 mg tablet extended release 24 hr 500 mg PO BID biotin 5 mg Tablet 5 mg PO QAM diclofenac sodium 1 % gel 1 ea TOPICAL BID Rx Instructions: Apply to right knee melatonin 10 mg Tablet 10 mg PO HS empagliflozin 25 mg Tablet 25 mg PO DAILY Rybelsus 7 mg tablet 7 mg PO QAM Discharge Orders: Discharge Order (Routine); Ordered 05/25/23 Ordered By: Adrian Ordoñez Admission Data Admit Date/Time: 05/16/23 01:54 Attending Provider: Adrian Ordoñez Admit Provider: Maco Mathias Primary Care Provider: Victoria Saldana Other Providers: Cindi Lazo; Polo Thompson; Maco Mathias; Nicola Lucero; French Tripp; Tamir Mccray I.; James Bautista II; Sierra Carlos; Drew Zhu; Jay Bob; Suha Khoury Other Interventions: Discharge Summary Assessment (RN) Last Done: 05/25/23 13:46
[2023-05-27] MEDS ORDERED: VANCOMYCIN LEVEL ONE (08:00)
== END 2023-05-25 14:17 | DRG 872 ==
LOC: ED 20:01 → EDINP 05-16 01:54 → SUATTDRO 05-16 01:54 → 3E 05-16 09:36 → 2S 05-16 13:21

== ENCOUNTER 2023-07-31 01:27 | Inpatient (IN) ==
[2023-07-31 02:32] LABS: Basophils # (auto) 0.04 K/uL (0.00-0.20); Basophils % (auto) 0.3 %; Eosinophils # (auto) 0.02 K/uL (0.00-0.50); Eosinophils % (auto) 0.2 %; Hemoglobin 15.8 g/dl (14.0-18.0); Immature Granulocytes # (auto) 0.12 K/uL (0.01-0.20); Lymphocytes # (auto) 1.06 K/uL (1.20-3.40); Lymphocytes % (auto) 8.8 %; Mean Corpuscular Hemoglobin 29.6 pg (25.0-34.0); Mean Corpuscular Hgb Conc 32.2 g/dL (32.0-36.0); Mean Corpuscular Volume 91.8 fL (80.0-100.0); Mean Platelet Volume 10.5 fL (9.4-12.4); Monocytes # (auto) 0.75 K/uL (0.11-0.59); Monocytes % (auto) 6.2 %; Neutrophils # (auto) 10.12 K/uL (1.40-6.50); Neutrophils % (auto) 83.5 %; Platelet Count 176 K/uL (130-400); RDW Coefficient of Variation 14.5 % (11.5-14.5); RDW Standard Deviation 48.4 fL (36.4-46.3); Red Blood Count 5.34 M/uL (4.70-6.10); White Blood Count 12.11 K/ul (4.8-10.8)
[2023-07-31] MEDS ORDERED: OPTIRAY 320 500ml IV ONE (02:34)
[2023-07-31 02:49] LABS: Albumin Globulin Ratio 1.5 (0.9-2); Albumin Level 4.7 gm/dl (3.4-5.0); BUN Creatinine Ratio 28.8 (10-20); Bilirubin,Total 0.7 mg/dl (0.2-1.0); Calcium 9.7 mg/dl (8.6-10.3); Est GFR (African American) 59.2 ml/min; Est GFR (Non-African American) 51.1 ml/min; Globulin 3.1 gm/dl (2.5-4.0); Magnesium 2.2 mg/dl (1.7-2.4); Potassium 4.1 mmol/L (3.5-5.1); Total Protein 7.8 gm/dl (6.0-8.3)
--- NOTE | 2023-07-31 02:53 | Emergency Department Note ---
Impression & Plan Contusion of multiple sites, Fall, Dementia, Abrasions of multiple sites ED Provider Note ED Provider Note NAME: JOAQUIN MARISCAL AGE:88 SEX: Male : 1935 ARRIVES VIA: EMS INFORMANT: EMS, minimal from patient due to dementia ED PROVIDER(s): Vanessa Mustafa DO CHIEF COMPLAINT: Fall HPI: This is an 88-year-old male brought in by EMS after found him outside at the bottom of 6 steps. Patient states he fell but does not know how. Patient does have a history of dementia. He states he has no pain. Unknown if patient uses any antiplatelet or anticoagulation medication. PAST MEDICAL HISTORY:See Below PAST SURGICAL HISTORY:See Below FAMILY HISTORY:See Below SOCIAL HISTORY:See Below HOME MEDICATIONS:See Below ALLERGIES:See Below VITALS:See Below PHYSICAL EXAMINATION: GENERAL: alert, well appearing, well nourished, no distress, non-toxic HEAD: nc/at, no evidence of facial trauma EYE EXAM: normal conjunctiva, PERRL and EOM's grossly intact OROPHARYNX: no exudate, no erythema, lips, buccal mucosa, and tongue normal and mucous membranes are moist NECK: supple, no nuchal rigidity, no adenopathy, non-tender, FROM LUNGS: Clear to auscultation. Normal chest wall mechanics, no w/r/r HEART: no murmurs, S1 normal and S2 normal CHEST WALL: No crepitus, no step-off, nontender with palpation ABDOMEN: abdomen soft, non-tender, normo-active bowel sounds, no masses, no rebound or guarding. PELVIS: Stable to compression, nontender with palpation BACK: Back is symmetrical on inspection and there is no deformity, no midline tenderness, no CVA tenderness.No evidence of trauma. SKIN: no rashes, petechiae, orbruising UPPER EXTREMITIES: upper extremities are grossly normal. FROM, nml pulses b/l. Multiple abrasions and contusions noted to bilateral elbows, forearms, and hands LOWER EXTREMITIES: No pitting edema. FROM, nml pulses b/l. Multiple abrasions and contusions noted to bilateral knees and feet. NEURO EXAM: Normal sensorium, cranial nerves II-XII grossly intact, normal speech, no facial droop,nogross weakness of arms, no gross weakness of legs. Gross sensation intact. No ataxia. Vital Signs: reviewed and remarkable Differential Diagnosis: ICH, CHI, fracture, ligamentous injury, hemoperitoneum, contusion, abrasions, syncope, cva, as well as others were considered MEDICAL DECISION MAKING: This is an 88 yo male who presents after a fall from home. Patient with a hx of dementia. Patient with obvious UE and LE contusions and abrasions. Labs drawn and sent, IV established, EKG and xryas performed and interpreted at bedside, and patient placed on telemetry. He was sent for additional CT imaging. Extremities cleaned and dressed and did not appear to require further intervention. Patient unable to ambulate steadily here even with his walker. I discussed the case with his who feels she is unable to care for him at home at this time. Case discussed with hospitalist for additional evaluation. VS stable while in the ER. Consultation(s): 0550: Discussed with Dr. Thompson, [facility] hospitalist, for additional evaluation and mgmt. ER Treatment Provided: See below 0515: Attempted to contact , no answer and no voicemail set up. 0540: called back, test case developer from [facility] and aid came. She states he gets worse at evening with . Was having visual hallucinations last evening. Went outside in nothing but his diaper. He apparently tried to take his walker down the outside steps. Diagnostics Interpreted By Me: -ECG: Paced at 62, left axis, prolonged intervals consistent with pacing -Cardiac Monitoring: An order was placed for continuous cardiac monitoring. The monitor shows a rate of 60 with paced rhythm. -Laboratory studies: As stated above and show below. -Imaging studies: xr left elbow: no fx/dislocation xr right forearm: no fx/dislocation xr knee b/l: no fx/dislocation Triage Nursing Note Reviewed Prior/Outside Records Reviewed - prior DC summary reviewed Past Med/Surg History Medical History Diabetic neuropathy CAD (coronary artery disease) Diabetes mellitus, type 2 History of colon cancer 2017--sx/oral chemo History of prostate cancer 2013--sx/radiation History of deep vein thrombosis (DVT) of lower extremity right leg---no blood thinners Hearing deficit Depression Dementia Hypertension Hyperlipidemia Myocardial Infarction hx of NSTEMI in setting of sepsis July [address] segment elevation myocardial manage medically, occurring in the setting of acute sepsis secondary abdominal abscess following colon resection for colon cancer. Sleep apnea cpap Surgical History History of open reduction and internal fixation (ORIF) procedure right ankle--no hardware History of left shoulder replacement History of right shoulder replacement History of revision of total replacement of right hip joint History of total right hip replacement History of total left hip replacement History of colon resection [address] [facility] d/t cancer History of prostatectomy d/t cancer History of prostate biopsy malignant History of tooth extraction all teeth History of bilateral cataract extraction H/O colectomy S/P cataract surgery S/P hip replacement Family History Denies family history of Heart disease Social History Smoking Status: Never smoker Second Hand Exposure: No; Do You Dip or Chew Tobacco: No; Hx Alcohol Use: Yes Alcohol type: beer Alcohol Intake Frequency Comment: few times per week Hx Substance Use: No Preferred Language: Lao Communication Ability: Effective Quality Internship Required: No Beliefs That Will Affect Care: None marital status: Current Living Situation: Spouse Other Information That Helps Us Care for You: Yes ( unable to care for him at home due to fall risk) Feels Safe at Home: Yes Safety Concerns: Feels Safe At This Time Assistive Devices: CPAP and Walker Allergies Allergies Allergy/AdvReac Type Severity Reaction Status Date / Time hydrocodone AdvReac Intermediate MAKES PT Verified 06/30/23 10:19 HALLUCINATE meperidine AdvReac Intermediate psych Verified 07/31/23 02:06 complications oxycodone AdvReac Intermediate MAKES PT Verified 06/30/23 10:19 HALLUCINATES Home Meds Home Medications Medication Instructions Recorded Confirmed aspirin 81 mg tablet,delayed 81 mg PO QAM 05/15/23 07/31/23 release atorvastatin 40 mg tablet 40 mg PO HS 05/15/23 07/31/23 biotin 5 mg tablet 5 mg PO QAM 05/15/23 07/31/23 citalopram 20 mg tablet 20 mg PO QAM 05/15/23 07/31/23 clopidogrel 75 mg tablet 75 mg PO DAILY 05/15/23 07/31/23 donepezil 10 mg tablet 10 mg PO DAILY 05/15/23 07/31/23 empagliflozin 25 mg tablet 25 mg PO DAILY 05/15/23 07/31/23 gabapentin 100 mg capsule 100 mg PO BID 05/15/23 07/31/23 isosorbide mononitrate 30 mg 30 mg PO DAILY 05/15/23 07/31/23 tablet,extended release 24 hr loperamide 2 mg capsule 2 mg PO QAM 05/15/23 07/31/23 meclizine 25 mg tablet 25 mg PO DAILY PRN dizzyness 05/15/23 07/31/23 melatonin 10 mg tablet 10 mg PO HS 05/15/23 07/31/23 metformin 500 mg tablet,extended 500 mg PO BID 05/15/23 07/31/23 release 24 hr metoprolol succinate 50 mg 50 mg PO QAM 05/15/23 07/31/23 tablet,extended release 24 hr multivitamin 1 tab PO DAILY 05/15/23 07/31/23 omega-3 fatty acids 1,000 mg 1,000 mg PO DAILY 05/15/23 07/31/23 capsule semaglutide 7 mg tablet (Rybelsus) 7 mg PO QAM 05/15/23 07/31/23 Results & Data (ED) Vital Signs Vital Signs - 24 hr 07/31/23 01:32 07/31/23 01:44 07/31/23 03:20 Temperature 36.9 C Temperature Source Oral Pulse Rate 88 60 Pulse Rate [Finger] 66 Respiratory Rate 19 14 Respiratory Effort / Characteristics Non-Labored Non-Labored Spontaneous Respiratory Depth Normal Normal Blood Pressure 114/59 L Blood Pressure [Right Arm] 97/61 L Blood Pressure Mean 77 Blood Pressure Mean [Right Arm] 73 Pulse Oximetry 95 100 Oxygen Delivery Method Room Air Room Air Sepsis Recent Fever Within 48 Hours No Sepsis New/Unexplained Change in Mental Status No Sepsis Action Taken by Nursing No Action Required 07/31/23 05:00 07/31/23 05:43 Temperature Temperature Source Pulse Rate 62 Pulse Rate [Finger] 73 Respiratory Rate 20 Respiratory Effort / Characteristics Non-Labored Spontaneous Respiratory Depth Normal Blood Pressure Blood Pressure [Right Arm] 130/91 Blood Pressure Mean Blood Pressure Mean [Right Arm] 104 Pulse Oximetry 95 Oxygen Delivery Method Room Air Sepsis Recent Fever Within 48 Hours Sepsis New/Unexplained Change in Mental Status Sepsis Action Taken by Nursing Laboratory Data 08/01/23 05:36 08/01/23 05:36 Lab Results 07/31/23 07/31/23 Range/Units 02:16 02:18 WBC 12.11 H (4.8-10.8) K/ul RBC 5.34 (4.70-6.10) M/uL Hgb 15.8 (14.0-18.0) g/dl POC Hgb 16.7 (14.0-18.0) g/dl Hct 49.0 (42.0-52.0) % POC Hct 49 (42-52) % MCV 91.8 (80.0-100.0) fL MCH 29.6 (25.0-34.0) pg MCHC 32.2 (32.0-36.0) g/dL RDW Std Deviation 48.4 H (36.4-46.3) fL RDW Coeff of Imni 14.5 (11.5-14.5) % Plt Count 176 (130-400) K/uL MPV 10.5 (9.4-12.4) fL Immature Gran % (Auto) 1.0 % Neut % (Auto) 83.5 % Lymph % (Auto) 8.8 % Cherokee % (Auto) 6.2 % Eos % (Auto) 0.2 % Baso % (Auto) 0.3 % Neut # (Auto) 10.12 H (1.40-6.50) K/uL Lymph # (Auto) 1.06 L (1.20-3.40) K/uL Cherokee # (Auto) 0.75 H (0.11-0.59) K/uL Eos # (Auto) 0.02 (0.00-0.50) K/uL Baso # (Auto) 0.04 (0.00-0.20) K/uL Immature Gran # (Auto) 0.12 (0.01-0.20) K/uL PT 10.7 (9.0-12.0) Seconds INR 1.0 (0.9-1.1) POC Sodium 143 (135-144) mmol/L Sodium 141 (136-145) mmol/L POC Potassium 4.1 (3.3-5.0) mmol/L Potassium 4.1 (3.5-5.1) mmol/L POC Chloride 106 (101-112) mmol/L Chloride 105 (98-107) mmol/L Carbon Dioxide 26 (21-32) mmol/L POC Total CO2 26 (24-31) mmol/L Anion Gap 10 (3-11) POC Anion Gap 17.0 (16-25) mmol/L POC BUN 35 H (7-18) mg/dl BUN 36 H (6-23) mg/dl Creatinine 1.25 (0.6-1.4) mg/dl POC Creatinine 1.2 (0.6-1.3) mg/dl Est Cr Clr Drug Dosing 52.0 ml/min Est GFR ( Amer) 59.2 ml/min Est GFR (Non-Af Amer) 51.1 ml/min BUN/Creatinine Ratio 28.8 H (10-20) Glucose 150 H (70-99(Fasting)) mg/dl POC Glucose (other) 146 H (70-99) mg/dl Calcium 9.7 (8.6-10.3) mg/dl POC Ioniz Calcium Kourtney 1.08 L (1.12-1.32) mmol/l Magnesium 2.2 (1.7-2.4) mg/dl Total Bilirubin 0.7 (0.2-1.0) mg/dl AST 28 (13-39) U/L ALT 29 (7-52) U/L Alkaline Phosphatase 87 (34-104) U/L Total Creatine Kinase 87 (30-223) U/L Troponin I High Sens 18.2 (0-20) pg/ml Total Protein 7.8 (6.0-8.3) gm/dl Albumin 4.7 (3.4-5.0) gm/dl Globulin 3.1 (2.5-4.0) gm/dl Albumin/Globulin Ratio 1.5 (0.9-2) TSH 3.308 (0.300-4.500) uIu/ml Administered Medications Aspirin (Aspirin 81 Mg Ectab) 81 mg PO [facility] Stop: 08/31/23 08:59 Last Admin: 08/02/23 07:38 Dose: 81 mg Documented By: [id number] Admin: 08/01/23 08:55 Dose: 81 mg Documented By: [id number] Atorvastatin Calcium (Atorvastatin 40 Mg Tab) 40 mg PO [facility] Stop: 08/30/23 20:59 Last Admin: 08/01/23 20:34 Dose: 40 mg Documented By: Admin: 07/31/23 21:50 Dose: 40 mg Documented By: JOSE ALFREDO Citalopram Hydrobromide (Citalopram 20 Mg Tab) 20 mg PO QAM [facility] Stop: 08/30/23 08:59 Last Admin: 08/02/23 07:38 Dose: 20 mg Documented By: [id number] Admin: 08/01/23 08:56 Dose: 20 mg Documented By: [id number] Admin: 07/31/23 10:14 Dose: 20 mg Documented By: AICHA Clopidogrel Bisulfate (Clopidogrel Bisulfate 75 Mg Tab) 75 mg PO DAILY [facility] Stop: 08/31/23 08:59 Last Admin: 08/02/23 07:38 Dose: 75 mg Documented By: [id number] Admin: 08/01/23 08:55 Dose: 75 mg Documented By: [id number] Donepezil HCl (Donepezil Hcl 10 Mg Tab) 10 mg PO DAILY [facility] Stop: 08/30/23 08:59 Last Admin: 08/02/23 07:38 Dose: 10 mg Documented By: [id number] Admin: 08/01/23 08:56 Dose: 10 mg Documented By: [id number] Admin: 07/31/23 10:14 Dose: 10 mg Documented By: AICHA Gabapentin (Gabapentin 100 Mg Cap) 100 mg PO BID [facility] Stop: 08/30/23 08:59 Last Admin: 08/02/23 07:37 Dose: 100 mg Documented By: [id number] Admin: 08/01/23 20:34 Dose: 100 mg Documented By: Admin: 08/01/23 08:56 Dose: 100 mg Documented By: [id number] Admin: 07/31/23 21:51 Dose: 100 mg Documented By: JOSE ALFREDO Admin: 07/31/23 10:15 Dose: 100 mg Documented By: AICHA Insulin Aspart (Insulin Aspart Per Unit Charge) 0 units SC ACHS [facility]O Stop: 08/30/23 08:18 Last Admin: 08/02/23 09:07 Dose: 3 units Documented By: [id number] Co-signed By: ZELDA Admin: 08/01/23 20:28 Dose: Not Given Documented By: Admin: 08/01/23 18:31 Dose: 6 units Documented By: [id number] Co-signed By: JOB Admin: 08/01/23 13:10 Dose: 3 units Documented By: [id number] Co-signed By: JOB Admin: 08/01/23 08:54 Dose: 4 units Documented By: [id number] Co-signed By: JOB Admin: 07/31/23 22:05 Dose: 3 units Documented By: JOSE ALFREDO Co-signed By: [email or web address] Admin: 07/31/23 18:36 Dose: Not Given Documented By: JOSE ALFREDO Admin: 07/31/23 13:47 Dose: 6 units Documented By: WHITNEY Co-signed By: RODRICK Admin: 07/31/23 11:22 Dose: 2 units Documented By: RUDI Co-signed By: DAKOTA Insulin Glargine (Lantus Per Unit Charge) 5 units SQ DAILY [facility] Stop: 08/30/23 08:59 Last Admin: 08/02/23 09:06 Dose: 5 units Documented By: [id number] Co-signed By: ZELDA Admin: 08/01/23 08:55 Dose: 5 units Documented By: [id number] Co-signed By: JOB Admin: 07/31/23 10:43 Dose: 5 units Documented By: NORMA Co-signed By: AICHA Isosorbide Mononitrate (Isosorbide [place] Extended Rel 30 Mg Tabcr) 30 mg PO DAILY [facility]O Stop: 08/30/23 08:59 Last Admin: 08/02/23 07:38 Dose: 30 mg Documented By: [id number] Admin: 08/01/23 08:56 Dose: 30 mg Documented By: [id number] Admin: 07/31/23 10:15 Dose: 30 mg Documented By: AICHA Melatonin (Melatonin 3 Mg Tab) 9 mg PO HS [facility] Stop: 08/30/23 20:59 Last Admin: 08/01/23 20:34 Dose: 9 mg Documented By: Admin: 07/31/23 21:51 Dose: 9 mg Documented By: JOSE ALFREDO Metoprolol Succinate (Metoprolol Succ 50mg Ext Rel Tab) 50 mg PO QAM L[facility]O Stop: 08/30/23 08:59 Last Admin: 08/02/23 07:38 Dose: 50 mg Documented By: [id number] Admin: 08/01/23 08:56 Dose: 50 mg Documented By: [id number] Admin: 07/31/23 10:15 Dose: 50 mg Documented By: AICHA Miscellaneous (Semaglutide [Rybelsus] 7 Mg Tablet~Order Awaiting Action) 1 each N/A QS [facility] Stop: 08/30/23 15:59 Last Admin: 08/02/23 07:03 Dose: Not Given Documented By: [id number] Admin: 08/02/23 01:08 Dose: Not Given Documented By: [facility] Admin: 08/01/23 16:32 Dose: Not Given Documented By: [id number] Admin: 08/01/23 08:33 Dose: Not Given Documented By: [id number] Admin: 08/01/23 00:01 Dose: Not Given Documented By: [facility] Admin: 07/31/23 18:04 Dose: Not Given Documented By: JOSE ALFREDO Multivitamins (Multivitamin Tab) 1 tab PO DAILY [facility] Stop: 08/30/23 08:59 Last Admin: 08/02/23 07:38 Dose: 1 tab Documented By: [id number] Admin: 08/01/23 08:56 Dose: 1 tab Documented By: [id number] Admin: 07/31/23 10:14 Dose: 1 tab Documented By: AICHA Discontinued Medications Sodium Chloride (Nss) 1,000 mls @ 125 mls/hr IV .Q8H [facility] Stop: 08/30/23 02:59 Last Infusion: 07/31/23 11:44 Dose: Infused Documented By: Admin: 07/31/23 03:50 Dose: 125 mls/hr Documented By: ARACELI Sodium Chloride (Nss) 1,000 mls @ 60 mls/hr IV .[id number] ONE Stop: 07/31/23 23:17 Last Infusion: 07/31/23 22:42 Dose: Infused Documented By: Admin: 07/31/23 08:11 Dose: 60 mls/hr Documented By: NEFTALI Ioversol (Optiray 320 500ml) 100 ml IV ONCE ONE Stop: 07/31/23 02:35 Last Admin: 07/31/23 02:35 Dose: 83 ml Documented By: ELPIDIO Pneumococcal 20-Valent Conj Vacc (Pneumococcal Vaccine (Pcv20) 20-Linnea Conj-Dip Crm/Pf 0.5 Ml Syr) 0.5 ml IM .ONCE ONE Stop: 07/31/23 09:04 Last Admin: 08/01/23 13:09 Dose: 0.5 ml Documented By: [id number] Imaging Data Radiologist's Impression: Cervical Spine CT 07/31/23 02:04 Exam(s): CT C SPINE EXAM: CT Cervical Spine Without Intravenous Contrast CLINICAL HISTORY: Reason for exam: trauma. TECHNIQUE: Axial computed tomography images of the cervical spine without intravenous contrast. CTDI is 26.96 mGy and DLP is 515.99 mGy-cm. Automated exposure control was utilized for the study. A dose lowering technique was utilized adhering to the principles of ALARA. COMPARISON: 05/15/2023 FINDINGS: Vertebrae: Reversal of normal lordosis with a mild kyphosis of the upper cervical spine. Grade 1 anterolisthesis of C7 relative to T1. Otherwise alignment is maintained with preservation of vertebral body heights. No acute fracture. Discs/spinal canal/neural foramina: Multilevel degenerative disc disease at the C3-4 through C7-T1 with prominent anterior bony spurs. Moderate bony spinal canal stenosis at the C5-6 and C6-7 levels. Soft tissues: Unremarkable. IMPRESSION: No acute findings in the cervical spine. Electronically signed by: Mello Mueller M.D. 07/31/23 03:[address] 07/31/23 02:04 Exam(s): CT HEAD Without Contrast EXAM: CT Head Without Intravenous Contrast CLINICAL HISTORY: Reason for exam: trauma. TECHNIQUE: Axial computed tomography images of the head/brain without intravenous contrast. CTDI is 37.22 mGy and DLP is 624.41 mGy-cm. Automated exposure control was utilized for the study. A dose lowering technique was utilized adhering to the principles of ALARA. COMPARISON: 05/15/2023 FINDINGS: Brain: Mild periventricular white matter changes, likely related to microangiopathy. No hemorrhage. Ventricles: Unremarkable. No ventriculomegaly. Bones/joints: Unremarkable. No acute fracture. Soft tissues: Unremarkable. Sinuses: Unremarkable as visualized. No acute sinusitis. Mastoid air cells: Unremarkable as visualized. No mastoid effusion. IMPRESSION: No acute findings in the head/brain. Electronically signed by: Mello Mueller M.D. 07/31/23 03:02 AM Abdomen/Pelvis CT 07/31/23 02:21 Exam(s): CT ABDOMEN + PELVIS With Contrast IV Amt: 83 ML OPTIRAY 320 EXAM: CT Abdomen and Pelvis With Intravenous Contrast CLINICAL HISTORY: Reason for exam: trauma. TECHNIQUE: Axial computed tomography images of the abdomen and pelvis with intravenous contrast. CTDI is 28.14 mGy and DLP is 1584.26 mGy-cm. Automated exposure control was utilized for the study. A dose lowering technique was utilized adhering to the principles of ALARA. CONTRAST: Patient received 83 ML OPTIRAY 320 of IV contrast COMPARISON: 08/03/2017 FINDINGS: ABDOMEN: Liver: Unremarkable. No mass. Gallbladder and bile ducts: Unremarkable. No calcified stones. No ductal dilation. Pancreas: Unremarkable. No mass. No ductal dilation. Spleen: Unremarkable. No splenomegaly. Adrenals: Unremarkable. No mass. Kidneys and ureters: Unremarkable. No solid mass. No hydronephrosis. Stomach and bowel: Patient is status post right hemicolectomy. No obstruction. PELVIS: Appendix: See above. Bladder: Unremarkable. No mass. Reproductive: Unremarkable as visualized. ABDOMEN and PELVIS: Intraperitoneal space: Unremarkable. No free air. No significant fluid collection. Bones/joints: No acute fracture. No dislocation. Soft tissues: Unremarkable. Vasculature: Unremarkable. No abdominal aortic aneurysm. Lymph nodes: Unremarkable. No enlarged lymph nodes. IMPRESSION: No acute findings in the abdomen or pelvis. Electronically signed by: Mello Mueller M.D. 07/31/23 03:[address] 07/31/23 02:21 Exam(s): CT CHEST With Contrast IV Amt: 83 ML OPTIRAY 320 EXAM: CT Chest With Intravenous Contrast CLINICAL HISTORY: Reason for exam: trauma. TECHNIQUE: Axial computed tomography images of the chest with intravenous contrast. CTDI is 28.14 mGy and DLP is 993.24 mGy-cm. Automated exposure control was utilized for the study. A dose lowering technique was utilized adhering to the principles of ALARA. CONTRAST: Patient received 83 ML OPTIRAY 320 of IV contrast COMPARISON: 07/23/2015 FINDINGS: Lungs: Lungs demonstrate bilateral dependent atelectasis. No mass. Pleural space: Unremarkable. No pneumothorax. No significant effusion. Heart: Mild cardiomegaly. No significant pericardial effusion. No significant coronary artery calcifications. Bones/joints: Unremarkable. No acute fracture. No dislocation. Soft tissues: Unremarkable. Vasculature: Unremarkable. No thoracic aortic aneurysm. Lymph nodes: Unremarkable. No enlarged lymph nodes. IMPRESSION: No acute findings in the chest. Electronically signed by: Mello Mueller M.D. 07/31/23 03:17 AM Discharge Plan Visit Data Chief Complaint: Fall Stated Complaint: Fall down 6 steps, Abrasions to arms ED Provider: Vanessa Mustafa Discharge Problem: Contusion of multiple sites, Fall, Dementia, Abrasions of multiple sites Patient Disposition: Admitted As Inpatient Discharge Instructions Interventions: ED Discharge Assessment Last Done: 07/31/23 22:30
[2023-07-31 02:56] LABS: Troponin I High Sensitivity 18.2 pg/ml (0-20)
[2023-07-31] MEDS ORDERED: SODIUM CHLORIDE 0.9% 1,000 ML IV SCH (03:00)
--- NOTE | 2023-07-31 03:04 | CT Scan Report ---
Exam(s): CT HEAD Without Contrast EXAM: CT Head Without Intravenous Contrast CLINICAL HISTORY: Reason for exam: trauma. TECHNIQUE: Axial computed tomography images of the head/brain without intravenous contrast. CTDI is 37.22 mGy and DLP is 624.41 mGy-cm. Automated exposure control was utilized for the study. A dose lowering technique was utilized adhering to the principles of ALARA. COMPARISON: 05/15/2023 FINDINGS: Brain: Mild periventricular white matter changes, likely related to microangiopathy. No hemorrhage. Ventricles: Unremarkable. No ventriculomegaly. Bones/joints: Unremarkable. No acute fracture. Soft tissues: Unremarkable. Sinuses: Unremarkable as visualized. No acute sinusitis. Mastoid air cells: Unremarkable as visualized. No mastoid effusion. IMPRESSION: No acute findings in the head/brain. Electronically signed by: Mello Mueller M.D. 07/31/23 03:02 AM
--- NOTE | 2023-07-31 03:07 | CT Scan Report ---
Exam(s): CT C SPINE EXAM: CT Cervical Spine Without Intravenous Contrast CLINICAL HISTORY: Reason for exam: trauma. TECHNIQUE: Axial computed tomography images of the cervical spine without intravenous contrast. CTDI is 26.96 mGy and DLP is 515.99 mGy-cm. Automated exposure control was utilized for the study. A dose lowering technique was utilized adhering to the principles of ALARA. COMPARISON: 05/15/2023 FINDINGS: Vertebrae: Reversal of normal lordosis with a mild kyphosis of the upper cervical spine. Grade 1 anterolisthesis of C7 relative to T1. Otherwise alignment is maintained with preservation of vertebral body heights. No acute fracture. Discs/spinal canal/neural foramina: Multilevel degenerative disc disease at the C3-4 through C7-T1 with prominent anterior bony spurs. Moderate bony spinal canal stenosis at the C5-6 and C6-7 levels. Soft tissues: Unremarkable. IMPRESSION: No acute findings in the cervical spine. Electronically signed by: Mello Mueller M.D. 07/31/23 03:06 AM
[2023-07-31 03:08] LABS: Prothrombin Time 10.7 Seconds (9.0-12.0)
--- NOTE | 2023-07-31 03:18 | CT Scan Report ---
Exam(s): CT CHEST With Contrast IV Amt: 83 ML OPTIRAY 320 EXAM: CT Chest With Intravenous Contrast CLINICAL HISTORY: Reason for exam: trauma. TECHNIQUE: Axial computed tomography images of the chest with intravenous contrast. CTDI is 28.14 mGy and DLP is 993.24 mGy-cm. Automated exposure control was utilized for the study. A dose lowering technique was utilized adhering to the principles of ALARA. CONTRAST: Patient received 83 ML OPTIRAY 320 of IV contrast COMPARISON: 07/23/2015 FINDINGS: Lungs: Lungs demonstrate bilateral dependent atelectasis. No mass. Pleural space: Unremarkable. No pneumothorax. No significant effusion. Heart: Mild cardiomegaly. No significant pericardial effusion. No significant coronary artery calcifications. Bones/joints: Unremarkable. No acute fracture. No dislocation. Soft tissues: Unremarkable. Vasculature: Unremarkable. No thoracic aortic aneurysm. Lymph nodes: Unremarkable. No enlarged lymph nodes. IMPRESSION: No acute findings in the chest. Electronically signed by: Mello Mueller M.D. 07/31/23 03:17 AM
--- NOTE | 2023-07-31 03:22 | CT Scan Report ---
Exam(s): CT ABDOMEN + PELVIS With Contrast IV Amt: 83 ML OPTIRAY 320 EXAM: CT Abdomen and Pelvis With Intravenous Contrast CLINICAL HISTORY: Reason for exam: trauma. TECHNIQUE: Axial computed tomography images of the abdomen and pelvis with intravenous contrast. CTDI is 28.14 mGy and DLP is 1584.26 mGy-cm. Automated exposure control was utilized for the study. A dose lowering technique was utilized adhering to the principles of ALARA. CONTRAST: Patient received 83 ML OPTIRAY 320 of IV contrast COMPARISON: 08/03/2017 FINDINGS: ABDOMEN: Liver: Unremarkable. No mass. Gallbladder and bile ducts: Unremarkable. No calcified stones. No ductal dilation. Pancreas: Unremarkable. No mass. No ductal dilation. Spleen: Unremarkable. No splenomegaly. Adrenals: Unremarkable. No mass. Kidneys and ureters: Unremarkable. No solid mass. No hydronephrosis. Stomach and bowel: Patient is status post right hemicolectomy. No obstruction. PELVIS: Appendix: See above. Bladder: Unremarkable. No mass. Reproductive: Unremarkable as visualized. ABDOMEN and PELVIS: Intraperitoneal space: Unremarkable. No free air. No significant fluid collection. Bones/joints: No acute fracture. No dislocation. Soft tissues: Unremarkable. Vasculature: Unremarkable. No abdominal aortic aneurysm. Lymph nodes: Unremarkable. No enlarged lymph nodes. IMPRESSION: No acute findings in the abdomen or pelvis. Electronically signed by: Mello Mueller M.D. 07/31/23 03:21 AM
[2023-07-31] MEDS ORDERED: SODIUM CHLORIDE 0.9% 1,000 ML IV ONE (06:39)
--- NOTE | 2023-07-31 06:54 | History & Physical Report ---
Date of Service July 31, 2023 Assessment & Plan (1) AMS (altered mental status): Plan: History dementia Rule out UTI chronic diastolic heart failure (EF 60-65%, TTE 2022), patient euvolemic to dry hx CAD sp CABG SSS status post PPM, paced rhythm valvular heart disease (mild /MR/TR) hypertension, BP on the lower side hyperlipidemia, on statin Rx colon cancer status post surgery/incomplete chemotherapy prostate cancer status post radiation, currently in remission DM2 on oral medications, suboptimal control as of recent hemoglobin A1c of 8.6 last April 2023 past history DVT History of MRSA bacteremia status post Rx Multiple contusions/abrasions secondary to fall Medical telemetry Check UA Wound care for contusions/abrasions Hold antiplatelet Rx for now given some bleeding, resume if hemoglobin stable Palliative care consult to discuss goals of care as patient had expressed desire to reenroll patient in hospice PT OT eval Case management consult re: placement Basal bolus insulin, ISS BG goal 1 10-1 40, carb count coverage DVT prophylaxis. SCDs Re: contusions/abrasions DNR as per prior directives as per , Ms. Carlene Noyola. She requests updates from providers through [phone]. Text document was generated using Breeze voice recognition software. It may contain grammatical or spelling errors. Kindly contact undersigned for clarification of any documentation item in question. History of Present Illness Chief Complaint: I do not know as per patient Fall as per records Primary Care Provider: iVctoria Saldana, DO History obtained from patient, family, and records. Limited history from patient secondary to dementia. Medical history significant for chronic diastolic heart failure (EF 60-65%, TTE 2022), CAD sp CABG, SSS status post PPM, PAF, valvular heart disease (mild /MR/TR), hypertension, hyperlipidemia, colon cancer status post surgery/incomplete chemotherapy, prostate cancer status post radiation, DM2 on oral medications, past history DVT, dementia, history of MRSA bacteremia status post antibiotic Rx. Last confinement May 2023 for MRSA bacteremia and ambulatory dysfunction. Patient completed IV vancomycin Rx. Patient discharged from hospital to [facility] where patient stayed until end 2022. Patient not happy with care at SNF leading to discharge AGAINST MEDICAL ADVICE. Home visit from outpatient provider last week. expressed interest in restarting hospice if able. Patient previously on [facility] hospice care up until February 2023. finding it more difficult to care for patient the last couple of weeks. Patient found naked at the bottom of 6 steps at home today. Patient does not recall how things happened. Denies headache, chest pain, SOB, syncope, abdominal pain. Noted to have multiple abrasions and contusions over the upper extremities. Patient more confused than usual as per . Patient brought to the ER for evaluation. Medical History as above Surgical History : Partial colectomy, cataract surgeries, hip surgeries, right shoulder surgery Family History : Hypertension Personal/Social history : Non-smoker, occasional EtOH intake, retired [employer] Allergies Allergy/AdvReac Type Severity Reaction Status Date / Time hydrocodone AdvReac Intermediate MAKES PT Verified 06/30/23 10:19 HALLUCINATE meperidine AdvReac Intermediate psych Verified 07/31/23 02:06 complications oxycodone AdvReac Intermediate MAKES PT Verified 06/30/23 10:19 HALLUCINATES Home Medications Medication Instructions Recorded Confirmed Type aspirin 81 mg tablet,delayed 81 mg PO QAM 05/15/23 07/31/23 History release atorvastatin 40 mg tablet 40 mg PO HS 05/15/23 07/31/23 History biotin 5 mg tablet 5 mg PO QAM 05/15/23 07/31/23 History citalopram 20 mg tablet 20 mg PO QAM 05/15/23 07/31/23 History clopidogrel 75 mg tablet 75 mg PO DAILY 05/15/23 07/31/23 History donepezil 10 mg tablet 10 mg PO DAILY 05/15/23 07/31/23 History empagliflozin 25 mg tablet 25 mg PO DAILY 05/15/23 07/31/23 History gabapentin 100 mg capsule 100 mg PO BID 05/15/23 07/31/23 History isosorbide mononitrate 30 mg 30 mg PO DAILY 05/15/23 07/31/23 History tablet,extended release 24 hr loperamide 2 mg capsule 2 mg PO QAM 05/15/23 07/31/23 History meclizine 25 mg tablet 25 mg PO DAILY PRN dizzyness 05/15/23 07/31/23 History melatonin 10 mg tablet 10 mg PO HS 05/15/23 07/31/23 History metformin 500 mg tablet,extended 500 mg PO BID 05/15/23 07/31/23 History release 24 hr metoprolol succinate 50 mg 50 mg PO QAM 05/15/23 07/31/23 History tablet,extended release 24 hr multivitamin 1 tab PO DAILY 05/15/23 07/31/23 History omega-3 fatty acids 1,000 mg 1,000 mg PO DAILY 05/15/23 07/31/23 History capsule semaglutide 7 mg tablet (Rybelsus) 7 mg PO QAM 05/15/23 07/31/23 History Past Med/Surg History Medical History CAD (coronary artery disease) Dementia Depression Diabetes mellitus, type 2 Diabetic neuropathy Hearing deficit History of colon cancer 2017--sx/oral chemo History of deep vein thrombosis (DVT) of lower extremity right leg---no blood thinners History of prostate cancer 2013--sx/radiation Hyperlipidemia Hypertension Myocardial Infarction hx of NSTEMI in setting of sepsis July [address] segment elevation myocardial manage medically, occurring in the setting of acute sepsis secondary abdominal abscess following colon resection for colon cancer. Sleep apnea cpap Surgical History H/O colectomy History of bilateral cataract extraction History of colon resection 2017 @ [facility] – [place] d/t cancer History of left shoulder replacement History of open reduction and internal fixation (ORIF) procedure right ankle--no hardware History of prostate biopsy malignant History of prostatectomy d/t cancer History of revision of total replacement of right hip joint History of right shoulder replacement History of tooth extraction all teeth History of total left hip replacement History of total right hip replacement S/P cataract surgery S/P hip replacement Family History Denies family history of Heart disease Social History Smoking Status: Never smoker Second Hand Exposure: No; Do You Dip or Chew Tobacco: No; Hx Alcohol Use: Yes Alcohol type: beer Alcohol Intake Frequency Comment: few times per week Hx Substance Use: No Preferred Language: Brazilian Communication Ability: Effective Floral [employer] Specialist Required: No Beliefs That Will Affect Care: None marital status: Current Living Situation: Spouse Other Information That Helps Us Care for You: Yes ( unable to care for him at home due to fall risk) Feels Safe at Home: Yes Safety Concerns: Feels Safe At This Time Assistive Devices: Walker Review of Systems Review of Systems: Could not be reliably obtained secondary to dementia Physical Exam Physical Exam: GENERAL: Demented, pleasant, obese, slightly hard of hearing SKIN: Normal color, warm HEENT: Alopecia, oink palpebral conjunctivae, no ptosis, dry buccal mucosa NECK : Supple, no tenderness CHEST : Decreased breath sounds, expiratory wheezes, no tenderness HEART : RRR, systolic murmur ABDOMEN: Some distention, nontender EXTREMITIES : Contusions over upper extremities, minimal LE swelling, no LE tenderness NEUROLOGIC : Demented, no facial asymmetry, slightly hard of hearing, gait and stance not assessed Results & Data Results & Data Vital Signs (Past 12 Hours) Vital Signs Temp Pulse Pulse Resp BP BP Pulse Ox 07/31/23 05:43 62 07/31/23 05:00 73 20 130/91 95 07/31/23 03:20 66 14 97/61 L 100 07/31/23 01:44 60 07/31/23 01:32 36.9 C 88 19 114/59 L 95 O2 Del Method 07/31/23 05:43 07/31/23 05:00 Room Air 07/31/23 03:20 Room Air 07/31/23 01:44 07/31/23 01:32 Room Air Laboratory Results Laboratory Results WBC 12.11 K/ul (4.8-10.8) H 07/31/23 02:16 RBC 5.34 M/uL (4.70-6.10) 07/31/23 02:16 Hgb 15.8 g/dl (14.0-18.0) 07/31/23 02:16 Hct 49.0 % (42.0-52.0) 07/31/23 02:16 MCV 91.8 fL (80.0-100.0) 07/31/23 02:16 MCH 29.6 pg (25.0-34.0) 07/31/23 02:16 MCHC 32.2 g/dL (32.0-36.0) 07/31/23 02:16 RDW Std Deviation 48.4 fL (36.4-46.3) H 07/31/23 02:16 RDW Coeff of Mini 14.5 % (11.5-14.5) 07/31/23 02:16 Plt Count 176 K/uL (130-400) 07/31/23 02:16 MPV 10.5 fL (9.4-12.4) 07/31/23 02:16 Immature Gran % (Auto) 1.0 % 07/31/23 02:16 Neut % (Auto) 83.5 % 07/31/23 02:16 Lymph % (Auto) 8.8 % 07/31/23 02:16 Edmonson % (Auto) 6.2 % 07/31/23 02:16 Eos % (Auto) 0.2 % 07/31/23 02:16 Baso % (Auto) 0.3 % 07/31/23 02:16 Neut # (Auto) 10.12 K/uL (1.40-6.50) H 07/31/23 02:16 Lymph # (Auto) 1.06 K/uL (1.20-3.40) L 07/31/23 02:16 Edmonson # (Auto) 0.75 K/uL (0.11-0.59) H 07/31/23 02:16 Eos # (Auto) 0.02 K/uL (0.00-0.50) 07/31/23 02:16 Baso # (Auto) 0.04 K/uL (0.00-0.20) 07/31/23 02:16 Immature Gran # (Auto) 0.12 K/uL (0.01-0.20) 07/31/23 02:16 PT 10.7 Seconds (9.0-12.0) 07/31/23 02:16 INR 1.0 (0.9-1.1) 07/31/23 02:16 Sodium 141 mmol/L (136-145) 07/31/23 02:16 Potassium 4.1 mmol/L (3.5-5.1) 07/31/23 02:16 Chloride 105 mmol/L (98-107) 07/31/23 02:16 Carbon Dioxide 26 mmol/L (21-32) 07/31/23 02:16 Anion Gap 10 (3-11) 07/31/23 02:16 BUN 36 mg/dl (6-23) H 07/31/23 02:16 Creatinine 1.25 mg/dl (0.6-1.4) 07/31/23 02:16 Est Cr Clr Drug Dosing 52.0 ml/min 07/31/23 02:16 Est GFR ( Amer) 59.2 ml/min 07/31/23 02:16 Est GFR (Non-Af Amer) 51.1 ml/min 07/31/23 02:16 BUN/Creatinine Ratio 28.8 (10-20) H 07/31/23 02:16 Glucose 150 mg/dl (70-99(Fasting)) H 07/31/23 02:16 Calcium 9.7 mg/dl (8.6-10.3) 07/31/23 02:16 Magnesium 2.2 mg/dl (1.7-2.4) 07/31/23 02:16 Total Bilirubin 0.7 mg/dl (0.2-1.0) 07/31/23 02:16 AST 28 U/L (13-39) 07/31/23 02:16 ALT 29 U/L (7-52) 07/31/23 02:16 Alkaline Phosphatase 87 U/L (34-104) 07/31/23 02:16 Troponin I High Sens 18.2 pg/ml (0-20) 07/31/23 02:16 Total Protein 7.8 gm/dl (6.0-8.3) 07/31/23 02:16 Albumin 4.7 gm/dl (3.4-5.0) 07/31/23 02:16 Globulin 3.1 gm/dl (2.5-4.0) 07/31/23 02:16 Albumin/Globulin Ratio 1.5 (0.9-2) 07/31/23 02:[address] 07/31/23 02:04 Exam(s): CT C SPINE EXAM: CT Cervical Spine Without Intravenous Contrast CLINICAL HISTORY: Reason for exam: trauma. TECHNIQUE: Axial computed tomography images of the cervical spine without intravenous contrast. CTDI is 26.96 mGy and DLP is 515.99 mGy-cm. Automated exposure control was utilized for the study. A dose lowering technique was utilized adhering to the principles of ALARA. COMPARISON: 05/15/2023 FINDINGS: Vertebrae: Reversal of normal lordosis with a mild kyphosis of the upper cervical spine. Grade 1 anterolisthesis of C7 relative to T1. Otherwise alignment is maintained with preservation of vertebral body heights. No acute fracture. Discs/spinal canal/neural foramina: Multilevel degenerative disc disease at the C3-4 through C7-T1 with prominent anterior bony spurs. Moderate bony spinal canal stenosis at the C5-6 and C6-7 levels. Soft tissues: Unremarkable. IMPRESSION: No acute findings in the cervical spine. Electronically signed by: Mello Mueller M.D. 07/31/23 03:[address] 07/31/23 02:04 Exam(s): CT HEAD Without Contrast EXAM: CT Head Without Intravenous Contrast CLINICAL HISTORY: Reason for exam: trauma. TECHNIQUE: Axial computed tomography images of the head/brain without intravenous contrast. CTDI is 37.22 mGy and DLP is 624.41 mGy-cm. Automated exposure control was utilized for the study. A dose lowering technique was utilized adhering to the principles of ALARA. COMPARISON: 05/15/2023 FINDINGS: Brain: Mild periventricular white matter changes, likely related to microangiopathy. No hemorrhage. Ventricles: Unremarkable. No ventriculomegaly. Bones/joints: Unremarkable. No acute fracture. Soft tissues: Unremarkable. Sinuses: Unremarkable as visualized. No acute sinusitis. Mastoid air cells: Unremarkable as visualized. No mastoid effusion. IMPRESSION: No acute findings in the head/brain. Electronically signed by: Mello Mueller M.D. 07/31/23 03:02 AM Abdomen/Pelvis CT 07/31/23 02:21 Exam(s): CT ABDOMEN + PELVIS With Contrast IV Amt: 83 ML OPTIRAY 320 EXAM: CT Abdomen and Pelvis With Intravenous Contrast CLINICAL HISTORY: Reason for exam: trauma. TECHNIQUE: Axial computed tomography images of the abdomen and pelvis with intravenous contrast. CTDI is 28.14 mGy and DLP is 1584.26 mGy-cm. Automated exposure control was utilized for the study. A dose lowering technique was utilized adhering to the principles of ALARA. CONTRAST: Patient received 83 ML OPTIRAY 320 of IV contrast COMPARISON: 08/03/2017 FINDINGS: ABDOMEN: Liver: Unremarkable. No mass. Gallbladder and bile ducts: Unremarkable. No calcified stones. No ductal dilation. Pancreas: Unremarkable. No mass. No ductal dilation. Spleen: Unremarkable. No splenomegaly. Adrenals: Unremarkable. No mass. Kidneys and ureters: Unremarkable. No solid mass. No hydronephrosis. Stomach and bowel: Patient is status post right hemicolectomy. No obstruction. PELVIS: Appendix: See above. Bladder: Unremarkable. No mass. Reproductive: Unremarkable as visualized. ABDOMEN and PELVIS: Intraperitoneal space: Unremarkable. No free air. No significant fluid collection. Bones/joints: No acute fracture. No dislocation. Soft tissues: Unremarkable. Vasculature: Unremarkable. No abdominal aortic aneurysm. Lymph nodes: Unremarkable. No enlarged lymph nodes. IMPRESSION: No acute findings in the abdomen or pelvis. Electronically signed by: Mello Mueller M.D. 07/31/23 03:[address] 07/31/23 02:21 Exam(s): CT CHEST With Contrast IV Amt: 83 ML OPTIRAY 320 EXAM: CT Chest With Intravenous Contrast CLINICAL HISTORY: Reason for exam: trauma. TECHNIQUE: Axial computed tomography images of the chest with intravenous contrast. CTDI is 28.14 mGy and DLP is 993.24 mGy-cm. Automated exposure control was utilized for the study. A dose lowering technique was utilized adhering to the principles of ALARA. CONTRAST: Patient received 83 ML OPTIRAY 320 of IV contrast COMPARISON: 07/23/2015 FINDINGS: Lungs: Lungs demonstrate bilateral dependent atelectasis. No mass. Pleural space: Unremarkable. No pneumothorax. No significant effusion. Heart: Mild cardiomegaly. No significant pericardial effusion. No significant coronary artery calcifications. Bones/joints: Unremarkable. No acute fracture. No dislocation. Soft tissues: Unremarkable. Vasculature: Unremarkable. No thoracic aortic aneurysm. Lymph nodes: Unremarkable. No enlarged lymph nodes. IMPRESSION: No acute findings in the chest. Electronically signed by: Mello Mueller M.D. 07/31/23 03:17 AM Diagnostic Findings EKG as per my interpretation : Rate 60, paced rhythm
[2023-07-31] MEDS ORDERED: OLANZapine 10 MG/2.1 ML SDV IM PRN (07:08)
--- NOTE | 2023-07-31 07:21 | XRay Report ---
XR forearm RT 2V CLINICAL HISTORY: trauma COMPARISON: Right hand radiographs July 23, 2021. FINDINGS: There is no acute fracture within the right radius or ulna. No osseous lesions are identif ied. Moderate vascular calcification is incidentally noted. IMPRESSION: No acute fracture within the right radius or ulna. ACT 112: Negative or not required by law. Electronically signed by: David Rivera M.D. 07/31/2023 7:19 AM
--- NOTE | 2023-07-31 07:22 | XRay Report ---
XR elbow LT min 3V routine CLINICAL HISTORY: trauma COMPARISON: None FINDINGS: An IV within the left antecubital fossa is incidentally noted. There is no acute fracture within the left elbow. No evidence for a left elbow joint effusion. Chondrocalcinosis is noted. Mild osteoarthritis within the left elbow is present. IMPRESSION: No acute fracture. No evidence for a left elbow joint effusion. ACT 112: Negative or not required by law. Electronically signed by: David Rivera M.D. 07/31/2023 7:20 AM
--- NOTE | 2023-07-31 08:03 | XRay Report ---
SINGLE VIEW PELVIS CLINICAL HISTORY: Trauma. FINDINGS: 2 AP, portable, supine pelvic radiographs are compared to study dated 02/01/2014 and correla mike with pelvic CT performed the same day 07/31/2023. The skeletal structures are osteopenic. There is no radiographic evidence of acute fracture involving the hips or bony pelvis. Bilateral hip arthropl asties are in place. Degenerative change is noted in the sacroiliac joints. Lumbosacral spondylosis i s partially imaged. Metallic implants are noted in the prostate. Excreted IV contrast fills the bladd er. There are numerous pelvic phleboliths. IMPRESSION: No acute bony abnormality is identified. Electronically signed by: Adam Marie M.D. 07/31/2023 8:01 AM
--- NOTE | 2023-07-31 08:05 | XRay Report ---
SINGLE VIEW CHEST CLINICAL HISTORY: Trauma. FINDINGS: 2 AP, portable, upright chest radiographs are compared to study dated 06/02/2023 and correl ated with chest CT performed the same day 07/31/2023. The examination is degraded by portable techniqu e and patient rotation. A 2-lead cardiac pacemaker is unchanged in position. The heart is enlarged n oting atherosclerotic calcification of the thoracic aorta. The pulmonary vasculature is noncongested. Chronic interstitial thickening is similar to previous. Scarring/atelectasis is noted at the lung ba ses. The lungs and pleural spaces are otherwise clear. No pneumothorax is seen. The skeletal structur es are osteopenic. The bony thorax is grossly intact. A left shoulder arthroplasty is in place. IMPRESSION: 1. Cardiomegaly and cardiac pacemaker without radiographic evidence of congestive failure. 2. No airspace consolidation or large pleural effusion is identified. ACT 112: Negative or not required by law. Electronically signed by: Adam Marie M.D. 07/31/2023 8:03 AM
--- NOTE | 2023-07-31 08:06 | XRay Report ---
RIGHT KNEE 2 VIEWS CLINICAL HISTORY: Fall. FINDINGS: AP and crosstable lateral views of the right knee are compared to study dated 01/16/2022. Th e skeletal structures are osteopenic. No fracture is seen. There is moderate to advanced tricompartme ntal degenerative joint space narrowing, greatest in the medial and patellofemoral compartments. Ther e are marginal osteophytes and patellar enthesophytes. Chondrocalcinosis is noted in the medial and l ateral compartment. There is a small joint effusion. Prepatellar soft tissue swelling is observed. Th ere is advanced atherosclerotic calcification of the popliteal artery. IMPRESSION: 1. Soft tissue swelling and joint effusion with no fracture identified. 2. Osteopenia with degenerative change and chondrocalcinosis as above. Electronically signed by: Adam Marie M.D. 07/31/2023 8:05 AM
[2023-07-31] MEDS ORDERED: CARBOHYDRATES FOR HYPOGLYCEMIA PO PRN (08:19)
[2023-07-31] MEDS ORDERED: PROMETHAZINE HCL 6.25 MG in SODIUM CHLORIDE 0.9% 50 ML IV PRN (08:19)
[2023-07-31] MEDS ORDERED: DEXTROSE 50% 50 ML SYRINGE IV PRN (08:19)
[2023-07-31] MEDS ORDERED: GLUCOSE 10 TAB/TUBE PO PRN (08:19)
[2023-07-31] MEDS ORDERED: GLUCAGON FOR INJ 1 MG VIAL SQ PRN (08:19)
[2023-07-31] MEDS ORDERED: GLUCOSE 40% GEL 15 GM TUBE PO PRN (08:19)
--- NOTE | 2023-07-31 08:20 | XRay Report ---
LEFT KNEE 2 VIEWS CLINICAL HISTORY: Trauma. FINDINGS: AP and crosstable lateral views of the left knee are obtained. No prior studies are availab le for comparison at the time of dictation. The Skeletal structures are osteopenic. No fracture is se en. There is moderate to severe tricompartmental degenerative joint space narrowing, greatest in the medial compartment. There are marginal osteophytes and patellar enthesophytes. There is chondrocalcin osis in the medial and lateral compartments. A small joint effusion is noted. There is mild prepatell ar soft tissue swelling. Advanced atherosclerotic calcification is noted in the popliteal artery. IMPRESSION: 1. Soft tissue swelling and small joint effusion with no acute bony abnormality identified. 2. Osteopenia with degenerative change and chondrocalcinosis as above. Electronically signed by: Adam Marie M.D. 07/31/2023 8:18 AM
[2023-07-31] MEDS ORDERED: PNEUMOCOCCAL VACCINE (PCV20) 20-VAL CONJ-DIP CRM/PF 0.5 ML SYR IM ONE (09:03)
[2023-07-31 09:15] LABS: iSTAT Creatinine 1.2 mg/dl (0.6-1.3); iSTAT Hemoglobin 16.7 g/dl (14.0-18.0); iSTAT Ionized Calcium 1.08 mmol/l (1.12-1.32); iSTAT Potassium 4.1 mmol/L (3.3-5.0)
--- OUTSIDE RECORDS SUMMARY | 2023-07-31 09:18 | External Medical Summary | Summary of Care ---
Author Name Unknown Organization [facility] Address [address] [place] [address] Phone [phone] Care Team Providers Care Contract Driver Name Role Phone ShanaVictoria Ander MAYER Primary Care Provider [phone] Reason for Referral * Ancillary Services (Within 10 days (routine)) - Authorized Specialty Diagnoses / Procedures Referred By Palmer kline Referred To Contact HOME CARE / Palliative Medicine Diagnoses Mixed Alzheimer's and vascular dementia (HCC) Franki Medina PA-C [address] [place] [id number] Referral ID Status Reason Start Date Expiration Date Visits Requested Visits Authorized [id number] Authorized Ancillary Services Required 07/28/[phone] Question Answer Referral Priority Within 10 days (routine) Where should this appointment be scheduled? Rohit Encounter Details Date Type Department Care Team (Late st Contact Info) Description 07/23/2023 3:00 PM EST Home Visit [facility] at [facility] [address] [place] [phone] Franki Medina PA-C [address] [place] [phone] Mixed Alzheimer's and vascular dementia (HCC)*; Systolic congestive heart failure, unspecified HF chronicity (HCC); Stage 3 chronic kidney disease, unspecified whether stage 3a or 3b CKD (HCC); PAF (paroxysmal atrial fibrillation) (HCC); Peripheral vascular disease (HCC); Recurrent major depressive disorder, remission status unspecified (HCC); 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 0 Active Multiple Vitamins-Minerals (MULTIVITAL [place]) TABS Take by mouth. 0 Active Blood Glucose Monitoring Suppl (Gradient X) w/Device KITIndications:DM type 2 nursing care encounter ([facility]),Type 2 diabetes mellitus with hemoglobin A1c goal of less than 7.0% ([facility]),DM type 2 with diabetic peripheral neuropathy ([facility]) Use up to 4 times a day E11.9 1 Kit 0 07/04/2019 Active Glucose Blood (Gradient X) STRPIndications:DM type 2 nursing care encounter ([facility]),Type 2 diabetes mellitus with hemoglobin A1c goal of less than 7.0% ([facility]),DM type 2 with diabetic peripheral neuropathy ([facility]) Use up to 4 times a day E11.9 300 Strip 3 07/18/2019 Active Misc. DevicesIndications :Type 2 diabetes mellitus with hemoglobin A1c goal of less than 7.0% ([facility]),History of amputation of lesser toe of left foot (HCC),DM type 2 with diabetic peripheral neuropathy ([facility]) Please custom fit/dispense one pair diabetic accommodative shoes with 3 pairs heat molded accommodative inserts DM with neuropathy 1 Each 0 06/11/2020 Active Loperamide HCl 2 MG Oral Capsule (Imodium) Take 1 Capsule by mouth in the morning. 0 Active Meclizine HCl 25 MG Oral Tablet (Antivert) Take by mouth 1 Tablet daily as needed for Dizziness. 90 Tablet 0 09/11/2021 Active Melatonin 10 MG Oral Tablet Take 1 Tablet by mouth at bedtime. 0 05/05/2022 Active Codoon DelScalIT Lancets 30GIndications:DM type 2 with diabetic peripheral neuropathy ([facility]) Use to test blood sugars once daily 100 Each 3 05/05/2022 Active Biotin 5 MG Oral Capsule Take 1 Capsule by mouth in the morning. 30 Capsule 0 05/14/2022 Active Empagliflozin 25 MG Oral TabletIndications: Type 2 diabetes mellitus with hemoglobin A1c goal of less than 8.0% ([facility]),DM type 2 with diabetic peripheral neuropathy (HCC) Take 1 Tablet by mouth in the morning. (gets from community leader). 0 10/09/2022 Active Metoprolol Succinate ER 50 MG Oral Tablet Extended Release 24 Hour (toPROL XL) TAKE ONE TABLET BY MOUTH EVERY MORNING 100 Tablet 3 12/23/2022 4 Active Gabapentin 100 MG Oral Capsule (Neurontin)Indicat ions:Axonal sensorimotor neuropathy,Essenti al tremor TAKE ONE CAPSULE BY MOUTH TWICE A DAY 180 Capsule 2 10/31/2022 4 Active metFORMIN HCl ER 500 MG Oral Tablet Extended Release 24 Hour (Glucophage XR) TAKE ONE TABLET BY MOUTH TWICE A DAY 200 Tablet 3 10/09/2022 4 Active Isosorbide Mononitrate ER 30 MG Oral Tablet Extended Release 24 Hour (Imdur)Indications :Paroxysmal atrial tachycardia TAKE ONE TABLET BY MOUTH EVERY DAY 90 Tablet 3 02/10/2023 4 Active Clopidogrel Bisulfate 75 MG Oral Tablet (pLAVix)Indication s:Paroxysmal atrial tachycardia TAKE ONE TABLET BY MOUTH EVERY DAY 90 Tablet 3 02/10/2023 4 Active Donepezil HCl 10 MG Oral Tablet (Aricept) TAKE ONE TABLET BY MOUTH EVERY DAY WITH LARGEST MEAL OF THE DAY 90 Tablet 1 02/13/2023 Active Citalopram Hydrobromide 20 MG Oral Tablet (CeleXA)Indication s:Adjustment disorder with depressed mood TAKE ONE TABLET BY MOUTH EVERY DAY IN THE MORNING 90 Tablet 2 02/11/2023 Active oxygen IN GASIndications:Isc hemic cardiomyopathy,PAF (paroxysmal atrial fibrillation) ([facility]),Hypoxia Administer 2 L/min(Oxygen) into nostril as needed for Other (with activity). 1 Each 0 03/24/2023 Active Semaglutide 7 MG Oral Tablet (Rybelsus) Take 7 mg by mouth daily first thing in the morning. 30 Tablet 0 06/01/2023 Active Atorvastatin Calcium 40 MG Oral Tablet (Lipitor) TAKE ONE TABLET BY MOUTH AT BEDTIME 100 Tablet 3 06/30/2023 Active documented as of this encounter (statuses as of 07/28/2023) Active Problems Problem Noted Date Diagnosed Date Stage 3 chronic kidney disease 07/28/2023 Systolic congestive heart failure 07/28/2023 Last Assessment & Plan: "RED FLAG" HF Symptoms: NO IDENTIFIED SYMPTOMS Medication Regimen: Beta Seymour Therapy: Metoprolol Succinate (ER) BERENICE Inhibitor/ARB Therapy: No BERENICE/ARB/ARNI secondary to: unknown, was previously on losartan Diuretic therapy: No diuretic secondary to unknown SGLT2 Inhibitor: empagliflozin (ex. Jardiance) Remote Patient Monitoring Vendor: No Connected RPM Device(s): No current devices Self - Management Plan Other/Additional Comments: contact [facility]ALTH [facility] for directions Exacerbation Plan Other/Additional Comments: comfort based care Additional Comments: Treat symptoms only, prefers comfort care Recurrent major depressive disorder 07/28/2023 Last Assessment & Plan: Mood stable on current dose of celexa Peripheral vascular disease 07/28/2023 Late onset Alzheimer's disea se without behavioral disturbance 08/11/2022 Last Assessment & Plan: -patient recently discharged from hospice -continue Aricept -has good family support Current mild episode of milagros r depressive disorder without prior episode 08/11/2022 Aortic root dilatation 08/11/2022 At risk for falls 03/30/2022 Last Assessment & Plan: Use walker with ambulation. Home PT continues Primary osteoarthritis of both knees 02/18/2022 Last Assessment & Plan: Advised max dose aleve is 500mg BID--would not advise use at this time since he has history GI ulcer and med hard on kidneys. He is not having significant pain. Advised to use tylenol 1000mg BID instead. If pt complains of pain despite this dosing, they should call HEALTH SYSTEM. Open wound of second toe of left foot 10/11/2021 Last Assessment & Plan: 86-year-old diabetic male with open wounds on the 2nd and 3rd left toe needing home health wound care to ensure that he has proper healing. There is some noted drainage from these wounds. Plan: I will place a home health referral for wound care to [facility] home health. My recommendations are to cleanse the wounds with a mild soap and water daily, dab dry, apply Aquacel Ag, double dry dressing secured with curlex Open wound of third toe of left foot 10/11/2021 Last Assessment & Plan: 86-year-old diabetic male with open wounds on the 2nd and 3rd left toe needing home health wound care to ensure that he has proper healing. There is some noted drainage from these wounds. Plan: I will place a home health referral for wound care to [facility] home health. My recommendations are to cleanse the wounds with a mild soap and water daily, dab dry, apply Aquacel Ag, double dry dressing secured with curlex PAF (paroxysmal atrial fibrillation) 10/01/2021 Last Assessment & Plan: Continue metoprolol Anticoagulation not recommended due to anemia, past GI bleeding/colon cancer, and recurrent falls Sinus node dysfunction 10/01/2021 Last Assessment & Plan: status post September 13, 2019 dual-chamber [employer] pacemaker Mixed Alzheimer's and vascular dementia 10/02/19 Last Assessment & Plan: Continues aricept Fast stage [address]e [address] hospice referral as requested by family Was previously with [facility] 06/2022-02/2023 Falls frequently 10/01/2021 Last Assessment & Plan: Pt/ would benefit from additional personal care assistance in the home, seems a bit overwhelmed. However, does not qualify financially for waiver and refuses to pay for personal care assistance in the home. She reports she is with him 09/02 and if not her neighbors will check on him or come over. Pt using walker but sitting on seat and pushing self around. W/c discussed and refused. They are willing for another home PT consult, referral placed. Fall at home 09/10/2021 Last Assessment & Plan: 86-year-old male who is on [facility] standby reported falling yesterday after getting dizzy and losing his balance. No reported head trauma and does notice small laceration on his arm. Patient does have PT OT coming into the home. Patient is to see the PCP tomorrow. Last noted fall was in July of 2020 and which the patient did go to the ED in the findings were very similar. Recommendations: Advised patient to use his Rollator walker at all times even when he does not think he needs it. Advice patient to take a few moments to get his balance when changing positions. For his Continue PT OT the Chronic kidney disease, stage 3a 01/28/2021 Overview: Per CKD protocol Current moderate episode of major depressive disorder without prior episode 09/11/2020 Nontoxic multinodular goiter 09/11/2020 Coronary artery disease invo lving [place] coronary artery of [place] heart without angina pectoris 08/09/2019 Last Assessment & Plan: No angina -continue isosorbide, toprol, atorvastatin ASA, plavix Major depressive disorder, single episode, unspe cified 08/09/2019 Last Assessment & Plan: Stable continue citalopram Dilation of aorta 08/09/2019 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 t 08/09/2019 Last Assessment & Plan: Reported d/t hammer toe Ischemic cardiomyopathy 05/05/2018 Coronary artery disease invo lving [place] coronary artery of [place] heart with angina pectoris 05/05/2018 Overview: July 2017 NSTEMI manage medically, occurring in the setting of acute sepsis secondary abdominal abscess following colon resection for colon cancer. August 2019 NSTEMI Status post September 02, 2019 PCI of the RCA and obtuse marginal branch with drug-eluting stents. Residual 60% proximal LAD stenosis Last Assessment & Plan: Continue plavix and statin Obesity, Class I, BMI 30.0-34.9 (see actual BMI) 05/05/2018 History of non-ST elevation myocardial infarctio n (NSTEMI) 11/04/2017 DM type 2 with diabetic peripheral neuropathy Last Assessment & Plan: -continue Jardiance 25mg daily -continue Rybelsus 3mg daily -continue metformin 500mg BID -last A1c 9.3 "RED FLAG" Diabetic symptoms: Generalized Weakness Goal HgbA1c Symptom Management Only Diabetic Complications Neurologic (example: Peripheral Neuropathy) Medication Regimen Metformin GLP-1 Agonist (ex: Victoza, Trulicity, Ozempic) SGLT (ex: Jardiance) DM Secondary Prevention Moderate-High Intensity Statin History of malignant neoplasm of colon 8 Cancer Staging:Clinical: Unsigned Pathologic:Stage IIC(pT4b, pN0, cM0) - Signed by Hari Mueller MD on 11/18/2017 Overview: Ascending and transverse Last Assessment & Plan: Followed by oncology, observation Iron deficiency anemia due to chronic blood loss 09/14/2017 Paroxysmal atrial tachycardia 08/27/2017 SunDown syndrome 08/27/2017 S/P partial colectomy 07/28/2017 History of prostate cancer 07/06/2017 Last Assessment & Plan: Followed by oncology Diastolic dysfunction 06/23/2017 Adjustment disorder with depressed mood 08/01/19 17 Essential hypertension with goal blood pressure less than 140/90 08/01/2016 Last Assessment & Plan: BP at goal -continue treatment noted above Dyslipidemia, goal LDL below 70 08/01/2016 Right bundle branch block 08/01/2016 documented as of this encounter (statuses as of 07/28/2023) Resolved Problems Problem Noted Date Diagnosed Date Resolved Date Hypertensive heart disease w ith chronic diastolic congestive heart failure 05/05/202207/01 Colon adenocarcinoma 10/01/2021 022 Non-ST elevation (NSTEMI) my ocardial infarction 09/09/2019 03/05/2020 Late onset Alzheimer's disea se without behavioral disturbance 06/20/2019 07/01/2022 Last Assessment & Plan: Stable today. supportive. Continues aricept. Late onset Alzheimer's disea se with behavioral disturbance 05/09/2019 08/05/2019 Overview: history Type 2 diabetes mellitus wit h hemoglobin A1c goal of less than 8.0% 11/03/2018 07/01/2022 Last Assessment & Plan: Last hgbA1c 8.7% on 10/23/21 -due for repeat hgbA1c soon. -continue metformin, Jardiance Cancer of overlapping sites of colon 11/03/2018 06/15/2019 Overview: history Malignant neoplasm of small intestine 05/05/2018 11/03/2018 Secondary adenocarcinoma of small intestine 05/05/2018 05/05/2018 Primary malignant neoplasm o f transverse colon 05/05/2018 08/05/2019 Acquired absence of other left toe(s) 11/04/2017 09/04/2020 Overview: duplicate NSTEMI (non-ST elevation jojo cardial infarction) 08/27/2017 11/04/2017 Personal history of colon cancer 08/27/2017 05/05/2018 Abdominal fluid collection 08/10/2017 0 11/04/2017 Altered mental status 08/04/20172017 NSTEMI (non-ST elevated myoc ardial infarction) 08/04/2017 08/27/2017 Malignant neoplasm of hepatic flexure 07/28/2017 08/27/2017 Colon cancer 07/22/2017 07/28/2017 Lower GI bleed 07/06/2017 08/27/2017 Heme positive stool 06/23/2017 07/06/20 17 Anemia, blood loss 06/23/2017 8 Transfusion history 06/23/2017 11/05/19 18 Need for shingles vaccine 08/06/2016 Postural dizziness with presyncope 08/01/2016 05/27/2017 Type 2 diabetes mellitus wit h hemoglobin A1c goal of less than 7.0% 08/01/2016 11/03/2018 Severe obesity with body mas s index (BMI) of 35.0 to 39.9 with serious comorbidity 08/01/2016 Overview: bmi= 35.71 08/01/16 ICD-10 update of inactive diagnosis Prostate cancer 07/20/2015 07/06/2017 ADVANCE DIRECTIVE INFORMATION 11/20/2004 05/27/2017 Overview: refused info documented as of this encounter (statuses as of 07/28/2023) Immunizations Name Administration Dates Next Due COVID-19 mRNA, LNP-s, No Pre serve, 2-Dose Series (Pfizer) 10/27/2020,10/06/2020 COVID-19, LNP-s, No Preserve , Ilan-sucrose, Ages 12+ (Pfizer) 01/23/2022 Pneumococcal Conjugate Vacc, 13 Valent (Prevnar) 05/27/2017,01/29/2016 Pneumococcal Polysaccharide PPV23 (Pneumovax) 06/17/2018 Season Influenza, Quad, PF, Adjuvanted, 65+ Yrs, IM (FLUAD) 05/11/2020 Seasonal Influenza, PF, 6 M & above, IM , (FluLaval or Fluzone) 05/20/2020,04/11/2019,04/13/2018 Seasonal Influenza, Quadriva lent Hd (Fluzone Hd) 03/24/2023,03/31/2022,05/04/2021 Seasonal Influenza, Split, I IV3, With Preserve, Inj 03/28/2017,05/03/2016 TDAP (age 10 and older)(Boostrix) 06/03/2018 Zoster Vaccine Recombinant (Shingrix) 07/25/2020 ,05/11/2020 documented as of this encounter Social History Tobacco Use Types Packs/Day Years Used Date Smoking Tobacco: Never Passive Smoke Exposure: Past Smokeless Tobacco: Former Chew Alcohol Use Standard Drinks/Week Comments Yes 0 (1 standard drink = 0.6 oz pur e alcohol) once in awhile PHQ-2 Answer Date Recorded PHQ Adult Total Score 0 03/24/2023 Hunger Vital Sign Answer Date Recorded Within the past 12 months, y ou worried that your food would run out before you got the money to buy more. Never true 03/24/20 23 Within the past 12 months, t he food you bought just didn't last and you didn't have money to get more. Never true 03/24/2023 Sex and Gender Information Value Date Recorded Sex Assigned at Male 09/22/2022 2:39 PM EST Gender Identity Male 09/22/2022 2:39 PM EST Sexual Orientation Straight 09/09/2019 12 :36 PM EST Job Start Date Occupation Industry Not on file Not on file Not on file documented as of this encounter Last Filed Vital Signs Vital Sign Reading Time Taken Comments Blood Pressure 118/68 07/23/2023 11:44 AM EST Pulse 68 07/23/2023 11:44 AM EST Temperature - - Respiratory Rate - - Oxygen Saturation 95% 07/23/2023 11:44 AM EST Inhaled Oxygen Concentration - - Weight - - Height - - Body Mass Index - - documented in this encounter Functional Status Functional Status Response Date of Assess ment Are you deaf or do you have serious difficulty h earing? No 08/04/2017 Are you blind or do you have serious difficulty seeing, even when wearing glasses? No 08/04/2017 Do you have serious difficul ty walking or climbing stairs? (5 years old or older) Yes 08/04/2017 Do you have difficulty dress ing or bathing? (5 years old or older) No 08/04/2017 Because of a physical, menta l, or emotional condition, do you have difficulty doing errands alone such as visiting a doctor s office or shopping? (15 years old or older) Yes 08/04/19 18 Cognitive Status Response Date of Assessm ent Because of a physical, menta l, or emotional condition, do you have serious difficulty concentrating, remembering, or making decisions? (5 years old or older) No 08/04/2017 documented as of this encounter Progress Notes * Franki Medina PA-C - 07/23/2023 11:01 AM EST Images from the original note were not included. [facility] Problem Oriented Charting Provider Visit Date: 07/23/2023 Time: 11:02 AM [facility] Sub-Program: Focused Care Management (3-9 months) [facility] Episode Start Date: No linked episodes Assessment and Plan #1 Mixed Alzheimer's and vascular dementia (HCC) (Primary) Assessment & Plan: Continues aricept Fast stage [address] hospice referral as requested by family Was previously with [facility] 06/2022-02/2023 #2 Systolic congestive heart failure, unspecified HF chronicity (HCC) Assessment & Plan: "RED FLAG" HF Symptoms: NO IDENTIFIED SYMPTOMS Medication Regimen: Beta Seymour Therapy: Metoprolol Succinate (ER) BERENICE Inhibitor/ARB Therapy: No BERENICE/ARB/ARNI secondary to: unknown, was previously on losartan Diuretic therapy: No diuretic secondary to unknown SGLT2 Inhibitor: empagliflozin (ex. Jardiance) Remote Patient Monitoring Vendor: No Connected RPM Device(s): No current devices Self - Management Plan Other/Additional Comments: contact [facility] for directions Exacerbation Plan Other/Additional Comments: comfort based care Additional Comments: Treat symptoms only, prefers comfort care #3 Stage 3 chronic kidney disease, unspecified whether stage 3a or 3b CKD ([facility]) #4 PAF (paroxysmal atrial fibrillation) ([facility]) Assessment & Plan: Continue metoprolol Anticoagulation not recommended due to anemia, past GI bleeding/colon cancer, and recurrent falls #5 Peripheral vascular disease ([facility]) #6 Recurrent major depressive disorder, remission status unspecified ([facility]) Assessment & Plan: Mood stable on current dose of celexa #7 History of partial amputation of toe of left foot ([facility]) #8 Coronary artery disease involving [place] coronary artery of [place] heart with angina pectoris ([facility]) Overview: July 2017 NSTEMI manage medically, occurring in the setting of acute sepsis secondary abdominal abscess following colon resection for colon cancer. August 2019 NSTEMI Status post September 02, 2019 PCI of the RCA and obtuse marginal branch with drug-eluting stents. Residual 60% proximal LAD stenosis Assessment & Plan: Continue plavix and statin Additional Medical Decision Makin/28-05/25/23 - [facility] - bacteremia, d/c on IV abx with PICC, d/c to [facility] 05/25-07/19/23 - [facility] Patient was removed from SNF AMA States that she received a large bill and was unhappy with the care provided during his stay Per notes, OOA and protective services has been notified states that plan was for him to complete IV antibiotics and then return to home At this time states she has 15 hours/week caregivers in the home but is going to be reassessed to see if he qualifies form more hours Currently has all medications needed Patient was previously on hospice, but was discharged as he remained stable (06/2022-02/2023 [facility]) Spouse interested in restarting hospice if able Previous POLST reviewed, DNR, DNI Spouse (Carlene) identified as HCPOA per scanned documents Scheduled appointments in the next 60 days: Future Appointments-next 60 days Date/Time Provider Specialty Dept Phone 07/23/2023 3:00 PM Franki Medina PA-C [facility] [phone] 07/28/2023 1:00 PM (Arrive by 12:45 PM) College, Pharmacist [facility] [phone] 07/28/2023 1:40 PM (Arrive by 1:25 PM) Victoria Saldana DO Family Medicine [phone] 08/06/2023 11:00 AM (Arrive by 10:40 AM) Tamir Mccray MD Infectious Disease [phone] 09/29/2023 12:30 PM (Arrive by 12:15 PM) Neela Brunner CRNP Sleep Disorders [phone] 09/30/2023 1:30 PM (Arrive by 1:15 PM) Tess Riddle PA-C Cardiology [phone] A total of 30 minutes was spent face to face (via video-based telemedicine if designated as a telemedicine visit) Subjective Subjective Is this a Telemedicine Visit? No, this is an Home Visit. Reason For [facility] Visit: Follow-Up Current Concerns: Terrence Noyola is a 88 year old male seen today for a [facility] provider visit. Today's concerns are: Patient requires assistance with all ADLs Spouse is primary caregiver Has additional 15hours/week provided via waiver Neighbors help if needed Previously has hospice and was satisfied with services, would like to restart Since returning home, patient had 1 fall at bedside, no injuries reported Remains weak overall. Unable if he will be able to do steps to leave the home for appts He denies any pain, sob ROS limited by dementia Ongoing urinary/fecal incontinence Using pullups and incontinence pads on bed and furniture Using CPAP at [facility] pr[facility] during the day, although has not needed recently Additional Objective Objective Vitals: 07/23/23 1144 Pulse: 68 SpO2: 95% BP: 118/68 Last Weights: Wt Readings from Last 3 Encounters: 04/01/23 105.6 kg (232 lb 12 oz) 03/26/23 106.6 kg (235 lb) 03/24/23 106.7 kg (235 lb 3.2 oz) Last BPs: BP Readings from Last 4 Encounters: 07/23/23 118/68 04/15/23 120/80 04/09/23 90/52 04/01/23 108/64 General: alert and no distress Neuro: alert & oriented x 1 with limited speech, no focal motor/sensory deficits Heart: regular rate & rhythm and no murmur Lungs: no chest wall tenderness, lungs clear to auscultation, no wheeze, no rales, no rhonchi Abdomen: abdomen soft, non-tender, normal bowel sounds, and no rebound or guarding Ext: Normal extremities without edema Lab Review: I have reviewed the following results: Imaging results in the last 6 months XR HIP UNILAT 2-3 VIEWS INCLUDING AP PELVIS Result Date: 02/28/2023 IMPRESSION No evidence for acute fracture or dislocation. Chronic changes. BMP results Recent Labs Units 12/09/22 1018 11/20/22 1223 10/09/22 1402 SODIUM - [facility] mmol/L 143 141 143 POTASSIUM - [facility] mmol/L 4.3 4.5 5.0 CHLORIDE - [facility] mmol/L 106 103 106 CO2 - [facility] mmol/L 24 26 27 CREATININE - [facility] mg/dL 1.2 1.0 1.1 BUN - [facility] mg/dL 34* 31* 27* Lipid panel results Recent Labs Units 11/20/22 1223 10/23/21 1112 CHOLESTEROL - [facility] mg/dL 126 141 LDL CHOLESTEROL (CALCULATED) - [facility] mg/dL -- 74 HDL CHOLESTEROL - [facility] mg/dL -- 36* TRIGLYCERIDES - [facility] mg/dL -- 157 CBC results Recent Labs Units 11/20/22 1223 02/20/22 1151 WBC AUTO - [facility] K/uL 6.81 9.09 HGB - [facility] g/dL 14.5 15.1 HCT - [facility] % 44.1 45.7 PLATELET AUTO - [facility] K/uL 155 181 HbA1c results Recent Labs Units 12/09/22 1018 10/09/22 1402 04/08/22 1158 HEMOGLOBIN A1C - [facility] % 9.3* 8.5* 8.3* TSH results Recent Labs Units 10/23/21 1112 TSH - [facility] uIU/mL 2.33 Medication Review "Bottles Out" medication review performed today and medication list in EMR updated Franki Medina PA-C 11:02 AM *Communication sent to PCP (via autofax if non-[facility]), [facility] Care Team members,relevant Specialty Care Physicians* documented in this encounter Miscellaneous Notes * ACP (Advance Care Planning) - Franki Medina PA-C - 07/28/2023 12:32 PM EST Patient-centered Communication 07/23/2023 The patient/surrogate voluntarily agreed to participate in advance care planning discussion. They were advised that this is a separate service which may incur out of pocket cost in the form of copayment and/or deductibles. Location: Home Individual(s) present for conversation: Patient and Spouse Decisions Synopsis SmartLink Most Recent Value Past ~10 years 07/28/2023 12:31 Decisions CPR decision: Declines CPR 07/28/2023 Declines CPR Intubation/Mechanical Ventilation decision: Declines Intubation/mechanical ventilation 07/28/2023 Declines Intubation/mechanical ventilation Non-invasive ventilation or BIPAP decision: Patient chooses non-invasive ventilation. Select interventions below 03/27/2023 Non-Invasive Ventilation Interventions: NIV 03/27/2023 Antibiotic therapy decision: Patient chooses Antibiotic therapy 07/28/2023 Patient chooses Antibiotic therapy Artificial nutrition decision: Declines Artificial nutrition 07/28/2023 Declines Artificial nutrition IV hydration decision: Declines IV hydration 07/28/2023 Declines IV hydration Chemotherapy decision: Declines Chemotherapy 07/28/2023 Declines Chemotherapy Radiation therapy decision: Declines Radiation therapy 07/28/2023 Declines Radiation therapy Surgical procedure(s) decision: Patient chooses Surgical procedure 03/27/2023 Blood transfusion decision: Patient chooses Blood transfusion 03/27/2023 Lab draw decision: Patient chooses Lab draws 03/27/2023 Hospice decision: Patient chooses Hospice 07/28/2023 Patient chooses Hospice Transport decision: Patient chooses Transport 03/27/2023 Dying at home decision: Patient chooses Dying at home 07/28/2023 Patient chooses Dying at home Dialysis decision: Declines Dialysis 03/27/2023 Additional Comments Synopsis SmartLink Most Recent Value Past ~10 years 08/12/2022 16:53 Additional Comments Additional Comments: Pt does not want CPR 08/12/2022 Pt does not want CPR Discerning What Matters Most to the Patient: Hal SmartLink Most Recent Value Past ~10 years 08/12/2022 16:51 Discerning What Matters Most to the Patient In their own words, patient's UNDERSTANDING of their illness is: Pt states that he is sick of having to have his care for him. he doesn't want her to do this any longer 08/12/2022 Pt states that he is sick of having to have his care for him. he doesn't want her todo this any longer Their current SYMPTOMS include: Reduced overall well being 08/12/2022 Reduced overall well being They say their illness has CHANGED THEIR LIFE by: Less enjoyment (quality of life);Feel like a burden to family/loved ones 08/12/2022 Less enjoyment (quality of life);Feel like a burden to family/loved ones The patient thinks COMPLICATIONS in the future may be: More hospitalizations 08/12/2022 More hospitalizations Other, patient defines as: no, i don't worry much 10/15/2021 Was PROGNOSIS discussed? Yes 08/12/2022 Yes Prognosis was discussed today as likely to live: Less than a year 08/12/2022 Less than a year Progression of illness described as: A gradual decline 08/12/2022 A gradual decline The patient's HOPES are: Avoid intubation/mechanical ventilation 08/12/2022 Avoid intubation/mechanical ventilation The patient's FEARS/WORRIES about illness are: Being a burden to family;"Being a vegetable" (definebelow) 08/12/2022 Being a burden to family;"Being a vegetable" (define below) The patient considers these as 'UNACCEPTABLE OUTCOMES': "Being a vegetable" (define below);Prolonged mechanical ventilation (define below) 08/12/2022 "Being a vegetable" (define below);Prolonged mechanical ventilation (define below) Source: Content from [employer] Program Aligning Care With What Matters Most: Best Money Decisionsopsis SmartLink Most Recent Value Past ~10 years 07/28/2023 12:31 Aligning Care With What Matters Most In their own words, the patient's understanding of their prognosis: limited understanding due to dementia; spouse understands progressive nature of disease 07/28/2023 limited understanding due to dementia; spouse understands progressive nature of disease Interventions/Choices: CPR;Intubation/mechanical ventilation;Antibiotic therapy;Artificial nutrition;IV hydration;Chemotherapy;Radiation therapy;Hospice; at home 07/28/2023 CPR;Intubation/mechanical ventilation;Antibiotic therapy;Artificial nutrition;IV hydration;Chemotherapy;Radiation therapy;Hospice; at home Synopsis SmartLink Most Recent Value Past ~10 years 01/03/2022 13:16 Hospice They describe the benefits and burdens of Hospice treatment as: Pt with hospice care at home 01/03/2022 Pt with hospice care at home Source: Content from Respecting Choices Program 20 minutes spent in direct [id number] discussion Franki kent PA-C * Assessment & Plan Note - Franki Medina PA-C - 07/28/2023 12:29 PM EST Associated Problem(s): Coronary artery disease involving [place] coronary artery of [place] heart with angina pectoris (HCC) Continue plavix and statin * Assessment & Plan Note - Franki Medina PA-C - 07/28/2023 12:28 PM EST Associated Problem(s): Recurrent major depressive disorder (HCC) Mood stable on current dose of celexa * Assessment & Plan Note - Franki Medina PA-C - 07/28/2023 12:27 PM EST Associated Problem(s): PAF (paroxysmal atrial fibrillation) (HCC) Continue metoprolol Anticoagulation not recommended due to anemia, past GI bleeding/colon cancer, and recurrent falls * Assessment & Plan Note - Franki Medina PA-C - 07/28/2023 12:26 PM EST Associated Problem(s): Systolic congestive heart failure (HCC) "RED FLAG" HF Symptoms: NO IDENTIFIED SYMPTOMS Medication Regimen: Beta Se[place] Therapy: Metoprolol Succinate (ER) BERENICE Inhibitor/ARB Therapy: No BERENICE/ARB/ARNI secondary to: unknown, was previously on losartan Diuretic therapy: No diuretic secondary to unknown SGLT2 Inhibitor: empagliflozin (ex. Jardiance) Remote Patient Monitoring Vendor: No Connected RPM Device(s): No current devices Self - Management Plan Other/Additional Comments: contact [facility] for directions Exacerbation Plan Other/Additional Comments: comfort based care Additional Comments: Treat symptoms only, prefers comfort care * Assessment & Plan Note - Franki Medina PA-C - 07/28/2023 12:23 PM EST Associated Problem(s): Mixed Alzheimer's and vascular dementia (HCC) Continues aricept Fast stage [address]e [address] hospice referral as requested by family Was previously with [facility] hospice 06/2022-02/2023 documented in this encounter Plan of Treatment Upcoming Encounters Date Type Department Care Team (Late st Contact Info) Description 07/31/2023 2:40 PM EST Pharmacy Family Practice 65 [facility] 293 [facility] [place] [phone] College, Pharmacist [address] [address] 07/31/2023 3:00 PM EST Office Visit Family Practice 65 [facility] 293 [facility] [place] [phone] Victoria Saldana DO 293 [place] [address] 08/06/2023 11:00 AM EST Office Visit Infectious Disease [facility] [address] [facility] [place] [address] Tamir Mccray MD [address] [facility] [facility] [address] 09/29/2023 12:30 PM EDT Office Visit Sleep Disorders Ctr [facility] [address] [facility] [place] [phone] Neela Brunner CRNP 132 [facility] [place] [address] 09/30/2023 1:30 PM EDT Office Visit Cardiology, [facility] [address] [facility] [place] [address] Tess Riddle PA-C [address] [place] [phone] Scheduled Referrals Name Type Priority Associated Diagnoses Orde r Schedule HOSPICE REFERRAL OP Referral Within 10 da ys (routine) Mixed Alzheimer's and vascular dementia (HCC) Ordered: 07/28/2023 Health Maintenance Due Date Last Done Comments Hepatitis B (1 of 3 - Risk 3-dose series) 1995 COVID-19 Vaccine ( season) 2023 01/23/2022, 10/27/2020, 10/06/2020 CKD PHOS USE SMARTSET 80781 04/08/202303/21, 03/14/2021, 08/10/2017, Additional history exists HbA1c 06/11/2023 12/09/2022, 09/18, 04/08/2022, Additional history exists Diabetic Foot Exam 08/11/2023 08/11/2022, 0 11/01/2021, 01/02/2021, Additional history exists Diabetic Eye Exam 10/03/2023 10/02/2022, , 04/29/2021, Additional history exists Albumin/Creatinine Ratio 10/10/2023 023, 12/26/2021, 03/14/2021, Additional history exists CKD HGB USE SMARTSET 97279 11/21/202311/20, 02/20/2022, 02/20/2022, Additional history exists B-12 12/10/2023 12/09/2022, 04/0 12/2021, 09/14/2020, Additional history exists Depression Screening 03/24/2024 03/24/2023, 05/27/20 17 DTaP,Tdap,and Td Vaccines (2 - Td or Tdap) 06/03/2028 06/03/2018 Pneumococcal Vaccine: 65+ Years Completed 06/17/2018, 05/27/2017, 01/29/2016 COLONOSCOPY-EVERY 2 YRS AGES 18-100 Discontinued 08/02/2019, 07/29/2018, 07/29/2018, Additional history exists Zoster Vaccines Completed 07/25/2020, 05/11/2020 Influenza Vaccine (FLU shot) Completed 03/24/2023, 03/31/2022, 05/04/2021, Additional history exists GARDASIL-HPV IMMUNIZATION SERIES Aged Out No longer eligible based on patient's age to complete this topic MENINGOCOCCAL (MENACTRA/MENVEO) Aged Out No longer eligible based on patient's age to complete this topic documented as of this encounter Medical Devices Not on filedocumented as of this encounter Visit Diagnoses Diagnosis Mixed Alzheimer's and vascular dementia (HCC)- Primary Alzheimer's disease Systolic congestive heart failure, unspecified HF chronicity (HCC) Stage 3 chronic kidney disease, unspecified whether stage 3a or 3b CKD (HCC) PAF (paroxysmal atrial fibrillation) (HCC) Atrial fibrillation Peripheral vascular disease (HCC) Peripheral vascular disease, unspecified Recurrent major depressive disorder, remission status unspecified (HCC) 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) Advanced care planning/counseling discussion Other specified counseling documented in this encounter Additional Health Concerns Infection Onset Date Last Indicated Resolved Time 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 No Does the patient have Health Care Power of Professor Of Religion? No Code Status History Code Status Date Activated Date Inactivated Comments Full Code 07/23/2017 7:40 PM 07/26/2017 5:13 PM Question Answer Comments Discussion of Advance Direct alyssa occurred with: Not Discussed Healthcare Agents on File Name Relationship Healthcare Agent Relationshi p Communication Carlene Behrer Spouse Health Care Power of Attorn Care Teams Contract Driver Relationship Specialty Start Date End Date Victoria Saldana DO [address] [place] [address] PCP - General Family Medicine 02/20/22 documented as of this encounter
--- OUTSIDE RECORDS SUMMARY | 2023-07-31 09:18 | External Medical Summary | Summary of Care ---
Author Name Unknown Organization [facility] Address [address] [place] [address] Phone [phone] Care Team Providers Care Electrical Maintenance Mechanic Name Role Phone Victoria Saldana DO Primary Care Provider [phone] Reason for Visit * Reason Onset Date Comments Appointment 06/17/2023 [facility] discharge Encounter Details Date Type Department Care Team (Late st Contact Info) Description 06/17/2023 Telephone [facility] [address] [place] [address] Victoria Saldana DO [address] [place] [address] Appointment ([facility] discharge) Allergies Active Allergy Reactions Criticality Noted Date Comments Meperidine Psych complications 05/27/2017 Confused documented as of this encounter (statuses as of 07/28/2023) Medications Medication Sig Dispensed Refills Start Date End Date Status OMEGA-3 FISH OIL 1000 MG PO CAPS one daily by mouth 0 A ctive Aspirin 81 MG Tablet Take 1 Tablet by mouth in the morning. 0 Active Multiple Vitamins-Minerals (MULTIVITAL KIANA) TABS Take by mouth. 0 Active Blood Glucose Monitoring Suppl (ONETOUCH VERIO) w/Device KITIndications:DM type 2 nursing care encounter ([facility]),Type 2 diabetes mellitus with hemoglobin A1c goal of less than 7.0% ([facility]),DM type 2 with diabetic peripheral neuropathy ([facility]) Use up to 4 times a day E11.9 1 Kit 0 07/04/2019 Active Glucose Blood (ONETOUCH VERIO) STRPIndications:DM type 2 nursing care encounter (HCC),Type 2 diabetes mellitus with hemoglobin A1c goal of less than 7.0% (HCC),DM type 2 with diabetic peripheral neuropathy (HCC) Use up to 4 times a day E11.9 300 Strip 3 07/18/2019 Active Misc. DevicesIndications :Type 2 diabetes mellitus with hemoglobin A1c goal of less than 7.0% (HCC),History of amputation of lesser toe of left foot (HCC),DM type 2 with diabetic peripheral neuropathy (HCC) Please custom fit/dispense one pair diabetic accommodative [...] by mouth at bedtime. 0 05/05/2022 Active OneTouch Delica Lancets 30GIndications:DM type 2 with diabetic peripheral neuropathy (HCC) Use to test blood sugars once daily 100 Each 3 05/05/2022 Active Biotin 5 MG Oral Capsule Take 1 Capsule by mouth in the morning. 30 Capsule 0 05/14/2022 Active Empagliflozin 25 MG Oral TabletIndications: Type 2 diabetes mellitus with hemoglobin A1c goal of less than 8.0% (HCC),DM type 2 with diabetic peripheral neuropathy (HCC) Take 1 Tablet by mouth in the morning. (gets from supervisor carton and can supply). 0 10/09/2022 Active Metoprolol Succinate ER 50 [...] IN GASIndications:Isc hemic cardiomyopathy,PAF (paroxysmal atrial fibrillation) (HCC),Hypoxia Administer 2 L/min(Oxygen) into nostril as needed for Other (with activity). 1 Each 0 03/24/2023 Active Semaglutide 7 MG Oral Tablet (Rybelsus) Take 7 mg by mouth daily first thing in the morning. 30 Tablet 0 06/01/2023 Active documented as of this encounter (statuses [...] Self - Management Plan Other/Additional Comments: contact [facility] for directions Exacerbation Plan Other/Additional Comments: comfort [...] pain despite this dosing, they should call [facility]. Open wound of second toe of left foot 10/11/2021 Last Assessment & Plan: 86-year-old diabetic male with open wounds on the 2nd and 3rd left toe needing home health wound care to ensure that he has proper healing. There is some noted drainage from these wounds. Plan: I will place a home health referral for wound care to [facility]. My recommendations are to cleanse the [...] home health referral for wound care to [facility]. My recommendations are to cleanse the [...] as requested by family Was previously with 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 t 08/09/2019 Last Assessment & Plan: Reported d/t hammer toe Ischemic cardiomyopathy 05/05/2018 Coronary artery disease invo lving belkofski coronary artery of belk[place]ski heart with angina pectoris 05/05/2018 Overview: July [...] mRNA, LNP-s, No Pre serve, 2-Dose Series ([place] EXTENDED STAYS) 10/27/2020,10/06/2020 COVID-19, LNP-s, No Preserve , Ilan-sucrose, [...] on file documented as of this encounter Functional Status Functional Status Response [...] No 08/04/2017 documented as of this encounter Miscellaneous Notes * Telephone Encounter - Katy Moreira OSA - 06/22/2023 10:22 AM EST Appt moved via [employer]an[employer] message * Telephone Encounter - Katy Moreira OSA - 06/19/2023 2:53 PM EST Called and left message for patient to call back * Telephone Encounter - Mohini Garner OSA - 06/17/2023 3:54 PM EST Has an appointment 06/30/2023 with infectious disease in [place] Wonders if it can be at [facility] instead as it will be easier for her Please call if this is possible Is questioning what type of "Port" he has placed documented in this encounter Plan of Treatment Upcoming Encounters Date Type Department Care Team (Late st Contact Info) Description 07/31/2023 2:40 PM EST Pharmacy Family Practice [address] [place] [address] 293 [place] [address] College, Pharmacist [address] [address] 07/31/2023 3:00 PM EST Office Visit Family Practice [address] [place] [address] [address] [place] [address] Victoria Saldana DO 293 [place] [address] 08/06/2023 11:00 AM EST Office Visit Infectious Disease [facility] [address] [facility] [place] [address] Tamir Mccray MD [address] [facility] [place] [address] 09/29/2023 12:30 PM EDT [facility] 132 [facility] [place] [phone] Neela Brunner CRNP [address] [place] [address] 09/30/2023 1:30 PM EDT Office Visit Cardiology, [facility] [address] [place] [address] Tess Riddle PA-C [address] [place] [address] [place] [address] Health Maintenance Due Date Last Done Comments Hepatitis B (1 of 3 - Risk 3-dose series) 1995 COVID-19 Vaccine (2022- season) 2023 01/23/2022, 10/27/2020, 10/06/2020 CKD PHOS USE SMARTSET 48134 04/08/202303/21, 03/14/2021, 08/10/2017, Additional history exists HbA1c 06/11/2023 12/09/2022, 09/18, 04/08/2022, Additional history exists Diabetic Foot Exam 08/11/2023 08/11/2022, 0 11/01/2021, 01/02/2021, Additional history exists Diabetic Eye Exam 10/03/2023 10/02/2022, , 04/29/2021, Additional history exists Albumin/Creatinine Ratio 10/10/2023 023, 12/26/2021, 03/14/2021, Additional history exists CKD HGB USE SMARTSET 60250 11/21/202311/20, 02/20/2022, 02/20/2022, Additional history exists B-12 12/10/2023 12/09/2022, 0412/2021, 09/14/2020, Additional history exists Depression Screening 03/24/2024 [...] Not on filedocumented as of this encounter Additional Health Concerns Infection Onset Date Last Indicated Resolved Time MRSA 11/04/2021 11/04/2021 documented as of this encounter Advance Directives Documents on File Type Date Recorded Patient Oyster Farmer Expl anation POLST 08/11/2022 [place] OR [facility] FOR LIFE-SUSTAINING TREATMENT [place] DEPT OF HEALTH Advance Directives and Living Will 06/30/2014 ADVANCE DIRECTIVE Latest Code Status on File Code Status Date Activated Date Inactivated Comments Full Code 08/03/2017 11:04 PM 08/10/2017 6:40 PM Question Answer Comments Discussion of Advance Direct alyssa occurred with: Not Discussed Does the patient have a Living Will? No Does the patient have Health Care Power of [place]? No Code Status History Code Status Date Activated Date Inactivated Comments Full Code 07/23/2017 7:40 PM 07/26/2017 5:13 PM Question Answer Comments Discussion of Advance Direct alyssa occurred with: Not Discussed Healthcare Agents on File Name Relationship Healthcare Agent Relationshi p Communication Carlene Behrer Spouse Health Care Power of Attorn ey Care Teams Electrical Maintenance Mechanic Relationship Specialty Start Date End Date Victoria Saldana DO [address] [place] [address] PCP - General Family Medicine 02/20/22 documented as of this encounter
--- OUTSIDE RECORDS SUMMARY | 2023-07-31 09:18 | External Medical Summary | Summary of Care ---
Author Name Unknown Organization [facility] Address [address] [facility] [place] [address] Phone [phone] Care Team Providers Care Cryptographic Machine Operator Name Role Phone Shana Victoria Worthington DO Primary Care Provider + [phone] Reason for Visit * Reason Onset Date Comments [facility]: Maintenance 07/21/2023 Encounter Details Date Type Department Care Team (Late st Contact Info) Description 07/21/2023 9:00 AM EST Scheduled Telephone [facility], [facility] [address] [place] [address] [facility] [address] [place] [address] Allergies Active Allergy Reactions Criticality Noted Date Comments Meperidine Psych complications 05/27/2017 Confused documented as of this encounter (statuses as of 07/23/2023) Medications Medication Sig Dispensed Refills Start Date End Date Status OMEGA-3 FISH OIL 1000 MG PO CAPS one daily by mouth 0 A ctive Aspirin 81 MG Tablet Take 1 Tablet by mouth in the morning. 0 Active Multiple Vitamins-Minerals (MULTIVITAL ALATNA) TABS Take by mouth. 0 Active Blood Glucose Monitoring Suppl (ONETOUCH VERIO) w/Device KITIndications:DM type 2 nursing care encounter (HCC),Type 2 diabetes mellitus with hemoglobin A1c goal of less than 7.0% ([facility]),DM type 2 with diabetic peripheral neuropathy ([facility]) Use up to 4 times a day [...] by mouth in the morning. (gets from beauty operator apprentice). 0 10/09/2022 Active Metoprolol Succinate ER 50 [...] as of this encounter (statuses as of 07/23/2023) Active Problems Problem Noted Date Diagnosed Date Late onset Alzheimer's disea se without behavioral [...] pain despite this dosing, they should call [facility]. Open wound of second toe of left foot 10/11/2021 Last Assessment & Plan: 86-year-old diabetic male with open wounds on the 2nd and 3rd left toe needing home health wound care to ensure that he has proper healing. There is some noted drainage from these wounds. Plan: I will place a home health referral for wound care to [facility] home health. My recommendations are to cleanse [...] home health referral for wound care to [facility] home health. My recommendations are to cleanse the wounds with a mild soap and water daily, dab dry, apply Aquacel Ag, double dry dressing secured with curlex PAF (paroxysmal atrial fibrillation) 10/01/2021 Last Assessment & Plan: On beta-ruth therapy. Anticoagulation not recommended due to anemia, past GI bleeding/colon cancer, and recurrent falls Sinus node dysfunction 10/01/2021 Last Assessment & Plan: status post September 13, 2019 dual-chamber Medtronic pacemaker Mixed Alzheimer's and vascular dementia 10/02/19 Last Assessment & Plan: Baseline -continue aricept Falls frequently 10/01/2021 Last Assessment & Plan: [...] goiter 09/11/2020 Coronary artery disease invo lving [place] coronary artery of [place] heart without angina pectoris 08/09/2019 Last Assessment & Plan: No angina -continue isosorbide, toprol, atorvastatin ASA, plavix Major depressive disorder, single episode, unspe cified 08/09/2019 Last Assessment & Plan: Stable continue citalopram Dilation of aorta 08/09/2019 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 t 08/09/2019 Last Assessment & Plan: Reported d/t hammer toe Ischemic cardiomyopathy 05/05/2018 Coronary artery disease invo lving [place] coronary artery of [place] heart with angina pectoris 05/05/2018 Last Assessment & Plan: Continue asa and statin Obesity, Class I, BMI 30.0-34.9 [...] as of this encounter (statuses as of 07/23/2023) Resolved Problems Problem Noted Date Diagnosed Date [...] as of this encounter (statuses as of 07/23/2023) Immunizations Name Administration Dates Next Due COVID-19 [...] encounter Miscellaneous Notes * Telephone Encounter - Cassandra Gomez CM - 07/21/2023 9:07 AM EST Call placed to Bradley at [facility]. Spoke with Risk Assessor. Patient was dc home on 07/19. [facility] for requesting a call back. Will schedule ABHIJEET visit Call placed to pt home number.Spoke with spouse. Agreeable to HV 07/23 at 3pm with Franki Gomez Printing Machine Mechanic [facility] [email or web address] documented in this encounter Plan of Treatment Upcoming Encounters Date Type Department Care Team (Late st Contact Info) Description 07/23/2023 3:00 PM EST [facility] Visit [facility], [facility] [address] [place] [address] Franki Medina PA-C [address] [place] [address] 07/28/2023 1:00 PM EST Pharmacy Family Practice 65 [facility] 293 [place] [address] College, Pharmacist [address] [place] [address] [place] [address] 07/28/2023 1:40 PM EST Office Visit Family Practice 65 [facility] 293 [place] [address] Victoria Saldana DO 293 [place] [address] 08/06/2023 11:00 AM EST Office Visit Infectious Disease [facility] [address] [place] [address] Tamir Mccray MD [address] [place] [address] 09/29/2023 12:30 PM EDT Office Visit Sleep Disorders Ctr [facility] 132 [place] [phone] Neela Brunner CRNP 132 [place] [address] 09/30/2023 1:30 PM EDT Office Visit Cardiology, [facility] 132 [place] [address] Tess Riddle PA-C [address] [facility] [place] [address] Health Maintenance Due Date Last Done Comments Hepatitis B (1 of 3 - Risk 3-dose series) 1995 COVID-19 Vaccine ( season) 2023 01/23/2022, 10/27/2020, 10/06/2020 CKD PHOS USE SMARTSET 97846 04/08/202303/21, 03/14/2021, 08/10/2017, Additional history exists HbA1c 06/11/2023 12/09/2022, 09/18, 04/08/2022, Additional history exists Diabetic Foot Exam 08/11/2023 08/11/2022, 0 11/01/2021, 01/02/2021, Additional history exists Diabetic Eye Exam 10/03/2023 10/02/2022, , 04/29/2021, Additional history exists Albumin/Creatinine Ratio 10/10/2023 023, 12/26/2021, 03/14/2021, Additional history exists CKD HGB USE SMARTSET 42131 11/21/202311/20, 02/20/2022, 02/20/2022, Additional history exists B-12 [...] Documents on File Type Date Recorded Patient Police Liaison Officer Expl anation POLST 08/11/2022 [place] OR [facility] FOR [facility]-SUSTAIN[facility] [place] Advance Directives and Living Will 06/30/2014 ADVANCE DIRECTIVE Latest Code Status on File Code Status Date Activated Date Inactivated Comments Full Code 08/03/2017 11:04 PM 08/10/2017 6:40 PM Question Answer Comments Discussion of Advance Direct alyssa occurred with: Not Discussed Does the patient have a Living Will? No Does the patient have Health Care Power of Cement Tester Assistant? No Code Status History Code Status Date Activated Date Inactivated Comments Full Code 07/23/2017 7:40 PM 07/26/2017 5:13 PM Question Answer Comments Discussion of Advance Direct alyssa occurred with: Not Discussed Healthcare Agents on File Name Relationship Healthcare Agent Relationshi p Communication Carlene Behrer Spouse Health Care Power of Attorn Care Teams Cryptographic Machine Operator Relationship Specialty Start Date End Date Victoria Saldana DO [address] [place] [address] PCP - General Family Medicine 02/20/22 documented as of this encounter
--- OUTSIDE RECORDS SUMMARY | 2023-07-31 09:18 | External Medical Summary | Summary of Care ---
Author Name Unknown Organization [facility] Address [address] [place] [address] Phone [phone] Care Team Providers Care Portfolio Assistant Name Role Phone TyrelVictoria willingham Ander MAYER Primary Care Provider + [phone] Reason for Visit * Reason Onset Date Comments [facility]: Maintenance 07/29/2023 Encounter Details Date Type Department Care Team (Late st Contact Info) Description 07/29/2023 Telephone [facility], [facility] 132 [facility] [place] [address] Services, Scheduling [address] [place] [address] [facility]: Maintenance Allergies Active Allergy Reactions Criticality Noted Date Comments Meperidine Psych complications 05/27/2017 Confused documented as of this encounter (statuses as of 07/29/2023) Medications Medication Sig Dispensed Refills Start Date End Date Status OMEGA-3 FISH OIL 1000 MG PO CAPS one daily by mouth 0 A ctive Aspirin 81 MG Tablet Take 1 Tablet by mouth in the morning. 0 Active Multiple Vitamins-Minerals (MULTIVITAL [place] TRIBE) TABS Take by mouth. 0 Active Blood Glucose Monitoring Suppl (ONETOUCH VERIO) w/Device KITIndications:DM type 2 nursing care encounter ([facility]),Type 2 diabetes mellitus with hemoglobin A1c goal of less than 7.0% ([facility]),DM type 2 with diabetic peripheral neuropathy ([facility]) Use up to 4 times a day E11.9 1 Kit 0 07/04/2019 Active Glucose Blood (ONETOUCH VERIO) STRPIndications:DM type 2 nursing care encounter ([facility]),Type 2 diabetes mellitus with hemoglobin A1c goal of less than 7.0% (HCC),DM type 2 with diabetic peripheral neuropathy (HCC) Use up to 4 times a day E11.9 300 Strip 3 07/18/2019 Active Misc. DevicesIndications :Type 2 diabetes mellitus with hemoglobin A1c goal of less than 7.0% ([facility]),History of amputation of lesser toe of left [...] hemoglobin A1c goal of less than 8.0% ([facility]),DM type 2 with diabetic peripheral neuropathy (HCC) Take 1 Tablet by mouth in the morning. (gets from media director). 0 10/09/2022 Active Metoprolol Succinate ER 50 [...] MOUTH EVERY DAY 90 Tablet 3 02/10/2023 Active Donepezil HCl 10 MG Oral Tablet [...] as of this encounter (statuses as of 07/29/2023) Active Problems Problem Noted Date Diagnosed Date [...] Self - Management Plan Other/Additional Comments: contact [facility] for directions Exacerbation Plan Other/Additional Comments: comfort [...] pain despite this dosing, they should call [facility]. Open wound of second toe of left foot 10/11/2021 Last Assessment & Plan: 86-year-old diabetic male with open wounds on the 2nd and 3rd left toe needing home health wound care to ensure that he has proper healing. There is some noted drainage from these wounds. Plan: I will place a home health referral for wound care to [facility] health. My recommendations are to cleanse the [...] home health referral for wound care to [facility] health. 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 t 08/09/2019 Last Assessment & Plan: Reported d/t hammer toe Ischemic cardiomyopathy 05/05/2018 Coronary artery disease invo lving [place] coronary artery of [place] heart with angina pectoris 05/05/2018 Overview: July [...] as of this encounter (statuses as of 07/29/2023) Resolved Problems Problem Noted Date Diagnosed Date [...] as of this encounter (statuses as of 07/29/2023) Immunizations Name Administration Dates Next Due COVID-19 mRNA, LNP-s, No Pre serve, 2-Dose Series (ChannelEyes) 10/27/2020,10/06/2020 COVID-19, LNP-s, No Preserve , Ilan-sucrose, [...] encounter Miscellaneous Notes * Telephone Encounter - Annel Alexander OSA - 07/29/2023 8:46 AM EST Order for hospice, HV notes, snapshot and demographics faxed to today to [facility] [phone] MARKO De La Rosa documented in this encounter Plan of Treatment Upcoming Encounters Date Type Department Care Team (Late st Contact Info) Description 07/31/2023 2:40 PM EST Pharmacy Family Practice 65 [facility] 293 [place] [phone] College, Pharmacist [address] [address] 07/31/2023 3:00 PM EST Office Visit Family Practice 65 [facility] 293 [place] [phone] Victoria Saldana, DO 293 [place] [address] 08/06/2023 11:00 AM EST Office Visit Infectious Disease [facility] [address] [place] [address] Tamir Mccray MD [address] [place], [place] [id number] 09/29/2023 12:30 PM EDT Office Visit [facility] [phone] Neela Brunner CRNP 132 [facility] [place] [address] 09/30/2023 1:30 PM EDT Office Visit Cardiology, [facility] 132 [facility] [place] [address] Tess Riddle PA-C 400 [facility] [place], [place] [id number] Health Maintenance Due Date Last Done Comments Hepatitis B (1 of 3 - Risk 3-dose series) 1995 COVID-19 Vaccine ( season) 2023 01/23/2022, 10/27/2020, 10/06/2020 CKD PHOS USE SMARTSET 54936 04/08/2023 092 , 03/14/2021, 08/10/2017, Additional history exists HbA1c 06/11/2023 12/09/2022, 09/18, 04/08/2022, Additional history exists Diabetic Foot Exam 08/11/2023 08/11/2022, 0 11/01/2021, 01/02/2021, Additional history exists Diabetic Eye Exam 10/03/2023 10/02/2022, , 04/29/2021, Additional history exists Albumin/Creatinine Ratio 10/10/2023 023, 12/26/2021, 03/14/2021, Additional history exists CKD HGB USE SMARTSET 17846 11/21/202311/20, 02/20/2022, 02/20/2022, Additional history exists B-12 [...] Documents on File Type Date Recorded Patient Trim Carpenter Lisa soto POLST 08/11/2022 [place] OR DERS FOR LIFE-SUSTAINING TREATMENT [place] DEPT OF HEALTH Advance Directives and Living Will 06/30/2014 ADVANCE DIRECTIVE Latest Code Status on File Code Status Date Activated Date Inactivated Comments Full Code 08/03/2017 11:04 PM 08/10/2017 6:40 PM Question Answer Comments Discussion of Advance Direct alyssa occurred with: Not Discussed Does the patient have a Living Will? No Does the patient have Health Care Power of Nissan Sales Consultant? No Code Status History Code Status Date Activated Date Inactivated Comments Full Code 07/23/2017 7:40 PM 07/26/2017 5:13 PM Question Answer Comments Discussion of Advance Direct alyssa occurred with: Not Discussed Healthcare Agents on File Name Relationship Healthcare Agent Relationshi p Communication Carlene Behrer Spouse Health Care Power of Attorn ey Care Teams Portfolio Assistant Relationship Specialty Start Date End Date Victoria Saldana DO 293 [place] [address] PCP - General Family Medicine 02/20/22 documented as of this encounter
--- OUTSIDE RECORDS SUMMARY | 2023-07-31 09:18 | External Medical Summary | Summary of Care ---
Author Name Unknown Organization [facility] Address [address] [place] [address] Phone [phone] Care Team Providers Care It Security Architect Name Role Phone Victoria Saldana DO Primary Care Provider [phone] Reason for Visit * Reason Onset Date Comments FYI 07/21/2023 Encounter Details Date Type Department Care Team (Late st Contact Info) Description 07/21/2023 Telephone Family Practice [address] [place] [address] [place] [address] Victoria Saldana DO [address] [place] [address] FYI Allergies Active Allergy Reactions Criticality Noted Date Comments Meperidine Psych complications 05/27/2017 Confused documented as of this encounter (statuses as of 07/23/2023) Medications Medication Sig Dispensed Refills Start Date End Date Status OMEGA-3 FISH OIL 1000 MG PO CAPS one daily by mouth 0 A ctive Aspirin 81 MG Tablet Take 1 Tablet by mouth in the morning. 0 Active Multiple Vitamins-Minerals (MULTIVITAL [place]) TABS Take by mouth. 0 Active Blood Glucose Monitoring Suppl (ONETOUCH VERIO) w/Device KITIndications:DM type 2 nursing care encounter ([facility]),Type 2 diabetes mellitus with hemoglobin A1c goal of less than 7.0% ([facility]),DM type 2 with diabetic peripheral neuropathy ([facility]) Use up to 4 times a day E11.9 1 Kit 0 07/04/2019 Active Glucose Blood (ONETOUCH VERIO) STRPIndications:DM type 2 nursing care encounter (HCC),Type 2 diabetes mellitus with hemoglobin A1c goal of less than 7.0% (HCC),DM type 2 with diabetic peripheral neuropathy (HCC) Use up to 4 times a day E11.9 300 Strip 3 07/18/2019 Active [facility]. DevicesIndications :Type 2 diabetes mellitus with hemoglobin [...] by mouth in the morning. (gets from welder apprentice). 0 10/09/2022 Active Metoprolol Succinate ER [...] pain despite this dosing, they should call [facility]. Open wound of second toe of left foot 10/11/2021 Last Assessment & Plan: 86-year-old diabetic male with open wounds on the 2nd and 3rd left toe needing home health wound care to ensure that he has proper healing. There is some noted drainage from these wounds. Plan: I will place a home health referral for wound care to [facility] home health. My recommendations are to cleanse [...] home health referral for wound care to [facility] home health. 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 * Telephone Encounter - Joie Mohan LPN - 07/21/2023 3:29 PM EST Spoke to , states she received a bill for $14,000 from [employer] at [facility] and she is not going to pay it. She reports pt was admitted to the facility before . States she removed him from the facility on 07/19/23. I asked if she spoke to anyone about the bill and she stated "No". I asked if the facility coordinated a discharge for him and she stated, "No". She stated shewas not given a list of medications he was on at the facility. States she has all of his medications at home from before he went to the hospital. Explained to her that his medications may be different now. States he is doing fine at home and she is able to provide better care for him at home than the facility provided. She stated he was incontinent of a large amount of diarrhea at the facility. She states she has someone from [facility] coming to meet with them next week to discuss services. Jag states that his case advocate, Coby, from the [facility] is aware. Asked if the [facility] has contacted her and she said no; her phone blocks unknown calls. I did call Bradley at [facility] and spoke to VENU Haley. Per Sudha, pt was removed AMA from the facility on 07/19/23 by his . Sudha stated that the [facility] was also notified on 07/19/23 that pt was removed AMA. Requested that Sudha fax over medication list, H&P, progress notes, nurse's notes from facility to our office. Call placed to [facility] - they confirmed that they were notified by Bradley at [facility] that pt was removed AMA. Per [facility], Coby was pts case advocate in past when pt had Waiver services and Coby is not currently involved. Per [facility], Eliana in protective services has been notified pt was removed AMA. Call placed to and left message. Want to inform her to monitor her phone for calls from [facility] for assistance/assessment of pt needs. She did not answer. Message was left for her to return call to [phone]. * Telephone Encounter - Mohini Dalton OSA - 07/21/2023 2:57 PM EST Pts calling to advise that she "removed him from the home" states she got a bill over $14,000 and told them she was not paying that, she got him ready, and took him home. Carlene stated she just started unhooking him from everything and took him home. documented in this encounter Plan of Treatment Upcoming Encounters Date Type Department Care Team (Late st Contact Info) Description 07/23/2023 3:00 PM EST [facility] Visit [facility], [facility] 132 [facility] [place] [address] Franki Medina PA-C [address] [place] [address] 07/28/2023 1:00 PM EST Pharmacy Family Practice 65 [facility] 293 [place] [phone] College, Pharmacist [address] [address] 07/28/2023 1:40 PM EST Office Visit Family Practice 65 [facility] 293 [place] [phone] Victoria Saldana, DO [address] [place] [address] 08/06/2023 11:00 AM EST Office Visit Infectious Disease [facility] [address] [facility] [place] [address] Tamir Mccray MD [address] [place], [place] [phone] 09/29/2023 12:30 PM EDT Office Visit Sleep Disorders Ctr [facility] 132 [facility] [place] [phone] Neela Brunner CRNP [address] [facility] [place] [address] 09/30/2023 1:30 PM EDT Office Visit Cardiology, [facility] [address] [place] [address] Tess Riddle PA-C [address] [place] [address] [place] [id number] Health Maintenance Due Date Last Done Comments Hepatitis B (1 of 3 - Risk 3-dose series) 1995 COVID-19 Vaccine ( season) 2023 01/23/2022, 10/27/2020, 10/06/2020 CKD PHOS USE SMARTSET 77775 04/08/202303/21, 03/14/2021, 08/10/2017, Additional history exists HbA1c 06/11/2023 12/09/2022, 09/18, 04/08/2022, Additional history exists Diabetic Foot Exam 08/11/2023 08/11/2022, 0 11/01/2021, 01/02/2021, Additional history exists Diabetic Eye Exam 10/03/2023 10/02/2022, , 04/29/2021, Additional history exists Albumin/Creatinine Ratio 10/10/2023 023, 12/26/2021, 03/14/2021, Additional history exists CKD HGB USE SMARTSET 63295 11/21/202311/20, 02/20/2022, 02/20/2022, Additional history exists B-12 [...] Documents on File Type Date Recorded Patient Field Nurse Case Manager Expl brittany POLST 08/11/2022 [place] OR DERS FOR LIFE-SUSTAINING TREATMENT [place] DEPT OF HEALTH Advance Directives and Living Will 06/30/2014 ADVANCE DIRECTIVE Latest Code Status on File Code Status Date Activated Date Inactivated Comments Full Code 08/03/2017 11:04 PM 08/10/2017 6:40 PM Question Answer Comments Discussion of Advance Direct alyssa occurred with: Not Discussed Does the patient have a Living Will? No Does the patient have Health Care Power of Bank Sales And Service Manager? No Code Status History Code Status Date Activated Date Inactivated Comments Full Code 07/23/2017 7:40 PM 07/26/2017 5:13 PM Question Answer Comments Discussion of Advance Direct alyssa occurred with: Not Discussed Healthcare Agents on File Name Relationship Healthcare Agent Relationshi p Communication Carlene Behrer Spouse Health Care Power of Attorn ey Care Teams It Security Architect Relationship Specialty Start Date End Date Victoria Saldana DO 293 [place] [address] PCP - General Family Medicine 02/20/22 documented as of this encounter
--- OUTSIDE RECORDS SUMMARY | 2023-07-31 09:19 | External Medical Summary | Summary of Care ---
Author Name Unknown Organization [facility] Address [address] [facility] [place] [address] Phone [phone] Care Team Providers Care Foamite Mixer Name Role Phone Shana Victoria Worthington DO Primary Care Provider + [phone] Reason for Visit * Reason Onset Date Comments [facility]: Maintenance 07/21/2023 Encounter Details Date Type Department Care Team (Late st Contact Info) Description 07/21/2023 9:00 AM EST Scheduled Telephone [facility], [facility] [address] [facility] [place] [address] [facility] [address] [facility] [place] [address] Allergies Active Allergy Reactions Criticality Noted Date Comments Meperidine Psych complications 05/27/2017 Confused documented as of this encounter (statuses as of 07/21/2023) Medications Medication Sig Dispensed Refills Start Date End Date Status OMEGA-3 FISH OIL 1000 MG PO CAPS one daily by mouth 0 A ctive Aspirin 81 MG Tablet Take 1 Tablet by mouth in the morning. 0 Active Multiple Vitamins-Minerals (MULTIVITAL [place]) TABS Take by mouth. 0 Active Blood Glucose Monitoring Suppl (ONETOUCH VERIO) w/Device KITIndications:DM type 2 nursing care encounter (HCC),Type 2 diabetes mellitus with hemoglobin A1c goal of less than 7.0% ([facility]),DM type 2 with diabetic peripheral neuropathy ([facility]) Use up to 4 times a day [...] by mouth in the morning. (gets from legal project manager). 0 10/09/2022 Active Metoprolol Succinate ER 50 [...] as of this encounter (statuses as of 07/21/2023) Active Problems Problem Noted Date Diagnosed Date [...] pain despite this dosing, they should call [facility]. Open wound of second toe of left foot 10/11/2021 Last Assessment & Plan: 86-year-old diabetic male with open wounds on the 2nd and 3rd left toe needing home health wound care to ensure that he has proper healing. There is some noted drainage from these wounds. Plan: I will place a home health referral for wound care to [facility] home health. My recommendations are to cleanse [...] home health referral for wound care to [facility] home health. 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 Spoke with Performance Reporter. Patient was dc home on 07/19. [facility] for requesting a call back. Will schedule ABHIJEET visit Call placed to pt home number. No answer. Unable to leave vmail. Will attempt to call and confirm appt again Cassandra Gomez Financial Services Consultant [facility] [email or web address] documented in this encounter Plan of Treatment Upcoming Encounters Date Type Department Care Team (Late st Contact Info) Description 07/23/2023 3:00 PM EST [facility] Visit [facility] [place], [facility] [address] [place] [address] Franki Medina PA-C [address] [place] [address] 08/06/2023 11:00 AM EST Office Visit Infectious Disease [facility] [place] [address] [place] [address] Tamir Mccray MD [address] [facility] [place] [address] 09/29/2023 12:30 PM EDT Office Visit Sleep Disorders Ctr [facility] [address] [facility] [place] [phone] Neela Brunner CRNP [address] [facility] [place] [address] 09/30/2023 1:30 PM EDT Office Visit Cardiology, [facility] [address] [facility] [place] [address] Tess Riddle PA-C [address] [place] [address] [place] [phone] Health Maintenance Due Date Last Done Comments Hepatitis B (1 of 3 - Risk 3-dose series) 1995 COVID-19 Vaccine ( season) 2023 01/23/2022, 10/27/2020, 10/06/2020 CKD PHOS USE SMARTSET 70162 04/08/202303/21, 03/14/2021, 08/10/2017, Additional history exists HbA1c 06/11/2023 12/09/2022, 09/18, 04/08/2022, Additional history exists Diabetic Foot Exam 08/11/2023 08/11/2022, 0 11/01/2021, 01/02/2021, Additional history exists Diabetic Eye Exam 10/03/2023 10/02/2022, , 04/29/2021, Additional history exists Albumin/Creatinine Ratio 10/10/2023 023, 12/26/2021, 03/14/2021, Additional history exists CKD HGB USE SMARTSET 43682 11/21/202311/20, 02/20/2022, 02/20/2022, Additional history exists B-12 [...] Documents on File Type Date Recorded 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 No Does the patient have Health Care Power of Advertising Sales Agent? No Code Status History Code Status Date Activated Date Inactivated Comments Full Code 07/23/2017 7:40 PM 07/26/2017 5:13 PM Question Answer Comments Discussion of Advance Direct alyssa occurred with: Not Discussed Healthcare Agents on File Name Relationship Healthcare Agent Relationshi p Communication Carlene Behrer Spouse Health Care Power of Attorn ey Care Teams Foamite Mixer Relationship Specialty Start Date End Date Victoria Saldana DO [address] [place] [address] PCP - General Family Medicine 02/20/22 documented as of this encounter
--- OUTSIDE RECORDS SUMMARY | 2023-07-31 09:19 | External Medical Summary | Summary of Care ---
Author Name Unknown Organization [facility] Address [address] [place] [address] Phone [phone] Care Team Providers Care Cash Register Balancer Name Role Phone Victoria Saldana DO Primary Care Provider Reason for Visit * Reason Onset Date Comments Appointment 06/26/2023 Appt Encounter Details Date Type Department Care Team (Late st Contact Info) Description 06/26/2023 Telephone Family Practice [address], [place] [address] [place] [address] Victoria Saldana DO [address] [place] [address] Appointment (Appt) Allergies Active Allergy Reactions Criticality Noted Date Comments Meperidine Psych complications 05/27/2017 Confused documented as of this encounter (statuses as of 07/08/2023) Medications Medication Sig Dispensed Refills Start Date End Date Status OMEGA-3 FISH OIL 1000 MG PO CAPS one daily by mouth 0 A ctive Aspirin 81 MG Tablet Take 1 Tablet by mouth in the morning. 0 Active Multiple Vitamins-Minerals (MULTIVITAL [place]) TABS Take by mouth. 0 Active Blood Glucose Monitoring Suppl (ONETOUCH VERIO) w/Device KITIndications:DM type 2 nursing care encounter ([facility]),Type 2 diabetes mellitus with hemoglobin A1c goal of less than 7.0% ([facility]),DM type 2 with diabetic peripheral neuropathy ([facility]) Use up to 4 times a day E11.9 1 Kit 0 07/04/2019 Active Glucose Blood (ONETOUCH VERIO) STRPIndications:DM type 2 nursing care encounter (HCC),Type 2 diabetes mellitus with hemoglobin A1c goal of less than 7.0% (HCC),DM type 2 with diabetic peripheral neuropathy (HCC) Use up to 4 times a day E11.9 300 Strip 3 07/18/2019 Active [facility]. DevicesIndications :Type 2 diabetes mellitus with hemoglobin [...] by mouth in the morning. (gets from thread cutter). 0 10/09/2022 Active Metoprolol Succinate ER 50 [...] as of this encounter (statuses as of 07/08/2023) Active Problems Problem Noted Date Diagnosed Date [...] pain despite this dosing, they should call [facility]. Open wound of second toe of left foot 10/11/2021 Last Assessment & Plan: 86-year-old diabetic male with open wounds on the 2nd and 3rd left toe needing home health wound care to ensure that he has proper healing. There is some noted drainage from these wounds. Plan: I will place a home health referral for wound care to [facility] home health. My recommendations are [...] home health referral for wound care to [facility] home [facility]. 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 t 08/09/2019 Last Assessment & Plan: Reported d/t hammer toe Ischemic cardiomyopathy 05/05/2018 Coronary artery disease invo lving [place] coronary artery of [place] heart with angina pectoris 05/05/2018 Last Assessment [...] as of this encounter (statuses as of 07/08/2023) Resolved Problems Problem Noted Date Diagnosed Date [...] as of this encounter (statuses as of 07/08/2023) Immunizations Name Administration Dates Next Due COVID-19 mRNA, LNP-s, No Pre serve, 2-Dose Series ([employer] Services) 10/27/2020,10/06/2020 COVID-19, LNP-s, No Preserve , Ilan-sucrose, [...] Miscellaneous Notes * Telephone Encounter - Mohini Garner OSA - 07/08/2023 3:13 PM EST Patient still in facility unsure of release due to receiving items via pic line Will call and schedule when he is discharged * Telephone Encounter - Mohini Garner OSA - 06/30/2023 1:34 PM EST called in... as soon as she knows if she can have him home she will call Waiting for evaluation * Telephone Encounter - Mohini Garner OSA - 06/26/2023 2:12 PM EST Left message on machine to call to schedule appt documented in this encounter Plan of Treatment Upcoming Encounters Date Type Department Care Team (Late st Contact Info) Description 07/21/2023 9:00 AM EST Scheduled Telephone [facility] [address] [facility] [place] [address] Cassandra Gomez, [address] [facility] [place] [address] 08/06/2023 11:00 AM EST Office Visit Infectious Disease [facility] [address] [place] [address] Tamir Mccray MD [address] [facility] [place] [address] 09/29/2023 12:30 PM EDT Office Visit Sleep Disorders Ctr [facility] [address] [facility] [place] [phone] Neela Brunner CRNP [address] [facility] [place] [address] 09/30/2023 1:30 PM EDT Office Visit Cardiology, [facility] [address] [facility] [place] [address] Tess Riddle PA-C [address] [place] [phone] Health Maintenance Due Date Last Done Comments Hepatitis B (1 of 3 - Risk 3-dose series) 1995 COVID-19 Vaccine ( season) 2023 01/23/2022, 10/27/2020, 10/06/2020 CKD PHOS USE SMARTSET 16304 04/08/202303/21, 03/14/2021, 08/10/2017, Additional history exists HbA1c 06/11/2023 12/09/2022, 09/18, 04/08/2022, Additional history exists Diabetic Foot Exam 08/11/2023 08/11/2022, 0 11/01/2021, 01/02/2021, Additional history exists Diabetic Eye Exam 10/03/2023 10/02/2022, , 04/29/2021, Additional history exists Albumin/Creatinine Ratio 10/10/2023 023, 12/26/2021, 03/14/2021, Additional history exists CKD HGB USE SMARTSET 35637 11/21/202311/20, 02/20/2022, 02/20/2022, Additional history exists B-12 [...] Documents on File Type Date Recorded Patient 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 No Does the patient have Health Care Power of Land Acquisition Specialist? No Code Status History Code Status Date Activated Date Inactivated Comments Full Code 07/23/2017 7:40 PM 07/26/2017 5:13 PM Question Answer Comments Discussion of Advance Direct alyssa occurred with: Not Discussed Healthcare Agents on File Name Relationship Healthcare Agent [facility] p Communication Carlene Behrer Spouse Health Care Power of Attorn ey Care Teams Cash Register Balancer Relationship Specialty Start Date End Date Victoria Saldana DO [address] [place] [address] PCP - General Family Medicine 02/20/22 documented as of this encounter
[2023-07-31] MEDS: DONEPEZIL HCL 10 MG TAB PO SCH (10:14)
[2023-07-31] MEDS: MULTIVITAMIN TAB PO SCH (10:14)
[2023-07-31] MEDS: CITALOPRAM 20 MG TAB PO SCH (10:14)
[2023-07-31] MEDS: ISOSORBIDE MONO EXTENDED REL 30 MG TABCR PO SCH (10:15)
[2023-07-31] MEDS: METOPROLOL SUCC 50MG EXT REL TAB PO SCH (10:15)
[2023-07-31] MEDS: GABAPENTIN 100 MG CAP PO SCH ×2 (10:15→21:51)
[2023-07-31] MEDS: LANTUS PER UNIT CHARGE SQ SCH (10:43)
[2023-07-31] MEDS: INSULIN ASPART PER UNIT CHARGE SC SCH ×4 (11:22→22:05)
--- NOTE | 2023-07-31 12:03 | Electrocardiogram Report ---
Test Reason : Blood Pressure : / mmHG Vent. Rate : 062 BPM Atrial Rate : 227 BPM P-R Int : 000 ms QRS Dur : 200 ms QT Int : 544 ms P-R-T Axes : 000 -80 091 degrees QTc Int : 552 ms Ventricular-paced rhythm Abnormal ECG When compared with ECG of 15-MAY-2023 20:32, Vent. rate has decreased BY 7 BPM Confirmed by Sukh Villegas ([id number]) on 07/31/2023 12:02:47 PM Referred By: REFERRED SELF Confirmed By:Sukh Villegas
[2023-07-31 16:54] LABS: Adenovirus PCR Not Detected (NotDetected); Bordetella parapertussis PCR Not Detected (NotDetected); Bordetella pertussis PCR Not Detected (NotDetected); Chlamydia pneumoniae PCR Not Detected (NotDetected); Coronavirus 229E PCR Not Detected (NotDetected); Coronavirus HKU1 PCR Not Detected (NotDetected); Coronavirus NL63 PCR Not Detected (NotDetected); Coronavirus OC43PCR Not Detected (NotDetected); Human Metapneumovirus PCR Not Detected (NotDetected); Influenza A PCR Not Detected (NotDetected); Influenza B PCR Not Detected (NotDetected); Mycoplasma pneumoniae PCR Not Detected (NotDetected); Parainfluenza Virus 1 PCR Not Detected (NotDetected); Parainfluenza Virus 2 PCR Not Detected (NotDetected); Parainfluenza Virus 3 PCR Not Detected (NotDetected); Parainfluenza Virus 4 PCR Not Detected (NotDetected); Respiratory Syncytial VirusPCR Not Detected (NotDetected); Rhinovirus/Enterovirus PCR Not Detected (NotDetected)
[2023-07-31 17:17] LABS: Coronavirus CoV-2 (COVID19)PCR DETECTED (NotDetected)
[2023-07-31] MEDS ORDERED: LEVALBUTEROL HCL 0.63 MG/3 ML NEB NEB PRN (17:40)
--- NOTE | 2023-07-31 17:50 | Hospitalist Progress Note ---
Date of Service July 31, 2023 Assessment & Plan (1) AMS (altered mental status): Plan: COVID 19 infection Bio fire positive for COVID-19 --CT Chest: No acute findings in the chest. Check procalcitonin, CRP No hypoxia currently Currently no indication for treatment Isolation precautions--Airborne/Contact Albuterol, supplemental Oxygen as needed Unwitnessed Fall Multiple contusions, abrasions secondary to fall Head CT:No acute findings in the head/brain. CT ABD:No acute findings in the abdomen or pelvis. Imaging studies showed no fractures Fall precautions PT OT as able Wound care nurse consulted H/O Dementia UA not suggestive of UTI Reorient frequently to minimize delirium Continue home medications Chronic diastolic heart failure EF 60-65%, TTE 2022 No signs of exacerbation CAD S/P CABG SSS S/P PPM Valvular heart disease (mild /MR/TR) Continue home medications Resume aspirin, Plavix tomorrow Hypertension Hyperlipidemia Continue home medications Colon cancer s/p surgery/incomplete chemotherapy Prostate cancer s/p radiation, currently in remission DM II Last HbA1C: 8.6 Hold p.o. meds Continue insulin while hospitalized Monitor BGs H/O DVT H/O MRSA bacteremia As per records DVT Px: SCDs Re: contusions/abrasions CODE STATUS DNR/DNI Disposition PT OT prior to discharge Admission and Anticipated Discharge Date Admission Date: July 31, 2023 Subjective Patient is seen and examined at bedside History difficult to obtain given dementia No distress on exam Denies any chest pain, dyspnea, dizziness, nausea, vomiting, abdominal pain Saturating well on room air Offers no other complaints Review of Systems Review of Systems: All systems reviewed & are unremarkable except as noted in Subjective Physical Exam Physical Exam: Physical Exam: Vitals signs as noted above General Appearance:Moderately built and nourished, no apparent distress Head: normocephalic, Atraumatic Eyes: normal inspection, EOMI Neck: supple, Trachea midline Respiratory/Chest: Decreased breath sounds, CTA, No accessory muscle use Cardiovascular: S1, S2, +murmur Abdomen/GI:Soft, Non tender, Bowel sounds present Extremities/Musculoskeletal:normal inspection, Trace edema Neurologic/Psych:AAOX2, grossly no focal neurological deficits,+ Dementia Skin: normal color, warm, +Multiple abrasions on extremities Results & Data Results & Data Vital Signs (Past 12 Hours) Vital Signs Pulse Pulse Resp BP BP Pulse Ox O2 Del Method 07/31/23 16:58 60 15 101/66 94 Room Air 07/31/23 08:00 86 07/31/23 07:00 61 18 07/31/23 06:30 60 18 07/31/23 06:29 60 17 07/31/23 06:29 122/76 07/31/23 06:00 60 19 07/31/23 05:43 62 Laboratory Results Short CBC 07/31/23 Range/Units 02:16 WBC 12.11 H (4.8-10.8) K/ul Hgb 15.8 (14.0-18.0) g/dl Hct 49.0 (42.0-52.0) % Plt Count 176 (130-400) K/uL BMP 07/31/23 02:16 Sodium 141 Potassium 4.1 Chloride 105 Carbon Dioxide 26 BUN 36 H Creatinine 1.25 Glucose 150 H Calcium 9.7 Cardiac Enzymes 07/31/23 Range/Units 02:16 Total Creatine Kinase 87 (30-223) U/L Liver Function 07/31/23 Range/Units 02:16 Total Bilirubin 0.7 (0.2-1.0) mg/dl AST 28 (13-39) U/L ALT 29 (7-52) U/L Alkaline Phosphatase 87 (34-104) U/L Albumin 4.7 (3.4-5.0) gm/dl
[2023-07-31] MEDS: ATORVASTATIN 40 MG TAB PO SCH (21:50)
[2023-07-31] MEDS: MELATONIN 3 MG TAB PO SCH (21:51)
[2023-08-01 06:37] LABS: Calcium 8.8 mg/dl (8.6-10.3); Magnesium 2.1 mg/dl (1.7-2.4); Potassium 3.9 mmol/L (3.5-5.1)
[2023-08-01 06:44] LABS: BUN Creatinine Ratio 32.6 (10-20); C Reactive Protein 0.55 mg/dl (0-0.5); Creatinine Clr Calc Pharmacy 68.5 ml/min; Est GFR (African American) 82.5 ml/min; Est GFR (Non-African American) 71.2 ml/min
[2023-08-01 06:58] LABS: Hematocrit (blood only) 39.5 % (42.0-52.0); Hemoglobin 13.6 g/dl (14.0-18.0); Mean Corpuscular Hgb Conc 34.4 g/dL (32.0-36.0); Mean Corpuscular Volume 89.1 fL (80.0-100.0); Mean Platelet Volume 11.2 fL (9.4-12.4); Platelet Count 134 K/uL (130-400); RDW Coefficient of Variation 14.2 % (11.5-14.5); RDW Standard Deviation 45.2 fL (36.4-46.3); Red Blood Count 4.54 M/uL (4.70-6.10); White Blood Count 6.55 K/ul (4.8-10.8)
[2023-08-01 06:59] LABS: Basophils # (auto) 0.02 K/uL (0.00-0.20); Basophils % (auto) 0.3 %; Eosinophils # (auto) 0.04 K/uL (0.00-0.50); Eosinophils % (auto) 0.6 %; Immature Granulocytes # (auto) 0.04 K/uL (0.01-0.20); Immature Granulocytes % (auto) 0.6 %; Lymphocytes # (auto) 1.99 K/uL (1.20-3.40); Lymphocytes % (auto) 30.4 %; Monocytes # (auto) 0.68 K/uL (0.11-0.59); Monocytes % (auto) 10.4 %; Neutrophils # (auto) 3.78 K/uL (1.40-6.50); Neutrophils % (auto) 57.7 %
[2023-08-01] MEDS: INSULIN ASPART PER UNIT CHARGE SC SCH ×4 (08:54→20:28)
[2023-08-01] MEDS: ASPIRIN 81 MG ECTAB PO SCH (08:55)
[2023-08-01] MEDS: CLOPIDOGREL BISULFATE 75 MG TAB PO SCH (08:55)
[2023-08-01] MEDS: LANTUS PER UNIT CHARGE SQ SCH (08:55)
[2023-08-01] MEDS: MULTIVITAMIN TAB PO SCH (08:56)
[2023-08-01] MEDS: ISOSORBIDE MONO EXTENDED REL 30 MG TABCR PO SCH (08:56)
[2023-08-01] MEDS: DONEPEZIL HCL 10 MG TAB PO SCH (08:56)
[2023-08-01] MEDS: METOPROLOL SUCC 50MG EXT REL TAB PO SCH (08:56)
[2023-08-01] MEDS: GABAPENTIN 100 MG CAP PO SCH ×2 (08:56→20:34)
[2023-08-01] MEDS: CITALOPRAM 20 MG TAB PO SCH (08:56)
[2023-08-01 17:45] LABS: Appearance Urine Clear (Clear); Bilirubin Urine Negative (Negative); Blood Urine Negative (Negative); Color Urine Dark Yellow; Glucose Urine UA 3+ (Negative); Ketones Urine 1+ (Negative); Leukocyte Esterase Urine Negative (Negative); Nitrite Urine Negative (Negative); Protein Urine Negative (Negative); Specific Gravity Urine 1.043 (1.000-1.030); Urobilinogen Urine Negative (Negative)
--- NOTE | 2023-08-01 19:32 | Hospitalist Progress Note ---
Date of Service August 01, 2023 Assessment & Plan (1) AMS (altered mental status): Plan: COVID 19 infection Bio fire positive for COVID-19 --CT Chest: No acute findings in the chest. Check procalcitonin, CRP No hypoxia currently Isolation precautions--Airborne/Contact Albuterol, supplemental Oxygen as needed Continue conservative management Unwitnessed Fall Multiple contusions, abrasions secondary to fall Head CT:No acute findings in the head/brain. CT ABD:No acute findings in the abdomen or pelvis. Imaging studies showed no fractures Fall precautions PT OT as able Wound care nurse consulted Need rehab placement H/O Dementia UA not suggestive of UTI Reorient frequently to minimize delirium Continue home medications Chronic diastolic heart failure EF 60-65%, TTE 2022 No signs of exacerbation CAD S/P CABG SSS S/P PPM Valvular heart disease (mild /MR/TR) Continue home medications Hypertension Hyperlipidemia Continue home medications Colon cancer s/p surgery/incomplete chemotherapy Prostate cancer s/p radiation, currently in remission DM II Last HbA1C: 8.6 Hold p.o. meds Continue insulin while hospitalized Monitor BGs H/O DVT H/O MRSA bacteremia As per records DVT Px: SCDs Re: contusions/abrasions On aspirin, Plavix CODE STATUS DNR/DNI Disposition Plan to discharge to rehab as able Admission and Anticipated Discharge Date Admission Date: July 31, 2023 Subjective Patient is seen and examined at bedside Pleasantly confused Admits to have some discomfort at site of wound Denies any chest pain, dyspnea, dizziness, nausea, vomiting, abdominal pain Saturating well on room air No other complaints Review of Systems Review of Systems: All systems reviewed & are unremarkable except as noted in Subjective Physical Exam Physical Exam: Physical Exam: Vitals signs as noted above General Appearance:Moderately built and nourished, no apparent distress Head: normocephalic, Atraumatic Eyes: normal inspection, EOMI Neck: supple, Trachea midline Respiratory/Chest: Decreased breath sounds, CTA, No accessory muscle use Cardiovascular: S1, S2, +murmur Abdomen/GI:Soft, Non tender, Bowel sounds present Extremities/Musculoskeletal:normal inspection, Trace edema Neurologic/Psych:AAOX2, grossly no focal neurological deficits,+ Dementia Skin: normal color, warm, +Multiple abrasions on extremities Results & Data Results & Data Vital Signs (Past 12 Hours) Vital Signs Temp Pulse Pulse Resp BP BP Pulse Ox 08/01/23 16:37 08/01/23 15:01 36.7 C 85 19 124/74 97 08/01/23 15:01 61 08/01/23 12:37 60 08/01/23 11:39 36.3 C L 63 19 115/64 97 08/01/23 07:56 36.3 C L 82 16 130/77 98 O2 Del Method 08/01/23 16:37 Room Air 08/01/23 15:01 Room Air 08/01/23 15:01 08/01/23 12:37 08/01/23 11:39 Room Air 08/01/23 07:56 Room Air Laboratory Results Short CBC 08/01/23 Range/Units 05:36 WBC 6.55 (4.8-10.8) K/ul Hgb 13.6 L (14.0-18.0) g/dl Hct 39.5 L (42.0-52.0) % Plt Count 134 (130-400) K/uL BMP 08/01/23 05:36 Sodium 141 Potassium 3.9 Chloride 108 H Carbon Dioxide 22 BUN 31 H Creatinine 0.95 D Glucose 108 H Calcium 8.8 Urine 08/01/23 Range/Units 17:34 Urine Color Dark Yellow Urine Appearance Clear (Clear) Urine pH 5.0 (4.5-7.5) Ur Specific [place] 1.043 H (1.000-1.030) Urine Protein Negative (Negative) Urine Glucose (UA) 3+ H (Negative)
[2023-08-01] MEDS: MELATONIN 3 MG TAB PO SCH (20:34)
[2023-08-01] MEDS: ATORVASTATIN 40 MG TAB PO SCH (20:34)
[2023-08-02] MEDS: GABAPENTIN 100 MG CAP PO SCH ×2 (07:37→21:45)
[2023-08-02] MEDS: DONEPEZIL HCL 10 MG TAB PO SCH (07:38)
[2023-08-02] MEDS: MULTIVITAMIN TAB PO SCH (07:38)
[2023-08-02] MEDS: ASPIRIN 81 MG ECTAB PO SCH (07:38)
[2023-08-02] MEDS: METOPROLOL SUCC 50MG EXT REL TAB PO SCH (07:38)
[2023-08-02] MEDS: ISOSORBIDE MONO EXTENDED REL 30 MG TABCR PO SCH (07:38)
[2023-08-02] MEDS: CLOPIDOGREL BISULFATE 75 MG TAB PO SCH (07:38)
[2023-08-02] MEDS: CITALOPRAM 20 MG TAB PO SCH (07:38)
[2023-08-02] MEDS: LANTUS PER UNIT CHARGE SQ SCH (09:06)
[2023-08-02] MEDS: INSULIN ASPART PER UNIT CHARGE SC SCH ×4 (09:07→20:48)
--- NOTE | 2023-08-02 16:43 | Hospitalist Progress Note ---
Date of Service August 02, 2023 Assessment & Plan (1) AMS (altered mental status): Plan: COVID 19 infection Bio fire positive for COVID-19 --CT Chest: No acute findings in the chest. Check procalcitonin, CRP No hypoxia currently Isolation precautions--Airborne/Contact Albuterol, supplemental Oxygen as needed Continue conservative management Plan to discharge to rehab facility when accepted Unwitnessed Fall Multiple contusions, abrasions secondary to fall Head CT:No acute findings in the head/brain. CT ABD:No acute findings in the abdomen or pelvis. 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 meds Continue insulin while hospitalized Monitor BGs H/O DVT H/O MRSA bacteremia As per records DVT Px: SCDs Re: contusions/abrasions On aspirin, Plavix CODE STATUS DNR/DNI Disposition Plan to discharge to rehab as able Admission and Anticipated Discharge Date Admission Date: July 31, 2023 Subjective Patient is seen and examined at bedside Pleasantly confused No new complaints today Denies any chest pain, dyspnea, dizziness, nausea, vomiting, abdominal pain Saturating well on room air Lying in bed comfortably during my exam today Review of Systems Review of Systems: All systems reviewed & are unremarkable except as noted in Subjective Physical Exam Physical Exam: Physical Exam: Vitals signs as noted above General Appearance:Moderately built and nourished, no apparent distress Head: normocephalic, Atraumatic Eyes: normal inspection, EOMI Neck: supple, Trachea midline Respiratory/Chest: Decreased breath sounds, CTA, No accessory muscle use Cardiovascular: S1, S2, +murmur Abdomen/GI:Soft, Non tender, Bowel sounds present Extremities/Musculoskeletal:normal inspection, Trace edema Neurologic/Psych:AAOX2, grossly no focal neurological deficits,+ Dementia Skin: normal color, warm, +Multiple abrasions on extremities Results & Data Results & Data Vital Signs (Past 12 Hours) Vital Signs Temp Pulse Pulse Pulse Resp BP BP 08/02/23 16:01 36.7 C 61 20 124/72 08/02/23 14:41 62 08/02/23 11:28 36.3 C L 62 18 113/79 08/02/23 10:47 08/02/23 08:09 68 08/02/23 07:26 36.9 C 70 18 126/83 Pulse Ox O2 Del Method 08/02/23 16:01 93 Room Air 08/02/23 14:41 08/02/23 11:28 96 Room Air 08/02/23 10:47 Room Air 08/02/23 08:09 08/02/23 07:26 93 Room Air Laboratory Results Urine 08/01/23 Range/Units 17:34 Urine Color Dark Yellow Urine Appearance Clear (Clear) Urine pH 5.0 (4.5-7.5) Ur Specific [place] 1.043 H (1.000-1.030) Urine Protein Negative (Negative) Urine Glucose (UA) 3+ H (Negative)
[2023-08-02] MEDS: ATORVASTATIN 40 MG TAB PO SCH (21:45)
[2023-08-02] MEDS: MELATONIN 3 MG TAB PO SCH (21:45)
[2023-08-03 05:04] LABS: Hematocrit (blood only) 38.4 % (42.0-52.0); Mean Corpuscular Hemoglobin 29.9 pg (25.0-34.0); Mean Corpuscular Hgb Conc 33.9 g/dL (32.0-36.0); Mean Corpuscular Volume 88.3 fL (80.0-100.0); Mean Platelet Volume 10.6 fL (9.4-12.4); Platelet Count 144 K/uL (130-400); RDW Coefficient of Variation 14.2 % (11.5-14.5); RDW Standard Deviation 45.5 fL (36.4-46.3); Red Blood Count 4.35 M/uL (4.70-6.10); White Blood Count 5.99 K/ul (4.8-10.8)
[2023-08-03 05:19] LABS: BUN Creatinine Ratio 27.4 (10-20); Calcium 8.7 mg/dl (8.6-10.3); Creatinine Clr Calc Pharmacy 61.3 ml/min; Est GFR (African American) 72.3 ml/min; Est GFR (Non-African American) 62.4 ml/min; Potassium 4.1 mmol/L (3.5-5.1)
[2023-08-03] MEDS: INSULIN ASPART PER UNIT CHARGE SC SCH ×4 (09:19→20:51)
[2023-08-03] MEDS: ISOSORBIDE MONO EXTENDED REL 30 MG TABCR PO SCH (09:20)
[2023-08-03] MEDS: MULTIVITAMIN TAB PO SCH (09:20)
[2023-08-03] MEDS: CITALOPRAM 20 MG TAB PO SCH (09:20)
[2023-08-03] MEDS: GABAPENTIN 100 MG CAP PO SCH ×2 (09:20→20:56)
[2023-08-03] MEDS: LANTUS PER UNIT CHARGE SQ SCH (09:20)
[2023-08-03] MEDS: METOPROLOL SUCC 50MG EXT REL TAB PO SCH (09:20)
[2023-08-03] MEDS: DONEPEZIL HCL 10 MG TAB PO SCH (09:20)
[2023-08-03] MEDS: ASPIRIN 81 MG ECTAB PO SCH (09:21)
[2023-08-03] MEDS: CLOPIDOGREL BISULFATE 75 MG TAB PO SCH (09:21)
[2023-08-03] MEDS ORDERED: POLYETHYLENE (MIRALAX) 17 GM PACK PO PRN (10:08)
[2023-08-03] MEDS ORDERED: DOCUSATE SODIUM 100 MG CAP PO STA (10:13)
--- NOTE | 2023-08-03 14:44 | Hospitalist Progress Note ---
Date of Service August 03, 2023 Assessment & Plan (1) AMS (altered mental status): Plan: COVID 19 infection Bio fire positive for COVID-19 Acute metabolic encephalopathy--POA due to above --CT Chest: No acute findings in the chest. Check procalcitonin, CRP No hypoxia currently Isolation precautions--Airborne/Contact Albuterol, supplemental Oxygen as needed Continue conservative management Stable Unwitnessed Fall Multiple contusions, abrasions secondary to fall Head CT:No acute findings in the head/brain. CT ABD:No acute findings in the abdomen or pelvis. Imaging studies showed no fractures Fall precautions PT OT as able Wound care nurse consulted Rehab as able Continue wound care H/O Dementia UA not suggestive of UTI Reorient frequently to minimize delirium Continue home medications Chronic diastolic heart failure EF 60-65%, TTE 2022 No signs of exacerbation CAD S/P CABG SSS S/P PPM Valvular heart disease (mild /MR/TR) Continue home medications Hypertension Hyperlipidemia Continue home medications Colon cancer s/p surgery/incomplete chemotherapy Prostate cancer s/p radiation, currently in remission DM II Last HbA1C: 8.6 Hold p.o. meds Continue insulin while hospitalized Monitor BGs H/O DVT H/O MRSA bacteremia As per records DVT Px: SCDs Re: contusions/abrasions On aspirin, Plavix CODE STATUS DNR/DNI Disposition Plan to discharge to rehab as able Admission and Anticipated Discharge Date Admission Date: July 31, 2023 Subjective Patient is seen and examined at bedside Pleasantly confused Doing well Denies any chest pain, dyspnea, dizziness, nausea, vomiting, abdominal pain Waiting for placement Review of Systems Review of Systems: All systems reviewed & are unremarkable except as noted in Subjective Physical Exam Physical Exam: Physical Exam: Vitals signs as noted above General Appearance:Moderately built and nourished, no apparent distress Head: normocephalic, Atraumatic Eyes: normal inspection, EOMI Neck: supple, Trachea midline Respiratory/Chest: Decreased breath sounds, CTA, No accessory muscle use Cardiovascular: S1, S2, +murmur Abdomen/GI:Soft, Non tender, Bowel sounds present Extremities/Musculoskeletal:normal inspection, Trace edema Neurologic/Psych:AAOX2, grossly no focal neurological deficits,+ Dementia Skin: normal color, warm, +Multiple abrasions on extremities Results & Data Results & Data Vital Signs (Past 12 Hours) Vital Signs Temp Pulse Pulse Pulse Resp BP Pulse Ox 08/03/23 11:22 36.3 C L 74 16 122/74 97 08/03/23 10:56 08/03/23 10:55 62 08/03/23 09:22 118/72 08/03/23 07:47 36.3 C L 86 18 175/102 H 98 08/03/23 03:39 36.3 C L 86 20 152/96 H 94 O2 Del Method 08/03/23 11:22 Room Air 08/03/23 10:56 Room Air 08/03/23 10:55 08/03/23 09:22 08/03/23 07:47 Room Air 08/03/23 03:39 Room Air Laboratory Results Short CBC 08/03/23 Range/Units 04:15 WBC 5.99 (4.8-10.8) K/ul Hgb 13.0 L (14.0-18.0) g/dl Hct 38.4 L (42.0-52.0) % Plt Count 144 (130-400) K/uL BMP 08/03/23 04:15 Sodium 138 Potassium 4.1 Chloride 108 H Carbon Dioxide 23 BUN 29 H Creatinine 1.06 Glucose 131 H Calcium 8.7
--- NOTE | 2023-08-03 15:20 | Palliative Care Consultation ---
Date of Consultation August 03, 2023 Assessment & Plan (1) Dyspnea and respiratory abnormalities: (2) Weakness generalized: progressive dementia, weakness, declining was in a memory care center but states they neglected him and it was not clean/hygienic she brought him home but he is too much for her to manage alone and she has now injured her back further (3) Dementia with behavioral disturbance: (4) Confusion: (5) Discussion about advance care planning held with family member: Spoke with Mrs Noyola by phone for 60 min ACP SHe had a lengthy and detailed list of concerns about his care at prior memory care SNF and her worries for his future care. She states prior SNF told her pt did not qualify for medicaid but she notes they have little assets and she resides in a trailer home on a fixed income and cannot afford OOP costs. SHe is very angry about the current outstanding bill from prior SNF and feels they were very dishonest and states "they just lied to me, over and over. They didn't tell me anything honest. THey said I wouldn't have to pay for anything out of my own pocket and now look, I have a bill for thousands and thousands of dollars. I don't have any money like that! They didn't care for him with any compassion. Their place was [facility] and no one shaun aned anything. He would sit in his own waste for hours and even when I called the aides they would lecture me they had just cleaned him up, like this was something he could control!" She has been in discussion with unit CM about SNFs she would and would not want for him. We spoke about goals with advancing end stage dementia. She shares he is no longer able to care for himself, feed himself and has incontinence. He cannot be left home alone for even short periods of time. She has no caregiver help from family. She has some help from [facility] but it is only a few hours a week. Mrs Noyola states she asked about hospice and a nurse came to see her but she cannot recall the agency. She states the nurse told her "he is too good for hospice and you are already get more help with your caregivers during the week than we would give so I would not suggest you add hospice to his care." I advised if his aides are thru [employer] then hospice would not affect the hours they have approved. Nevertheless, it is still more than she can handle on her own. She cannot manage his physical needs, his constant wandering, insomnia, sleep dysregulation and emotional lability/inability to follow commands. She feels he needs a SNF but wants it to be better than prior and dry cleaner hand. She is working with CM on this. We discussed the goals of hospice as a patient service and the goals of care; we discussed EOL trajectories and transitions irene the emotional impact of realizing mortality as a concrete reality from prior abstract considerations. Pt was reassured that no matter where they are along this trajectory, they are not alone - their medical team will remain by their side through their journey. Discussed the pros/cons of accepting help when especially weakened and distressed by pain-which would also help provide relief/decrease caregiver burden/strain. I provided education about the hospice benefit: an interdisciplinary program offered by nurses, nurses aides, social workers, chaplains and a chief medical officer for patients with a terminal condition and a life expectancy of less than 6 months. This is covered by Medicare at 100%/no out of pocket expense to patient and all meds/supplies needed by patient for the reason they are on hospice are paid for/covered by hospice. The goal is assure quality of life of the patient in their home setting (home, halfway, inpatient hospice setting) by providing symptoms management, psychosocial and spiritual support. However, they cannot offer 24 hours care and if the family is unable to provide that care, they will have to consider personal care with out of pocket cost vs. halfway placement. We discussed the goals of hospice as a patient service and the goals of care; we discussed EOL trajectories and transitions irene the emotional impact of realizing mortality as a concrete reality from prior abstract considerations. Pt was reassured that no matter where they are along this trajectory, they are not alone - their medical team will remain by their side through their journey. Discussed the pros/cons of accepting help when especially weakened and distressed by pain-which would also help provide relief/decrease caregiver burden/strain. We reviewed the following facts about dementia: * Dementia is a terminal illness. Aggressive medical treatment for residents with advanced dementia is often inappropriate for medical reasons, has a low rate of success, and can have negative outcomes that hasten functional decline and . ([place] [employer] Ethics Committee and Clinical Practice and Models of Care Committee. J Am Geriatr Soc. 2014 Aug;62(8):1590-3 and Buck SL, Nolvia JM, Schmitz SC, Mor V. A national study of the location of for older persons with dementia. J Am Geriatr Soc 2005; 53(2):299-305 .) * Tube feeding in residents with advanced dementia does not increase survival. It does not prevent aspiration pneumonia, malnutrition or pressure ulcers. It does not reduce the risk of infections or improve functional status or comfort of the patient. (from: Max BOWMAN, Bebe T Percutaneous endoscopic gastrostomy does not prolong survival in patients with dementia. Arch Engineering Lab Technician Med 2003; 163(11):8466-5220 AND Cynthia DE, Carlos ANTONINO, Sukhdeep J, Hollis S, Quoc RS. High short-term mortality in hospitalized patients with advanced dementia - Lack of benefit of tube feeding. Arch Engineering Lab Technician Med 2001; 161(4):594- 599.) * Simple strategies involving hands-on care by well-trained staff such as massage, oral hygiene, changes in diet, and hand-feeding -- can prevent infection and manage feeding problems without resort to tube-feeding. * Tube feeding does not prevent aspiration pneumonia and might actually increase its incidence, and does not prevent the consequences of malnutrition * Hand feeding can be provided until the beginning of the dying process when all physiological processes shut down, note that cognitively intact cancer patients indicate that dying residents do not feel hunger and thirst. * Voluntary refusal of food and liquids is often initiated by hospice patients and does not result in discomfort * The majority of older Americans whose underlying cause of is attributable to dementia on their certificate in nursing homes. State-level factors, including the availability of hospital and halfway beds and the age of decedents in the population, explain, in part, the wide [id number] variability in the proportion of dementia-related deaths occurring in the hospital. * Older adults with dementia frequently receive acute care in their last year of life although Hospice care was more common for home/OZIEL residents. Overall time in hospice remains short due to the underutilization of the hospice benefit for terminal dementia (Meka MM, Hue JM, Jose L KM, Yuri DE, [place] PY. Dementia Care in the Last Year of Life: Experiences in a Community Practice and in Nursing Home Facilities. J Palliat Care. 2022;38(2):135-142. doi:10.1177/[id number]) * Home Hospice is a valuable option for terminal dementia who desire to have peaceful EOL at home. Home hospice care for advanced dementia can improve symptom management and caregiver satisfaction, while decreasing caregiver burden, preventing hospitalizations and discontinuing unnecessary medications (Juanjose ADAME, Monty R, Iker G, et al. Home hospice for older people with advanced dementia: a remotely piloted vehicle controller project [published correction appears in Isr J Health Policy Res. 2019 Jan 17;8(1):56]. Isr J Health Policy Res. 2019;8(1):42. Published 2018November 22. doi:10.1186/y30711-432-2858-m) * With the plan if for SNF placement, I recommend hospice at SNF: Hospice is a valuable service for persons with advanced dementia, particularly in management of pain, continuous involvement of the primary physician, and avoidance of hospitalization. Social support provided to caregivers is also important given their high levels of depressive symptoms and anxiety. The goal of care for residents with advanced dementia is primarily maintenance of function and patient should not be transferred to an acute care setting because hospitalization results in decline of functional abilities that do not recover after discharge back into halfway. If this is desired, then Care Mgt follow up is needed to determine if pt is eligible for hospice at SNF/deferred to CM and primary team. She is in agreement for a comfort plan of care here and at SNF for this terminal dementia. He is FAST 7c He is hospice eligible for dementia + FTT + resp failure (6) COVID: (7) Palliative care by specialist: (8) Frequent falls: (9) Bacteremia due to methicillin resistant Staphylococcus aureus: (10) Paroxysmal atrial fibrillation: (11) LAFB (left anterior fascicular block): (12) Mobitz type 1 second degree AV block: Plan * Hospice at SNF, in agreement - See ACP discussion above * It is noted emphatically perceives sense of betrayal by prior SNF and failure to care for dementia patient; she has strong financial worries. SHe has reinjured a prior back problem while caring for him and is awaiting surgical eval, may need another spine surgery in near future which will render her even more limited to be ab le to visit and engage with pt. * Social isolation for patient and spouse, very limited support systems and no signif resources. * Palliative Med was consulted to assist with ACP and hospice discussion, there are no acute /urgent IP Pall med needs at this time and I will sign off. has my contact information if future assistance is needed and I offered follow up in OP pall med clinic for dementia related symptom mgt if she desires post dc. Thank you for allowing us to participate in the ongoing care of this patient. Please don't hesitate to call or page with any additional concerns. Dr. Grace Correa DNP Director, Palliative Care History of Present Illness Reason for Consultation: dementia - wants hospice Attending Physician: Rick Doss MD History of Present Illness 88yo male with adv dementia who is now admitted with CARDS, covid + this admission has adv dementia was living in a dementia care SNF but removed him after findings multiple occurrences of neglect and lack of cleanliness (she states pt shared a bathroom with 2 other residents all of whom had issues with bowel/bladder incontinence and toilet was not cleaned routinely, leaving excrement in plain sight.) She became so disgusted with their ineptitude that she drove their one day, packed up his things and brought him home. He has been difficult to manage at home, he wanders, can be hard to care for, does not easily follow instructions. He also is hard for her to care for physically, he can no longer be left alone and is having a lot of trouble processing information, has become mistrustful and does not recognize her most days. Appetite has declined +GI and incontinence Down to 3-4 word sentences at best, often garbled Allergies Allergy/AdvReac Type Severity Reaction Status Date / Time hydrocodone AdvReac Intermediate MAKES PT Verified 06/30/23 10:19 HALLUCINATE meperidine AdvReac Intermediate psych Verified 07/31/23 02:06 complications oxycodone AdvReac Intermediate MAKES PT Verified 06/30/23 10:19 HALLUCINATES Home Medications Medication Instructions Recorded Confirmed Type aspirin 81 mg tablet,delayed 81 mg PO QAM 05/15/23 07/31/23 History release atorvastatin 40 mg tablet 40 mg PO HS 05/15/23 07/31/23 History biotin 5 mg tablet 5 mg PO QAM 05/15/23 07/31/23 History citalopram 20 mg tablet 20 mg PO QAM 05/15/23 07/31/23 History clopidogrel 75 mg tablet 75 mg PO DAILY 05/15/23 07/31/23 History donepezil 10 mg tablet 10 mg PO DAILY 05/15/23 07/31/23 History empagliflozin 25 mg tablet 25 mg PO DAILY 05/15/23 07/31/23 History gabapentin 100 mg capsule 100 mg PO BID 05/15/23 07/31/23 History isosorbide mononitrate 30 mg 30 mg PO DAILY 05/15/23 07/31/23 History tablet,extended release 24 hr loperamide 2 mg capsule 2 mg PO QAM 05/15/23 07/31/23 History meclizine 25 mg tablet 25 mg PO DAILY PRN dizzyness 05/15/23 07/31/23 History melatonin 10 mg tablet 10 mg PO HS 05/15/23 07/31/23 History metformin 500 mg tablet,extended 500 mg PO BID 05/15/23 07/31/23 History release 24 hr metoprolol succinate 50 mg 50 mg PO QAM 05/15/23 07/31/23 History tablet,extended release 24 hr multivitamin 1 tab PO DAILY 05/15/23 07/31/23 History omega-3 fatty acids 1,000 mg 1,000 mg PO DAILY 05/15/23 07/31/23 History capsule semaglutide 7 mg tablet (Rybelsus) 7 mg PO QAM 05/15/23 07/31/23 History Patient History Medical History Diabetic neuropathy CAD (coronary artery disease) Diabetes mellitus, type 2 History of colon cancer 2017--sx/oral chemo History of prostate cancer 2013--sx/radiation History of deep vein thrombosis (DVT) of lower extremity right leg---no blood thinners Hearing deficit Depression Dementia Hypertension Hyperlipidemia Myocardial Infarction hx of NSTEMI in setting of sepsis July [address] segment elevation myocardial manage medically, occurring in the setting of acute sepsis secondary abdominal abscess following colon resection for colon cancer. Sleep apnea cpap Surgical History History of open reduction and internal fixation (ORIF) procedure right ankle--no hardware History of left shoulder replacement History of right shoulder replacement History of revision of total replacement of right hip joint History of total right hip replacement History of total left hip replacement History of colon resection 2018 @ [facility] [place] d/t cancer History of prostatectomy d/t cancer History of prostate biopsy malignant History of tooth extraction all teeth History of bilateral cataract extraction H/O colectomy S/P cataract surgery S/P hip replacement Family History Denies family history of Heart disease Social History Smoking Status: Never smoker Second Hand Exposure: No; Do You Dip or Chew Tobacco: No; Hx Alcohol Use: Yes Alcohol type: beer Alcohol Intake Frequency Comment: few times per week Hx Substance Use: No Preferred Language: Azeri Communication Ability: Effective Ice Handler Required: No Beliefs That Will Affect Care: None marital status: Current Living Situation: Spouse Other Information That Helps Us Care for You: Yes ( unable to care for him at home due to fall risk) Feels Safe at Home: Yes Safety Concerns: Feels Safe At This Time Assistive Devices: CPAP and Walker Review of Systems Review of Systems: Unobtainable due to cognitive status Physical Exam Physical Exam: Confused at baseline garbled speech bitemp wasting perrl MM dry dentition poor coarse rhonchi inc resp effort tachy s1s2 abd non tender/no grimacing, bs + skin pale/warm unable to follow commands non sensical/unintelligble speech /GI incontinence Results & Data Vital Signs (Past 12 Hours) Vital Signs Temp Pulse Pulse Pulse Resp BP Pulse Ox 08/03/23 15:01 36.7 C 67 19 146/90 H 98 08/03/23 11:22 36.3 C L 74 16 122/74 97 08/03/23 10:56 08/03/23 10:55 62 08/03/23 09:22 118/72 08/03/23 07:47 36.3 C L 86 18 175/102 H 98 08/03/23 03:39 36.3 C L 86 20 152/96 H 94 O2 Del Method 08/03/23 15:01 Room Air 08/03/23 11:22 Room Air 08/03/23 10:56 Room Air 08/03/23 10:55 08/03/23 09:22 08/03/23 07:47 Room Air 08/03/23 03:39 Room Air Laboratory Results data reviewed Diagnostic Findings data reviewed PG Care Time/CCT Total # of Minutes Spent Total Time Spent: 125 Total Time Spent with Patient: Total time spent is greater than 50% in coordination of care (as documented) at patient's floor/unit and/or counseling patient: I spent 125 minutes overall addressing this complex case: 20 min in medical data review/discussion with referring provider(s) and/or preparation for the visit 15 min in direct interaction with the patient/exam 60 min in Advance Care Planning/Goals of Care discussions as detailed above in note (must be >16min) 15 min in subsequent review and synthesis of assessment and plan 15 min communicating with other providers regarding the patient's case: Advanced Care Planning 94472 Advanced Care Planning 30 Min 57334 Advanced Care Planning Additional 30 [place] [address] IN/OBS CONSULT LVL 5,80M Patient Type New History Comprehensive Exam Comprehensive Medical Decision Making High Complexity Diagnoses Dyspnea and respiratory abnormalities R06.00; R06.89 Weakness generalized R53.1 Dementia with behavioral disturbance F03.918 Confusion R41.0 Discussion about advance care planning held with family member Z71.0 COVID U07.1 Palliative care by specialist Z51.5 Frequent falls R29.6 Bacteremia due to methicillin resistant Staphylococcus aureus R78.81; B95.62 Paroxysmal atrial fibrillation I48.0 LAFB (left anterior fascicular block) I44.4 Mobitz type 1 second degree AV block I44.1 Additional Codes Advanced Care Planning - 78583 Advanced Care Planning 30 Min: 61416 Advanced Care Planning 30 Min ([id number]) Advanced Care Planning - 80996 Advanced Care Planning Additional 30 Min: 43599 Advanced Care Planning Additional 30 Min ([id number])
[2023-08-03] MEDS: MELATONIN 3 MG TAB PO SCH (20:55)
[2023-08-03] MEDS: DOCUSATE SODIUM 100 MG CAP PO SCH (20:56)
[2023-08-03] MEDS: ATORVASTATIN 40 MG TAB PO SCH (20:56)
[2023-08-04] MEDS: CITALOPRAM 20 MG TAB PO SCH (08:45)
[2023-08-04] MEDS: DOCUSATE SODIUM 100 MG CAP PO SCH ×2 (08:45→20:47)
[2023-08-04] MEDS: ASPIRIN 81 MG ECTAB PO SCH (08:45)
[2023-08-04] MEDS: CLOPIDOGREL BISULFATE 75 MG TAB PO SCH (08:45)
[2023-08-04] MEDS: METOPROLOL SUCC 50MG EXT REL TAB PO SCH (08:45)
[2023-08-04] MEDS: ISOSORBIDE MONO EXTENDED REL 30 MG TABCR PO SCH (08:45)
[2023-08-04] MEDS: MULTIVITAMIN TAB PO SCH (08:45)
[2023-08-04] MEDS: DONEPEZIL HCL 10 MG TAB PO SCH (08:45)
[2023-08-04] MEDS: GABAPENTIN 100 MG CAP PO SCH ×2 (08:46→20:46)
[2023-08-04] MEDS: INSULIN ASPART PER UNIT CHARGE SC SCH ×4 (08:55→20:44)
[2023-08-04] MEDS: LANTUS PER UNIT CHARGE SQ SCH (08:55)
--- NOTE | 2023-08-04 16:29 | Hospitalist Progress Note ---
Date of Service August 04, 2023 Assessment & Plan (1) AMS (altered mental status): Plan: COVID 19 infection Bio fire positive for COVID-19 Acute metabolic encephalopathy--POA due to above --CT Chest: No acute findings in the chest. Check procalcitonin, CRP No hypoxia currently Isolation precautions--Airborne/Contact Albuterol, supplemental Oxygen as needed Continue conservative management Waiting for rehab placement Unwitnessed Fall Multiple contusions, abrasions secondary to fall Head CT:No acute findings in the head/brain. CT ABD:No acute findings in the abdomen or pelvis. Imaging studies showed no fractures Fall precautions PT OT as able Wound care nurse consulted Rehab as able Continue wound care Denies any pain at site of wounds H/O Dementia UA not suggestive of UTI Reorient frequently to minimize delirium Continue home medications Chronic diastolic heart failure EF 60-65%, TTE 2022 No signs of exacerbation CAD S/P CABG SSS S/P PPM Valvular heart disease (mild /MR/TR) Continue home medications Hypertension Hyperlipidemia Continue home medications Colon cancer s/p surgery/incomplete chemotherapy Prostate cancer s/p radiation, currently in remission DM II Last HbA1C: 8.6 Hold p.o. meds Continue insulin while hospitalized Monitor BGs H/O DVT H/O MRSA bacteremia As per records DVT Px: SCDs Re: contusions/abrasions On aspirin, Plavix CODE STATUS DNR/DNI Disposition Plan to discharge to rehab when accepted Admission and Anticipated Discharge Date Admission Date: July 31, 2023 Subjective Patient is seen and examined at bedside Sitting in chair during my encounter Offers no complaints Denies any chest pain, dyspnea, dizziness, nausea, vomiting, abdominal pain Waiting for placement Review of Systems Review of Systems: All systems reviewed & are unremarkable except as noted in Subjective Physical Exam Physical Exam: Physical Exam: Vitals signs as noted above General Appearance:Moderately built and nourished, no apparent distress Head: normocephalic, Atraumatic Eyes: normal inspection, EOMI Neck: supple, Trachea midline Respiratory/Chest: Decreased breath sounds, CTA, No accessory muscle use Cardiovascular: S1, S2, +murmur Abdomen/GI:Soft, Non tender, Bowel sounds present Extremities/Musculoskeletal:normal inspection, Trace edema Neurologic/Psych:AAOX2, grossly no focal neurological deficits,+ Dementia Skin: normal color, warm, +Multiple abrasions on extremities Results & Data Results & Data Vital Signs (Past 12 Hours) Vital Signs Temp Pulse Resp BP BP Pulse Ox O2 Del Method 08/04/23 12:48 36.4 C L 65 18 101/57 L 96 Room Air 08/04/23 08:45 Room Air 08/04/23 08:42 36 C L 60 18 187/80 H 94 Room Air
[2023-08-04] MEDS: MELATONIN 3 MG TAB PO SCH (20:45)
[2023-08-04] MEDS: ATORVASTATIN 40 MG TAB PO SCH (20:46)
[2023-08-05 05:43] LABS: Hematocrit (blood only) 41.5 % (42.0-52.0); Hemoglobin 13.8 g/dl (14.0-18.0); Mean Corpuscular Hemoglobin 29.9 pg (25.0-34.0); Mean Corpuscular Hgb Conc 33.3 g/dL (32.0-36.0); Mean Platelet Volume 10.5 fL (9.4-12.4); Platelet Count 182 K/uL (130-400); RDW Coefficient of Variation 14.6 % (11.5-14.5); RDW Standard Deviation 47.5 fL (36.4-46.3); Red Blood Count 4.61 M/uL (4.70-6.10); White Blood Count 7.13 K/ul (4.8-10.8)
[2023-08-05 05:47] LABS: Calcium 9.3 mg/dl (8.6-10.3); Creatinine Clr Calc Pharmacy 57.9 ml/min; Est GFR (African American) 67.6 ml/min; Est GFR (Non-African American) 58.3 ml/min; Potassium 4.1 mmol/L (3.5-5.1)
[2023-08-05] MEDS: GABAPENTIN 100 MG CAP PO SCH ×2 (08:49→19:52)
[2023-08-05] MEDS: ASPIRIN 81 MG ECTAB PO SCH (08:49)
[2023-08-05] MEDS: DONEPEZIL HCL 10 MG TAB PO SCH (08:49)
[2023-08-05] MEDS: ISOSORBIDE MONO EXTENDED REL 30 MG TABCR PO SCH (08:50)
[2023-08-05] MEDS: CITALOPRAM 20 MG TAB PO SCH (08:50)
[2023-08-05] MEDS: CLOPIDOGREL BISULFATE 75 MG TAB PO SCH (08:50)
[2023-08-05] MEDS: MULTIVITAMIN TAB PO SCH (08:50)
[2023-08-05] MEDS: DOCUSATE SODIUM 100 MG CAP PO SCH ×2 (08:51→19:53)
[2023-08-05] MEDS: METOPROLOL SUCC 50MG EXT REL TAB PO SCH (08:51)
[2023-08-05] MEDS: INSULIN ASPART PER UNIT CHARGE SC SCH ×4 (09:01→21:13)
[2023-08-05] MEDS: LANTUS PER UNIT CHARGE SQ SCH (09:02)
--- NOTE | 2023-08-05 13:54 | Hospitalist Progress Note ---
Date of Service August 05, 2023 Assessment & Plan (1) AMS (altered mental status): Plan: COVID 19 infection Bio fire positive for COVID-19 Acute metabolic encephalopathy--POA due to above Patient was brought to the hospital due to altered mental status. BioFire positive for COVID-19 infection --CT Chest: No acute findings in the chest. No hypoxia currently Isolation precautions--Airborne/Contact Albuterol, supplemental Oxygen as needed Continue conservative management Waiting for rehab placement Unwitnessed Fall Multiple contusions, abrasions secondary to fall Head CT:No acute findings in the head/brain. CT ABD:No acute findings in the abdomen or pelvis. Imaging studies showed no fractures Fall precautions PT OT as able Wound care nurse consulted Rehab as able Continue wound care Denies any pain at site of wounds H/O Dementia UA not suggestive of UTI Reorient frequently to minimize delirium Continue home medications Chronic diastolic heart failure EF 60-65%, TTE 2022 No signs of exacerbation CAD S/P CABG SSS S/P PPM Valvular heart disease (mild /MR/TR) Continue home medications Hypertension Hyperlipidemia Continue home medications Colon cancer s/p surgery/incomplete chemotherapy Prostate cancer s/p radiation, currently in remission DM II Last HbA1C: 8.6 Hold p.o. meds Continue insulin while hospitalized Monitor BGs DVT Px: Heparin CODE STATUS DNR/DNI Disposition Plan to discharge to rehab when accepted. Patient medically stable for transfer. Please note the above document was generated using voice recognition software. It may contain grammatical, syntax or spelling errors. Any formal questions or concerns about the content, text or information contained within the body of this dictation should be directly addressed to the provider for clarification Admission and Anticipated Discharge Date Admission Date: July 31, 2023 Subjective Patient seen and examined at bedside. Comfortable; not in distress. Denies fever, chills, chest pain, shortness of breath, abdominal pain or urinary symptoms. No significant overnight events Review of Systems Review of Systems: All systems reviewed & are unremarkable except as noted in Subjective Physical Exam Physical Exam: Physical Exam: Vitals signs as noted above General Appearance:Moderately built and nourished, no apparent distress Respiratory/Chest: Bilateral clear breath sounds Cardiovascular: S1, S2, +murmur Abdomen/GI:Soft, Non tender, Bowel sounds present Extremities/Musculoskeletal:normal inspection, Trace edema Neurologic/Psych:AAOX2, grossly no focal neurological deficits,+ Dementia Skin: normal color, warm, +Multiple abrasions on extremities Results & Data Results & Data Vital Signs (Past 12 Hours) Vital Signs Temp Pulse Resp BP Pulse Ox O2 Del Method 08/05/23 11:57 36.7 C 59 L 20 103/65 94 Room Air 08/05/23 10:49 36.4 C L 69 20 112/72 96 Room Air 08/05/23 09:01 36.4 C L 61 20 151/91 H 96 Room Air 08/05/23 07:39 Room Air
[2023-08-05] MEDS: HEPARIN SOD 5,000 UNIT/0.5 ML VIAL SQ SCH ×2 (15:23→20:46)
[2023-08-05] MEDS: ATORVASTATIN 40 MG TAB PO SCH (19:53)
[2023-08-05] MEDS: MELATONIN 3 MG TAB PO SCH (20:48)
[2023-08-06] MEDS: HEPARIN SOD 5,000 UNIT/0.5 ML VIAL SQ SCH ×3 (05:06→20:42)
[2023-08-06 06:40] LABS: Basophils # (auto) 0.02 K/uL (0.00-0.20); Basophils % (auto) 0.3 %; Eosinophils # (auto) 0.09 K/uL (0.00-0.50); Eosinophils % (auto) 1.4 %; Hematocrit (blood only) 39.9 % (42.0-52.0); Hemoglobin 13.2 g/dl (14.0-18.0); Immature Granulocytes # (auto) 0.05 K/uL (0.01-0.20); Immature Granulocytes % (auto) 0.8 %; Lymphocytes # (auto) 1.55 K/uL (1.20-3.40); Lymphocytes % (auto) 23.9 %; Mean Corpuscular Hemoglobin 29.8 pg (25.0-34.0); Mean Corpuscular Hgb Conc 33.1 g/dL (32.0-36.0); Mean Corpuscular Volume 90.1 fL (80.0-100.0); Mean Platelet Volume 10.2 fL (9.4-12.4); Monocytes # (auto) 0.63 K/uL (0.11-0.59); Monocytes % (auto) 9.7 %; Neutrophils # (auto) 4.15 K/uL (1.40-6.50); Neutrophils % (auto) 63.9 %; Platelet Count 164 K/uL (130-400); RDW Coefficient of Variation 14.6 % (11.5-14.5); RDW Standard Deviation 47.6 fL (36.4-46.3); Red Blood Count 4.43 M/uL (4.70-6.10); White Blood Count 6.49 K/ul (4.8-10.8)
[2023-08-06 07:23] LABS: BUN Creatinine Ratio 28.6 (10-20); Calcium 9.1 mg/dl (8.6-10.3); Creatinine Clr Calc Pharmacy 66.2 ml/min; Est GFR (African American) 79.5 ml/min; Est GFR (Non-African American) 68.6 ml/min
[2023-08-06] MEDS: INSULIN ASPART PER UNIT CHARGE SC SCH ×4 (08:08→20:41)
[2023-08-06] MEDS: LANTUS PER UNIT CHARGE SQ SCH (08:08)
[2023-08-06] MEDS: CITALOPRAM 20 MG TAB PO SCH (08:24)
[2023-08-06] MEDS: DOCUSATE SODIUM 100 MG CAP PO SCH ×2 (08:24→20:42)
[2023-08-06] MEDS: CLOPIDOGREL BISULFATE 75 MG TAB PO SCH (08:24)
[2023-08-06] MEDS: MULTIVITAMIN TAB PO SCH (08:25)
[2023-08-06] MEDS: DONEPEZIL HCL 10 MG TAB PO SCH (08:25)
[2023-08-06] MEDS: ISOSORBIDE MONO EXTENDED REL 30 MG TABCR PO SCH (08:25)
[2023-08-06] MEDS: METOPROLOL SUCC 50MG EXT REL TAB PO SCH (08:26)
[2023-08-06] MEDS: ASPIRIN 81 MG ECTAB PO SCH (08:26)
[2023-08-06] MEDS: GABAPENTIN 100 MG CAP PO SCH ×2 (08:26→19:57)
--- NOTE | 2023-08-06 14:11 | Hospitalist Progress Note ---
Date of Service August 06, 2023 Assessment & Plan (1) AMS (altered mental status): Plan: COVID 19 infection Bio fire positive for COVID-19 Acute metabolic encephalopathy--POA due to above Patient was brought to the hospital due to altered mental status. BioFire positive for COVID-19 infection --CT Chest: No acute findings in the chest. No hypoxia currently Isolation precautions--Airborne/Contact Albuterol, supplemental Oxygen as needed Continue conservative management Waiting for rehab placement Unwitnessed Fall Multiple contusions, abrasions secondary to fall Head CT:No acute findings in the head/brain. CT ABD:No acute findings in the abdomen or pelvis. Imaging studies showed no fractures Fall precautions PT OT as able Wound care nurse consulted Continue wound care Denies any pain at site of wounds H/O Dementia UA not suggestive of UTI Reorient frequently to minimize delirium Continue home medications Chronic diastolic heart failure EF 60-65%, TTE 2022 No signs of exacerbation CAD S/P CABG SSS S/P PPM Valvular heart disease (mild /MR/TR) Continue home medications Hypertension Hyperlipidemia Continue home medications Colon cancer s/p surgery/incomplete chemotherapy Prostate cancer s/p radiation, currently in remission DM II Last HbA1C: 8.6 Hold p.o. meds Continue insulin while hospitalized Monitor BGs DVT Px: Heparin CODE STATUS DNR/DNI Disposition Plan to discharge to rehab when accepted. Patient medically stable for transfer. Please note the above document was generated using voice recognition software. It may contain grammatical, syntax or spelling errors. Any formal questions or concerns about the content, text or information contained within the body of this dictation should be directly addressed to the provider for clarification Admission and Anticipated Discharge Date Admission Date: July 31, 2023 Subjective Patient seen and examined at bedside. Comfortable; not in distress. His is also at bedside. Denies fever, chills, chest pain, shortness of breath, abdominal pain or urinary symptoms. No significant overnight events Review of Systems Review of Systems: All systems reviewed & are unremarkable except as noted in Subjective Physical Exam Physical Exam: Physical Exam: Vitals signs as noted above General Appearance:Moderately built and nourished, no apparent distress Respiratory/Chest: Bilateral clear breath sounds Cardiovascular: S1, S2, +murmur Abdomen/GI:Soft, Non tender, Bowel sounds present Extremities/Musculoskeletal:normal inspection, Trace edema Neurologic/Psych:AAOX2, grossly no focal neurological deficits,+ Dementia Skin: normal color, warm, +Multiple abrasions on extremities Results & Data Results & Data Vital Signs (Past 12 Hours) Vital Signs Temp Pulse Resp BP Pulse Ox O2 Del Method 08/06/23 08:27 61 95 Room Air 08/06/23 07:00 36.3 C L 59 L 16 158/81 H 95 Room Air
[2023-08-06] MEDS: ATORVASTATIN 40 MG TAB PO SCH (19:58)
[2023-08-06] MEDS: MELATONIN 3 MG TAB PO SCH (20:42)
[2023-08-07] MEDS: HEPARIN SOD 5,000 UNIT/0.5 ML VIAL SQ SCH ×3 (05:33→20:23)
[2023-08-07] MEDS: INSULIN ASPART PER UNIT CHARGE SC SCH ×4 (08:14→20:16)
[2023-08-07] MEDS: LANTUS PER UNIT CHARGE SQ SCH (08:15)
[2023-08-07] MEDS: ISOSORBIDE MONO EXTENDED REL 30 MG TABCR PO SCH (08:23)
[2023-08-07] MEDS: GABAPENTIN 100 MG CAP PO SCH ×2 (08:23→19:44)
[2023-08-07] MEDS: MULTIVITAMIN TAB PO SCH (08:23)
[2023-08-07] MEDS: DONEPEZIL HCL 10 MG TAB PO SCH (08:24)
[2023-08-07] MEDS: ASPIRIN 81 MG ECTAB PO SCH (08:24)
[2023-08-07] MEDS: METOPROLOL SUCC 50MG EXT REL TAB PO SCH (08:24)
[2023-08-07] MEDS: CLOPIDOGREL BISULFATE 75 MG TAB PO SCH (08:24)
[2023-08-07] MEDS: CITALOPRAM 20 MG TAB PO SCH (08:25)
[2023-08-07] MEDS: DOCUSATE SODIUM 100 MG CAP PO SCH ×2 (08:27→20:23)
--- NOTE | 2023-08-07 16:00 | Hospitalist Progress Note ---
Date of Service August 07, 2023 Assessment & Plan (1) AMS (altered mental status): Plan: COVID 19 infection Bio fire positive for COVID-19 Acute metabolic encephalopathy--POA due to above Patient was brought to the hospital due to altered mental status. BioFire positive for COVID-19 infection --CT Chest: No acute findings in the chest. No hypoxia currently Isolation precautions--Airborne/Contact Albuterol, supplemental Oxygen as needed Continue conservative management Waiting for rehab placement Unwitnessed Fall Multiple contusions, abrasions secondary to fall Head CT:No acute findings in the head/brain. CT ABD:No acute findings in the abdomen or pelvis. Imaging studies showed no fractures Fall precautions PT OT as able Wound care nurse consulted Continue wound care Denies any pain at site of wounds H/O Dementia UA not suggestive of UTI Reorient frequently to minimize delirium Continue home medications Chronic diastolic heart failure EF 60-65%, TTE 2022 No signs of exacerbation CAD S/P CABG SSS S/P PPM Valvular heart disease (mild /MR/TR) Continue home medications Hypertension Hyperlipidemia Continue home medications Colon cancer s/p surgery/incomplete chemotherapy Prostate cancer s/p radiation, currently in remission DM II Last HbA1C: 8.6 Hold p.o. meds Continue insulin while hospitalized Monitor BGs DVT Px: Heparin CODE STATUS DNR/DNI Disposition Plan to discharge to rehab when accepted. Patient medically stable for transfer. Please note the above document was generated using voice recognition software. It may contain grammatical, syntax or spelling errors. Any formal questions or concerns about the content, text or information contained within the body of this dictation should be directly addressed to the provider for clarification Admission and Anticipated Discharge Date Admission Date: July 31, 2023 Subjective Patient seen and examined at bedside. Comfortable; not in distress. He reports he wants to go home. Denies fever, chills, chest pain, shortness of breath, abdominal pain or urinary symptoms. No significant overnight events Review of Systems Review of Systems: All systems reviewed & are unremarkable except as noted in Subjective Physical Exam Physical Exam: Physical Exam: Vitals signs as noted above General Appearance:Moderately built and nourished, no apparent distress Respiratory/Chest: Bilateral clear breath sounds Cardiovascular: S1, S2, +murmur Abdomen/GI:Soft, Non tender, Bowel sounds present Extremities/Musculoskeletal:normal inspection, Trace edema Neurologic/Psych:AAOX2, grossly no focal neurological deficits,+ Dementia Skin: normal color, warm, +Multiple abrasions on extremities Results & Data Results & Data Vital Signs (Past 12 Hours) Vital Signs Temp Pulse Resp BP Pulse Ox O2 Del Method 08/07/23 07:14 Room Air 08/07/23 07:11 36.3 C L 65 18 138/80 99 Room Air
[2023-08-07] MEDS: ATORVASTATIN 40 MG TAB PO SCH (19:43)
[2023-08-07] MEDS: MELATONIN 3 MG TAB PO SCH (19:43)
[2023-08-08] MEDS: HEPARIN SOD 5,000 UNIT/0.5 ML VIAL SQ SCH ×3 (05:22→20:54)
[2023-08-08 06:23] LABS: Basophils # (auto) 0.04 K/uL (0.00-0.20); Basophils % (auto) 0.6 %; Eosinophils # (auto) 0.17 K/uL (0.00-0.50); Eosinophils % (auto) 2.6 %; Hematocrit (blood only) 38.4 % (42.0-52.0); Immature Granulocytes # (auto) 0.06 K/uL (0.01-0.20); Immature Granulocytes % (auto) 0.9 %; Lymphocytes # (auto) 1.73 K/uL (1.20-3.40); Lymphocytes % (auto) 26.1 %; Mean Corpuscular Hgb Conc 33.9 g/dL (32.0-36.0); Mean Corpuscular Volume 88.5 fL (80.0-100.0); Monocytes # (auto) 0.66 K/uL (0.11-0.59); Monocytes % (auto) 9.9 %; Neutrophils # (auto) 3.98 K/uL (1.40-6.50); Neutrophils % (auto) 59.9 %; Platelet Count 175 K/uL (130-400); RDW Coefficient of Variation 14.5 % (11.5-14.5); RDW Standard Deviation 46.1 fL (36.4-46.3); Red Blood Count 4.34 M/uL (4.70-6.10); White Blood Count 6.64 K/ul (4.8-10.8)
[2023-08-08 06:38] LABS: BUN Creatinine Ratio 33.3 (10-20); Calcium 9.2 mg/dl (8.6-10.3); Creatinine Clr Calc Pharmacy 65.6 ml/min; Est GFR (African American) 78.5 ml/min; Est GFR (Non-African American) 67.7 ml/min
[2023-08-08] MEDS: INSULIN ASPART PER UNIT CHARGE SC SCH ×4 (08:49→20:50)
[2023-08-08] MEDS: LANTUS PER UNIT CHARGE SQ SCH (08:49)
[2023-08-08] MEDS: MULTIVITAMIN TAB PO SCH (08:57)
[2023-08-08] MEDS: DONEPEZIL HCL 10 MG TAB PO SCH (08:57)
[2023-08-08] MEDS: ASPIRIN 81 MG ECTAB PO SCH (08:57)
[2023-08-08] MEDS: CITALOPRAM 20 MG TAB PO SCH (08:57)
[2023-08-08] MEDS: CLOPIDOGREL BISULFATE 75 MG TAB PO SCH (08:57)
[2023-08-08] MEDS: ISOSORBIDE MONO EXTENDED REL 30 MG TABCR PO SCH (08:58)
[2023-08-08] MEDS: METOPROLOL SUCC 50MG EXT REL TAB PO SCH (08:58)
[2023-08-08] MEDS: GABAPENTIN 100 MG CAP PO SCH ×2 (08:58→20:53)
[2023-08-08] MEDS: DOCUSATE SODIUM 100 MG CAP PO SCH ×2 (09:43→20:58)
--- NOTE | 2023-08-08 12:36 | Hospitalist Progress Note ---
Date of Service August 08, 2023 Assessment & Plan (1) AMS (altered mental status): Plan: COVID 19 infection Bio fire positive for COVID-19 Acute metabolic encephalopathy--POA due to above Patient was brought to the hospital due to altered mental status. BioFire positive for COVID-19 infection --CT Chest: No acute findings in the chest. No hypoxia currently Isolation precautions--Airborne/Contact Albuterol, supplemental Oxygen as needed Continue conservative management Waiting for rehab placement Unwitnessed Fall Multiple contusions, abrasions secondary to fall Head CT:No acute findings in the head/brain. CT ABD:No acute findings in the abdomen or pelvis. Imaging studies showed no fractures Fall precautions PT OT as able Wound care nurse consulted Continue wound care Denies any pain at site of wounds H/O Dementia UA not suggestive of UTI Reorient frequently to minimize delirium Continue home medications Chronic diastolic heart failure EF 60-65%, TTE 2022 No signs of exacerbation CAD S/P CABG SSS S/P PPM Valvular heart disease (mild /MR/TR) Continue home medications Hypertension Hyperlipidemia Continue home medications Colon cancer s/p surgery/incomplete chemotherapy Prostate cancer s/p radiation, currently in remission DM II Last HbA1C: 8.6 Hold p.o. meds Continue insulin while hospitalized Monitor BGs DVT Px: Heparin CODE STATUS DNR/DNI Disposition Plan to discharge to rehab when accepted. Patient medically stable for transfer. Please note the above document was generated using voice recognition software. It may contain grammatical, syntax or spelling errors. Any formal questions or concerns about the content, text or information contained within the body of this dictation should be directly addressed to the provider for clarification Admission and Anticipated Discharge Date Admission Date: July 31, 2023 Subjective Patient seen and examined at bedside. He is comfortable lying in the bed; not in distress. He denies fever, chills, cough or shortness of breath. No significant overnight events. Review of Systems Review of Systems: All systems reviewed & are unremarkable except as noted in Subjective Physical Exam Physical Exam: Physical Exam: Vitals signs as noted above General Appearance:Moderately built and nourished, no apparent distress Respiratory/Chest: Bilateral clear breath sounds Cardiovascular: S1, S2, +murmur Abdomen/GI:Soft, Non tender, Bowel sounds present Extremities/Musculoskeletal:normal inspection, Trace edema Neurologic/Psych:AAOX2, grossly no focal neurological deficits,+ Dementia Skin: normal color, warm, +Multiple abrasions on extremities Results & Data Results & Data Vital Signs (Past 12 Hours) Vital Signs Temp Pulse Resp BP Pulse Ox O2 Del Method 08/08/23 07:29 36.4 C L 70 16 138/87 100 Room Air 08/08/23 07:25 Room Air
[2023-08-08] MEDS: ATORVASTATIN 40 MG TAB PO SCH (20:53)
[2023-08-08] MEDS: MELATONIN 3 MG TAB PO SCH (20:58)
[2023-08-09] MEDS: HEPARIN SOD 5,000 UNIT/0.5 ML VIAL SQ SCH ×3 (06:05→21:05)
[2023-08-09] MEDS: INSULIN ASPART PER UNIT CHARGE SC SCH ×4 (08:25→21:23)
[2023-08-09] MEDS: LANTUS PER UNIT CHARGE SQ SCH (08:26)
[2023-08-09] MEDS: ISOSORBIDE MONO EXTENDED REL 30 MG TABCR PO SCH (08:32)
[2023-08-09] MEDS: CLOPIDOGREL BISULFATE 75 MG TAB PO SCH (08:32)
[2023-08-09] MEDS: CITALOPRAM 20 MG TAB PO SCH (08:32)
[2023-08-09] MEDS: METOPROLOL SUCC 50MG EXT REL TAB PO SCH (08:32)
[2023-08-09] MEDS: DONEPEZIL HCL 10 MG TAB PO SCH (08:32)
[2023-08-09] MEDS: MULTIVITAMIN TAB PO SCH (08:33)
[2023-08-09] MEDS: GABAPENTIN 100 MG CAP PO SCH ×2 (08:33→21:05)
[2023-08-09] MEDS: ASPIRIN 81 MG ECTAB PO SCH (08:33)
[2023-08-09] MEDS: DOCUSATE SODIUM 100 MG CAP PO SCH ×2 (09:38→21:06)
--- NOTE | 2023-08-09 13:49 | Hospitalist Progress Note ---
Date of Service August 09, 2023 Assessment & Plan (1) AMS (altered mental status): Plan: COVID 19 infection Bio fire positive for COVID-19 Acute metabolic encephalopathy--POA due to above Patient was brought to the hospital due to altered mental status. BioFire positive for COVID-19 infection on July 31, 2023 --CT Chest: No acute findings in the chest. No hypoxia currently Can be off isolation from August 10, 2023 Albuterol, supplemental Oxygen as needed Continue conservative management Waiting for rehab placement Unwitnessed Fall Multiple contusions, abrasions secondary to fall Head CT:No acute findings in the head/brain. CT ABD:No acute findings in the abdomen or pelvis. Imaging studies showed no fractures Fall precautions PT OT as able Wound care nurse consulted Continue wound care Denies any pain at site of wounds H/O Dementia UA not suggestive of UTI Reorient frequently to minimize delirium Continue home medications Chronic diastolic heart failure EF 60-65%, TTE 2022 No signs of exacerbation CAD S/P CABG SSS S/P PPM Valvular heart disease (mild /MR/TR) Continue home medications Hypertension Hyperlipidemia Continue home medications Colon cancer s/p surgery/incomplete chemotherapy Prostate cancer s/p radiation, currently in remission DM II Last HbA1C: 8.6 Hold p.o. meds Continue insulin while hospitalized Monitor BGs DVT Px: Heparin CODE STATUS DNR/DNI Disposition Plan to discharge to rehab when accepted. Patient medically stable for transfer. Please note the above document was generated using voice recognition software. It may contain grammatical, syntax or spelling errors. Any formal questions or concerns about the content, text or information contained within the body of this dictation should be directly addressed to the provider for clarification Admission and Anticipated Discharge Date Admission Date: July 31, 2023 Subjective Patient seen and examined at bedside. He is comfortable lying in the bed; not in distress. He appears to be confused but easily redirected.. Denies any pain or discomfort. Review of Systems Review of Systems: All systems reviewed & are unremarkable except as noted in Subjective Physical Exam Physical Exam: Physical Exam: Vitals signs as noted above General Appearance:Moderately built and nourished, no apparent distress Respiratory/Chest: Bilateral clear breath sounds Cardiovascular: S1, S2, +murmur Abdomen/GI:Soft, Non tender, Bowel sounds present Extremities/Musculoskeletal:normal inspection, Trace edema Neurologic/Psych:AAOX2, grossly no focal neurological deficits,+ Dementia Skin: normal color, warm, +Multiple abrasions on extremities Results & Data Results & Data Vital Signs (Past 12 Hours) Vital Signs Temp Pulse Resp BP Pulse Ox O2 Del Method 08/09/23 07:30 Room Air 08/09/23 07:22 36.6 C 73 16 134/78 96 Room Air
[2023-08-09] MEDS: MELATONIN 3 MG TAB PO SCH (21:06)
[2023-08-09] MEDS: ATORVASTATIN 40 MG TAB PO SCH (21:06)
[2023-08-10] MEDS: HEPARIN SOD 5,000 UNIT/0.5 ML VIAL SQ SCH ×3 (05:53→22:07)
[2023-08-10 07:47] LABS: Basophils # (auto) 0.03 K/uL (0.00-0.20); Basophils % (auto) 0.5 %; Eosinophils # (auto) 0.12 K/uL (0.00-0.50); Eosinophils % (auto) 1.8 %; Hematocrit (blood only) 37.7 % (42.0-52.0); Hemoglobin 12.4 g/dl (14.0-18.0); Immature Granulocytes # (auto) 0.08 K/uL (0.01-0.20); Immature Granulocytes % (auto) 1.2 %; Lymphocytes # (auto) 1.53 K/uL (1.20-3.40); Lymphocytes % (auto) 23.1 %; Mean Corpuscular Hemoglobin 29.8 pg (25.0-34.0); Mean Corpuscular Hgb Conc 32.9 g/dL (32.0-36.0); Mean Corpuscular Volume 90.6 fL (80.0-100.0); Mean Platelet Volume 10.1 fL (9.4-12.4); Monocytes % (auto) 12.1 %; Neutrophils # (auto) 4.07 K/uL (1.40-6.50); Neutrophils % (auto) 61.3 %; Platelet Count 186 K/uL (130-400); RDW Coefficient of Variation 14.7 % (11.5-14.5); Red Blood Count 4.16 M/uL (4.70-6.10); White Blood Count 6.63 K/ul (4.8-10.8)
[2023-08-10 08:15] LABS: BUN Creatinine Ratio 31.5 (10-20); Calcium 9.4 mg/dl (8.6-10.3); Creatinine Clr Calc Pharmacy 71.2 ml/min; Est GFR (African American) 88.5 ml/min; Est GFR (Non-African American) 76.3 ml/min; Potassium 4.1 mmol/L (3.5-5.1)
[2023-08-10] MEDS: LANTUS PER UNIT CHARGE SQ SCH (08:22)
[2023-08-10] MEDS: INSULIN ASPART PER UNIT CHARGE SC SCH ×4 (08:22→21:37)
[2023-08-10] MEDS: MULTIVITAMIN TAB PO SCH (08:27)
[2023-08-10] MEDS: METOPROLOL SUCC 50MG EXT REL TAB PO SCH (08:27)
[2023-08-10] MEDS: CITALOPRAM 20 MG TAB PO SCH (08:27)
[2023-08-10] MEDS: ASPIRIN 81 MG ECTAB PO SCH (08:28)
[2023-08-10] MEDS: DONEPEZIL HCL 10 MG TAB PO SCH (08:28)
[2023-08-10] MEDS: ISOSORBIDE MONO EXTENDED REL 30 MG TABCR PO SCH (08:28)
[2023-08-10] MEDS: CLOPIDOGREL BISULFATE 75 MG TAB PO SCH (08:28)
[2023-08-10] MEDS: GABAPENTIN 100 MG CAP PO SCH ×2 (08:29→22:07)
[2023-08-10] MEDS: DOCUSATE SODIUM 100 MG CAP PO SCH ×2 (09:17→22:07)
--- NOTE | 2023-08-10 14:56 | Hospitalist Progress Note ---
Date of Service August 10, 2023 Assessment & Plan (1) AMS (altered mental status): Plan: COVID 19 infection Bio fire positive for COVID-19 Acute metabolic encephalopathy--POA due to above Patient was brought to the hospital due to altered mental status. BioFire positive for COVID-19 infection on July 31, 2023 --CT Chest: No acute findings in the chest. No hypoxia currently Off isolation Albuterol, supplemental Oxygen as needed Continue conservative management Waiting for rehab placement Unwitnessed Fall Multiple contusions, abrasions secondary to fall Head CT:No acute findings in the head/brain. CT ABD:No acute findings in the abdomen or pelvis. Imaging studies showed no fractures Fall precautions PT OT as able Wound care nurse consulted Continue wound care Denies any pain at site of wounds H/O Dementia UA not suggestive of UTI Reorient frequently to minimize delirium Continue home medications Chronic diastolic heart failure EF 60-65%, TTE 2022 No signs of exacerbation CAD S/P CABG SSS S/P PPM Valvular heart disease (mild /MR/TR) Continue home medications Hypertension Hyperlipidemia Continue home medications Colon cancer s/p surgery/incomplete chemotherapy Prostate cancer s/p radiation, currently in remission DM II Last HbA1C: 8.6 Hold p.o. meds Continue insulin while hospitalized Monitor BGs DVT Px: Heparin CODE STATUS DNR/DNI Disposition Plan to discharge to rehab when accepted. Patient medically stable for transfer. Please note the above document was generated using voice recognition software. It may contain grammatical, syntax or spelling errors. Any formal questions or concerns about the content, text or information contained within the body of this dictation should be directly addressed to the provider for clarification Admission and Anticipated Discharge Date Admission Date: July 31, 2023 Subjective Patient seen and examined at bedside. Comfortable; not in distress. Denies fever, chills, chest pain, shortness of breath, abdominal pain or urinary symptoms. No significant overnight events Review of Systems Review of Systems: All systems reviewed & are unremarkable except as noted in Subjective Physical Exam Physical Exam: Physical Exam: Vitals signs as noted above General Appearance:Moderately built and nourished, no apparent distress Respiratory/Chest: Bilateral clear breath sounds Cardiovascular: S1, S2, +murmur Abdomen/GI:Soft, Non tender, Bowel sounds present Extremities/Musculoskeletal:normal inspection, Trace edema Neurologic/Psych:AAOX2, grossly no focal neurological deficits,+ Dementia Skin: normal color, warm, +Multiple abrasions on extremities Results & Data Results & Data Vital Signs (Past 12 Hours) Vital Signs Temp Pulse Resp BP Pulse Ox O2 Del Method 08/10/23 07:25 Room Air 08/10/23 07:19 36.3 C L 62 14 149/84 H 98 Room Air
[2023-08-10] MEDS ORDERED: VANCOMYCIN CONSULT ACTIVE PRN (17:30)
[2023-08-10] MEDS ORDERED: VANCOMYCIN HCL 2,000 MG in SODIUM CHLORIDE 0.9% 500 ML IV ONE (17:45)
[2023-08-10] MEDS: MELATONIN 3 MG TAB PO SCH (22:06)
[2023-08-10] MEDS: ATORVASTATIN 40 MG TAB PO SCH (22:07)
[2023-08-11] MEDS: VANCOMYCIN HCL 1,000 MG in SODIUM CHLORIDE 0.9% 250 ML IV SCH ×2 (06:09→17:08)
[2023-08-11] MEDS: HEPARIN SOD 5,000 UNIT/0.5 ML VIAL SQ SCH ×3 (06:09→20:28)
[2023-08-11] MEDS: ASPIRIN 81 MG ECTAB PO SCH (08:08)
[2023-08-11] MEDS: ISOSORBIDE MONO EXTENDED REL 30 MG TABCR PO SCH (08:08)
[2023-08-11] MEDS: DONEPEZIL HCL 10 MG TAB PO SCH (08:08)
[2023-08-11] MEDS: DOCUSATE SODIUM 100 MG CAP PO SCH ×2 (08:08→20:27)
[2023-08-11] MEDS: CLOPIDOGREL BISULFATE 75 MG TAB PO SCH (08:08)
[2023-08-11] MEDS: METOPROLOL SUCC 50MG EXT REL TAB PO SCH (08:08)
[2023-08-11] MEDS: MULTIVITAMIN TAB PO SCH (08:08)
[2023-08-11] MEDS: CITALOPRAM 20 MG TAB PO SCH (08:08)
[2023-08-11] MEDS: GABAPENTIN 100 MG CAP PO SCH ×2 (08:08→20:27)
[2023-08-11] MEDS: INSULIN ASPART PER UNIT CHARGE SC SCH ×4 (08:10→20:28)
[2023-08-11] MEDS: LANTUS PER UNIT CHARGE SQ SCH (08:10)
--- NOTE | 2023-08-11 08:35 | Pharmacy Report ---
Pharmacy PK ABX Note - Date of Service August 11, 2023 - Assessment and Plan Assessment 88 year old M receiving empiric vancomycin for treatment of possible infection of left second toe. Physical exam yesterday revealed redness and purulent drainage of the area. Renal function stable, afebrile with no overt leukocytosis. Pertinent microbiologic data includes: left toe culture pending. Day # 2 of antimicrobial therapy. Plan Vancomycin * Loading dose: 2000 mg IV x 1 * Maintenance dose: 1000 mg IV every 12 hours * Regimen is predicted to achieve target AUC/HARISH of 400-600 mg/L.hr * Will obtain random vanco level if therapy is to be continued beyond 48 hours Pharmacy will continue to follow and will adjust dose/frequency as necessary. Thank you. Pharmacy has transitioned to AUC monitoring for vancomycin. AUC/HARISH is the preferred PK/PD target and is associated with decreased risk of nephrotoxicity compared to traditional trough targets.
[2023-08-11 10:17] LABS: Basophils # (auto) 0.03 K/uL (0.00-0.20); Basophils % (auto) 0.5 %; Eosinophils # (auto) 0.12 K/uL (0.00-0.50); Eosinophils % (auto) 1.9 %; Hematocrit (blood only) 46.5 % (42.0-52.0); Hemoglobin 14.9 g/dl (14.0-18.0); Immature Granulocytes # (auto) 0.07 K/uL (0.01-0.20); Immature Granulocytes % (auto) 1.1 %; Lymphocytes # (auto) 1.55 K/uL (1.20-3.40); Lymphocytes % (auto) 24.7 %; Mean Corpuscular Hemoglobin 29.8 pg (25.0-34.0); Mean Platelet Volume 9.8 fL (9.4-12.4); Monocytes # (auto) 0.45 K/uL (0.11-0.59); Monocytes % (auto) 7.2 %; Neutrophils # (auto) 4.06 K/uL (1.40-6.50); Neutrophils % (auto) 64.6 %; Platelet Count 228 K/uL (130-400); RDW Coefficient of Variation 14.8 % (11.5-14.5); RDW Standard Deviation 50.3 fL (36.4-46.3); White Blood Count 6.28 K/ul (4.8-10.8)
[2023-08-11 10:32] LABS: Albumin Level 4.1 gm/dl (3.4-5.0); Bilirubin,Total 0.8 mg/dl (0.2-1.0); Calcium 9.4 mg/dl (8.6-10.3); Potassium 3.6 mmol/L (3.5-5.1)
[2023-08-11 10:38] LABS: Albumin Globulin Ratio 1.2 (0.9-2); BUN Creatinine Ratio 27.7 (10-20); Creatinine Clr Calc Pharmacy 62.7 ml/min; Est GFR (African American) 76.6 ml/min; Est GFR (Non-African American) 66.1 ml/min; Globulin 3.3 gm/dl (2.5-4.0); Total Protein 7.4 gm/dl (6.0-8.3)
--- NOTE | 2023-08-11 15:17 | Hospitalist Progress Note ---
Date of Service August 11, 2023 Assessment & Plan (1) AMS (altered mental status): Plan: COVID 19 infection Bio fire positive for COVID-19 Acute metabolic encephalopathy--POA due to above Patient was brought to the hospital due to altered mental status. BioFire positive for COVID-19 infection on July 31, 2023 --CT Chest: No acute findings in the chest. No hypoxia currently Off isolation Albuterol, supplemental Oxygen as needed Continue conservative management Waiting for rehab placement Left foot Cellulitis Multiple wounds Multiple contusions, abrasions secondary to fall Head CT:No acute findings in the head/brain. CT ABD:No acute findings in the abdomen or pelvis. Imaging studies showed no fractures Noticed to have redness and open wound on left second toe Wound culture growing staph species. He has a history of MRSA Continue on vancomycin; follow-up on sensitivity of wound culture H/O Dementia UA not suggestive of UTI Reorient frequently to minimize delirium Continue home medications Chronic diastolic heart failure EF 60-65%, TTE 2022 No signs of exacerbation CAD S/P CABG SSS S/P PPM Valvular heart disease (mild /MR/TR) Continue home medications Hypertension Hyperlipidemia Continue home medications Colon cancer s/p surgery/incomplete chemotherapy Prostate cancer s/p radiation, currently in remission DM II Last HbA1C: 8.6 Hold p.o. meds Continue insulin while hospitalized Monitor BGs DVT Px: Heparin CODE STATUS DNR/DNI Disposition Patient hospitalized with multiple falls. Found to have infection in the left foot; on antibiotics. Possible discharge to rehab in next few days. Discussed with his Carlene on the phone on August 11, 2023. Answered questions/queries. Please note the above document was generated using voice recognition software. It may contain grammatical, syntax or spelling errors. Any formal questions or concerns about the content, text or information contained within the body of this dictation should be directly addressed to the provider for clarification Admission and Anticipated Discharge Date Admission Date: July 31, 2023 Subjective Patient seen and examined at bedside. He is sitting on the chair at the side of the bed; not in any distress. No fever or chills. No shortness of breath, chest pain. Review of Systems Review of Systems: All systems reviewed & are unremarkable except as noted in Subjective Physical Exam Physical Exam: Physical Exam: Vitals signs as noted above General Appearance:Moderately built and nourished, no apparent distress Respiratory/Chest: Bilateral clear breath sounds Cardiovascular: S1, S2, +murmur Abdomen/GI:Soft, Non tender, Bowel sounds present Extremities/Musculoskeletal:normal inspection, Trace edema. Redness present on dorsal aspect of left foot with open wound on second toe. Neurologic/Psych:AAOX2, grossly no focal neurological deficits,+ Dementia Skin: normal color, warm, +Multiple abrasions on extremities Results & Data Results & Data Vital Signs (Past 12 Hours) Vital Signs Temp Pulse Resp BP Pulse Ox O2 Del Method 08/11/23 07:40 36.4 C L 62 16 131/84 98 Room Air 08/11/23 07:35 Room Air
[2023-08-11] MEDS: MELATONIN 3 MG TAB PO SCH (20:27)
[2023-08-11] MEDS: ATORVASTATIN 40 MG TAB PO SCH (20:27)
[2023-08-12] MEDS: HEPARIN SOD 5,000 UNIT/0.5 ML VIAL SQ SCH ×3 (05:58→21:22)
[2023-08-12] MEDS: VANCOMYCIN HCL 1,000 MG in SODIUM CHLORIDE 0.9% 250 ML IV SCH ×2 (05:58→18:33)
[2023-08-12 07:23] LABS: Basophils # (auto) 0.02 K/uL (0.00-0.20); Basophils % (auto) 0.3 %; Eosinophils # (auto) 0.17 K/uL (0.00-0.50); Eosinophils % (auto) 2.9 %; Hematocrit (blood only) 41.4 % (42.0-52.0); Hemoglobin 13.3 g/dl (14.0-18.0); Immature Granulocytes # (auto) 0.09 K/uL (0.01-0.20); Immature Granulocytes % (auto) 1.5 %; Lymphocytes # (auto) 1.57 K/uL (1.20-3.40); Lymphocytes % (auto) 26.6 %; Mean Corpuscular Hemoglobin 29.4 pg (25.0-34.0); Mean Corpuscular Hgb Conc 32.1 g/dL (32.0-36.0); Mean Corpuscular Volume 91.6 fL (80.0-100.0); Mean Platelet Volume 9.7 fL (9.4-12.4); Monocytes % (auto) 10.2 %; Neutrophils # (auto) 3.46 K/uL (1.40-6.50); Neutrophils % (auto) 58.5 %; Platelet Count 193 K/uL (130-400); RDW Coefficient of Variation 14.6 % (11.5-14.5); Red Blood Count 4.52 M/uL (4.70-6.10); White Blood Count 5.91 K/ul (4.8-10.8)
[2023-08-12 07:47] LABS: Calcium 9.3 mg/dl (8.6-10.3); Potassium 3.9 mmol/L (3.5-5.1)
[2023-08-12 07:52] LABS: BUN Creatinine Ratio 30.5 (10-20); Creatinine Clr Calc Pharmacy 66.7 ml/min; Est GFR (African American) 82.5 ml/min; Est GFR (Non-African American) 71.2 ml/min
[2023-08-12] MEDS: ASPIRIN 81 MG ECTAB PO SCH (08:04)
[2023-08-12] MEDS: CLOPIDOGREL BISULFATE 75 MG TAB PO SCH (08:05)
[2023-08-12] MEDS: CITALOPRAM 20 MG TAB PO SCH (08:05)
[2023-08-12] MEDS: DONEPEZIL HCL 10 MG TAB PO SCH (08:06)
[2023-08-12] MEDS: GABAPENTIN 100 MG CAP PO SCH ×2 (08:06→20:42)
[2023-08-12] MEDS: MULTIVITAMIN TAB PO SCH (08:07)
[2023-08-12] MEDS: ISOSORBIDE MONO EXTENDED REL 30 MG TABCR PO SCH (08:07)
[2023-08-12] MEDS: METOPROLOL SUCC 50MG EXT REL TAB PO SCH (08:08)
[2023-08-12] MEDS: DOCUSATE SODIUM 100 MG CAP PO SCH ×2 (08:08→20:42)
[2023-08-12] MEDS: INSULIN ASPART PER UNIT CHARGE SC SCH ×4 (08:45→20:45)
[2023-08-12] MEDS: LANTUS PER UNIT CHARGE SQ SCH (08:46)
--- NOTE | 2023-08-12 13:17 | Hospitalist Progress Note ---
Date of Service August 12, 2023 Assessment & Plan (1) AMS (altered mental status): Plan: Pt is an 88yoM with PMhx significant for chronic diastolic heart failure (EF 60- 65%, TTE 2022), CAD sp CABG, SSS status post PPM, PAF, valvular heart disease (mild /MR/TR), hypertension, hyperlipidemia, colon cancer status post surgery/incomplete chemotherapy, prostate cancer status post radiation, DM2 on oral medications, past history DVT, dementia, history of MRSA bacteremia who was admitted with altered mental status in the setting of a covid infection. COVID 19 infection Acute Metabolic Encephalopathy Bio fire positive for COVID-19 on Jul 31, 2023 Acute metabolic encephalopathy--POA due to above Patient was brought to the hospital due to altered mental status. CT Chest: No acute findings in the chest. Was treated with albuterol, supplemental oxygen as needed, conservative management On RA currently, off isolation Waiting for rehab placement Left foot Cellulitis Multiple wounds Multiple contusions, abrasions secondary to fall on admission Head CT:No acute findings in the head/brain. CT ABD:No acute findings in the abdomen or pelvis. Imaging studies showed no fractures Noticed to have redness and open wound on left second toe Wound culture grew MRSA sensitive to vancomycin and daptomycin Was treated with Vancomycin for 2 days before being switched to daptomycin Consider imaging of foot and toe- MRI to rule out osteomyelitis H/O Dementia UA not suggestive of UTI Delirium precautions. Frequent reorientation, avoid sedating medications Continue home medications Palliative Care was consulted- appreciate recs CAD S/P CABG SSS S/P PPM Chronic diastolic heart failure EF 60-65%, TTE 2022 No signs of exacerbation Valvular heart disease (mild /MR/TR) Continue home medications Stable Hypertension Hyperlipidemia Continue home medications Colon cancer s/p surgery/incomplete chemotherapy Prostate cancer s/p radiation currently in remission DM II Last HbA1C: 8.6 Hold p.o. meds Continue insulin while hospitalized Monitor BGs DVT Px:Heparin Diet: HH/DMII CODE STATUS: DNR/DNI Admission and Anticipated Discharge Date Admission Date: July 31, 2023 Subjective Pt was sitting in chair at bedside eating lunch. Pleasantly confused, oriented to self only. Denied acute concerns. Review of Systems Review of Systems: All systems reviewed & are unremarkable except as noted in Subjective Physical Exam Physical Exam: General: Alert, orientedx1. No acute distress Skin: right foot bandaged Psych: Appropriate mood and affect Neuro: No gross deficits HEENT: NC/AT CV: RRR Resp: Breath sounds decreased bilaterally, no increased effort of breathing. Abdomen: Soft Extremities: RLE bandaged Results & Data Results & Data Vital Signs (Past 12 Hours) Vital Signs Temp Pulse Resp BP Pulse Ox Pulse Ox O2 Del Method 08/12/23 10:00 98 08/12/23 08:51 Room Air 08/12/23 07:44 36.4 C L 60 18 134/77 98 Room Air O2 Del Method 08/12/23 10:00 Room Air 08/12/23 08:51 08/12/23 07:44
--- NOTE | 2023-08-12 13:21 | Pharmacy Report ---
Pharmacy PK ABX Note - Date of Service August 12, 2023 - Assessment and Plan Assessment 88 year old M receiving vancomycin for treatment of MRSA infection of left second toe. Physical exam revealed redness and purulent drainage of the area. Renal function stable, afebrile, WBC wnl. Day # 3 of antimicrobial therapy. Plan Vancomycin * Current regimen: 1000 mg IV every 12 hours * Random level obtained 08/12/23 resulted as 16.6 mcg/mL. This is predicted to achieve target AUC/HARISH of 400-600 mg/L.hr * Predicted AUC at steady state: 523 mg/L.hr * Continue 1000 mg IV every 12 hours * Repeat level to be ordered in 48-72 hours. Pharmacy will continue to follow and will adjust dose/frequency as necessary. Thank you. Pharmacy has transitioned to AUC monitoring for vancomycin. AUC/HARISH is the preferred PK/PD target and is associated with decreased risk of nephrotoxicity compared to traditional trough targets.
[2023-08-12] MEDS: MELATONIN 3 MG TAB PO SCH (20:42)
[2023-08-12] MEDS: DAPTOmycin 325 MG in SYRINGE 0 ML IV SCH (20:44)
[2023-08-12] MEDS: ATORVASTATIN 40 MG TAB PO SCH (20:44)
[2023-08-13] MEDS: HEPARIN SOD 5,000 UNIT/0.5 ML VIAL SQ SCH ×3 (05:33→21:37)
[2023-08-13 06:42] LABS: Hematocrit (blood only) 38.8 % (42.0-52.0); Hemoglobin 13.1 g/dl (14.0-18.0); Mean Corpuscular Hgb Conc 33.8 g/dL (32.0-36.0); Mean Corpuscular Volume 88.8 fL (80.0-100.0); Mean Platelet Volume 9.9 fL (9.4-12.4); Platelet Count 202 K/uL (130-400); RDW Coefficient of Variation 14.4 % (11.5-14.5); RDW Standard Deviation 46.3 fL (36.4-46.3); Red Blood Count 4.37 M/uL (4.70-6.10); White Blood Count 5.53 K/ul (4.8-10.8)
[2023-08-13 06:55] LABS: BUN Creatinine Ratio 32.6 (10-20); Calcium 9.3 mg/dl (8.6-10.3); Creatinine Clr Calc Pharmacy 71.2 ml/min; Est GFR (African American) 88.5 ml/min; Est GFR (Non-African American) 76.3 ml/min; Phosphorus 3.2 mg/dl (2.5-4.9); Potassium 4.2 mmol/L (3.5-5.1)
[2023-08-13] MEDS: GABAPENTIN 100 MG CAP PO SCH ×2 (07:53→20:34)
[2023-08-13] MEDS: ISOSORBIDE MONO EXTENDED REL 30 MG TABCR PO SCH (07:53)
[2023-08-13] MEDS: ASPIRIN 81 MG ECTAB PO SCH (07:53)
[2023-08-13] MEDS: DOCUSATE SODIUM 100 MG CAP PO SCH ×2 (07:53→20:34)
[2023-08-13] MEDS: METOPROLOL SUCC 50MG EXT REL TAB PO SCH (07:53)
[2023-08-13] MEDS: MULTIVITAMIN TAB PO SCH (07:53)
[2023-08-13] MEDS: CLOPIDOGREL BISULFATE 75 MG TAB PO SCH (07:53)
[2023-08-13] MEDS: DONEPEZIL HCL 10 MG TAB PO SCH (07:53)
[2023-08-13] MEDS: CITALOPRAM 20 MG TAB PO SCH (07:54)
[2023-08-13] MEDS: INSULIN ASPART PER UNIT CHARGE SC SCH ×4 (07:59→20:42)
[2023-08-13] MEDS: LANTUS PER UNIT CHARGE SQ SCH (07:59)
--- NOTE | 2023-08-13 16:27 | Hospitalist Progress Note ---
Date of Service August 13, 2023 Assessment & Plan (1) AMS (altered mental status): Plan: Pt is an 88yoM with PMhx significant for chronic diastolic heart failure (EF 60- 65%, TTE 2022), CAD sp CABG, SSS status post PPM, PAF, valvular heart disease (mild /MR/TR), hypertension, hyperlipidemia, colon cancer status post surgery/incomplete chemotherapy, prostate cancer status post radiation, DM2 on oral medications, past history DVT, dementia, history of MRSA bacteremia who was admitted with altered mental status in the setting of a covid infection. COVID 19 infection Acute Metabolic Encephalopathy Bio fire positive for COVID-19 on Jul 31, 2023 Acute metabolic encephalopathy--POA due to above Patient was brought to the hospital due to altered mental status. CT Chest: No acute findings in the chest. Was treated with albuterol, supplemental oxygen as needed, conservative management On RA currently, off isolation Waiting for rehab placement Left foot Cellulitis Multiple wounds Multiple contusions, abrasions secondary to fall on admission Head CT:No acute findings in the head/brain. CT ABD:No acute findings in the abdomen or pelvis. Imaging studies showed no fractures Noticed to have redness and open wound on left second toe Wound culture grew MRSA sensitive to vancomycin and daptomycin Was treated with Vancomycin for 2 days before being switched to daptomycin Consider imaging of foot and toe- MRI of the left foot ordered to rule out osteomyelitis Narrow to oral abx if MRI negative for osteomyelitis H/O Dementia UA not suggestive of UTI Delirium precautions. Frequent reorientation, avoid sedating medications Continue home medications Palliative Care was consulted- appreciate recs CAD S/P CABG SSS S/P PPM Chronic diastolic heart failure EF 60-65%, TTE 2022 No signs of exacerbation Valvular heart disease (mild /MR/TR) Continue home medications Stable Hypertension Hyperlipidemia Continue home medications Colon cancer s/p surgery/incomplete chemotherapy Prostate cancer s/p radiation currently in remission DM II Last HbA1C: 8.6 Hold p.o. meds Continue insulin while hospitalized Monitor BGs DVT Px:Heparin Diet: HH/DMII CODE STATUS: DNR/DNI Admission and Anticipated Discharge Date Admission Date: July 31, 2023 Subjective Pt was sitting in chair at bedside eating cookies with his . Pleasantly confused, oriented to self only. Denied acute concerns. Review of Systems Review of Systems: All systems reviewed & are unremarkable except as noted in Subjective Physical Exam Physical Exam: General: Alert, orientedx1. No acute distress Skin: right foot bandaged Psych: Appropriate mood and affect Neuro: No gross deficits HEENT: NC/AT CV: RRR Resp: Breath sounds decreased bilaterally, no increased effort of breathing. Abdomen: Soft Extremities: RLE bandaged, noted healing bruises on LLE Results & Data Results & Data Vital Signs (Past 12 Hours) Vital Signs Temp Pulse Resp BP Pulse Ox O2 Del Method 08/13/23 14:13 36.8 C 62 18 111/66 97 Room Air 08/13/23 08:42 Room Air 08/13/23 07:29 36.3 C L 67 20 158/88 H 98 Room Air
[2023-08-13] MEDS: DAPTOmycin 325 MG in SYRINGE 0 ML IV SCH (20:34)
[2023-08-13] MEDS: MELATONIN 3 MG TAB PO SCH (20:34)
[2023-08-13] MEDS: ATORVASTATIN 40 MG TAB PO SCH (20:35)
[2023-08-14] MEDS: HEPARIN SOD 5,000 UNIT/0.5 ML VIAL SQ SCH ×3 (05:18→19:59)
[2023-08-14 06:21] LABS: Hematocrit (blood only) 39.6 % (42.0-52.0); Hemoglobin 12.6 g/dl (14.0-18.0); Mean Corpuscular Hemoglobin 29.4 pg (25.0-34.0); Mean Corpuscular Hgb Conc 31.8 g/dL (32.0-36.0); Mean Corpuscular Volume 92.3 fL (80.0-100.0); Mean Platelet Volume 9.7 fL (9.4-12.4); Platelet Count 201 K/uL (130-400); RDW Coefficient of Variation 14.6 % (11.5-14.5); RDW Standard Deviation 49.1 fL (36.4-46.3); Red Blood Count 4.29 M/uL (4.70-6.10); White Blood Count 6.38 K/ul (4.8-10.8)
[2023-08-14 06:36] LABS: Creatinine Clr Calc Pharmacy 73.7 ml/min; Est GFR (African American) 89.7 ml/min; Est GFR (Non-African American) 77.4 ml/min; Phosphorus 2.8 mg/dl (2.5-4.9); Potassium 4.3 mmol/L (3.5-5.1)
--- NOTE | 2023-08-14 07:49 | XRay Report ---
XR toe(s) LT min 2V CLINICAL HISTORY: r/o chronic osteomyelitis COMPARISON: Left foot radiographs July 23, 2021. FINDINGS: There is erosion of the distal tuft of the distal phalanx of the left second toe. This is new since radiographs of July 23, 2021. No acute fractures are identified within the left second to e. K wire within the left third metatarsal is unchanged. Postoperative findings within the left third toe are unchanged. IMPRESSION: Erosion of the distal tuft of the distal phalanx of the left second toe, new since radiog raphs of July 23, 2021. This is suggestive of osteomyelitis. ACT 112: Negative or not required by law. Electronically signed by: David Rivera M.D. 08/14/2023 7:47 AM
[2023-08-14] MEDS: GABAPENTIN 100 MG CAP PO SCH ×2 (08:11→19:59)
[2023-08-14] MEDS: CITALOPRAM 20 MG TAB PO SCH (08:11)
[2023-08-14] MEDS: ASPIRIN 81 MG ECTAB PO SCH (08:11)
[2023-08-14] MEDS: CLOPIDOGREL BISULFATE 75 MG TAB PO SCH (08:11)
[2023-08-14] MEDS: DOCUSATE SODIUM 100 MG CAP PO SCH ×2 (08:12→20:00)
[2023-08-14] MEDS: MULTIVITAMIN TAB PO SCH (08:12)
[2023-08-14] MEDS: ISOSORBIDE MONO EXTENDED REL 30 MG TABCR PO SCH (08:12)
[2023-08-14] MEDS: METOPROLOL SUCC 50MG EXT REL TAB PO SCH (08:12)
[2023-08-14] MEDS: DONEPEZIL HCL 10 MG TAB PO SCH (08:12)
[2023-08-14] MEDS: INSULIN ASPART PER UNIT CHARGE SC SCH ×4 (08:14→22:00)
[2023-08-14] MEDS: LANTUS PER UNIT CHARGE SQ SCH (08:16)
--- NOTE | 2023-08-14 13:36 | Hospitalist Progress Note ---
Date of Service August 14, 2023 Assessment & Plan (1) AMS (altered mental status): Plan: Pt is an 88yoM with PMhx significant for chronic diastolic heart failure (EF 60- 65%, TTE 2022), CAD sp CABG, SSS status post PPM, PAF, valvular heart disease (mild /MR/TR), hypertension, hyperlipidemia, colon cancer status post surgery/incomplete chemotherapy, prostate cancer status post radiation, DM2 on oral medications, past history DVT, dementia, history of MRSA bacteremia who was admitted with altered mental status in the setting of a covid infection. COVID 19 infection Acute Metabolic Encephalopathy Bio fire positive for COVID-19 on Jul 31, 2023 Acute metabolic encephalopathy--POA due to above Patient was brought to the hospital due to altered mental status. CT Chest: No acute findings in the chest. Was treated with albuterol, supplemental oxygen as needed, conservative management On RA currently, off isolation Waiting for rehab placement Left foot Cellulitis Multiple wounds Multiple contusions, abrasions secondary to fall on admission Head CT:No acute findings in the head/brain. CT ABD:No acute findings in the abdomen or pelvis. Imaging studies showed no fractures Noticed to have redness and open wound on left second toe Wound culture grew MRSA sensitive to vancomycin and daptomycin -Was treated with Vancomycin for 2 days before being switched to daptomycin -Imaging ordered on 08/13- Pt had pacemaker so MRI deferred, ordered xray of toe to rule out chronic osteomyelitis. -XRAY confirming osteomyelitis -Podiatry consult-s/p left second toe amputation on 08/14 H/O Dementia UA not suggestive of UTI Delirium precautions. Frequent reorientation, avoid sedating medications Continue home medications Palliative Care was consulted- appreciate recs CAD S/P CABG SSS S/P PPM Chronic diastolic heart failure EF 60-65%, TTE 2022 No signs of exacerbation Valvular heart disease (mild /MR/TR) Continue home medications Stable Hypertension Hyperlipidemia Continue home medications Colon cancer s/p surgery/incomplete chemotherapy Prostate cancer s/p radiation currently in remission DM II Last HbA1C: 8.6 Hold p.o. meds Continue insulin while hospitalized Monitor BGs DVT Px:Heparin Diet: HH/DMII CODE STATUS: DNR/DNI Admission and Anticipated Discharge Date Admission Date: July 31, 2023 Subjective Pt was seen while eating lunch. Had an episode of coughing as he appeared to choke on some foods. Stated he was ok afterwards. Asking about his shoes-pleasantly demented. Review of Systems Review of Systems: Unobtainable due to cognitive status Physical Exam Physical Exam: General: Alert, orientedx1. No acute distress Skin: right foot, leg bandaged. Noted healing lesions on the left Psych: Appropriate mood and affect Neuro: No gross deficits HEENT: NC/AT CV: RRR Resp: Breath sounds decreased bilaterally, no increased effort of breathing. Abdomen: Soft Extremities: RLE bandaged, noted healing bruises on LLE Results & Data Results & Data Vital Signs (Past 12 Hours) Vital Signs Temp Pulse Pulse Resp BP Pulse Ox O2 Del Method 08/14/23 08:11 62 08/14/23 07:05 36.7 C 59 L 18 161/90 H 98 Room Air
--- NOTE | 2023-08-14 14:53 | Anesthesiology Consultation ---
Date of Service August 14, 2023 Assessment & Plan Proposed Anesthesia Risk / Benefits Reviewed With: PT / POA / Parent / Guardian, Accepts Plan and Informed Consent Obtained History Surgery Operation Date: 08/14/23 13:30 Proposed Procedures p Left Second Toe Amputation - Jayy Magdaleno, [place], [place] Height/Weight Height: 6 ft 1 in Weight: 99.51 kg Allergies Allergy/AdvReac Type Severity Reaction Status Date / Time hydrocodone AdvReac Intermediate MAKES PT Verified 06/30/23 10:19 HALLUCINATE meperidine AdvReac Intermediate psych Verified 07/31/23 02:06 complications oxycodone AdvReac Intermediate MAKES PT Verified 06/30/23 10:19 HALLUCINATES Medications Home Medications Medication Instructions Recorded Confirmed Last Taken aspirin 81 mg tablet,delayed 81 mg PO QA 05/15/23 07/31/23 Unknown release atorvastatin 40 mg tablet 40 mg PO HS 05/15/23 07/31/23 Unknown biotin 5 mg tablet 5 mg PO QA 05/15/23 07/31/23 Unknown citalopram 20 mg tablet 20 mg PO QA 05/15/23 07/31/23 Unknown clopidogrel 75 mg tablet 75 mg PO DAILY 05/15/23 07/31/23 Unknown donepezil 10 mg tablet 10 mg PO DAILY 05/15/23 07/31/23 Unknown empagliflozin 25 mg tablet 25 mg PO DAILY 05/15/23 07/31/23 Unknown gabapentin 100 mg capsule 100 mg PO BID 05/15/23 07/31/23 Unknown isosorbide mononitrate 30 mg 30 mg PO DAILY 05/15/23 07/31/23 Unknown tablet,extended release 24 hr loperamide 2 mg capsule 2 mg PO QAM 05/15/23 07/31/23 Unknown meclizine 25 mg tablet 25 mg PO DAILY PRN dizzyness 05/15/23 07/31/23 Unknown melatonin 10 mg tablet 10 mg PO HS 05/15/23 07/31/23 Unknown metformin 500 mg tablet,extended 500 mg PO BID 05/15/23 07/31/23 Unknown release 24 hr metoprolol succinate 50 mg 50 mg PO QAM 05/15/23 07/31/23 Unknown tablet,extended release 24 hr multivitamin 1 tab PO DAILY 05/15/23 07/31/23 Unknown omega-3 fatty acids 1,000 mg 1,000 mg PO DAILY 05/15/23 07/31/23 Unknown capsule semaglutide 7 mg tablet (Rybelsus) 7 mg PO QAM 05/15/23 07/31/23 Unknown Active Medications Generic Name Dose Route Start Last Admin Trade Name Halley PRN Reason Stop Dose Admin Aspirin 81 mg 08/01/23 09:00 08/14/23 08:11 Aspirin 81 Mg Ectab PO 08/31/23 08:59 81 mg QAM LELO Administration Atorvastatin Calcium 40 mg 07/31/23 21:00 08/13/23 20:35 Atorvastatin 40 Mg Tab PO 08/30/23 20:59 40 mg HS LELO Administration Citalopram Hydrobromide 20 mg 07/31/23 09:00 08/14/23 08:11 Citalopram 20 Mg Tab PO 08/30/23 08:59 20 mg QAM LELO Administration Clopidogrel Bisulfate 75 mg 08/01/23 09:00 08/14/23 08:11 Clopidogrel Bisulfate 75 Mg Tab PO 08/31/23 08:59 75 mg DAILY LELO Administration Docusate Sodium 100 mg 08/03/23 21:00 08/14/23 08:12 Docusate Sodium 100 Mg Cap PO 09/02/23 20:59 100 mg BID LELO Administration Donepezil HCl 10 mg 07/31/23 09:00 08/14/23 08:12 Donepezil Hcl 10 Mg Tab PO 08/30/23 08:59 10 mg DAILY LELO Administration Gabapentin 100 mg 07/31/23 09:00 08/14/23 08:11 Gabapentin 100 Mg Cap PO 08/30/23 08:59 100 mg BID LELO Administration Heparin Sodium (Porcine) 5,000 units 08/05/23 14:05 08/14/23 14:37 Heparin Sod 5,000 Unit/0.5 Ml Vial SQ 09/04/23 14:04 Not Given Q8 LELO Daptomycin 325 mg/ Syringe 6.5 mls @ 3.25 mls/min 08/12/23 20:00 08/13/23 20:34 IV 08/19/23 19:59 3.25 mls/min Q24H LELO Administration Protocol Insulin Aspart 0 units 07/31/23 08:19 08/14/23 12:38 Insulin Aspart Per Unit Charge SC 08/30/23 08:18 4 units ACHS LELO Administration Insulin Glargine 5 units 07/31/23 09:00 08/14/23 08:16 Lantus Per Unit Charge SQ 08/30/23 08:59 5 units DAILY LELO Administration Isosorbide Mononitrate 30 mg 07/31/23 09:00 08/14/23 08:12 Isosorbide [place] Extended Rel 30 Mg Tabcr PO 08/30/23 08:59 30 mg DAILY LELO Administration Melatonin 9 mg 07/31/23 21:00 08/13/23 20:34 Melatonin 3 Mg Tab PO 08/30/23 20:59 9 mg HS LELO Administration Metoprolol Succinate 50 mg 07/31/23 09:00 08/14/23 08:12 Metoprolol Succ 50mg Ext Rel Tab PO 08/30/23 08:59 50 mg QAM LELO Administration Miscellaneous 1 each 07/31/23 16:00 08/03/23 12:48 Semaglutide [Rybelsus] 7 Mg Tablet~Order Awaiting Action N/A 08/30/23 15:59 Not Given QS LELO Multivitamins 1 tab 07/31/23 09:00 08/14/23 08:12 Multivitamin Tab PO 08/30/23 08:59 1 tab DAILY LELO Administration Past Medical History Medical History Diabetic neuropathy CAD (coronary artery disease) Diabetes mellitus, type 2 History of colon cancer 2017--sx/oral chemo History of prostate cancer 2013--sx/radiation History of deep vein thrombosis (DVT) of lower extremity right leg---no blood thinners Hearing deficit Depression Dementia Hypertension Hyperlipidemia Myocardial Infarction hx of NSTEMI in setting of sepsis July [address] segment elevation myocardial manage medically, occurring in the setting of acute sepsis secondary abdominal abscess following colon resection for colon cancer. Sleep apnea cpap Exercise / Class Metabolic Activity II 4-5 Yardwork/Stairs/Walk up hill Past Family History Family History Denies family history of Heart disease Past Surgical History Surgical History History of open reduction and internal fixation (ORIF) procedure right ankle--no hardware History of left shoulder replacement History of right shoulder replacement History of revision of total replacement of right hip joint History of total right hip replacement History of total left hip replacement History of colon resection 2018 @ [facility] d/t cancer History of prostatectomy d/t cancer History of prostate biopsy malignant History of tooth extraction all teeth History of bilateral cataract extraction H/O colectomy S/P cataract surgery S/P hip replacement Past Anesthesia History No Hx of Anesthesia Complications and No Family Hx of Anesthesia Complications History of PONV No Hx of PONV and No Hx of Motion Sickness Social History Smoking Status: Never smoker tobacco type: smokeless tobacco Do You Dip or Chew Tobacco: No Hx Alcohol Use: Yes Alcohol type: beer alcohol intake frequency: 0-2 drinks per day Hx Substance Use: No substance use type: does not use Review of Systems denies fever/cough/ colds/ chest pain/ SOB/ MARKO denies MARKO Physical Exam Vital Signs Last Vital Signs Temp 36.7 C 08/14/23 07:05 Pulse 62 08/14/23 08:11 Resp 18 08/14/23 07:05 BP 161/90 H 08/14/23 07:05 Pulse Ox 98 08/14/23 07:05 O2 Del Method Room Air 08/14/23 07:05 ENMT Mouth: no TMJ abnormality and no dentition abnormality Thyromental Distance: > or= 3.5 Finger Breadths Mallampati Class: IV Neck neck extension not limited Respiratory normal respiratory effort; no respiratory distress Auscultation: lungs clear to auscultation bilaterally Cardiovascular Rate/Rhythm: regular rate and regular rhythm Neurologic moves all extremities Psychiatric Orientation: alert and oriented x 3 Testing Laboratory Results 08/14/23 05:51 08/14/23 05:51 PT 10.7 Seconds (9.0-12.0) 07/31/23 02:16 INR 1.0 (0.9-1.1) 07/31/23 02:16 Urine Color Dark Yellow 08/01/23 17:34 Urine Appearance Clear (Clear) 08/01/23 17:34 Urine pH 5.0 (4.5-7.5) 08/01/23 17:34 Ur Specific Coleman 1.043 (1.000-1.030) H 08/01/23 17:34 Urine Protein Negative (Negative) 08/01/23 17:34 Urine Glucose (UA) 3+ (Negative) H 01/13/24 17:34 Urine Ketones 1+ (Negative) H 08/01/23 17:34 Urine Nitrite Negative (Negative) 08/01/23 17:34 Ur Leukocyte Esterase Negative (Negative) 08/01/23 17:34 08/10/23 18:00 Gram Stain - Final Toe,Left Wound Culture - Final Staph aureus MRSA 08/14/23 08/14/23 11:37 07:37 POC Glucose 168 H 174 H
--- NOTE | 2023-08-14 15:30 | Orthopedic Consultation ---
Date of Consultation August 14, 2023 Assessment & Plan (1) Osteomyelitis due to type 2 diabetes mellitus: Patient seen, evaluated, and treated. Reviewed x-ray and x-ray findings with Patient and . Patient and are requesting amputation of left second toe. I reviewed procedure in detail as well as postoperative recovery. I discussed expectations and patient's current weightbearing status. All potential risks, benefits, complications, alternatives, rehab, potential for incomplete relief of symptoms, need for further surgery, DVT, PE, , persistent pain, swelling, scarring, weakness, neurovascular, wound complications and potential for amputations were discussed with patient. Unwan mike outcomes such as, but not limited to were reviewed including under correction, overcorrection, return of deformity, infection. All questions were answered. Patient has decided to proceed with procedure as indicated. (2) Bacteremia due to methicillin resistant Staphylococcus aureus: (3) Diabetic toe ulcer: History of Present Illness Attending Physician: Becki Butcher MD History of Present Illness Patient is a 88 year old male with history of dementia seen at bedside for Left second toe osteomyelitis. Patient has a past medical history significant for chronic diastolic heart failure (EF 60-65%, TTE 2022), CAD sp CABG, SSS status post PPM, PAF, valvular heart disease (mild /MR/TR), hypertension, hyperlipidemia, colon cancer status post surgery/incomplete chemotherapy, prostate cancer status post radiation, DM2 on oral medications, past history DVT, dementia, history of MRSA bacteremia status post antibiotic Rx. Patient seen with present in room who helps with history and care. History obtained from patient's previous documentation. Limited history from patient secondary to dementia.Patient has a history of Diabetic foot ulcers, osteomyelitis, and previous toe amputations. Patient and would prefer left second toe be amputated due to wound and recent x-ray findings by radiologist of osteomyelitis. Allergies Allergy/AdvReac Type Severity Reaction Status Date / Time hydrocodone AdvReac Intermediate MAKES PT Verified 06/30/23 10:19 HALLUCINATE meperidine AdvReac Intermediate psych Verified 07/31/23 02:06 complications oxycodone AdvReac Intermediate MAKES PT Verified 06/30/23 10:19 HALLUCINATES Home Medications Medication Instructions Recorded Confirmed Type aspirin 81 mg tablet,delayed 81 mg PO QAM 05/15/23 07/31/23 History release atorvastatin 40 mg tablet 40 mg PO HS 05/15/23 07/31/23 History biotin 5 mg tablet 5 mg PO QAM 05/15/23 07/31/23 History citalopram 20 mg tablet 20 mg PO QAM 05/15/23 07/31/23 History clopidogrel 75 mg tablet 75 mg PO DAILY 05/15/23 07/31/23 History donepezil 10 mg tablet 10 mg PO DAILY 05/15/23 07/31/23 History empagliflozin 25 mg tablet 25 mg PO DAILY 05/15/23 07/31/23 History gabapentin 100 mg capsule 100 mg PO BID 05/15/23 07/31/23 History isosorbide mononitrate 30 mg 30 mg PO DAILY 05/15/23 07/31/23 History tablet,extended release 24 hr loperamide 2 mg capsule 2 mg PO QAM 05/15/23 07/31/23 History meclizine 25 mg tablet 25 mg PO DAILY PRN dizzyness 05/15/23 07/31/23 History melatonin 10 mg tablet 10 mg PO HS 05/15/23 07/31/23 History metformin 500 mg tablet,extended 500 mg PO BID 05/15/23 07/31/23 History release 24 hr metoprolol succinate 50 mg 50 mg PO QAM 05/15/23 07/31/23 History tablet,extended release 24 hr multivitamin 1 tab PO DAILY 05/15/23 07/31/23 History omega-3 fatty acids 1,000 mg 1,000 mg PO DAILY 05/15/23 07/31/23 History capsule semaglutide 7 mg tablet (Rybelsus) 7 mg PO QAM 05/15/23 07/31/23 History Patient History Medical History Diabetic neuropathy CAD (coronary artery disease) Diabetes mellitus, type 2 History of colon cancer 2017--sx/oral chemo History of prostate cancer 2013--sx/radiation History of deep vein thrombosis (DVT) of lower extremity right leg---no blood thinners Hearing deficit Depression Dementia Hypertension Hyperlipidemia Myocardial Infarction hx of NSTEMI in setting of sepsis July [address] segment elevation myocardial manage medically, occurring in the setting of acute sepsis secondary abdominal abscess following colon resection for colon cancer. Sleep apnea cpap Surgical History History of open reduction and internal fixation (ORIF) procedure right ankle--no hardware History of left shoulder replacement History of right shoulder replacement History of revision of total replacement of right hip joint History of total right hip replacement History of total left hip replacement History of colon resection 2018 @ [facility] d/t cancer History of prostatectomy d/t cancer History of prostate biopsy malignant History of tooth extraction all teeth History of bilateral cataract extraction H/O colectomy S/P cataract surgery S/P hip replacement Family History Denies family history of Heart disease Social History Smoking Status: Never smoker Second Hand Exposure: No; Do You Dip or Chew Tobacco: No; Hx Alcohol Use: Yes Alcohol type: beer Alcohol Intake Frequency Comment: few times per week Hx Substance Use: No Preferred Language: Andorran Communication Ability: Effective 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 Bindery 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 Worker Required: No Beliefs That Will Affect Care: None marital status: Current Living Situation: Spouse Other Information That Helps Us Care for You: Yes ( unable to care for him at home due to fall risk) Feels Safe at Home: Yes Safety Concerns: Feels Safe At This Time Assistive Devices: CPAP and Walker Review of Systems Review of Systems: All systems reviewed & are unremarkable except as noted in HPI & below Physical Exam Constitutional: cooperative and comfortable Eyes: normal visual duckworth by confrontation Neck: normal visual inspection Respiratory: normal respiratory effort Cardiovascular: Rate/Rhythm: regular rate and regular rhythm Vessels: posterior tibial pulses present and dorsalis pedis pulses present Musculoskeletal: Extremities: extremities normal to inspection Skin: + ulcer (Left second toe ulcer) Results & Data Vital Signs (Past 12 Hours) Vital Signs Temp Pulse Pulse Resp BP Pulse Ox O2 Del Method 08/14/23 08:11 62 08/14/23 07:05 36.7 C 59 L 18 161/90 H 98 Room Air Diagnostic Findings [facility], [place] [phone] XRay Report Patient: JOAQUIN MARISCAL Admit Date: 07/31/23 MR#: [id number] Address1: [address] [place] [address] Acct ID:[id number] Address2: Date: 1935 [facility] Zip: [place] [address] Age: 88 Location: 3E Sex: M Room/Bed: [facility] Att Phy: Becki Butcher MD Diagnosis: AMS Janeen Phy: Victoria Saldana DO Service Date: 08/13/23 Fam Phy: Interpreting Phy: David Rivera MDAdmit Phy: Desmond Cool MD Ordering Phy: Becki Butcher MD cc: ~ XR toe(s) LT min 2V CLINICAL HISTORY: r/o chronic osteomyelitis COMPARISON: Left foot radiographs July 23, 2021. FINDINGS: There is erosion of the distal tuft of the distal phalanx of the left second toe. This is new since radiographs of July 23, 2021. No acute fractures are identified within the left second toe. K wire within the left third me tatarsal is unchanged. Postoperative findings within the left third toe are unchanged. IMPRESSION: Erosion of the distal tuft of the distal phalanx of the left second toe, new since radiographs of July 23, 2021. This is suggestive of osteomyelitis. ACT 112: Negative or not required by law. Electronically signed by: David Rivera M.D. 08/14/2023 7:47 AM Dictated: 08/14/2344 Transcribed: 08/14/23 0744
--- NOTE | 2023-08-14 16:11 | History & Physical Bridge Note ---
Date of Service August 14, 2023 History & Physical Bridge Note I have examined the patient, reviewed the History & Physical and in the interval since the performance of the History & Physical I have noted the following changes of clinical significance: no changes noted
[2023-08-14] MEDS ORDERED: BUPIVACAINE 0.5 % 5 MG/1 ML MPF 30ML VIAL ONE (16:20)
--- NOTE | 2023-08-14 17:03 | Post Operative Brief Note ---
Immediate Post Op Note v1 Date of Surgery August 14, 2023 Pre & Post Diagnosis Operation Date: 08/14/23 13:30 Pre-Op Diagnosis: Left second toe osteomylitis Post-Op Diagnosis: Left second toe osteomylitis I identified the patient and participated in the time-out.: Yes Procedure Operation Date: 08/14/23 13:30 Actual Procedures p Left Second Toe Amputation(Left) - Jayy Magdaleno DPM, MS Surgeon Jayy Magdaleno DPM, MS Staff Therapist none Estimated Blood Loss 5 Findings Consistent with Post-Op Diagnosis Consistent with pre operative findings
[2023-08-14] MEDS: DAPTOmycin 325 MG in SYRINGE 0 ML IV SCH (19:58)
[2023-08-14] MEDS: MELATONIN 3 MG TAB PO SCH (19:58)
[2023-08-14] MEDS: ATORVASTATIN 40 MG TAB PO SCH (19:59)
[2023-08-15] MEDS: HEPARIN SOD 5,000 UNIT/0.5 ML VIAL SQ SCH ×3 (05:33→20:18)
[2023-08-15 07:06] LABS: Hematocrit (blood only) 40.5 % (42.0-52.0); Hemoglobin 13.4 g/dl (14.0-18.0); Mean Corpuscular Hemoglobin 29.7 pg (25.0-34.0); Mean Corpuscular Hgb Conc 33.1 g/dL (32.0-36.0); Mean Corpuscular Volume 89.8 fL (80.0-100.0); Mean Platelet Volume 10.7 fL (9.4-12.4); Platelet Count 186 K/uL (130-400); RDW Coefficient of Variation 14.7 % (11.5-14.5); Red Blood Count 4.51 M/uL (4.70-6.10); White Blood Count 6.42 K/ul (4.8-10.8)
[2023-08-15 07:44] LABS: BUN Creatinine Ratio 27.2 (10-20); Calcium 9.4 mg/dl (8.6-10.3); Creatinine Clr Calc Pharmacy 68.9 ml/min; Est GFR (African American) 85.8 ml/min; Magnesium 2.1 mg/dl (1.7-2.4); Phosphorus 2.8 mg/dl (2.5-4.9); Potassium 4.3 mmol/L (3.5-5.1)
--- NOTE | 2023-08-15 07:46 | Operative Report ---
Post Operative Report Pre & Post Diagnosis Operation Date: 08/14/23 13:30 Pre-Op Diagnosis: Left second toe osteomylitis Post-Op Diagnosis: Left second toe osteomylitis I identified the patient and participated in the time-out.: Yes Procedure Operation Date: 08/14/23 13:30 Actual Procedures p Left Second Toe Amputation(Left) - Jayy Magdaleno DPM, MS Surgeon Jayy Magdaleno DPM, MS Fmd Teacher none Estimated Blood Loss 5 Findings Consistent with Post-Op Diagnosis Consistent with pre operative findings Specimens Left second toe - pathology Description of Procedure History of present illness: Patient is a type II diabetic, 88 year old male who is seen for treatment of osteomyelitis of the left second toe. Patient relates minimal discomfort. Patient and request surgical amputation of left second toe. I discussed patient's history of toe amputation and reviewed hammertoe correction surgery. All questions answered. Discussed procedure in detail and postoperative recovery. All potential risks, benefits, complications, alternatives, rehab, potential for incomplete relief of symptoms, need for further surgery, DVT, PE, , persistent pain, swelling, scarring, weakness, neurovascular, wound complications and potential for amputations were discussed with patient. Unwanted outcomes such as, but not limited to were reviewed including under correction, overcorrection, return of deformity, infection. All questions were answered. Patient and have decided to proceed with procedure as indicated. Preoperative diagnosis: Diabetic ulcer osteomyelitis distal phalanx left second toe Postoperative diagnosis: same Name of operation: Amputation left second toe Surgeon Dr. Magdaleno Fmd Teacher: None Anesthesia: local with monitored anesthesia care Hemostasis: pneumatic ankle tourniquet Estimated blood loss: minimal Procedure in detail: Under mild sedation the patient was brought in the operating room placed on the operating table in supine position. Local anesthesia was obtained about the left utilizing 15 cc of a one-to-one mixture of 1% lidocaine plain and 0.5% Marcaine plain. The foot was then prepped scrubbed and draped in usual aseptic manner. Attention was then directed to a nonhealing diabetic ulcer on the distal aspect of the left second toe. A fishmouth incision was created utilizing a sharp, sterile, #15 blade. The incision was deepened through subcutaneous tissue using sharp blunt dissection. Care was taken to identify and retract all vital neurovascular structures. All bleeders were ligated and cauterized necessary. At this time the left second toe was removed at the metatarsal phalangeal joint and placed on the back table. The left second toe was sent to was placed in formalin and sent to pathology Copious amounts of sterile normal saline were utilized to flush the incision site. The skin was then primarily closed utilizing 4-0 nylon in horizontal suture mattress techniques as well as simple suture closure. Upon completion of the procedure the incision was dressed with Betadine soaked Adaptic followed by sterile compressive dressing consisting of 4 x 4's Kamla Kerlix ABD. An Ayden wrap and postoperative shoe were then applied. The Patient tolerated the procedure and anesthesia well. He was transferred to recovery room vital signs stable and vascular status intact all toes of the left foot following. Patient will be re-admitted to the floor resuming all pre-operative orders. I attest to the content of the Intraoperative Record and any orders documented therein. Any exceptions are noted below.
[2023-08-15] MEDS: ASPIRIN 81 MG ECTAB PO SCH (08:14)
[2023-08-15] MEDS: DOCUSATE SODIUM 100 MG CAP PO SCH ×2 (08:14→20:18)
[2023-08-15] MEDS: CITALOPRAM 20 MG TAB PO SCH (08:14)
[2023-08-15] MEDS: GABAPENTIN 100 MG CAP PO SCH ×2 (08:15→20:17)
[2023-08-15] MEDS: CLOPIDOGREL BISULFATE 75 MG TAB PO SCH (08:15)
[2023-08-15] MEDS: METOPROLOL SUCC 50MG EXT REL TAB PO SCH (08:15)
[2023-08-15] MEDS: DONEPEZIL HCL 10 MG TAB PO SCH (08:15)
[2023-08-15] MEDS: MULTIVITAMIN TAB PO SCH (08:15)
[2023-08-15] MEDS: ISOSORBIDE MONO EXTENDED REL 30 MG TABCR PO SCH (08:15)
[2023-08-15] MEDS: INSULIN ASPART PER UNIT CHARGE SC SCH ×4 (08:18→20:08)
[2023-08-15] MEDS: LANTUS PER UNIT CHARGE SQ SCH (08:19)
--- NOTE | 2023-08-15 10:04 | Hospitalist Progress Note ---
Date of Service August 15, 2023 Assessment & Plan (1) AMS (altered mental status): Plan: Pt is an 88yoM with PMhx significant for chronic diastolic heart failure (EF 60- 65%, TTE 2022), CAD sp CABG, SSS status post PPM, PAF, valvular heart disease (mild /MR/TR), hypertension, hyperlipidemia, colon cancer status post surgery/incomplete chemotherapy, prostate cancer status post radiation, DM2 on oral medications, past history DVT, dementia, history of MRSA bacteremia who was admitted with altered mental status in the setting of a covid infection. COVID 19 infection Acute Metabolic Encephalopathy Bio fire positive for COVID-19 on Jul 31, 2023 Acute metabolic encephalopathy--POA due to above Patient was brought to the hospital due to altered mental status. CT Chest: No acute findings in the chest. Was treated with albuterol, supplemental oxygen as needed, conservative management On RA currently, off isolation Waiting for rehab placement Left foot Cellulitis Multiple wounds Multiple contusions, abrasions secondary to fall on admission Head CT:No acute findings in the head/brain. CT ABD:No acute findings in the abdomen or pelvis. Imaging studies showed no fractures Noticed to have redness and open wound on left second toe Wound culture grew MRSA sensitive to vancomycin and daptomycin -Was treated with Vancomycin for 2 days before being switched to daptomycin -Imaging ordered on 08/13- Pt had pacemaker so MRI deferred, ordered xray of toe to rule out chronic osteomyelitis. -XRAY confirming osteomyelitis -Podiatry consulted-s/p left second toe amputation on 08/14, recs appreciated. Daptomycin discontinued. -[facility] ID was previously consulted before toe amputation. Given presumed source of infection removed with amputation, ID consult was canceled. H/O Dementia UA not suggestive of UTI Delirium precautions. Frequent reorientation, avoid sedating medications Continue home medications Palliative Care was consulted- appreciate recs CAD S/P CABG SSS S/P PPM Chronic diastolic heart failure EF 60-65%, TTE 2022 No signs of exacerbation Valvular heart disease (mild /MR/TR) Continue home medications Stable Hypertension Hyperlipidemia Continue home medications Colon cancer s/p surgery/incomplete chemotherapy Prostate cancer s/p radiation currently in remission DM II Last HbA1C: 8.6 Hold p.o. meds Continue insulin while hospitalized Monitor BGs DVT Px:Heparin Diet: HH/DMII CODE STATUS: DNR/DNI Dispo: Awaiting placement at [facility] Admission and Anticipated Discharge Date Admission Date: July 31, 2023 Subjective Pt seen in bed. Pleasantly demented. Review of Systems Review of Systems: Unobtainable due to cognitive status Physical Exam Physical Exam: General: Alert, orientedx1. No acute distress Skin: right foot, leg bandaged. Noted healing lesions on the left Psych: Appropriate mood and affect Neuro: No gross deficits HEENT: NC/AT CV: RRR Resp: Breath sounds decreased bilaterally, no increased effort of breathing. Abdomen: Soft Extremities: RLE bandaged, left foot in in shoe post-op Results & Data Results & Data Vital Signs (Past 12 Hours) Vital Signs Temp Pulse Resp BP Pulse Ox O2 Del Method 08/15/23 07:33 36.4 C L 60 18 154/89 H 96 Room Air
[2023-08-15] MEDS: MELATONIN 3 MG TAB PO SCH (20:17)
[2023-08-15] MEDS: ATORVASTATIN 40 MG TAB PO SCH (20:17)
[2023-08-16] MEDS: HEPARIN SOD 5,000 UNIT/0.5 ML VIAL SQ SCH ×3 (05:05→20:11)
[2023-08-16 06:11] LABS: Hematocrit (blood only) 41.9 % (42.0-52.0); Hemoglobin 14.1 g/dl (14.0-18.0); Mean Corpuscular Hemoglobin 30.2 pg (25.0-34.0); Mean Corpuscular Hgb Conc 33.7 g/dL (32.0-36.0); Mean Corpuscular Volume 89.7 fL (80.0-100.0); Mean Platelet Volume 10.5 fL (9.4-12.4); Platelet Count 195 K/uL (130-400); RDW Coefficient of Variation 14.5 % (11.5-14.5); RDW Standard Deviation 47.5 fL (36.4-46.3); Red Blood Count 4.67 M/uL (4.70-6.10); White Blood Count 6.58 K/ul (4.8-10.8)
[2023-08-16 06:21] LABS: BUN Creatinine Ratio 29.6 (10-20); Calcium 9.6 mg/dl (8.6-10.3); Creatinine Clr Calc Pharmacy 78.2 ml/min; Est GFR (Non-African American) 79.4 ml/min; Magnesium 2.1 mg/dl (1.7-2.4); Phosphorus 3.2 mg/dl (2.5-4.9); Potassium 4.2 mmol/L (3.5-5.1)
[2023-08-16] MEDS: ASPIRIN 81 MG ECTAB PO SCH (08:07)
[2023-08-16] MEDS: MULTIVITAMIN TAB PO SCH (08:08)
[2023-08-16] MEDS: CITALOPRAM 20 MG TAB PO SCH (08:08)
[2023-08-16] MEDS: ISOSORBIDE MONO EXTENDED REL 30 MG TABCR PO SCH (08:08)
[2023-08-16] MEDS: GABAPENTIN 100 MG CAP PO SCH ×2 (08:08→20:11)
[2023-08-16] MEDS: DONEPEZIL HCL 10 MG TAB PO SCH (08:08)
[2023-08-16] MEDS: METOPROLOL SUCC 50MG EXT REL TAB PO SCH (08:08)
[2023-08-16] MEDS: CLOPIDOGREL BISULFATE 75 MG TAB PO SCH (08:08)
[2023-08-16] MEDS: DOCUSATE SODIUM 100 MG CAP PO SCH ×2 (08:09→20:16)
[2023-08-16] MEDS: INSULIN ASPART PER UNIT CHARGE SC SCH ×4 (08:11→21:21)
[2023-08-16] MEDS: LANTUS PER UNIT CHARGE SQ SCH (08:13)
--- NOTE | 2023-08-16 11:51 | Hospitalist Progress Note ---
Date of Service August 16, 2023 Assessment & Plan (1) AMS (altered mental status): Plan: Pt is an 88yoM with PMhx significant for chronic diastolic heart failure (EF 60- 65%, TTE 2022), CAD sp CABG, SSS status post PPM, PAF, valvular heart disease (mild /MR/TR), hypertension, hyperlipidemia, colon cancer status post surgery/incomplete chemotherapy, prostate cancer status post radiation, DM2 on oral medications, past history DVT, dementia, history of MRSA bacteremia who was admitted with altered mental status in the setting of a covid infection. Pt is stable for discharge to SNF/Extended care. COVID 19 infection Acute Metabolic Encephalopathy Bio fire positive for COVID-19 on Jul 31, 2023 Acute metabolic encephalopathy--POA due to above Patient was brought to the hospital due to altered mental status. CT Chest: No acute findings in the chest. Was treated with albuterol, supplemental oxygen as needed, conservative management On RA currently, off isolation Waiting for SNF/Extended Care placement Left foot Cellulitis Multiple wounds Multiple contusions, abrasions secondary to fall on admission Head CT:No acute findings in the head/brain. CT ABD:No acute findings in the abdomen or pelvis. Imaging studies showed no fractures Noticed to have redness and open wound on left second toe Wound culture grew MRSA sensitive to vancomycin and daptomycin -Was treated with Vancomycin for 2 days before being switched to daptomycin -Imaging ordered on 08/13- Pt had pacemaker so MRI deferred, ordered xray of toe to rule out chronic osteomyelitis. -XRAY confirming osteomyelitis -Podiatry consulted-s/p left second toe amputation on 08/14, recs appreciated. [facility]aptomycin discontinued. [facility] before toe amputation. Given presumed source of infection removed with amputation, ID consult was canceled. Pt stable for discharge to SNF/Extended care. H/O Dementia UA not suggestive of UTI Delirium precautions. Frequent reorientation, avoid sedating medications Continue home medications Palliative Care was consulted- appreciate recs Pt stable for discharge to SNF/Extended care. CAD S/P CABG SSS S/P PPM Chronic diastolic heart failure EF 60-65%, TTE 2022 No signs of exacerbation Valvular heart disease (mild /MR/TR) Continue home medications Stable Hypertension Hyperlipidemia Continue home medications Colon cancer s/p surgery/incomplete chemotherapy Prostate cancer s/p radiation currently in remission DM II Last HbA1C: 8.6 Hold p.o. meds Continue insulin while hospitalized Monitor BGs DVT Px:Heparin Diet: HH/DMII CODE STATUS: DNR/DNI Dispo: Awaiting placement at [facility] Admission and Anticipated Discharge Date Admission Date: July 31, 2023 Subjective pt seen with at bedside. updated. Pt at baseline, pleasantly confused. Review of Systems Review of Systems: All systems reviewed & are unremarkable except as noted in Subjective Physical Exam Physical Exam: General: Alert, orientedx1. No acute distress Psych: Appropriate mood and affect Neuro: No gross deficits HEENT: NC/AT CV: RRR Resp: Breath sounds decreased bilaterally, no increased effort of breathing. Abdomen: Soft Extremities: RLE bandaged, left foot in in shoe post-op Results & Data Results & Data Vital Signs (Past 12 Hours) Vital Signs Temp Pulse Resp BP Pulse Ox O2 Del Method 08/16/23 07:40 36.6 C 60 18 115/71 98 Room Air
--- NOTE | 2023-08-16 12:05 | Orthopedic Progress Note ---
Date of Service August 16, 2023 Assessment & Plan (1) Osteomyelitis due to type 2 diabetes mellitus: Plan: Patient seen at bedside this am resting comfortably. Patient is status post day #2 (DOS: 08/14/23) left second toe amputation. Dry sterile dressing changed with out incident. No signs of infection were observed or reported. Patient is weight bearing as tolerated. Will continue to follow while Patient remains in house. Admission and Anticipated Discharge Date Admission Date: July 31, 2023 Subjective Patient seen in 314-1 at bedside this am resting comfortably. Patient is status post day #2 (DOS: 08/14/23) left second toe amputation. Physical Exam Constitutional: cooperative and comfortable Eyes: normal visual duckworth by confrontation Neck: normal visual inspection Respiratory: normal respiratory effort Cardiovascular: Rate/Rhythm: regular rate and regular rhythm Vessels: posterior tibial pulses present and dorsalis pedis pulses present Musculoskeletal: Extremities: extremities normal to inspection Skin: + incision (Left second toe amputation s ite well coapted. Sutures intact. ) Results & Data Vital Signs (Past 12 Hours) Vital Signs Temp Pulse Resp BP Pulse Ox O2 Del Method 08/16/23 07:40 36.6 C 60 18 115/71 98 Room Air
[2023-08-16] MEDS: ATORVASTATIN 40 MG TAB PO SCH (20:10)
[2023-08-16] MEDS: ACETAMINOPHEN 325 MG TAB PO PRN (20:16)
[2023-08-16] MEDS: MELATONIN 3 MG TAB PO SCH (20:16)
[2023-08-17] MEDS: HEPARIN SOD 5,000 UNIT/0.5 ML VIAL SQ SCH ×3 (05:46→19:58)
[2023-08-17 06:29] LABS: Hematocrit (blood only) 41.1 % (42.0-52.0); Hemoglobin 13.2 g/dl (14.0-18.0); Mean Corpuscular Hemoglobin 29.3 pg (25.0-34.0); Mean Corpuscular Hgb Conc 32.1 g/dL (32.0-36.0); Mean Corpuscular Volume 91.3 fL (80.0-100.0); Platelet Count 201 K/uL (130-400); RDW Coefficient of Variation 14.7 % (11.5-14.5); RDW Standard Deviation 49.2 fL (36.4-46.3); White Blood Count 5.86 K/ul (4.8-10.8)
[2023-08-17 06:32] LABS: BUN Creatinine Ratio 39.8 (10-20); Calcium 9.4 mg/dl (8.6-10.3); Creatinine Clr Calc Pharmacy 68.9 ml/min; Est GFR (African American) 84.7 ml/min; Magnesium 2.1 mg/dl (1.7-2.4); Potassium 4.3 mmol/L (3.5-5.1)
[2023-08-17] MEDS: ASPIRIN 81 MG ECTAB PO SCH (07:29)
[2023-08-17] MEDS: ISOSORBIDE MONO EXTENDED REL 30 MG TABCR PO SCH (07:29)
[2023-08-17] MEDS: GABAPENTIN 100 MG CAP PO SCH ×2 (07:29→19:57)
[2023-08-17] MEDS: MULTIVITAMIN TAB PO SCH (07:29)
[2023-08-17] MEDS: CLOPIDOGREL BISULFATE 75 MG TAB PO SCH (07:29)
[2023-08-17] MEDS: DONEPEZIL HCL 10 MG TAB PO SCH (07:30)
[2023-08-17] MEDS: METOPROLOL SUCC 50MG EXT REL TAB PO SCH (07:30)
[2023-08-17] MEDS: CITALOPRAM 20 MG TAB PO SCH (07:30)
[2023-08-17] MEDS: DOCUSATE SODIUM 100 MG CAP PO SCH ×2 (07:32→20:01)
[2023-08-17] MEDS: INSULIN ASPART PER UNIT CHARGE SC SCH ×4 (07:52→21:05)
[2023-08-17] MEDS: LANTUS PER UNIT CHARGE SQ SCH (07:52)
--- NOTE | 2023-08-17 17:41 | Hospitalist Progress Note ---
Date of Service August 17, 2023 Assessment & Plan (1) AMS (altered mental status): Plan: Pt is an 88yoM with PMhx significant for chronic diastolic heart failure (EF 60- 65%, TTE 2022), CAD sp CABG, SSS status post PPM, PAF, valvular heart disease (mild /MR/TR), hypertension, hyperlipidemia, colon cancer status post surgery/incomplete chemotherapy, prostate cancer status post radiation, DM2 on oral medications, past history DVT, dementia, history of MRSA bacteremia who was admitted with altered mental status in the setting of a covid infection. Pt is stable for discharge to SNF/Extended care. COVID 19 infection Acute Metabolic Encephalopathy Bio fire positive for COVID-19 on Jul 31, 2023 Acute metabolic encephalopathy--POA due to above Patient was brought to the hospital due to altered mental status. CT Chest: No acute findings in the chest. Was treated with albuterol, supplemental oxygen as needed, conservative management On RA currently, off isolation Waiting for SNF/Extended Care placement Left foot Cellulitis Multiple wounds Multiple contusions, abrasions secondary to fall on admission Head CT:No acute findings in the head/brain. CT ABD:No acute findings in the abdomen or pelvis. Imaging studies showed no fractures Noticed to have redness and open wound on left second toe Wound culture grew MRSA sensitive to vancomycin and daptomycin -Was treated with Vancomycin for 2 days before being switched to daptomycin -Imaging ordered on 08/13- Pt had pacemaker so MRI deferred, ordered xray of toe to rule out chronic osteomyelitis. -XRAY confirming osteomyelitis -Podiatry consulted-s/p left second toe amputation on 08/14, recs appreciated. [facility] before toe amputation. Given presumed source of infection removed with amputation, ID consult was canceled. Pt stable for discharge to SNF/Extended care. H/O Dementia UA not suggestive of UTI Delirium precautions. Frequent reorientation, avoid sedating medications Continue home medications Palliative Care was consulted- appreciate recs Pt stable for discharge to SNF/Extended care. CAD S/P CABG SSS S/P PPM Chronic diastolic heart failure EF 60-65%, TTE 2022 No signs of exacerbation Valvular heart disease (mild /MR/TR) Continue home medications Stable Hypertension Hyperlipidemia Continue home medications Colon cancer s/p surgery/incomplete chemotherapy Prostate cancer s/p radiation currently in remission DM II Last HbA1C: 8.6 Hold p.o. meds Continue insulin while hospitalized Monitor BGs DVT Px:Heparin Diet: HH/DMII CODE STATUS: DNR/DNI Dispo: Awaiting placement at [facility] Admission and Anticipated Discharge Date Admission Date: July 31, 2023 Subjective Seen sitting at bedside in chair. Pleasantly demented. No acute concerns. Review of Systems Review of Systems: All systems reviewed & are unremarkable except as noted in Subjective Physical Exam Physical Exam: General: Alert, orientedx1. No acute distress Psych: Appropriate mood and affect Neuro: No gross deficits HEENT: NC/AT CV: RRR Resp: Breath sounds decreased bilaterally, no increased effort of breathing. Abdomen: Soft Extremities: RLE bandaged, left foot in in shoe post-op Results & Data Results & Data Vital Signs (Past 12 Hours) Vital Signs Temp Pulse Resp BP Pulse Ox O2 Del Method 08/17/23 07:26 36.3 C L 66 17 120/76 95 Room Air
[2023-08-17] MEDS: ATORVASTATIN 40 MG TAB PO SCH (19:57)
[2023-08-17] MEDS: ACETAMINOPHEN 325 MG TAB PO PRN (19:58)
[2023-08-17] MEDS: MELATONIN 3 MG TAB PO SCH (19:58)
--- NOTE | 2023-08-17 21:04 | Orthopedic Progress Note ---
Date of Service August 17, 2023 Assessment & Plan (1) Osteomyelitis due to type 2 diabetes mellitus: Plan: Patient seen at bedside this am resting comfortably. Patient is status post day #3 (DOS: 08/14/23) left second toe amputation. Dry sterile dressing changed with out incident. No signs of infection were observed or reported. Patient is weight bearing as tolerated. Will continue to follow while Patient remains in house. Admission and Anticipated Discharge Date Admission Date: July 31, 2023 Subjective Patient seen at bedside resting comfortably with no complaints. Patient is status post day #3 (DOS: 08/14/23) left second toe amputation.. Physical Exam Constitutional: cooperative and comfortable Eyes: normal visual duckworth by confrontation Neck: normal visual inspection Respiratory: normal respiratory effort Cardiovascular: Rate/Rhythm: regular rate and regular rhythm Vessels: posterior tibial pulses present and dorsalis pedis pulses present Musculoskeletal: Extremities: extremities normal to inspection Skin: + ulcer (Left second toe ulcer) and + in cision (Left second toe amputation site well coapted. Sutures intact. ) Results & Data Vital Signs (Past 12 Hours) Vital Signs Temp Pulse Resp BP Pulse Ox O2 Del Method 08/17/23 19:53 36.8 C 61 18 125/72 96 Room Air 08/17/23 15:06 36.4 C L 60 19 131/73 94 Room Air
[2023-08-18] MEDS: HEPARIN SOD 5,000 UNIT/0.5 ML VIAL SQ SCH (05:47)
[2023-08-18 06:43] LABS: Hematocrit (blood only) 39.2 % (42.0-52.0); Mean Corpuscular Hemoglobin 29.7 pg (25.0-34.0); Mean Corpuscular Hgb Conc 33.2 g/dL (32.0-36.0); Mean Corpuscular Volume 89.7 fL (80.0-100.0); Mean Platelet Volume 9.9 fL (9.4-12.4); Platelet Count 191 K/uL (130-400); RDW Coefficient of Variation 14.4 % (11.5-14.5); RDW Standard Deviation 46.5 fL (36.4-46.3); Red Blood Count 4.37 M/uL (4.70-6.10); White Blood Count 5.28 K/ul (4.8-10.8)
[2023-08-18 07:07] LABS: BUN Creatinine Ratio 39.3 (10-20); Calcium 9.4 mg/dl (8.6-10.3); Creatinine Clr Calc Pharmacy 64.8 ml/min; Est GFR (African American) 88.5 ml/min; Est GFR (Non-African American) 76.3 ml/min; Magnesium 2.1 mg/dl (1.7-2.4); Phosphorus 3.4 mg/dl (2.5-4.9); Potassium 4.1 mmol/L (3.5-5.1)
[2023-08-18] MEDS: LANTUS PER UNIT CHARGE SQ SCH (08:15)
[2023-08-18] MEDS: INSULIN ASPART PER UNIT CHARGE SC SCH ×2 (08:15→12:05)
[2023-08-18] MEDS: DOCUSATE SODIUM 100 MG CAP PO SCH (08:16)
[2023-08-18] MEDS: ASPIRIN 81 MG ECTAB PO SCH (08:16)
[2023-08-18] MEDS: CLOPIDOGREL BISULFATE 75 MG TAB PO SCH (08:16)
[2023-08-18] MEDS: GABAPENTIN 100 MG CAP PO SCH (08:17)
[2023-08-18] MEDS: ISOSORBIDE MONO EXTENDED REL 30 MG TABCR PO SCH (08:17)
[2023-08-18] MEDS: DONEPEZIL HCL 10 MG TAB PO SCH (08:17)
[2023-08-18] MEDS: CITALOPRAM 20 MG TAB PO SCH (08:17)
[2023-08-18] MEDS: METOPROLOL SUCC 50MG EXT REL TAB PO SCH (08:17)
[2023-08-18] MEDS: MULTIVITAMIN TAB PO SCH (10:18)
--- NOTE | 2023-08-18 12:59 | Discharge Summary ---
Discharge Summary Date of Service August 18, 2023 Notes For Next Care Provider S/p left second toe amputation on 08/14/2023. Discharged with dry sterile dressing. Per podiatry, weightbearing as tolerated. Palliative Care was consulted- recommended hospice at SNF for advanced dementia Medication Changes From Visit Colace 100mg BID Admission HPI Per Admitting Provider History obtained from patient, family, and records. Limited history from patient secondary to dementia. Medical history significant for chronic diastolic heart failure (EF 60-65%, TTE 2022), CAD sp CABG, SSS status post PPM, PAF, valvular heart disease (mild /MR/TR), hypertension, hyperlipidemia, colon cancer status post surgery/incomplete chemotherapy, prostate cancer status post radiation, DM2 on oral medications, past history DVT, dementia, history of MRSA bacteremia status post antibiotic Rx. Last confinement May 2023 for MRSA bacteremia and ambulatory dysfunction. Patient completed IV vancomycin Rx. Patient discharged from hospital to [facility] where patient stayed until end of 2022. Patient not happy with care at SNF leading to discharge AGAINST MEDICAL ADVICE. Home visit from outpatient provider last week. expressed interest in restarting hospice if able. Patient previously on [facility] hospice care up until February 2023. finding it more difficult to care for patient the last couple of weeks. Patient found naked at the bottom of 6 steps at home today. Patient does not recall how things happened. Denies headache, chest pain, SOB, syncope, abdominal pain. Noted to have multiple abrasions and contusions over the upper extremities. Patient more confused than usual as per . Patient brought to the ER for evaluation. Medical History as above Surgical History : Partial colectomy, cataract surgeries, hip surgeries, right shoulder surgery Family History : Hypertension Personal/Social history : Non-smoker, occasional EtOH intake, retired [employer] employee Admission Exam Per Admitting Provider GENERAL: Demented, pleasant, obese, slightly hard of hearing SKIN: Normal color, warm HEENT: Alopecia, oink palpebral conjunctivae, no ptosis, dry buccal mucosa NECK : Supple, no tenderness CHEST : Decreased breath sounds, expiratory wheezes, no tenderness HEART : RRR, systolic murmur ABDOMEN: Some distention, nontender EXTREMITIES : Contusions over upper extremities, minimal LE swelling, no LE tenderness NEUROLOGIC : Demented, no facial asymmetry, slightly hard of hearing, gait and stance not assessed Principal Dx & Hospital Course #1 = Principal Diagnosis (1) AMS (altered mental status): Pt is an 88yoM with PMhx significant for chronic diastolic heart failure (EF 60- 65%, TTE 2022), CAD sp CABG, SSS status post PPM, PAF, valvular heart disease (mild /MR/TR), hypertension, hyperlipidemia, colon cancer status post surgery/incomplete chemotherapy, prostate cancer status post radiation, DM2 on oral medications, past history DVT, dementia, history of MRSA bacteremia who was admitted with altered mental status in the setting of a covid infection. Course involved amputation of left second toe by Podiatry for an osteomyelitis infection. Pt discharged to SNF/[facility] care facility [facility]. COVID 19 infection Acute Metabolic Encephalopathy Bio fire positive for COVID-19 on Jul 31, 2023 Acute metabolic encephalopathy--POA due to above Patient was brought to the hospital due to altered mental status. CT Chest: No acute findings in the chest. Was treated with albuterol, supplemental oxygen as needed, conservative management On RA at time of discharge, off isolation. Left foot Cellulitis Multiple wounds Multiple contusions, abrasions secondary to fall on admission Head CT:No acute findings in the head/brain. CT ABD:No acute findings in the abdomen or pelvis. Imaging studies showed no fractures Noticed to have redness and open wound on left second toe Wound culture grew MRSA sensitive to vancomycin and daptomycin -Was treated with Vancomycin for 2 days before being switched to daptomycin -Imaging ordered on 08/13- Pt had pacemaker so MRI deferred, xray of second toe was ordered to rule out chronic osteomyelitis. -XRAY second toe confirming osteomyelitis -Podiatry was consulted-s/p left second toe amputation on 08/14/2023. Since the source of infection was removed, Daptomycin was discontinued. -Consult had been placed to [facility] before toe amputation. Given presumed source of infection removed with amputation, ID consult was canceled before they saw the pt. -Pt was seen by podiatry for follow up while hospitalized and discharged with dry sterile dressing. Per podiatry, weightbearing as tolerated. Pt stable for discharge to SNF/Extended care. H/O Dementia UA was ordered and was not suggestive of UTI Delirium precautions were employed with frequent reorientation, avoided sedating medications Continue home medications Palliative Care was consulted- recommended hospice at SNF for advanced dementia CAD S/P CABG SSS S/P PPM Chronic diastolic heart failure EF 60-65%, TTE 2022 No signs of exacerbation Valvular heart disease (mild /MR/TR) Continue home medications Stable Hypertension Hyperlipidemia Continue home medications Colon cancer s/p surgery/incomplete chemotherapy Prostate cancer s/p radiation currently in remission DM II Last HbA1C: 8.6 Basal/bolus regimen per protocol while hospitalized Home meds were held Resume home po meds with pcp follow up for optimal control Discharge Exam General: Alert, orientedx1. No acute distress Psych: Appropriate mood and affect Neuro: No gross deficits HEENT: NC/AT CV: RRR Resp: Breath sounds decreased bilaterally, no increased effort of breathing. Abdomen: Soft Extremities: RLE bandaged, left foot in post op shoe Updated Medication List Medication Instructions Recorded Confirmed Type aspirin 81 mg tablet,delayed 81 mg PO QAM 05/15/23 07/31/23 History release atorvastatin 40 mg tablet 40 mg PO HS 05/15/23 07/31/23 History biotin 5 mg tablet 5 mg PO QAM 05/15/23 07/31/23 History citalopram 20 mg tablet 20 mg PO QAM 05/15/23 07/31/23 History clopidogrel 75 mg tablet 75 mg PO DAILY 05/15/23 07/31/23 History donepezil 10 mg tablet 10 mg PO DAILY 05/15/23 07/31/23 History empagliflozin 25 mg tablet 25 mg PO DAILY 05/15/23 07/31/23 History gabapentin 100 mg capsule 100 mg PO BID 05/15/23 07/31/23 History isosorbide mononitrate 30 mg 30 mg PO DAILY 05/15/23 07/31/23 History tablet,extended release 24 hr loperamide 2 mg capsule 2 mg PO QAM 05/15/23 07/31/23 History meclizine 25 mg tablet 25 mg PO DAILY PRN dizzyness 05/15/23 07/31/23 History melatonin 10 mg tablet 10 mg PO HS 05/15/23 07/31/23 History metformin 500 mg tablet,extended 500 mg PO BID 05/15/23 07/31/23 History release 24 hr metoprolol succinate 50 mg 50 mg PO QAM 05/15/23 07/31/23 History tablet,extended release 24 hr multivitamin 1 tab PO DAILY 05/15/23 07/31/23 History omega-3 fatty acids 1,000 mg 1,000 mg PO DAILY 05/15/23 07/31/23 History capsule semaglutide 7 mg tablet (Rybelsus) 7 mg PO QAM 05/15/23 07/31/23 History docusate sodium 100 mg capsule 100 mg PO BID #60 caps 08/18/23 Rx Hospital Stay Data Consultations 07/31/23 05:53 ED Decision to Admit Stat 07/31/23 11:30 Consult Palliative Care Routine 08/14/23 09:46 Consult Podiatry Routine Procedures Performed Operation Date: 08/14/23 13:30 Actual Procedures p Left Second Toe Amputation(Left) - Jayy Magdaleno, ADRIANAM, MS Diagnostic Imagining Performed 07/31/23 02:04 CT cervical spine wo con Stat CT head/brain wo con Stat 07/31/23 02:21 CT abd pelvis IV con only Stat CT chest diagnostic w con Stat Cervical Spine CT 07/31/23 02:04 Exam(s): CT C SPINE EXAM: CT Cervical Spine Without Intravenous Contrast CLINICAL HISTORY: Reason for exam: trauma. TECHNIQUE: Axial computed tomography images of the cervical spine without intravenous contrast. CTDI is 26.96 mGy and DLP is 515.99 mGy-cm. Automated exposure control was utilized for the study. A dose lowering technique was utilized adhering to the principles of ALARA. COMPARISON: 05/15/2023 FINDINGS: Vertebrae: Reversal of normal lordosis with a mild kyphosis of the upper cervical spine. Grade 1 anterolisthesis of C7 relative to T1. Otherwise alignment is maintained with preservation of vertebral body heights. No acute fracture. Discs/spinal canal/neural foramina: Multilevel degenerative disc disease at the C3-4 through C7-T1 with prominent anterior bony spurs. Moderate bony spinal canal stenosis at the C5-6 and C6-7 levels. Soft tissues: Unremarkable. IMPRESSION: No acute findings in the cervical spine. Electronically signed by: Mello Mueller M.D. 07/31/23 03:06 AM Chest X-Ray 07/31/23 02:04 SINGLE VIEW CHEST CLINICAL HISTORY: Trauma. FINDINGS: 2 AP, portable, upright chest radiographs are compared to study dated 06/02/2023 and correlated with chest CT performed the same day 07/31/2023. The examination is degraded by portable technique and patient rotation. A 2-lead cardiac pacemaker is unchanged in position. The heart is enlarged noting atherosclerotic calcification of the thoracic aorta. The pulmonary vasculature is noncongested. Chronic interstitial thickening is similar to previous. Scarring/atelectasis is noted at the lung bases. The lungs and pleural spaces are otherwise clear. No pneumothorax is seen. The skeletal structures are osteopenic. The bony thorax is grossly intact. A left shoulder arthroplasty is in place. IMPRESSION: 1. Cardiomegaly and cardiac pacemaker without radiographic evidence of congest michael failure. 2. No airspace consolidation or large pleural effusion is identified. ACT 112: Negative or not required by law. Electronically signed by: Adam Marie M.D. 07/31/2023 8:03 AM Elbow X-Ray 07/31/23 02:04 XR elbow LT min 3V routine CLINICAL HISTORY: trauma COMPARISON: None FINDINGS: An IV within the left antecubital fossa is incidentally noted. There is no acute fracture within the left elbow. No evidence for a left elbow joint effusion. Chondrocalcinosis is noted. Mild osteoarthritis within the left elbow is present. IMPRESSION: No acute fracture. No evidence for a left elbow joint effusion. ACT 112: Negative or not required by law. Electronically signed by: David Rivera M.D. 07/31/2023 7:20 AM Forearm X-Ray 07/31/23 02:04 XR forearm RT 2V CLINICAL HISTORY: trauma COMPARISON: Right hand radiographs July 23, 2021. FINDINGS: There is no acute fracture within the right radius or ulna. No osseous lesions are identified. Moderate vascular calcification is incidentally noted. IMPRESSION: No acute fracture within the right radius or ulna. ACT 112: Negative or not required by law. Electronically signed by: David Rivera M.D. 07/31/2023 7:[address] 07/31/23 02:04 Exam(s): CT HEAD Without Contrast EXAM: CT Head Without Intravenous Contrast CLINICAL HISTORY: Reason for exam: trauma. TECHNIQUE: Axial computed tomography images of the head/brain without intravenous contrast. CTDI is 37.22 mGy and DLP is 624.41 mGy-cm. Automated exposure control was utilized for the study. A dose lowering technique was utilized adhering to the principles of ALARA. COMPARISON: 05/15/2023 FINDINGS: Brain: Mild periventricular white matter changes, likely related to microangiopathy. No hemorrhage. Ventricles: Unremarkable. No ventriculomegaly. Bones/joints: Unremarkable. No acute fracture. Soft tissues: Unremarkable. Sinuses: Unremarkable as visualized. No acute sinusitis. Mastoid air cells: Unremarkable as visualized. No mastoid effusion. IMPRESSION: No acute findings in the head/brain. Electronically signed by: Mello Mueller M.D. 07/31/23 03:02 AM Knee X-Ray 07/31/23 02:04 LEFT KNEE 2 VIEWS CLINICAL HISTORY: Trauma. FINDINGS: AP and crosstable lateral views of the left knee are obtained. No prior studies are available for comparison at the time of dictation. The Skeletal structures are osteopenic. No fracture is seen. There is moderate to severe tricompartmental degenerative joint space narrowing, greatest in the medial compartment. There are marginal osteophytes and patellar enthesophytes. There is chondrocalcinosis in the medial and lateral compartments. A small joint effusion is noted. There is mild prepatellar soft tissue swelling. Advanced atherosclerotic calcification is noted in the popliteal artery. IMPRESSION: 1. Soft tissue swelling and small joint effusion with no acute bony abnormality identified. 2. Osteopenia with degenerative change and chondrocalcinosis as above. Electronically signed by: Adam Marie M.D. 07/31/2023 8:18 AM Knee X-Ray 07/31/23 02:04 RIGHT KNEE 2 VIEWS CLINICAL HISTORY: Fall. FINDINGS: AP and crosstable lateral views of the right knee are compared to study dated 01/16/2022. The skeletal structures are osteopenic. No fracture is seen. There is moderate to advanced tricompartmental degenerative joint space narrowing, greatest in the medial and patellofemoral compartments. There are marginal osteophytes and patellar enthesophytes. Chondrocalcinosis is noted in the medial and lateral compartment. There is a small joint effusion. Prepatellar soft tissue swelling is observed. There is advanced atherosclerotic calcification of the popliteal artery. IMPRESSION: 1. Soft tissue swelling and joint effusion with no fracture identified. 2. Osteopenia with degenerative change and chondrocalcinosis as above. Electronically signed by: Adam Marie M.D. 07/31/2023 8:05 AM Pelvis X-Ray 07/31/23 02:04 SINGLE VIEW PELVIS CLINICAL HISTORY: Trauma. FINDINGS: 2 AP, portable, supine pelvic radiographs are compared to study dated 02/01/2014 and correlated with pelvic CT performed the same day 07/31/2023. The skeletal structures are osteopenic. There is no radiographic evidence of acute fracture involving the hips or bony pelvis. Bilateral hip arthroplasties are in place. Degenerative change is noted in the sacroiliac joints. Lumbosacral spondylosis is partially imaged. Metallic implants are noted in the prostate. Excreted IV contrast fills the bladder. There are numerous pelvic phleboliths. IMPRESSION: No acute bony abnormality is identified. Electronically signed by: Adam Marie M.D. 07/31/2023 8:01 AM Abdomen/Pelvis CT 07/31/23 02:21 Exam(s): CT ABDOMEN + PELVIS With Contrast IV Amt: 83 ML OPTIRAY 320 EXAM: CT Abdomen and Pelvis With Intravenous Contrast CLINICAL HISTORY: Reason for exam: trauma. TECHNIQUE: Axial computed tomography images of the abdomen and pelvis with intravenous contrast. CTDI is 28.14 mGy and DLP is 1584.26 mGy-cm. Automated exposure control was utilized for the study. A dose lowering technique was utilized adhering to the principles of ALARA. CONTRAST: Patient received 83 ML OPTIRAY 320 of IV contrast COMPARISON: 08/03/2017 FINDINGS: ABDOMEN: Liver: Unremarkable. No mass. Gallbladder and bile ducts: Unremarkable. No calcified stones. No ductal dilation. Pancreas: Unremarkable. No mass. No ductal dilation. Spleen: Unremarkable. No splenomegaly. Adrenals: Unremarkable. No mass. Kidneys and ureters: Unremarkable. No solid mass. No hydronephrosis. Stomach and bowel: Patient is status post right hemicolectomy. No obstruction. PELVIS: Appendix: See above. Bladder: Unremarkable. No mass. Reproductive: Unremarkable as visualized. ABDOMEN and PELVIS: Intraperitoneal space: Unremarkable. No free air. No significant fluid collection. Bones/joints: No acute fracture. No dislocation. Soft tissues: Unremarkable. Vasculature: Unremarkable. No abdominal aortic aneurysm. Lymph nodes: Unremarkable. No enlarged lymph nodes. IMPRESSION: No acute findings in the abdomen or pelvis. Electronically signed by: Mello Mueller M.D. 07/31/23 03:[address] 07/31/23 02:21 Exam(s): CT CHEST With Contrast IV Amt: 83 ML OPTIRAY 320 EXAM: CT Chest With Intravenous Contrast CLINICAL HISTORY: Reason for exam: trauma. TECHNIQUE: Axial computed tomography images of the chest with intravenous contrast. CTDI is 28.14 mGy and DLP is 993.24 mGy-cm. Automated exposure control was utilized for the study. A dose lowering technique was utilized adhering to the principles of ALARA. CONTRAST: Patient received 83 ML OPTIRAY 320 of IV contrast COMPARISON: 07/23/2015 FINDINGS: Lungs: Lungs demonstrate bilateral dependent atelectasis. No mass. Pleural space: Unremarkable. No pneumothorax. No significant effusion. Heart: Mild cardiomegaly. No significant pericardial effusion. No significant coronary artery calcifications. Bones/joints: Unremarkable. No acute fracture. No dislocation. Soft tissues: Unremarkable. Vasculature: Unremarkable. No thoracic aortic aneurysm. Lymph nodes: Unremarkable. No enlarged lymph nodes. IMPRESSION: No acute findings in the chest. Electronically signed by: Mello Mueller M.D. 07/31/23 03:17 AM Toe X-Ray 08/13/23 18:04 XR toe(s) LT min 2V CLINICAL HISTORY: r/o chronic osteomyelitis COMPARISON: Left foot radiographs July 23, 2021. FINDINGS: There is erosion of the distal tuft of the distal phalanx of the left second toe. This is new since radiographs of July 23, 2021. No acute fractures are identified within the left second toe. K wire within the left third metatarsal is unchanged. Postoperative findings within the left third toe are unchanged. IMPRESSION: Erosion of the distal tuft of the distal phalanx of the left second toe, new since radiographs of July 23, 2021. This is suggestive of osteomyelitis. ACT 112: Negative or not required by law. Electronically signed by: David Rivera M.D. 08/14/2023 7:47 AM Discharge Instructions Given to Patient (Per Discharging Provider) Mr. Noyola, You were admitted with increased confusion in the setting of a covid infection. You also had a bone infection in your left second toe and you had that amputated while you were here. Your symptoms improved and you are now back to your baseline. We are discharging you to a care home facility for further care. Please continue with a daily stool softener like you were doing here. That is the only change we made to your medications. Please keep close follow up with your primary care provider after discharge. Please do not hesitate to come back to the emergency room if your symptoms worsen or return. It was a pleasure taking care of you while you were here. Total Time Total Time Spent Total Time Spent (In Minutes): > 30 minutes
== END 2023-08-18 13:59 | DRG 981 ==
LOC: ED 01:27 → SUATTDRO 07:06 → EDINP 07:06 → 2W 22:22 → 3E 08-05 18:13

== ENCOUNTER 2024-01-20 14:23 | Inpatient (IN) ==
--- NOTE | 2024-01-20 14:31 | Emergency Department Note ---
Impression & Plan Dementia, Ambulatory dysfunction ED Provider Note NAME: JOAQUIN MARISCAL AGE: 88 SEX: M : 1935 ARRIVES VIA: Ambulance INFORMANT: Patient ED PROVIDER(S): Olu Almaraz MD CHIEF COMPLAINT: Weakness, Placement PLAN: Disposition: Admit MEDICAL DECISION MAKING: The patient is a pleasant 88-year-old gentleman with a past medical history of dementia, ambulatory dysfunction, hypertension, hyperlipidemia, CAD who presents to emergency department via EMS from his home after the patient was taken out of his halfway facility earlier this morning AGAINST MEDICAL ADVICE by his . I was able to speak to the over the phone and she explained that the patient is always begging her to take him home and she felt that by taking him home today he would see that it will not work and will stop bleeding so often to be taken home. She does acknowledge that his dementia has been getting worse and there is a likely chance that he will not remember this event but she was hopeful that he could have a positive effect. She is confident she cannot take care of him at their home. Per EMS the patient's baseline amatory gait was having a support belt and 2 staff members keeping him up to avoid falling. The patient is a poor historian. He has no complaints. He admits he was too weak to walk up to the second floor. He reports he and his have been 2 years however his confirms that they have been for 10 years. She reports that he still feels his brothers are alive, and they have long past. she reports that she is fine with the patient returning to his halfway facility at [facility] in [place]. On evaluation the patient is no distress, pleasantly confused, afebrile with stable vital signs. He appears clinically dry. He is moving all extremities equally without focal weakness. EKG is paced without overt acute ischemia. WBC, HCT, platelets within normal limits. Chemistry without metabolic acidosis. Electrolytes without significant abnormality. LFTs unremarkable. TSH within normal limits. UA without evidence of infection. COVID-19 RNA, DANNY test was negative. Chest x-ray was negative for acute cardiopulmonary process per my preliminary independent interpretation. Appreciate case management assistance/consultation who did contact the patient's halfway facility at [facility]. They reported that they would not accept the patient back as it seems to be their policy due to the patient leaving AGAINST MEDICAL ADVICE despite they are insistent that the patient would not be safe at home and reiterated this to the . They report that they also contacted the office of aging so they may investigate the situation. Our case management team did reach out to the office of aging and they report that they do not plan to become involved in this case at this time. They also understood that their facility could refused to accept the patient back. Thus, given patient has no safe discharge plan patient will need to be admitted to the hospital for placement. Case was discussed with Rohit Baird, with Rohit Orozco who will evaluate the patient for admission. Further management per admitting team. Triage Nursing notes reviewed and agree them. Prior/external medical records reviewed Vital Signs: reviewed Differential diagnosis: Infection, dehydration, metabolic abnormality, hypo/hyperglycemia, electrolyte disturbance, anemia, hypoxia, cardiac sources, intracerebral event, toxicologic, neurologic, as well as other pathologies. ER treatment provided: See below. Diagnostics interpreted by me: ECG: Ventricular paced rhythm, 69 bpm, no overt acute ischemia. Cardiac Monitoring: An order for continuous cardiac monitoring was placed and demonstrated Ventricular paced rhythm, 69 bpm. Laboratory studies: See below Imaging studies: See below Consultation(s): Case management Rohit Baird, with Rohit Orozco. HPI: The patient is a pleasant 88-year-old gentleman with a past medical history of dementia, ambulatory dysfunction, hypertension, hyperlipidemia, CAD who presents to emergency department via EMS from his home after the patient was taken out of his halfway facility earlier this morning AGAINST MEDICAL ADVICE by his . I was able to speak to the over the phone and she explained that the patient is always begging her to take him home and she felt that by taking him home today he would see that it will not work and will stop bleeding so often to be taken home. She does acknowledge that his dementia has been getting worse and there is a likely chance that he will not remember this event but she was hopeful that he could have a positive effect. She is confident she cannot take care of him at their home. Per EMS the patient's baseline amatory gait was having a support belt and 2 staff members keeping him up to avoid falling. The patient is a poor historian. He has no complaints. He admits he was too weak to walk up to the second floor. He reports he and his have been 2 years however his confirms that they have been for 10 years. She reports that he still feels his brothers are alive, and they have long past. she reports that she is fine with the patient returning to his halfway facility at [facility] in [place]. ROS: See above HPI for pertinent positives & negatives. A total of 10 systems reviewed and were otherwise negative. VITALS:See Below PHYSICAL EXAMINATION: GENERAL: Awake, alert, in no distress HENT: Normocephalic, atraumatic. Oropharynx with dry mucous membranes and otherwise unremarkable EYES: Normal conjunctiva. Sclera non-icteric. NECK: Supple. No nuchal rigidity. FROM. No JVD. RESPIRATORY: Clear to auscultation. CARDIAC: Regular rate, normal rhythm. Extremities warm and well perfused. Pulses equal. ABDOMEN: Soft, non-distended. No tenderness to palpation. No rebound or guarding. No masses. MUSCULOSKELETAL: Chest examination reveals no tenderness. The back is symmetrical on inspection without obvious abnormality. There is no CVA tenderness to palpation. No joint edema. LOWER EXTREMITIES: Calves are equal size bilaterally and non-tender. No edema. No discoloration. NEURO: Pleasantly confused at baseline for dementia. No focal sensory or motor deficits noted. 4+/5 strength and SILT x 4 extremities. SKIN: No rash or jaundice noted. Olu Almaraz MD Past Med/Surg History Problem List (Updated 01/21/24 @ 02:01 by Olu Almaraz MD) Ambulatory dysfunction (Acute) Dementia (Acute) Osteomyelitis due to type 2 diabetes mellitus Diabetic toe ulcer Palliative care by specialist COVID Discussion about advance care planning held with family member Dyspnea and respiratory abnormalities Dementia with behavioral disturbance Confusion Weakness generalized Abrasions of multiple sites (Acute) Dementia (Acute) Fall (Acute) Contusion of multiple sites (Acute) Bacteremia due to methicillin resistant Staphylococcus aureus AMS (altered mental status) (Acute) Cough (Acute) Elevated brain natriuretic peptide (BNP) level (Acute) Weakness (Acute) Fall (Acute) Encephalopathy Traumatic arthritis of right knee Traumatic arthritis of left knee Obesity Fall (Acute) Acute knee pain (Acute) Ambulatory dysfunction (Acute) Dementia (Acute) Acute dehydration (Acute) Frequent falls SSS (sick sinus syndrome) Pt admitted for elective ppm due to SSS. Underwent procedure without any complications monitored overnight and discharged home. He was restarted back on his toprol 25mg daily. 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) RBBB Sinus node dysfunction Paroxysmal atrial fibrillation NSTEMI (non-ST elevated myocardial infarction) DVT prophylaxis Diabetic neuropathy CAD (coronary artery disease) Hyperlipidemia Sleep apnea cpap Left-sided chest pain (Acute) Hyperglycemia (Acute) Hypertension (Acute) DM (diabetes mellitus) (Chronic) Hypercholesteremia (Chronic) DJD of shoulder (Acute) Osteoarthritis, shoulder (Acute) Deep vein thrombosis (Acute) Colon cancer (Acute 07/01/17) "Rectal bleeding and anemia Colonoscopy revealing a lesion at 70 cm biopsy positive for adenocarcinoma Colorectal surgical consultation scheduled" Medical History Diabetes mellitus, type 2 History of colon cancer 2017--sx/oral chemo History of prostate cancer 2013--sx/radiation History of deep vein thrombosis (DVT) of lower extremity right leg---no blood thinners Hearing deficit Depression Dementia Hypertension Myocardial Infarction hx of NSTEMI in setting of sepsis July [address] segment elevation myocardial manage medically, occurring in the setting of acute sepsis secondary abdominal abscess following colon resection for colon cancer. Surgical History History of open reduction and internal fixation (ORIF) procedure right ankle--no hardware History of left shoulder replacement History of right shoulder replacement History of revision of total replacement of right hip joint History of total right hip replacement History of total left hip replacement History of colon resection 2017 @ [facility] [place] d/t cancer History of prostatectomy d/t cancer History of prostate biopsy malignant History of tooth extraction all teeth History of bilateral cataract extraction H/O colectomy S/P cataract surgery S/P hip replacement Family History Denies family history of Heart disease Social History Smoking Status: Unknown if ever smoked Second Hand Exposure: No; Preferred Language: Khmer Communication Ability: Effective 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 Supervisor Required: No Beliefs That Will Affect Care: None marital status: Current Living Situation: Spouse Feels Safe at Home: Yes Safety Concerns: Feels Safe At This Time Assistive Devices: Denture - Upper and Denture - Lower Allergies Allergies Allergy/AdvReac Type Severity Reaction Status Date / Time hydrocodone AdvReac Intermediate MAKES PT Verified 01/20/24 16:02 HALLUCINATE meperidine AdvReac Intermediate psych Verified 01/20/24 16:02 complications oxycodone AdvReac Intermediate MAKES PT Verified 01/20/24 16:02 HALLUCINATES Home Meds Home Medications Medication Instructions Recorded Confirmed aspirin 81 mg tablet,delayed 81 mg PO QAM 05/15/23 01/20/24 release atorvastatin 40 mg tablet 40 mg PO HS 05/15/23 01/20/24 biotin 5 mg tablet 5 mg PO QAM 05/15/23 01/20/24 citalopram 20 mg tablet 20 mg PO QAM 05/15/23 01/20/24 clopidogrel 75 mg tablet 75 mg PO QAM 05/15/23 01/20/24 donepezil 10 mg tablet 10 mg PO QPM 05/15/23 01/20/24 empagliflozin 25 mg tablet 25 mg PO QAM 05/15/23 01/20/24 isosorbide mononitrate 30 mg 30 mg PO QAM 05/15/23 01/20/24 tablet,extended release 24 hr loperamide 2 mg capsule 2 mg PO DIRECTED PRN Diarrhea 05/15/23 01/20/24 meclizine 25 mg tablet 25 mg PO DAILY PRN dizzyness 05/15/23 01/20/24 melatonin 10 mg tablet 10 mg PO HS 05/15/23 01/20/24 metformin 500 mg tablet,extended 500 mg PO BID 05/15/23 01/20/24 release 24 hr metoprolol succinate 50 mg 50 mg PO QAM 05/15/23 01/20/24 tablet,extended release 24 hr omega-3 fatty acids 1,000 mg 1,000 mg PO QAM 05/15/23 01/20/24 capsule semaglutide 7 mg tablet (Rybelsus) 7 mg PO QAM 05/15/23 01/20/24 acetaminophen 325 mg tablet 650 mg PO Q6H PRN PAIN/FEVER 01/20/24 01/20/24 (Tylenol) linagliptin 5 mg tablet (Tradjenta) 5 mg PO QAM 01/20/24 01/20/24 multivitamin with minerals 1 tab PO QAM 01/20/24 01/20/24 Previous Rx's Medication Instructions Recorded docusate sodium 100 mg capsule 100 mg PO BID #60 caps 08/18/23 Results & Data (ED) Vital Signs Vital Signs - 24 hr 01/20/24 13:59 01/20/24 13:59 01/20/24 14:32 Temperature 36.7 C Temperature Source Oral Pulse Rate 60 73 Pulse Rate from SpO2 Sensor Respiratory Rate 18 Blood Pressure 130/75 Blood Pressure Mean 93 Pulse Oximetry 98 Oxygen Delivery Method Room Air Room Air Sepsis Recent Fever Within 48 Hours No Sepsis New/Unexplained Change in Mental Status No Sepsis Action Taken by Nursing No Action Required 01/20/24 14:39 01/20/24 15:00 01/20/24 16:06 Temperature Temperature Source Pulse Rate 60 60 61 Pulse Rate from SpO2 Sensor 60 60 Respiratory Rate 16 16 22 Blood Pressure Blood Pressure Mean Pulse Oximetry 98 96 Oxygen Delivery Method Sepsis Recent Fever Within 48 Hours Sepsis New/Unexplained Change in Mental Status Sepsis Action Taken by Nursing Laboratory Data Attestation: I reviewed the patient's lab results. 01/20/24 15:02 01/20/24 15:02 Lab Results 01/20/24 01/20/24 Range/Units 15:02 15:08 WBC 7.27 (4.8-10.8) K/ul RBC 4.90 (4.70-6.10) M/uL Hgb 13.9 L (14.0-18.0) g/dl Hct 43.2 (42.0-52.0) % MCV 88.2 (80.0-100.0) fL MCH 28.4 (25.0-34.0) pg MCHC 32.2 (32.0-36.0) g/dL RDW Std Deviation 51.1 H (36.4-46.3) fL RDW Coeff of Mini 15.9 H (11.5-14.5) % Plt Count 186 (130-400) K/uL MPV 10.7 (9.4-12.4) fL Immature Gran % (Auto) 0.7 % Neut % (Auto) 62.8 % Lymph % (Auto) 22.7 % Lea % (Auto) 11.3 % Eos % (Auto) 2.1 % Baso % (Auto) 0.4 % Neut # (Auto) 4.57 (1.40-6.50) K/uL Lymph # (Auto) 1.65 (1.20-3.40) K/uL Lea # (Auto) 0.82 H (0.11-0.59) K/uL Eos # (Auto) 0.15 (0.00-0.50) K/uL Baso # (Auto) 0.03 (0.00-0.20) K/uL Immature Gran # (Auto) 0.05 (0.01-0.20) K/uL Sodium 142 (136-145) mmol/L Potassium 4.4 (3.5-5.1) mmol/L Chloride 107 (98-107) mmol/L Carbon Dioxide 24 (21-32) mmol/L Anion Gap 11 (3-11) BUN 34 H (6-23) mg/dl Creatinine 1.03 (0.6-1.4) mg/dl Est Cr Clr Drug Dosing 58.9 ml/min Est GFR ( Amer) 74.8 ml/min Est GFR (Non-Af Amer) 64.6 ml/min BUN/Creatinine Ratio 33.0 H (10-20) Glucose 113 H (70-99(Fasting)) mg/dl Calcium 9.5 (8.6-10.3) mg/dl Magnesium 1.9 (1.7-2.4) mg/dl Total Bilirubin 0.6 (0.2-1.0) mg/dl AST 17 (13-39) U/L ALT 13 (7-52) U/L Alkaline Phosphatase 75 (34-104) U/L Total Protein 7.2 (6.0-8.3) gm/dl Albumin 4.1 (3.4-5.0) gm/dl Globulin 3.1 (2.5-4.0) gm/dl Albumin/Globulin Ratio 1.3 (0.9-2) TSH 1.695 (0.300-4.500) uIu/ml Urine Color Dark Yellow Urine Appearance Clear (Clear) Urine pH 5.5 (4.5-7.5) Ur Specific [place] 1.044 H (1.000-1.030) Urine Protein Negative (Negative) Urine Glucose (UA) 3+ H (Negative) Urine Ketones Negative (Negative) Urine Blood Negative (Negative) Urine Nitrite Negative (Negative) Urine Bilirubin Negative (Negative) Urine Urobilinogen Negative (Negative) Ur Leukocyte Esterase Negative (Negative) SARS-CoV-2, RNA, NAAT NEGATIVE (NEGATIVE) Administered Medications Atorvastatin Calcium (Atorvastatin 40 Mg Tab) 40 mg PO HS [facility] Stop: 02/19/24 20:59 Last Admin: 01/20/24 20:35 Dose: 40 mg Documented By: KARLOS Docusate Sodium (Docusate Sodium 100 Mg Cap) 100 mg PO BID LELO Stop: 02/19/24 20:59 Last Admin: 01/20/24 20:36 Dose: 100 mg Documented By: KARLOS Donepezil HCl (Donepezil Hcl 10 Mg Tab) 10 mg PO QPM [facility]O Stop: 02/19/24 20:59 Last Admin: 01/20/24 20:35 Dose: 10 mg Documented By: KARLOS Insulin Aspart (Insulin Aspart Per Unit Charge) 0 units SC ACHS LELO Stop: 02/19/24 19:09 Last Admin: 01/20/24 20:28 Dose: Not Given Documented By: KARLOS Co-signed By: SLIME Admin: 01/20/24 20:28 Dose: Not Given Documented By: KARLOS Co-signed By: MARIA LUISA Melatonin (Melatonin 3 Mg Tab) 9 mg PO HS [facility] Stop: 02/19/24 20:59 Last Admin: 01/20/24 20:36 Dose: 9 mg Documented By: KARLOS Miscellaneous (Semaglutide Tablet - Order Awaiting Action) 1 each N/A QS LELO Stop: 02/20/24 00:00 Last Admin: 01/20/24 23:40 Dose: Not Given Documented By: KARLOS Discontinued Medications Sodium Chloride (Nss) 500 mls @ 999 mls/hr IV .Q31M LELO Stop: 01/20/24 15:15 Last Infusion: 01/20/24 19:13 Dose: Infused Documented By: Admin: 01/20/24 15:33 Dose: 999 mls/hr Documented By: ARS Imaging Data Radiologist's Impression: Chest X-Ray 01/20/24 14:43 XR chest 1V portable CLINICAL HISTORY: weakness COMPARISON STUDY: Chest CT and chest radiograph July 31, 2023. FINDINGS: Bilateral shoulder arthroplasties and left subclavian pacer are again noted. There is no pneumothorax or pleural effusion. Cardiomediastinal silhouette is stable. There is no evidence for pulmonary edema. No consolidation to suggest pneumonia. IMPRESSION: No acute cardiopulmonary findings. No change in appearance of the chest. ACT 112: Negative or not required by law. Electronically signed by: David Rivera M.D. 01/20/2024 3:02 PM Discharge Plan Visit Data Chief Complaint: Weakness ED Provider: Olu Almaraz Discharge Problem: Dementia, Ambulatory dysfunction Patient Disposition: Admitted As Inpatient Discharge Instructions Interventions: ED Discharge Assessment Last Done: 01/20/24 18:02 Discharge Problem: Dementia Qualifiers: Dementia type: unspecified type Dementia severity: unspecified severity D ementia behavioral or psychological symptom: unspecified whether behavioral, psychotic, or mood disturbance or anxiety Qualified Code(s): F03.90 - Unspecified dementia, unspecified severity, without behavioral disturbance, psychotic disturbance, mood disturbance, and anxiety
--- NOTE | 2024-01-20 15:04 | XRay Report ---
XR chest 1V portable CLINICAL HISTORY: weakness COMPARISON STUDY: Chest CT and chest radiograph July 31, 2023. FINDINGS: Bilateral shoulder arthroplasties and left subclavian pacer are again noted. There is no pn eumothorax or pleural effusion. Cardiomediastinal silhouette is stable. There is no evidence for pulm onary edema. No consolidation to suggest pneumonia. IMPRESSION: No acute cardiopulmonary findings. No change in appearance of the chest. ACT 112: Negative or not required by law. Electronically signed by: David Rivera M.D. 01/20/2024 3:02 PM
[2024-01-20 15:19] LABS: Appearance Urine Clear (Clear); Bilirubin Urine Negative (Negative); Blood Urine Negative (Negative); Color Urine Dark Yellow; Glucose Urine UA 3+ (Negative); Ketones Urine Negative (Negative); Leukocyte Esterase Urine Negative (Negative); Nitrite Urine Negative (Negative); Protein Urine Negative (Negative); Specific Gravity Urine 1.044 (1.000-1.030); Urobilinogen Urine Negative (Negative); pH Urine 5.5 (4.5-7.5)
[2024-01-20 15:27] LABS: Basophils # (auto) 0.03 K/uL (0.00-0.20); Basophils % (auto) 0.4 %; Eosinophils # (auto) 0.15 K/uL (0.00-0.50); Eosinophils % (auto) 2.1 %; Hematocrit (blood only) 43.2 % (42.0-52.0); Hemoglobin 13.9 g/dl (14.0-18.0); Immature Granulocytes # (auto) 0.05 K/uL (0.01-0.20); Immature Granulocytes % (auto) 0.7 %; Lymphocytes # (auto) 1.65 K/uL (1.20-3.40); Lymphocytes % (auto) 22.7 %; Mean Corpuscular Hemoglobin 28.4 pg (25.0-34.0); Mean Corpuscular Hgb Conc 32.2 g/dL (32.0-36.0); Mean Corpuscular Volume 88.2 fL (80.0-100.0); Mean Platelet Volume 10.7 fL (9.4-12.4); Monocytes # (auto) 0.82 K/uL (0.11-0.59); Monocytes % (auto) 11.3 %; Neutrophils # (auto) 4.57 K/uL (1.40-6.50); Neutrophils % (auto) 62.8 %; Platelet Count 186 K/uL (130-400); RDW Coefficient of Variation 15.9 % (11.5-14.5); RDW Standard Deviation 51.1 fL (36.4-46.3); White Blood Count 7.27 K/ul (4.8-10.8)
[2024-01-20] MEDS: SODIUM CHLORIDE 0.9% 500 ML IV SCH (15:33)
[2024-01-20 15:41] LABS: Albumin Globulin Ratio 1.3 (0.9-2); Albumin Level 4.1 gm/dl (3.4-5.0); Bilirubin,Total 0.6 mg/dl (0.2-1.0); Calcium 9.5 mg/dl (8.6-10.3); Creatinine Clr Calc Pharmacy 58.9 ml/min; Est GFR (African American) 74.8 ml/min; Est GFR (Non-African American) 64.6 ml/min; Globulin 3.1 gm/dl (2.5-4.0); Magnesium 1.9 mg/dl (1.7-2.4); Potassium 4.4 mmol/L (3.5-5.1); Total Protein 7.2 gm/dl (6.0-8.3)
[2024-01-20 15:55] LABS: Thyroid Stimulating Hormone 1.695 uIu/ml (0.300-4.500)
--- NOTE | 2024-01-20 16:12 | History & Physical Report ---
Date of Service January 20, 2024 Assessment & Plan (1) Ambulatory dysfunction: (2) Dementia: (3) Frequent falls: (4) CAD (coronary artery disease): (5) Hyperlipidemia: (6) Paroxysmal atrial fibrillation: (7) Hypertension: (8) DM (diabetes mellitus): (9) Colon cancer: (10) Prostate carcinoma: Plan: 88 yo M with PMhx significant for chronic diastolic heart failure (EF 60-65%, TTE 2022), CAD sp CABG, SSS status post PPM, PAF, valvular heart disease (mild /MR/TR), hypertension, hyperlipidemia, colon cancer status post surgery/incomplete chemotherapy, prostate cancer status post radiation, DM2 on oral medications, past history DVT, dementia, history of MRSA bacteremia who was placed at [facility] in [facility] after last hospital stay. This morning his took him out of the facility after he apparently cried/requested to be taken out of the personal-fci to her AGAINST MEDICAL ADVICE. Admit for placement as he was unable to safely be at home due to ambulatory dysfunction and dementia. H/O Dementia Ambulatory Dysfunction UA was ordered and was not suggestive of UTI Continue donepezil Consider palliative care consult - per last visit in Jul pt was recommended to be on hospice at [facility] for advanced dementia PT /OT consults for placement at another facility. [facility] will not take the patient back as signed him out AMA. CM to assist with dc planning reorientation as needed, May require 1:1, avoided sedating medications Paroxysmal AFib CAD S/P CABG SSS S/P PPM Chronic diastolic heart failure EF 60-65%, TTE 2022 No signs of exacerbation Valvular heart disease (mild /MR/TR) Continue home medications- metoprolol for rate control, diltiazem, imdur, asa, plavix Stable Hypertension Hyperlipidemia Continue home medications Colon cancer s/p surgery/incomplete chemotherapy Prostate cancer s/p radiation currently in remission DM II Last HbA1C: 8.6 in 2022, recheck with am labs ISS with accuchecks achs Home meds were held except continue jardiance for dm/heart failure Resume home po meds with pcp follow up for optimal control DVT ppx: teds, scds Lines: PIV x 1 FEN/GI: HH/DM diet, easy to chew CODE: DNR/DNI as per last admission in [place], will need to confirm with . I have called and left a message for her to call me back at 4:57 pm. Dispo: From home, likely to remain in the hospital x 2 days, CM to assist with discharge planning A total of 75 minutes were spent with greater than 50% of that time face to face with the patient, personally reviewing all current laboratories, imaging studies, past medication reconciliation, outpatient chart review, and discussion with specialists to collaborate care for the patient with attending. Please see attending documentation for corrections and/or additions. History of Present Illness Chief Complaint: Dementia, weakness Primary Care Provider: Victoria Saldana, DO This is an 88 yo M with PMhx significant for chronic diastolic heart failure (EF 60-65%, TTE 2022), CAD sp CABG, SSS status post PPM, PAF, valvular heart disease (mild /MR/TR), hypertension, hyperlipidemia, colon cancer status post surgery/incomplete chemotherapy, prostate cancer status post radiation, DM2 on oral medications, past history DVT, dementia, history of MRSA bacteremia who was placed at [facility] in [facility] after last hospital stay. This morning his took him out of the facility after he apparently cried/requested to be taken out of the personal-fci to her AGAINST MEDICAL ADVICE. on call pharmacy technician in the ER have contacted the facility who state that they are not willing to accept the patient back. Office of aging was also involved and their department stated that they were not going to getting involved in this case. I personally called the facility of [facility] in [place], received contact with a supervising nursing liaison, Karlie, who adamantly stated that their facility does not accept patients back after they have left [place], even in this patient's case who has significant dementia and even though he has been a resident of [facility] since Jul 2023. There was not another person available to speak with as she states she was the only one one available to take my call. Unfortunately the patient has only the options of going home to an unsafe environment, or be admitted to the hospital for placement again to dementia facility.. Pt at baseline requires two person assist and a belt to help steady him for walking per ER staff who spoke with the . No family is present at bedside during my evaluation. Patient is pleasantly confused, thinks that it is 1996, that he is in [facility], and cannot name the president but calls refers to him as " that cuckoo son of a b ". Pt follows basic commands. Denies any acute complaints. States that he is able to eat without any issues or complaints. Allergies Allergy/AdvReac Type Severity Reaction Status Date / Time hydrocodone AdvReac Intermediate MAKES PT Verified 01/20/24 16:02 HALLUCINATE meperidine AdvReac Intermediate psych Verified 01/20/24 16:02 complications oxycodone AdvReac Intermediate MAKES PT Verified 01/20/24 16:02 HALLUCINATES Home Medications Medication Instructions Recorded Confirmed Type aspirin 81 mg tablet,delayed 81 mg PO QAM 05/15/23 01/20/24 History release atorvastatin 40 mg tablet 40 mg PO HS 05/15/23 01/20/24 History biotin 5 mg tablet 5 mg PO QAM 05/15/23 01/20/24 History citalopram 20 mg tablet 20 mg PO QAM 05/15/23 01/20/24 History clopidogrel 75 mg tablet 75 mg PO QAM 05/15/23 01/20/24 History donepezil 10 mg tablet 10 mg PO QPM 05/15/23 01/20/24 History empagliflozin 25 mg tablet 25 mg PO QAM 05/15/23 01/20/24 History isosorbide mononitrate 30 mg 30 mg PO QAM 05/15/23 01/20/24 History tablet,extended release 24 hr loperamide 2 mg capsule 2 mg PO DIRECTED PRN Diarrhea 05/15/23 01/20/24 History meclizine 25 mg tablet 25 mg PO DAILY PRN dizzyness 05/15/23 01/20/24 History melatonin 10 mg tablet 10 mg PO HS 05/15/23 01/20/24 History metformin 500 mg tablet,extended 500 mg PO BID 05/15/23 01/20/24 History release 24 hr metoprolol succinate 50 mg 50 mg PO QAM 05/15/23 01/20/24 History tablet,extended release 24 hr omega-3 fatty acids 1,000 mg 1,000 mg PO QAM 05/15/23 01/20/24 History capsule semaglutide 7 mg tablet (Rybelsus) 7 mg PO QAM 05/15/23 01/20/24 History docusate sodium 100 mg capsule 100 mg PO BID #60 caps 08/18/23 01/20/24 Rx acetaminophen 325 mg tablet 650 mg PO Q6H PRN PAIN/FEVER 01/20/24 01/20/24 History (Tylenol) linagliptin 5 mg tablet (Tradjenta) 5 mg PO QAM 01/20/24 01/20/24 History multivitamin with minerals 1 tab PO QAM 01/20/24 01/20/24 History Past Med/Surg History Problem List (Updated 01/21/24 @ 02:01 by Olu Almaraz MD) Ambulatory dysfunction (Acute) Dementia (Acute) Osteomyelitis due to type 2 diabetes mellitus Diabetic toe ulcer Palliative care by specialist [facility] Discussion about advance care planning held with family member Dyspnea and respiratory abnormalities Dementia with behavioral disturbance Confusion Weakness generalized Abrasions of multiple sites (Acute) Dementia (Acute) Fall (Acute) Contusion of multiple sites (Acute) Bacteremia due to methicillin resistant Staphylococcus aureus AMS (altered mental status) (Acute) Cough (Acute) Elevated brain natriuretic peptide (BNP) level (Acute) Weakness (Acute) Fall (Acute) Encephalopathy Traumatic arthritis of right knee Traumatic arthritis of left knee Obesity Fall (Acute) Acute knee pain (Acute) Ambulatory dysfunction (Acute) Dementia (Acute) Acute dehydration (Acute) Frequent falls SSS (sick sinus syndrome) Pt admitted for elective ppm due to SSS. Underwent procedure without any complications monitored overnight and discharged home. He was restarted back on his toprol 25mg daily. 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) RBBB Sinus node dysfunction Paroxysmal atrial fibrillation NSTEMI (non-ST elevated myocardial infarction) DVT prophylaxis Diabetic neuropathy CAD (coronary artery disease) Hyperlipidemia Sleep apnea cpap Left-sided chest pain (Acute) Hyperglycemia (Acute) Hypertension (Acute) DM (diabetes mellitus) (Chronic) Hypercholesteremia (Chronic) DJD of shoulder (Acute) Osteoarthritis, shoulder (Acute) Deep vein thrombosis (Acute) Colon cancer (Acute 07/01/17) "Rectal bleeding and anemia Colonoscopy revealing a lesion at 70 cm biopsy positive for adenocarcinoma Colorectal surgical consultation scheduled" Medical History Diabetes mellitus, type 2 History of colon cancer 2017--sx/oral chemo History of prostate cancer 2013--sx/radiation History of deep vein thrombosis (DVT) of lower extremity right leg---no blood thinners Hearing deficit Depression Dementia Hypertension Myocardial Infarction hx of NSTEMI in setting of sepsis July [address] segment elevation myocardial manage medically, occurring in the setting of acute sepsis secondary abdominal abscess following colon resection for colon cancer. Surgical History History of open reduction and internal fixation (ORIF) procedure right ankle--no hardware History of left shoulder replacement History of right shoulder replacement History of revision of total replacement of right hip joint History of total right hip replacement History of total left hip replacement History of colon resection 2018 @ [facility] [place] d/t cancer History of prostatectomy d/t cancer History of prostate biopsy malignant History of tooth extraction all teeth History of bilateral cataract extraction H/O colectomy S/P cataract surgery S/P hip replacement Family History Denies family history of Heart disease Social History Smoking Status: Unknown if ever smoked Second Hand Exposure: No; Preferred Language: Spanish Communication Ability: Effective Video Recorder Mechanic Required: No Beliefs That Will Affect Care: None marital status: Current Living Situation: Spouse Feels Safe at Home: Yes Safety Concerns: Feels Safe At This Time Assistive Devices: Denture - Upper and Denture - Lower Review of Systems Review of Systems: Unobtainable due to cognitive status (Dementia, denies any acute pain or any complaints currently) Physical Exam Physical Exam: General: awake, alert, no apparent distress, elderly white male, BMI of 31 Head: Normocephalic, atraumatic ENT: PERRL, EOMI, no pharyngeal exudate, mucous membranes moist Chest: Clear to auscultation, on room air, no adventitious breath sounds Cardiac: Regular rate and rhythm, + systolic murmur, no JVD, normal peripheral pulses, good capillary refill Abdominal: NABS x 4 quadrants, soft, nondistended, nontender to palpation, no rebound or guarding Extremities: + multiple areas of abrasions/scratches over bilateral lower extremities, no peripheral edema or erythema, calfs nontender to palpation Psych: Normal mood and affect Neuro: AAO to self, not to time or place, strength intact bilaterally and rated 5/5, no motor deficits, speech is clear, no peripheral sensory deficits Results & Data Results & Data Vital Signs (Past 12 Hours) Vital Signs Temp Pulse Resp BP Pulse Ox O2 Del Method 01/20/24 14:32 73 01/20/24 13:59 Room Air 01/20/24 13:59 36.7 C 60 18 130/75 98 Room Air Laboratory Results 01/20/24 01/20/24 15:08 15:02 WBC 7.27 RBC 4.90 Hgb 13.9 L Hct 43.2 MCV 88.2 MCH 28.4 MCHC 32.2 RDW Std Deviation 51.1 H RDW Coeff of Mini 15.9 H Plt Count 186 MPV 10.7 Immature Gran % (Auto) 0.7 Neut % (Auto) 62.8 Lymph % (Auto) 22.7 Woods % (Auto) 11.3 Eos % (Auto) 2.1 Baso % (Auto) 0.4 Neut # (Auto) 4.57 Lymph # (Auto) 1.65 Woods # (Auto) 0.82 H Eos # (Auto) 0.15 Baso # (Auto) 0.03 Immature Gran # (Auto) 0.05 Sodium 142 Potassium 4.4 Chloride 107 Carbon Dioxide 24 Anion Gap 11 BUN 34 H Creatinine 1.03 Est Cr Clr Drug Dosing 58.9 Est GFR ( Amer) 74.8 Est GFR (Non-Af Amer) 64.6 BUN/Creatinine Ratio 33.0 H Glucose 113 H Calcium 9.5 Magnesium 1.9 Total Bilirubin 0.6 AST 17 ALT 13 Alkaline Phosphatase 75 Total Protein 7.2 Albumin 4.1 Globulin 3.1 Albumin/Globulin Ratio 1.3 TSH 1.695 Urine Color Dark Yellow Urine Appearance Clear Urine pH 5.5 Ur Specific [place] 1.044 H Urine Protein Negative Urine Glucose (UA) 3+ H Urine Ketones Negative Urine Blood Negative Urine Nitrite Negative Urine Bilirubin Negative Urine Urobilinogen Negative Ur Leukocyte Esterase Negative SARS-CoV-2, RNA, NAAT NEGATIVE Diagnostic Findings Chest X-Ray 01/20/24 14:43 XR chest 1V portable CLINICAL HISTORY: weakness COMPARISON STUDY: Chest CT and chest radiograph July 31, 2023. FINDINGS: Bilateral shoulder arthroplasties and left subclavian pacer are again noted. There is no pneumothorax or pleural effusion. Cardiomediastinal silhouette is stable. There is no evidence for pulmonary edema. No consolidation to suggest pneumonia. IMPRESSION: No acute cardiopulmonary findings. No change in appearance of the chest. ACT 112: Negative or not required by law. Electronically signed by: David Rivera M.D. 01/20/2024 3:02 PM ECG Additional Comments: Personally reviewed, ventricularly paced. No acute ischemic changes noted. Supervising Physician Co-Signing Physician Notes Attending addendum: The patient was seen and examined in emergency room He has been stable without any distress Has severe dementia Signed out AMA from the current facility and brought him back to ER likely for placement On examination No apparent distress at rest Hemodynamically stable Chest-clear to auscultate bilaterally Heart-S1-S2, regular Abdomen- benign Extremities-no edema OR NURSE MANAGER-alert and awake. Has significant dementia Moves all extremities equally His admission labs, medications noted Significant dementia with other stable medical condition will need to have placement Try to contact the current facility but they refused to take the patient back as he signed out AMA Agree with assessment and plan and take the full responsibility update as documented above by MARCO ANTONIO Sena Dr (2) Dementia Dementia behavioral disturbance: without behavioral disturbance Dementia type: unspecified type Qualified Code(s): F03.90 - Unspecified dementia without behavioral disturbance (7) Hypertension Hypertension type: unspecified Qualified Code(s): I10 - Essential (primary) hypertension
[2024-01-20] MEDS ORDERED: ONDANSETRON INJ 2 MG/ML 2 ML VIAL IV PRN (19:10)
[2024-01-20] MEDS ORDERED: DEXTROSE 50% 50 ML SYRINGE IV PRN (19:10)
[2024-01-20] MEDS ORDERED: GLUCOSE 40% GEL 15 GM TUBE PO PRN (19:10)
[2024-01-20] MEDS ORDERED: CARBOHYDRATES FOR HYPOGLYCEMIA PO PRN (19:10)
[2024-01-20] MEDS ORDERED: GLUCOSE 10 TAB/TUBE PO PRN (19:10)
[2024-01-20] MEDS ORDERED: GLUCAGON FOR INJ 1 MG VIAL SQ PRN (19:10)
[2024-01-20] MEDS: INSULIN ASPART PER UNIT CHARGE SC SCH (20:28)
[2024-01-20] MEDS: ATORVASTATIN 40 MG TAB PO SCH (20:35)
[2024-01-20] MEDS: DONEPEZIL HCL 10 MG TAB PO SCH (20:35)
[2024-01-20] MEDS: MELATONIN 3 MG TAB PO SCH (20:36)
[2024-01-20] MEDS: DOCUSATE SODIUM 100 MG CAP PO SCH (20:36)
--- NOTE | 2024-01-20 23:51 | Electrocardiogram Report ---
Test Reason : Blood Pressure : / mmHG Vent. Rate : 069 BPM Atrial Rate : 394 BPM P-R Int : 000 ms QRS Dur : 156 ms QT Int : 478 ms P-R-T Axes : 000 -70 079 degrees QTc Int : 512 ms Ventricular-paced rhythm with premature ventricular or aberrantly conducted complexes Abnormal ECG When compared with ECG of 31-JUL-2023 02:14, Vent. rate has increased BY 7 BPM Confirmed by Miguel Ramirez ([id number]) on 01/20/2024 11:50:31 PM Referred By: REFERRED SELF Confirmed By:Miguel Ramirez
[2024-01-21 06:57] LABS: Hematocrit (blood only) 38.8 % (42.0-52.0); Hemoglobin 12.4 g/dl (14.0-18.0); Mean Corpuscular Hemoglobin 27.8 pg (25.0-34.0); Mean Platelet Volume 10.3 fL (9.4-12.4); Platelet Count 164 K/uL (130-400); RDW Coefficient of Variation 15.5 % (11.5-14.5); RDW Standard Deviation 49.4 fL (36.4-46.3); Red Blood Count 4.46 M/uL (4.70-6.10); White Blood Count 6.21 K/ul (4.8-10.8)
[2024-01-21 07:15] LABS: Calcium 8.7 mg/dl (8.6-10.3); Creatinine Clr Calc Pharmacy 75.3 ml/min; Est GFR (African American) 92.9 ml/min; Est GFR (Non-African American) 80.2 ml/min; Potassium 3.8 mmol/L (3.5-5.1)
[2024-01-21 07:24] LABS: Estimated Average Glucose 137 mg/dl; Hemoglobin A1C 6.4 % (4.5-5.6)
[2024-01-21] MEDS: CLOPIDOGREL BISULFATE 75 MG TAB PO SCH (08:24)
[2024-01-21] MEDS: EMPAGLIFLOZIN 25 MG TAB PO SCH (08:24)
[2024-01-21] MEDS: CITALOPRAM 20 MG TAB PO SCH (08:24)
[2024-01-21] MEDS: ASPIRIN 81 MG ECTAB PO SCH (08:24)
[2024-01-21] MEDS: METOPROLOL SUCC 50MG EXT REL TAB PO SCH (08:25)
[2024-01-21] MEDS: ISOSORBIDE MONO EXTENDED REL 30 MG TABCR PO SCH (08:25)
[2024-01-21] MEDS: CEROVITE ADV FORMULA TAB PO SCH (08:25)
--- OUTSIDE RECORDS SUMMARY | 2024-01-21 09:20 | External Medical Summary | Summary of Care ---
Author Name Unknown Organization [facility] Address [address] [facility] [place] [address] Phone [phone] Care Team Providers Care Glassblower Name Role Phone TyrelVictoria willingham Primary Care Provider [phone] Encounter Details Date Type Department Care Team (Late st Contact Info) Description 01/11/2024 Population Health External Data Unspecified Department Allergies Active Allergy Reactions Criticality Noted Date Comments Meperidine Psych complications 05/27/2017 Confused Hydrocodone 10/28/2023 Oxycodone 10/28/2023 documented as of this encounter (statuses as of 01/12/2024) Medications Medication Sig Dispensed Refills Start Date End Date Status OMEGA-3 FISH OIL 1000 MG PO CAPS Take 1 Capsule by mouth in the morning. Active Aspirin 81 MG Tablet Take 1 Tablet by mouth in the morning. Active Multiple Vitamins-Minerals (MULTIVITAL [place]) TABS Take 1 Tablet by mouth daily. Active Blood Glucose Monitoring Suppl (ONETOUCH VERIO) w/Device KITIndications:DM type 2 nursing care encounter (HCC),Type 2 diabetes mellitus with hemoglobin A1c goal of less than 7.0% (HCC),DM type 2 with diabetic peripheral neuropathy (HCC) Use up to 4 times a day E11.9 1 Kit 07/04/2019 Active Glucose Blood (ONETOUCH VERIO) STRPIndications:DM type 2 nursing care encounter (HCC),Type 2 diabetes mellitus with hemoglobin A1c goal of less than 7.0% (HCC),DM type 2 with diabetic peripheral neuropathy (HCC) Use up to 4 times a day E11.9 300 Strip 3 07/18/2019 Active Misc. DevicesIndications :Type 2 diabetes mellitus with hemoglobin A1c goal of less than 7.0% ([facility]),History of amputation of lesser toe of left foot (HCC),DM type 2 with diabetic peripheral neuropathy ([facility]) Please custom fit/dispense one pair diabetic accommodative shoes with 3 pairs heat molded accommodative inserts DM with neuropathy 1 Each 06/11/2020 Active Loperamide HCl 2 MG Oral Tablet (Immodium (A-D)) Take 1 Tablet by mouth daily as needed for Diarrhea. Active Meclizine HCl 25 MG Oral Tablet (Antivert) Take by mouth 1 Tablet daily as needed for Dizziness. 90 Tablet 09/11/2021 Active Melatonin 10 MG Oral Tablet Take 1 Tablet by mouth at bedtime. 05/05/2022 Active OneTouch Delica Lancets 30GIndications:DM type 2 with diabetic peripheral neuropathy ([facility]) Use to test blood sugars once daily 100 Each 3 05/05/2022 Active Biotin 5 MG Oral Capsule Take 1 Capsule by mouth in the morning. 30 Capsule 05/14/2022 Active Empagliflozin 25 MG Oral TabletIndications: Type 2 diabetes mellitus with hemoglobin A1c goal of less than 8.0% ([facility]),DM type 2 with diabetic peripheral neuropathy ([facility]) Take 1 Tablet by mouth in the morning. (gets from plastic sheeting cutter). 10/09/2022 Active Metoprolol Succinate ER 50 MG Oral Tablet Extended Release 24 Hour (toPROL XL) TAKE ONE TABLET BY MOUTH EVERY MORNING 100 Tablet 3 12/23/2022 Active Gabapentin 100 MG Oral Capsule (Neurontin)Indicat ions:Axonal sensorimotor neuropathy,Essenti al tremor TAKE ONE CAPSULE BY MOUTH TWICE A DAY 180 Capsule 2 10/31/2022 Active metFORMIN HCl ER 500 MG Oral Tablet Extended Release 24 Hour (Glucophage XR) TAKE ONE TABLET BY MOUTH TWICE A DAY 200 Tablet 3 10/09/2022 Active Isosorbide Mononitrate ER 30 MG Oral Tablet Extended Release 24 Hour (Imdur)Indications :Paroxysmal atrial tachycardia (HCC) TAKE ONE TABLET BY MOUTH EVERY DAY 90 Tablet 3 02/10/2023 4 Active Clopidogrel Bisulfate 75 MG Oral Tablet (pLAVix)Indication s:Paroxysmal atrial tachycardia (HCC) TAKE ONE TABLET BY MOUTH EVERY DAY [...] needed for Other (with activity). 1 Each 03/24/2023 Active Semaglutide 7 MG Oral Tablet (Rybelsus) Take 7 mg by mouth daily first thing in the morning. 30 Tablet 06/01/2023 Active Atorvastatin Calcium 40 MG Oral Tablet (Lipitor) TAKE ONE TABLET BY MOUTH AT BEDTIME 100 Tablet 3 06/30/2023 Active Acetaminophen 325 MG Oral Tablet (Tylenol) Take 2 Tablets by mouth every 6 hours as needed for Fever >38C(100.5F) or Pain, Mild. Active Bacitracin 500 UNIT/GM External Ointment Apply topically to affected area daily. Apply to RIGHT LOWER LEG EVERY DAY SHIFT FOR OPEN AREAS CLEANSE OPEN AREAS WITH NSS APPLY BACITRACIN AND COVER WITH OPTIFOAM. Active Docusate Sodium 100 MG Oral Capsule (Colace) Take 1 Capsule by mouth in the morning and 1 Capsule before bedtime. Active metFORMIN HCl 500 MG Oral Tablet (Glucophage) Take 1 Tablet by mouth 2 times a day with morning and evening meals. Active Bisacodyl 10 MG Rectal Suppository (Dulcolax) Administer 1 Suppository into the rectum as needed for Constipation. Active Fleet Enema Rectal Enema Administer 1 Enema into the rectum as needed for Constipation. Active Magnesium Hydroxide 400 MG/5ML Oral Suspension (Milk of Magnesia) Take 30 mL by mouth daily as needed for Constipation. Active documented as of this encounter (statuses as of 01/12/2024) Active Problems Problem Noted Date Diagnosed Date Systolic congestive heart failure 07/28/2023 Last Assessment [...] Self - Management Plan Other/Additional Comments: contact [facility] for directions Exacerbation Plan Other/Additional Comments: [...] pain despite this dosing, they should call [facility]. Open wound of second toe of left foot 10/11/2021 Last Assessment & Plan: 86-year-old diabetic male with open wounds on the 2nd and 3rd left toe needing home health wound care to ensure that he has proper healing. There is some noted drainage from these wounds. Plan: I will place a home health referral for wound care to [facility] home health. My recommendations are to [...] home health referral for wound care to [facility] home health. 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 08/09/2019 Last Assessment & Plan: Reported d/t hammer toe Ischemic cardiomyopathy 05/05/2018 Coronary artery disease invo lving [place] coronary artery of [place] heart with angina pectoris 05/05/2018 Overview: July [...] as of this encounter (statuses as of 01/12/2024) Resolved Problems Problem Noted Date Diagnosed Date Resolved Date Stage 3 chronic kidney disease 07/28/2023 09/03/2023 Hypertensive heart disease w ith chronic diastolic [...] as of this encounter (statuses as of 01/12/2024) Immunizations Name Administration Dates Next Due COVID-19 mRNA, LNP-s, No Pre serve, 2-Dose Series ([employer]) 10/27/2020,10/06/2020 COVID-19, LNP-s, No Preserve , Ilan-sucrose, [...] Date Recorded PHQ Adult Total Score 0 11/26/2023 Hunger Vital Sign Answer Date Recorded Within the past 12 months, y ou worried that your food would run out before you got the money to buy more. Never true 11/26/19 24 Within the past 12 months, t he food you bought just didn't last and you didn't have money to get more. Never true 11/26/2023 Sex and Gender Information Value Date Recorded [...] No 08/04/2017 documented as of this encounter Plan of Treatment Health Maintenance Due Date Last Done Comments COVID-19 Vaccine ( season) 2023 01/23/2022, 01/23/2022, 10/27/2020, Additional history exists CKD PHOS USE SMARTSET 19024 04/08/202303/21, 03/14/2021, 08/10/2017, Additional history exists HbA1c 06/11/2023 12/09/2022, 09/18, 04/08/2022, Additional history exists Diabetic Foot Exam 08/11/2023 08/11/2022, 0 11/01/2021, 01/02/2021, Additional history exists Diabetic Eye Exam 10/03/2023 10/02/2022, , 04/29/2021, Additional history exists Albumin/Creatinine Ratio 10/10/2023 023, 12/26/2021, 03/14/2021, Additional history exists B-12 12/10/2023 12/09/2022, 04/0 12/2021, 09/14/2020, Additional history exists CKD HGB USE SMARTSET 20806 08/31/202408/31, 08/31/2023, 08/26/2023, Additional history exists Depression Monitoring 11/25/2024 11/26/2023 DTaP,Tdap,and Td Vaccines (2 - Td or Tdap) 06/03/2028 06/03/2018 RETIRED - COLONOSCOPY-EVERY 2 YRS AGES 18-100 Discontinued 08/02/2019, 07/29/2018, 07/29/2018, Additional history exists Zoster Vaccines Completed 07/25/2020, 05/11/2020 Influenza Vaccine (FLU shot) Completed 03/24/2023, 03/24/2023, 03/31/2022, Additional history exists Pneumococcal Vaccine: 65+ Years Completed 08/01/2023, 06/05/2023, 06/17/2018, Additional history exists GARDASIL-HPV IMMUNIZATION SERIES Aged Out No longer eligible based on patient's age to complete this topic Hepatitis B Aged Out No longer eligi ble based on patient's age to complete this [...] Documents on File Type Date Recorded Patient Cook Soup Expl anation POLST 08/11/2022 [place] OR [facility]-SUSTAINING TREATMENT [place] DEPT OF HEALTH Advance Directives and Living Will 06/30/2014 ADVANCE DIRECTIVE * Full Code (Latest Code Status on File) Date Activated Date Inactivated Comments 08/03/2017 11:04 PM 08/10/2017 6:40 PM Question Answer Comments Discussion of Advance Directives occurred with: Not Discussed Does the patient have a Living Will? No Does the patient have Health Care Power of Attor ivis? No * Full Code Date Activated Date Inactivated Comments 07/23/2017 7:40 PM 07/26/2017 5:13 PM Question Answer Comments Discussion of Advance Directives occurred with: Not Discussed Healthcare Agents on File Name Relationship Healthcare Agent Relationshi p Communication Carlene Behlaurent Spouse Health Care Power of Attorn ey Care Teams Glassblower Relationship Specialty Start Date End Date Victoria Saldana DO PCP - General Family Medicine 02/20/22 documented as of this encounter
--- OUTSIDE RECORDS SUMMARY | 2024-01-21 09:20 | External Medical Summary | Summary of Care ---
Author Name Unknown Organization [facility] Address [address] [facility] [place] [address] Phone [phone] Care Team Providers Care Health Science Instructor Name Role Phone TyrelVictoria willingham Primary Care Provider [phone] Encounter Details Date Type Department Care Team (Late st Contact Info) Description 12/08/2023 Population Health External Data Unspecified Department Allergies Active Allergy Reactions Criticality Noted Date Comments Meperidine Psych complications 05/27/2017 Confused Hydrocodone 10/28/2023 Oxycodone 10/28/2023 documented as of this encounter (statuses as of 12/09/2023) Medications Medication Sig Dispensed Refills Start Date End Date Status OMEGA-3 FISH OIL 1000 MG PO CAPS Take 1 Capsule by mouth in the morning. Active Aspirin 81 MG Tablet Take 1 Tablet by mouth in the morning. Active Multiple Vitamins-Minerals (MULTIVITAL [place]) TABS Take 1 Tablet by mouth daily. [...] goal of less than 7.0% ([facility]),History of amputation of lesser toe of left foot (HCC),DM type 2 with diabetic peripheral neuropathy ([facility]) Please custom fit/dispense one pair diabetic accommodative [...] 30GIndications:DM type 2 with diabetic peripheral neuropathy ([facility]) Use to test blood sugars once daily 100 Each 3 05/05/2022 Active Biotin 5 MG Oral Capsule Take 1 Capsule by mouth in the morning. 30 Capsule 05/14/2022 Active Empagliflozin 25 MG Oral TabletIndications: Type 2 diabetes mellitus with hemoglobin A1c goal of less than 8.0% ([facility]),DM type 2 with diabetic peripheral neuropathy ([facility]) Take 1 Tablet by mouth in the morning. (gets from top carrier). 10/09/2022 Active Metoprolol Succinate ER 50 MG [...] as of this encounter (statuses as of 12/09/2023) Active Problems Problem Noted Date Diagnosed Date [...] Self - Management Plan Other/Additional Comments: contact [facility] for directions Exacerbation Plan Other/Additional Comments: comfort [...] pain despite this dosing, they should call [facility]. Open wound of second toe of left foot 10/11/2021 Last Assessment & Plan: 86-year-old diabetic male with open wounds on the 2nd and 3rd left toe needing home health wound care to ensure that he has proper healing. There is some noted drainage from these wounds. Plan: I will place a home health referral for wound care to [facility] home health. My recommendations are to [...] home health referral for wound care to [facility] home health. 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 t 08/09/2019 Last Assessment & Plan: Reported d/t hammer toe Ischemic cardiomyopathy 05/05/2018 Coronary artery disease invo lving [place] coronary artery of [place] heart with angina pectoris 05/05/2018 Overview: July [...] as of this encounter (statuses as of 12/09/2023) Resolved Problems Problem Noted Date Diagnosed Date [...] as of this encounter (statuses as of 12/09/2023) Immunizations Name Administration Dates Next Due COVID-19 mRNA, LNP-s, No Pre serve, 2-Dose Series ([employer]) 10/27/2020,10/06/2020 COVID-19, LNP-s, No Preserve , Ilan-sucrose, Ages 12+ ([employer]) 01/23/2022 Pneumococcal Conjugate Vacc, 13 Valent (Prevnar) [...] Additional history exists CKD PHOS USE SMARTSET 46790 04/08/202303/21, 03/14/2021, 08/10/2017, Additional history exists HbA1c 06/11/2023 12/09/2022, 09/18, 04/08/2022, Additional history exists Diabetic Foot Exam 08/11/2023 08/11/2022, 0 11/01/2021, 01/02/2021, Additional history exists Diabetic Eye Exam 10/03/2023 10/02/2022, , 04/29/2021, Additional history exists Albumin/Creatinine Ratio 10/10/2023 023, 12/26/2021, 03/14/2021, Additional history exists B-12 12/10/2023 12/09/2022, 04/0 12/2021, 09/14/2020, Additional history exists CKD HGB USE SMARTSET 17797 08/31/202408/31, 08/31/2023, 08/26/2023, Additional history exists DTaP,Tdap,and Td Vaccines (2 - Td or [...] Documents on File Type Date Recorded Patient Director Pharmacy Services Expl anation POLST 08/11/2022 [place] OR [facility] FOR LIFE-SUSTAINING TREATMENT [place] DEPT OF HEALTH Advance Directives and Living [...] Care Power of Attorn ey Care Teams Health Science Instructor Relationship Specialty Start Date End Date Victoria Saldana DO [address] [facility] [place] [address] PCP - General Family Medicine 02/20/22 documented as of this encounter
--- OUTSIDE RECORDS SUMMARY | 2024-01-21 09:20 | External Medical Summary | Summary of Care ---
Author Name Unknown Organization [facility] Address [address] [facility] [place] [address] Phone [phone] Care Team Providers Care Panelboard Assembler Name Role Phone TyrelVictoria wlilingham Primary Care Provider [phone] Encounter Details Date Type Department Care Team (Late st Contact Info) Description 12/04/2023 Population Health External Data Unspecified Department Allergies [...] in the morning. Active Multiple Vitamins-Minerals (MULTIVITAL [place]) TABS Take 1 Tablet by mouth daily. [...] hemoglobin A1c goal of less than 7.0% ([facility]),History of amputation of lesser toe of left foot (HCC),DM type 2 with diabetic peripheral neuropathy ([facility]) Please custom fit/dispense one pair diabetic accommodative [...] 30GIndications:DM type 2 with diabetic peripheral neuropathy ([facility]) Use to test blood sugars once daily 100 Each 3 05/05/2022 Active Biotin 5 MG Oral Capsule Take 1 Capsule by mouth in the morning. 30 Capsule 05/14/2022 Active Empagliflozin 25 MG Oral TabletIndications: Type 2 diabetes mellitus with hemoglobin A1c goal of less than 8.0% ([facility]),DM type 2 with diabetic peripheral neuropathy ([facility]) Take 1 Tablet by mouth in the morning. (gets from supervisor phosphoric acid). 10/09/2022 Active Metoprolol Succinate ER 50 MG [...] Self - Management Plan Other/Additional Comments: contact [facility] for directions Exacerbation Plan Other/Additional [...] pain despite this dosing, they should call [facility]. Open wound of second toe of left foot 10/11/2021 Last Assessment & Plan: 86-year-old diabetic male with open wounds on the 2nd and 3rd left toe needing home health wound care to ensure that he has proper healing. There is some noted drainage from these wounds. Plan: I will place a home health referral for wound care to [facility] home health. My recommendations are [...] for wound care to [facility] home health. 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 t 08/09/2019 Last Assessment & Plan: Reported d/t hammer toe Ischemic cardiomyopathy 05/05/2018 Coronary artery disease invo lving [place] coronary artery of [place] heart with angina pectoris 05/05/2018 Overview: July [...] mRNA, LNP-s, No Pre serve, 2-Dose Series ([employer]) 10/27/2020,10/06/2020 COVID-19, LNP-s, No Preserve , Ilan-sucrose, Ages 12+ ([employer]) 01/23/2022 Pneumococcal Conjugate Vacc, 13 Valent (Prevnar) [...] Additional history exists CKD PHOS USE SMARTSET 93146 04/08/202303/21, 03/14/2021, 08/10/2017, Additional history exists HbA1c 06/11/2023 12/09/2022, 09/18, 04/08/2022, Additional history exists Diabetic Foot Exam 08/11/2023 08/11/2022, 0 11/01/2021, 01/02/2021, Additional history exists Diabetic Eye Exam 10/03/2023 10/02/2022, , 04/29/2021, Additional history exists Albumin/Creatinine Ratio 10/10/2023 023, 12/26/2021, 03/14/2021, Additional history exists B-12 12/10/2023 12/09/2022, 04/0 12/2021, 09/14/2020, Additional history exists CKD HGB USE SMARTSET 88810 08/31/202408/31, 08/31/2023, 08/26/2023, Additional history exists DTaP,Tdap,and [...] Documents on File Type Date Recorded Patient Molder Setter Expl anation POLST 08/11/[address] [place] [address] [facility] FOR [facility]-SUSTAINING TREATMENT [place] DEPT OF HEALTH [...] Care Power of Attorn ey Care Teams Panelboard Assembler Relationship Specialty Start Date End Date Victoria Saldana DO [address] [place] [facility] [address] PCP - General Family Medicine 02/20/22 documented as of this encounter
--- OUTSIDE RECORDS SUMMARY | 2024-01-21 09:20 | External Medical Summary | Summary of Care ---
Author Name Unknown Organization [facility] Address [address] [place] [address] Phone [phone] Care Team Providers Care Drug Safety Data Management Specialist Name Role Phone ShanaMiriamolman Worthington DO Primary Care Provider + [phone] Encounter Details Date Type Department Care Team (Late st Contact Info) Description 11/30/2023 Result Scan Unspecified Department Omid Lyons MD [address] [place] [address] <No scans attached> Allergies Active Allergy Reactions Criticality Noted Date Comments Meperidine Psych complications 05/27/2017 Confused Hydrocodone 10/28/2023 Oxycodone 10/28/2023 documented as of this encounter (statuses as of 11/30/2023) Medications Medication Sig Dispensed Refills Start Date End Date Status OMEGA-3 FISH OIL 1000 MG PO CAPS Take 1 Capsule by mouth in the morning. 0 Active Aspirin 81 MG Tablet Take 1 Tablet by mouth in the morning. 0 Active Multiple Vitamins-Minerals (MULTIVITAL TRIBAL) TABS Take 1 Tablet by mouth daily. 0 Active Blood Glucose Monitoring Suppl (ONETOUCH VERIO) w/Device KITIndications:DM type 2 nursing care encounter ([facility]),Type 2 diabetes mellitus with hemoglobin A1c goal of less than 7.0% ([facility]),DM type 2 with diabetic peripheral neuropathy ([facility]) Use up to 4 times a day E11.9 1 Kit 0 07/04/2019 Active Glucose Blood (ONETOUCH VERIO) STRPIndications:DM type 2 nursing care encounter ([facility]),Type 2 diabetes mellitus with hemoglobin A1c goal of less than 7.0% (HCC),DM type 2 with diabetic peripheral neuropathy (HCC) Use up to 4 times a day E11.9 300 Strip 3 07/18/2019 Active Misc. DevicesIndications :Type 2 diabetes mellitus with hemoglobin A1c goal of less than 7.0% ([facility]),History of amputation of lesser toe of left foot (HCC),DM type 2 with diabetic peripheral neuropathy (HCC) Please custom fit/dispense one pair diabetic accommodative shoes with 3 pairs heat molded accommodative inserts DM with neuropathy 1 Each 0 06/11/2020 Active Loperamide HCl 2 MG Oral Tablet (Immodium (A-D)) Take 1 Tablet by mouth daily as needed for Diarrhea. 0 Active Meclizine HCl 25 MG Oral [...] by mouth in the morning. (gets from product communications manager). 0 10/09/2022 Active Metoprolol Succinate ER [...] needed for Fever >38C(100.5F) or Pain, Mild. 0 Active Bacitracin 500 UNIT/GM External Ointment Apply topically to affected area daily. Apply to RIGHT LOWER LEG EVERY DAY SHIFT FOR OPEN AREAS CLEANSE OPEN AREAS WITH NSS APPLY BACITRACIN AND COVER WITH OPTIFOAM. 0 Active Docusate Sodium 100 MG Oral Capsule (Colace) Take 1 Capsule by mouth in the morning and 1 Capsule before bedtime. 0 Active metFORMIN HCl 500 MG Oral Tablet (Glucophage) Take 1 Tablet by mouth 2 times a day with morning and evening meals. 0 Active Bisacodyl 10 MG Rectal Suppository (Dulcolax) Administer 1 Suppository into the rectum as needed for Constipation. 0 Active Fleet Enema Rectal Enema Administer 1 Enema into the rectum as needed for Constipation. 0 Active Magnesium Hydroxide 400 MG/5ML Oral Suspension (Milk of Magnesia) Take 30 mL by mouth daily as needed for Constipation. 0 Active documented as of this encounter (statuses as of 11/30/2023) Active Problems Problem Noted Date Diagnosed Date [...] Self - Management Plan Other/Additional Comments: contact [facility] for directions Exacerbation Plan Other/Additional Comments: [...] pain despite this dosing, they should call [facility]. Open wound of second toe of left foot 10/11/2021 Last Assessment & Plan: 86-year-old diabetic male with open wounds on the 2nd and 3rd left toe needing home health wound care to ensure that he has proper healing. There is some noted drainage from these wounds. Plan: I will place a home health referral for wound care to [facility] home health. My recommendations are to [...] home health referral for wound care to [facility] home health. My recommendations are to [...] as requested by family Was previously with 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 08/09/2019 Last Assessment & Plan: Reported d/t hammer toe Ischemic cardiomyopathy 05/05/2018 Coronary artery disease invo lving [place] coronary artery of [place] heart with angina pectoris 05/05/2018 Overview: July [...] as of this encounter (statuses as of 11/30/2023) Resolved Problems Problem Noted Date Diagnosed Date [...] as of this encounter (statuses as of 11/30/2023) Immunizations Name Administration Dates Next Due COVID-19 [...] Additional history exists CKD PHOS USE SMARTSET 76482 04/08/202303/21, 03/14/2021, 08/10/2017, Additional history exists HbA1c 06/11/2023 12/09/2022, 09/18, 04/08/2022, Additional history exists Diabetic Foot Exam 08/11/2023 08/11/2022, 0 11/01/2021, 01/02/2021, Additional history exists Diabetic Eye Exam 10/03/2023 10/02/2022, , 04/29/2021, Additional history exists Albumin/Creatinine Ratio 10/10/2023 023, 12/26/2021, 03/14/2021, Additional history exists B-12 12/10/2023 12/09/2022, 04/0 12/2021, 09/14/2020, Additional history exists CKD HGB USE SMARTSET 42904 08/31/202408/31, 08/31/2023, 08/26/2023, Additional history exists DTaP,Tdap,and [...] Not on filedocumented as of this encounter Procedures Procedure Name Priority Date/Time Associated Diagnosis Comments CARDIOLOGY SCANNED RESULT 11/30/2023 documented in this encounter Results * CARDIOLOGY SCANNED RESULT (11/30/2023) 11/30/2023 Omid Lyons MD OTHER documented in this encounter Additional Health Concerns Infection Onset Date Last Indicated Resolved Time 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 No Does the patient have Health Care Power of Barytes Grinder? No Code Status History Code Status Date Activated Date Inactivated Comments Full Code 07/23/2017 7:40 PM 07/26/2017 5:13 PM Question Answer Comments Discussion of Advance Direct alyssa occurred with: Not Discussed Healthcare Agents on File Name Relationship Healthcare Agent Relationshi p Communication Carlene Behlaurent Spouse Health Care Power of Attorn ey Care Teams Drug Safety Data Management Specialist Relationship Specialty Start Date End Date Victoria Saldana DO [address] [place] [facility] [place] [address] PCP - General Family Medicine 02/20/22 documented as of this encounter
--- OUTSIDE RECORDS SUMMARY | 2024-01-21 09:21 | External Medical Summary | Summary of Care ---
Author Name Unknown Organization [facility] Address [address] [facility] [place] [address] Phone [phone] Care Team Providers Care Transit Specialist Name Role Phone Shana Victoria Worthington DO Primary Care Provider + [phone] Reason for Visit * Reason Onset Date Comments [facility]: Maintenance 10/14/2023 Encounter Details Date Type Department Care Team (Late st Contact Info) Description 10/14/2023 Telephone [facility], [facility] [address] [facility] [place] [address] [facility], Nurse [facility] [address] [facility] [place] [address] [facility]: Maintenance Allergies Active Allergy Reactions Criticality Noted Date Comments Meperidine Psych complications 05/27/2017 Confused documented as of this encounter (statuses as of 10/21/2023) Medications Medication Sig Dispensed Refills Start Date End Date Status OMEGA-3 FISH OIL 1000 MG PO CAPS one daily by mouth 0 A ctive Aspirin 81 MG Tablet Take 1 Tablet by mouth in the morning. 0 Active Multiple Vitamins-Minerals (MULTIVITAL [place]) TABS Take by mouth. 0 Active Blood Glucose Monitoring Suppl (ONETOUCH VERIO) w/Device KITIndications:DM type 2 nursing care encounter (HCC),Type 2 diabetes mellitus with hemoglobin A1c goal of less than 7.0% ([facility]),DM type 2 with diabetic peripheral neuropathy ([facility]) Use up to 4 times a [...] by mouth in the morning. (gets from vp biology). 0 10/09/2022 Active Metoprolol Succinate ER 50 [...] as of this encounter (statuses as of 10/21/2023) Active Problems Problem Noted Date Diagnosed Date [...] Self - Management Plan Other/Additional Comments: contact [facility] for directions Exacerbation Plan Other/Additional Comments: [...] pain despite this dosing, they should call [facility]. Open wound of second toe of left foot 10/11/2021 Last Assessment & Plan: 86-year-old diabetic male with open wounds on the 2nd and 3rd left toe needing home health wound care to ensure that he has proper healing. There is some noted drainage from these wounds. Plan: I will place a home health referral for wound care to [facility]. My recommendations are to cleanse the wounds [...] home health referral for wound care to [facility] health. My recommendations are to cleanse the [...] as requested by family Was previously with [facility] 06/2022-02/2023 Falls frequently 10/01/2021 Last Assessment & [...] Coronary artery disease invo lving [place] coronary artery of [place] heart without angina pectoris 08/09/2019 Last Assessment [...] Coronary artery disease invo lving [place] coronary artery of [place] heart with angina pectoris 05/05/2018 Overview: July [...] as of this encounter (statuses as of 10/21/2023) Resolved Problems Problem Noted Date Diagnosed Date [...] as of this encounter (statuses as of 10/21/2023) Immunizations Name Administration Dates Next Due COVID-19 mRNA, LNP-s, No Pre serve, 2-Dose Series ([employer]) 10/27/2020,10/06/2020 COVID-19, LNP-s, No Preserve , Ilan-sucrose, [...] encounter Miscellaneous Notes * Telephone Encounter - HoleVictoria francis DO - 10/21/2023 3:40 PM EDT I was unaware of pt discharge. She is not able to care of him at home. He needs f/u here in office [place] for discharge. Nursing, please alert office of aging as she is not able to care for him. He was previously found outside in the middle of night on the ground naked which led to admission. Not sure of circumstances of this discharge but she has previously removed him AMA. Please call previous facility and get information. * Telephone Encounter - Jeanie Manley RN - 10/14/2023 4:00 PM EDT Phone call from spouse looking for assistance as patient may be discharged from [facility]. reports needing assistance to provide her care If she chooses to bring him home. instructed to ask for a care team meeting to discuss the plan for the patient. 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 [facility] documented in this encounter Plan of Treatment Health Maintenance Due Date Last Done Comments COVID-19 Vaccine ( season) 2023 01/23/2022, 01/23/2022, 10/27/2020, Additional history exists CKD PHOS USE SMARTSET 91541 04/08/2023 09/2 , 03/14/2021, 08/10/2017, Additional history exists HbA1c 06/11/2023 12/09/2022, 09/18, 04/08/2022, Additional history exists Diabetic Foot Exam 08/11/2023 08/11/2022, 0 11/01/2021, 01/02/2021, Additional history exists Diabetic Eye Exam 10/03/2023 10/02/2022, , 04/29/2021, Additional history exists Albumin/Creatinine Ratio 10/10/2023 023, 12/26/2021, 03/14/2021, Additional history exists B-12 12/10/2023 12/09/2022, 04/0 12/2021, 09/14/2020, Additional history exists Depression Screening 03/24/2024 03/24/2023, 05/27/20 17 CKD HGB USE SMARTSET 52166 08/31/202408/31, 08/31/2023, 08/26/2023, Additional history exists DTaP,Tdap,and Td Vaccines (2 - Td or Tdap) 06/03/2028 06/03/2018 COLONOSCOPY-EVERY 2 YRS AGES 18-100 Discontinued 08/02/2019, [...] Documents on File Type Date Recorded Patient Audio Tape Librarian Expl anation POL 08/11/2022 [place] [facility] FOR LIFE-SUSTAINING TREATMENT [place] DEPT OF [...] the patient have Health Care Power of Stone Rigger? No Code Status History Code Status Date Activated Date Inactivated Comments Full Code 07/23/2017 7:40 PM 07/26/2017 5:13 PM Question Answer Comments Discussion of Advance Direct alyssa occurred with: Not Discussed Healthcare Agents on File Name Relationship Healthcare Agent Relationshi p Communication Carlene Behrer Spouse Health Care Power of Attorn ey Care Teams Transit Specialist Relationship Specialty Start Date End Date Victoria Saldana DO [address] [facility] [place] [address] PCP - General Family Medicine 02/20/22 documented as of this encounter
--- OUTSIDE RECORDS SUMMARY | 2024-01-21 09:21 | External Medical Summary | Summary of Care ---
Author Name Unknown Organization [facility] Address [address] [facility] [place] [address] Phone [phone] Care Team Providers Care Rehabilitation Program Coordinator Name Role Phone TyrelVictoria willingham Primary Care Provider + [phone] Encounter Details Date Type Department Care Team (Late st Contact Info) Description 10/15/2023 Population Health External Data Unspecified Department Allergies Active Allergy Reactions Criticality Noted Date Comments Meperidine Psych complications 05/27/2017 Confused documented as of this encounter (statuses as of 10/20/2023) Medications Medication Sig Dispensed Refills Start Date End Date Status OMEGA-3 FISH OIL 1000 MG PO CAPS one daily by mouth 0 A ctive Aspirin 81 MG Tablet Take 1 Tablet by mouth in the morning. 0 Active Multiple Vitamins-Minerals (MULTIVITAL [place]) TABS Take by mouth. 0 Active Blood [...] A1c goal of less than 7.0% ([facility]),History of amputation of lesser [...] by mouth in the morning. (gets from inspector eyeglass). 0 10/09/2022 Active Metoprolol Succinate ER 50 [...] as of this encounter (statuses as of 10/20/2023) Active Problems Problem Noted Date Diagnosed Date [...] Self - Management Plan Other/Additional Comments: contact [facility] for directions Exacerbation Plan Other/Additional Comments: [...] for wound care to [facility] home health. My recommendations are to [...] for wound care to [facility] home health. 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 t 08/09/2019 Last Assessment & Plan: Reported d/t hammer toe Ischemic cardiomyopathy 05/05/2018 Coronary artery disease invo lving [place] coronary artery of [place] heart with angina pectoris 05/05/2018 Overview: July [...] as of this encounter (statuses as of 10/20/2023) Resolved Problems Problem Noted Date Diagnosed Date [...] 07/06/2017 08/27/2017 Heme positive stool 06/23/2017 07/06/20 Anemia, blood loss 06/23/2017 8 Transfusion history [...] as of this encounter (statuses as of 10/20/2023) Immunizations Name Administration Dates Next Due COVID-19 [...] Additional history exists CKD PHOS USE SMARTSET 16258 04/08/202303/21, 03/14/2021, 08/10/2017, Additional history exists HbA1c 06/11/2023 12/09/2022, 09/18, 04/08/2022, Additional history exists Diabetic Foot Exam 08/11/2023 08/11/2022, 0 11/01/2021, 01/02/2021, Additional history exists Diabetic Eye Exam 10/03/2023 10/02/2022, , 04/29/2021, Additional history exists Albumin/Creatinine Ratio 10/10/2023 023, 12/26/2021, 03/14/2021, Additional history exists B-12 12/10/2023 12/09/2022, 04/0 12/2021, 09/14/2020, Additional history exists Depression Screening 03/24/2024 03/24/2023, 05/27/20 17 CKD HGB USE SMARTSET 18032 08/31/202408/31, 08/31/2023, 08/26/2023, Additional history exists DTaP,Tdap,and [...] Documents on File Type Date Recorded Patient Hospital Pharmacy Director Expl anation POLST 08/11/2022 [place] [facility] FOR [place]-SUSTAINING [place]RE[place] Advance Directives and Living Will 06/30/2014 ADVANCE DIRECTIVE Latest Code Status on File Code Status Date Activated Date Inactivated Comments Full Code 08/03/2017 11:04 PM 08/10/2017 6:40 PM Question Answer Comments Discussion of Advance Direct alyssa occurred with: Not Discussed Does the patient have a Living Will? No Does the patient have Health Care Power of Area Mechanic? No Code Status History Code Status Date Activated Date Inactivated Comments Full Code 07/23/2017 7:40 PM 07/26/2017 5:13 PM Question Answer Comments Discussion of Advance Direct alyssa occurred with: Not Discussed Healthcare Agents on File Name Relationship Healthcare Agent Relationshi p Communication Carlene Behrer Spouse Health Care Power of Attorn ey Care Teams Rehabilitation Program Coordinator Relationship Specialty Start Date End Date Victoria Saldana DO [address] [place] [address] PCP - General Family Medicine 02/20/22 documented as of this encounter
--- OUTSIDE RECORDS SUMMARY | 2024-01-21 09:21 | External Medical Summary | Summary of Care ---
Author Name Unknown Organization [facility] Address [address] [facility] [place] [address] Phone [phone] Care Team Providers Care Traffic Division Commanding Officer Name Role Phone TyrelVictoria willingham Primary Care Provider + [phone] Encounter Details Date Type Department Care Team (Late st Contact Info) Description 11/18/2023 Population Health External Data Unspecified Department Allergies Active Allergy Reactions Criticality Noted Date Comments Meperidine Psych complications 05/27/2017 Confused Hydrocodone 10/28/2023 Oxycodone 10/28/2023 documented as of this encounter (statuses as of 11/18/2023) Medications Medication Sig Dispensed Refills Start Date End Date Status OMEGA-3 FISH OIL 1000 MG PO CAPS Take 1 Capsule by mouth in the morning. 0 Active Aspirin 81 MG Tablet Take 1 Tablet by mouth in the morning. 0 Active Multiple Vitamins-Minerals (MULTIVITAL [place]) TABS Take 1 Tablet by mouth daily. [...] hemoglobin A1c goal of less than 7.0% ([facility]),History of amputation of lesser toe of left foot ([facility]),DM type 2 with diabetic peripheral neuropathy ([facility]) Please custom fit/dispense one pair diabetic accommodative [...] 30GIndications:DM type 2 with diabetic peripheral neuropathy ([facility]) Use to test blood sugars once daily 100 Each 3 05/05/2022 Active Biotin 5 MG Oral Capsule Take 1 Capsule by mouth in the morning. 30 Capsule 0 05/14/2022 Active Empagliflozin 25 MG Oral TabletIndications: Type 2 diabetes mellitus with hemoglobin A1c goal of less than 8.0% ([facility]),DM type 2 with diabetic peripheral neuropathy ([facility]) Take 1 Tablet by mouth in the morning. (gets from hides soaker). 0 10/09/2022 Active Metoprolol Succinate ER 50 [...] as of this encounter (statuses as of 11/18/2023) Active Problems Problem Noted Date Diagnosed Date [...] Self - Management Plan Other/Additional Comments: contact [facility] for directions Exacerbation Plan Other/Additional Comments: [...] pain despite this dosing, they should call [facility]. 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 t 08/09/2019 Last Assessment & Plan: Reported d/t hammer toe Ischemic cardiomyopathy 05/05/2018 Coronary artery disease invo lving [place] coronary artery of [place] heart with angina pectoris 05/05/2018 Overview: July [...] as of this encounter (statuses as of 11/18/2023) Resolved Problems Problem Noted Date Diagnosed Date [...] as of this encounter (statuses as of 11/18/2023) Immunizations Name Administration Dates Next Due COVID-19 mRNA, LNP-s, No Pre serve, 2-Dose Series ([employer]) 10/27/2020,10/06/2020 COVID-19, LNP-s, No Preserve , Ilan-sucrose, [...] Additional history exists CKD PHOS USE SMARTSET 52085 04/08/202303/21, 03/14/2021, 08/10/2017, Additional history exists HbA1c 06/11/2023 12/09/2022, 09/18, 04/08/2022, Additional history exists Diabetic Foot Exam 08/11/2023 08/11/2022, 0 11/01/2021, 01/02/2021, Additional history exists Diabetic Eye Exam 10/03/2023 10/02/2022, , 04/29/2021, Additional history exists Albumin/Creatinine Ratio 10/10/2023 023, 12/26/2021, 03/14/2021, Additional history exists B-12 12/10/2023 12/09/2022, 04/0 12/2021, 09/14/2020, Additional history exists CKD HGB USE SMARTSET 00919 08/31/202408/31, 08/31/2023, 08/26/2023, Additional history exists DTaP,Tdap,and [...] Documents on File Type Date Recorded Patient Vendor Management Specialist Expl anation POLST 08/11/2022 [place] OR [facility] FOR LIFE-SUSTAINING TREATMENT [place]PT OF HEALTH Advance Directives and Living Will 06/30/2014 ADVANCE DIRECTIVE Latest Code Status on File Code Status Date Activated Date Inactivated Comments Full Code 08/03/2017 11:04 PM 08/10/2017 6:40 PM Question Answer Comments Discussion of Advance Direct alyssa occurred with: Not Discussed Does the patient have a Living Will? No Does the patient have Health Care Power of Operations Superintendent? No Code Status History Code Status Date Activated Date Inactivated Comments Full Code 07/23/2017 7:40 PM 07/26/2017 5:13 PM Question Answer Comments Discussion of Advance Direct alyssa occurred with: Not Discussed Healthcare Agents on File Name Relationship Healthcare Agent Relationshi p Communication Carlene Behrer Spouse Health Care Power of Attorn ey Care Teams Traffic Division Commanding Officer Relationship Specialty Start Date End Date Victoria Saldana DO [address] [place] [address] PCP - General Family Medicine 02/20/22 documented as of this encounter
--- OUTSIDE RECORDS SUMMARY | 2024-01-21 09:21 | External Medical Summary | Summary of Care ---
Author Name Unknown Organization [facility] Address [address] [facility] [place] [address] Phone [phone] Care Team Providers Care Geology Faculty Member Name Role Phone Shana Victoria Worthington DO Primary Care Provider + [phone] Reason for Visit * Reason Onset Date Comments [facility]: Maintenance 10/14/2023 Encounter Details Date Type Department Care Team (Late st Contact Info) Description 10/14/2023 Telephone [facility], [facility] [address] [facility] [place] [address] [facility], Nurse [facility] [address] [facility] [address] [facility] [place] [address] [facility]: Maintenance Allergies Active Allergy Reactions Criticality Noted Date Comments Meperidine Psych complications 05/27/2017 Confused documented as of this encounter (statuses as of 10/14/2023) Medications Medication Sig Dispensed Refills Start Date End Date Status OMEGA-3 FISH OIL 1000 MG PO CAPS one daily by mouth 0 A ctive Aspirin 81 MG Tablet Take 1 Tablet by mouth in the morning. 0 Active Multiple Vitamins-Minerals (MULTIVITAL [place]) TABS Take by mouth. 0 Active Blood Glucose Monitoring Suppl (ONETOUCH VERIO) w/Device KITIndications:DM type 2 nursing care encounter (HCC),Type 2 diabetes mellitus with hemoglobin A1c goal of less than 7.0% ([facility]),DM type 2 with diabetic peripheral neuropathy ([facility]) Use up to 4 times a [...] by mouth in the morning. (gets from electronics technician). 0 10/09/2022 Active Metoprolol Succinate ER 50 [...] as of this encounter (statuses as of 10/14/2023) Active Problems Problem Noted Date Diagnosed Date [...] Self - Management Plan Other/Additional Comments: contact [facility] for directions Exacerbation Plan Other/Additional Comments: [...] pain despite this dosing, they should call [facility]. Open wound of second toe of left foot 10/11/2021 Last Assessment & Plan: 86-year-old diabetic male with open wounds on the 2nd and 3rd left toe needing home health wound care to ensure that he has proper healing. There is some noted drainage from these wounds. Plan: I will place a home health referral for wound care to [facility]. My recommendations are to cleanse the wounds [...] home health referral for wound care to [facility] health. 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 t 08/09/2019 Last Assessment & Plan: Reported d/t hammer toe Ischemic cardiomyopathy 05/05/2018 Coronary artery disease invo lving [place] coronary artery of [place] heart with angina pectoris 05/05/2018 Overview: July [...] as of this encounter (statuses as of 10/14/2023) Resolved Problems Problem Noted Date Diagnosed Date [...] as of this encounter (statuses as of 10/14/2023) Immunizations Name Administration Dates Next Due COVID-19 mRNA, LNP-s, No Pre serve, 2-Dose Series (Be my eyes) 10/27/2020,10/06/2020 COVID-19, LNP-s, No Preserve , Ilan-sucrose, [...] encounter Miscellaneous Notes * Telephone Encounter - Jeanie Manley RN - 10/14/2023 4:00 PM EDT Phone call from spouse looking for assistance as patient may be discharged from [facility]. reports needing assistance to provide her care If she chooses to bring him home. instructed to ask for a care team meeting to discuss the plan for the patient. EMI Sanchez Speaker [facility] documented in this encounter Plan of Treatment Health Maintenance Due Date Last Done Comments COVID-19 Vaccine ( season) 2023 01/23/2022, 01/23/2022, 10/27/2020, Additional history exists CKD PHOS USE SMARTSET 80727 04/08/202303/21, 03/14/2021, 08/10/2017, Additional history exists HbA1c 06/11/2023 12/09/2022, 09/18, 04/08/2022, Additional history exists Diabetic Foot Exam 08/11/2023 08/11/2022, 0 11/01/2021, 01/02/2021, Additional history exists Diabetic Eye Exam 10/03/2023 10/02/2022, , 04/29/2021, Additional history exists Albumin/Creatinine Ratio 10/10/2023 023, 12/26/2021, 03/14/2021, Additional history exists B-12 12/10/2023 12/09/2022, 04/0 12/2021, 09/14/2020, Additional history exists Depression Screening 03/24/2024 03/24/2023, 05/27/20 17 CKD HGB USE SMARTSET 65336 08/31/202408/31, 08/31/2023, 08/26/2023, Additional history exists DTaP,Tdap,and [...] Documents on File Type Date Recorded Patient Chargemaster Specialist Expl anation POLST 08/11/2022 [place] [facility]SUSTAINING T[facility] [place] DEPT OF HEALTH Advance Directives and Living Will 06/30/2014 ADVANCE DIRECTIVE Latest Code Status on File Code Status Date Activated Date Inactivated Comments Full Code 08/03/2017 11:04 PM 08/10/2017 6:40 PM Question Answer Comments Discussion of Advance Direct alyssa occurred with: Not Discussed Does the patient have a Living Will? No Does the patient have Health Care Power of Electronic Sales And Service Technician? No Code Status History Code Status Date Activated Date Inactivated Comments Full Code 07/23/2017 7:40 PM 07/26/2017 5:13 PM Question Answer Comments Discussion of Advance Direct alyssa occurred with: Not Discussed Healthcare Agents on File Name Relationship Healthcare Agent Relationshi p Communication Carlene Behrer Spouse Health Care Power of Attorn ey Care Teams Geology Faculty Member Relationship Specialty Start Date End Date Victoria Saldana DO [address] [place] [address] PCP - General Family Medicine 02/20/22 documented as of this encounter
--- OUTSIDE RECORDS SUMMARY | 2024-01-21 09:21 | External Medical Summary | Summary of Care ---
Author Name Unknown Organization [facility] Address [address] [place] [address] Phone [phone] Care Team Providers Care Rubber Tire Curer Name Role Phone Shana Victoria Worthington DO Primary Care Provider + [phone] Encounter Details Date Type Department Care Team (Late st Contact Info) Description 10/28/2023 Medication Management [facility]it [facility] [address] [place] [address] Pharmacist, Rohit Constantino [facility] [address] [place], [place] [id number] Referred for management of medication therapy* Allergies Active Allergy Reactions Criticality Noted Date Comments Meperidine Psych complications 05/27/2017 Confused Hydrocodone 10/28/2023 Oxycodone 10/28/2023 documented as of this encounter (statuses as of 10/29/2023) Medications Medication Sig Dispensed Refills Start Date End Date Status OMEGA-3 FISH OIL 1000 MG PO CAPS Take 1 Capsule by mouth in the morning. 0 Active Aspirin 81 MG Tablet Take 1 Tablet by mouth in the morning. 0 Active Multiple Vitamins-Minerals (MULTIVITAL [place]) TABS Take 1 Tablet by mouth daily. 0 Active Blood Glucose Monitoring Suppl (ONETOUCH VERIO) w/Device KITIndications:DM type 2 nursing care encounter ([facility]),Type 2 diabetes mellitus with hemoglobin A1c goal of less than 7.0% ([facility]),DM type 2 with diabetic peripheral neuropathy ([facility]) Use up to 4 times a [...] by mouth in the morning. (gets from game and fish protector). 0 10/09/2022 Active Metoprolol Succinate ER 50 [...] as of this encounter (statuses as of 10/29/2023) Active Problems Problem Noted Date Diagnosed Date [...] Self - Management Plan Other/Additional Comments: contact [facility] for directions Exacerbation Plan Other/Additional Comments: [...] pain despite this dosing, they should call [facility]. Open wound of second toe of left foot 10/11/2021 Last Assessment & Plan: 86-year-old diabetic male with open wounds on the 2nd and 3rd left toe needing home health wound care to ensure that he has proper healing. There is some noted drainage from these wounds. Plan: I will place a home health referral for wound care to [facility] home health. My recommendations are to [...] home health referral for wound care to [facility] home health. 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 Never true 03/24/20 Within the past 12 months, t he [...] as of this encounter Progress Notes * Mckenzie Winchester, [facility] - 10/29/2023 11:29 AM EDT Terrence Noyola is a 88 year old male. Objective: Review of patient's allergies indicates: Allergen Reactions Demerol Hcl [Meperidine] Psych complications Confused Hydrocodone Oxycodone Current Outpatient Medications - WARNING: List may be incomplete due to filtering Medication Sig Dispense Refill Bisacodyl 10 MG Rectal Suppository (Dulcolax) Administer 1 Suppository into the rectum as needed for Constipation. Fleet Enema Rectal Enema Administer 1 Enema into the rectum as needed for Constipation. Magnesium Hydroxide 400 MG/5ML Oral Suspension (Milk of Magnesia) Take 30 mL by mouth daily as needed for Constipation. Acetaminophen 325 MG Oral Tablet (Tylenol) Take 2 Tablets by mouth every 6 hours as needed for Fever >38C(100.5F) or Pain, Mild. Bacitracin 500 UNIT/GM External Ointment Apply topically to affected area daily. Apply to RIGHT LOWER LEG EVERY DAY SHIFT FOR OPEN AREAS CLEANSE OPEN AREAS WITH NSS APPLY BACITRACIN AND COVER WITH OPTIFOAM. Docusate Sodium 100 MG Oral Capsule (Colace) Take 1 Capsule by mouth in the morning and 1 Capsule before bedtime. metFORMIN HCl 500 MG Oral Tablet (Glucophage) Take 1 Tablet by mouth 2 times a day with morning andevening meals. Atorvastatin Calcium 40 MG Oral Tablet (Lipitor) TAKE ONE TABLET BY MOUTH AT BEDTIME 100 Tablet 3 Semaglutide 7 MG Oral Tablet (Rybelsus) Take 7 mg by mouth daily first thing in the morning. 30 Tablet 0 Donepezil HCl 10 MG Oral Tablet (Aricept) TAKE ONE TABLET BY MOUTH EVERY DAY WITH LARGEST MEAL OF THE DAY 90 Tablet 1 Citalopram Hydrobromide 20 MG Oral Tablet (CeleXA) TAKE ONE TABLET BY MOUTH EVERY DAY IN THE MORNING 90 Tablet 2 Clopidogrel Bisulfate 75 MG Oral Tablet (pLAVix) TAKE ONE TABLET BY MOUTH EVERY DAY 90 Tablet 3 Isosorbide Mononitrate ER 30 MG Oral Tablet Extended Release 24 Hour (Imdur) TAKE ONE TABLET BY MOUTH EVERY DAY 90 Tablet 3 Metoprolol Succinate ER 50 MG Oral Tablet Extended Release 24 Hour (toPROL XL) TAKE ONE TABLET BY MOUTH EVERY MORNING 100 Tablet 3 Gabapentin 100 MG Oral Capsule (Neurontin) TAKE ONE CAPSULE BY MOUTH TWICE A DAY 180 Capsule 2 Empagliflozin 25 MG Oral Tablet Take 1 Tablet by mouth in the morning. (gets from game and fish protector). Biotin 5 MG Oral Capsule Take 1 Capsule by mouth in the morning. 30 Capsule 0 Melatonin 10 MG Oral Tablet Take 1 Tablet by mouth at bedtime. Meclizine HCl 25 MG Oral Tablet (Antivert) Take by mouth 1 Tablet daily as needed for Dizziness. 90Tablet 0 Loperamide HCl 2 MG Oral Tablet (Immodium (A-D)) Take 1 Tablet by mouth daily as needed for Diarrhea. Multiple Vitamins-Minerals (MULTIVITAL [place]) TABS Take 1 Tablet by mouth daily. Aspirin 81 MG Tablet Take 1 Tablet by mouth in the morning. OMEGA-3 FISH OIL 1000 MG PO CAPS Take 1 Capsule by mouth in the morning. oxygen IN GAS Administer 2 L/min(Oxygen) into nostril as needed for Other (with activity). 1 Each 0 metFORMIN HCl ER 500 MG Oral Tablet Extended Release 24 Hour (Glucophage XR) TAKE ONE TABLET BY MOUTH TWICE A DAY 200 Tablet 3 OneTouch Delica Lancets 30G Use to test blood sugars once daily 100 Each 3 Misc. Devices Please custom fit/dispense one pair diabetic accommodative shoes with 3 pairs heat molded accommodative inserts DM with neuropathy 1 Each 0 Glucose Blood (ONETOUCH VERIO) STRP Use up to 4 times a day E11.9 300 Strip 3 Blood Glucose Monitoring Suppl (Pinstant Karma) w/Device KIT Use up to 4 times a day E11.9 1 Kit 0 Immunization History Administered Date(s) Administered COVID-19 mRNA, LNP-s, No Preserve, 2-Dose Series (Pfizer) 10/06/2020, 10/27/2020 COVID-19, LNP-s, No Preserve, Ilan-sucrose, Ages 12+ (Pfizer) 01/23/2022 Pneumococcal Conjugate Vacc, 13 Valent (Prevnar) 01/29/2016, 05/27/2017 Pneumococcal Polysaccharide PPV23 (Pneumovax) 06/17/2018 Season Influenza, Quad, PF, Adjuvanted, 65+ Yrs, IM (FLUAD) 05/11/2020 Seasonal Influenza, PF, 6 M & above, IM , (FluLaval or Fluzone) 04/13/2018, 04/11/2019, 05/20/2020 Seasonal Influenza, Quadrivalent Hd (Fluzone Hd) 05/04/2021, 03/31/2022, 03/24/2023 Seasonal Influenza, Split, IIV3, With Preserve, Inj 05/03/2016, 03/28/2017 TDAP (age 10 and older)(Boostrix) 06/03/2018 Zoster Vaccine Recombinant (Shingrix) 05/11/2020, 07/25/2020 TMR Interventions Incomplete Medication Therapy Recommendations No medication therapy recommendations to display Completed Medication Therapy Recommendations No medication therapy recommendations to display Assessment & Plan Indication, effectiveness, safety and convenience of his medications were reviewed today. The patient's medical conditions were assessed, evaluated, and deemed meeting goals of drug therapy, with thefollowing exceptions. Additional Notes: Pt in LTC Summary Time Spent: 16-30 min Supervising pharmacist who provided the service: Mckenzie Winchester PharmD. Takeaway Information Who was the recipient of the CMR service: other authorized individual Language Template for the Patient Takeaway: Lao I attest that I have reviewed and updated the patient's conditions, allergies, and medications to the best of my ability. Patient provided medication list gathered by: Edilia Oro pharmacy technician program director Mckenzie Winchester RPh 10/29/2023, 11:29 AM documented in this encounter Miscellaneous Notes * MTM To-Do-List - Edilia Oro electrotyper helper - 10/29/2023 11:26 AM EDT Images from the original note were not included. What we talked about: What I should do: The importance of taking your medication as prescribed Your medicine works best when taken as prescribed. It can be hard to remember to take daily medications. Consider making it a part of your daily routine. Pair taking your medication with something you do every day, like brushing your teeth or eating a meal. Consider setting daily alarms to help remind yourself when it is time to take your medicine. Using a pill box can also help you organize your medicines. Pill boxes allow you to fill each day slot with your daily medicine and help you track when your next dose is due. * MT Personal Medication List - Edilia Oro PHARM Tech - 10/29/2023 11:16 AM EDT Medication How I take it Why I use it Prescriber Acetaminophen 325 MG Oral Tablet (Tylenol) Take 2 Tablets by mouth every 6 hours as needed. Pain Beto Young MD Aspirin 81 MG Tablet Take 1 Tablet by mouth in the morning. Heart health Beto Young MD Atorvastatin Calcium 40 MG Oral Tablet (Lipitor) TAKE ONE TABLET BY MOUTH AT BEDTIME Cholesterol Victoria Saldana, DO Bacitracin 500 UNIT/GM External Ointment Apply a thin layer topically to affected area daily. Skin Beto Young MD Biotin 5 MG Oral Capsule Take 1 Capsule by mouth in the morning. General health LULY Lei Bisacodyl 10 MG Rectal Suppository (Dulcolax) Administer 1 Suppository into the rectum as needed for Constipation. Constipation Beto Young MD Citalopram Hydrobromide 20 MG Oral Tablet (CeleXA) TAKE ONE TABLET BY MOUTH EVERY DAY IN THE MORNING Mood Victoria Saldana, DO Clopidogrel Bisulfate 75 MG Oral Tablet (pLAVix) TAKE ONE TABLET BY MOUTH EVERY DAY Blood clot prevention Vivienne Villalobos, DO Docusate Sodium 100 MG Oral Capsule (Colace) Take 1 Capsule by mouth in the morning and 1 Capsule before bedtime. Constipation Beto Young MD Donepezil HCl 10 MG Oral Tablet (Aricept) TAKE ONE TABLET BY MOUTH EVERY DAY WITH LARGEST MEAL OF THE DAY Memory Victoria Saldana, DO Empagliflozin 25 MG Oral Tablet Take 1 Tablet by mouth in the morning. (gets from game and fish protector). Diabetes Beto Young MD Fleet Enema Rectal Enema Administer 1 Enema into the rectum as needed for Constipation. Constipation Beto Young MD Gabapentin 100 MG Oral Capsule (Neurontin) TAKE ONE CAPSULE BY MOUTH TWICE A DAY Nerve pain Victoria Sanchez, DO Isosorbide Mononitrate ER 30 MG Oral Tablet Extended Release 24 Hour (Imdur) TAKE ONE TABLET BY MOUTH EVERY DAY Heart Vivienne Villalobos, DO Loperamide HCl 2 MG Oral Tablet (Immodium (A-D)) Take 1 Tablet by mouth daily as needed for Diarrhea. Diarrhea Beto Young MD Magnesium Hydroxide 400 MG/5ML Oral Suspension (Milk of Magnesia) Take 30 mL by mouth daily as needed for Constipation. Constipation Beto Young MD Meclizine HCl 25 MG Oral Tablet (Antivert) Take by mouth 1 Tablet daily as needed. Dizziness Dalia Mayorga PA-C Melatonin 10 MG Oral Tablet Take 1 Tablet by mouth at bedtime. Sleep Beto Young MD metFORMIN HCl 500 MG Oral Tablet (Glucophage) Take 1 Tablet by mouth 2 times a day with morning andevening meals. Diabetes Beto Young MD Metoprolol Succinate ER 50 MG Oral Tablet Extended Release 24 Hour (toPROL XL) TAKE ONE TABLET BY MOUTH EVERY MORNING Heart Victoria Saldana, Multiple Vitamins-Minerals (MULTIVITAL [place]) TABS Take 1 Tablet by mouth daily. General health Beto Young MD OMEGA-3 FISH OIL 1000 MG PO CAPS Take 1 Capsule by mouth in the morning. General health Beto Young MD Semaglutide 7 MG Oral Tablet (Rybelsus) Take 7 mg by mouth daily first thing in the morning. Diabetes Victoria Saldana DO documented in this encounter Plan of Treatment Health Maintenance Due Date Last Done Comments COVID-19 Vaccine ( season) 2023 01/23/2022, 01/23/2022, 10/27/2020, Additional history exists CKD PHOS USE SMARTSET 95086 04/08/2023 09, 03/14/2021, 08/10/2017, Additional history exists HbA1c 06/11/2023 12/09/2022, 09/18, 04/08/2022, Additional history exists Diabetic Foot Exam 08/11/2023 08/11/2022, 0 11/01/2021, 01/02/2021, Additional history exists Diabetic Eye Exam 10/03/2023 10/02/2022, , 04/29/2021, Additional history exists Albumin/Creatinine Ratio 10/10/2023 023, 12/26/2021, 03/14/2021, Additional history exists B-12 12/10/2023 12/09/2022, 04/0 12/2021, 09/14/2020, Additional history exists CKD HGB USE SMARTSET 84532 08/31/202408/31, 08/31/2023, 08/26/2023, Additional history exists DTaP,Tdap,and [...] as of this encounter Visit Diagnoses Diagnosis Referred for management of medication therapy- Primary Encounter for long-term (current) use of other medications documented in this encounter Additional Health Concerns Infection Onset Date Last Indicated Resolved Time 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 No Does the patient have Health Care Power of Hand Shaker? No Code Status History Code Status Date Activated Date Inactivated Comments Full Code 07/23/2017 7:40 PM 07/26/2017 5:13 PM Question Answer Comments Discussion of Advance Direct alyssa occurred with: Not Discussed Healthcare Agents on File Name Relationship Healthcare Agent Relationshi p Communication Carlene Behrer Spouse Health Care Power of Attorn ey Care Teams Rubber Tire Curer Relationship Specialty Start Date End Date Victoria Saldana DO [address] [place] [address] PCP - General Family Medicine 02/20/22 documented as of this encounter
--- OUTSIDE RECORDS SUMMARY | 2024-01-21 09:21 | External Medical Summary | Summary of Care ---
Author Name Unknown Organization [facility] Address [address] [place] [address] Phone [phone] Care Team Providers Care Technical Instructor Name Role Phone Shana Victoria Worthington DO Primary Care Provider + [phone] Encounter Details Date Type Department Care Team (Late st Contact Info) Description 10/28/2023 Medication Management Rohit Constantino [facility] [address] [place] [address] Pharmacist, Rohit Constantino [facility] [address] [place], [place] [id number] Referred for management of medication therapy* Allergies Active Allergy Reactions Criticality Noted Date Comments Meperidine Psych complications 05/27/2017 Confused Hydrocodone 10/28/2023 Oxycodone 10/28/2023 documented as of this encounter (statuses as of 11/06/2023) Medications Medication Sig Dispensed Refills Start Date End Date Status OMEGA-3 FISH OIL 1000 MG PO CAPS Take 1 Capsule by mouth in the morning. 0 Active Aspirin 81 MG Tablet Take 1 Tablet by mouth in the morning. 0 Active Multiple Vitamins-Minerals (MULTIVITAL [place]) TABS Take 1 Tablet by mouth daily. 0 Active Blood Glucose Monitoring Suppl (ONETOUCH VERIO) w/Device KITIndications:DM type 2 nursing care encounter ([facility]),Type 2 diabetes mellitus with hemoglobin A1c goal of less than 7.0% ([facility]),DM type 2 with diabetic peripheral neuropathy ([facility]) Use up to 4 times a day [...] by mouth in the morning. (gets from development scientist). 0 10/09/2022 Active Metoprolol Succinate ER 50 [...] as of this encounter (statuses as of 11/06/2023) Active Problems Problem Noted Date Diagnosed Date [...] Self - Management Plan Other/Additional Comments: contact [facility] for directions Exacerbation Plan Other/Additional Comments: [...] pain despite this dosing, they should call [facility]. 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 - 10/29/2023 11:29 AM EDT Terrence Noyola [...] by mouth in the morning. (gets from development scientist). Biotin 5 MG Oral Capsule Take 1 [...] as needed for Diarrhea. Multiple Vitamins-Minerals (MULTIVITAL [place]) TABS Take 1 Tablet by mouth daily. [...] with neuropathy 1 Each 0 Glucose Blood (Reframe ItTOUCH VERIO) STRP Use up to 4 times a day E11.9 300 Strip 3 Blood Glucose Monitoring Suppl ([employer]) w/Device KIT Use up to 4 times [...] pharmacist who provided the service: Mckenzie Winchester PharmMarlen. Takeaway Information Who was the recipient of the CMR service: other authorized individual Language Template for the Patient Takeaway: Ghanaian I attest that I have reviewed and updated the patient's conditions, allergies, and medications to the best of my ability. Patient provided medication list gathered by: Edilia Oro pharmacy technologist Mckenzie Winchester RPh 10/29/2023, 11:29 AM documented in this encounter Miscellaneous Notes * [facility] To-Do-List - Edilia Oro PHARM Tech - 10/29/2023 11:26 AM EDT Images from [...] when your next dose is due. * [facility] Personal Medication List - Edilia Oro PHARM [...] MOUTH EVERY DAY Blood clot prevention Vivienne Villalobos DO Docusate Sodium 100 MG Oral Capsule (Colace) Take 1 Capsule by mouth in the morning and 1 Capsule before bedtime. Constipation Beto Young MD Donepezil HCl 10 MG Oral Tablet (Aricept) TAKE ONE TABLET BY MOUTH EVERY DAY WITH LARGEST MEAL OF THE DAY Memory Victoria Saldana DO Empagliflozin 25 MG Oral Tablet Take 1 Tablet by mouth in the morning. (gets from development scientist). Diabetes Beto Young MD Fleet Enema Rectal Enema Administer 1 Enema into the rectum as needed for Constipation. Constipation Beto Young MD Gabapentin 100 MG Oral Capsule (Neurontin) TAKE ONE CAPSULE BY MOUTH TWICE A DAY Nerve pain Victoria Sanchez DO Isosorbide Mononitrate ER 30 MG Oral Tablet Extended Release 24 Hour (Imdur) TAKE ONE TABLET BY MOUTH EVERY DAY Heart Vivienne Villalobos DO Loperamide HCl 2 MG Oral Tablet [...] TABLET BY MOUTH EVERY MORNING Heart Victoria Saldana DO Multiple Vitamins-Minerals (MULTIVITAL [place]) TABS Take 1 Tablet by mouth daily. [...] Additional history exists CKD PHOS USE SMARTSET 96066 04/08/2023 092 , 03/14/2021, 08/10/2017, Additional history exists HbA1c 06/11/2023 12/09/2022, 2 09/2022, 04/08/2022, Additional history exists Diabetic Foot Exam 08/11/2023 08/11/2022, 0 11/01/2021, 01/02/2021, Additional history exists Diabetic Eye Exam 10/03/2023 10/02/2022, , 04/29/2021, Additional history exists Albumin/Creatinine Ratio 10/10/2023 023, 12/26/2021, 03/14/2021, Additional history exists B-12 12/10/2023 12/09/2022, 04/0 12/2021, 09/14/2020, Additional history exists CKD HGB USE SMARTSET 65162 08/31/202408/31, 08/31/2023, 08/26/2023, Additional history exists DTaP,Tdap,and [...] Documents on File Type Date Recorded 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 No Does the patient have Health Care Power of Ambulatory Services Representative? No Code Status History Code Status Date Activated Date Inactivated Comments Full Code 07/23/2017 7:40 PM 07/26/2017 5:13 PM Question Answer Comments Discussion of Advance Direct alyssa occurred with: Not Discussed Healthcare Agents on File Name Relationship Healthcare Agent Relationshi p Communication Carlene Behrer Spouse Health Care Power of Attorn ey Care Teams Technical Instructor Relationship Specialty Start Date End Date Victoria Saldana DO [address] [place] [address] PCP - General Family Medicine 02/20/22 documented as of this encounter
--- OUTSIDE RECORDS SUMMARY | 2024-01-21 09:21 | External Medical Summary | Summary of Care ---
Author Name Unknown Organization [facility] Address [address] [place] [address] Phone [phone] Care Team Providers Care Cable Tower Operator Name Role Phone Victoria Saldana DO Primary Care Provider Reason for Visit * Reason Onset Date Comments Medication Refill 10/05/2023 Encounter Details Date Type Department Care Team (Late st Contact Info) Description 10/05/2023 Refill [place] [address] [place] [address] Victoria Saldana DO [address] [place] [address] Type 2 diabetes mellitus with hemoglobin A1c goal of less than 7.0% ([facility]); History of amputation of lesser toe of left foot ([facility]); DM type 2 with diabetic peripheral neuropathy ([facility]) Allergies Active Allergy Reactions Criticality Noted Date Comments Meperidine Psych complications 05/27/2017 Confused documented as of this encounter (statuses as of 10/07/2023) Medications Medication Sig Dispensed Refills Start Date [...] A1c goal of less than 7.0% ([facility]),DM type 2 with diabetic peripheral neuropathy (HCC) [...] A1c goal of less than 7.0% ([facility]),History of amputation of lesser toe of [...] type 2 with diabetic peripheral neuropathy ([facility]) Use to test blood sugars once daily 100 Each 3 05/05/2022 Active Biotin 5 MG Oral Capsule Take 1 Capsule by mouth in the morning. 30 Capsule 0 05/14/2022 Active Empagliflozin 25 MG Oral TabletIndications: Type 2 diabetes mellitus with hemoglobin A1c goal of less than 8.0% ([facility]),DM type 2 with diabetic peripheral neuropathy (HCC) Take 1 Tablet by mouth in the morning. (gets from continuous improvement consultant). 0 10/09/2022 Active Metoprolol Succinate ER 50 [...] as of this encounter (statuses as of 10/07/2023) Active Problems Problem Noted Date Diagnosed Date [...] Self - Management Plan Other/Additional Comments: contact [facility] for directions Exacerbation Plan Other/Additional Comments: [...] pain despite this dosing, they should call [facility]. Open wound of second toe of left foot 10/11/2021 Last Assessment & Plan: 86-year-old diabetic male with open wounds on the 2nd and 3rd left toe needing home health wound care to ensure that he has proper healing. There is some noted drainage from these wounds. Plan: I will place a home health referral for wound care to [facility]. 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 08/09/2019 Last Assessment & Plan: Reported d/t hammer toe Ischemic cardiomyopathy 05/05/2018 Coronary artery disease invo lving [place] coronary artery of [place] heart with angina pectoris 05/05/2018 Overview: July [...] as of this encounter (statuses as of 10/07/2023) Resolved Problems Problem Noted Date Diagnosed Date [...] as of this encounter (statuses as of 10/07/2023) Immunizations Name Administration Dates Next Due COVID-19 [...] encounter Miscellaneous Notes * Telephone Encounter - Carmel Hernandez LPN - 10/06/2023 2:21 PM EDT Called spouse left message to return call. Thank you * Telephone Encounter - Victoria Saldana DO - 10/06/2023 1:53 PM EDTPending Prescriptions: Disp Refills Misc. Devices 1 Each 0 Sig: Please custom fit/dispense one pair diabetic accommodative shoes with 3 pairs heat molded accommodative inserts DM with neuropathy * Telephone Encounter - Victoria Saldana DO - 10/06/2023 1:53 PM EDT To my knowledge pt is in a SNF. Unclear what this order is for. Should be coming from SNF physician. * Telephone Encounter - Sukh Edmondson RPh - 10/06/2023 10:09 AM EDT Refill pharmacists currently not authorized to approve refills for this class of medication per refill protocol. Please approve if appropriate. Thanks, Sukh Edmondson, PharmD Clinical Pharmacist [facility] [phone] 10/06/2023, 10:09 AM * Telephone Encounter - Sukh Edmondson RPh - 10/06/2023 10:09 AM EDT Pending Prescriptions: Disp Refills Misc. Devices 1 Each 0 Sig: Please custom fit/dispense one pair diabetic accommodative shoes with 3 pairs heat molded accommodative inserts DM with neuropathy documented in this encounter Plan of Treatment Health Maintenance Due Date Last Done Comments COVID-19 Vaccine ( season) 2023 01/23/2022, 01/23/2022, 10/27/2020, Additional history exists CKD PHOS USE SMARTSET 94001 04/08/202303/21, 03/14/2021, 08/10/2017, Additional history exists HbA1c 06/11/2023 12/09/2022, 09/18, 04/08/2022, Additional history exists Diabetic Foot Exam 08/11/2023 08/11/2022, 0 11/01/2021, 01/02/2021, Additional history exists Diabetic Eye Exam 10/03/2023 10/02/2022, , 04/29/2021, Additional history exists Albumin/Creatinine Ratio 10/10/2023 023, 12/26/2021, 03/14/2021, Additional history exists B-12 12/10/2023 12/09/2022, 04/0 12/2021, 09/14/2020, Additional history exists Depression Screening 03/24/2024 03/24/2023, 05/27/20 17 CKD HGB USE SMARTSET 20551 08/31/202408/31, 08/31/2023, 08/26/2023, Additional history exists DTaP,Tdap,and [...] as of this encounter Visit Diagnoses Diagnosis Type 2 diabetes mellitus with hemoglobin A1c goal of less than 7.0% (HCC) History of amputation of lesser toe of left foot (HCC) DM type 2 with diabetic peripheral neuropathy (HCC) Type II or unspecified type diabetes mellitus with neurological manifestations, not stated as uncontrolled documented in this encounter Additional Health Concerns Infection Onset Date Last Indicated Resolved Time 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 No Does the patient have Health Care Power of Research Laboratory Manager? No Code Status History Code Status Date Activated Date Inactivated Comments Full Code 07/23/2017 7:40 PM 07/26/2017 5:13 PM Question Answer Comments Discussion of Advance Direct alyssa occurred with: Not Discussed Healthcare Agents on File Name Relationship Healthcare Agent [facility] Communication Carlene Behrer Spouse Health Care Power of Attorn ey Care Teams Cable Tower Operator Relationship Specialty Start Date End Date [facility] Saldana DO [address] [facility] [address] PCP - General Family Medicine 02/20/22 documented as of this encounter
--- OUTSIDE RECORDS SUMMARY | 2024-01-21 09:21 | External Medical Summary | Summary of Care ---
Author Name Unknown Organization [facility] Address [address] [facility] [place] [address] Phone [phone] Care Team Providers Care Rollout Manager Name Role Phone ShanaMiriamolman Worthington DO Primary Care Provider [phone] Reason for Visit * Reason Onset Date Comments [facility]: Maintenance 10/14/2023 Information 10/14/202310/20 Encounter Details Date Type Department Care Team (Late st Contact Info) Description 10/14/2023 Telephone [facility], [facility] [address] [facility] [place] [address] [facility], Nurse [facility] [address] [facility] [place] [address] [facility]: Maintenance; Informatio... Allergies Active Allergy Reactions Criticality Noted Date Comments Meperidine Psych complications 05/27/2017 Confused documented as of this encounter (statuses as of 10/21/2023) Medications Medication Sig Dispensed Refills Start Date End Date Status OMEGA-3 FISH OIL 1000 MG PO CAPS one daily by mouth 0 A ctive Aspirin 81 MG Tablet Take 1 Tablet by mouth in the morning. 0 Active Multiple Vitamins-Minerals (MULTIVITAL [place]) TABS Take by mouth. 0 Active Blood [...] by mouth at bedtime. 0 05/05/2022 Active OneAutopilot (formerly Bislr)uch Delica Lancets 30GIndications:DM type 2 with diabetic peripheral neuropathy ([facility]) Use to test blood sugars [...] by mouth in the morning. (gets from senior recruitment consultant). 0 10/09/2022 Active Metoprolol Succinate ER [...] Self - Management Plan Other/Additional Comments: contact [facility] for directions Exacerbation Plan Other/Additional Comments: [...] pain despite this dosing, they should call [facility]. Open wound of second toe of left foot 10/11/2021 Last Assessment & Plan: 86-year-old diabetic male with open wounds on the 2nd and 3rd left toe needing home health wound care to ensure that he has proper healing. There is some noted drainage from these wounds. Plan: I will place a home health referral for wound care to [facility]. My recommendations are to cleanse the wounds [...] home health referral for wound care to [facility]. 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 08/09/2019 Last Assessment & Plan: Reported d/t hammer toe Ischemic cardiomyopathy 05/05/2018 Coronary artery disease invo lving [place] coronary artery of [place] heart with angina pectoris 05/05/2018 Overview: July [...] mRNA, LNP-s, No Pre serve, 2-Dose Series ([employer]) 10/27/2020,10/06/2020 COVID-19, LNP-s, No Preserve , Ilan-sucrose, [...] encounter Miscellaneous Notes * Telephone Encounter - Joie Mohan LPN - 10/21/2023 3:48 PM EDT Call placed to [facility] [phone] - spoke to nurse Carmen who states she thinks pt is scheduled to d/c home this Thursday. She transferred me to speak to Summer. Message left on Summer's voice mail for her to contact the office. Will need to relay information below from Dr. Saldana. [facility] will also need to contact the Office of Aging prior to discharging pt. * Telephone Encounter - Victoria Saldana DO - 10/21/2023 3:40 PM EDT I [...] assistance as patient may be discharged from [facility]. reports needing assistance to provide her care If she chooses to bring him home. instructed to ask for a care team meeting to discuss the plan for the patient. EMI Sanchez Lot Attendant [facility] documented in this encounter Plan of Treatment Health Maintenance Due Date Last Done Comments COVID-19 Vaccine ( season) 2023 01/23/2022, 01/23/2022, 10/27/2020, Additional history exists CKD PHOS USE SMARTSET 58810 04/08/2023 09/2 , 03/14/2021, 08/10/2017, Additional history exists HbA1c 06/11/2023 12/09/2022, 032 09/2022, 04/08/2022, Additional history exists Diabetic Foot Exam 08/11/2023 08/11/2022, 0 11/01/2021, 01/02/2021, Additional history exists Diabetic Eye Exam 10/03/2023 10/02/2022, , 04/29/2021, Additional history exists Albumin/Creatinine Ratio 10/10/2023 023, 12/26/2021, 03/14/2021, Additional history exists B-12 12/10/2023 12/09/2022, 04/0 12/2021, 09/14/2020, Additional history exists Depression Screening 03/24/2024 03/24/2023, 05/27/20 17 CKD HGB USE SMARTSET 23374 08/31/202408/31, 08/31/2023, 08/26/2023, Additional history exists DTaP,Tdap,and [...] Documents on File Type Date 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 No Does the patient have Health Care Power of Center Human Resources Manager? No Code Status History Code Status Date Activated Date Inactivated Comments Full Code 07/23/2017 7:40 PM 07/26/2017 5:13 PM Question Answer Comments Discussion of Advance Direct alyssa occurred with: Not Discussed Healthcare Agents on File Name Relationship Healthcare Agent Relationshi p Communication Carlene Behwardr Spouse Health Care Power of Attorn ey Care Teams Rollout Manager Relationship Specialty Start Date End Date Victoria Saldana DO [address] [place] [address] PCP - General Family Medicine 02/20/22 documented as of this encounter
--- OUTSIDE RECORDS SUMMARY | 2024-01-21 09:21 | External Medical Summary | Summary of Care ---
Author Name Unknown Organization [facility] Address [address] [facility] [place] [address] Phone [phone] Care Team Providers Care Home Visitor Name Role Phone Shana Victoria Worthington DO Primary Care Provider [phone] Reason for Visit * Reason Onset Date Comments [facility]: Maintenance 10/14/2023 Information 10/14/202310/20; 10/21 Encounter Details Date Type Department Care Team ([facility] st Contact Info) Description 10/14/2023 Telephone [facility], [facility] [address] [place] [address] [facility], Nurse [facility] [address] [facility] [place] [address] [facility]: Maintenance; Informatio... Allergies Active Allergy Reactions Criticality Noted Date Comments Meperidine Psych complications 05/27/2017 Confused Hydrocodone 10/28/2023 Oxycodone 10/28/2023 documented as of this encounter (statuses as of 11/04/2023) Medications Medication Sig Dispensed Refills Start Date End Date Status OMEGA-3 FISH OIL 1000 MG PO CAPS Take 1 Capsule by mouth in the morning. 0 Active Aspirin 81 MG Tablet Take 1 Tablet by mouth in the morning. 0 Active Multiple Vitamins-Minerals (MULTIVITAL [place]) TABS Take 1 Tablet by mouth daily. 0 Active Blood Glucose Monitoring Suppl (AvazTOUCH VERIO) w/Device KITIndications:DM type 2 nursing care encounter (HCC),Type 2 diabetes mellitus with hemoglobin A1c goal of less than 7.0% (HCC),DM type 2 with diabetic peripheral neuropathy (HCC) Use up to 4 times a day E11.9 1 Kit 0 07/04/2019 Active Glucose Blood (ONETOUCH VERIO) STRPIndications:DM type 2 nursing care encounter ([facility]),Type 2 diabetes mellitus with hemoglobin A1c goal of less than 7.0% ([facility]),DM type 2 with diabetic peripheral neuropathy (HCC) Use up to 4 times a day E11.9 300 Strip 3 07/18/2019 Active Misc. DevicesIndications :Type 2 diabetes mellitus with hemoglobin A1c goal of less than 7.0% ([facility]),History of amputation of lesser toe of left foot (HCC),DM type 2 with diabetic peripheral neuropathy ([facility]) Please custom fit/dispense one pair diabetic [...] hemoglobin A1c goal of less than 8.0% ([facility]),DM type 2 with diabetic peripheral neuropathy (HCC) Take 1 Tablet by mouth in the morning. (gets from programming director). 0 10/09/2022 Active Metoprolol Succinate ER [...] as of this encounter (statuses as of 11/04/2023) Active Problems Problem Noted Date Diagnosed Date [...] Self - Management Plan Other/Additional Comments: contact [facility] for directions Exacerbation Plan Other/Additional Comments: [...] pain despite this dosing, they should call [facility]. 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 05/05/2018 Overview: July [...] 06/23/2017 Adjustment disorder with depressed mood 08/01/19 Essential hypertension with goal blood pressure less than 140/90 08/01/2016 Last Assessment & Plan: BP at goal -continue treatment noted above Dyslipidemia, goal LDL below 70 08/01/2016 Right bundle branch block 08/01/2016 documented as of this encounter (statuses as of 11/04/2023) Resolved Problems Problem Noted Date Diagnosed Date [...] as of this encounter (statuses as of 11/04/2023) Immunizations Name Administration Dates Next Due COVID-19 mRNA, LNP-s, No Pre serve, 2-Dose Series ([facility]) 10/27/2020,10/06/2020 COVID-19, LNP-s, No Preserve , Ilan-sucrose, [...] encounter Miscellaneous Notes * Telephone Encounter - Victoria Saldana DO - 11/04/2023 2:54 PM EDT Noted. * Telephone Encounter - Joie Mohan LPN - 10/22/2023 8:46 AM EDT Call placed to [facility] - spoke to [facility] in the Social Service department. Relayed information from Dr. Saldana. Per Summer - there is not set d/c for pt at this time. is voicing desire to d/c him home as she feels she can provide better care for him. Facility feels pt requires 24/7 care. Informed Summer of Dr. Saldana's concerns that cannot care for him at home. Requested Summer have facility contact [facility] and Dr. Saldana if proceeding with d[facility]c planning[facility] * Telephone Encounter - Joie Mohan LPN - 10/21/2023 3:48 PM EDT Call placed to [facility] [phone] - spoke to nurse Carmen who states she thinks pt is scheduled to d/c home this Thursday. She transferred me to speak to [facility]. Message left on [facility]'s voice mail for her to contact the office. Will need to relay information below from Dr. Saldana. [facility] will also need to contact the Office [...] assistance as patient may be discharged from [facility]. reports needing assistance to provide her care If she chooses to bring him home. instructed to ask for a care team meeting to discuss the plan for the patient. EMI Sanchez Ice Skating Coach [facility] at Home documented in this encounter Plan of Treatment Health Maintenance Due Date Last Done Comments COVID-19 Vaccine ( season) 2023 01/23/2022, 01/23/2022, 10/27/2020, Additional history exists CKD PHOS USE SMARTSET 99881 04/08/202303/21, 03/14/2021, 08/10/2017, Additional history exists HbA1c 06/11/2023 12/09/2022, 09/18, 04/08/2022, Additional history exists Diabetic Foot Exam 08/11/2023 08/11/2022, 0 11/01/2021, 01/02/2021, Additional history exists Diabetic Eye Exam 10/03/2023 10/02/2022, , 04/29/2021, Additional history exists Albumin/Creatinine Ratio 10/10/2023 023, 12/26/2021, 03/14/2021, Additional history exists B-12 12/10/2023 12/09/2022, 04/0 12/2021, 09/14/2020, Additional history exists CKD HGB USE SMARTSET 63595 08/31/202408/31, 08/31/2023, 08/26/2023, Additional history exists DTaP,Tdap,and [...] Documents on File Type Date Recorded Patient Global Process Owner Expl anation POLST 08/11/2022 [place] OR [facility] FOR LIFE-SUSTAINING TREATMENT [place] DEPT OF [...] the patient have Health Care Power of Otr Flatbed Company Truck Driver? No Code Status History Code Status Date Activated Date Inactivated Comments Full Code 07/23/2017 7:40 PM 07/26/2017 5:13 PM Question Answer Comments Discussion of Advance Direct alyssa occurred with: Not Discussed Healthcare Agents on File Name Relationship Healthcare Agent Relationshi p Communication Carlene Behrer Spouse Health Care Power of Attorn ey Care Teams Home Visitor Relationship Specialty Start Date End Date Victoria Saldana DO [address] [facility] [place] [address] PCP - General Family Medicine 02/20/22 documented as of this encounter
--- OUTSIDE RECORDS SUMMARY | 2024-01-21 09:21 | External Medical Summary | Summary of Care ---
Author Name Unknown Organization [facility] Address [address] [facility] [place] [address] Phone [phone] Care Team Providers Care Producer Director Name Role Phone Shana Victoria Worthington DO Primary Care Provider [phone] Reason for Visit * Reason Onset Date Comments [facility]: Maintenance 10/14/2023 Information 10/14/202310/20; 10/21 Encounter Details Date Type Department Care Team ([facility] st Contact Info) Description 10/14/2023 Telephone [facility], [facility] [address] [place] [address] [facility], Nurse [facility] [address] [facility] [place] [address] [facility]: Maintenance; Informatio... Allergies Active Allergy Reactions Criticality Noted Date Comments Meperidine Psych complications 05/27/2017 Confused documented as of this encounter (statuses as of 10/22/2023) Medications Medication Sig Dispensed Refills Start Date End Date Status OMEGA-3 FISH OIL 1000 MG PO CAPS one daily by mouth 0 A ctive Aspirin 81 MG Tablet Take 1 Tablet by mouth in the morning. 0 Active Multiple Vitamins-Minerals (MULTIVITAL [place]) TABS Take by mouth. 0 Active Blood Glucose Monitoring Suppl (ONETOUCH VERIO) w/Device KITIndications:DM type 2 nursing care encounter (HCC),Type 2 diabetes mellitus with hemoglobin A1c goal of less than 7.0% (HCC),DM type 2 with diabetic peripheral neuropathy ([place] [...] by mouth in the morning. (gets from beer coil cleaner). 0 10/09/2022 Active Metoprolol Succinate ER 50 [...] as of this encounter (statuses as of 10/22/2023) Active Problems Problem Noted Date Diagnosed Date [...] Management Plan Other/Additional Comments: contact [facility] for directions Exacerbation Plan Other/Additional Comments: comfort [...] this dosing, they should call [facility]. Open wound of second toe of left foot 10/11/2021 Last Assessment & Plan: 86-year-old diabetic male with open wounds on the 2nd and 3rd left toe needing home health wound care to ensure that he has proper healing. There is some noted drainage from these wounds. Plan: I will place a home health referral for wound care to [facility] health. My recommendations are to [...] health referral for wound care to [facility] home health. 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 08/09/2019 Last Assessment & Plan: Reported d/t hammer toe Ischemic cardiomyopathy 05/05/2018 Coronary artery disease invo lving [place] coronary artery of [place] heart with angina pectoris 05/05/2018 Overview: July [...] as of this encounter (statuses as of 10/22/2023) Resolved Problems Problem Noted Date Diagnosed Date [...] as of this encounter (statuses as of 10/22/2023) Immunizations Name Administration Dates Next Due COVID-19 mRNA, LNP-s, No Pre serve, 2-Dose Series ([employer]) 10/27/2020,10/06/2020 COVID-19, LNP-s, No Preserve , Ilan-sucrose, [...] 10/22/2023 8:46 AM EDT Call placed to [facility] - spoke to jimmy in the Social Service department. Relayed information [...] Dr. Saldana if proceeding with d/c planning. Summeracknowledged and stated they will comply. * Telephone Encounter - Joie Mohan LPN - 10/21/2023 3:48 PM EDT Call placed to [facility] [phone] - spoke to nurse Carmen who states she thinks pt is scheduled to d/c home this Thursday. She transferred me to speak to Summer. Message left on Summer's voice mail for her to contact the office. Will need to relay information below from Dr. Saldana. [facility] will also need to contact the Office [...] assistance as patient may be discharged from [facility]. reports needing assistance to provide her care If she chooses to bring him home. instructed to ask for a care team meeting to discuss the plan for the patient. EMI Sanchez Blueprint Assembler [facility] documented in this encounter Plan of Treatment Health Maintenance Due Date Last Done Comments COVID-19 Vaccine ( season) 2023 01/23/2022, 01/23/2022, 10/27/2020, Additional history exists CKD PHOS USE SMARTSET 65449 04/08/202303/21, 03/14/2021, 08/10/2017, Additional history exists HbA1c 06/11/2023 12/09/2022, 09/18, 04/08/2022, Additional history exists Diabetic Foot Exam 08/11/2023 08/11/2022, 0 11/01/2021, 01/02/2021, Additional history exists Diabetic Eye Exam 10/03/2023 10/02/2022, , 04/29/2021, Additional history exists Albumin/Creatinine Ratio 10/10/2023 023, 12/26/2021, 03/14/2021, Additional history exists B-12 12/10/2023 12/09/2022, 04/0 12/2021, 09/14/2020, Additional history exists Depression Screening 03/24/2024 03/24/2023, 05/27/20 17 CKD HGB USE SMARTSET 48706 08/31/202408/31, 08/31/2023, 08/26/2023, Additional history exists DTaP,Tdap,and [...] Documents on File Type Date Recorded Patient Wine Specialist Expl anation POLST 08/11/2022 [place] OR [facility] FOR LIFE-SUSTAINING TREATMENT [place] DEPT OF HEALTH Advance Directives and Living Will 06/30/2014 ADVANCE DIRECTIVE Latest Code Status on File Code Status Date Activated Date Inactivated Comments Full Code 08/03/2017 11:04 PM 08/10/2017 6:40 PM Question Answer Comments Discussion of Advance Direct alyssa occurred with: Not Discussed Does the patient have a Living Will? No Does the patient have Health Care Power of Zinc Plate Grainer? No Code Status History Code Status Date Activated Date Inactivated Comments Full Code 07/23/2017 7:40 PM 07/26/2017 5:13 PM Question Answer Comments Discussion of Advance Direct alyssa occurred with: Not Discussed Healthcare Agents on File Name Relationship Healthcare Agent Relationshi p Communication Carlene Behrer Spouse Health Care Power of Attorn ey Care Teams Producer Director Relationship Specialty Start Date End Date Victoria Saldana DO [address] [place] [address] PCP - General Family Medicine 02/20/22 documented as of this encounter
--- OUTSIDE RECORDS SUMMARY | 2024-01-21 09:21 | External Medical Summary | Summary of Care ---
Author Name Unknown Organization [facility] Address [address] [place] [address] Phone [phone] Care Team Providers Care Design Coordinator Name Role Phone Shana Victoria Worthington DO Primary Care Provider + [phone] Reason for Visit * Reason Onset Date Comments [facility]: Screening 10/01/2023 Encounter Details Date Type Department Care Team (Late st Contact Info) Description 10/01/2023 Telephone [facility], [facility] [address] [facility] [place] [id number] [facility], Nurse [facility] [address] [facility] [place] [address] [facility]: Screening Allergies Active Allergy Reactions Criticality Noted Date Comments Meperidine Psych complications 05/27/2017 Confused documented as of this encounter (statuses as of 10/01/2023) Medications Medication Sig Dispensed Refills Start Date End Date Status OMEGA-3 FISH OIL 1000 MG PO CAPS one daily by mouth 0 A ctive Aspirin 81 MG Tablet Take 1 Tablet by mouth in the morning. 0 Active Multiple Vitamins-Minerals (MULTIVITAL [place]) TABS Take by mouth. 0 Active Blood Glucose Monitoring Suppl (ONETOUCH VERIO) w/Device KITIndications:DM type 2 nursing care encounter ([facility]),Type 2 diabetes mellitus with hemoglobin A1c [...] by mouth in the morning. (gets from family court registrar). 0 10/09/2022 Active Metoprolol Succinate ER 50 [...] as of this encounter (statuses as of 10/01/2023) Active Problems Problem Noted Date Diagnosed Date [...] Self - Management Plan Other/Additional Comments: contact [facility] for directions Exacerbation Plan Other/Additional [...] pain despite this dosing, they should call [facility]. Open wound of second toe of left foot 10/11/2021 Last Assessment & Plan: 86-year-old diabetic male with open wounds on the 2nd and 3rd left toe needing home health wound care to ensure that he has proper healing. There is some noted drainage from these wounds. Plan: I will place a home health referral for wound care to [facility] health. My recommendations are to cleanse [...] home health referral for wound care to [facility] health. My recommendations are to cleanse [...] as requested by family Was previously with [facility] 06/2022-02/2023 Falls frequently 10/01/2021 Last Assessment & [...] as of this encounter (statuses as of 10/01/2023) Resolved Problems Problem Noted Date Diagnosed Date [...] as of this encounter (statuses as of 10/01/2023) Immunizations Name Administration Dates Next Due COVID-19 mRNA, LNP-s, No Pre serve, 2-Dose Series ([employer]) 10/27/2020,10/06/2020 COVID-19, LNP-s, No Preserve , Ilan-sucrose, [...] encounter Miscellaneous Notes * Telephone Encounter - Vivienne Abrams LPN - 10/01/2023 5:18 PM EDT Terrence Noyola was referred as a potential candidate for enrollment for [facility]. A review of this chart was completed and: Terrence does not meet criteria for enrollment into [facility]. Referral Source: Monthly Proactive Eligibility List Criteria for Ineligibility: [facility] Referring care team was notified via : [employer] communication documented in this encounter Plan of Treatment Health Maintenance Due Date Last Done Comments COVID-19 Vaccine ( season) 2023 01/23/2022, 01/23/2022, 10/27/2020, Additional history exists CKD PHOS USE SMARTSET 91365 04/08/2023 09, 03/14/2021, 08/10/2017, Additional history exists [...] 03/24/2023, 05/27/20 17 CKD HGB USE SMARTSET 89060 08/31/202408/31, 08/31/2023, 08/26/2023, Additional history exists DTaP,Tdap,and [...] Documents on File Type Date Recorded 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 No Code Status History Code Status Date Activated Date Inactivated Comments Full Code 07/23/2017 7:40 PM 07/26/2017 5:13 PM Question Answer Comments Discussion of Advance Direct alyssa occurred with: Not Discussed Healthcare Agents on File Name Relationship Healthcare Agent Relationshi p Communication Carlene Behrer Spouse Health Care Power of Attorn ey Care Teams Design Coordinator Relationship Specialty Start Date End Date Victoria Saldana DO [address] [place] [place] [address] PCP - General Family Medicine 02/20/22 documented as of this encounter
--- OUTSIDE RECORDS SUMMARY | 2024-01-21 09:21 | External Medical Summary | Summary of Care ---
Author Name Unknown Organization [facility] Address [address] [facility] [place] [address] Phone [phone] Care Team Providers Care Citrix Systems Administrator Name Role Phone TyrelVictoria willingham Primary Care Provider + [phone] Encounter Details Date Type Department Care Team (Late st Contact Info) Description 09/30/2023 Population Health External Data Unspecified Department Allergies Active Allergy Reactions Criticality Noted Date Comments Meperidine Psych complications 05/27/2017 Confused documented as of this encounter (statuses as of 09/30/2023) Medications Medication Sig Dispensed Refills Start Date End Date Status OMEGA-3 FISH OIL 1000 MG PO CAPS one daily by mouth 0 A ctive Aspirin 81 MG Tablet Take 1 Tablet by mouth in the morning. 0 Active Multiple Vitamins-Minerals (MULTIVITAL [place]) TABS Take by mouth. 0 Active Blood [...] hemoglobin A1c goal of less than 7.0% ([facility]),History of amputation of lesser toe of [...] hemoglobin A1c goal of less than 8.0% ([facility]),DM type 2 with diabetic peripheral neuropathy ([facility]) Take 1 Tablet by mouth in the morning. (gets from compliance director). 0 10/09/2022 Active Metoprolol Succinate ER [...] as of this encounter (statuses as of 09/30/2023) Active Problems Problem Noted Date Diagnosed Date [...] Self - Management Plan Other/Additional Comments: contact [facility] for directions Exacerbation Plan Other/Additional [...] pain despite this dosing, they should call [facility]. 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 t 08/09/2019 Last Assessment & Plan: Reported d/t hammer toe Ischemic cardiomyopathy 05/05/2018 Coronary artery disease invo lving [place] coronary artery of [place] heart with angina pectoris 05/05/2018 Overview: July [...] as of this encounter (statuses as of 09/30/2023) Resolved Problems Problem Noted Date Diagnosed Date [...] as of this encounter (statuses as of 09/30/2023) Immunizations Name Administration Dates Next Due COVID-19 [...] as of this encounter Plan of Treatment Upcoming Encounters Date Type Department Care Team (Late st Contact Info) Description 09/30/2023 1:30 PM EDT Office Visit Cardiology, [facility] [address] [facility] [place] [address] Tess Riddle PA-C [address] [place] [address] [place] [address] Health Maintenance Due Date Last Done Comments COVID-19 Vaccine ( season) 2023 01/23/2022, 01/23/2022, 10/27/2020, Additional history exists CKD PHOS USE SMARTSET 65604 04/08/2023 092 , 03/14/2021, 08/10/2017, Additional history [...] 03/24/2023, 05/27/20 17 CKD HGB USE SMARTSET 66277 08/31/202408/31, 08/31/2023, 08/26/2023, Additional history exists DTaP,Tdap,and [...] Documents on File Type Date Recorded Patient Motor Tune Up Specialist Expl anation POLST 08/11/2022 [place] OR [facility] FOR LIFE-SUSTAINING TREATMENT [place] DEPT OF HEALTH Advance Directives and Living Will 06/30/2014 ADVANCE DIRECTIVE Latest Code Status on File Code Status Date Activated Date Inactivated Comments Full Code 08/03/2017 11:04 PM 08/10/2017 6:40 PM Question Answer Comments Discussion of Advance Direct alyssa occurred with: Not Discussed Does the patient have a Living Will? No Does the patient have Health Care Power of Autocutter? No Code Status History Code Status Date Activated Date Inactivated Comments Full Code 07/23/2017 7:40 PM 07/26/2017 5:13 PM Question Answer Comments Discussion of Advance Direct alyssa occurred with: Not Discussed Healthcare Agents on File Name Relationship Healthcare Agent Relationshi p Communication Carlene Behlaurent Spouse Health Care Power of Attorn ey Care Teams [employer] Systems Administrator Relationship Specialty Start Date End Date Victoria Saldana DO [address] [place] [address] PCP - General Family Medicine 02/20/22 documented as of this encounter
--- OUTSIDE RECORDS SUMMARY | 2024-01-21 09:22 | External Medical Summary | Summary of Care ---
Author Name Unknown Organization [facility] Address [address] [facility] [facility] [place] [address] Phone [phone] Care Team Providers Care Cargo Service Supervisor Name Role Phone ShanaMiriamolman Worthington DO Primary Care Provider + [phone] Reason for Visit * Reason Onset Date Comments [facility]: Maintenance 09/14/2023 Encounter Details Date Type Department Care Team (Late st Contact Info) Description 09/14/2023 1:30 PM EST Scheduled Telephone [facility], [facility] [address] [facility] [place] [address] [facility] [address] [facility] [place] [address] Allergies Active Allergy Reactions Criticality Noted Date Comments Meperidine Psych complications 05/27/2017 Confused documented as of this encounter (statuses as of 09/14/2023) Medications Medication Sig Dispensed Refills Start Date End Date Status OMEGA-3 FISH OIL 1000 MG PO CAPS one daily by mouth 0 A ctive Aspirin 81 MG Tablet Take 1 Tablet by mouth in the morning. 0 Active Multiple Vitamins-Minerals (MULTIVITAL [place]) TABS Take by mouth. 0 Active Blood Glucose Monitoring Suppl (ONETOUCH VERIO) w/Device KITIndications:DM type 2 nursing care encounter (HCC),Type 2 diabetes mellitus with hemoglobin A1c goal of less than 7.0% ([facility]),DM type 2 with diabetic peripheral neuropathy ([facility]) Use up to 4 times a [...] by mouth in the morning. (gets from public health worker). 0 10/09/2022 Active Metoprolol Succinate ER 50 [...] as of this encounter (statuses as of 09/14/2023) Active Problems Problem Noted Date Diagnosed Date [...] Self - Management Plan Other/Additional Comments: contact [facility] for directions Exacerbation Plan Other/Additional [...] pain despite this dosing, they should call [facility]. Open wound of second toe of left foot 10/11/2021 Last Assessment & Plan: 86-year-old diabetic male with open wounds on the 2nd and 3rd left toe needing home health wound care to ensure that he has proper healing. There is some noted drainage from these wounds. Plan: I will place a home health referral for wound care to [facility]. My recommendations are to cleanse the [...] home health referral for wound care to [facility] health. 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 08/09/2019 Last Assessment & Plan: Reported d/t hammer toe Ischemic cardiomyopathy 05/05/2018 Coronary artery disease invo lving [place] coronary artery of [place] heart with angina pectoris 05/05/2018 Overview: July [...] as of this encounter (statuses as of 09/14/2023) Resolved Problems Problem Noted Date Diagnosed Date [...] as of this encounter (statuses as of 09/14/2023) Immunizations Name Administration Dates Next Due COVID-19 mRNA, LNP-s, No Pre serve, 2-Dose Series (Neighborhoods) 10/27/2020,10/06/2020 COVID-19, LNP-s, No Preserve , Ilan-sucrose, [...] encounter Miscellaneous Notes * Telephone Encounter - JasonCassandra lara CM - 09/14/2023 12:38 PM EST Call placed to [place]. Confirmed that patient is still at facility. Transferred to [facility] requesting a ca CB Cassandra Gomez Drill Rig Operator [facility] at Home [email or web address] documented in this encounter Plan of Treatment Upcoming Encounters Date Type Department Care Team (Late st Contact Info) Description 09/29/2023 12:30 PM EDT Office Visit Sleep Disorders Ctr [facility] [address] [place] [phone] Neela Brunner CRNP [address] [place] [address] 09/30/2023 1:30 PM EDT Office Visit Cardiology, [facility] [address] [place] [address] Tess Riddle PA-C [address] [place] [phone] Health Maintenance Due Date Last Done Comments COVID-19 Vaccine ( season) 2023 01/23/2022, 01/23/2022, 10/27/2020, Additional history exists CKD PHOS USE SMARTSET 76397 04/08/202303/21, 03/14/2021, 08/10/2017, Additional history exists HbA1c 06/11/2023 12/09/2022, 09/18, 04/08/2022, Additional history exists Diabetic Foot Exam 08/11/2023 08/11/2022, 0 11/01/2021, 01/02/2021, Additional history exists Diabetic Eye Exam 10/03/2023 10/02/2022, , 04/29/2021, Additional history exists Albumin/Creatinine Ratio 10/10/2023 023, 12/26/2021, 03/14/2021, Additional history exists B-12 12/10/2023 12/09/2022, 04/0 12/2021, 09/14/2020, Additional history exists Depression Screening 03/24/2024 03/24/2023, 05/27/20 17 CKD HGB USE SMARTSET 03491 08/31/202408/31, 08/31/2023, 08/26/2023, Additional history exists DTaP,Tdap,and [...] Documents on File Type Date Recorded Patient Bulk Plant Manager Expl anation POLST 08/11/2022 [place] OR [facility] FOR [place]-SUSTAINING [place]RE[place] DEPT OF HEALTH Advance Directives and Living Will 06/30/2014 ADVANCE DIRECTIVE Latest Code Status on File Code Status Date Activated Date Inactivated Comments Full Code 08/03/2017 11:04 PM 08/10/2017 6:40 PM Question Answer Comments Discussion of Advance Direct alyssa occurred with: Not Discussed Does the patient have a Living Will? No Does the patient have Health Care Power of Business Analyst Consultant? No Code Status History Code Status Date Activated Date Inactivated Comments Full Code 07/23/2017 7:40 PM 07/26/2017 5:13 PM Question Answer Comments Discussion of Advance Direct alyssa occurred with: Not Discussed Healthcare Agents on File Name Relationship Healthcare Agent Relationshi p Communication Carlene Behrer Spouse Health Care Power of Attorn ey Care Teams Cargo Service Supervisor Relationship Specialty Start Date End Date Victoria Saldana DO [address] [place] [address] PCP - General Family Medicine 02/20/22 documented as of this encounter
--- OUTSIDE RECORDS SUMMARY | 2024-01-21 09:22 | External Medical Summary | Summary of Care ---
Author Name Unknown Organization [facility] Address [address] [place] [facility] [address] Phone [phone] Care Team Providers Care Ecology Teacher Name Role Phone ShanaMiriamolman Worthington DO Primary Care Provider + [phone] Encounter Details Date Type Department Care Team (Late st Contact Info) Description 09/09/2023 Result Scan Unspecified Department Omid Lyons MD [address] [place] [address] <No scans attached> Allergies Active Allergy Reactions Criticality Noted Date Comments Meperidine Psych complications 05/27/2017 Confused documented as of this encounter (statuses as of 09/09/2023) Medications Medication Sig Dispensed Refills Start Date End Date Status OMEGA-3 FISH OIL 1000 MG PO CAPS one daily by mouth 0 A ctive Aspirin 81 MG Tablet Take 1 Tablet by mouth in the morning. 0 Active Multiple Vitamins-Minerals (MULTIVITAL [place]) TABS Take by mouth. 0 Active Blood [...] of less than 7.0% ([facility]),History of amputation of lesser toe of [...] with diabetic peripheral neuropathy ([facility]) Use to test blood sugars once daily 100 Each 3 05/05/2022 Active Biotin 5 MG Oral Capsule Take 1 Capsule by mouth in the morning. 30 Capsule 0 05/14/2022 Active Empagliflozin 25 MG Oral TabletIndications: Type 2 diabetes mellitus with hemoglobin A1c goal of less than 8.0% ([facility]),DM type 2 with diabetic peripheral neuropathy (HCC) Take 1 Tablet by mouth in the morning. (gets from search planner). 0 10/09/2022 Active Metoprolol Succinate ER 50 [...] as of this encounter (statuses as of 09/09/2023) Active Problems Problem Noted Date Diagnosed Date [...] Self - Management Plan Other/Additional Comments: contact [facility] for directions Exacerbation Plan Other/Additional [...] pain despite this dosing, they should call [facility]. Open wound of second toe of left foot 10/11/2021 Last Assessment & Plan: 86-year-old diabetic male with open wounds on the 2nd and 3rd left toe needing home health wound care to ensure that he has proper healing. There is some noted drainage from these wounds. Plan: I will place a home health referral for wound care to [facility] home health. My recommendations are to [...] health referral for wound care to [facility] home health. 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 08/09/2019 Last Assessment & Plan: Reported d/t hammer toe Ischemic cardiomyopathy 05/05/2018 Coronary artery disease invo lving [place] coronary artery of [place] heart with angina pectoris 05/05/2018 Overview: July [...] as of this encounter (statuses as of 09/09/2023) Resolved Problems Problem Noted Date Diagnosed Date [...] as of this encounter (statuses as of 09/09/2023) Immunizations Name Administration Dates Next Due COVID-19 mRNA, LNP-s, No Pre serve, 2-Dose Series ([employer]) 10/27/2020,10/06/2020 COVID-19, LNP-s, No Preserve , Ilan-sucrose, [...] Care Team (Late st Contact Info) Description 09/11/2023 10:45 AM EST Scheduled Telephone [facility], [facility] [address] [facility] [place] [address] Cassandra Gomez CM [address] [place] [address] 09/29/2023 12:30 PM EDT [facility] [address] [place] [phone] Neela Brunner CRNP [address] [facility] [place] [address] 09/30/2023 1:30 PM EDT Office Visit Cardiology, [facility] [address] [place] [address] Tess Riddle PA-[place] [address] [place] [address] Health Maintenance Due Date Last Done Comments COVID-19 Vaccine ( season) 2023 01/23/2022, 01/23/2022, 10/27/2020, Additional history exists CKD PHOS USE SMARTSET 53152 04/08/202303/21, 03/14/2021, 08/10/2017, Additional history exists HbA1c 06/11/2023 12/09/2022, 09/18, 04/08/2022, Additional history exists Diabetic Foot Exam 08/11/2023 08/11/2022, 0 11/01/2021, 01/02/2021, Additional history exists Diabetic Eye Exam 10/03/2023 10/02/2022, , 04/29/2021, Additional history exists Albumin/Creatinine Ratio 10/10/2023 023, 12/26/2021, 03/14/2021, Additional history exists B-12 12/10/2023 12/09/2022, 04/0 12/2021, 09/14/2020, Additional history exists Depression Screening 03/24/2024 03/24/2023, 05/27/20 17 CKD HGB USE SMARTSET 93203 08/31/202408/31, 08/31/2023, 08/26/2023, Additional history exists DTaP,Tdap,and [...] Date/Time Associated Diagnosis Comments CARDIOLOGY SCANNED RESULT 09/09/2023 documented in this encounter Results * CARDIOLOGY SCANNED RESULT (09/09/2023) 09/09/2023 Omid Lyons MD OTHER documented in this encounter Additional Health Concerns Infection Onset Date Last Indicated Resolved Time 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 No Does the patient have Health Care Power of Cylinder Machine Operator Pulp Drier? No Code Status History Code Status Date Activated Date Inactivated Comments Full Code 07/23/2017 7:40 PM 07/26/2017 5:13 PM Question Answer Comments Discussion of Advance Direct alyssa occurred with: Not Discussed Healthcare Agents on File Name Relationship Healthcare Agent Relationshi p Communication Carlene Behrer Spouse Health Care Power of Attorn ey Care Teams Ecology Teacher Relationship Specialty Start Date End Date Victoria Saldana DO [address] [place] [address] PCP - General Family Medicine 02/20/22 documented as of this encounter
--- OUTSIDE RECORDS SUMMARY | 2024-01-21 09:22 | External Medical Summary | Summary of Care ---
Author Name Unknown Organization [facility] Address [address] [facility] [place] [address] Phone [phone] Care Team Providers Care Meat Soaker Name Role Phone ShanaMiriamolman Worthington DO Primary Care Provider + [phone] Reason for Visit * Reason Onset Date Comments [facility]: Maintenance 09/01/2023 Encounter Details Date Type Department Care Team (Late st Contact Info) Description 09/01/2023 12:00 PM EST Scheduled Telephone [facility], [facility] [address] [facility] [place] [address] [facility] [address] [facility] [place] [address] Allergies Active Allergy Reactions Criticality Noted Date Comments Meperidine Psych complications 05/27/2017 Confused documented as of this encounter (statuses as of 09/01/2023) Medications Medication Sig Dispensed Refills Start Date End Date Status OMEGA-3 FISH OIL 1000 MG PO CAPS one daily by mouth 0 A ctive Aspirin 81 MG Tablet Take 1 Tablet by mouth in the morning. 0 Active Multiple Vitamins-Minerals (MULTIVITAL [place]PPI [place]) TABS Take by mouth. 0 Active Blood Glucose Monitoring Suppl (ONETOUCH VERIO) w/Device KITIndications:DM type 2 nursing care encounter (HCC),Type 2 diabetes mellitus with hemoglobin A1c goal of less than 7.0% ([facility]),DM type 2 with diabetic peripheral neuropathy ([facility]) Use up to 4 times a [...] mouth in the morning. (gets from supervisor type photography). 0 10/09/2022 Active Metoprolol Succinate ER 50 [...] as of this encounter (statuses as of 09/01/2023) Active Problems Problem Noted Date Diagnosed Date [...] Self - Management Plan Other/Additional Comments: contact [facility] for directions Exacerbation Plan Other/Additional Comments: [...] pain despite this dosing, they should call [facility]. Open wound of second toe of left foot 10/11/2021 Last Assessment & Plan: 86-year-old diabetic male with open wounds on the 2nd and 3rd left toe needing home health wound care to ensure that he has proper healing. There is some noted drainage from these wounds. Plan: I will place a home health referral for wound care to [facility] health. My recommendations are to [...] home health referral for wound care to [facility] health. 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 08/09/2019 Last Assessment & Plan: Reported d/t hammer toe Ischemic cardiomyopathy 05/05/2018 Coronary artery disease invo lving [place] coronary artery of [place] heart with angina pectoris 05/05/2018 Overview: July [...] as of this encounter (statuses as of 09/01/2023) Resolved Problems Problem Noted Date Diagnosed Date [...] as of this encounter (statuses as of 09/01/2023) Immunizations Name Administration Dates Next Due COVID-19 mRNA, LNP-s, No Pre serve, 2-Dose Series ([employer]) 10/27/2020,10/06/2020 COVID-19, LNP-s, No Preserve , Ilan-sucrose, [...] Telephone Encounter - Cassandra Gomez CM - 09/01/2023 12:11 PM EST Pt sent to ED and d/c back to SNF.. CW will f/u in one week for dc planning Cassandra Gomez Wood Web Weaving Machine Operator Rohit at Home [email or web address] documented in this encounter Plan of Treatment Upcoming Encounters Date Type Department Care Team (Late st Contact Info) Description 09/07/2023 8:40 AM EST Office Visit Podiatry, [facility] [address] [place] [address] Janis Mg DPM [address] [place] [address] 09/11/2023 10:45 AM EST Scheduled Telephone [facility], [facility] [address] [facility] [place] [address] Cassandra Gomez CM [address] [place] [address] 09/29/2023 12:30 PM EDT Office Visit Sleep Disorders Ctr [facility] [address] [phone] Neela Brunner CRNP [address] [place] [address] 09/30/2023 1:30 PM EDT Office Visit Cardiology, [facility] [address] [place] [address] Tess Riddle PA-C [address] [place] [address] Health Maintenance Due Date Last Done Comments Hepatitis B (1 of 3 - Risk 3-dose series) 1995 COVID-19 Vaccine (24 season) 2023 01/23/2022, 01/23/2022, 10/27/2020, Additional history exists CKD PHOS USE SMARTSET 26454 04/08/2023 09/2 , 03/14/2021, 08/10/2017, Additional history [...] 03/24/2023, 05/27/20 17 CKD HGB USE SMARTSET 10946 08/31/202408/31, 08/31/2023, 08/26/2023, Additional history exists DTaP,Tdap,and [...] on File Type Date Recorded Patient Field Examiner Lisa KUHN 08/11/2022 [place] OR [place] FOR LIFE-SUSTAINING TREATMENT [place] DEPT OF HEALTH Advance Directives and Living Will 06/30/2014 ADVANCE DIRECTIVE Latest Code Status on File Code Status Date Activated Date Inactivated Comments Full Code 08/03/2017 11:04 PM 08/10/2017 6:40 PM Question Answer Comments Discussion of Advance Direct alyssa occurred with: Not Discussed Does the patient have a Living Will? No Does the patient have Health Care Power of Typesetter Perforator Operator? No Code Status History Code Status Date Activated Date Inactivated Comments Full Code 07/23/2017 7:40 PM 07/26/2017 5:13 PM Question Answer Comments Discussion of Advance Direct alyssa occurred with: Not Discussed Healthcare Agents on File Name Relationship Healthcare Agent Relationshi p Communication Carlene Behrer Spouse Health Care Power of Attorn ey Care Teams Meat Soaker Relationship Specialty Start Date End Date Victoria Saldana DO [address] [place] [address] PCP - General Family Medicine 02/20/22 documented as of this encounter
--- OUTSIDE RECORDS SUMMARY | 2024-01-21 09:22 | External Medical Summary | Summary of Care ---
Author Name Unknown Organization [facility] Address [address] [facility] [place] [address] Phone [phone] Care Team Providers Care Salon Designer Name Role Phone ShanaMiriamolman Worthington DO Primary Care Provider + [phone] Reason for Visit * Reason Onset Date Comments [facility]: Maintenance 09/29/2023 Encounter Details Date Type Department Care Team (Late st Contact Info) Description 09/29/2023 10:15 AM EDT Scheduled Telephone [facility], [facility] [address] [facility] [place] [address] [facility] [address] [place] [address] Allergies Active Allergy Reactions Criticality Noted Date Comments Meperidine Psych complications 05/27/2017 Confused documented as of this encounter (statuses as of 09/29/2023) Medications Medication Sig Dispensed Refills Start Date End Date Status OMEGA-3 FISH OIL 1000 MG PO CAPS one daily by mouth 0 A ctive Aspirin 81 MG Tablet Take 1 Tablet by mouth in the morning. 0 Active Multiple Vitamins-Minerals (MULTIVITAL [place]) TABS Take by mouth. 0 Active Blood Glucose Monitoring Suppl (ONETOUCH VERIO) w/Device KITIndications:DM type 2 nursing care encounter ([facility]),Type 2 diabetes mellitus with hemoglobin A1c goal of less than 7.0% ([facility]),DM type 2 with diabetic peripheral neuropathy ([facility]) Use up to 4 times a [...] by mouth in the morning. (gets from crew boss). 0 10/09/2022 Active Metoprolol Succinate ER 50 [...] as of this encounter (statuses as of 09/29/2023) Active Problems Problem Noted Date Diagnosed Date [...] Self - Management Plan Other/Additional Comments: contact [facility] for directions Exacerbation Plan Other/Additional [...] pain despite this dosing, they should call [facility]. Open wound of second toe of left foot 10/11/2021 Last Assessment & Plan: 86-year-old diabetic male with open wounds on the 2nd and 3rd left toe needing home health wound care to ensure that he has proper healing. There is some noted drainage from these wounds. Plan: I will place a home health referral for wound care to [facility]. My recommendations are to [...] home health referral for wound care to [facility]. 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 t 08/09/2019 Last Assessment & Plan: Reported d/t hammer toe Ischemic cardiomyopathy 05/05/2018 Coronary artery disease invo lving [place] coronary artery of [place] heart with angina pectoris 05/05/2018 Overview: July [...] as of this encounter (statuses as of 09/29/2023) Resolved Problems Problem Noted Date Diagnosed Date [...] as of this encounter (statuses as of 09/29/2023) Immunizations Name Administration Dates Next Due COVID-19 mRNA, LNP-s, No Pre serve, 2-Dose Series (Fabkids) 10/27/2020,10/06/2020 COVID-19, LNP-s, No Preserve , Ilan-sucrose, [...] Telephone Encounter - Cassandra Gomez CM - 09/29/2023 9:42 AM EDT Call placed to [place]. Spoke with Lars in social media assistant. At this time patient will remain LTC. is unable to care for patient at home. CW will update chart and route to care team Cassandra Gomez Supervisor [facility] [email or web address] documented in this encounter Plan of Treatment Upcoming Encounters Date Type Department Care Team (Late st Contact Info) Description 09/29/2023 12:30 PM EDT Office Visit Sleep Disorders Ctr [facility] [address] [place] [phone] Neela Brunner CRNP [address] [place] [address] 09/30/2023 1:30 PM EDT Office Visit Cardiology, [facility] [address] [place] [address] Tess Riddle PA-C [address] [place] [address] Health Maintenance Due Date Last Done Comments COVID-19 Vaccine ( season) 2023 01/23/2022, 01/23/2022, 10/27/2020, Additional history exists CKD PHOS USE SMARTSET 11582 04/08/202303/21, 03/14/2021, 08/10/2017, Additional history exists HbA1c 06/11/2023 12/09/2022, 09/18, 04/08/2022, Additional history exists Diabetic Foot Exam 08/11/2023 08/11/2022, 0 11/01/2021, 01/02/2021, Additional history exists Diabetic Eye Exam 10/03/2023 10/02/2022, , 04/29/2021, Additional history exists Albumin/Creatinine Ratio 10/10/2023 023, 12/26/2021, 03/14/2021, Additional history exists B-12 12/10/2023 12/09/2022, 04/0 12/2021, 09/14/2020, Additional history exists Depression Screening 03/24/2024 03/24/2023, 05/27/20 17 CKD HGB USE SMARTSET 84449 08/31/202408/31, 08/31/2023, 08/26/2023, Additional history exists DTaP,Tdap,and [...] Documents on File Type Date Recorded Patient Dental Assistant Instructor Expl anation POL 08/11/2022 [place] [facility] FOR LIFE-SUSTAINING TREATMENT [place] DEPT OF HEALTH Advance Directives and Living Will 06/30/2014 ADVANCE DIRECTIVE Latest Code Status on File Code Status Date Activated Date Inactivated Comments Full Code 08/03/2017 11:04 PM 08/10/2017 6:40 PM Question Answer Comments Discussion of Advance Direct alyssa occurred with: Not Discussed Does the patient have a Living Will? No Does the patient have Health Care Power of Shredding Machine Operator? No Code Status History Code Status Date Activated Date Inactivated Comments Full Code 07/23/2017 7:40 PM 07/26/2017 5:13 PM Question Answer Comments Discussion of Advance Direct alyssa occurred with: Not Discussed Healthcare Agents on File Name Relationship Healthcare Agent Relationshi p Communication Carlene Behwardr Spouse Health Care Power of Attorn ey Care Teams Salon Designer Relationship Specialty Start Date End Date Victoria Saldana DO [address] [place] [address] PCP - General Family Medicine 02/20/22 documented as of this encounter
--- OUTSIDE RECORDS SUMMARY | 2024-01-21 09:22 | External Medical Summary | Summary of Care ---
Author Name Unknown Organization [facility] Address [address] [facility] [place] [address] Phone [phone] Care Team Providers Care Rn Assessment Name Role Phone ShanaMiriamolman Worthington DO Primary Care Provider + [phone] Reason for Visit * Reason Onset Date Comments [facility]: Maintenance 09/14/2023 Encounter Details Date Type Department Care Team (Late st Contact Info) Description 09/14/2023 1:30 PM EST Scheduled Telephone [facility], [facility] [address] [facility] [place] [address] [facility] [address] [facility] [facility] [place] [address] Allergies Active Allergy Reactions Criticality Noted Date Comments Meperidine Psych complications 05/27/2017 Confused documented as of this encounter (statuses as of 09/17/2023) Medications Medication Sig Dispensed Refills Start Date End Date Status OMEGA-3 FISH OIL 1000 MG PO CAPS one daily by mouth 0 A ctive Aspirin 81 MG Tablet Take 1 Tablet by mouth in the morning. 0 Active Multiple Vitamins-Minerals (MULTIVITAL [place]) TABS Take by mouth. 0 Active Blood Glucose Monitoring Suppl (ONETOUCH VERIO) w/Device KITIndications:DM type 2 nursing care encounter (HCC),Type 2 diabetes mellitus with hemoglobin A1c goal of less than 7.0% ([facility]),DM type 2 with diabetic peripheral neuropathy ([facility]) Use up to 4 times a [...] by mouth in the morning. (gets from beater operator). 0 10/09/2022 Active Metoprolol Succinate ER 50 [...] as of this encounter (statuses as of 09/17/2023) Active Problems Problem Noted Date Diagnosed Date [...] Self - Management Plan Other/Additional Comments: contact [facility] for directions Exacerbation Plan Other/Additional [...] pain despite this dosing, they should call [facility]. Open wound of second toe of left foot 10/11/2021 Last Assessment & Plan: 86-year-old diabetic male with open wounds on the 2nd and 3rd left toe needing home health wound care to ensure that he has proper healing. There is some noted drainage from these wounds. Plan: I will place a home health referral for wound care to [facility]. My recommendations are to cleanse [...] home health referral for wound care to [facility] health. 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 08/09/2019 Last Assessment & Plan: Reported d/t hammer toe Ischemic cardiomyopathy 05/05/2018 Coronary artery disease invo lving [place] coronary artery of [place] heart with angina pectoris 05/05/2018 Overview: July [...] as of this encounter (statuses as of 09/17/2023) Resolved Problems Problem Noted Date Diagnosed Date [...] as of this encounter (statuses as of 09/17/2023) Immunizations Name Administration Dates Next Due COVID-19 mRNA, LNP-s, No Pre serve, 2-Dose Series (Noteleaf) 10/27/2020,10/06/2020 COVID-19, LNP-s, No Preserve , Ilan-sucrose, [...] 09/14/2023 12:38 PM EST Call placed to [place]. Confirmed that patient is still at facility. Transferred to [facility] requesting a ca CB Incoming call from Lars at [facility]. Pt will most likely be LTC. unable to care for patient at home. CW will f/u in 2 weeks for updates Cassandra Gomez Custody Officer [facility] [email or web address] documented in this encounter Plan of Treatment Upcoming Encounters Date Type Department Care Team (Late st Contact Info) Description 09/29/2023 10:15 AM EDT Scheduled Telephone [facility], [facility] [address] [facility] [place] [address] Cassandra Gomez CM [address] [facility] [place] [address] 09/29/2023 12:30 PM EDT Office Visit Sleep Disorders Ctr [facility] [address] [facility] [place] [phone] Neela Brunner CRNP [address] [facility] [place] [address] 09/30/2023 1:30 PM EDT Office Visit Cardiology, [facility] [address] [facility] [place] [address] Tess Riddle PA-C [address] [place] [id number] Health Maintenance Due Date Last Done Comments COVID-19 Vaccine ( season) 2023 01/23/2022, 01/23/2022, 10/27/2020, Additional history exists CKD PHOS USE SMARTSET 25405 04/08/202303/21, 03/14/2021, 08/10/2017, Additional history exists HbA1c 06/11/2023 12/09/2022, 09/18, 04/08/2022, Additional history exists Diabetic Foot Exam 08/11/2023 08/11/2022, 0 11/01/2021, 01/02/2021, Additional history exists Diabetic Eye Exam 10/03/2023 10/02/2022, , 04/29/2021, Additional history exists Albumin/Creatinine Ratio 10/10/2023 023, 12/26/2021, 03/14/2021, Additional history exists B-12 12/10/2023 12/09/2022, 04/0 12/2021, 09/14/2020, Additional history exists Depression Screening 03/24/2024 03/24/2023, 05/27/20 17 CKD HGB USE SMARTSET 24617 08/31/202408/31, 08/31/2023, 08/26/2023, Additional history exists DTaP,Tdap,and [...] Documents on File Type Date Recorded Patient Macerator Operator Expl anation POLST 08/11/2022 [place] OR [facility] FOR LIFE-SUSTAINING TREATMENT [place] DEPT OF HEALTH Advance Directives and Living Will 06/30/2014 ADVANCE DIRECTIVE Latest Code Status on File Code Status Date Activated Date Inactivated Comments Full Code 08/03/2017 11:04 PM 08/10/2017 6:40 PM Question Answer Comments Discussion of Advance Direct alyssa occurred with: Not Discussed Does the patient have a Living Will? No Does the patient have Health Care Power of Spray Gunner? No Code Status History Code Status Date Activated Date Inactivated Comments Full Code 07/23/2017 7:40 PM 07/26/2017 5:13 PM Question Answer Comments Discussion of Advance Direct alyssa occurred with: Not Discussed Healthcare Agents on File Name Relationship Healthcare Agent Relationshi p Communication Carlene Behrer Spouse Health Care Power of Attorn ey Care Teams Rn Assessment Relationship Specialty Start Date End Date Victoria Saldana DO [address] [place] [address] PCP - General Family Medicine 02/20/22 documented as of this encounter
--- OUTSIDE RECORDS SUMMARY | 2024-01-21 09:22 | External Medical Summary | Summary of Care ---
Author Name Unknown Organization [facility] Address [address] [facility] [place] [address] Phone [phone] Care Team Providers Care Package Liner Name Role Phone ShanaMiriamolman Worthington DO Primary Care Provider + [phone] Reason for Visit * Reason Onset Date Comments [facility]: Maintenance 09/01/2023 Encounter Details Date Type Department Care Team (Late st Contact Info) Description 09/01/2023 9:15 AM EST Scheduled Telephone [facility], [facility] [address] [place] [address] Coordinator, [facility] [address] [place] [address] Allergies Active Allergy Reactions Criticality Noted Date Comments Meperidine Psych complications 05/27/2017 Confused documented as of this encounter (statuses as of 09/01/2023) Medications Medication Sig Dispensed Refills Start Date End Date Status OMEGA-3 FISH OIL 1000 MG PO CAPS one daily by mouth 0 A ctive Aspirin 81 MG Tablet Take 1 Tablet by mouth in the morning. 0 Active Multiple Vitamins-Minerals (MULTIVITAL [place]) TABS Take by mouth. 0 Active Blood Glucose Monitoring Suppl (ONETOUCH VERIO) w/Device KITIndications:DM type 2 nursing care encounter (HCC),Type 2 diabetes mellitus with hemoglobin A1c goal of less than 7.0% ([facility]),DM type 2 with diabetic peripheral neuropathy ([facility]) Use up to 4 times a [...] by mouth in the morning. (gets from valet cashier). 0 10/09/2022 Active Metoprolol Succinate ER 50 [...] - Management Plan Other/Additional Comments: contact [facility] for directions Exacerbation Plan Other/Additional Comments: [...] despite this dosing, they should call [facility]. Open wound of second toe of left foot 10/11/2021 Last Assessment & Plan: 86-year-old diabetic male with open wounds on the 2nd and 3rd left toe needing home health wound care to ensure that he has proper healing. There is some noted drainage from these wounds. Plan: I will place a home health referral for wound care to [facility]. My recommendations are to cleanse the [...] home health referral for wound care to [facility]. 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 Follow up call scheduled with Cassandra Chandler. EMI Sanchez Vulnerability Researcher ising at Home documented in this encounter Plan of Treatment Upcoming Encounters Date Type Department Care Team (Late st Contact Info) Description 09/01/2023 12:00 PM EST Scheduled Telephone [facility], [facility] [address] [facility] [place] [address] Cassandra Gomez, [address] [place] [address] 09/07/2023 8:40 AM EST Office Visit Podiatry, [facility] [address] [place] [address] Janis Mg DPM [address] [place] [address] 09/29/2023 12:30 PM EDT Office Visit Sleep Disorders Ctr [facility] [address] [place] [phone] Neela Brunner CRNP [address] [place] [address] 09/30/2023 1:30 PM EDT Office Visit Cardiology, [facility] [address] [place] [address] Tess Riddle PA-C [address] [place] [address] Health Maintenance Due Date Last Done Comments Hepatitis B (1 of 3 - Risk 3-dose series) 1995 COVID-19 Vaccine ( season) 2023 01/23/2022, 01/23/2022, 10/27/2020, Additional history exists CKD PHOS USE SMARTSET 36885 04/08/2023 09/2 , 03/14/2021, 08/10/2017, Additional history [...] 03/24/2023, 05/27/20 17 CKD HGB USE SMARTSET 10040 08/31/202408/31, 08/31/2023, 08/26/2023, Additional history exists DTaP,Tdap,and [...] Documents on File Type Date Recorded Patient Head Porter Expl brittany POLST 08/11/2022 [place] [facility]-SUSTAINING T[facility]AT[facility] [place] [...] the patient have Health Care Power of Direct Care Counselor? No Code Status History Code Status Date Activated Date Inactivated Comments Full Code 07/23/2017 7:40 PM 07/26/2017 5:13 PM Question Answer Comments Discussion of Advance Direct alyssa occurred with: Not Discussed Healthcare Agents on File Name Relationship Healthcare Agent Relationshi p Communication Carlene Behlaurent Spouse Health Care Power of Attorn ey Care Teams Package Liner Relationship Specialty Start Date End Date Victoria Saldana DO [address] [place] [address] PCP - General Family Medicine 02/20/22 documented as of this encounter
--- OUTSIDE RECORDS SUMMARY | 2024-01-21 09:22 | External Medical Summary | Summary of Care ---
Author Name Unknown Organization [facility] Address [address] [facility] [place] [address] Phone [phone] Care Team Providers Care Hand Braille Transcriber Name Role Phone Victoria Saldana DO Primary Care Provider [phone] Reason for Visit * Reason Comments NEW PATIENT Encounter Details Date Type Department Care Team (Late st Contact Info) Description 09/07/2023 8:40 AM EST Office Visit Podiatry, [facility] [address] [place] [address] Janis Mg DPM [address] [place] [address] Amputation of toe of left foot ([facility])*; DM type 2 with diabetic peripheral neuropathy ([facility]); Chronic kidney disease, stage 3a ([facility]) Allergies Active Allergy Reactions Criticality Noted Date Comments Meperidine Psych complications 05/27/2017 Confused documented as of this encounter (statuses as of 09/07/2023) Medications Medication Sig Dispensed Refills Start Date End Date Status OMEGA-3 FISH OIL 1000 MG PO CAPS one daily by mouth 0 A ctive Aspirin 81 MG Tablet Take 1 Tablet by mouth in the morning. 0 Active Multiple Vitamins-Minerals (MULTIVITAL [place]) TABS Take by mouth. 0 Active Blood Glucose Monitoring Suppl (ONETOUCH VERIO) w/Device KITIndications:DM type 2 [facility] care [facility] [...] by mouth in the morning. (gets from addictions therapist). 0 10/09/2022 Active Metoprolol Succinate ER 50 [...] as of this encounter (statuses as of 09/07/2023) Active Problems Problem Noted Date Diagnosed Date [...] Self - Management Plan Other/Additional Comments: contact [facility] for directions Exacerbation Plan Other/Additional [...] pain despite this dosing, they should call [facility]. Open wound of second toe of left foot 10/11/2021 Last Assessment & Plan: 86-year-old diabetic male with open wounds on the 2nd and 3rd left toe needing home health wound care to ensure that he has proper healing. There is some noted drainage from these wounds. Plan: I will place a home health referral for wound care to [facility]. My recommendations are to cleanse the [...] home health referral for wound care to [facility] home health. My recommendations are to [...] as requested by family Was previously with [facility] 06/2022-02/2023 Falls frequently 10/01/2021 Last Assessment [...] goiter 09/11/2020 Coronary artery disease invo lving [place] coronary artery of [place] heart without angina pectoris 08/09/2019 Last Assessment & Plan: No angina -continue isosorbide, toprol, atorvastatin ASA, plavix Major depressive disorder, single episode, unspe cified 08/09/2019 Last Assessment & Plan: Stable continue citalopram Dilation of aorta 08/09/2019 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 t 08/09/2019 Last Assessment & Plan: Reported d/t hammer toe Ischemic cardiomyopathy 05/05/2018 Coronary artery disease invo lving [place] coronary artery of [place] heart with angina pectoris 05/05/2018 Overview: July [...] as of this encounter (statuses as of 09/07/2023) Resolved Problems Problem Noted Date Diagnosed Date [...] as of this encounter (statuses as of 09/07/2023) Immunizations Name Administration Dates Next Due COVID-19 mRNA, LNP-s, No Pre serve, 2-Dose Series (Fingerprint) 10/27/2020,10/06/2020 COVID-19, LNP-s, No Preserve , Ilan-sucrose, [...] as of this encounter Progress Notes * Steve Martinez, SKIP - 09/07/2023 8:53 AM EST PODIATRY CLINIC NOTE Name: Terrence Noyola Date: 09/07/2023 Time: 8:53 AM Subjective PRESENTING PROBLEM: Postop. Left 2nd digit amputation on 08/14/2023 HPI: Terrence Noyola is a 88 year old male who presents to clinic for postoperative follow up secondary to left 2nd digit amputation done on 08/14/2023. Patient presenting from nursing facility and does not remember the date of surgery as well as the reason and the surgeon who performed the surgery. Patient stated he would like to follow up here. Per chart check, patient underwent left 2nd digit amputation on 08/14/[address] Magdaleno secondary to osteomyelitis. Patient is accompanied by medical hospital sales from the facility who denies any local or systemic signs of infection in the last few days. Patient Active Problem List Diagnosis Code Adjustment disorder with depressed mood F43.21 Essential hypertension with goal blood pressure less than 140/90 I10 Dyslipidemia, goal LDL below 70 E78.5 Right bundle branch block I45.10 Diastolic dysfunction I51.89 History of prostate cancer Z85.46 S/P partial colectomy Z90.49 Paroxysmal atrial tachycardia I47.19 SunDown syndrome F05 History of malignant neoplasm of colon Z85.038 Iron deficiency anemia due to chronic blood loss D50.0 History of non-ST elevation myocardial infarction (NSTEMI) I25.2 DM type 2 with diabetic peripheral neuropathy (HCC) E11.42 Ischemic cardiomyopathy I25.5 Coronary artery disease involving [place] coronary artery of [place] heart with angina pectoris (HCC)I25.119 Obesity, Class I, BMI 30.0-34.9 (see actual BMI) E66.9 Coronary artery disease involving [place] coronary artery of [place] heart without angina pectoris I25.10 Major depressive disorder, single episode, unspecified F32.9 Dilation of aorta (HCC) I77.819 History of partial amputation of toe of left foot ([facility]) Z89.422 Current moderate episode of major depressive disorder without prior episode (HCC) F32.1 Nontoxic multinodular goiter E04.2 Chronic kidney disease, stage 3a ([facility]) N18.31 Fall at home W19.XXXA, Y92.009 PAF (paroxysmal atrial fibrillation) ([facility]) I48.0 Sinus node dysfunction (HCC) I49.5 Mixed Alzheimer's and vascular dementia ([facility]) G30.9, F01.50, F02.80 Falls frequently R29.6 Open wound of second toe of left foot S91.105A Open wound of third toe of left foot S91.105A Primary osteoarthritis of both knees M17.0 At risk for falls Z91.81 Late onset Alzheimer's disease without behavioral disturbance ([facility]) G30.1, F02.80 Current mild episode of major depressive disorder without prior episode ([facility]) F32.0 Aortic root dilatation ([facility]) I77.810 Systolic congestive heart failure ([facility]) I50.20 Recurrent major depressive disorder ([facility]) F33.9 Peripheral vascular disease ([facility]) I73.9 PAST MEDICAL HISTORY: Past Medical History: Diagnosis Date Current mild episode of major depressive disorder without prior episode ([facility]) 08/11/2022 DM type 2 (diabetes mellitus, type 2) ([facility]) DM type 2 with diabetic peripheral neuropathy ([facility]) 11/04/2017 Dyslipidemia, goal LDL below 70 HTN, goal below 140/90 Hypertrophic and atrophic condition of skin Skin Tags NSTEMI (non-ST elevated myocardial infarction) ([facility]) 08/04/2017 Paroxysmal atrial tachycardia 08/27/2017 Prostate cancer ([facility]) 2016 Right bundle branch block PAST SURGICAL HISTORY: Past Surgical History: Procedure Laterality Date COLONOSCOPY, DIAGNOSTIC (RECTUM) 07/01/2017 invasive adenocarcinoma, diverticulosis / inpt [facility] COLONOSCOPY, DIAGNOSTIC (RECTUM) N/A 07/29/2018 COLONOSCOPY FLEXIBLE PROXIMAL DIAGNOSTIC performed by Orlando Schulte MD at ENDOSCOPY [facility] COLONOSCOPY, DIAGNOSTIC (RECTUM) 08/02/2019 diverticulosis, repeat 2 yrs / [facility] DENTAL SURGERY PROCEDURE NEC age 56 removed teeth EGD, FLEXIBLE, DIAGNOSTIC 06/30/2017 normal/inpt [facility] LAPAROSCOPIC COLECTOMY PARTIAL WITH ANASTOMOSIS Right 07/22/2017 LAPAROSCOPIC PARTIAL COLECTOMY WITH ANASTOMOSIS performed by Orlando Schulte MD at OR [facility] RADIATION TREATMENT AID(S),INTERMED 2016 prostate REMOVE CATARACT, INSERT LENS PROSTH Left REMOVE CATARACT, INSERT LENS PROSTH Right REVISION OF TOTAL HIP JOINT SURGERY Right 2013 revision SHOULDER SURGERY PROCEDURE NEC Right 2016 SHOULDER SURGERY PROCEDURE NEC Left 2016 TOTAL HIP REPLACEMENT & PROSTHESIS Left in 50s TOTAL HIP REPLACEMENT & PROSTHESIS Right early 60s FAMILY HISTORY: Family History Problem Relation Age of Onset Other (Other) Father pt denies hx of skin cancer for parents SOCIAL HISTORY: Social History Tobacco Use Smoking status: Never Passive exposure: Past Smokeless tobacco: Former Types: Chew Vaping Use Vaping Use: Never used Substance Use Topics Alcohol use: Yes Comment: once in awhile Drug use: No CURRENT MEDICATIONS: Note that discontinued continue to display for 24 hours. Ordered medications to be given in the future also display. Current Outpatient Medications Medication Sig Dispense Refill OMEGA-3 FISH OIL 1000 MG PO CAPS one daily by mouth Aspirin 81 MG Tablet Take 1 Tablet by mouth in the morning. Multiple Vitamins-Minerals (MULTIVITAL [place]) TABS Take by mouth. Blood Glucose Monitoring Suppl (Yebol) w/Device KIT Use up to 4 times a day E11.9 1 Kit 0 Glucose Blood ([employer]) STRP Use up to 4 times a day E11.9 300 Strip 3 Misc. Devices Please custom fit/dispense one pair diabetic accommodative shoes with 3 pairs heat molded accommodative inserts DM with neuropathy 1 Each 0 Loperamide HCl 2 MG Oral Capsule (Imodium) Take 1 Capsule by mouth in the morning. Meclizine HCl 25 MG Oral Tablet (Antivert) Take by mouth 1 Tablet daily as needed for Dizziness. 90Tablet 0 Melatonin 10 MG Oral Tablet Take 1 Tablet by mouth at bedtime. TuckerNuck Delica Lancets 30G Use to test blood sugars once daily 100 Each 3 Biotin 5 MG Oral Capsule Take 1 Capsule by mouth in the morning. 30 Capsule 0 Empagliflozin 25 MG Oral Tablet Take 1 Tablet by mouth in the morning. (gets from addictions therapist). Metoprolol Succinate ER 50 MG Oral Tablet Extended Release 24 Hour (toPROL XL) TAKE ONE TABLET BY MOUTH EVERY MORNING 100 Tablet 3 Gabapentin 100 MG Oral Capsule (Neurontin) TAKE ONE CAPSULE BY MOUTH TWICE A DAY 180 Capsule 2 metFORMIN HCl ER 500 MG Oral Tablet Extended Release 24 Hour (Glucophage XR) TAKE ONE TABLET BY MOUTH TWICE A DAY 200 Tablet 3 Isosorbide Mononitrate ER 30 MG Oral Tablet Extended Release 24 Hour (Imdur) TAKE ONE TABLET BY MOUTH EVERY DAY 90 Tablet 3 Clopidogrel Bisulfate 75 MG Oral Tablet (pLAVix) TAKE ONE TABLET BY MOUTH EVERY DAY 90 Tablet 3 Donepezil HCl 10 MG Oral Tablet (Aricept) TAKE ONE TABLET BY MOUTH EVERY DAY WITH LARGEST MEAL OF THE DAY 90 Tablet 1 Citalopram Hydrobromide 20 MG Oral Tablet (CeleXA) TAKE ONE TABLET BY MOUTH EVERY DAY IN THE MORNING 90 Tablet 2 oxygen IN GAS Administer 2 L/min(Oxygen) into nostril as needed for Other (with activity). 1 Each 0 Semaglutide 7 MG Oral Tablet (Rybelsus) Take 7 mg by mouth daily first thing in the morning. 30 Tablet 0 Atorvastatin Calcium 40 MG Oral Tablet (Lipitor) TAKE ONE TABLET BY MOUTH AT BEDTIME 100 Tablet 3 No current facility-administered medications for this visit. ALLERGIES: Demerol hcl [meperidine] REVIEW OF SYSTEMS: A complete review of systems was negative unless otherwise stated in the HPI. Objective PHYSICAL EXAMINATION: Most Recent Vital Signs: There were no vitals taken for this visit. LOWER EXTREMITY PHYSICAL EXAM: VASC: DP and PT pulses palpable to left lower extremity. Capillary refill time less than 3 seconds except left 2nd digit secondary to amputation. NEURO: Diminished protective and light touch sensation intact to the left lower extremity. Gross motor function manual muscle testing within normal limits. ORTHO: Ankle and digital range of motion intact to left lower extremity with negative pain. Negative pain on palpation to proximal left calf muscle. DERM: Skin color, turgor, and texture are unremarkable. Superficial scabs noted to the site of [id number] digit amputation. No wound dehiscence hematoma or local signs of infection needed. No purulence, bogginess, fluctuance or crepitus noted. No cellulitis noted. LABS/MICRODATA: Labs reviewed as indicated below: n/a IMAGING/STUDIES: Not indicated IMPRESSION and PLAN: Terrence Noyola is a 88 year old male who presents to clinic for postoperative follow up secondary to left 2nd digit amputation done on 08/14/[address] Magdaleno secondary to left 2nd digit osteomyelitis. Patient was seen and evaluated Podiatry today. Patient does not appear to be in distress. Surgical site appears to be healing well with no signs of dehiscence, hematoma or local signs of infection noted. No signs of sutures present. From Podiatry standpoint, surgical site has been healing well with no signs of complications. Patient to follow up as needed. Pt was evaluated and treated by Dr. Mg with all questions and concerns addressed. Clinical exam performed, as above. Vitals, labs, and imaging reviewed, as above. Patient will follow up in clinic as needed. This note was completed using the dictation program Fluency Direct. As such, there may be misspellings, word substitutions, or other variations that should not change the essence of the clinical content of this encounter note. Necessary attempts were made to correct dictation errors. If there is need for further clarification, please direct questions to the author. I have discussed the patient's management with the medical trainee and agree with the note. Please refer to the documented findings and plan of care. This patient's visit today consisted of an evaluation. I was present and confirmed the findings of the history and exam. Janis Mg DPM Referring: Victoria Saldana DO documented in this encounter Nursing Notes * Jade Garner LPN - 09/07/2023 8:37 AM EST Pt here for a f/u on left second toe amp. He is diabetic. Presents in post o shoe documented in this encounter Plan of Treatment Upcoming Encounters Date Type Department Care Team (Late st Contact Info) Description 09/11/2023 10:45 AM EST Scheduled Telephone [facility], [facility] [address] [facility] [place] [address] Cassandra Gomez CM [address] [facility] [place] [address] 09/29/2023 12:30 PM EDT Office Visit Sleep Disorders Ctr [facility] [address] [facility] [place] [phone] Neela Brunner CRNP [address] [facility] [place] [address] 09/30/2023 1:30 PM EDT Office Visit Cardiology, [facility] [place] [address] Tess Riddle PA-C [address] [place] [address] [place] [address] Health Maintenance Due Date Last Done Comments COVID-19 Vaccine ( season) 2023 01/23/2022, 01/23/2022, 10/27/2020, Additional history exists CKD PHOS USE SMARTSET 02791 04/08/202303/21, 03/14/2021, 08/10/2017, Additional history exists HbA1c 06/11/2023 12/09/2022, 09/18, 04/08/2022, Additional history exists Diabetic Foot Exam 08/11/2023 08/11/2022, 0 11/01/2021, 01/02/2021, Additional history exists Diabetic Eye Exam 10/03/2023 10/02/2022, , 04/29/2021, Additional history exists Albumin/Creatinine Ratio 10/10/2023 023, 12/26/2021, 03/14/2021, Additional history exists B-12 12/10/2023 12/09/2022, 04/0 12/2021, 09/14/2020, Additional history exists Depression Screening 03/24/2024 03/24/2023, 05/27/20 17 CKD HGB USE SMARTSET 09641 08/31/202408/31, 08/31/2023, 08/26/2023, Additional history exists DTaP,Tdap,and [...] as of this encounter Visit Diagnoses Diagnosis Amputation of toe of left foot (HCC)- Primary DM type 2 with diabetic peripheral neuropathy (HCC) Type II or unspecified type diabetes mellitus with neurological manifestations, not stated as uncontrolled Chronic kidney disease, stage 3a (HCC) documented in this encounter Additional Health Concerns Infection Onset Date Last Indicated Resolved Time 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 No Does the patient have Health Care Power of Mental Health Specialist? No Code Status History Code Status Date Activated Date Inactivated Comments Full Code 07/23/2017 7:40 PM 07/26/2017 5:13 PM Question Answer Comments Discussion of Advance Direct alyssa occurred with: Not Discussed Healthcare Agents on File Name Relationship Healthcare Agent Relationshi p Communication Carlene Behrer Spouse Health Care Power of Attorn ey Care Teams Hand Braille Transcriber Relationship Specialty Start Date End Date Victoria Saldana DO [address] [place] [address] PCP - General Family Medicine 02/20/22 documented as of this encounter
--- OUTSIDE RECORDS SUMMARY | 2024-01-21 09:22 | External Medical Summary | Summary of Care ---
Author Name Unknown Organization [facility] Address [address] [facility] [place] [address] Phone [phone] Care Team Providers Care Anesthesiologist And Critical Care Name Role Phone TyrelVictoria willingham Primary Care Provider [phone] Encounter Details Date Type Department Care Team (Late st Contact Info) Description 09/08/2023 Population Health External Data Unspecified Department Allergies [...] the morning. 0 Active Multiple Vitamins-Minerals (MULTIVITAL NATIVE) TABS Take by mouth. 0 Active Blood [...] hemoglobin A1c goal of less than 7.0% ([facility]),History of amputation of lesser toe of [...] hemoglobin A1c goal of less than 8.0% ([facility]),DM type 2 with diabetic peripheral neuropathy ([facility]) Take 1 Tablet by mouth in the morning. (gets from non destructive testing scientist). 0 10/09/2022 Active Metoprolol Succinate ER [...] - Management Plan Other/Additional Comments: contact [facility] for directions Exacerbation Plan Other/Additional Comments: [...] despite this dosing, they should call [facility]. Open wound of second toe of left foot 10/11/2021 Last Assessment & Plan: 86-year-old diabetic male with open wounds on the 2nd and 3rd left toe needing home health wound care to ensure that he has proper healing. There is some noted drainage from these wounds. Plan: I will place a home health referral for wound care to [facility] home health. My recommendations are to [...] home health referral for wound care to [facility] home health. My recommendations are to [...] goiter 09/11/2020 Coronary artery disease invo [place] coronary artery of [place] heart without angina pectoris 08/09/2019 Last Assessment & Plan: No angina -continue isosorbide, toprol, atorvastatin ASA, plavix Major depressive disorder, single episode, unspe cified 08/09/2019 Last Assessment & Plan: Stable continue citalopram Dilation of aorta 08/09/2019 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 t 08/09/2019 Last Assessment & Plan: Reported d/t hammer toe Ischemic cardiomyopathy 05/05/2018 Coronary artery disease invo [place] coronary artery of [place] heart with angina pectoris 05/05/2018 Overview: July [...] AM EST Scheduled Telephone [facility] [place] [facility] [address] [facility] [place] [address] Cassandra Gomez, [address] [place] [address] 09/29/2023 12:30 PM EDT Office Visit [facility] Disorders Ctr [facility] [address] [facility] [place] [phone] Neela Brunner CRNP [address] [place] [address] 09/30/2023 1:30 PM EDT Office Visit Cardiology, [facility] [address] [place] [address] Tess Riddle PA-C [address] [place] [id number] Health Maintenance Due Date Last Done Comments COVID-19 Vaccine ( season) 2023 01/23/2022, 01/23/2022, 10/27/2020, Additional history exists CKD PHOS USE SMARTSET 48639 04/08/202303/21, 03/14/2021, 08/10/2017, Additional history exists HbA1c 06/11/2023 12/09/2022, 09/18, 04/08/2022, Additional history exists Diabetic Foot Exam 08/11/2023 08/11/2022, 0 11/01/2021, 01/02/2021, Additional history exists Diabetic Eye Exam 10/03/2023 10/02/2022, , 04/29/2021, Additional history exists Albumin/Creatinine Ratio 10/10/2023 023, 12/26/2021, 03/14/2021, Additional history exists B-12 12/10/2023 12/09/2022, 04/0 12/2021, 09/14/2020, Additional history exists Depression Screening 03/24/2024 03/24/2023, 05/27/20 17 CKD HGB USE SMARTSET 90688 08/31/202408/31, 08/31/2023, 08/26/2023, Additional history exists DTaP,Tdap,and [...] Documents on File Type Date Recorded Patient Prepared Foods Supervisor Expl anation POLST 08/11/2022 [place] [facility] FOR [facility]SUSTAINING TREATMENT [place] DEPT OF HEALTH Advance Directives and Living Will 06/30/2014 ADVANCE DIRECTIVE Latest Code Status on File Code Status Date Activated Date Inactivated Comments Full Code 08/03/2017 11:04 PM 08/10/2017 6:40 PM Question Answer Comments Discussion of Advance Direct alyssa occurred with: Not Discussed Does the patient have a Living Will? No Does the patient have Health Care Power of [place]? No Code Status History Code Status Date Activated Date Inactivated Comments Full Code 07/23/2017 7:40 PM 07/26/2017 5:13 PM Question Answer Comments Discussion of Advance Direct alyssa occurred with: Not Discussed Healthcare Agents on File Name Relationship Healthcare Agent Relationshi p Communication Carlene Behrer Spouse Health Care Power of Attorn ey Care Teams Anesthesiologist And Critical Care Relationship Specialty Start Date End Date Victoria Saldana DO [address] [place] [address] PCP - General Family Medicine 02/20/22 documented as of this encounter
--- OUTSIDE RECORDS SUMMARY | 2024-01-21 09:22 | External Medical Summary | Summary of Care ---
Author Name Unknown Organization [facility] Address [address] [place] [address] Phone [phone] Care Team Providers Care Pipeline Dispatch Operator Name Role Phone Shana Victoria Worthington DO Primary Care Provider + [phone] Reason for Visit * Reason Onset Date Comments [facility]: Maintenance 09/11/2023 Encounter Details Date Type Department Care Team (Late st Contact Info) Description 09/11/2023 10:45 AM EST Scheduled Telephone [facility], [facility] [address] [place] [address] [facility] [address] [place] [address] Allergies Active Allergy Reactions Criticality Noted Date Comments Meperidine Psych complications 05/27/2017 Confused documented as of this encounter (statuses as of 09/11/2023) Medications Medication Sig Dispensed Refills Start Date End Date Status OMEGA-3 FISH OIL 1000 MG PO CAPS one daily by mouth 0 A ctive Aspirin 81 MG Tablet Take 1 Tablet by mouth in the morning. 0 Active Multiple Vitamins-Minerals (MULTIVITAL [place]) TABS Take by mouth. 0 Active Blood Glucose Monitoring Suppl (ONETOUCH VERIO) w/Device KITIndications:DM type 2 nursing care encounter (HCC),Type 2 diabetes mellitus with hemoglobin A1c goal of less than 7.0% ([facility]),DM type 2 with diabetic peripheral neuropathy ([facility]) Use up to 4 times a day [...] by mouth in the morning. (gets from graves registration specialist). 0 10/09/2022 Active Metoprolol Succinate ER 50 [...] as of this encounter (statuses as of 09/11/2023) Active Problems Problem Noted Date Diagnosed Date [...] Self - Management Plan Other/Additional Comments: contact [facility] for directions Exacerbation Plan Other/Additional Comments: [...] pain despite this dosing, they should call [facility]. Open wound of second toe of left foot 10/11/2021 Last Assessment & Plan: 86-year-old diabetic male with open wounds on the 2nd and 3rd left toe needing home health wound care to ensure that he has proper healing. There is some noted drainage from these wounds. Plan: I will place a home health referral for wound care to [facility]. My recommendations are to cleanse the wounds [...] home health referral for wound care to [facility]. 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 08/09/2019 Last Assessment & Plan: Reported d/t hammer toe Ischemic cardiomyopathy 05/05/2018 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 PT currently at [facility]. Was issued a LCD but filed appeal yesterday. Will f/u Thursday for appeal status Cassandra Gomez Business Performance Analyst [facility] [email or web address] documented in this encounter Plan of Treatment Upcoming Encounters Date Type Department Care Team (Late st Contact Info) Description 09/14/2023 1:30 PM EST Scheduled Telephone [facility], [facility] [address] [facility] [place] [address] Cassandra Gomez CM [address] [place] [address] 09/29/2023 12:30 PM EDT Office Visit Sleep [facility] [address] [facility] [place] [phone] Neela Brunner CRNP [address] [place] [address] 09/30/2023 1:30 PM EDT Office Visit Cardiology, [facility] [address] [facility] [place] [address] Tess Riddle PA-C [address] [place] [address] Health Maintenance Due Date Last Done Comments COVID-19 Vaccine ( season) 2023 01/23/2022, 01/23/2022, 10/27/2020, Additional history exists CKD PHOS USE SMARTSET 25076 04/08/2023 09/, 03/14/2021, 08/10/2017, Additional history exists HbA1c 06/11/2023 12/09/2022, 09/18, 04/08/2022, Additional history exists Diabetic Foot Exam 08/11/2023 08/11/2022, 0 11/01/2021, 01/02/2021, Additional history exists Diabetic Eye Exam 10/03/2023 10/02/2022, , 04/29/2021, Additional history exists Albumin/Creatinine Ratio 10/10/2023 023, 12/26/2021, 03/14/2021, Additional history exists B-12 12/10/2023 12/09/2022, 04/0 12/2021, 09/14/2020, Additional history exists Depression Screening 03/24/2024 03/24/2023, 05/27/20 17 CKD HGB USE SMARTSET 80855 08/31/202408/31, 08/31/2023, 08/26/2023, Additional history exists DTaP,Tdap,and [...] Documents on File Type Date Recorded Patient Tool Lathe Operator Expl anation POL 08/11/2022 [place] [facility] [place] OF [place] Advance Directives and Living Will 06/30/2014 ADVANCE DIRECTIVE Latest Code Status on File Code Status Date Activated Date Inactivated Comments Full Code 08/03/2017 11:04 PM 08/10/2017 6:40 PM Question Answer Comments Discussion of Advance Direct alyssa occurred with: Not Discussed Does the patient have a Living Will? No Does the patient have Health Care Power of Compounder Helper? No Code Status History Code Status Date Activated Date Inactivated Comments Full Code 07/23/2017 7:40 PM 07/26/2017 5:13 PM Question Answer Comments Discussion of Advance Direct alyssa occurred with: Not Discussed Healthcare Agents on File Name Relationship Healthcare Agent Relationshi p Communication Carlene Behrer Spouse Health Care Power of Attorn ey Care Teams Pipeline Dispatch Operator Relationship Specialty Start Date End Date Victoria Saldana DO [address] [facility] [address] P[facility] - General Family Medicine 02/20/22 documented as of this encounter
--- OUTSIDE RECORDS SUMMARY | 2024-01-21 09:22 | External Medical Summary | Summary of Care ---
Author Name Unknown Organization [facility] Address [address] [facility] [place] [address] Phone [phone] Care Team Providers Care Field Collector Name Role Phone TyrelVictoria willingham Primary Care Provider + [phone] Reason for Visit * Reason Comments Fall * Auth/Cert Specialty Diagnoses / Procedures Referred By Contac t Referred To Contact Referral ID Status Reason Start Date Expiration Date Visits Re quested Visits Authorized [id number] Encounter Details Date Type Department Care Team (Late st Contact Info) Description 08/31/2023 4:26 PM EST - 08/31/2023 8:59 PM EST Emergency [facility] Emergency Department ([facility]) [address] [place] [address] Eduardo Angeles MD [address] [place], [place] [id number] Fall, initial encounter (Primary Dx); Trauma; Skin tear of left elbow without complication, initial encounter Discharge Disposition: SNF Allergies Active Allergy Reactions Criticality Noted Date Comments Meperidine Psych complications 05/27/2017 Confused documented as of this encounter (statuses as of 09/01/2023) Medications Medication Sig Dispensed Refills Start Date End Date Status OMEGA-3 FISH OIL 1000 MG PO CAPS one daily by mouth 0 A ctive Aspirin 81 MG Tablet Take 1 Tablet by mouth in the morning. 0 Active Multiple Vitamins-Minerals (MULTIVITAL FALSE PASS) TABS Take by mouth. 0 Active Blood Glucose Monitoring Suppl (afterBOT VERIO) w/Device KITIndications:DM type 2 nursing care [...] by mouth in the morning. 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 0 10/09/2022 Active Metoprolol Succinate ER [...] Self - Management Plan Other/Additional Comments: contact [facility] for directions Exacerbation Plan Other/Additional [...] pain despite this dosing, they should call [facility]. Open wound of second toe [...] home health referral for wound care to [facility]. My recommendations are [...] requested by family Was previously with 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 08/09/2019 Last Assessment & Plan: Reported d/t hammer toe Ischemic cardiomyopathy 05/05/2018 Coronary artery disease invo lving [place] coronary artery of [place] heart with angina pectoris 05/05/2018 Overview: July [...] Sign Reading Time Taken Comments Blood Pressure 137/83 08/31/2023 8:27 PM EST Pulse 62 08/31/2023 8:27 PM EST Temperature 36.1 C (97 F) 08/31/2023 4:31 PM EST Respiratory Rate 20 08/31/2023 8:27 PM EST Oxygen Saturation 100% 08/31/2023 6:30 PM EST Inhaled Oxygen Concentration - - Weight [...] No 08/04/2017 documented as of this encounter Discharge Instructions * Discharge Instructions* Eduardo Angeles MD - 08/31/2023 8:15 PM EST Dressing changes daily until the wound is healed on his left arm. No changes in his other medication There is also a skin tear in the rectal area which will need to be treated like a bedsore documented in this encounter ED Notes * Eduardo Angeles MD - 08/31/2023 4:32 PM EST HISTORY OF PRESENT ILLNESS Terrence Noyola is a 88 year old male who presents to the ED for evaluation of Fall. The patient was seen at 08/31/23 1631. Alert type: Adult Trauma - Level 1 Trauma Evaluation: Pre-hospital notification: Yes Mechanism of injury: fall Time since injury: 1 hour Arrival method: Ambulance Primary survey: airway normal, breath sounds normal, equal chest rise, pulses present in all extremities, no active bleeding, no focal deficit, alert and oriented, fully exposed and clothing removed Cervical spine assessment: C-collar placed by EMS Chest x-ray preliminary findings: Negative Pelvis x-ray preliminary findings: Negative E-FAST findings: Not indicated Trauma Mechanism of injury: Fall Last tetanus shot within 5 years Pt arrives via [facility] from [facility] after ground level fall. Skin tears to left arm. Nursing staff had left arm wrapped prior to EMS arrival. C-collar placed by EMS. Nursing staff reports that pt is only oriented to self. Pt oriented to person, place, and time for EMS. The patient's allergies, past history, and medications were reviewed. PHYSICAL EXAM Initial Vitals (see all): BP 133/66 | Pulse 72 | Resp 24 | Temp 97 | O2 95 %, Room Air, None | Weight 105.58 kg | Height 177.8 cm | BMI 33.4 kg/m2 Initial Pain Assessment (see all): 0 (no pain)/10 ([facility] Adult Scale 0-10) Physical Exam Constitutional: Interventions: Cervical collar in place. General: Alert. appropriate for age. no acute distress. nontoxic. Skin: Warm, dry. Head: Atraumatic. Neck: trachea midline. No distended neck veins nontender Eye: Normal conjunctiva. PERRL, EOMI, Ears, nose, mouth and throat: airway patent. No inflammation Cardiovascular: Normal peripheral perfusion. Irregular rhythm without murmurs or extra sounds. No distended neck veins. . Respiratory: no respiratory distress. The lungs are clear to auscultation without rales wheezes or rhonchi. Breath sounds equal and present bilaterally. Gastrointestinal: Non distended. Abdomen is soft and nontender. No guarding. No rebound. No organomegaly. Rectal exam revealed evidence for erythema to the sacral area. There is an open wound approximately1 x 1 cm which is more consistent with a skin tear from today's fall then a bedsore Musculoskeletal: This patient has skin tears to the left arm. There is a 2 cm x 2 cm skin tear on the extensor surface of the forearm. There are multiple skin tears to the extensor surface of the elbow. These range from 1-2 cm in size and there are 3 of them. He has old wounds consistent with healing abrasions to the right woodard. He has old wounds consistent with abrasions to his left woodard. 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 There is a surgical dressing in place which is clean and dry.. Neurological: No focal neurological deficit observed. alert. Cranial nerves 2-12 are intact. Line Mechanic strength equal. [id number] intact. Normal motor and sensory exam to arms and legs. Knee jerk reflexes equal and +2. Psychiatric: Cooperative. Differential diagnosis Fall on thinners, trauma evaluation, injuries appear to be limited to skin tears to the left forearm and the buttocks area PROCEDURES AND TREATMENTS ED Orders | ED Results MEDICAL DECISION MAKING Nursing notes and vital signs were reviewed. ED Course as of 08/31/232016Aug 31, 2023 1721 EKG reviewed by ER physician. 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 The most recent EKG is dated 03/12/2020 looks generally similar [DR] 1999 Troponin T, High Sensitivity(!) Repeat troponin stable [DR] 2001 CT Chest with IV contrast No acute injury [DR] 2001 CT Abd/Pelvis with IV contrast - without oral contrast No acute injury [DR] 2001 CT Head/Brain without contrast No acute injury [DR] 2001 CT C Spine without contrast No acute injury [DR] 2003 Patient remains alert. He appears stable for return to the custodial setting [DR] ED Course User Index [DR] Eduardo Angeles MD Amount and/or Complexity of Data Reviewed Labs: ordered. Decision-making details documented in ED Course. Radiology: ordered. Decision-making details documented in ED Course. ECG/medicine tests: ordered. Risk Prescription drug management. Clinical Impressions Trauma Fall, initial encounter Skin tear of left elbow without complication, initial encounter Disposition Discharged. The patient's condition at disposition was: stable. Eduardo Angeles * Khushboo Hartley RN - 08/31/2023 4:26 PM EST Pt arrives via [facility] EMS from [place] after ground level fall. Skin tears to left arm. Nursing staff had left arm wrapped prior to EMS arrival. C- collar placed by EMS. Nursing staff reports that pt is only oriented to self. Pt oriented to person, place, and time for EMS. documented in this encounter Miscellaneous Notes * ED Paperhanger Apprentice Note - Jonelle Bule RN - 08/31/2023 8:58 PM EST [place] [facility] [place] staff made aware of pt's return. Paperwork sent with MADDIE. * ED Paperhanger Apprentice Note - Jonelle Blue RN - 08/31/2023 8:23 PM EST Dressings applied to bilateral lower legs, sacrum, and left arm. Discharge instructions provided. * Pt Handout (on AVS) - Eduardo Angeles MD - 08/31/2023 8:15 PM EST [id number] Skin Tear (Skin Avulsion) A skin tear (skin avulsion) is a tearing of the top layer of skin. This commonly happens after a fall or other injury. This is especially true if you have thinner skin, are an older adult, or have taken steroids for long periods of time. Home care These guidelines will help you care for your wound at home: Keep the wound clean and dry for the first 24 to 48 hours, or as your healthcare provider advises. If there is a dressing or bandage, change it when it gets wet or dirty. Otherwise, leave it on for the first 24 hours, then change it once a day or as often as the healthcare provider says. If stitches or mira were used, check the wound every day. After taking off the dressing, wash the area gently with soap and water. Clean as close to the stitches as you can. Don't wash or rub the stitches directly. After 3 days you can keep the bandages off the wound, unless told otherwise, or there is continued drainage. Allow the wound to be open to the air. Keep a thin layer of antibiotic ointment on the cut. This will keep the wound clean, make it easier to remove the stitches, and reduce scarring. If your wound is oozing, put ointment and a nonstick dressing over it. Then, reapply the bandageor dressing as you were told. Be careful not to let the bandage stick to the oozing wound. More tears can occur when trying to remove a bandage that is stuck on. You can shower as usual after the first 24 hours. But don't soak the area in water (no baths or swimming) until the stitches or mira are taken out and your provider says it's OK. If surgical tape was used, keep the area clean and dry. If it becomes wet, blot it dry with a clean towel. Be very careful when removing tape or other dressings, or you may cause more skin tears. Soakingthe dressing in the shower for a few minutes will often loosen it and make it easier to remove. If skin glue was used, don't put any creams, lotions, or antibiotic ointments on it. These can dissolve the glue. Usually, the glue will flake off in about 5 to 10 days by itself. Try to resist picking it off before that so the wound doesn't open up. When it gets wet, pat it dry. Here is some information about medicine: You may use [id number] medicine, such as acetaminophen, naproxen, or ibuprofen, to controlpain, unless another pain medicine was given. Talk with your healthcare provider before using thesemedicines if you have chronic liver or kidney disease. Also talk with your provider if you've ever had a stomach ulcer or digestive tract bleeding. If you were given antibiotics, take them until they're all used up. It's important to finish theantibiotics even if the wound looks better. This will help to make sure that the infection has cleared. Follow-up care Follow up with your healthcare provider, or as advised. Watch for any signs of infection, such as increasing redness, swelling, or pus coming out of thewound. If this happens, don't wait for your scheduled visit. Instead see your provider right away. Stitches or mira are usually taken out in 5 to 14 days. This varies depending on what part ofyour body they're on, and the type of wound. Your provider will tell you how long stitches or mira should be left in. If surgical tape was used, it's usually best to leave it on until it falls off. Trying to removethe tape may cause more skin tears. Left alone, the surgical tape will fall off on its own over time. As mentioned above, skin glue will flake off by itself in 5 to 10 days. So you don't need to pull it off. If any X-rays were done, you'll be told of any changes that may affect your care. When to get medical advice Call your healthcare provider right away if any of these occur: Increasing pain in the wound Redness, swelling, or pus coming from the wound Fever of 100.4F (38C) or higher, or as directed by your provider Stitches or mira come apart or fall out before your next appointment, and the wound edges look as if they will reopen Surgical tape closures fall off before 7 days, and the wound edges look as if they will reopen Bleeding not controlled by direct pressure Last Reviewed Date: 11/17/202119999722-3784 The [employer]. All rights reserved. This information is not intended as a substitute for professional medical care. Always follow your healthcare professional's instructions. * ED Paperhanger Apprentice Note - Ace Perez RN - 08/31/2023 7:35 PM EST Patients called in for an update, if discharged back to the home please arrange ambulance/van delivery. * ED Paperhanger Apprentice Note - Elliott Castro TECH - 08/31/2023 5:15 PM EST 1700: EKG completion delayed as pt was at imaging documented in this encounter Plan of Treatment Upcoming Encounters Date Type Department Care Team (Late st Contact Info) Description 09/01/2023 9:15 AM EST Scheduled Telephone [facility], [facility] [address] [facility] [place] [address] Coordinator, [facility] [address] [place] [address] 09/01/2023 12:00 PM EST Scheduled Telephone [facility], [facility] [address] [facility] [place] [address] Cassandra Gomez, [address] [place] [address] 09/07/2023 8:40 AM EST Office Visit Podiatry, [facility] [address] [place] [address] Janis Mg, [address] [facility] [place] [address] 09/29/2023 12:30 PM EDT Office Visit [facility] [address] [facility] [place] [phone] Neela Brunner CRNP [address] [facility] [place] [address] 09/30/2023 1:30 PM EDT Office Visit Cardiology, [facility] [address] [facility] [place] [address] Tess Riddle PA-C [address] [facility] [place] [address] Scheduled Orders Name Type Priority Associated Diagnoses Orde r Schedule TOXICOLOGY, URINESCREEN W/ CONFIRMATION Lab STAT Perform Now for 1 Occurrences starting 08/31/2023 until 08/31/2023 URINALYSIS, REFLEX TO MICROSCOPIC Lab STAT One Time for 1 Occurrences starting 08/31/2023 until 08/31/2023 Health Maintenance Due Date Last Done Comments Hepatitis B (1 of 3 - Risk 3-dose series) 1995 COVID-19 Vaccine ( season) 2023 01/23/2022, 01/23/2022, 10/27/2020, Additional history exists CKD PHOS USE SMARTSET 79034 04/08/202303/21, 03/14/2021, 08/10/2017, Additional history exists HbA1c 06/11/2023 12/09/2022, 03/2 09/2022, 04/08/2022, Additional history exists Diabetic Foot Exam 08/11/2023 08/11/2022, 0 11/01/2021, 01/02/2021, Additional history exists Diabetic Eye Exam 10/03/2023 10/02/2022, , 04/29/2021, Additional history exists Albumin/Creatinine Ratio 10/10/2023 023, 12/26/2021, 03/14/2021, Additional history exists B-12 12/10/2023 12/09/2022, 04/0 12/2021, 09/14/2020, Additional history exists Depression Screening 03/24/2024 03/24/2023, 05/27/20 17 CKD HGB USE SMARTSET 52693 08/31/202408/31, 08/31/2023, 08/26/2023, Additional history exists DTaP,Tdap,and [...] Procedure Name Priority Date/Time Associated Diagnosis Comments TROPONIN T, HIGH SENSITIVITY STAT 08/31/2023 7:[address] ABD/PELVIS W IV CONTRAST - WO ORAL CONTRAST STAT 08/31/2023 5:[address] C SPINE WO CONTRAST STAT 5:[address] CHEST W CONTRAST STAT 08/31/2023 5 [address] HEAD/BRAIN WO CONTRAST STAT 08/31/2023 5:13 PM EST XR CHEST 1 VIEW STAT 08/31/2023 4:40 PM EST XR PELVIS AP VIEW STAT 08/31/2023 4:4 0 PM EST DIFFERENTIAL, AUTOMATED STAT 08/31/2023 4:39 PM EST TROPONIN T, HIGH SENSITIVITY STAT 08/31/2023 4:39 PM EST COMPREHENSIVE METABOLIC PANEL STAT 08/31/2023 4:39 PM EST CBC STAT 08/31/2023 4:39 PM EST PT INR STAT 08/31/2023 4:39 PM EST LACTATE,WHOLE BLOOD STAT 08/31/2023 4 :39 PM EST ETHANOL, MEDICAL STAT 08/31/2023 4:39 PM EST CBC STAT 08/31/2023 4:39 PM EST documented in this encounter Results * (ABNORMAL) TROPONIN T, HIGH SENSITIVITY (08/31/2023 7:01 PM EST) Troponin T, High Sensitivity 55(H) <=22 ng/L 08/31/2023 7:36 PM EST LABORATORY GL Blood Venous blood specimen / Unknown Venipuncture / Unknown 08/31/2023 7:01 PM EST 08/31/2023 7:14 PM EST Eduardo Angeles MD LAB BLOOD ORDERABLES LABORATORY [place] [id number] * CT ABD/PELVIS W IV CONTRAST - WO ORAL CONTRAST (08/31/2023 5:13 PM EST) Anatomical Region Laterality Modality Body, Abdomen, Pelvis Computed T omography 08/31/2023 4:56 PM EST Impressions 08/31/2023 5:58 PM EST IMPRESSION: 1. No acute intrathoracic injuries. 2. Bibasilar atelectasis. 3. Atherosclerotic vascular disease and coronary atherosclerosis. 4. 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 PROCEDURE INFORMATION: Exam: CT Abdomen And Pelvis With Contrast Exam date and time: 08/31/2023 4:56 PM Age: 88 years old Clinical indication: Injury or trauma; Fall; Generalized; Blunt trauma (contusions or hematomas); Additional info: Significant trauma with possible severe intraabdominal injury or abdominal pain TECHNIQUE: Imaging protocol: Computed tomography of the abdomen and pelvis with contrast. Radiation optimization: All CT scans at this facility use at least one of these dose optimization techniques: automated exposure control; mA and/or kV adjustment per patient size (includes targeted exams where dose is matched to clinical indication); or iterative reconstruction. Contrast material: OPTIRAY 320; Contrast volume: 100 ml; Contrast route: INTRAVENOUS (IV); COMPARISON: CT CAP WITH(Adult) 12/30/2021 11:18 AM FINDINGS: Liver: Normal. No mass. Gallbladder and bile ducts: Normal. No calcified stones. No ductal dilation. Pancreas: Normal. No ductal dilation. Spleen: Normal. No splenomegaly. Adrenal glands: Normal. No mass. Kidneys and ureters: Normal. No hydronephrosis. Stomach and bowel: No bowel obstruction. Scattered diverticulosis of the colon without diverticulitis. No bowel wall thickening. Postsurgical changes from right hemicolectomy. . Appendix: No evidence of appendicitis. Intraperitoneal space: Unremarkable. No free air. No significant fluid collection. Vasculature: Atherosclerosis of the abdominal aorta and iliac arteries without aneurysm. Lymph nodes: Unremarkable. No enlarged lymph nodes. Urinary bladder: Unremarkable as visualized. Reproductive: Unremarkable as visualized. Bones/joints: No acute fractures. 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 Heterotrophic calcifications around the right hip. There is diffuse osteopenia Soft tissues: Unremarkable. IMPRESSION: 1. No acute intra-abdominal or pelvic injuries. 2. Colonic diverticulosis without diverticulitis. 3. Postsurgical changes of right hemicolectomy. THIS DOCUMENT HAS BEEN ELECTRONICALLY SIGNED BY SUDEEP TAYLOR MD Narrative 08/31/2023 5:58 PM EST PROCEDURE INFORMATION: Exam: CT Chest With Contrast; Diagnostic Exam date and time: 08/31/2023 4:56 PM Age: 88 years old Clinical indication: Injury or trauma; Fall; Generalized; Blunt trauma (contusions or hematomas); Additional info: Significant trauma with possible severe intraabdominal injury or abdominal pain TECHNIQUE: Imaging protocol: Diagnostic computed tomography of the chest with contrast. Radiation optimization: All CT scans at this facility use at least one of these dose optimization techniques: automated exposure control; mA and/or kV adjustment per patient size (includes targeted exams where dose is matched to clinical indication); or iterative reconstruction. Contrast material: OPTIRAY 320; Contrast volume: 100 ml; Contrast route: INTRAVENOUS (IV); COMPARISON: CT CAP WITH(Adult) 12/30/2021 11:18 AM FINDINGS: Lungs: No focal consolidation in the lungs. Dependent bibasilar atelectasis. No pulmonary nodules or masses. Pleural spaces: Unremarkable. No pneumothorax. No pleural effusion. Heart: Heart size is normal with severe coronary atherosclerosis. Lymph nodes: Unremarkable. No enlarged lymph nodes. Vasculature: Ascending thoracic aorta is mildly ectatic measuring up to 4 cm in the AP dimension with moderate atherosclerosis throughout the thoracic aorta. Bones/joints: Degenerative changes in the thoracic spine. No acute fractures. There are motion artifacts, however no acute rib fractures. Bilateral total shoulder arthroplasty. Soft tissues: Unremarkable. Procedure Note Sudeep Taylor MD - 08/31/2023 PROCEDURE INFORMATION: Exam: CT Chest With Contrast; Diagnostic Exam date and time: 08/31/2023 4:56 PM Age: 88 years old Clinical indication: Injury or trauma; Fall; Generalized; Blunt trauma (contusions or hematomas); Additional info: Significant trauma withpossible severe intraabdominal injury or abdominal pain TECHNIQUE: Imaging protocol: Diagnostic computed tomography of the chest withcontrast. Radiation optimization: All CT scans at this facility use at least one ofthese dose optimization techniques: automated exposure control; mA and/or kV adjustment per patient size (includes targeted exams where dose is matchedto clinical indication); or iterative reconstruction. Contrast material: OPTIRAY 320; Contrast volume: 100 ml; Contrast route: INTRAVENOUS (IV); COMPARISON: CT CAP WITH(Adult) 12/30/2021 11:18 AM FINDINGS: Lungs: No focal consolidation in the lungs. Dependent bibasilaratelectasis. No pulmonary nodules or masses. Pleural spaces: Unremarkable. No pneumothorax. No pleural effusion. Heart: Heart size is normal with severe coronary atherosclerosis. Lymph nodes: Unremarkable. No enlarged lymph nodes. Vasculature: Ascending thoracic aorta is mildly ectatic measuring up to 4cm in the AP dimension with moderate atherosclerosis throughout the thoracicaorta. Bones/joints: Degenerative changes in the thoracic spine. No acutefractures. There are motion artifacts, however no acute rib fractures. Bilateraltotal shoulder arthroplasty. Soft tissues: Unremarkable. IMPRESSION IMPRESSION: 1. No acute intrathoracic injuries. 2. Bibasilar atelectasis. 3. Atherosclerotic vascular disease and coronary atherosclerosis. 4. 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 PROCEDURE INFORMATION: Exam: CT Abdomen And Pelvis With Contrast Exam date and time: 08/31/2023 4:56 PM Age: 88 years old Clinical indication: Injury or trauma; Fall; Generalized; Blunt trauma (contusions or hematomas); Additional info: Significant trauma withpossible severe intraabdominal injury or abdominal pain TECHNIQUE: Imaging protocol: Computed tomography of the abdomen and pelvis withcontrast. Radiation optimization: All CT scans at this facility use at least one ofthese dose optimization techniques: automated exposure control; mA and/or kV adjustment per patient size (includes targeted exams where dose is matchedto clinical indication); or iterative reconstruction. Contrast material: OPTIRAY 320; Contrast volume: 100 ml; Contrast route: INTRAVENOUS (IV); COMPARISON: CT CAP WITH(Adult) 12/30/2021 11:18 AM FINDINGS: Liver: Normal. No mass. Gallbladder and bile ducts: Normal. No calcified stones. No ductaldilation. Pancreas: Normal. No ductal dilation. Spleen: Normal. No splenomegaly. Adrenal glands: Normal. No mass. Kidneys and ureters: Normal. No hydronephrosis. Stomach and bowel: No bowel obstruction. Scattered diverticulosis of thecolon without diverticulitis. No bowel wall thickening. Postsurgical changesfrom right hemicolectomy. . Appendix: No evidence of appendicitis. Intraperitoneal space: Unremarkable. No free air. No significant fluid collection. Vasculature: Atherosclerosis of the abdominal aorta and iliac arterieswithout aneurysm. Lymph nodes: Unremarkable. No enlarged lymph nodes. Urinary bladder: Unremarkable as visualized. Reproductive: Unremarkable as visualized. Bones/joints: No acute fractures. 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 Heterotrophic calcifications around the righthip. There is diffuse osteopenia Soft tissues: Unremarkable. IMPRESSION: 1. No acute intra-abdominal or pelvic injuries. 2. Colonic diverticulosis without diverticulitis. 3. Postsurgical changes of right hemicolectomy. THIS DOCUMENT HAS BEEN ELECTRONICALLY SIGNED BY SUDEEP TAYLOR MD Eduardo Angeles MD RAD CT * CT CHEST W CONTRAST (08/31/2023 5:13 PM EST) Anatomical Region Laterality Modality Chest, Body, Cardio Computed Karlos ography 08/31/2023 4:56 PM EST Impressions 08/31/2023 5:58 PM EST IMPRESSION: 1. No acute intrathoracic injuries. 2. Bibasilar atelectasis. 3. Atherosclerotic vascular disease and coronary atherosclerosis. 4. 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 PROCEDURE INFORMATION: Exam: CT Abdomen And Pelvis With Contrast Exam date and time: 08/31/2023 4:56 PM Age: 88 years old Clinical indication: Injury or trauma; Fall; Generalized; Blunt trauma (contusions or hematomas); Additional info: Significant trauma with possible severe intraabdominal injury or abdominal pain TECHNIQUE: Imaging protocol: Computed tomography of the abdomen and pelvis with contrast. Radiation optimization: All CT scans at this facility use at least one of these dose optimization techniques: automated exposure control; mA and/or kV adjustment per patient size (includes targeted exams where dose is matched to clinical indication); or iterative reconstruction. Contrast material: OPTIRAY 320; Contrast volume: 100 ml; Contrast route: INTRAVENOUS (IV); COMPARISON: CT CAP WITH(Adult) 12/30/2021 11:18 AM FINDINGS: Liver: Normal. No mass. Gallbladder and bile ducts: Normal. No calcified stones. No ductal dilation. Pancreas: Normal. No ductal dilation. Spleen: Normal. No splenomegaly. Adrenal glands: Normal. No mass. Kidneys and ureters: Normal. No hydronephrosis. Stomach and bowel: No bowel obstruction. Scattered diverticulosis of the colon without diverticulitis. No bowel wall thickening. Postsurgical changes from right hemicolectomy. . Appendix: No evidence of appendicitis. Intraperitoneal space: Unremarkable. No free air. No significant fluid collection. Vasculature: Atherosclerosis of the abdominal aorta and iliac arteries without aneurysm. Lymph nodes: Unremarkable. No enlarged lymph nodes. Urinary bladder: Unremarkable as visualized. Reproductive: Unremarkable as visualized. Bones/joints: No acute fractures. 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 Heterotrophic calcifications around the right hip. There is diffuse osteopenia Soft tissues: Unremarkable. IMPRESSION: 1. No acute intra-abdominal or pelvic injuries. 2. Colonic diverticulosis without diverticulitis. 3. Postsurgical changes of right hemicolectomy. THIS DOCUMENT HAS BEEN ELECTRONICALLY SIGNED BY SUDEEP TAYLOR MD Narrative 08/31/2023 5:58 PM EST PROCEDURE INFORMATION: Exam: CT Chest With Contrast; Diagnostic Exam date and time: 08/31/2023 4:56 PM Age: 88 years old Clinical indication: Injury or trauma; Fall; Generalized; Blunt trauma (contusions or hematomas); Additional info: Significant trauma with possible severe intraabdominal injury or abdominal pain TECHNIQUE: Imaging protocol: Diagnostic computed tomography of the chest with contrast. Radiation optimization: All CT scans at this facility use at least one of these dose optimization techniques: automated exposure control; mA and/or kV adjustment per patient size (includes targeted exams where dose is matched to clinical indication); or iterative reconstruction. Contrast material: OPTIRAY 320; Contrast volume: 100 ml; Contrast route: INTRAVENOUS (IV); COMPARISON: CT CAP WITH(Adult) 12/30/2021 11:18 AM FINDINGS: Lungs: No focal consolidation in the lungs. Dependent bibasilar atelectasis. No pulmonary nodules or masses. Pleural spaces: Unremarkable. No pneumothorax. No pleural effusion. Heart: Heart size is normal with severe coronary atherosclerosis. Lymph nodes: Unremarkable. No enlarged lymph nodes. Vasculature: Ascending thoracic aorta is mildly ectatic measuring up to 4 cm in the AP dimension with moderate atherosclerosis throughout the thoracic aorta. Bones/joints: Degenerative changes in the thoracic spine. No acute fractures. There are motion artifacts, however no acute rib fractures. Bilateral total shoulder arthroplasty. Soft tissues: Unremarkable. Procedure Note Sudeep Taylor MD - 08/31/2023 PROCEDURE INFORMATION: Exam: CT Chest With Contrast; Diagnostic Exam date and time: 08/31/2023 4:56 PM Age: 88 years old Clinical indication: Injury or trauma; Fall; Generalized; Blunt trauma (contusions or hematomas); Additional info: Significant trauma withpossible severe intraabdominal injury or abdominal pain TECHNIQUE: Imaging protocol: Diagnostic computed tomography of the chest withcontrast. Radiation optimization: All CT scans at this facility use at least one ofthese dose optimization techniques: automated exposure control; mA and/or kV adjustment per patient size (includes targeted exams where dose is matchedto clinical indication); or iterative reconstruction. Contrast material: OPTIRAY 320; Contrast volume: 100 ml; Contrast route: INTRAVENOUS (IV); COMPARISON: CT CAP WITH(Adult) 12/30/2021 11:18 AM FINDINGS: Lungs: No focal consolidation in the lungs. Dependent bibasilaratelectasis. No pulmonary nodules or masses. Pleural spaces: Unremarkable. No pneumothorax. No pleural effusion. Heart: Heart size is normal with severe coronary atherosclerosis. Lymph nodes: Unremarkable. No enlarged lymph nodes. Vasculature: Ascending thoracic aorta is mildly ectatic measuring up to 4cm in the AP dimension with moderate atherosclerosis throughout the thoracicaorta. Bones/joints: Degenerative changes in the thoracic spine. No acutefractures. There are motion artifacts, however no acute rib fractures. Bilateraltotal shoulder arthroplasty. Soft tissues: Unremarkable. IMPRESSION IMPRESSION: 1. No acute intrathoracic injuries. 2. Bibasilar atelectasis. 3. Atherosclerotic vascular disease and coronary atherosclerosis. 4. 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 PROCEDURE INFORMATION: Exam: CT Abdomen And Pelvis With Contrast Exam date and time: 08/31/2023 4:56 PM Age: 88 years old Clinical indication: Injury or trauma; Fall; Generalized; Blunt trauma (contusions or hematomas); Additional info: Significant trauma withpossible severe intraabdominal injury or abdominal pain TECHNIQUE: Imaging protocol: Computed tomography of the abdomen and pelvis withcontrast. Radiation optimization: All CT scans at this facility use at least one ofthese dose optimization techniques: automated exposure control; mA and/or kV adjustment per patient size (includes targeted exams where dose is matchedto clinical indication); or iterative reconstruction. Contrast material: OPTIRAY 320; Contrast volume: 100 ml; Contrast route: INTRAVENOUS (IV); COMPARISON: CT CAP WITH(Adult) 12/30/2021 11:18 AM FINDINGS: Liver: Normal. No mass. Gallbladder and bile ducts: Normal. No calcified stones. No ductaldilation. Pancreas: Normal. No ductal dilation. Spleen: Normal. No splenomegaly. Adrenal glands: Normal. No mass. Kidneys and ureters: Normal. No hydronephrosis. Stomach and bowel: No bowel obstruction. Scattered diverticulosis of thecolon without diverticulitis. No bowel wall thickening. Postsurgical changesfrom right hemicolectomy. . Appendix: No evidence of appendicitis. Intraperitoneal space: Unremarkable. No free air. No significant fluid collection. Vasculature: Atherosclerosis of the abdominal aorta and iliac arterieswithout aneurysm. Lymph nodes: Unremarkable. No enlarged lymph nodes. Urinary bladder: Unremarkable as visualized. Reproductive: Unremarkable as visualized. Bones/joints: No acute fractures. 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 Heterotrophic calcifications around the righthip. There is diffuse osteopenia Soft tissues: Unremarkable. IMPRESSION: 1. No acute intra-abdominal or pelvic injuries. 2. Colonic diverticulosis without diverticulitis. 3. Postsurgical changes of right hemicolectomy. THIS DOCUMENT HAS BEEN ELECTRONICALLY SIGNED BY SUDEEP TAYLOR MD Eduardo Angeles MD RAD CT * CT C SPINE WO CONTRAST (08/31/2023 5:13 PM EST) Anatomical Region Laterality Modality Cspine, Spine, Neck, Vertebra Co mputed Tomography 08/31/2023 4:56 PM EST Impressions 08/31/2023 5:44 PM EST IMPRESSION: No acute findings. THIS DOCUMENT HAS BEEN ELECTRONICALLY SIGNED BY SAMANTHA HUDSON MD Narrative 08/31/2023 5:44 PM EST PROCEDURE INFORMATION: Exam: CT Cervical Spine Without Contrast Exam date and time: 08/31/2023 4:56 PM Age: 88 years old Clinical indication: Injury or trauma; Fall; Blunt trauma; Additional info: Significant trauma with possible severe neurologic injury or neck pain TECHNIQUE: Imaging protocol: Computed tomography of the cervical spine without contrast. Total images: 787 Radiation optimization: All CT scans at this facility use at least one of these dose optimization techniques: automated exposure control; mA and/or kV adjustment per patient size (includes targeted exams where dose is matched to clinical indication); or iterative reconstruction. COMPARISON: PET CT SKULL BASE TO MID-THIGH 05/26/2018 1:57 PM FINDINGS: Bones/joints: Cervical vertebral body height and alignment are preserved. No evidence of acute cervical spine fracture. Multilevel degenerative disc disease and facet arthrosis. Multilevel spinal canal stenosis, moderate to severe from C5 through T1.. Moderate to severe multilevel foraminal narrowing. Lungs: Lung apices are unremarkable. Soft tissues: Unremarkable. Procedure Note Tavon Garza, Samantha Forte MD - 08/31/2023 PROCEDURE INFORMATION: Exam: CT Cervical Spine Without Contrast Exam date and time: 08/31/2023 4:56 PM Age: 88 years old Clinical indication: Injury or trauma; Fall; Blunt trauma; Additionalinfo: Significant trauma with possible severe neurologic injury or neck pain TECHNIQUE: Imaging protocol: Computed tomography of the cervical spine withoutcontrast. Total images: 787 Radiation optimization: All CT scans at this facility use at least one ofthese dose optimization techniques: automated exposure control; mA and/or kV adjustment per patient size (includes targeted exams where dose is matchedto clinical indication); or iterative reconstruction. COMPARISON: PET CT SKULL BASE TO MID-THIGH 05/26/2018 1:57 PM FINDINGS: Bones/joints: Cervical vertebral body height and alignment are preserved.No evidence of acute cervical spine fracture. Multilevel degenerative discdisease and facet arthrosis. Multilevel spinal canal stenosis, moderate to severefrom C5 through T1.. Moderate to severe multilevel foraminal narrowing. Lungs: Lung apices are unremarkable. Soft tissues: Unremarkable. IMPRESSION IMPRESSION: No acute findings. THIS DOCUMENT HAS BEEN ELECTRONICALLY SIGNED BY SAMANTHA HUDSON MD Eduardo Angeles MD RAD CT * CT HEAD/BRAIN WO CONTRAST (08/31/2023 5:13 PM EST) Anatomical Region Laterality Modality Head Computed Tomogra phy 08/31/2023 4:56 PM EST Impressions 08/31/2023 5:43 PM EST IMPRESSION: No acute intracranial abnormality. THIS DOCUMENT HAS BEEN ELECTRONICALLY SIGNED BY SAMANTHA HUDSON MD Narrative 08/31/2023 5:43 PM EST PROCEDURE INFORMATION: Exam: CT Head Without Contrast Exam date and time: 08/31/2023 4:56 PM Age: 88 years old Clinical indication: Injury or trauma; Fall; Blunt trauma (contusions or hematomas); Additional info: Significant trauma with possible severe neurologic injury or head pain TECHNIQUE: Imaging protocol: Computed tomography of the head without contrast. Total images: 196 Radiation optimization: All CT scans at this facility use at least one of these dose optimization techniques: automated exposure control; mA and/or kV adjustment per patient size (includes targeted exams where dose is matched to clinical indication); or iterative reconstruction. COMPARISON: MRI BRAIN W WO CONTRAST 08/19/2018 4:08 PM FINDINGS: Brain: Global cerebral and cerebellar atrophy. Lucency in the bilateral cerebral white matter consistent with chronic microvascular ischemia. No acute intracranial hemorrhage. No midline shift. Remote left cerebellar infarct. Cerebral ventricles: No obstructive hydrocephalus. Paranasal sinuses: Visualized sinuses are unremarkable. No fluid levels. Mastoid air cells: Visualized mastoid air cells are well aerated. Orbital cavities: Evidence of prior cataract surgery. Bones/joints: Unremarkable. No acute fracture. Soft tissues: Unremarkable. Procedure Note Samantha Hudson Jr., MD - 08/31/2023 PROCEDURE INFORMATION: Exam: CT Head Without Contrast Exam date and time: 08/31/2023 4:56 PM Age: 88 years old Clinical indication: Injury or trauma; Fall; Blunt trauma (contusions or hematomas); Additional info: Significant trauma with possible severeneurologic injury or head pain TECHNIQUE: Imaging protocol: Computed tomography of the head without contrast. Total images: 196 Radiation optimization: All CT scans at this facility use at least one ofthese dose optimization techniques: automated exposure control; mA and/or kV adjustment per patient size (includes targeted exams where dose is matchedto clinical indication); or iterative reconstruction. COMPARISON: MRI BRAIN W WO CONTRAST 08/19/2018 4:08 PM FINDINGS: Brain: Global cerebral and cerebellar atrophy. Lucency in the bilateral cerebral white matter consistent with chronic microvascular ischemia. Noacute intracranial hemorrhage. No midline shift. Remote left cerebellar infarct. Cerebral ventricles: No obstructive hydrocephalus. Paranasal sinuses: Visualized sinuses are unremarkable. No fluid levels. Mastoid air cells: Visualized mastoid air cells are well aerated. Orbital cavities: Evidence of prior cataract surgery. Bones/joints: Unremarkable. No acute fracture. Soft tissues: Unremarkable. IMPRESSION IMPRESSION: No acute intracranial abnormality. THIS DOCUMENT HAS BEEN ELECTRONICALLY SIGNED BY SAMANTHA HUDSON MD Eduardo Angeles MD RAD CT * XR PELVIS 1 VIEW (08/31/2023 4:40 PM EST) Anatomical Region Laterality Modality Pelvis, Lower Extremity Digital Radiography 08/31/2023 4:32 PM EST Impressions 08/31/2023 4:49 PM EST IMPRESSION: No acute findings. THIS DOCUMENT HAS BEEN ELECTRONICALLY SIGNED BY GAVIN CABRERA MD Narrative 08/31/2023 4:49 PM EST PROCEDURE INFORMATION: Exam: XR Pelvis Exam date and time: 08/31/2023 4:32 PM Age: 88 years old Clinical indication: Other: Trauma alert, fall on thinners TECHNIQUE: Imaging protocol: Radiologic exam of the pelvis. Views: 1 or 2 view. COMPARISON: DX XR HIP UNILAT 2-3 VIEWS INCLUDING AP PELVIS 02/24/2023 3:10 PM FINDINGS: Bones/joints: The left proximal femur is partially excluded from the field of view. Bilateral total hip arthroplasties. Alignment is unchanged. No hardware fracture or evidence of loosening. No periprosthetic fracture or dislocation. Lower lumbar spine degeneration. Soft tissues: Heterotopic ossification about both hips. Procedure Note Gavin Cabrera MD - 08/31/2023 PROCEDURE INFORMATION: Exam: XR Pelvis Exam date and time: 08/31/2023 4:32 PM Age: 88 years old Clinical indication: Other: Trauma alert, fall on thinners TECHNIQUE: Imaging protocol: Radiologic exam of the pelvis. Views: 1 or 2 view. COMPARISON: DX XR HIP UNILAT 2-3 VIEWS INCLUDING AP PELVIS 02/24/2023 3:10 PM FINDINGS: Bones/joints: The left proximal femur is partially excluded from the fieldof view. Bilateral total hip arthroplasties. Alignment is unchanged. Nohardware fracture or evidence of loosening. No periprosthetic fracture ordislocation. Lower lumbar spine degeneration. Soft tissues: Heterotopic ossification about both hips. IMPRESSION IMPRESSION: No acute findings. THIS DOCUMENT HAS BEEN ELECTRONICALLY SIGNED BY GAVIN CABRERA MD Eduardo Angeles MD RADIOLOGY ([facility]) * XR CHEST 1 VIEW (08/31/2023 4:40 PM EST) Anatomical Region Laterality Modality Chest Digital Radiogra phy 08/31/2023 4:30 PM EST Impressions 08/31/2023 4:50 PM EST IMPRESSION: No acute findings. THIS DOCUMENT HAS BEEN ELECTRONICALLY SIGNED BY GAVIN CABRERA MD Narrative 08/31/2023 4:50 PM EST PROCEDURE INFORMATION: Exam: XR Chest Exam date and time: 08/31/2023 4:30 PM Age: 88 years old Clinical indication: Other: Trauma alert, fall on thinners TECHNIQUE: Imaging protocol: Radiologic exam of the chest. Views: 1 view. COMPARISON: CT CAP WITH(Adult) 12/30/2021 11:18 AM FINDINGS: Tubes, catheters and devices: Left chest wall cardiac pacemaker. Lungs: Unremarkable. No consolidation. Pleural spaces: The left costophrenic angle is partially excluded from the [id number]. No large pneumothorax or pleural effusion. Heart/Mediastinum: Cardiomediastinal silhouette within normal limits for technique. Bones/joints: Right shoulder arthroplasty. Procedure Note Gavin Cabrera MD - 08/31/2023 PROCEDURE INFORMATION: Exam: XR Chest Exam date and time: 08/31/2023 4:30 PM Age: 88 years old Clinical indication: Other: Trauma alert, fall on thinners TECHNIQUE: Imaging protocol: Radiologic exam of the chest. Views: 1 view. COMPARISON: CT CAP WITH(Adult) 12/30/2021 11:18 AM FINDINGS: Tubes, catheters and devices: Left chest wall cardiac pacemaker. Lungs: Unremarkable. No consolidation. Pleural spaces: The left costophrenic angle is partially excluded from the [id number]. No large pneumothorax or pleural effusion. Heart/Mediastinum: Cardiomediastinal silhouette within normal limits for technique. Bones/joints: Right shoulder arthroplasty. IMPRESSION IMPRESSION: No acute findings. THIS DOCUMENT HAS BEEN ELECTRONICALLY SIGNED BY GAVIN CABRERA MD Eduardo Angeles MD RADIOLOGY ([facility]) * DIFFERENTIAL, AUTOMATED (08/31/2023 4:39 PM EST) WBC 7.62 4.00 - 10.80 K/uL 08/31/2023 4:48 PM EST [facility] Neutrophils % 66.9 40.0 - 75.0 % 08/31/2023 4:48 PM EST [facility] Lymphocytes % 21.7 18.0 - 42.0 % 08/31/2023 4:48 PM EST [facility] Monocytes % 9.2 1.0 - 11.0 % 08/31/2023 4:48 PM EST [facility] Eosinophils % 1.2 0.0 - 6.0 % 08/31/2023 4:48 PM EST [facility] Basophils % 0.3 0.0 - 2.0 % 08/31/2023 4:48 PM EST [facility] Immature Granulocytes % 0.7 0.0 - 2.0 % 08/31/2023 4:48 PM EST [facility] Absolute Neutrophils 5.11 1.80 - 7.70 K/uL 08/31/2023 4:48 PM EST [facility] Absolute Lymphocytes 1.65 1.00 - 4.80 K/ul 08/31/2023 4:48 PM EST [facility] Absolute Monocytes 0.70 0.00 - 1.10 K/uL 08/31/2023 4:48 PM EST [facility] Absolute Eosinophils 0.09 0.00 - 0.70 K/uL 08/31/2023 4:48 PM EST [facility] Absolute Basophils 0.02 0.00 - 0.20 K/uL 08/31/2023 4:48 PM EST [facility] Absolute Immature Granulocytes 0.05 0.00 - 0.20 K/uL 08/31/2023 4:48 PM EST LABORATORY [facility] Blood Venous blood specimen / Unknown Venipuncture / Unknown 08/31/2023 4:39 PM EST 08/31/2023 4:45 PM EST Eduardo Angeles MD LAB BLOOD ORDERABLES LABORATORY [address] [address] * (ABNORMAL) CBC (08/31/2023 4:39 PM EST) WBC 7.62 4.00 - 10.80 K/uL 08/31/2023 4:48 PM EST LABORATORY [facility] RBC 4.55 4.50 - 5.25 M/uL 08/31/2023 4:48 PM EST LABORATORY GL HGB 13.8(L) 14.0 - 16.8 g/dL 08/31/2023 4:48 PM EST LABORATORY GL HCT 42.3 40.0 - 48.4 % 08/31/2023 4:48 PM EST LABORATORY GL MCV 93.0 82.0 - 99.5 fL 08/31/2023 4:48 PM EST LABORATORY GL MCH 30.3 27.0 - 34.0 pg 08/31/2023 4:48 PM EST LABORATORY [facility] MCHC 32.6 32.0 - 36.0 g/dL 08/31/2023 4:48 PM EST LABORATORY GL RDW 14.6 11.5 - 15.5 % 08/31/2023 4:48 PM EST LABORATORY [facility] PLT 194 140 - 400 K/uL 08/31/2023 4:48 PM EST LABORATORY GL MPV 10.1 6.6 - 11.1 fL 08/31/2023 4:48 PM EST LABORATORY GL nRBCs 0 <=0 /100 WBCs 08/31/2023 4:48 PM EST LABORATORY GL Blood Venous blood specimen / Unknown Venipuncture / Unknown 08/31/2023 4:39 PM EST 08/31/2023 4:45 PM EST Eduardo Angeles MD LAB BLOOD ORDERABLES Performing Organization Address City/[facility]/ZIP Co de Phone Number LABORATORY [address] [phone] * (ABNORMAL) TROPONIN T, HIGH SENSITIVITY (08/31/2023 4:39 PM EST) [facility] Troponin T, High Sensitivity 61(H) <=22 ng/L 08/31/2023 5:36 PM EST LABORATORY [facility] Blood Venous blood specimen / Unknown Venipuncture / Unknown 08/31/2023 4:39 PM EST 08/31/2023 4:44 PM EST Eduardo Angeles MD LAB BLOOD ORDERABLES Performing Organization Address City/[facility] Co de Phone Number LABORATORY [address] [address] * PT INR (08/31/2023 4:39 PM EST) [facility] Prothrombin Time 13.8 11.6 - 15.2 seconds 08/31/2023 5:11 PM EST LABORATORY [facility] INR 1.1 0.8 - 1.2 08/31/2023 5:11 PM EST LABORATORY [facility] Blood Venous blood specimen / Unknown Venipuncture / Unknown 08/31/2023 4:39 PM EST 08/31/2023 4:[address] [facility] LABORATORY [facility] - 08/31/2023 5:11 PM EST Warfarin Therapy INR: 2.0-3.0 conventional anticoagulation INR: 2.5-3.5 high intensity anticoagulation Eduardo Angeles MD LAB BLOOD ORDERABLES Performing Organization Address City/[facility] Co de Phone Number LABORATORY [address] [address] * (ABNORMAL) LACTATE,WHOLE BLOOD (08/31/2023 4:39 PM EST) [facility] Lactate, Whole Blood 2.6(H) 0.4 - 2.0 mmol/L 08/31/2023 4:46 PM EST [facility] Blood Venous blood specimen / Unknown Venipuncture / Unknown 08/31/2023 4:39 PM EST 08/31/2023 4:43 PM EST Eduardo Angeles MD LAB BLOOD ORDERABLES Performing Organization Address City/[facility]/ZIP Co de Phone Number LABORATORY [address] [address] * ETHANOL, MEDICAL (08/31/2023 4:39 PM EST) ETHANOL, MEDICAL Negative Negative 08/31/2023 5:11 PM EST LABORATORY GL Blood Venous blood specimen / Unknown Venipuncture / Unknown 08/31/2023 4:39 PM EST 08/31/2023 4:45 PM EST Eduardo Angeles MD LAB BLOOD ORDERABLES Performing Organization Address City/[facility] Co de Phone Number LABORATORY [address] [address] * (ABNORMAL) COMPREHENSIVE METABOLIC PANEL (08/31/2023 4:39 PM EST) Pathologist [facility] BUN 24(H) 6 - 20 mg/dL 08/31/2023 5:11 PM EST [facility] Creatinine 1.1 0.6 - 1.2 mg/dL 08/31/2023 5:11 PM EST [facility] Estimated Glomerular Filtration Rate 63 >=60 mL/min 08/31/2023 5:11 PM EST [facility] Comment:eGFR is calculated b ased on the CKD-EPI 2020 equation Sodium 143 135 - 146 mmol/L 08/31/2023 5:11 PM EST [facility] Potassium 4.1 3.5 - 5.1 mmol/L 08/31/2023 5:11 PM EST [facility] Chloride 107 98 - 107 mmol/L 08/31/2023 5:11 PM EST [facility] CO2 24 22 - 32 mmol/L 08/31/2023 5:11 PM EST [facility] Anion Gap 12 7 - 15 mmol/L 08/31/2023 5:11 PM EST [facility] Glucose 152(H) 70 - 120 mg/dL 08/31/2023 5:11 PM EST [facility] Albumin 3.6(L) 3.8 - 5.0 g/dL 08/31/2023 5:11 PM EST [facility] AST 19 10 - 50 U/L 08/31/2023 5:11 PM EST [facility] Alkaline Phosphatase 91 35 - 130 U/L 08/31/2023 5:11 PM EST [facility] Bilirubin, Total 0.4 <=1.2 mg/dL 08/31/2023 5:11 PM EST [facility] Calcium 9.1 8.4 - 10.2 mg/dL 08/31/2023 5:11 PM EST [facility] Protein 6.5 6.0 - 8.3 g/dL 08/31/2023 5:11 PM EST [facility] ALT 16 10 - 50 U/L 08/31/2023 5:11 PM EST [facility] Blood Venous blood specimen / Unknown Venipuncture / Unknown 08/31/2023 4:39 PM EST 08/31/2023 4:45 PM EST Eduardo Angeles MD LAB BLOOD ORDERABLES Performing Organization Address City/State/[facility] Co de Phone Number LABORATORY [facility] [address] [place] [address] documented in this encounter Visit Diagnoses Diagnosis Fall, initial encounter- Primary Trauma Injury, other and unspecified, unspecified site Skin tear of left elbow without complication, initial encounter documented in this encounter Administered Medications Inactive Administered Medications - up to 3 most recent administrations Medication Order MAR Action Action Date Dose Rate Site Ioversol (Optiray 320) inj 100 mL 100 mL, Intravenous, ONCE, On Thu08/31/23 at 1745, For 1 dose, Radiology Medication Routing (Non-IR) Given 08/31/2023 5:45 PM EST 100 mL oxygen GAS Inhalation, OXYGEN, First dose on Thu08/31/23 at 1715, Until Discontinued, Device/Managed by: Low Flow Device, Goal SPO2 (%): 94 or greater, Starting Device: Nasal Cannula, Initial Flow Rate (LPM): 2, Lowest Support: Nasal Cannula: Flow 0-6 LPM. Titrate up/down by 1 LPM., Titration Interval: Q2 minutes and as needed., Notify Provider: For sudden DECREASE in resting SPO2 to less than 85% and when escalating delivery device., Wean patient off Oxygen when the oxygen saturation is greater than or equal to 93% sodium chloride 0.9 % flush peripheral samuel 3 mL 3 mL, IV Push, QSHIFT, First dose on Thu08/31/23 at 1715, Until Discontinued, Do not flush if lock, PICC, or central line not in place; IV infusing or unable to flush. Given 08/31/2023 5:15 PM EST 3 mL documented in this encounter Active and Recently Administered Medications Times are shown in EST. Scheduled Medication Order 08/29/2023 08/30/2023 08/31/2023 Ioversol (Optiray 320) inj 100 mL (COMPLETED) 100 mL, Intravenous, ONCE, On Thu08/31/23 at 1745, For 1 dose, Radiology Medication Routing (Non-IR) 1745 (Given - Provid er: Keyana Wade RT) oxygen GAS Inhalation, OXYGEN, First dose on Thu08/31/23 at 1715, Until Discontinued, Device/Managed by: Low Flow Device, Goal SPO2 (%): 94 or greater, Starting Device: Nasal Cannula, Initial Flow Rate (LPM): 2, Lowest Support: Nasal Cannula: Flow 0-6 LPM. Titrate up/down by 1 LPM., Titration Interval: Q2 minutes and as needed., Notify Provider: For sudden DECREASE in resting SPO2 to less than 85% and when escalating delivery device., Wean patient off Oxygen when the oxygen saturation is greater than or equal to 93% 1715 (Oxygen Off - P rovider: Jonelle Blue, VENU) sodium chloride 0.9 % flush peripheral samuel 3 mL 3 mL, IV Push, QSHIFT, First dose on Thu08/31/23 at 1715, Until Discontinued, Do not flush if lock, PICC, or central line not in place; IV infusing or unable to flush. 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 No Does the patient have Health Care Power of Curriculum Director? No Code Status History Code Status Date Activated Date Inactivated Comments Full Code 07/23/2017 7:40 PM 07/26/2017 5:13 PM Question Answer Comments Discussion of Advance Direct alyssa occurred with: Not Discussed Healthcare Agents on File Name Relationship Healthcare Agent Relationshi p Communication Carlene Behrer Spouse Health Care Power of Attorn ey Care Teams Field Collector Relationship Specialty Start Date End Date Victoria Saldana DO [address] [place] [address] PCP - General Family Medicine 02/20/22 documented as of this encounter
--- OUTSIDE RECORDS SUMMARY | 2024-01-21 09:23 | External Medical Summary ---
Author Name Unknown Address Unknown Organization K1F:[facility] - [address] [place] [address] Laboratory Report Ordering Provider Test Date Status MARIETTA ALCAZAR 08/31/2023 16:39:00 Final Observation Date Value Abnormality Reference (Units ) Status Troponin T 08/31/2023 16:39:00 61 Above high normal < =22 (ng/L) Final Performing Location [facility] - [address] [place] [address]
--- OUTSIDE RECORDS SUMMARY | 2024-01-21 09:23 | External Medical Summary | Summary of Care ---
Author Name Unknown Organization [facility] Address [address] [facility] [place] [address] Phone [phone] Care Team Providers Care Bone Drier Operator Name Role Phone Shana Victoria Worthington DO Primary Care Provider + [phone] Reason for Visit * Reason Onset Date Comments [facility]: Maintenance 08/31/2023 Encounter Details Date Type Department Care Team (Late st Contact Info) Description 08/31/2023 Telephone [facility], [facility] [address] [facility] [place] [address] [facility], Nurse [facility] [address] [facility] [place] [address] [facility]: Maintenance Allergies Active Allergy Reactions Criticality Noted Date Comments Meperidine Psych complications 05/27/2017 Confused documented as of this encounter (statuses as of 08/31/2023) Medications Medication Sig Dispensed Refills Start Date End Date Status OMEGA-3 FISH OIL 1000 MG PO CAPS one daily by mouth 0 A ctive Aspirin 81 MG Tablet Take 1 Tablet by mouth in the morning. 0 Active Multiple Vitamins-Minerals (MULTIVITAL [place]) TABS Take by mouth. 0 Active Blood Glucose Monitoring Suppl (ONETOUCH VERIO) w/Device KITIndications:DM type 2 nursing care encounter (HCC),Type 2 diabetes mellitus with hemoglobin A1c goal of less than 7.0% ([facility]),DM type 2 with diabetic peripheral neuropathy ([facility]) Use up to 4 times [...] by mouth in the morning. (gets from stage producer). 0 10/09/2022 Active Metoprolol Succinate ER 50 [...] as of this encounter (statuses as of 08/31/2023) Active Problems Problem Noted Date Diagnosed Date [...] Self - Management Plan Other/Additional Comments: contact [facility] for directions Exacerbation Plan Other/Additional [...] pain despite this dosing, they should call [facility]. Open wound of second toe of left foot 10/11/2021 Last Assessment & Plan: 86-year-old diabetic male with open wounds on the 2nd and 3rd left toe needing home health wound care to ensure that he has proper healing. There is some noted drainage from these wounds. Plan: I will place a home health referral for wound care to [facility] health. My recommendations are to cleanse [...] home health referral for wound care to [facility] health. 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 08/09/2019 Last Assessment & Plan: Reported d/t hammer toe Ischemic cardiomyopathy 05/05/2018 Coronary artery disease invo lving [place] coronary artery of [place] heart with angina pectoris 05/05/2018 Overview: July [...] as of this encounter (statuses as of 08/31/2023) Resolved Problems Problem Noted Date Diagnosed Date [...] as of this encounter (statuses as of 08/31/2023) Immunizations Name Administration Dates Next Due COVID-19 mRNA, LNP-s, No Pre serve, 2-Dose Series (TV Pixie) 10/27/2020,10/06/2020 COVID-19, LNP-s, No Preserve , Ilan-sucrose, [...] Telephone Encounter - Jeanie Manley RN - 08/31/2023 4:37 PM EST ED notification received Patient currently in [facility] ED No disposition or notes at this time Scheduled follow up calls EMI Sanchez Warehouse Clerk [facility] documented in this encounter Plan of Treatment Upcoming Encounters Date Type Department Care Team (Late st Contact Info) Description 09/01/2023 9:15 AM EST Scheduled Telephone [facility], [facility] [address] [place] [address] Coordinator, [facility] [address] [place] [address] 09/01/2023 12:00 PM EST Scheduled Telephone [facility], [facility] [address] [facility] [place] [address] Cassandra Gomez, [address] [facility] [place] [address] 09/07/2023 8:40 AM EST Office Visit Podiatry, [address] [place] [address] Janis Mg DPM [address] [place] [address] 09/29/2023 12:30 PM EDT Office Visit Sleep Disorders Ctr [facility] [address] [phone] Neela Brunner CRNP [address] [place] [address] 09/30/2023 1:30 PM EDT Office Visit Cardiology, [facility] [address] [place] [address] Tess Riddle PA-C [address] [place] [address] Health Maintenance Due Date Last Done Comments Hepatitis B (1 of 3 - Risk 3-dose series) 1995 COVID-19 Vaccine ( - 2022- season) 2023 01/23/2022, 01/23/2022, 10/27/2020, Additional history exists CKD PHOS USE SMARTSET 78686 04/08/2023 09, 03/14/2021, 08/10/2017, Additional history exists [...] 03/24/2023, 05/27/20 17 CKD HGB USE SMARTSET 72363 08/31/202408/31, 08/31/2023, 08/26/2023, Additional history exists DTaP,Tdap,and [...] Documents on File Type Date Recorded Patient Burn Nurse Expl anation POLST 08/11/2022 [place] [facility] FOR LIFE-SUSTAINING TREATMENT [place] DEPT OF HEALTH Advance Directives and Living Will 06/30/2014 ADVANCE DIRECTIVE Latest Code Status on File Code Status Date Activated Date Inactivated Comments Full Code 08/03/2017 11:04 PM 08/10/2017 6:40 PM Question Answer Comments Discussion of Advance Direct alyssa occurred with: Not Discussed Does the patient have a Living Will? No Does the patient have Health Care Power of Virtual Classroom Manager? No Code Status History Code Status Date Activated Date Inactivated Comments Full Code 07/23/2017 7:40 PM 07/26/2017 5:13 PM Question Answer Comments Discussion of Advance Direct alyssa occurred with: Not Discussed Healthcare Agents on File Name Relationship Healthcare Agent Relationshi p Communication Carlene Behrer Spouse Health Care Power of Attorn ey Care Teams Bone Drier Operator Relationship Specialty Start Date End Date Victoria Saldana DO [address] [place] [address] PCP - General Family Medicine 02/20/22 documented as of this encounter
--- OUTSIDE RECORDS SUMMARY | 2024-01-21 09:23 | External Medical Summary | Summary of Care ---
Author Name Unknown Organization [facility] Address [address] [facility] [place] [address] Phone [phone] Care Team Providers Care Registered Pharmacist Name Role Phone Shana Victoria Worthington DO Primary Care Provider + [phone] Reason for Visit * Reason Onset Date Comments [facility]: Maintenance 08/31/2023 Encounter Details Date Type Department Care Team (Late st Contact Info) Description 08/31/2023 Telephone [facility], [facility] [address] [facility] [place] [address] [facility], Nurse [facility] [address] [facility] [place] [address] [facility]: Maintenance Allergies Active Allergy [...] the morning. 0 Active Multiple Vitamins-Minerals (MULTIVITAL [place]AK[place]) TABS Take by mouth. 0 Active Blood Glucose Monitoring Suppl (ONETOUCH VERIO) w/Device KITIndications:DM type 2 nursing care encounter (HCC),Type 2 diabetes mellitus with hemoglobin A1c goal of less than 7.0% ([facility]),DM type 2 with diabetic peripheral neuropathy ([facility]) Use up to 4 times a day [...] by mouth in the morning. (gets from livestock handler). 0 10/09/2022 Active Metoprolol Succinate ER 50 [...] Self - Management Plan Other/Additional Comments: contact [facility] for directions Exacerbation Plan Other/Additional Comments: comfort [...] pain despite this dosing, they should call [facility]. Open wound of second toe of left foot 10/11/2021 Last Assessment & Plan: 86-year-old diabetic male with open wounds on the 2nd and 3rd left toe needing home health wound care to ensure that he has proper healing. There is some noted drainage from these wounds. Plan: I will place a home health referral for wound care to [facility] health. My recommendations are [...] home health referral for wound care to [facility] health. My recommendations are [...] as requested by family Was previously with [facility] 06/2022-02/2023 Falls frequently 10/01/2021 Last Assessment [...] goiter 09/11/2020 Coronary artery disease invo lving [place] coronary artery of [place] heart without angina pectoris 08/09/2019 Last [...] cardiomyopathy 05/05/2018 Coronary artery disease invo lving [place] coronary artery of [place] heart with angina pectoris 05/05/2018 Overview: [...] mRNA, LNP-s, No Pre serve, 2-Dose Series (Emair) 10/27/2020,10/06/2020 COVID-19, LNP-s, No Preserve , Ilan-sucrose, [...] encounter Miscellaneous Notes * Telephone Encounter - Lilliana Rosenbaum RN - 09/01/2023 7:05 AM EST [facility] Notification Date: 09/01/2023 Time: 7:05 AM [facility] Subprogram: Focused Care Management (3-9 months) [facility] Episode Start Date: No linked episodes [facility] Enrollment Status: Currently Enrolled Action Taken on [employer] Alert and Outcome of ED Visit: Review ONLY: Phone Call Follow Up ONLY Scheduled Lilliana Rosenbaum RN * Telephone Encounter - Jeanie Manley RN - 08/31/2023 4:37 PM EST ED notification received Patient currently in [facility] ED No disposition or notes at this time Scheduled follow up calls EMI Sanchez Building Admin [facility] documented in this encounter Plan of Treatment Upcoming Encounters Date Type Department Care Team (Late st Contact Info) Description 09/01/2023 9:15 AM EST Scheduled Telephone [facility], [facility] [address] [place] [address] Coordinator, [facility] [address] [place] [address] 09/01/2023 12:00 PM EST Scheduled Telephone [facility], [facility] [address] [facility] [place] [address] Cassandra Gomez, [address] [facility] [place] [address] 09/07/2023 8:40 AM EST Office Visit Podiatry, [address] [place] [address] Janis Mg DPM [address] [place] [address] 09/29/2023 12:30 PM EDT Office Visit Sleep Disorders Ctr [facility] [address] [facility] [place] [phone] Neela Brunner CRNP [address] [facility] [place] [address] 09/30/2023 1:30 PM EDT Office Visit Cardiology, [facility] [address] [facility] [place] [address] Tess Riddle PA-C [address] [place] [address] [place] [address] Health Maintenance Due Date Last Done Comments Hepatitis B (1 of 3 - Risk 3-dose series) 1995 COVID-19 Vaccine ( season) 2023 01/23/2022, 01/23/2022, 10/27/2020, Additional history exists CKD PHOS USE SMARTSET 06146 04/08/2023 09/2 , 03/14/2021, 08/10/2017, Additional history [...] 03/24/2023, 05/27/20 17 CKD HGB USE SMARTSET 76996 08/31/202408/31, 08/31/2023, 08/26/2023, Additional history exists DTaP,Tdap,and [...] Documents on File Type Date Recorded Patient Case Consultant Expl anation POLST 08/11/2022 [place] OR [facility] FOR LIFE-SUSTAINING TREATMENT [place] DEPT OF HEALTH Advance Directives and Living Will 06/30/2014 ADVANCE DIRECTIVE Latest Code Status on File Code Status Date Activated Date Inactivated Comments Full Code 08/03/2017 11:04 PM 08/10/2017 6:40 PM Question Answer Comments Discussion of Advance Direct alyssa occurred with: Not Discussed Does the patient have a Living Will? No Does the patient have Health Care Power of Aids Nurse? No Code Status History Code Status Date Activated Date Inactivated Comments Full Code 07/23/2017 7:40 PM 07/26/2017 5:13 PM Question Answer Comments Discussion of Advance Direct alyssa occurred with: Not Discussed Healthcare Agents on File Name Relationship Healthcare Agent Relationshi p Communication Carlene Behrer Spouse Health Care Power of Attorn ey Care Teams Registered Pharmacist Relationship Specialty Start Date End Date Victoria Saldana DO [address] [place] [address] PCP - General Family Medicine 02/20/22 documented as of this encounter
--- OUTSIDE RECORDS SUMMARY | 2024-01-21 09:23 | External Medical Summary | Summary of Care ---
Author Name Unknown Organization [facility] Address [address] [facility] [place] [address] Phone [phone] Care Team Providers Care Industrial Painter Name Role Phone Shana Victoria Worthington DO Primary Care Provider + [phone] Reason for Visit * Reason Onset Date Comments [facility]: Maintenance 08/26/2023 Encounter Details Date Type Department Care Team (Late st Contact Info) Description 08/26/2023 1:45 PM EST Scheduled Telephone [facility], [facility] [address] [facility] [place] [address] [facility] [address] [facility] [place] [address] Allergies Active Allergy Reactions Criticality Noted Date Comments Meperidine Psych complications 05/27/2017 Confused documented as of this encounter (statuses as of 08/26/2023) Medications Medication Sig Dispensed Refills Start Date End Date Status OMEGA-3 FISH OIL 1000 MG PO CAPS one daily by mouth 0 A ctive Aspirin 81 MG Tablet Take 1 Tablet by mouth in the morning. 0 Active Multiple Vitamins-Minerals (MULTIVITAL [place]ENE[place]-CAYUGA) TABS Take by mouth. 0 Active Blood Glucose Monitoring Suppl (ONETOUCH VERIO) w/Device KITIndications:DM type 2 nursing care encounter (HCC),Type 2 diabetes mellitus with hemoglobin A1c goal of less than 7.0% ([facility]DM type 2 with diabetic peripheral neuropathy ([facility]) Use up to 4 [...] by mouth in the morning. (gets from marketing technology coordinator). 0 10/09/2022 Active Metoprolol Succinate ER 50 [...] as of this encounter (statuses as of 08/26/2023) Active Problems Problem Noted Date Diagnosed Date [...] Self - Management Plan Other/Additional Comments: contact [facility] for directions Exacerbation Plan Other/Additional [...] pain despite this dosing, they should call [facility]. Open wound of second toe of left foot 10/11/2021 Last Assessment & Plan: 86-year-old diabetic male with open wounds on the 2nd and 3rd left toe needing home health wound care to ensure that he has proper healing. There is some noted drainage from these wounds. Plan: I will place a home health referral for wound care to [facility] health. My recommendations are to cleanse the [...] home health referral for wound care to [facility] health. 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 t 08/09/2019 Last Assessment & Plan: Reported d/t hammer toe Ischemic cardiomyopathy 05/05/2018 Coronary artery disease invo lving [place] coronary artery of [place] heart with angina pectoris 05/05/2018 Overview: July [...] as of this encounter (statuses as of 08/26/2023) Resolved Problems Problem Noted Date Diagnosed Date [...] as of this encounter (statuses as of 08/26/2023) Immunizations Name Administration Dates Next Due COVID-19 mRNA, LNP-s, No Pre serve, 2-Dose Series (GoGoPin) 10/27/2020,10/06/2020 COVID-19, LNP-s, No Preserve , Ilan-sucrose, [...] Telephone Encounter - Cassandra Gomez CM - 08/26/2023 2:04 PM EST Call placed to [facility]. Confirmed that patient is still at facility. Transferred to [facility] requesting a call back Cassandra Gomez Grid Casting Machine Operator Helper [facility] [email or web address] documented in this encounter Plan of Treatment Upcoming Encounters Date Type Department Care Team (Late st Contact Info) Description 09/29/2023 12:30 PM EDT Office Visit Sleep Disorders Ctr [facility] [address] [place] [phone] Neela Brunner CRNP [address] [place] [address] 09/30/2023 1:30 PM EDT Office Visit Cardiology, [facility] [address] [place] [address] Tess Riddle PA-C [address] [place] [phone] Health Maintenance Due Date Last Done Comments Hepatitis B (1 of 3 - Risk 3-dose series) 1995 COVID-19 Vaccine ( season) 2023 01/23/2022, 10/27/2020, 10/06/2020 CKD PHOS USE SMARTSET 39832 04/08/202303/21, 03/14/2021, 08/10/2017, Additional history exists HbA1c 06/11/2023 12/09/2022, 09/18, 04/08/2022, Additional history exists Diabetic Foot Exam 08/11/2023 08/11/2022, 0 11/01/2021, 01/02/2021, Additional history exists Diabetic Eye Exam 10/03/2023 10/02/2022, , 04/29/2021, Additional history exists Albumin/Creatinine Ratio 10/10/2023 023, 12/26/2021, 03/14/2021, Additional history exists B-12 12/10/2023 12/09/2022, 04/0 12/2021, 09/14/2020, Additional history exists Depression Screening 03/24/2024 03/24/2023, 05/27/20 17 CKD HGB USE SMARTSET 79030 08/26/202408/26, 08/19/2023, 11/20/2022, Additional history exists DTaP,Tdap,and Td Vaccines (2 - Td or Tdap) 06/03/2028 06/03/2018 COLONOSCOPY-EVERY 2 YRS AGES 18-100 Discontinued 08/02/2019, 07/29/2018, 07/29/2018, Additional history exists Zoster Vaccines Completed 07/25/2020, 05/11/2020 Influenza Vaccine (FLU shot) Completed 03/24/2023, 03/31/2022, 05/04/2021, Additional history exists Pneumococcal Vaccine: 65+ Years Completed 08/01/2023, 06/17/2018, 05/27/2017, Additional history exists GARDASIL-HPV IMMUNIZATION SERIES Aged [...] Documents on File Type Date Recorded Patient Compensation And Benefits Advisor Expl anation POLST 08/11/2022 [place] [facility] FOR LIFE-SUSTAINING TREATMENT [place] DEPT OF HEALTH Advance Directives and Living Will 06/30/2014 ADVANCE DIRECTIVE Latest Code Status on File Code Status Date Activated Date Inactivated Comments Full Code 08/03/2017 11:04 PM 08/10/2017 6:40 PM Question Answer Comments Discussion of Advance Direct alyssa occurred with: Not Discussed Does the patient have a Living Will? No Does the patient have Health Care Power of Fisher Swordfish? No Code Status History Code Status Date Activated Date Inactivated Comments Full Code 07/23/2017 7:40 PM 07/26/2017 5:13 PM Question Answer Comments Discussion of Advance Direct alyssa occurred with: Not Discussed Healthcare Agents on File Name Relationship Healthcare Agent Relationshi p Communication Carlene Behrer Spouse Health Care Power of Attorn ey Care Teams Industrial Painter Relationship Specialty Start Date End Date Victoria Saldana DO [address] [place] [address] PCP - General Family Medicine 02/20/22 documented as of this encounter
--- OUTSIDE RECORDS SUMMARY | 2024-01-21 09:23 | External Medical Summary ---
Author Name Unknown Address Unknown Organization K1F:LABORATORY [facility] - [address] [place] [address] [address] [place] [address] Laboratory Report Ordering Provider Test Date Status JAMEY FAROOQ 08/26/2023 05:01:47 Final Observation Date Value Abnormality Reference (Units ) Status WBC, Total 08/26/2023 05:01:47 5.95 4.00-10.80 (K/uL) Final RBC 08/26/2023 05:01:47 4.51 4.50-5.25 (M/uL) Final Hemoglobin 08/26/2023 05:01:47 13.4 Below low normal 14.0-16.8 (g/dL) Final HCT 08/26/2023 05:01:47 42.0 40.0-48.4 (%) Final MCV 08/26/2023 05:01:47 93.1 82.0-99.5 (fL) Final MCH 08/26/2023 05:01:47 29.7 27.0-34.0 (pg) Final MCHC 08/26/2023 05:01:47 31.9 32.0-36.0 (g/dL) Final RDW 08/26/2023 05:01:47 14.6 11.5-15.5 (%) Final Platelets 08/26/2023 05:01:47 181 140-400 (K/uL) Final MPV 08/26/2023 05:01:47 10.4 6.6-11.1 (fL) Final Nucleated erythrocytes/100 leukocytes [Ratio] in Blood by Automated count 08/26/2023 05:01:47 0 <=0 (/100 WBCs) Final Performing Location LABORATORY [facility] - [address] [facility] [address] [place] [address]
--- OUTSIDE RECORDS SUMMARY | 2024-01-21 09:23 | External Medical Summary | Summary of Care ---
Author Name Unknown Organization [facility] Address [address] [facility] [place] [address] Phone [phone] Care Team Providers Care Gate Guard Name Role Phone TyrelVictoria willingham Primary Care Provider + [phone] Encounter Details Date Type Department Care Team (Late st Contact Info) Description 09/01/2023 Population Health External Data Unspecified Department Allergies [...] the morning. 0 Active Multiple Vitamins-Minerals (MULTIVITAL [place]) TABS Take by mouth. 0 Active [...] hemoglobin A1c goal of less than 7.0% ([facility]),History of amputation of lesser toe [...] hemoglobin A1c goal of less than 8.0% ([facility]),DM type 2 with diabetic peripheral neuropathy ([facility]) Take 1 Tablet by mouth in the morning. 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 0 10/09/2022 Active Metoprolol Succinate ER 50 [...] Self - Management Plan Other/Additional Comments: contact [facility] for directions Exacerbation Plan Other/Additional [...] pain despite this dosing, they should call [facility]. 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 08/09/2019 Last Assessment & Plan: Reported d/t hammer toe Ischemic cardiomyopathy 05/05/2018 Coronary artery disease invo lving [place] coronary artery of [place] heart with angina pectoris 05/05/2018 Overview: July [...] mRNA, LNP-s, No Pre serve, 2-Dose Series ([employer]) 10/27/2020,10/06/2020 COVID-19, LNP-s, No Preserve , Ilan-sucrose, [...] AM EST Scheduled Telephone [facility], [facility] [address] [place] [address] Coordinator, [facility] [address] [place] [address] 09/01/2023 12:00 PM EST Scheduled Telephone [facility], [facility] [address] [facility] [place] [address] Cassandra Gomez, [address] [facility] [place] [address] 09/07/2023 8:40 AM EST Office Visit Podiatry, [facility] [address] [place] [address] Janis Mg DPM [address] [place] [address] 09/29/2023 12:30 PM EDT Office Visit [facility] Disorders Ctr [facility] [address] [facility] [place] [phone] Neela Brunner CRNP [address] [place] [address] 09/30/2023 1:30 PM EDT Office Visit Cardiology, [facility] [address] [facility] [place] [address] Tess Riddle PA-C [address] [place] [address] Health Maintenance Due Date Last Done Comments Hepatitis B (1 of 3 - Risk 3-dose series) 1995 COVID-19 Vaccine ( season) 2023 01/23/2022, 01/23/2022, 10/27/2020, Additional history exists CKD PHOS USE SMARTSET 68092 04/08/202303/21, 03/14/2021, 08/10/2017, Additional history exists HbA1c 06/11/2023 12/09/2022, 09/18, 04/08/2022, Additional history exists Diabetic Foot Exam 08/11/2023 08/11/2022, 0 11/01/2021, 01/02/2021, Additional history exists Diabetic Eye Exam 10/03/2023 10/02/2022, , 04/29/2021, Additional history exists Albumin/Creatinine Ratio 10/10/2023 023, 12/26/2021, 03/14/2021, Additional history exists B-12 12/10/2023 12/09/2022, 04/0 12/2021, 09/14/2020, Additional history exists Depression Screening 03/24/2024 03/24/2023, 05/27/20 17 CKD HGB USE SMARTSET 62671 08/31/202408/31, 08/31/2023, 08/26/2023, Additional history exists DTaP,Tdap,and [...] Documents on File Type Date Recorded 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 No Does the patient have Health Care Power of Greeter? No Code Status History Code Status Date Activated Date Inactivated Comments Full Code 07/23/2017 7:40 PM 07/26/2017 5:13 PM Question Answer Comments Discussion of Advance Direct alyssa occurred with: Not Discussed Healthcare Agents on File Name Relationship Healthcare Agent Relationshi p Communication Carlene Noyola Spouse Health Care Power of Attorn ey Care Teams Gate Guard Relationship Specialty Start Date End Date Victoria Saldana DO [address] [place] [address] PCP - General Family Medicine 02/20/22 documented as of this encounter
--- OUTSIDE RECORDS SUMMARY | 2024-01-21 09:23 | External Medical Summary ---
Author Name Unknown Address Unknown Organization K1F:LABORATORY [facility] - [address] [place] [address] Laboratory Report Ordering Provider Test Date Status MARIETTA ALCAZAR 08/31/2023 16:39:00 Final Observation Date Value Abnormality Reference (Units ) Status Lactic Acid, Whole Blood 08/31/2023 16:39:00 2.6 Above high normal 0.4-2.0 (mmol/L) Final Performing Location LABORATORY [facility] - [address] [place] [address]
--- OUTSIDE RECORDS SUMMARY | 2024-01-21 09:23 | External Medical Summary ---
Author Name Unknown Address Unknown Organization K1F:LABORATORY [facility] - [address] [facility] [address] [place] [address] Laboratory Report Ordering Provider Test Date Status JAMEY FAROOQ 08/26/2023 05:01:47 Final Observation Date Value Abnormality Reference (Units ) Status BUN 08/26/2023 05:01:47 31 Above high normal 6-20 (mg/dL) Final Creatinine 08/26/2023 05:01:47 1.2 0.6-1.2 (mg/dL) Final Glomerular filtration rate/1.73 sq M.predicted [Volume Rate/Area] in Serum, Plasma or Blood by Creatinine-based formula (CKD-EPI) 08/26/2023 05:01:47 58 Below low normal >=60 (mL/min) Final eGFR is calculated based on the CKD-EPI 2020 equation SODIUM 08/26/2023 05:01:47 142 135-146 (m mol/L) Final Potassium 08/26/2023 05:01:47 4.3 3.5-5.1 (m mol/L) Final Cl 08/26/2023 05:01:47 106 98-107 (mm ol/L) Final CO2 08/26/2023 05:01:47 24 22-32 (mmo l/L) Final Anion gap 08/26/2023 05:01:47 12 7-15 (mmol /L) Final Glucose 08/26/2023 05:01:47 117 70-120 (mg /dL) Final Albumin 08/26/2023 05:01:47 3.9 3.8-5.0 (g /dL) Final AST (Aspartate aminotransferase) 08/26/2023 05:01:47 17 10-50 (U/L) Final Alk Phos 08/26/2023 05:01:47 84 35-130 (U/ L) Final Bilirubin, Total 08/26/2023 05:01:47 0.5 <=1 .2 (mg/dL) Final Calcium 08/26/2023 05:01:47 9.1 8.4-10.2 ( mg/dL) Final Protein 08/26/2023 05:01:47 6.1 6.0-8.3 (g /dL) Final ALT (Alanine aminotransferase) 08/26/2023 05:01:47 19 10-50 (U/L) Final Performing Location LABORATORY [facility] - [facility] [place] [address]
--- OUTSIDE RECORDS SUMMARY | 2024-01-21 09:23 | External Medical Summary | Summary of Care ---
Author Name Unknown Organization [facility] Address [address] [facility] [place] [address] Phone [phone] Care Team Providers Care Inker And Opaquer Name Role Phone Shana Victoria Worthington DO Primary Care Provider + [phone] Reason for Visit * Reason Onset Date Comments [facility]: Maintenance 08/26/2023 Encounter Details Date Type Department Care Team (Late st Contact Info) Description 08/26/2023 1:45 PM EST Scheduled Telephone [facility], [facility] [address] [facility] [place] [address] [facility] [address] [facility] [place] [address] Allergies Active Allergy Reactions Criticality Noted Date Comments Meperidine Psych complications 05/27/2017 Confused documented as of this encounter (statuses as of 08/28/2023) Medications Medication Sig Dispensed Refills Start Date End Date Status OMEGA-3 FISH OIL 1000 MG PO CAPS one daily by mouth 0 A ctive Aspirin 81 MG Tablet Take 1 Tablet by mouth in the morning. 0 Active Multiple Vitamins-Minerals (MULTIVITAL [place]) TABS Take by mouth. 0 Active Blood Glucose Monitoring Suppl (ONETOUCH VERIO) w/Device KITIndications:DM type 2 nursing care encounter (HCC),Type 2 diabetes mellitus with hemoglobin A1c goal of less than 7.0% ([facility]),DM type 2 with diabetic peripheral neuropathy ([facility]) Use up to 4 times [...] by mouth in the morning. 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 0 10/09/2022 Active Metoprolol Succinate ER 50 [...] as of this encounter (statuses as of 08/28/2023) Active Problems Problem Noted Date Diagnosed Date [...] Self - Management Plan Other/Additional Comments: contact [facility] for directions Exacerbation Plan Other/Additional Comments: [...] pain despite this dosing, they should call [facility]. Open wound of second toe of left foot 10/11/2021 Last Assessment & Plan: 86-year-old diabetic male with open wounds on the 2nd and 3rd left toe needing home health wound care to ensure that he has proper healing. There is some noted drainage from these wounds. Plan: I will place a home health referral for wound care to [facility] health. My recommendations are to cleanse the [...] home health referral for wound care to [facility] health. 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 08/09/2019 Last Assessment & Plan: Reported d/t hammer toe Ischemic cardiomyopathy 05/05/2018 Coronary artery disease invo lving [place] coronary artery of eek heart with angina pectoris 05/05/2018 Overview: July [...] as of this encounter (statuses as of 08/28/2023) Resolved Problems Problem Noted Date Diagnosed Date [...] as of this encounter (statuses as of 08/28/2023) Immunizations Name Administration Dates Next Due COVID-19 mRNA, LNP-s, No Pre serve, 2-Dose Series ([employer]) 10/27/2020,10/06/2020 COVID-19, LNP-s, No Preserve , Ilan-sucrose, [...] 08/26/2023 2:04 PM EST Call placed to [facility]. Confirmed that patient is still at facility. Transferred to [facility] requesting a call back Per chart review patient had IDT 08/26. wants to bring patient home but unsure if that is the d/c plan at this time. CW will f/u next week for updates Cassandar Gomez Grain Operations Manager [facility] [email or web address] documented in this encounter Plan of Treatment Upcoming Encounters Date Type Department Care Team (Late st Contact Info) Description 09/01/2023 12:00 PM EST Scheduled Telephone [facility], [facility] [address] [facility] [place] [address] Cassandra Gomez CM [address] [facility] [place] [address] 09/29/2023 12:30 PM EDT Office Visit Sleep Disorders Ctr [facility] [address] [facility] [place] [phone] Neela Brunner CRNP [address] [facility] [place] [address] 09/30/2023 1:30 PM EDT Office Visit Cardiology, [facility] [address] 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 No Does the patient have Health Care Power of Salon Receptionist? No Code Status History Code Status Date Activated Date Inactivated Comments Full Code 07/23/2017 7:40 PM 07/26/2017 5:13 PM Question Answer Comments Discussion of Advance Direct alyssa occurred with: Not Discussed Healthcare Agents on File Name Relationship Healthcare Agent Relationshi p Communication Carlene Behrer Spouse Health Care Power of Attorn ey Care Teams Inker And Opaquer Relationship Specialty Start Date End Date Victoria Saldana DO [address] [facility] [place] [address] PCP - General Family Medicine 02/20/22 documented as of this encounter
--- OUTSIDE RECORDS SUMMARY | 2024-01-21 09:23 | External Medical Summary | Summary of Care ---
Author Name Unknown Organization [facility] Address [address] [place] [address] Phone [phone] Care Team Providers Care Time Clock Mechanic Name Role Phone TyrelVictoria willingham Primary Care Provider + [phone] Encounter Details Date Type Department Care Team (Late st Contact Info) Description 08/18/2023 Orders Only Lab Mobile Phlebotomy [facility] [address] [facility] [place] [id number] Beto Young MD [address] [facility] [address] [place] [address] HTN, goal below 140/90* Allergies Active Allergy Reactions Criticality Noted Date Comments Meperidine Psych complications 05/27/2017 Confused documented as of this encounter (statuses as of 08/18/2023) Medications Medication Sig Dispensed Refills Start Date [...] A1c goal of less than 7.0% ([facility]),DM type 2 with diabetic peripheral neuropathy (HCC) Use up to 4 times a day E11.9 1 Kit 0 07/04/2019 Active Glucose Blood (ONETOUCH VERIO) STRPIndications:DM type 2 nursing care encounter ([facility]),Type 2 diabetes mellitus with hemoglobin A1c goal of less than 7.0% ([facility]),DM type 2 with diabetic peripheral neuropathy (HCC) Use up to 4 times a day E11.9 300 Strip 3 07/18/2019 Active Misc. DevicesIndications :Type 2 diabetes mellitus with hemoglobin A1c goal of less than 7.0% ([facility]),History of amputation of lesser toe of left foot (HCC),DM type 2 with diabetic peripheral neuropathy ([facility]) Please custom fit/dispense one pair [...] 30GIndications:DM type 2 with diabetic peripheral neuropathy ([facility]) Use to test blood sugars once daily 100 Each 3 05/05/2022 Active Biotin 5 MG Oral Capsule Take 1 Capsule by mouth in the morning. 30 Capsule 0 05/14/2022 Active Empagliflozin 25 MG Oral TabletIndications: Type 2 diabetes mellitus with hemoglobin A1c goal of less than 8.0% ([facility]),DM type 2 with diabetic peripheral neuropathy ([facility]) Take 1 Tablet by mouth in the morning. (gets from seam hammerer). 0 10/09/2022 Active Metoprolol Succinate ER 50 [...] as of this encounter (statuses as of 08/18/2023) Active Problems Problem Noted Date Diagnosed Date [...] Self - Management Plan Other/Additional Comments: contact [facility] for directions Exacerbation Plan Other/Additional Comments: comfort [...] pain despite this dosing, they should call [facility]. Open wound of second toe of left foot 10/11/2021 Last Assessment & Plan: 86-year-old diabetic male with open wounds on the 2nd and 3rd left toe needing home health wound care to ensure that he has proper healing. There is some noted drainage from these wounds. Plan: I will place a home health referral for wound care to [facility] health. My recommendations are [...] home health referral for wound care to [facility] health. 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 t 08/09/2019 Last Assessment & Plan: Reported d/t hammer toe Ischemic cardiomyopathy 05/05/2018 Coronary artery disease invo lving [place] coronary artery of [place] heart with angina pectoris 05/05/2018 Overview: July [...] as of this encounter (statuses as of 08/18/2023) Resolved Problems Problem Noted Date Diagnosed Date [...] as of this encounter (statuses as of 08/18/2023) Immunizations Name Administration Dates Next Due COVID-19 mRNA, LNP-s, No Pre serve, 2-Dose Series ([employer]) 10/27/2020,10/06/2020 COVID-19, LNP-s, No Preserve , Ilan-sucrose, [...] Care Team (Late st Contact Info) Description 08/19/2023 12:20 AM EST Laboratory Lab Mobile Phlebotomy [facility] [address] [place] [address] [place], [facility] Mobile [place] [place] [address] 09/29/2023 12:30 PM EDT Office Visit Sleep Disorders Ctr [facility] [address] [place] [phone] Neela Brunner CRNP [address] [facility] [place] [address] 09/30/2023 1:30 PM EDT Office Visit Cardiology, [facility] [address] [facility] [place] [address] Tess Riddle PA-C [address] [place] [address] Scheduled Orders Name Type Priority Associated Diagnoses Orde r Schedule CBC Lab Routine HTN, goal below 140/90 Expected: 08/19/2023, Expires: 08/18/2024 COMPREHENSIVE METABOLIC PANEL Lab Routine HTN, goal below 140/90 Expected: 08/19/2023, Expires: 08/18/2024 Health Maintenance Due Date Last Done Comments Hepatitis B (1 of 3 - Risk 3-dose series) 1995 COVID-19 Vaccine ( season) 2023 01/23/2022, 10/27/2020, 10/06/2020 CKD PHOS USE SMARTSET 78696 04/08/202303/21, 03/14/2021, 08/10/2017, Additional history exists HbA1c 06/11/2023 12/09/2022, 09/18, 04/08/2022, Additional history exists Diabetic Foot Exam 08/11/2023 08/11/2022, 0 11/01/2021, 01/02/2021, Additional history exists Diabetic Eye Exam 10/03/2023 10/02/2022, , 04/29/2021, Additional history exists Albumin/Creatinine Ratio 10/10/2023 023, 12/26/2021, 03/14/2021, Additional history exists CKD HGB USE SMARTSET 21396 11/21/202311/20, 02/20/2022, 02/20/2022, Additional history exists B-12 [...] as of this encounter Visit Diagnoses Diagnosis HTN, goal below 140/90- Primary Unspecified essential hypertension documented in this encounter Additional Health Concerns Infection Onset Date Last Indicated Resolved Time 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 No Does the patient have Health Care Power of Blanket Winder Operator? No Code Status History Code Status Date Activated Date Inactivated Comments Full Code 07/23/2017 7:40 PM 07/26/2017 5:13 PM Question Answer Comments Discussion of Advance Direct alyssa occurred with: Not Discussed Healthcare Agents on File Name Relationship Healthcare Agent Relationshi p Communication Carlene Behrer Spouse Health Care Power of Attorn ey Care Teams Time Clock Mechanic Relationship Specialty Start Date End Date Victoria Saldana DO [address] [place] [address] PCP - General Family Medicine 02/20/22 documented as of this encounter
--- OUTSIDE RECORDS SUMMARY | 2024-01-21 09:23 | External Medical Summary ---
Author Name Unknown Address Unknown Organization K1F:LABORATORY [facility] - [address] [place] [address] Laboratory Report Ordering Provider Test Date Status MARIETTA ALCAZAR 08/31/2023 16:39:00 Final Warfarin Therapy
INR: 2 .0-3.0 conventional anticoagulation
INR: 2.5- 3.5 high intensity anticoagulation Observation Date Value Abnormality Reference (Units ) Status PT 08/31/2023 16:39:00 13.8 11.6-15.2 (seconds) Final INR 08/31/2023 16:39:00 1.1 0.8-1.2 Final Performing Location LABORATORY [facility] - [address] [place] [address]
--- OUTSIDE RECORDS SUMMARY | 2024-01-21 09:23 | External Medical Summary ---
Author Name Unknown Address Unknown Organization K1F:LABORATORY [facility] - [facility] [address] [place] [address] Laboratory Report Ordering Provider Test Date Status MARIETTA ALCAZAR 08/31/2023 16:39:00 Final Observation Date Value Abnormality Reference (Units ) Status WBC, Total 08/31/2023 16:39:00 7.62 4.00-10.80 (K/uL) Final RBC 08/31/2023 16:39:00 4.55 4.50-5.25 (M/uL) Final Hemoglobin 08/31/2023 16:39:00 13.8 Below low normal 14.0-16.8 (g/dL) Final HCT 08/31/2023 16:39:00 42.3 40.0-48.4 (%) Final MCV 08/31/2023 16:39:00 93.0 82.0-99.5 (fL) Final MCH 08/31/2023 16:39:00 30.3 27.0-34.0 (pg) Final MCHC 08/31/2023 16:39:00 32.6 32.0-36.0 (g/dL) Final RDW 08/31/2023 16:39:00 14.6 11.5-15.5 (%) Final Platelets 08/31/2023 16:39:00 194 140-400 (K/uL) Final MPV 08/31/2023 16:39:00 10.1 6.6-11.1 (fL) Final Nucleated erythrocytes/100 leukocytes [Ratio] in Blood by Automated count 08/31/2023 16:39:00 0 <=0 (/100 WBCs) Final Performing Location LABORATORY [facility] - [address] [place] [address]
--- OUTSIDE RECORDS SUMMARY | 2024-01-21 09:23 | External Medical Summary ---
Author Name Unknown Address Unknown Organization K1F:LABORATORY [facility] - [address] [place] [address] Laboratory Report Ordering Provider Test Date Status MARIETTA ALCAZAR 08/31/2023 19:01:00 Final Observation Date Value Abnormality Reference (Units ) Status Troponin T 08/31/2023 19:01:00 55 Above high normal < =22 (ng/L) Final Performing Location LABORATORY [facility] - [address] [place] [address]
--- OUTSIDE RECORDS SUMMARY | 2024-01-21 09:23 | External Medical Summary | Summary of Care ---
Author Name Unknown Organization [facility] Address [address] [place] [address] Phone [phone] Care Team Providers Care Procedure Writer Name Role Phone TyrelVictoria willingham Primary Care Provider + [phone] Encounter Details Date Type Department Care Team (Late st Contact Info) Description 08/25/2023 Orders Only Lab Mobile Phlebotomy GL [address] [facility] [place] [id number] Beto Young MD [address] [facility] 1 [place] [address] HTN, goal below 140/90* Allergies Active Allergy Reactions Criticality Noted Date Comments Meperidine Psych complications 05/27/2017 Confused documented as of this encounter (statuses as of 08/25/2023) Medications Medication Sig Dispensed Refills Start Date End Date Status OMEGA-3 FISH OIL 1000 MG PO CAPS one daily by mouth 0 A ctive Aspirin 81 MG Tablet Take 1 Tablet by mouth in the morning. 0 Active Multiple Vitamins-Minerals (MULTIVITAL [place]) TABS Take by mouth. 0 Active Blood Glucose Monitoring Suppl (ONETOUCH VERIO) w/Device KITIndications:DM type 2 nursing care encounter (HCC),Type 2 diabetes mellitus with hemoglobin A1c goal of less than 7.0% ([facility]),DM type 2 with diabetic peripheral neuropathy (HCC) Use up to 4 times a day E11.9 1 Kit 0 07/04/2019 Active Glucose Blood (ONETOUCH VERIO) STRPIndications:DM type 2 nursing care encounter ([facility]),Type 2 diabetes mellitus with hemoglobin A1c goal of less than 7.0% ([facility]),DM type 2 with diabetic peripheral neuropathy (HCC) Use up to 4 times a day E11.9 300 Strip 3 07/18/2019 Active Misc. DevicesIndications :Type 2 diabetes mellitus with hemoglobin A1c goal of less than 7.0% (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) Please custom fit/dispense one pair diabetic [...] 30GIndications:DM type 2 with diabetic peripheral neuropathy ([facility]) Use to test blood sugars once [...] by mouth in the morning. (gets from radiator tester). 0 10/09/2022 Active Metoprolol Succinate ER 50 [...] as of this encounter (statuses as of 08/25/2023) Active Problems Problem Noted Date Diagnosed Date [...] Plan Other/Additional Comments: contact [facility] for directions Exacerbation Plan Other/Additional Comments: comfort [...] dosing, they should call [facility]. Open wound of second toe of left foot 10/11/2021 Last Assessment & Plan: 86-year-old diabetic male with open wounds on the 2nd and 3rd left toe needing home health wound care to ensure that he has proper healing. There is some noted drainage from these wounds. Plan: I will place a home health referral for wound care to [facility]. My recommendations are to [...] home health referral for wound care to [facility]. 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 08/09/2019 Last Assessment & Plan: Reported d/t hammer toe Ischemic cardiomyopathy 05/05/2018 Coronary artery disease invo lving [place] coronary artery of [place] heart with angina pectoris 05/05/2018 Overview: July [...] as of this encounter (statuses as of 08/25/2023) Resolved Problems Problem Noted Date Diagnosed Date [...] as of this encounter (statuses as of 08/25/2023) Immunizations Name Administration Dates Next Due COVID-19 mRNA, LNP-s, No Pre serve, 2-Dose Series ([employer] Resume) 10/27/2020,10/06/2020 COVID-19, LNP-s, No Preserve , Ilan-sucrose, [...] Team (Late st Contact Info) Description 08/26/2023 3:10 AM EST Laboratory Lab Mobile Phlebotomy [facility] [address] [place] [address] [place], [facility] Mobile [place] [address] [facility] [address] [place] [address] 08/26/2023 1:45 PM EST Scheduled Telephone [facility], [facility] [address] [place] [address] Cassandra Gomez, [address] [place] [address] 09/29/2023 12:30 PM EDT Office Visit Sleep Disorders Ctr [facility] [address] [facility] [place] [phone] Neela Brunner CRNP [address] [facility] [place] [address] 09/30/2023 1:30 PM EDT Office Visit Cardiology, [facility] [address] [facility] [place] [address] Tess Riddle PA-C [address] [place] [address] Scheduled Orders Name Type Priority Associated Diagnoses Orde r Schedule CBC Lab Routine HTN, goal below 140/90 Expected: 08/26/2023, Expires: 08/25/2024 COMPREHENSIVE METABOLIC PANEL Lab Routine HTN, goal below 140/90 Expected: 08/26/2023, Expires: 08/25/2024 Health Maintenance Due Date Last Done Comments Hepatitis B (1 of 3 - Risk 3-dose series) 1995 COVID-19 Vaccine ( season) 2023 01/23/2022, 10/27/2020, 10/06/2020 CKD PHOS USE SMARTSET 16792 04/08/202303/21, 03/14/2021, 08/10/2017, Additional history exists HbA1c 06/11/2023 12/09/2022, 09/18, 04/08/2022, Additional history exists Diabetic Foot Exam 08/11/2023 08/11/2022, 0 11/01/2021, 01/02/2021, Additional history exists Diabetic Eye Exam 10/03/2023 10/02/2022, , 04/29/2021, Additional history exists Albumin/Creatinine Ratio 10/10/2023 023, 12/26/2021, 03/14/2021, Additional history exists B-12 12/10/2023 12/09/2022, 04/0 12/2021, 09/14/2020, Additional history exists Depression Screening 03/24/2024 03/24/2023, 05/27/20 17 CKD HGB USE SMARTSET 45909 08/19/202408/19, 11/20/2022, 02/20/2022, Additional history exists DTaP,Tdap,and Td Vaccines (2 [...] Documents on File Type Date Recorded Patient Music Professionals Expl anation POLST 08/11/2022 [place] [facility] FOR LIFE-SUSTAINING TREATMENT [place] DEPT OF HEALTH Advance Directives and Living Will 06/30/2014 ADVANCE DIRECTIVE Latest Code Status on File Code Status Date Activated Date Inactivated Comments Full Code 08/03/2017 11:04 PM 08/10/2017 6:40 PM Question Answer Comments Discussion of Advance Direct alyssa occurred with: Not Discussed Does the patient have a Living Will? No Does the patient have Health Care Power of Corporate Quality Manager? No Code Status History Code Status Date Activated Date Inactivated Comments Full Code 07/23/2017 7:40 PM 07/26/2017 5:13 PM Question Answer Comments Discussion of Advance Direct alyssa occurred with: Not Discussed Healthcare Agents on File Name Relationship Healthcare Agent Relationshi p Communication Carlene Behwardmarshall Spouse Health Care Power of Attorn ey Care Teams Procedure Writer Relationship Specialty Start Date End Date Victoria Saldana DO [address] [place] [address] PCP - General Family Medicine 02/20/22 documented as of this encounter
--- OUTSIDE RECORDS SUMMARY | 2024-01-21 09:23 | External Medical Summary ---
Author Name Unknown Address Unknown Organization K1F:LABORATORY [facility] - [address] [facility] [place] [address] Laboratory Report Ordering Provider Test Date Status JAMEY FAROOQ 08/19/2023 07:38:18 Final Observation Date Value Abnormality Reference (Units ) Status BUN 08/19/2023 07:38:18 30 Above high normal 6-20 (mg/dL) Final Creatinine 08/19/2023 07:38:18 0.9 0.6-1.2 (mg/dL) Final Glomerular filtration rate/1.73 sq M.predicted [Volume Rate/Area] in Serum, Plasma or Blood by Creatinine-based formula (CKD-EPI) 08/19/2023 07:38:18 78 >=60 (mL/min) Final eGFR is calculated based on the CKD-EPI 2020 equation SODIUM 08/19/2023 07:38:18 142 135-146 (m mol/L) Final Potassium 08/19/2023 07:38:18 4.7 3.5-5.1 (m mol/L) Final Cl 08/19/2023 07:38:18 105 98-107 (mm ol/L) Final CO2 08/19/2023 07:38:18 27 22-32 (mmo l/L) Final Anion gap 08/19/2023 07:38:18 10 7-15 (mmol /L) Final Glucose 08/19/2023 07:38:18 160 Above high normal 70 -120 (mg/dL) Final Albumin 08/19/2023 07:38:18 4.1 3.8-5.0 (g /dL) Final AST (Aspartate aminotransferase) 08/19/2023 07:38:18 29 10-50 (U/L) Fin al Alk Phos 08/19/2023 07:38:18 107 35-130 (U/ L) Final Bilirubin, Total 08/19/2023 07:38:18 0.4 <=1 .2 (mg/dL) Final Calcium 08/19/2023 07:38:18 9.3 8.4-10.2 ( mg/dL) Final Protein 08/19/2023 07:38:18 6.7 6.0-8.3 (g /dL) Final ALT (Alanine aminotransferase) 08/19/2023 07:38:18 34 10-50 (U/L) Fernando barrera Performing Location LABORATORY [address] [place] [address]
--- OUTSIDE RECORDS SUMMARY | 2024-01-21 09:23 | External Medical Summary | Summary of Care ---
Author Name Unknown Organization [facility] Address [address] [place] [address] Phone [phone] Care Team Providers Care Commissary Assistant Name Role Phone Shana Victoria Worthington DO Primary Care Provider + [phone] Reason for Visit * Reason Onset Date Comments [facility]: Maintenance 08/19/2023 Encounter Details Date Type Department Care Team (Late st Contact Info) Description 08/19/2023 Telephone [facility] [place], [address] [address] [facility], Nurse [address] [phone] [facility]: Maintenance Allergies Active Allergy Reactions Criticality Noted Date Comments Meperidine Psych complications 05/27/2017 Confused documented as of this encounter (statuses as of 08/19/2023) Medications Medication Sig Dispensed Refills Start Date End Date Status OMEGA-3 FISH OIL 1000 MG PO CAPS one daily by mouth 0 A ctive Aspirin 81 MG Tablet Take 1 Tablet by mouth in the morning. 0 Active Multiple Vitamins-Minerals (MULTIVITAL [place]) TABS Take by mouth. 0 Active Blood Glucose Monitoring Suppl (ONETOUCH VERIO) w/Device KITIndications:DM type 2 nursing care encounter ([facility]),Type 2 diabetes mellitus with hemoglobin A1c goal of less than 7.0% ([facility]),DM type 2 with diabetic peripheral neuropathy ([facility]) Use up to 4 times [...] by mouth in the morning. (gets from digital project manager). 0 10/09/2022 Active Metoprolol Succinate [...] as of this encounter (statuses as of 08/19/2023) Active Problems Problem Noted Date Diagnosed Date [...] Self - Management Plan Other/Additional Comments: contact [facility] for directions Exacerbation Plan Other/Additional Comments: [...] pain despite this dosing, they should call [facility]. Open wound of second toe of left foot 10/11/2021 Last Assessment & Plan: 86-year-old diabetic male with open wounds on the 2nd and 3rd left toe needing home health wound care to ensure that he has proper healing. There is some noted drainage from these wounds. Plan: I will place a home health referral for wound care to [facility]. My recommendations are to cleanse the [...] home health referral for wound care to [facility]. 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 08/09/2019 Last Assessment & Plan: Reported d/t hammer toe Ischemic cardiomyopathy 05/05/2018 Coronary artery disease invo lving [place] coronary artery of [place] heart with angina pectoris 05/05/2018 Overview: July [...] as of this encounter (statuses as of 08/19/2023) Resolved Problems Problem Noted Date Diagnosed Date [...] as of this encounter (statuses as of 08/19/2023) Immunizations Name Administration Dates Next Due COVID-19 mRNA, LNP-s, No Pre serve, 2-Dose Series ([employer]) 10/27/2020,10/06/2020 COVID-19, LNP-s, No Preserve , Ilan-sucrose, [...] encounter Miscellaneous Notes * Telephone Encounter - An Romero LPN - 08/19/2023 1:22 PM EST Per Billie D/c to [facility] Added to Cassandra Gomez to follow documented in this encounter Plan of Treatment Upcoming Encounters Date Type Department Care Team (Late st Contact Info) Description 08/26/2023 1:45 PM EST Scheduled Telephone [facility], [facility] [address] [facility] [place] [address] Cassandra Gomez, [address] [facility] [place] [address] 09/29/2023 12:30 PM EDT Office Visit Sleep Disorders Ctr [facility] [address] [facility] [place] [phone] Neela Brunner CRNP [address] [facility] [place] [address] 09/30/2023 1:30 PM EDT Office Visit Cardiology, [facility] [address] [facility] [place] [address] Tess Riddle PA-C [address] [place] [address] Health Maintenance Due Date Last Done Comments Hepatitis B (1 of 3 - Risk 3-dose series) 1995 COVID-19 Vaccine ( season) 2023 01/23/2022, 10/27/2020, 10/06/2020 CKD PHOS USE SMARTSET 79651 04/08/202303/21, 03/14/2021, 08/10/2017, Additional history exists HbA1c 06/11/2023 12/09/2022, 09/18, 04/08/2022, Additional history exists Diabetic Foot Exam 08/11/2023 08/11/2022, 0 11/01/2021, 01/02/2021, Additional history exists Diabetic Eye Exam 10/03/2023 10/02/2022, , 04/29/2021, Additional history exists Albumin/Creatinine Ratio 10/10/2023 023, 12/26/2021, 03/14/2021, Additional history exists B-12 12/10/2023 12/09/2022, 04/0 12/2021, 09/14/2020, Additional history exists Depression Screening 03/24/2024 03/24/2023, 05/27/20 17 CKD HGB USE SMARTSET 88676 08/19/202408/19, 11/20/2022, 02/20/2022, Additional history exists DTaP,Tdap,and [...] Documents on File Type Date Recorded Patient Crack Off Person Lisa KUHN 08/11/2022 [place] OR [facility] FOR LIFE-SUSTAINING TREATMENT [place] DEPT OF HEALTH Advance Directives and Living Will 06/30/2014 ADVANCE DIRECTIVE Latest Code Status on File Code Status Date Activated Date Inactivated Comments Full Code 08/03/2017 11:04 PM 08/10/2017 6:40 PM Question Answer Comments Discussion of Advance Direct alyssa occurred with: Not Discussed Does the patient have a Living Will? No Does the patient have Health Care Power of Bistro Server? No Code Status History Code Status Date Activated Date Inactivated Comments Full Code 07/23/2017 7:40 PM 07/26/2017 5:13 PM Question Answer Comments Discussion of Advance Direct alyssa occurred with: Not Discussed Healthcare Agents on File Name Relationship Healthcare Agent Relationshi p Communication Carlene Noyola Spouse Health Care Power of Attorn ey Care Teams Commissary Assistant Relationship Specialty Start Date End Date Victoria Saldana DO [address] [facility] [place] [address] PCP - General Family Medicine 02/20/22 documented as of this encounter
--- OUTSIDE RECORDS SUMMARY | 2024-01-21 09:23 | External Medical Summary ---
Author Name Unknown Address Unknown Organization K1F:LABORATORY [facility] - [address] [place] [address] [address] [place] [address] Laboratory Report Ordering Provider Test Date Status JAMEY FAROOQ 08/19/2023 07:38:18 Final Observation Date Value Abnormality Reference (Units ) Status WBC, Total 08/19/2023 07:38:18 6.67 4.00-10.80 (K/uL) Final RBC 08/19/2023 07:38:18 4.71 4.50-5.25 (M/uL) Final Hemoglobin 08/19/2023 07:38:18 14.2 14.0-16.8 (g/dL) Final HCT 08/19/2023 07:38:18 44.5 40.0-48.4 (%) Final MCV 08/19/2023 07:38:18 94.5 82.0-99.5 (fL) Final MCH 08/19/2023 07:38:18 30.1 27.0-34.0 (pg) Final MCHC 08/19/2023 07:38:18 31.9 32.0-36.0 (g/dL) Final RDW 08/19/2023 07:38:18 14.6 11.5-15.5 (%) Final Platelets 08/19/2023 07:38:18 219 140-400 (K/uL) Final MPV 08/19/2023 07:38:18 10.0 6.6-11.1 (fL) Final Nucleated erythrocytes/100 leukocytes [Ratio] in Blood by Automated count 08/19/2023 07:38:18 0 <=0 (/100 WBCs) Final Performing Location LABORATORY [facility] - [address] [facility] [address] [place] [address]
--- OUTSIDE RECORDS SUMMARY | 2024-01-21 09:23 | External Medical Summary ---
Author Name Unknown Address Unknown Organization K1F:LABORATORY [facility] - [address] [place] [address] Laboratory Report Ordering Provider Test Date Status MARIETTA ALCAZAR 08/31/2023 16:39:00 Final Observation Date Value Abnormality Reference (Units ) Status Ethanol 08/31/2023 16:39:00 Negative Negative Final Performing Location LABORATORY [facility] - [address] [place] [address]
--- OUTSIDE RECORDS SUMMARY | 2024-01-21 09:23 | External Medical Summary ---
Author Name Unknown Address Unknown Organization K1F:LAB[facility]ATORY [facility] - [address] [facility] [place] [address] Laboratory Report Ordering Provider Test Date Status MARIETTA ALCAZAR 08/31/2023 16:39:00 Final Observation Date Value Abnormality Reference (Units ) Status BUN 08/31/2023 16:39:00 24 Above high normal 6-20 (mg/dL) Final Creatinine 08/31/2023 16:39:00 1.1 0.6-1.2 (mg/dL) Final Glomerular filtration rate/1.73 sq M.predicted [Volume Rate/Area] in Serum, Plasma or Blood by Creatinine-based formula (CKD-EPI) 08/31/2023 16:39:00 63 >=60 (mL/min) Final eGFR is calculated based on the CKD-EPI 2020 equation SODIUM 08/31/2023 16:39:00 143 135-146 (m mol/L) Final Potassium 08/31/2023 16:39:00 4.1 3.5-5.1 (m mol/L) Final Cl 08/31/2023 16:39:00 107 98-107 (mm ol/L) Final CO2 08/31/2023 16:39:00 24 22-32 (mmo l/L) Final Anion gap 08/31/2023 16:39:00 12 7-15 (mmol /L) Final Glucose 08/31/2023 16:39:00 152 Above high normal 70 -120 (mg/dL) Final Albumin 08/31/2023 16:39:00 3.6 Below low normal 3.8 -5.0 (g/dL) Final AST (Aspartate aminotransferase) 08/31/2023 16:39:00 19 10-50 (U/L) Fin al Alk Phos 08/31/2023 16:39:00 91 35-130 (U/ L) Final Bilirubin, Total 08/31/2023 16:39:00 0.4 <=1 .2 (mg/dL) Final Calcium 08/31/2023 16:39:00 9.1 8.4-10.2 ( mg/dL) Final Protein 08/31/2023 16:39:00 6.5 6.0-8.3 (g /dL) Final ALT (Alanine aminotransferase) 08/31/2023 16:39:00 16 10-50 (U/L) Fernando barrera Performing Location LABORATORY [facility] - [address] [place] [address] [place] [address]
--- OUTSIDE RECORDS SUMMARY | 2024-01-21 09:24 | External Medical Summary | Summary of Care ---
Author Name Unknown Organization [facility] Address [address] [facility] [place] [address] Phone [phone] Care Team Providers Care Medical Microbiologist Name Role Phone TyrelVictoria willingham Primary Care Provider + [phone] Encounter Details Date Type Department Care Team (Late st Contact Info) Description 07/30/2023 Population Health External Data Unspecified Department Allergies Active Allergy Reactions Criticality Noted Date Comments Meperidine Psych complications 05/27/2017 Confused documented as of this encounter (statuses as of 08/03/2023) Medications Medication Sig Dispensed Refills Start Date End Date Status OMEGA-3 FISH OIL 1000 MG PO CAPS one daily by mouth 0 A ctive Aspirin 81 MG Tablet Take 1 Tablet by mouth in the morning. 0 Active Multiple Vitamins-Minerals (MULTIVITAL ATMAUTLUAK) TABS Take by mouth. 0 Active Blood [...] hemoglobin A1c goal of less than 7.0% ([facility]),History of amputation of lesser toe of left [...] hemoglobin A1c goal of less than 8.0% ([facility]),DM type 2 with diabetic peripheral neuropathy ([facility]) Take 1 Tablet by mouth in the morning. (gets from quality control expert). 0 10/09/2022 Active Metoprolol Succinate ER 50 [...] as of this encounter (statuses as of 08/03/2023) Active Problems Problem Noted Date Diagnosed Date [...] home health referral for wound care to [facility] home health. My recommendations are to [...] home health referral for wound care to [facility] home health. 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 t 08/09/2019 Last Assessment & Plan: Reported d/t hammer toe Ischemic cardiomyopathy 05/05/2018 Coronary artery disease invo lving [place] coronary artery of [place] heart with angina pectoris 05/05/2018 Overview: July [...] as of this encounter (statuses as of 08/03/2023) Resolved Problems Problem Noted Date Diagnosed Date [...] as of this encounter (statuses as of 08/03/2023) Immunizations Name Administration Dates Next Due COVID-19 mRNA, LNP-s, No Pre serve, 2-Dose Series ([employer]) 10/27/2020,10/06/2020 COVID-19, LNP-s, No Preserve , Ilan-sucrose, [...] Care Team (Late st Contact Info) Description 08/06/2023 11:00 AM EST Office Visit Infectious Disease [facility] [place] [address] [place] [address] Tamir Mccray MD [address] [facility] [place] [address] 09/29/2023 12:30 PM EDT Office Visit [facility] [address] [facility] [place] [id number] Neela Brunner CRNP [address] [facility] [place] [address] 09/30/2023 1:30 PM EDT Office Visit Cardiology, [facility] [address] [facility] [place] [address] Tess Riddle PA-C [address] [place] [address] Health Maintenance Due Date Last Done Comments Hepatitis B (1 of 3 - Risk 3-dose series) 1995 COVID-19 Vaccine ( season) 2023 01/23/2022, 10/27/2020, 10/06/2020 CKD PHOS USE SMARTSET 84891 04/08/202303/21, 03/14/2021, 08/10/2017, Additional history exists HbA1c 06/11/2023 12/09/2022, 09/18, 04/08/2022, Additional history exists Diabetic Foot Exam 08/11/2023 08/11/2022, 0 11/01/2021, 01/02/2021, Additional history exists Diabetic Eye Exam 10/03/2023 10/02/2022, , 04/29/2021, Additional history exists Albumin/Creatinine Ratio 10/10/2023 023, 12/26/2021, 03/14/2021, Additional history exists CKD HGB USE SMARTSET 66504 11/21/202311/20, 02/20/2022, 02/20/2022, Additional history exists B-12 [...] Documents on File Type Date Recorded Patient Extrusion Supervisor Expl anation POL 08/11/2022 [place] [facility] FOR LIFE-SUSTAINING TREATMENT [place] DEPT OF HEALTH Advance Directives and Living Will 06/30/2014 ADVANCE DIRECTIVE Latest Code Status on File Code Status Date Activated Date Inactivated Comments Full Code 08/03/2017 11:04 PM 08/10/2017 6:40 PM Question Answer Comments Discussion of Advance Direct alyssa occurred with: Not Discussed Does the patient have a Living Will? No Does the patient have Health Care Power of Live Ammunition Inspector? No Code Status History Code Status Date Activated Date Inactivated Comments Full Code 07/23/2017 7:40 PM 07/26/2017 5:13 PM Question Answer Comments Discussion of Advance Direct alyssa occurred with: Not Discussed Healthcare Agents on File Name Relationship Healthcare Agent Relationshi p Communication Carlene Behrer Spouse Health Care Power of Attorn ey Care Teams Medical Microbiologist Relationship Specialty Start Date End Date Victoria Saldana DO [address] [place] [address] PCP - General Family Medicine 02/20/22 documented as of this encounter
--- OUTSIDE RECORDS SUMMARY | 2024-01-21 09:24 | External Medical Summary | Summary of Care ---
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 Name Role Phone Victoria Saldana DO Primary Care Provider Reason for Visit * Reason Onset Date Comments Information 08/03/202308/03 Encounter Details Date Type Department Care Team (Late st Contact Info) Description 08/03/2023 Telephone [facility] [address] [place] [address] Victoria Saldana DO [address] [place], [place] [id number] Information (08/03) Allergies Active Allergy Reactions Criticality Noted Date Comments Meperidine Psych complications 05/27/2017 Confused documented as of this encounter (statuses as of 08/04/2023) Medications Medication Sig Dispensed Refills Start Date End Date Status OMEGA-3 FISH OIL 1000 MG PO CAPS one daily by mouth 0 A ctive Aspirin 81 MG Tablet Take 1 Tablet by mouth in the morning. 0 Active Multiple Vitamins-Minerals (MULTIVITAL LUMMI) TABS Take by mouth. 0 Active Blood Glucose Monitoring Suppl (ONETOUCH VERIO) w/Device KITIndications:DM type 2 nursing care encounter ([facility]),Type 2 diabetes mellitus with hemoglobin A1c goal of less than 7.0% ([facility]),DM type 2 with diabetic peripheral neuropathy ([facility]) Use up to 4 times a day [...] by mouth in the morning. (gets from financial systems director). 0 10/09/2022 Active Metoprolol Succinate ER [...] as of this encounter (statuses as of 08/04/2023) Active Problems Problem Noted Date Diagnosed Date [...] home health referral for wound care to [facility] health. My recommendations are to [...] referral for wound care to [facility]. 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 t 08/09/2019 Last Assessment & Plan: Reported d/t hammer toe Ischemic cardiomyopathy 05/05/2018 Coronary artery disease invo lving [place] coronary artery of [place] heart with angina pectoris 05/05/2018 Overview: July [...] as of this encounter (statuses as of 08/04/2023) Resolved Problems Problem Noted Date Diagnosed Date [...] as of this encounter (statuses as of 08/04/2023) Immunizations Name Administration Dates Next Due COVID-19 mRNA, LNP-s, No Pre serve, 2-Dose Series ([employer]) 10/27/2020,10/06/2020 COVID-19, LNP-s, No Preserve , Ilan-sucrose, [...] Telephone Encounter - Victoria Saldana DO - 08/04/2023 8:00 AM EST Noted. * Telephone Encounter - Joie Mohan LPN - 08/03/2023 4:53 PM EST Spoke to Treasury Management Sales Consultant Amanda at [facility] and notified her that pt was removed from [facility] by his . Amanda also notified that Dr. Saldana did contact the [facility] and per [facility], adult protective services is to be notified if tries to take him home. Requested that [facility] CM notify Dr. Saldana of d/c disposition for pt when determined. documented in this encounter Plan of Treatment Upcoming Encounters Date Type Department Care Team (Late st Contact Info) Description 08/06/2023 11:00 AM EST Office Visit Infectious Disease [facility] [address] [place] [address] Tamir Mccray MD [address] [place] [address] 09/29/2023 12:30 PM EDT Office [facility] [phone] Neela Brunner CRNP [address] [facility] [place] [address] 09/30/2023 1:30 PM EDT Office Visit Cardiology, [facility] [address] [facility] [place] [address] Tess Riddle PA-C [address] [place], [place] [address], [place] [phone] Health Maintenance Due Date Last Done Comments Hepatitis B (1 of 3 - Risk 3-dose series) 1995 COVID-19 Vaccine ( season) 2023 01/23/2022, 10/27/2020, 10/06/2020 CKD PHOS USE SMARTSET 54193 04/08/202303/21, 03/14/2021, 08/10/2017, Additional history exists HbA1c 06/11/2023 12/09/2022, 09/18, 04/08/2022, Additional history exists Diabetic Foot Exam 08/11/2023 08/11/2022, 0 11/01/2021, 01/02/2021, Additional history exists Diabetic Eye Exam 10/03/2023 10/02/2022, , 04/29/2021, Additional history exists Albumin/Creatinine Ratio 10/10/2023 023, 12/26/2021, 03/14/2021, Additional history exists CKD HGB USE SMARTSET 48636 11/21/202311/20, 02/20/2022, 02/20/2022, Additional history exists B-12 [...] Documents on File Type Date Recorded 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 No Code Status History Code Status Date Activated Date Inactivated Comments Full Code 07/23/2017 7:40 PM 07/26/2017 5:13 PM Question Answer Comments Discussion of Advance Direct alyssa occurred with: Not Discussed Healthcare Agents on File Name Relationship Healthcare Agent Relationshi p Communication Carlene Behrer Spouse Health Care Power of Attorn ey Care Teams Paint Factory Worker Relationship Specialty Start Date End Date Victoria Saldana DO [address] [place] [address] PCP - General Family Medicine 02/20/22 documented as of this encounter
--- NOTE | 2024-01-21 14:41 | Hospitalist Progress Note ---
Date of Service January 21, 2024 Assessment & Plan (1) Ambulatory dysfunction: (2) Dementia: (3) Frequent falls: (4) CAD (coronary artery disease): (5) Hyperlipidemia: (6) Paroxysmal atrial fibrillation: (7) Hypertension: (8) DM (diabetes mellitus): (9) Colon cancer: (10) Prostate carcinoma: Plan: 88 yo M with PMhx significant for chronic diastolic heart failure (EF 60-65%, TTE 2022), CAD sp CABG, SSS status post PPM, PAF, valvular heart disease (mild /MR/TR), hypertension, hyperlipidemia, colon cancer status post surgery/incomplete chemotherapy, prostate cancer status post radiation, DM2 on oral medications, past history DVT, dementia, history of MRSA bacteremia who was placed at [facility] in [facility] after last hospital stay. This morning his took him out of the facility after he apparently cried/requested to be taken out of the personal-assisted to her AGAINST MEDICAL ADVICE. Admitted for placement as he was unable to safely be at home due to ambulatory dysfunction and dementia. H/O Dementia Ambulatory Dysfunction UA was ordered and was not suggestive of UTI Continue donepezil CM to work on placement reorientation as needed, May require 1:1, avoided sedating medications Paroxysmal AFib CAD S/P CABG SSS S/P PPM Chronic diastolic heart failure EF 60-65%, TTE 2022 No signs of exacerbation Valvular heart disease (mild /MR/TR) Continue home medications- metoprolol for rate control, diltiazem, imdur, asa, plavix Hypertension Hyperlipidemia Continue home medications Colon cancer S/p surgery/incomplete chemotherapy Prostate cancer s/p radiation Currently in remission DM II Last HbA1C: 8.6 in 2022, recheck with am labs ISS with accuchecks achs Home meds were held except continue jardiance for dm/heart failure DVT ppx: teds, scds Lines: PIV x 1 FEN/GI: HH/DM diet, easy to chew CODE: DNR/DNI I spent a total of 50 minutes coordinating, documenting and providing care for this patient excluding time spent in performance of separately billed services Admission and Anticipated Discharge Date Admission Date: January 20, 2024 Subjective Patient seen and examined Alert and oriented to person, knows he is in a hospital but not know which, not oriented to time No complaints Physical Exam Constitutional: + well hydrated; no acute distress Eyes: PERRL, conjunctivae normal, anicteric sclerae ENMT: external ear and nose normal, oropharynx normal Respiratory: normal respiratory effort, lungs clear to auscultation Cardiovascular: S1 S2 Gastrointestinal (Abdomen): normal bowel sounds, soft, nontender, no hepatosplenomegaly Neurologic: PERRL, EOMI, accommodation nl, no face palsy, no dysarthria Results & Data Results & Data Vital Signs (Past 12 Hours) Vital Signs Temp Pulse Resp BP Pulse Ox O2 Del Method 01/21/24 08:00 Room Air 01/21/24 07:34 36.5 C 72 16 151/92 H 94 Room Air Laboratory Results Abnormal lab results 01/21/24 01/21/24 01/21/24 Range/Units 06:06 07:41 16:27 RBC 4.46 L (4.70-6.10) M/uL Hgb 12.4 L (14.0-18.0) g/dl Hct 38.8 L (42.0-52.0) % RDW Std Deviation 49.4 H (36.4-46.3) fL RDW Coeff of Mini 15.5 H (11.5-14.5) % Chloride 109 H (98-107) mmol/L BUN 30 H (6-23) mg/dl BUN/Creatinine Ratio 38.0 H (10-20) Glucose 103 H (70-99(Fasting)) mg/dl POC Glucose 127 H 110 H (70-99) mg/dl Hemoglobin A1c 6.4 H (4.5-5.6) % (2) Dementia Dementia behavioral disturbance: without behavioral disturbance Dementia type: unspecified type Qualified Code(s): F03.90 - Unspecified dementia without behavioral disturbance (7) Hypertension Hypertension type: unspecified Qualified Code(s): I10 - Essential (primary) hypertension
--- NOTE | 2024-01-22 10:01 | Hospitalist Progress Note ---
Date of Service January 22, 2024 Assessment & Plan (1) Ambulatory dysfunction: (2) Dementia: (3) Frequent falls: (4) CAD (coronary artery disease): (5) Hyperlipidemia: (6) Paroxysmal atrial fibrillation: (7) Hypertension: (8) DM (diabetes mellitus): (9) Colon cancer: (10) Prostate carcinoma: Plan: 88 yo M with PMhx significant for chronic diastolic heart failure (EF 60-65%, TTE 2022), CAD sp CABG, SSS status post PPM, PAF, valvular heart disease (mild /MR/TR), hypertension, hyperlipidemia, colon cancer status post surgery/incomplete chemotherapy, prostate cancer status post radiation, DM2 on oral medications, past history DVT, dementia, history of MRSA bacteremia who was placed at [facility] in [facility] after last hospital stay. This morning his took him out of the facility after he apparently cried/requested to be taken out of the personal-assisted to her AGAINST MEDICAL ADVICE. Admitted for placement as he was unable to safely be at home due to ambulatory dysfunction and dementia. H/O Dementia Ambulatory Dysfunction Continue donepezil Discussed with CM who will start placement process Reorient as needed Paroxysmal AFib CAD S/P CABG SSS S/P PPM Chronic diastolic heart failure EF 60-65%, TTE 2022 No signs of exacerbation Valvular heart disease (mild /MR/TR) Continue home medications- metoprolol for rate control, diltiazem, imdur, asa, plavix Hypertension Hyperlipidemia Continue home medications Colon cancer S/p surgery/incomplete chemotherapy Prostate cancer s/p radiation Currently in remission DM II Last HbA1C: 8.6 in 2022, recheck with am labs ISS with accuchecks achs Home meds were held except continue jardiance for dm/heart failure DVT ppx: teds, scds Lines: PIV x 1 FEN/GI: HH/DM diet, easy to chew CODE: DNR/DNI I spent a total of 25 minutes coordinating, documenting and providing care for this patient excluding time spent in performance of separately billed services Admission and Anticipated Discharge Date Admission Date: January 20, 2024 Subjective Patient seen and examined Denied any complaints Alert and oriented to person, knows he is in a hospital but not the name, not oriented to time Physical Exam Constitutional: + well hydrated; no acute distress Eyes: PERRL, conjunctivae normal, anicteric sclerae ENMT: external ear and nose normal, oropharynx normal Respiratory: normal respiratory effort, lungs clear to auscultation Cardiovascular: Regular Gastrointestinal (Abdomen): normal bowel sounds, soft, nontender, no hepatosplenomegaly Musculoskeletal: No pedal edema Neurologic: PERRL, EOMI, accommodation nl, no face palsy, no dysarthria Psychiatric: Alert and oriented to person, knows he is in a hospital but not the name, not oriented to time. Cooperative Results & Data Results & Data Vital Signs (Past 12 Hours) Vital Signs Temp Pulse Resp BP Pulse Ox O2 Del Method 01/22/24 07:22 36.4 C L 61 16 168/87 H 98 Room Air (2) Dementia Dementia behavioral disturbance: without behavioral disturbance Dementia type: unspecified type Qualified Code(s): F03.90 - Unspecified dementia without behavioral disturbance (7) Hypertension Hypertension type: unspecified Qualified Code(s): I10 - Essential (primary) hypertension
--- NOTE | 2024-01-23 11:02 | Hospitalist Progress Note ---
Date of Service January 23, 2024 Assessment & Plan (1) Ambulatory dysfunction: (2) Dementia: (3) Frequent falls: (4) CAD (coronary artery disease): (5) Hyperlipidemia: (6) Paroxysmal atrial fibrillation: (7) Hypertension: (8) DM (diabetes mellitus): (9) Colon cancer: (10) Prostate carcinoma: Plan: 88 yo M with PMhx significant for chronic diastolic heart failure (EF 60-65%, TTE 2022), CAD sp CABG, SSS status post PPM, PAF, valvular heart disease (mild /MR/TR), hypertension, hyperlipidemia, colon cancer status post surgery/incomplete chemotherapy, prostate cancer status post radiation, DM2 on oral medications, past history DVT, dementia, history of MRSA bacteremia who was placed at [facility] in [facility] after last hospital stay. This morning his took him out of the facility after he apparently cried/requested to be taken out of the personal-usp to her AGAINST MEDICAL ADVICE. Admitted for placement as he was unable to safely be at home due to ambulatory dysfunction and dementia. H/O Dementia Ambulatory Dysfunction Continue donepezil CM working on placement Reorient as needed Paroxysmal AFib CAD S/P CABG SSS S/P PPM Chronic diastolic heart failure EF 60-65%, TTE 2022 No signs of exacerbation Valvular heart disease (mild /MR/TR) Continue home medications- metoprolol for rate control, diltiazem, imdur, asa, plavix Hypertension Hyperlipidemia Continue home medications Colon cancer S/p surgery/incomplete chemotherapy Prostate cancer s/p radiation Currently in remission DM II Last HbA1C: 8.6 in 2022, recheck with am labs ISS with accuchecks achs Home DM meds were held except continue jardiance for dm/heart failure DVT ppx: teds, scds Lines: PIV x 1 FEN/GI: HH/DM diet, easy to chew CODE: DNR/DNI I spent a total of 25 minutes coordinating, documenting and providing care for this patient excluding time spent in performance of separately billed services Admission and Anticipated Discharge Date Admission Date: January 20, 2024 Subjective Patient seen and examined Denied any complaints He is alert to person, knows he is in the hospital but thinks the hospital is in [place] Physical Exam Constitutional: + well hydrated; no acute distress Eyes: PERRL, conjunctivae normal, anicteric sclerae ENMT: external ear and nose normal, oropharynx normal Respiratory: normal respiratory effort, lungs clear to auscultation Cardiovascular: S1 S2 Gastrointestinal (Abdomen): normal bowel sounds, soft, nontender, no hepatosplenomegaly Musculoskeletal: No pedal edema Neurologic: PERRL, EOMI, accommodation nl, no face palsy, no dysarthria Results & Data Results & Data Vital Signs (Past 12 Hours) Vital Signs Temp Pulse Resp BP Pulse Ox O2 Del Method 01/23/24 07:05 36.3 C L 73 20 130/88 92 Room Air (2) Dementia Dementia behavioral disturbance: without behavioral disturbance Dementia type: unspecified type Qualified Code(s): F03.90 - Unspecified dementia without behavioral disturbance (7) Hypertension Hypertension type: unspecified Qualified Code(s): I10 - Essential (primary) hypertension
--- NOTE | 2024-01-24 10:50 | Hospitalist Progress Note ---
Date of Service January 24, 2024 Assessment & Plan (1) Ambulatory dysfunction: (2) Dementia: (3) Frequent falls: (4) CAD (coronary artery disease): (5) Hyperlipidemia: (6) Paroxysmal atrial fibrillation: (7) Hypertension: (8) DM (diabetes mellitus): (9) Colon cancer: (10) Prostate carcinoma: Plan: 88 yo M with PMhx significant for chronic diastolic heart failure (EF 60-65%, TTE 2022), CAD sp CABG, SSS status post PPM, PAF, valvular heart disease (mild /MR/TR), hypertension, hyperlipidemia, colon cancer status post surgery/incomplete chemotherapy, prostate cancer status post radiation, DM2 on oral medications, past history DVT, dementia, history of MRSA bacteremia who was placed at [place] in [facility] after last hospital stay. This morning his took him out of the facility after he apparently cried/requested to be taken out of the [facility] [facility] to her AGAINST MEDICAL ADVICE. Admitted for placement as he was unable to safely be at home due to ambulatory dysfunction and dementia. H/O Dementia Ambulatory Dysfunction Continue donepezil CM working on placement Reorient as needed Paroxysmal AFib CAD S/P CABG SSS S/P PPM Chronic diastolic heart failure EF 60-65%, TTE 2022 No signs of exacerbation Valvular heart disease (mild /MR/TR) Continue home medications- metoprolol for rate control, diltiazem, imdur, asa, plavix Hypertension Hyperlipidemia Continue home medications Colon cancer S/p surgery/incomplete chemotherapy Prostate cancer s/p radiation Currently in remission DM II Last HbA1C: 8.6 in 2022, recheck with am labs ISS with accuchecks achs Home DM meds were held except continue jardiance for dm/heart failure DVT ppx: teds, scds Lines: PIV x 1 FEN/GI: HH/DM diet, easy to chew CODE: DNR/DNI I spent a total of 25 minutes coordinating, documenting and providing care for this patient excluding time spent in performance of separately billed services Admission and Anticipated Discharge Date Admission Date: January 20, 2024 Subjective Patient seen and examined Alert and oriented to person only. Cooperative Denied any complaints Limited ROS due to cognitive impairment Physical Exam Constitutional: + well hydrated; no acute distress Eyes: PERRL, conjunctivae normal, anicteric sclerae ENMT: external ear and nose normal, oropharynx normal Respiratory: normal respiratory effort, lungs clear to auscultation Cardiovascular: Rate/Rhythm: regular rate and regular rhythm Gastrointestinal (Abdomen): normal bowel sounds, soft, nontender, no hepatosplenomegaly Musculoskeletal: No pedal edema Neurologic: PERRL, EOMI, accommodation nl, no face palsy, no dysarthria Results & Data Results & Data Vital Signs (Past 12 Hours) Vital Signs Temp Pulse Resp BP Pulse Ox O2 Del Method 01/24/24 09:00 Room Air 01/24/24 07:28 36.7 C 60 17 120/78 93 Room Air (2) Dementia Dementia behavioral disturbance: without behavioral disturbance Dementia type: unspecified type Qualified Code(s): F03.90 - Unspecified dementia without behavioral disturbance (7) Hypertension Hypertension type: unspecified Qualified Code(s): I10 - Essential (primary) hypertension
[2024-01-25] MEDS: diphenhydrAMINE Capsule 25 MG CAP PO ONE (05:00)
[2024-01-25] MEDS: ACETAMINOPHEN 325 MG TAB PO PRN (08:43)
--- NOTE | 2024-01-25 15:07 | Hospitalist Progress Note ---
Date of Service January 25, 2024 Assessment & Plan (1) Ambulatory dysfunction: (2) Dementia: (3) Frequent falls: (4) CAD (coronary artery disease): (5) Hyperlipidemia: (6) Paroxysmal atrial fibrillation: (7) Hypertension: (8) DM (diabetes mellitus): (9) Colon cancer: (10) Prostate carcinoma: Plan: 88 yo M with PMhx significant for chronic diastolic heart failure (EF 60-65%, TTE 2022), CAD sp CABG, SSS status post PPM, PAF, valvular heart disease (mild /MR/TR), hypertension, hyperlipidemia, colon cancer status post surgery/incomplete chemotherapy, prostate cancer status post radiation, DM2 on oral medications, past history DVT, dementia, history of MRSA bacteremia who was placed at [place] in [facility] after last hospital stay. This morning his took him out of the facility after he apparently cried/requested to be taken out of the personal[facility] to her AGAINST MEDICAL ADVICE. Admitted for placement as he was unable to safely be at home due to ambulatory dysfunction and dementia. H/O Dementia Ambulatory Dysfunction Continue donepezil CM working on placement Reorient as needed Paroxysmal AFib CAD S/P CABG SSS S/P PPM Chronic diastolic heart failure EF 60-65%, TTE 2022 No signs of exacerbation Valvular heart disease (mild /MR/TR) Continue home medications- metoprolol for rate control, diltiazem, imdur, asa, plavix Hypertension Hyperlipidemia Continue home medications Colon cancer S/p surgery/incomplete chemotherapy Prostate cancer s/p radiation Currently in remission DM II Last HbA1C: 8.6 in 2022, recheck with am labs ISS with accuchecks achs Home DM meds were held except continue jardiance for dm/heart failure DVT ppx: teds, scds Lines: PIV x 1 FEN/GI: HH/DM diet, easy to chew CODE: DNR/DNI I spent a total of 20 minutes coordinating, documenting and providing care for this patient excluding time spent in performance of separately billed services Admission and Anticipated Discharge Date Admission Date: January 20, 2024 Subjective Patient seen and examined Alert and oriented to person only. Cooperative Denied any complaints Limited ROS due to cognitive impairment Physical Exam Constitutional: + well hydrated; no acute distress Eyes: PERRL, conjunctivae normal, anicteric sclerae ENMT: external ear and nose normal, oropharynx normal Respiratory: normal respiratory effort, lungs clear to auscultation Cardiovascular: Rate/Rhythm: regular rate and regular rhythm Gastrointestinal (Abdomen): normal bowel sounds, soft, nontender, no hepatosplenomegaly Musculoskeletal: No pedal edema Neurologic: PERRL, EOMI, accommodation nl, no face palsy, no dysarthria Psychiatric: Alert and oriented to person only Results & Data Results & Data Vital Signs (Past 12 Hours) Vital Signs Temp Pulse Pulse Resp BP Pulse Ox O2 Del Method 01/25/24 11:30 36.4 C L 60 24 124/68 96 Room Air 01/25/24 08:18 36.4 C L 62 24 120/78 96 Room Air 01/25/24 07:30 Room Air, CPAP 01/25/24 07:09 36.3 C L 63 22 140/89 94 Room Air (2) Dementia Dementia behavioral disturbance: without behavioral disturbance Dementia type: unspecified type Qualified Code(s): F03.90 - Unspecified dementia without behavioral disturbance (7) Hypertension Hypertension type: unspecified Qualified Code(s): I10 - Essential (primary) hypertension
[2024-01-25] MEDS: diphenhydrAMINE 2%/ZINC 0.1% CREAM 28.4GM TUBE EXT PRN (20:39)
--- NOTE | 2024-01-26 10:57 | Hospitalist Progress Note ---
Date of Service January 26, 2024 Assessment & Plan (1) Ambulatory dysfunction: (2) Dementia: (3) Frequent falls: (4) CAD (coronary artery disease): (5) Hyperlipidemia: (6) Paroxysmal atrial fibrillation: (7) Hypertension: (8) DM (diabetes mellitus): (9) Colon cancer: (10) Prostate carcinoma: Plan: 88 yo M with PMhx significant for chronic diastolic heart failure (EF 60-65%, TTE 2022), CAD sp CABG, SSS status post PPM, PAF, valvular heart disease (mild /MR/TR), hypertension, hyperlipidemia, colon cancer status post surgery/incomplete chemotherapy, prostate cancer status post radiation, DM2 on oral medications, past history DVT, dementia, history of MRSA bacteremia who was placed at [place] in [facility] after last hospital stay. This morning his took him out of the facility after he apparently cried/requested to be taken out of the personal-group home to her AGAINST MEDICAL ADVICE. Admitted for placement as he was unable to safely be at home due to ambulatory dysfunction and dementia. H/O Dementia Ambulatory Dysfunction Continue donepezil CM working on placement Reorient as needed Paroxysmal AFib CAD S/P CABG SSS S/P PPM Chronic diastolic heart failure EF 60-65%, TTE 2022 No signs of exacerbation Valvular heart disease (mild /MR/TR) Continue home medications- metoprolol for rate control, diltiazem, imdur, asa, plavix Hypertension Hyperlipidemia Continue home medications Colon cancer S/p surgery/incomplete chemotherapy Prostate cancer s/p radiation Currently in remission DM II Last HbA1C: 8.6 in 2022, recheck with am labs ISS with accuchecks achs Home DM meds were held except continue jardiance for dm/heart failure DVT ppx: teds, scds Lines: PIV x 1 FEN/GI: HH/DM diet, easy to chew CODE: DNR/DNI I spent a total of 25 minutes coordinating, documenting and providing care for this patient excluding time spent in performance of separately billed services Admission and Anticipated Discharge Date Admission Date: January 20, 2024 Subjective Patient seen and examined Alert and oriented to person only. Cooperative noted some rash on the back that were itchy Limited ROS due to cognitive impairment Physical Exam Constitutional: + well hydrated; no acute distress Eyes: PERRL, conjunctivae normal, anicteric sclerae ENMT: external ear and nose normal, oropharynx normal Respiratory: normal respiratory effort, lungs clear to auscultation Cardiovascular: Rate/Rhythm: regular rate and regular rhythm Gastrointestinal (Abdomen): normal bowel sounds, soft, nontender, no hepatosplenomegaly Musculoskeletal: No pedal edema Skin: Some papular rash on back Neurologic: PERRL, EOMI, accommodation nl, no face palsy, no dysarthria Results & Data Results & Data Vital Signs (Past 12 Hours) Vital Signs Temp Pulse Pulse Resp BP Pulse Ox O2 Del Method 01/26/24 08:15 63 128/86 01/26/24 07:32 36.2 C L 60 22 135/75 99 Room Air (2) Dementia Dementia behavioral disturbance: without behavioral disturbance Dementia type: unspecified type Qualified Code(s): F03.90 - Unspecified dementia without behavioral disturbance (7) Hypertension Hypertension type: unspecified Qualified Code(s): I10 - Essential (primary) hypertension
--- NOTE | 2024-01-27 12:22 | Discharge Summary ---
Date of Service January 27, 2024 Admission HPI Per Admitting Provider This is an 88 yo M with PMhx significant for chronic diastolic heart failure (EF 60-65%, TTE 2022), CAD sp CABG, SSS status post PPM, PAF, valvular heart disease (mild /MR/TR), hypertension, hyperlipidemia, colon cancer status post surgery/incomplete chemotherapy, prostate cancer status post radiation, DM2 on oral medications, past history DVT, dementia, history of MRSA bacteremia who was placed at [place] in [facility] after last hospital stay. This morning his took him out of the facility after he apparently cried/requested to be taken out of the personal-[facility] to her AGAINST MEDICAL ADVICE. supervisor lace tearing in the ER have contacted the facility who state that they are not willing to accept the patient back. Office of aging was also involved and their department stated that they were not going to getting involved in this case. I personally called the facility of [facility] in [place], received contact with a supervising nursing liaison, Karlie, who adamantly stated that their facility do es not accept patients back after they have left A, even in this patient's case who has significant dementia and even though he has been a resident of [facility] since Jul 2023. There was not another person available to speak with as she states she was the only one one available to take my call. Unfortunately the patient has only the options of going home to an unsafe environment, or be admitted to the hospital for placement again to dementia facility.. Pt at baseline requires two person assist and a belt to help steady him for walking per ER staff who spoke with the . No family is present at bedside during my evaluation. Patient is pleasantly confused, thinks that it is 1996, that he is in [facility], and cannot name the president but calls refers to him as " that cuckoo son of a b ". Pt follows basic commands. Denies any acute complaints. States that he is able to eat without any issues or complaints. Admission Exam Per Admitting Provider General: awake, alert, no apparent distress, elderly white male, BMI of 31 Head: Normocephalic, atraumatic ENT: PERRL, EOMI, no pharyngeal exudate, mucous membranes moist Chest: Clear to auscultation, on room air, no adventitious breath sounds Cardiac: Regular rate and rhythm, + systolic murmur, no JVD, normal peripheral pulses, good capillary refill Abdominal: NABS x 4 quadrants, soft, nondistended, nontender to palpation, no rebound or guarding Extremities: + multiple areas of abrasions/scratches over bilateral lower extremities, no peripheral edema or erythema, calfs nontender to palpation Psych: Normal mood and affect Neuro: AAO to self, not to time or place, strength intact bilaterally and rated 5/5, no motor deficits, speech is clear, no peripheral sensory deficits Principal Diagnosis ambulatory dysfunction Discharge Exam General: awake, alert, no apparent distress, elderly white male, BMI of 30-31 Head: Normocephalic, atraumatic ENT: PERRL, EOMI, no pharyngeal exudate, mucous membranes moist Chest: Clear to auscultation, on room air, no adventitious breath sounds Cardiac: Regular rate and rhythm, + systolic murmur, no JVD, normal peripheral pulses, good capillary refill Abdominal: NABS x 4 quadrants, soft, nondistended, nontender to palpation, no rebound or guarding Extremities: + multiple areas of abrasions/scratches over bilateral lower extremities, no peripheral edema or erythema, calfs nontender to palpation Psych: Normal mood and affect Neuro: AAO to self, not to time or place, strength intact bilaterally and rated 5/5, no motor deficits, speech is clear, no peripheral sensory deficits Discharge Data Allergies Allergy/AdvReac Type Severity Reaction Status Date / Time hydrocodone AdvReac Intermediate MAKES PT Verified 01/20/24 16:02 HALLUCINATE meperidine AdvReac Intermediate psych Verified 01/20/24 16:02 complications oxycodone AdvReac Intermediate MAKES PT Verified 01/20/24 16:02 HALLUCINATES Consultations 01/20/24 16:07 ED Decision to Admit Stat Hospital Course (1) Ambulatory dysfunction: (2) Dementia: (3) Frequent falls: (4) CAD (coronary artery disease): (5) Hyperlipidemia: (6) Paroxysmal atrial fibrillation: (7) Hypertension: (8) DM (diabetes mellitus): (9) Colon cancer: (10) Prostate carcinoma: Per prior attending w/ addendum: 88 yo M with PMhx significant for chronic diastolic heart failure (EF 60-65%, TTE 2022), CAD sp CABG, SSS status post PPM, PAF, valvular heart disease (mild /MR/TR), hypertension, hyperlipidemia, colon cancer status post surgery/incomplete chemotherapy, prostate cancer status post radiation, DM2 on oral medications, past history DVT, dementia, history of MRSA bacteremia who was placed at [facility] in [facility] after last hospital stay. This morning his took him out of the facility after he apparently cried/requested to be taken out of the personal[facility] to her AGAINST MEDICAL ADVICE. Admitted for placement as he was unable to safely be at home due to ambulatory dysfunction and dementia. H/O Dementia Ambulatory Dysfunction Continue donepezil CM working on placement Reorient as needed Paroxysmal AFib CAD S/P CABG SSS S/P PPM Chronic diastolic heart failure EF 60-65%, TTE 2022 No signs of exacerbation Valvular heart disease (mild /MR/TR) Continue home medications- metoprolol for rate control, diltiazem, imdur, asa, plavix Hypertension Hyperlipidemia Continue home medications Colon cancer S/p surgery/incomplete chemotherapy Prostate cancer s/p radiation Currently in remission DM II Last HbA1C: 8.6 in 2022, recheck with am labs ISS with accuchecks achs Home DM meds were held except continue jardiance for dm/heart failure DVT ppx: teds, scds Lines: PIV x 1 FEN/GI: HH/DM diet, easy to chew CODE: DNR/DNI Addendum 01/27/2024: Patient was seen and examined at bedside as a follow-up of ambulatory dysfunction ISO dementia history. Patient denies any pain or discomfort, patient reports he is at his baseline. Reports eating okay and moving bowels okay. Patient is being discharged back to [facility]. Patient to follow-up with PCP in a week time upon discharge. Home Health Attestation I certify that this patient is under my care and that I, or a physicians a ssistant working with me, had a face to-face encounter that meets the home health [id number] encounter requirements with this patient. The encounter with the patient was in whole, or in part, for the following medical condition, which is the primary reason for home health care (list medical condition): I certify that, based on my findings, the following services are medically necessary home health services: My clinical findings support the need for the above services because: Further, I certify that my clinical findings support that this patient is homebound (i.e. absences from home require considerable and taxing effort and are for medical reasons or yazidi services or infrequently or of short duration when for other reasons) because: Certification for Home Health Services: Based on the above findings, I certify that this patient is confined to the home and needs intermittent residential care, physical therapy and/or speech therapy or continues to need occupational therapy. The patient is under my care, and I have initiated the establishment of the plan of care. This patient will be followed by a physician who will periodically review the plan of care. Total Time Total Time Spent Total Time Spent (In Minutes): 40 Discharge Plan Discharge Items Patient Disposition: Personal Long Term Reason For Visit: ADVANCED DEMENTIA, PLACEMENT Discharge Diagnosis: History of dementia Ambulatory dysfunction Activity: Resume your previous activity Non-emergency contact: Primary Care Provider Call non-emergency contact if: you have any medication questions, your symptoms worsen and your temperature is above 101.5 Follow-up/Referrals: Victoria Saldana DO [Primary Care Provider] - Diet: Carb Consistent or DM2 and Heart Healthy Addtl Attending Provider Instructions: Follow-up with your primary care physician within a week time and likely you will need labs CBC/CMP/magnesium/phosphorus. Continue with physical therapy, take your medications as prescribed. Please make sure that you are able to get your medications today by calling your pharmacy before you leave the hospital so that your treatment continuity is not broken. Pending Studies at Discharge: No Stand-Alone Forms: My Tripology, Smoking Cessation Skilled Items Patient informed of condition?: Yes DNR: Yes Discharge Level of Care: Other Communicable Disease: No Discharge Prognosis: Stable Lines: None Urinary Catheter: No Medications and DC Order Prescriptions: Continued atorvastatin 40 mg tablet 40 mg PO HS omega-3 fatty acids 1,000 mg Capsule 1,000 mg PO QAM loperamide 2 mg Capsule 2 mg PO DIRECTED PRN (Reason: Diarrhea) metoprolol succinate 50 mg tablet extended release 24 hr 50 mg PO QAM donepezil 10 mg tablet 10 mg PO QPM Rx Instructions: Take with largest meal of day isosorbide mononitrate 30 mg tablet extended release 24 hr 30 mg PO QAM clopidogrel 75 mg tablet 75 mg PO QAM aspirin 81 mg Tablet,Delayed Release (Dr/Ec) 81 mg PO QAM citalopram 20 mg tablet 20 mg PO QAM meclizine 25 mg Tablet 25 mg PO DAILY PRN (Reason: dizzyness) metformin 500 mg tablet extended release 24 hr 500 mg PO BID biotin 5 mg Tablet 5 mg PO QAM melatonin 10 mg Tablet 10 mg PO HS empagliflozin 25 mg Tablet 25 mg PO QAM Rybelsus 7 mg tablet 7 mg PO QAM Rx Instructions: ORDERED 01/17/24 FOR 14 DAYS docusate sodium 100 mg Capsule 100 mg PO BID Qty: 60 0RF acetaminophen [Tylenol] 325 mg Tablet 650 mg PO Q6H PRN (Reason: PAIN/FEVER) multivitamin with minerals Tablet 1 tab PO QAM Tradjenta 5 mg tablet 5 mg PO QAM Rx Instructions: ORDERED 01/13/24 FOR 14 DAYS Discharge Orders: Discharge Order (Routine); Ordered 01/27/24 Ordered By: Iman Bernal Admission Data Admit Date/Time: 01/20/24 16:28 Attending Provider: Iman Bernal Admit Provider: Adrian Ordoñez Primary Care Provider: Victoria Saldana Other Providers: Adrian Ordoñez
== END 2024-01-27 15:46 | disposition home or self-care (01) | DRG 884 ==
LOC: ED 14:23 → 3E 16:28 → SUATTDRO 16:28 → 3E 18:02